=== PATIENT | female | born 1955 | race Caucasian/White ===

== ENCOUNTER 2016-05-05 16:30 | Emergency (ER) | payer OTHER ==
[~2016-05-05] VITALS: Ht 160 cm; Wt 90.5 kg
[~2016-05-05 16:30] MED LIST: ALBUAER2 INH; ALEN70TA4 PO; AMIT100T2 PO; BUPR-267 PO; BUTA1CAP17 PO; CYCL10TA6 PO; FLUT0.0529 NAE; GABA600T PO; GLIP10TA9 PO; HYDR-5688 PO; LVS125 PO; MECL1TAB42 PO; MELO15TA4 PO; METF1000 PO; PRED10TA PO; SITA100T3 PO; TEMA30CA4 PO; TIOTCAP INH
[2016-05-05 16:35] VITALS: BP 154/48; PULSE 108; TEMP 37; O2SAT 93; Ht 160 cm; Wt 90.5 kg
--- NOTE | 2016-05-05 16:51 | EMERGENCY ROOM VISIT NOTE ---
ED Visit Note First contact with patient: 16:41 CHIEF COMPLAINT: Right third and fourth finger pain HISTORY OF PRESENT ILLNESS: This 60-year-old female presents the ER with chief complaint of pain and swelling in her right third and fourth finger secondary to trigger finger. The patient has an appointment with the fire management specialist for an injection into her finger. She was in pain today at work so her employer sent her over to the ER. The patient already has tramadol at home to take for pain. She has only been taking ibuprofen on an as-needed basis. The patient states that intermittently her fingers get stuck in the flexed position and she has to take her left hand to straighten her fingers. REVIEW OF SYSTEMS: 6 system review was performed and was negative unless stated otherwise in history of present illness. PMH: The patient is healthy; diabetes, kidney disease, carpal tunnel surgery, trigger finger surgery, rotator cuff tear repair, osteoporosis SOCIAL HISTORY: Patient lives with her son. She admits to tobacco use but denies any alcohol use PHYSICAL EXAM: Vital Signs: Were reviewed Reviewed Nurse's notes. GEN.: 60-year -old white female appears in no acute distress. MENTAL Status: Alert and oriented 3. RIGHT HAND: No gross bony deformity noted. No erythema or edema noted. The patient has tenderness to palpation over the distal third and fourth metacarpals. EMERGENCY DEPARTMENT COURSE: The patient was evaluated. I informed the patient that the injections by her fire management specialist or either hand surgeon were the definitive care or actually surgery. The patient understood this stated that her employer sent her over for evaluation. The patient's fingers were maria a taped together and she was discharged home in stable condition. DIAGNOSIS: Trigger finger of the right third and fourth fingers DISCHARGE INSTRUCTIONS: Keep fingers maria a taped if this aids in pain relief. Ibuprofen 600 mg every 6 hours with food for pain. Continue tramadol as needed for more severe pain. Keep scheduled appointment with rheumatology. Problem List Medical Problems: (1) CHOLELITHIASIS NOS Status: Chronic (2) DIAB ADAM WO COMPL, TYPE II OR UNSPEC TYPE, NOT UNCNTRLD Status: Chronic (3) ESOPHAGEAL REFLUX Status: Chronic (4) EXAM PRE-OPERATIVE NEC Status: Chronic (5) HYPERLIPIDEMIA NEC/NOS Status: Chronic (6) HYPERTENSION NOS Status: Chronic (7) MIGRAINE UNSPECIFIED W/O INTRACTABLE MIGRAINE Status: Chronic (8) OBESITY, NOS Status: Chronic (9) TOBACCO USE DISORDER Status: Chronic Current/Historical Medications Scheduled Alendronate Sodium (Fosamax), 70 MG PO WK Amitriptyline Hcl (Elavil), 100 MG PO HS Atorvastatin (Atorvastatin Calcium), 20 MG PO DAILY Bupropion Hcl (Bupropion Hcl Er), 150 MG PO DAILY Fluticasone Propionate (Nasal) (Flonase), 2 SPRAYS MARIANNE DAILY Gabapentin (Neurontin), 600 MG PO TID Glipizide (Glucotrol), 10 MG PO BID Lisinopril (Zestril), 20 MG PO QPM Meloxicam (Mobic), 15 MG PO QPM Metformin Hcl (Glucophage), 1,000 MG PO BIDM Pantoprazole (Protonix), 40 MG PO DAILY Ropinirole (Requip), 1 MG PO HS Sitagliptin Phosphate (Januvia), 100 MG PO DAILY Temazepam (Restoril), 30 MG PO HS Tiotropium [place] (Spiriva Handihaler), 1 CAP INH DAILY Scheduled PRN Albuterol (Ventolin Hfa), 2 PUFFS INH QID PRN for SOB/Wheezing Rwisjcepag-Qjslwafqvxvpl-Lasuo (Fioricet), 1 CAP PO Q6H PRN for Migraine Cyclobenzaprine Hcl (Flexeril), 10 MG PO TID PRN for Muscle Spasm Hydrocodone/Acetaminophen 5MG/325MG ([place] 5MG/325MG), 1 TABLET PO Q6 PRN for Pain Hyoscyamine Sulfate (Hyoscyamine Sulfate), 1 TAB PO Q4H PRN for CRAMPING/ STOMACH PAIN Levofloxacin (Levaquin), 500 MG PO DAILY PRN for copd rescue kit Meclizine Hcl (Meclizine Hcl), 1 TAB PO TID PRN for Dizziness or Vertigo Prednisone Tab (Prednisone), 10 MG PO UD PRN for copd rescue kit Tramadol (Ultram), 50-100 MG PO Q6H PRN for Pain Allergies Coded Allergies: Adhesives (Verified Allergy, Unknown, SWELLING;RASH, 11/17/15) Vital Signs Date Time Temp Pulse Resp B/P Pulse Ox O2 Delivery O2 Flow Rate FiO2 05/05/16 16:35 37.0 108 18 154/48 93 Room Air Departure Information Referrals Samy Arriola M.D.(HUGH) (PCP) Patient Instructions [facility]
[2016-05-05] MEDS ORDERED: PRVHFAIN INH (17:13)
[2016-05-05] MEDS ORDERED: SPRIN/30 INH (17:13)
[2016-05-05] MEDS ORDERED: TRAZ50TA35 PO (17:13)
[2016-05-05] MEDS ORDERED: FLUT0.15 NAE (17:13)
[2016-05-05] MEDS ORDERED: LISI-725 PO (17:25)
[2016-05-05] MEDS ORDERED: ROPI1TAB PO (17:26)
[2016-05-05] MEDS ORDERED: LPT/20 PO (21:06)
[2016-05-05] MEDS ORDERED: TRAM-10 PO (23:54)
[2016-05-05] MEDS ORDERED: LEVO1TAB33 PO (23:56)
[2016-05-05] MEDS ORDERED: PANT40TA PO (23:58)
== END 2016-05-05 17:04 | disposition home or self-care (01) ==
LOC: C.EDB 16:31 → C.EDD 17:04
DX: M65.331 Trigger finger, right middle finger (principal); M65.341 Trigger finger, right ring finger; K21.9 Gastro-esophageal reflux disease without esophagitis; E11.9 Type 2 diabetes mellitus without complications; E78.5 Hyperlipidemia, unspecified; I10 Essential (primary) hypertension; F17.200 Nicotine dependence, unspecified, uncomplicated

== ENCOUNTER 2016-12-09 11:13 | Emergency (ER) | payer OTHER ==
[~2016-12-09] VITALS: Ht 162.6 cm; Wt 94.6 kg
[~2016-12-09 11:13] MED LIST changes: -ALBUAER2 INH; -FLUT0.0529 NAE; +FLUT0.15 NAE; -HYDR-5688 PO; +LEVO1TAB33 PO; +LISI-725 PO; +LPT/20 PO; +PANT40TA PO; +PRVHFAIN INH; +ROPI1TAB PO; +SPRIN/30 INH; -TEMA30CA4 PO; -TIOTCAP INH; +TRAM-10 PO; +TRAZ50TA35 PO
[2016-12-09 11:15] VITALS: TEMP 37; O2SAT 92; Ht 162.6 cm; Wt 94.6 kg
[2016-12-09] MEDS ORDERED: ACETAMINOPHEN 500 MG TAB PO STA (12:10)
--- NOTE | 2016-12-09 12:13 | DIAGNOSTIC IMAGING REPORT ---
CHEST ONE VIEW PORTABLE CLINICAL HISTORY: Chest pain. COMPARISON STUDY: Chest radiograph November 17, 2015. FINDINGS: Lung volumes are normal. There is no consolidation to suggest pneumonia and there is no evidence of pulmonary edema. Linear left lower lung opacity is suggestive of atelectasis. Cardiomediastinal silhouette is normal. There is evidence for a previous distal right clavicular resection. IMPRESSION: No acute cardiopulmonary findings. Electronically signed by: Nishant Kern M.D. 12/09/2016 12:12 PM Dictated Date/Time: 12/09/2016 12:11 PM
--- NOTE | 2016-12-09 12:18 | EMERGENCY ROOM VISIT NOTE ---
History Report prepared by Ivana: London Billingsley Under the Supervision of: Dr. Miguel Azul M.D. First contact with patient: 12:07 Chief Complaint: CHEST PAIN Stated Complaint: CHEST PAIN Nursing Triage Summary: Patient arrived via ALS from work at [employer] on campus. Patient c/o heaviness in chest and intermittent, sharp 8/10 chest pain that started around 0900. Pain radiates to patients left arm/shoulder. Denies SOB, N/V/D. Patient given 325 aspirin by medics. Pain is reproducable with palpation. Hx of COPD, Type 2 DM, GERD. History of Present Illness The patient is a 61 year old female with a history of COPD and GERD who presents to the Emergency Room via ambulance with complaints of episodes of chest pain that started around 3 and a half hours ago. She says that she was getting ready to leave for work when she started having intermittent sharp chest pain. The patient states that the episodes are still happening, and the episodes last around a minute or 2. She rates the pain as an 8 out of 10 in severity. The patient notes that nothing in particular brings the pain on, and the pain has intermittently radiated to under her left shoulder blade. The patient adds that she has had an intermittent "weird" sensation into her left shoulder, and down her left arm. She states that taking a deep breath does not worsen the pain. She notes that this morning she has had more shortness of breath than usual when walking up a hill. The patient says that she has never had this chest pain before. She denies any nausea, sweating, cough, congestion, recent trauma, falls, or excess work. She also denies any recent long trips by car, plane or train. The patient has a family history of heart disease, but no personal history of it. The patient also has no history of clots in her legs or lungs. The patient says that her health has been at baseline recently. She adds that she had a stress test in August and . Source of History: patient Onset: 3 and a half hours ago Position: chest Symptom Intensity: 8/10 Quality: sharp Timing: other (episodes) Associated Symptoms: + SOB (worsened sob with exertion), + back pain (left shoulder blade), No diaphoresis, No cough, No nausea Note: Associated symptoms: Intermittent "weird" sensation into left shoulder, and down left arm. Denies congestion, recent trauma, falls, or excess work. Review of Systems See HPI for pertinent positives & negatives. A total of 10 systems reviewed and were otherwise negative. Past Medical & Surgical Medical Problems: (1) CHOLELITHIASIS NOS (2) DIAB ADAM WO COMPL, TYPE II OR UNSPEC TYPE, NOT UNCNTRLD (3) ESOPHAGEAL REFLUX (4) EXAM PRE-OPERATIVE NEC (5) HYPERLIPIDEMIA NEC/NOS (6) HYPERTENSION NOS (7) MIGRAINE UNSPECIFIED W/O INTRACTABLE MIGRAINE (8) OBESITY, NOS (9) TOBACCO USE DISORDER Family History Cancer Diabetes mellitus Heart disease Lung disease Social History Smoking Status: Current Every Day Smoker Alcohol Use: occasionally Drug Use: none Marital Status: single Housing Status: lives with family Occupation Status: employed Current/Historical Medications Scheduled Alendronate Sodium (Fosamax), 70 MG PO WK Atorvastatin (Atorvastatin Calcium), 20 MG PO DAILY Bupropion Hcl (Bupropion Hcl Er), 150 MG PO DAILY Fluticasone Propionate (Nasal) (Flonase Allergy Relief), 2 SPRAYS MARIANNE DAILY Gabapentin (Neurontin), 600 MG PO QID Glipizide (Glucotrol), 10 MG PO BID Lisinopril (Zestril), 20 MG PO QPM Meloxicam (Mobic), 15 MG PO QPM Metformin Hcl (Glucophage), 1,000 MG PO BIDM Pantoprazole (Protonix), 40 MG PO DAILY Ropinirole (Requip), 1.5 MG PO HS Sitagliptin Phosphate (Januvia), 100 MG PO DAILY Tiotropium [place] (Spiriva Handihaler), 1 CAP INH DAILY Trazodone Hcl (Trazodone), 150 MG PO HS Scheduled PRN Albuterol (Ventolin Hfa), 2 PUFFS INH QID PRN for SOB/Wheezing Iogyzonrzv-Eanukqdcccqdl-Zrjys (Fioricet), 1 CAP PO Q6H PRN for Migraine Cyclobenzaprine Hcl (Flexeril), 10 MG PO TID PRN for Muscle Spasm Levofloxacin (Levaquin), 500 MG PO DAILY PRN for COPD Resue Kit Prednisone Tab (Prednisone), 10 MG PO UD PRN for COPD Rescue Kit Tramadol (Ultram), 50-100 MG PO Q6H PRN for Pain Allergies Coded Allergies: Adhesives (Verified Allergy, Unknown, SWELLING;RASH, 12/09/16) Physical Exam Vital Signs Date Time Temp Pulse Resp B/P (MAP) Pulse Ox O2 Delivery O2 Flow Rate FiO2 12/09/16 14:40 89 18 115/83 93 12/09/16 13:34 93 12/09/16 13:13 86 18 109/63 91 Room Air 12/09/16 11:20 97 12/09/16 11:15 37.0 96 20 132/72 92 Room Air 12/09/16 11:15 92 Room Air 12/09/16 11:15 92 Room Air Physical Exam GENERAL: Patient is in no acute distress. HEENT: No acute trauma, normocephalic atraumatic, mucous membranes moist, no nasal congestion, no scleral icterus. NECK: No stridor, no adenopathy, no meningismus, trachea is midline. LUNGS: Clear to auscultation bilaterally, no wheeze, no rhonchi, breath sounds equal. HEART: Subtle systolic murmur with a regular rate and rhythm. CHEST: Tenderness to left chest next to the medial left breast. ABDOMEN: Soft, nontender, bowel sounds positive, no hernias, no peritonitis. EXTREMITIES: No cyanosis or edema, full range of motion of all the joints without pain or difficulty, no signs for acute trauma. NEUROLOGIC: Oriented x 3, no acute motor or sensory deficits, no focal weakness. SKIN: No rash, no jaundice, no diaphoresis. Medical Decision & Procedures ER Provider Diagnostic Interpretation: X-ray results as stated below per interpretation by me and the radiologist: CHEST ONE VIEW PORTABLE CLINICAL HISTORY: Chest pain. COMPARISON STUDY: Chest radiograph November 17, 2015. FINDINGS: Lung volumes are normal. There is no consolidation to suggest pneumonia and there is no evidence of pulmonary edema. Linear left lower lung opacity is suggestive of atelectasis. Cardiomediastinal silhouette is normal. There is evidence for a previous distal right clavicular resection. IMPRESSION: No acute cardiopulmonary findings. Electronically signed by: Nishant Kern M.D. 12/09/2016 12:12 PM Dictated Date/Time: 12/09/2016 12:11 PM Laboratory Results 12/09/16 11:15 12/09/16 11:15 Test 12/09/16 11:15 12/09/16 13:37 Red Blood Count 4.41 M/uL (4.2-5.4) Mean Corpuscular Volume 90.7 fL (80-100) Mean Corpuscular Hemoglobin 30.4 pg (25-34) Mean Corpuscular Hemoglobin Concent 33.5 g/dl (32-36) RDW Standard Deviation 46.2 fL (36.4-46.3) RDW Coefficient of Variation 13.9 % (11.5-14.5) Mean Platelet Volume 9.5 fL (7.4-10.4) Prothrombin Time 10.3 SECONDS (9.0-12.0) Prothromb Time International Ratio 1.0 (0.9-1.1) Activated Partial Thromboplast Time 28.2 SECONDS (21.0-31.0) Partial Thromboplastin Ratio 1.1 Anion Gap 8.0 mmol/L (3-11) Est Creatinine Clear Calc Drug Dose 92.8 ml/min Estimated GFR () 106.5 Estimated GFR (Non- 91.9 BUN/Creatinine Ratio 7.6 (10-20) Calcium Level 8.5 mg/dl (8.5-10.1) Total Bilirubin 0.2 mg/dl (0.2-1) Aspartate Amino Transf (AST/SGOT) 12 U/L (15-37) Alanine Aminotransferase (ALT/SGPT) 24 U/L (12-78) Alkaline Phosphatase 76 U/L (45-117) Total Creatine Kinase 126 U/L (26-192) Creatine Kinase MB 1.6 ng/ml (0.5-3.6) Creatine Kinase MB Ratio 1.3 (0-3.0) Total Protein 6.5 gm/dl (6.4-8.2) Albumin 3.5 gm/dl (3.4-5.0) Globulin 3.0 gm/dl (2.5-4.0) Albumin/Globulin Ratio 1.2 (0.9-2) Bedside Troponin I < 0.030 ng/ml (0-0.045) Laboratory results reviewed by me. Medications Administered Medications (Trade) Dose Ordered Sig/Saima Route Start Time Stop Time Status Last Admin Dose Admin Acetaminophen (Tylenol Tab) 1,000 mg NOW STAT PO 12/09/16 12:10 12/09/16 12:15 DC 12/09/16 12:22 1,000 MG ECG Indication: chest pain Rate (beats per minute): 93 Rhythm: normal sinus Findings: no acute ischemic change, no ectopy ED Course 1208: The patient was evaluated in room C10. A complete history and physical exam was performed. 1210: Ordered Tylenol Tab 1000 mg PO. 1333: I reevaluated and updated the patient. 1407: Reevaluated the patient and she is resting comfortably. Discussed results and discharge instructions: she verbalized understanding and agreement. The patient is ready for discharge. Medical Decision Differential diagnosis includes but is not limited to musculoskeletal pain, PE, HI, pericarditis, aortic dissection, pneumothorax. There is no leukocytosis or concerning anemia. No significant electrolyte abnormality, kidney failure or hepatitis. EKG shows a normal sinus rhythm, no acute ischemia. Cardiac enzyme testing 2 is not consistent with acute cardiac injury. Chest x-ray does not show pneumonia, mediastinal widening or pneumothorax. There is no coagulopathy. The patient had already received oral aspirin. She was given oral Tylenol for additional pain control. The patient's cardiac workup is benign. Her chest pain is reproducible on exam. I do think the pain is musculoskeletal. She is being discharged with anti-inflammatories, heat and rest. If worsening, she can return. Medication Reconcilliation Current Medication List: was personally reviewed by me Blood Pressure Screening Patient's blood pressure: Normal blood pressure Impression Primary Impression: Left sided chest pain Scribe Attestation The scribe's documentation has been prepared under my direction and personally reviewed by me in its entirety. I confirm that the note above accurately reflects all work, treatment, procedures, and medical decision making performed by me. Departure Information Dispostion Home / Self-Care Referrals Samy Arriola M.D.(HU[facility]) (PCP) Forms Call Back Authorization, HOME CARE DOCUMENTATION FORM, IMPORTANT VISIT INFORMATION Patient Instructions My [facility] Simple Emotion Additional Instructions motrin 600 mg 3x per day for 3 days may also use tylenol for pain no heavy lifting return for worsening symptoms follow with mary glass this week or early next heart testing today was all ok
[2016-12-09 12:41] LABS: MEAN CELL VOLUME 90.7 fL (80-100); MEAN CORPUSCULAR HEMOGLOBIN 30.4 pg (25-34); MEAN CORPUSCULAR HGB CONC 33.5 g/dl (32-36); MEAN PLATELET VOLUME 9.5 fL (7.4-10.4); PLATELET COUNT 214 K/uL (130-400); RED BLOOD COUNT 4.41 M/uL (4.2-5.4); WHITE BLOOD COUNT 6.99 K/uL (4.8-10.8)
[2016-12-09 12:43] LABS: PARTIAL THROMBOPLASTIN RATIO 1.1; PROTHROMBIN TIME (PATIENT) 10.3 SECONDS (9.0-12.0)
[2016-12-09 12:52] LABS: BUN/CREATININE RATIO 7.6 (10-20); CALCIUM 8.5 mg/dl (8.5-10.1); CREATININE 0.71 mg/dl (0.60-1.20); POTASSIUM 4.3 mmol/L (3.5-5.1)
[2016-12-09 12:57] LABS: ALB/GLOB RATIO 1.2 (0.9-2); CKMB/CK RATIO 1.3 (0-3.0)
[2016-12-09 14:40] VITALS: BP 115/83; PULSE 89; O2SAT 93
== END 2016-12-09 14:41 | disposition home or self-care (01) ==
LOC: EDBD 11:13 → C.EDC 11:14
DX: R07.9 Chest pain, unspecified (principal); E11.9 Type 2 diabetes mellitus without complications; K21.9 Gastro-esophageal reflux disease without esophagitis; E78.5 Hyperlipidemia, unspecified; I10 Essential (primary) hypertension; G43.909 Migraine, unspecified, not intractable, without status migrainosus; E66.9 Obesity, unspecified; F17.210 Nicotine dependence, cigarettes, uncomplicated; Z80.9 Family history of malignant neoplasm, unspecified; Z83.3 Family history of diabetes mellitus; Z82.49 Family history of ischemic heart disease and other diseases of the circulatory system; Z83.6 Family history of other diseases of the respiratory system; Z79.899 Other long term (current) drug therapy

== ENCOUNTER 2017-08-05 08:49 | Emergency (ER) | payer OTHER ==
[~2017-08-05] VITALS: Ht 162.6 cm; Wt 94.8 kg
[~2017-08-05 08:49] MED LIST changes: -AMIT100T2 PO; +HYDR-5688 PO; -LPT/20 PO; +LPT20 PO; -LVS125 PO; -MECL1TAB42 PO; +MELO-84 PO; -MELO15TA4 PO
[2017-08-05 08:50] VITALS: TEMP 36.7; Ht 162.6 cm; Wt 94.8 kg
[2017-08-05] MEDS ORDERED: REPA1TAB5 PO (09:10)
--- NOTE | 2017-08-05 09:59 | DIAGNOSTIC IMAGING REPORT ---
SINGLE VIEW CHEST CLINICAL HISTORY: Back pain. FINDINGS: A PA chest radiograph is compared to study dated 12/09/2016. The cardiomediastinal silhouette is unremarkable. There is mild atherosclerotic calcification of the thoracic aorta. Chronic interstitial thickening is similar to previous. Platelike atelectasis is seen at the left lung base. No airspace consolidation or pleural effusion is identified. No pneumothorax is seen. The skeletal structures are osteopenic. Degenerative change is noted in the shoulders and thoracic spine. IMPRESSION: No active disease in the chest. Electronically signed by: Migule Adair M.D. 08/05/2017 9:58 AM Dictated Date/Time: 08/05/2017 9:57 AM
--- NOTE | 2017-08-05 10:01 | DIAGNOSTIC IMAGING REPORT ---
THORACIC SPINE 3 VIEWS ROUTINE CLINICAL HISTORY: MID T SPINE PAIN COMPARISON STUDY: 04/28/2013 FINDINGS: The paraspinal line is not displaced. There are moderate multilevel degenerative changes. No fractures or subluxations are visualized. IMPRESSION: Moderately advanced multilevel degenerative change. No acute fractures are visualized on conventional radiographic imaging Electronically signed by: Buddy Ramsey M.D. 08/05/2017 10:00 AM Dictated Date/Time: 08/05/2017 10:00 AM
--- NOTE | 2017-08-05 10:24 | EMERGENCY ROOM VISIT NOTE ---
History Report prepared by Ivana: Mariela Osorio Under the Supervision of: Dr. Edenilson Bird D.O. First contact with patient: 09:14 Chief Complaint: BACK PAIN Stated Complaint: SEVERE PAIN IN BACK History of Present Illness The patient is a 61 year old female who presents to the Emergency Room with complaints of worsening back pain beginning a week and a half ago. The patient reports she fell out of her bed a week and a half ago. Her pain worsens when she takes a deep breath and when she twists side to side. She states her pain shoots to her right shoulder blade. The patient has been taking tramadol and Flexeril for her pain with no relief. Source of History: patient Onset: a week and a half ago Position: back Quality: other (pain/shooting) Timing: worsening Modifying Factors (Worsening): breathing, other (twisting) Associated Symptoms: + back pain Review of Systems See HPI for pertinent positives & negatives. A total of 10 systems reviewed and were otherwise negative. Past Medical & Surgical Medical Problems: (1) CHOLELITHIASIS NOS (2) DIAB ADAM WO COMPL, TYPE II OR UNSPEC TYPE, NOT UNCNTRLD (3) ESOPHAGEAL REFLUX (4) EXAM PRE-OPERATIVE NEC (5) HYPERLIPIDEMIA NEC/NOS (6) HYPERTENSION NOS (7) MIGRAINE UNSPECIFIED W/O INTRACTABLE MIGRAINE (8) OBESITY, NOS (9) TOBACCO USE DISORDER Family History Cancer Diabetes mellitus Heart disease Lung disease Social History Smoking Status: Current Every Day Smoker Alcohol Use: occasionally Drug Use: none Marital Status: single Housing Status: lives with family Occupation Status: employed Current/Historical Medications Scheduled Alendronate Sodium (Fosamax), 70 MG PO WK Atorvastatin (Lipitor), 20 MG PO DAILY Bupropion Hcl (Bupropion Hcl Er), 150 MG PO DAILY Fluticasone Propionate (Nasal) (Flonase Allergy Relief), 2 SPRAYS MARIANNE DAILY Gabapentin (Neurontin), 600 MG PO QID Glipizide (Glucotrol), 10 MG PO BID Lisinopril (Zestril), 20 MG PO QPM Meloxicam (Mobic), 15 MG PO QPM Metformin Hcl (Glucophage), 1,000 MG PO BIDM Pantoprazole (Protonix), 40 MG PO DAILY Repaglinide (Prandin), 0.5 MG PO TIDM Ropinirole (Requip), 1.5 MG PO HS Tiotropium [place] (Spiriva Handihaler), 1 CAP INH DAILY Trazodone Hcl (Trazodone), 150 MG PO HS Scheduled PRN Albuterol (Ventolin Hfa), 2 PUFFS INH QID PRN for SOB/Wheezing Hcoabwsulp-Hpdfbumrsymvx-Bceax (Fioricet), 1 CAP PO Q6H PRN for Migraine Cyclobenzaprine Hcl (Flexeril), 10 MG PO TID PRN for Muscle Spasm Levofloxacin (Levaquin), 500 MG PO DAILY PRN for COPD Resue Kit Prednisone Tab (Prednisone), 10 MG PO UD PRN for COPD Rescue Kit Tramadol (Ultram), 50-100 MG PO Q6H PRN for Pain Allergies Coded Allergies: Adhesives (Verified Allergy, Unknown, SWELLING;RASH, 08/05/17) Physical Exam Vital Signs Date Time Temp Pulse Resp B/P (MAP) Pulse Ox O2 Delivery O2 Flow Rate FiO2 08/05/17 10:34 104 18 116/83 94 08/05/17 10:09 104 18 116/83 94 Room Air 08/05/17 08:50 36.7 111 16 131/72 92 Room Air Physical Exam CONSTITUTIONAL/VITAL SIGNS: Reviewed / noted above. GENERAL: Non-toxic in appearance. INTEGUMENTARY: Warm, dry, and [place]. HEAD: Normocephalic. EYES: without scleral icterus or trauma. ENT/OROPHARYNX: clear and moist. LYMPHADENOPATHY/NECK: Is supple without lymphadenopathy or meningismus. RESPIRATORY: Lungs clear and equal. CARDIOVASCULAR: Regular rate and rhythm. GI/ABDOMEN: Soft and nontender. No organomegaly or pulsatile mass. No rebound or guarding. Normal bowel sounds. EXTREMITIES: Warm and well perfused. BACK: No CVA tenderness. Mild tenderness to mid thoracic spine. NEUROLOGICAL: Intact without focal deficits. PSYCHIATRIC: normal affect. MUSCULOSKELETAL: Normally developed with good muscle tone. Medical Decision & Procedures ER Provider Diagnostic Interpretation: Radiology results as stated below per my review and radiologist interpretation: SINGLE VIEW CHEST FINDINGS: A PA chest radiograph is compared to study dated 12/09/2016. The cardiomediastinal silhouette is unremarkable. There is mild atherosclerotic calcification of the thoracic aorta. Chronic interstitial thickening is similar to previous. Platelike atelectasis is seen at the left lung base. No airspace consolidation or pleural effusion is identified. No pneumothorax is seen. The skeletal structures are osteopenic. Degenerative change is noted in the shoulders and thoracic spine. IMPRESSION: No active disease in the chest. Electronically signed by: Miguel Adair M.D. THORACIC SPINE 3 VIEWS ROUTINE FINDINGS: The paraspinal line is not displaced. There are moderate multilevel degenerative changes. No fractures or subluxations are visualized. IMPRESSION: Moderately advanced multilevel degenerative change. No acute fractures are visualized on conventional radiographic imaging Electronically signed by: Buddy Ramsey M.D. ED Course 0921: Previous medical records were reviewed. The patient was evaluated in room B6. A complete history and physical examination was performed. 1042: On reevaluation, the patient is resting comfortably. I discussed the results and findings with the patient. She verbalized agreement of the treatment plan. The patient was discharged home. Medical Decision Differential considered includes cauda equina syndrome, conus medullaris, spinal cord compression syndrome, peripheral nerve compression, fractures or subluxations, intra-abdominal pathology such as abdominal aortic aneurysm or kidney stones, muscle strain, transverse myelitis, spinal cord injury. This is a 61-year-old female who presents to the ED with chief complaint of midthoracic back pain. The patient states that her symptoms started about a week and a half ago after she fell out of bed. She states that she had some discomfort in that area. Wednesday she turned to grab something and heard a pop in her back. She states that since that time, her back is hurting in that region when she turns or moves or even takes a deep breath. Her vital signs here are stable. Her physical exam did not reveal any obvious trauma. She does have some mild tenderness to palpation of the mid thoracic region as well as some of the paraspinal musculature in the area. X-rays of the chest and T- spine were performed. There was no significant abnormality noted. The patient was felt to be stable for discharge. She does take Ultram and has Flexeril as well. Medication Reconcilliation Current Medication List: was personally reviewed by me Blood Pressure Screening Patient's blood pressure: Normal blood pressure Impression Primary Impression: Thoracic back pain Scribe Attestation The scribe's documentation has been prepared under my direction and personally reviewed by me in its entirety. I confirm that the note above accurately reflects all work, treatment, procedures, and medical decision making performed by me. Departure Information Dispostion Home / Self-Care Referrals Samy Arriola M.D.(SHERICE) (PCP) Forms HOME CARE DOCUMENTATION FORM, IMPORTANT VISIT INFORMATION Patient Instructions [facility] Additional Instructions Continue your tramadol and Flexeril. Anticipate improvement of symptoms over the next week or 2. Follow-up with your doctor for further care and evaluation in 1-2 weeks. Return to the emergency department for worsening or new symptoms or any concerns. You have been examined and treated today on an emergency basis only. This is not a substitute for, or an effort to provide, complete comprehensive medical care. It is impossible to recognize and treat all injuries or illnesses in a single emergency department visit. It is therefore important that you follow up closely with your doctor. Call as soon as possible for an appointment.
[2017-08-05 10:34] VITALS: BP 116/83; PULSE 104; O2SAT 94
== END 2017-08-05 10:35 | disposition home or self-care (01) ==
LOC: C.EDB 08:50
DX: M54.6 Pain in thoracic spine (principal); W06.XXXA Fall from bed, initial encounter; E11.9 Type 2 diabetes mellitus without complications; K21.9 Gastro-esophageal reflux disease without esophagitis; E78.5 Hyperlipidemia, unspecified; I10 Essential (primary) hypertension; F17.200 Nicotine dependence, unspecified, uncomplicated; Z79.84 Long term (current) use of oral hypoglycemic drugs; Z79.899 Other long term (current) drug therapy; Z91.048 Other nonmedicinal substance allergy status; Z83.3 Family history of diabetes mellitus; Z82.49 Family history of ischemic heart disease and other diseases of the circulatory system

== ENCOUNTER 2022-03-02 06:52 | Inpatient (IN) ==
[2022-03-02] MEDS ORDERED: SODIUM CHLORIDE 0.9% 1000ML 1,000 ML IV ONE (07:20)
[2022-03-02] MEDS ORDERED: ONDANSETRON INJ 2 MG/ML 2 ML VIAL IV STA (07:20)
--- NOTE | 2022-03-02 07:24 | Emergency Department Note ---
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 Reports over the past approximately 4 days to develop pain in the mid the left upper abdomen and around the stoma site. Minimal output over the last several days with stoma site with associated nausea and vomiting. States he is not able to eat or drink very much has been throwing up most she tries to take him. Decreased urine output this morning. Denies significant chest pain or shortness of breath. Denies any trauma. Denies bloody vomiting or output from the stoma though again stoma output is minimal at this time. States she did cough hard the other day and this is caused a bit of pain around the stoma. States that she was try to wait it out to talk with her surgeon Dr. Faith at [facility] but was unable to get a hold over the weekend and finally came in this morning. Has been trying some Compazine at home without significant effect. Patient states she has noticed his heart rate being a bit elevated. REVIEW OF SYSTEMS: A total of 10 review of systems was obtained and negative except as stated above in the HPI. PAST MEDICAL HISTORY: As noted above MEDICATIONS: Reviewed home medications. SOCIAL HISTORY: Smoker PHYSICAL EXAM: GENERAL: alert and oriented laying in the stretcher with emesis bag and family at bedside. Head: normocephalic and atraumatic EYES: No injection, discharge or icterus. NECK: Trachea midline. ENT: Mucous membranes pink and moist. LUNGS: Airway patent. No retractions. Breath sounds clear HEART: Regular tachycardic rate and rhythm. No chest wall tenderness ABDOMEN: Soft moderately distended with mid right-sided stoma in place pink in nature. Not significantly tender and without guarding of the abdomen but again is distended. SKIN: Acyanotic, warm, dry, without rashes EXTREMITIES: Without swelling, tenderness or deformity NEUROLOGICAL: No focal deficits. No aphasia. No facial droop or slurred speech. EK bpm sinus tachycardia. No PVC or PAC. No acute ST segment elevation on with a QTC of 403. CONTINUOUS CARDIAC MONITORING: was ordered and showed a heart rate of 120s-160s bpm in sinus tachycardia Patient's laboratory studies and imaging reviewed. Differential includes Appendicitis, infections, diverticulitis, UTI, obstruction, mesenteric ischemia, aortic pathology, inflammatory bowel disease, renal colic, PUD, pancreatitis, biliary pathology, hernia, volvulus, constipation, as well as other pathologies. IMPRESSION/MEDICAL DECISION MAKING: Patient history of ileostomy from prior SCC of the anal canal now with decreased output nausea and vomiting and abdominal distention. Question of this could represent an obstruction. Lower suspicion for perforation at this time as she is not peritoneal. We will complete a CT scan of the abdomen pelvis obtain basic blood work. Noted to be significantly tachycardic here upon arrival. Question cardiac etiology versus stress reaction/pain reaction. Given some Zofran and IV fluids initially. EKG we will complete a troponin. Electrolytes again completed with basic labs as well as lipase. Blood work with mild leukocytosis 1.28. Hemoglobin elevated at 18 today both new in comparison to previous. Platelets normal at 347. Chest x-ray report shows emphysematous changes. No troponin elevation. Heart rate somewhat variable in the 140s to 160s appears sinus tachycardia on telemetry and EKG; entertain possible atrial flutter but given the variability seems less likely. No lipase elevation and doubt pancreatitis. No significant AST, ALT, alkaline phosphatase elevation. Bilirubin just above normal at 1.4. Creatinine appears significantly elevated today at 1.4 with hyponatremia of [address] scan report indicates a small bowel obstruction questioning a transition point of a parastomal hernia. Discussed with general surgery here. They recommend I discussed with the colorectal team at [facility]. Discussed with him via phone. Patient excepted there but no available bed. NG tube placement checked with chest x-ray as she still having some vomiting and this showed curling. NG tube repositioning was attempted. Medical team/hospitalist contacted here for admission pending availability of a bed for transfer. NG tube repositioned eventually with now multiple liters of stomach contacts removed with some improvement of her symptoms. Again evaluated by the hospitalist who admitted to the floor pending available bed for transfer. DIAGNOSIS: Small bowel obstruction, parastomal hernia, vomiting DISPOSITION: Hospitalist will evaluate Patient was agreeable with this plan. Past Med/Surg History Medical History (Updated 11/21/22 @ 12:53 by CEE Moss) Bleeding hemorrhoids Breast infection in female Hx of chronic left breast infections for 20 years Bursitis, scapulohumeral Chronic back pain Constipation COPD (chronic obstructive pulmonary disease) Degenerative disc disease Diabetic neuropathy Bilateral hands and feet DJD (degenerative joint disease) DM type 2 (diabetes mellitus, type 2) Essential tremor Fibromyalgia GERD (gastroesophageal reflux disease) Heart murmur Hip pain, chronic right History of hemorrhoids HLD (hyperlipidemia) Hyperlipemia Ileostomy present Insomnia Low back pain with right-sided sciatica multiple pain management injections with Dr. Archer Squamous cell carcinoma of anal canal Diagnosed 05/05/2019. Invasive, moderately differientiated, P-16 positive, Positive margin. s/p ileostomy, completed mitomycin x1 dose on 06/14/2019 and Xeloda along with radiation treatment between 06/09/2019-07/28/2019 Surgical History History of arthroplasty of left knee History of arthroscopy of right knee History of breast biopsy 1994, 2001 History of breast surgery nipple areola reconstruction, s/p multiple infections History of cholecystectomy 08/17/16 History of colonoscopy 2010, 2016 History of hemorrhoidectomy 02/17/19 History of hernia repair History of hysterectomy age 37 History of neck surgery excision of lipoma-08/23/17 History of rectal abscess with I &D 05/05/19 History of shoulder surgery right 2009, ;left-2012. S/P trigger finger release Status post trigger finger release Family History Grandmother (Maternal) , in 60's Lung cancer Brother No problems noted. Sister No problems noted. Daughter No problems noted. Son No problems noted. Other No pertinent family history in first degree relatives Social History Smoking Status: Current every day smoker packs per day: 1; Second Hand Exposure: No; Do You Dip or Chew Tobacco: No; Tobacco Cessation Education Requested by Patient: No Hx Alcohol Use: No Hx Substance Use: No Preferred Language: Chinese Communication Ability: Effective Visual Impairment: Limited Hearing Ability: Hard of Hearing [employer] Required: No Beliefs That Will Affect Care: None marital status: Current Living Situation: Significant Other current occupational status: disabled current occupation: last worked in [facility] as [employer] in march Other Information That Helps Us Care for You: No Feels Safe at Home: Yes Safety Concerns: Feels Safe At This Time Childhood Exposure to Second-Hand Smoke: Yes caffeine: Yes (mountain dew daily 2 liters a day) Dental Care, Regularly: No Assistive Devices: None Allergies Allergies Allergy/AdvReac Type Severity Reaction Status Date / Time adhesive Allergy Mild SWELLING/RA Verified 06/03/21 14:09 Home Meds Home Medications Medication Instructions Recorded Confirmed aspirin 81 mg tablet,delayed 81 mg PO QAM 02/26/19 03/02/22 release atorvastatin 20 mg tablet 20 mg PO HS 02/26/19 03/02/22 bupropion HCl 150 mg 24 hr tablet, 150 mg PO QAM 02/26/19 03/02/22 extended release (Wellbutrin XL) fluticasone propionate 50 2 spray intranasal QAM PRN Allergy 02/26/19 03/02/22 mcg/actuation nasal Symptoms spray,suspension gabapentin 600 mg tablet 600 mg PO TID 02/26/19 03/02/22 metformin 1,000 mg tablet 1,000 mg PO BIDM 02/26/19 03/02/22 pantoprazole 40 mg tablet,delayed 40 mg PO QAM 02/26/19 03/02/22 release (Protonix) sertraline 50 mg tablet 50 mg PO HS 02/26/19 03/02/22 tiotropium bromide 18 mcg capsule 1 cap inhalation QAM 02/26/19 03/02/22 with inhalation device (Spiriva with HandiHaler) trazodone 50 mg tablet 50 mg PO HS 02/26/19 03/02/22 albuterol sulfate 90 mcg/actuation 2 puff inhalation Q4H PRN 03/31/19 03/02/22 aerosol inhaler Shortness Of Breath Or Wheezing hydromorphone 4 mg tablet 4 mg PO Q4H PRN pain 07/27/19 03/02/22 (Dilaudid) cyclobenzaprine 10 mg tablet 10 mg PO TID Muscle Spasm 11/17/19 03/02/22 ondansetron HCl 8 mg tablet 8 mg PO Q8H PRN Nausea 05/29/20 03/02/22 prochlorperazine maleate 10 mg 10 mg PO Q6H PRN Constipation 05/29/20 03/02/22 tablet (Compazine) fluticasone fur. 200 mcg-umeclid 1 inh inhalation DAILY 03/02/22 03/02/22 62.5 mcg-vilant 25 mcg inhalat.powder (Trelegy Ellipta) furosemide 20 mg tablet 20 mg PO DAILY PRN Edema 03/02/22 03/02/22 meloxicam 15 mg tablet 15 mg PO DAILY 03/02/22 03/02/22 morphine 30 mg tablet,extended 30 mg PO BID 03/02/22 03/02/22 release propranolol 20 mg tablet 20 mg PO BID 03/02/22 03/02/22 ropinirole 3 mg tablet 3 mg PO HS 03/02/22 03/02/22 Results & Data (ED) Vital Signs Vital Signs - 24 hr 03/02/22 06:54 03/02/22 07:25 03/02/22 07:47 Temperature 36.8 C Temperature Source Temporal Artery Scan Pulse Rate 81 162 H Pulse Rate [Apical] 149 H Respiratory Rate 20 18 Respiratory Effort / Characteristics Non-Labored Spontaneous Non-Labored Respiratory Depth Normal Normal Respiratory Pattern Regular Blood Pressure 130/95 Blood Pressure [Right Arm] 144/89 H Blood Pressure Mean 106 Blood Pressure Mean [Right Arm] 107 Pulse Oximetry 92 92 94 Oxygen Delivery Method Room Air Room Air Nasal Cannula Oxygen Flow Rate 2 Sepsis Recent Fever Within 48 Hours No Sepsis New/Unexplained Change in Mental Status No Sepsis Action Taken by Nursing No Action Required 03/02/22 09:20 03/02/22 11:32 Temperature Temperature Source Pulse Rate Pulse Rate [Apical] 129 H 137 H Respiratory Rate 18 18 Respiratory Effort / Characteristics Non-Labored Non-Labored Respiratory Depth Normal Normal Respiratory Pattern Blood Pressure Blood Pressure [Right Arm] 155/90 H 139/88 Blood Pressure Mean Blood Pressure Mean [Right Arm] 111 105 Pulse Oximetry 94 92 Oxygen Delivery Method Nasal Cannula Oxymask Oxygen Flow Rate 2 4 Sepsis Recent Fever Within 48 Hours Sepsis New/Unexplained Change in Mental Status Sepsis Action Taken by Nursing Laboratory Data Result diagrams: 03/02/22 07:27 03/02/22 07:27 Lab Results 03/02/22 03/02/22 03/02/22 Range/Units 07:27 07:27 07:27 WBC 11.28 H (4.8-10.8) K/ul RBC 5.83 H (3.93-5.22) M/uL Hgb 18.0 H (12.0-16.0) g/dl Hct 50.5 H (34.1-44.9) % MCV 86.6 (80.0-100.0) fL MCH 30.9 (25.0-34.0) pg MCHC 35.6 (32.0-36.0) g/dL RDW Std Deviation 44.5 (36.4-46.3) fL RDW Coeff of Chelle 14.1 (11.5-14.5) % Plt Count 347 (130-400) K/uL MPV 8.6 L (9.4-12.3) fL Immature Gran % (Auto) 0.5 % Neut % (Auto) 80.0 % Lymph % (Auto) 8.1 % Reynolds % (Auto) 10.7 % Eos % (Auto) 0.2 % Baso % (Auto) 0.5 % Neut # (Auto) 9.02 H (1.4-6.5) K/uL Lymph # (Auto) 0.91 L (1.2-3.4) K/uL Reynolds # (Auto) 1.21 H (0.24-0.82) K/uL Eos # (Auto) 0.02 (0-0.50) K/uL Baso # (Auto) 0.06 (0-0.2) K/uL Immature Gran # (Auto) 0.06 H (0.00-0.02) K/uL Polychromasia 1+ PT 11.6 (9.0-12.0) Seconds INR 1.1 (0.9-1.1) Sodium 129 L (136-145) mmol/L Potassium 4.3 (3.5-5.1) mmol/L Chloride 75 L (98-107) mmol/L Carbon Dioxide 33 H (21-32) mmol/L Anion Gap 21 H (3-11) BUN 32 H (6-23) mg/dl Creatinine 1.42 H (0.6-1.2) mg/dl Est Cr Clr Drug Dosing 38.6 ml/min Est GFR ( Amer) 44.5 ml/min Est GFR (Non-Af Amer) 38.4 ml/min BUN/Creatinine Ratio 22.5 H (10-20) Glucose 229 H (70-99(Fasting)) mg/dl Calcium 10.9 H (8.5-10.1) mg/dl Magnesium (1.7-2.4) mg/dl Total Bilirubin 1.4 H (0.2-1.0) mg/dl AST 19 (13-39) U/L ALT 32 (7-52) U/L Alkaline Phosphatase 65 (34-104) U/L Troponin I High Sens 9.6 (0-14) pg/ml Total Protein 8.6 H (6.0-8.3) gm/dl Albumin 5.0 (3.4-5.0) gm/dl Globulin 3.6 (2.5-4.0) gm/dl Albumin/Globulin Ratio 1.4 (0.9-2) Lipase 5 L (11-82) U/L TSH (0.300-4.500) uIu/ml SARS-CoV-2, RNA, NAAT (NEGATIVE) 03/02/22 03/02/22 03/02/22 Range/Units 07:27 07:27 07:37 WBC (4.8-10.8) K/ul RBC (3.93-5.22) M/uL Hgb (12.0-16.0) g/dl Hct (34.1-44.9) % MCV (80.0-100.0) fL MCH (25.0-34.0) pg MCHC (32.0-36.0) g/dL RDW Std Deviation (36.4-46.3) fL RDW Coeff of Chelle (11.5-14.5) % Plt Count (130-400) K/uL MPV (9.4-12.3) fL Immature Gran % (Auto) % Neut % (Auto) % Lymph % (Auto) % Reynolds % (Auto) % Eos % (Auto) % Baso % (Auto) % Neut # (Auto) (1.4-6.5) K/uL Lymph # (Auto) (1.2-3.4) K/uL Reynolds # (Auto) (0.24-0.82) K/uL Eos # (Auto) (0-0.50) K/uL Baso # (Auto) (0-0.2) K/uL Immature Gran # (Auto) (0.00-0.02) K/uL Polychromasia PT (9.0-12.0) Seconds INR (0.9-1.1) Sodium (136-145) mmol/L Potassium (3.5-5.1) mmol/L Chloride (98-107) mmol/L Carbon Dioxide (21-32) mmol/L Anion Gap (3-11) BUN (6-23) mg/dl Creatinine (0.6-1.2) mg/dl Est Cr Clr Drug Dosing ml/min Est GFR ( Amer) ml/min Est GFR (Non-Af Amer) ml/min BUN/Creatinine Ratio (10-20) Glucose (70-99(Fasting)) mg/dl Calcium (8.5-10.1) mg/dl Magnesium 1.5 L (1.7-2.4) mg/dl Total Bilirubin (0.2-1.0) mg/dl AST (13-39) U/L ALT (7-52) U/L Alkaline Phosphatase (34-104) U/L Troponin I High Sens (0-14) pg/ml Total Protein (6.0-8.3) gm/dl Albumin (3.4-5.0) gm/dl Globulin (2.5-4.0) gm/dl Albumin/Globulin Ratio (0.9-2) Lipase (11-82) U/L TSH 0.988 (0.300-4.500) uIu/ml SARS-CoV-2, RNA, NAAT NEGATIVE (NEGATIVE) Administered Medications Discontinued Medications Hydromorphone HCl (Hydromorphone Inj 0.5 Mg/0.5 Ml Syr) 0.5 mg IV NOW STA Stop: 03/02/22 07:28 Last Admin: 03/02/22 07:33 Dose: 0.5 mg Documented By: STAR Hydromorphone HCl (Hydromorphone Inj 1 Mg/Ml Syringe) 1 mg IV NOW STA Stop: 03/02/22 10:42 Last Admin: 03/02/22 11:18 Dose: 1 mg Documented By: STAR Sodium Chloride (Nss 1000ml) 1,000 mls @ 999 mls/hr IV .Q1H1M ONE Stop: 03/02/22 08:20 Last Infusion: 03/02/22 09:05 Dose: 0 mls/hr Documented By: Admin: 03/02/22 07:34 Dose: 999 mls/hr Documented By: STAR Magnesium Sulfate/Dextrose (Magnesium Sulfate / D5w) 1 gm in 100 mls @ 200 mls/hr IV Q30M HANNAH Stop: 03/02/22 09:59 Last Infusion: 03/02/22 10:42 Dose: 0 mls/hr Documented By: Admin: 03/02/22 10:00 Dose: 200 mls/hr Documented By: Infusion: 03/02/22 09:31 Dose: 200 mls/hr Documented By: Admin: 03/02/22 09:01 Dose: 200 mls/hr Documented By: STAR Lactated Ringer's (Lr) 1,000 mls @ 999 mls/hr IV .Q1H1M ONE Stop: 03/02/22 09:51 Last Infusion: 03/02/22 10:19 Dose: 0 mls/hr Documented By: Admin: 03/02/22 09:01 Dose: 999 mls/hr Documented By: STAR Lactated Ringer's (Lr) 1,000 mls @ 999 mls/hr IV .Q1H1M ONE Stop: 03/02/22 11:41 Last Infusion: 03/02/22 13:25 Dose: 0 mls/hr Documented By: Admin: 03/02/22 11:18 Dose: 999 mls/hr Documented By: STAR Ioversol (Optiray 350 100ml) 93 ml IV ONCE ONE Stop: 03/02/22 08:34 Last Admin: 03/02/22 08:34 Dose: 93 ml Documented By: DAYTON Metoclopramide HCl (Metoclopramide Hcl Inj 5 Mg/Ml 2 Ml Vial) 10 mg IV NOW STA Stop: 03/02/22 10:42 Last Admin: 03/02/22 11:18 Dose: 10 mg Documented By: STAR Ondansetron HCl (Ondansetron Inj 2 Mg/Ml 2 Ml Vial) 4 mg IV NOW STA Stop: 03/02/22 07:21 Last Admin: 03/02/22 07:33 Dose: 4 mg Documented By: STAR Imaging Data Radiologist's Impression: Abdomen/Pelvis CT 03/02/22 07:08 CT OF THE ABDOMEN AND PELVIS WITH CONTRAST CLINICAL HISTORY: Pain around ileostomy, decreased output. COMPARISON STUDY: PET/CT March 28, 2020.. Pelvic MRI June 05, 2019. CT of the chest, abdomen and pelvis November 23, 2019. TECHNIQUE: Following IV administration of 93 mL of Optiray, axial images of the abdomen and pelvis were obtained from the lung bases to the proximal femurs. Images were reviewed in the axial, sagittal, and coronal planes. IV contrast was administered without complication. Automated exposure control was utilized for the study. A dose lowering technique was utilized adhering to the principles of ALARA. CT DOSE: 746.57 mGy.cm FINDINGS: Calcified granulomas within the lower lungs are noted. There is moderate circumferential wall thickening of the distal esophagus. There is no biliary ductal dilatation status post cholecystectomy. Liver, kidneys and pancreas are unremarkable. There is no hydronephrosis. Calcific granulomas within the spleen. Bilateral adrenal masses, left larger than right, are similar to earlier exams. These are likely benign given stability. No lymphadenopathy is present. The stomach is moderately distended and fluid-filled. Duodenum is significantly dilated and fluid-filled. A right lower quadrant diverting ileost delmis is noted with parastomal hernia which contains a few small bowel loops and trace ascites. The near entirety of the small bowel is moderately dilated and fluid-filled. Transition point is within the parastomal hernia on axial image 221 of 436. This is just proximal to the ileostomy. The distal small bowel is decompressed. The diverted terminal ileum is decompressed as expected. Masslike thickening of the rectum/anus shown on prior MRI has markedly resolved. There is minimal residual soft tissue thickening. This could reflect posttreatment change. IMPRESSION: 1. Findings consistent with a small bowel obstruction. Near entirety of the small bowel moderately dilated and fluid filled with transition point within the ileostomy parastomal hernia which contains a few small bowel loops and trace ascites. Associated fluid-filled distended stomach. Circumferential distal esophageal wall thickening is nonspecific but may reflect esophagitis. 2. Bilateral adrenal nodules which are unchanged from earlier exams. These are likely benign. 3. Marked improvement in rectal/anal mass-like thickening since previous MRI. Residual mild thickening may reflect posttreatment change however can be assessed on subsequent exams. ACT 112: Negative or not required by law. Electronically signed by: Nishant Kern M.D. 03/02/2022 8:58 AM Chest X-Ray 03/02/22 07:26 SINGLE VIEW CHEST CLINICAL HISTORY: Vomiting. Abdominal distention. Tachycardia. FINDINGS: An AP, portable, upright chest radiograph is compared to study dated 06/14/2019. Correlation is made with chest CT dated 11/23/2019. The cardiomediastinal silhouette is top normal for projection noting atherosclerotic calcification of the thoracic aorta. Emphysema and chronic interstitial thickening is similar to previous. There are scattered calcified granulomas. There is bibasilar scarring/atelectasis. No airspace consolidation or large pleural effusion is identified. No pneumothorax is seen. The skeletal structures are osteopenic. The bony thorax is grossly intact. Arthritic change is seen in the shoulders. IMPRESSION: Emphysematous change with no acute cardiopulmonary abnormality. ACT 112: Negative or not required by law. Electronically signed by: Miguel Adair M.D. 03/02/2022 7:41 AM Chest X-Ray 03/02/22 10:43 XR chest 1V portable HISTORY: Evaluate NG tube placement. COMPARISON: Chest 03/02/2022. FINDINGS: The NG tube is curled within the distal esophagus with the tip terminating at the proximal esophagus. This should be removed/replaced. No pneumothorax. No pleural effusions. The heart is normal in size. Left basilar linear densities consistent with subsegmental atelectasis. IMPRESSION: The NG tube is curled within the distal esophagus with the tip terminating at the proximal esophagus. This should be removed/replaced. This report was called/faxed to the referring physician following dictation. ACT 112: Negative or not required by law. Electronically signed by: Rohan Sutton M.D. 03/02/2022 11:09 AM Chest X-Ray 03/02/22 11:43 XR chest 1V portable HISTORY: NG tube repositioning. COMPARISON: Chest 03/02/2022. FINDINGS: No change in the abnormal position of the nasogastric tube which is looped within the distal esophagus with the tip terminating near the proximal esophagus. This should be removed/reattempted. No pneumothorax. No pleural effusions. The heart is normal in size. Left basilar subsegmental atelectasis persists. IMPRESSION: No change in the abnormal position of the nasogastric tube which is looped within the distal esophagus with the tip terminating near the proximal esop hagus. This should be removed/reattempted. ACT 112: Negative or not required by law. Electronically signed by: Rohan Sutton M.D. 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
[2022-03-02] MEDS ORDERED: HYDROmorphone INJ 0.5 MG/0.5 ML SYR IV STA (07:27)
[2022-03-02 07:41] LABS: Hematocrit (blood only) 50.5 % (34.1-44.9); Mean Corpuscular Hemoglobin 30.9 pg (25.0-34.0); Mean Corpuscular Hgb Conc 35.6 g/dL (32.0-36.0); Mean Corpuscular Volume 86.6 fL (80.0-100.0); Mean Platelet Volume 8.6 fL (9.4-12.3); Platelet Count 347 K/uL (130-400); RDW Coefficient of Variation 14.1 % (11.5-14.5); RDW Standard Deviation 44.5 fL (36.4-46.3); Red Blood Count 5.83 M/uL (3.93-5.22); White Blood Count 11.28 K/ul (4.8-10.8)
--- NOTE | 2022-03-02 07:42 | XRay Report ---
SINGLE VIEW CHEST CLINICAL HISTORY: Vomiting. Abdominal distention. Tachycardia. FINDINGS: An AP, portable, upright chest radiograph is compared to study dated 06/14/2019. Correlation is made with chest CT dated 11/23/2019. The cardiomediastinal silhouette is top normal for projection noting atherosclerotic calcification of the thoracic aorta. Emphysema and chronic interstitial thicke waqar is similar to previous. There are scattered calcified granulomas. There is bibasilar scarring/at electasis. No airspace consolidation or large pleural effusion is identified. No pneumothorax is seen . The skeletal structures are osteopenic. The bony thorax is grossly intact. Arthritic change is seen in the shoulders. IMPRESSION: Emphysematous change with no acute cardiopulmonary abnormality. ACT 112: Negative or not required by law. Electronically signed by: Miguel Adair M.D. 03/02/2022 7:41 AM
[2022-03-02 07:53] LABS: INR 1.1 (0.9-1.1); Prothrombin Time 11.6 Seconds (9.0-12.0)
[2022-03-02 08:20] LABS: Troponin I High Sensitivity 9.6 pg/ml (0-14)
[2022-03-02 08:22] LABS: Albumin Globulin Ratio 1.4 (0.9-2); BUN Creatinine Ratio 22.5 (10-20); Bilirubin,Total 1.4 mg/dl (0.2-1.0); Calcium 10.9 mg/dl (8.5-10.1); Creatinine Clr Calc Pharmacy 38.6 ml/min; Est GFR (African American) 44.5 ml/min; Est GFR (Non-African American) 38.4 ml/min; Globulin 3.6 gm/dl (2.5-4.0); Potassium 4.3 mmol/L (3.5-5.1); Total Protein 8.6 gm/dl (6.0-8.3)
[2022-03-02 08:32] LABS: Basophils # (auto) 0.06 K/uL (0-0.2); Basophils % (auto) 0.5 %; Eosinophils # (auto) 0.02 K/uL (0-0.50); Eosinophils % (auto) 0.2 %; Immature Granulocytes # (auto) 0.06 K/uL (0.00-0.02); Immature Granulocytes % (auto) 0.5 %; Lymphocytes # (auto) 0.91 K/uL (1.2-3.4); Lymphocytes % (auto) 8.1 %; Monocytes # (auto) 1.21 K/uL (0.24-0.82); Monocytes % (auto) 10.7 %; Neutrophils # (auto) 9.02 K/uL (1.4-6.5); Polychromasia 1+
[2022-03-02] MEDS ORDERED: OPTIRAY 350 100ml IV ONE (08:33)
[2022-03-02] MEDS ORDERED: LACTATED RINGER'S 1,000 ML IV ONE ×2 (08:51→10:41)
--- NOTE | 2022-03-02 08:59 | CT Scan Report ---
CT OF THE ABDOMEN AND PELVIS WITH CONTRAST CLINICAL HISTORY: Pain around ileostomy, decreased output. COMPARISON STUDY: PET/CT March 28, 2020.. Pelvic MRI June 05, 2019. CT of the chest, abdomen and pelvis November 23, 2019. TECHNIQUE: Following IV administration of 93 mL of Optiray, axial images of the abdomen and pelvis we re obtained from the lung bases to the proximal femurs. Images were reviewed in the axial, sagittal, and coronal planes. IV contrast was administered without complication. Automated exposure control wa s utilized for the study. A dose lowering technique was utilized adhering to the principles of ALARA . CT DOSE: 746.57 mGy.cm FINDINGS: Calcified granulomas within the lower lungs are noted. There is moderate circumferential wa ll thickening of the distal esophagus. There is no biliary ductal dilatation status post cholecystect delmis. Liver, kidneys and pancreas are unremarkable. There is no hydronephrosis. Calcific granulomas wi thin the spleen. Bilateral adrenal masses, left larger than right, are similar to earlier exams. Thes e are likely benign given stability. No lymphadenopathy is present. The stomach is moderately distend ed and fluid-filled. Duodenum is significantly dilated and fluid-filled. A right lower quadrant diver ting ileostomy is noted with parastomal hernia which contains a few small bowel loops and trace ascit es. The near entirety of the small bowel is moderately dilated and fluid-filled. Transition point is within the parastomal hernia on axial image 221 of 436. This is just proximal to the ileostomy. The d istal small bowel is decompressed. The diverted terminal ileum is decompressed as expected. Masslike thickening of the rectum/anus shown on prior MRI has markedly resolved. There is minimal residual sof t tissue thickening. This could reflect posttreatment change. IMPRESSION: 1. Findings consistent with a small bowel obstruction. Near entirety of the small bowel moderately di lated and fluid filled with transition point within the ileostomy parastomal hernia which contains a few small bowel loops and trace ascites. Associated fluid-filled distended stomach. Circumferential d istal esophageal wall thickening is nonspecific but may reflect esophagitis. 2. Bilateral adrenal nodules which are unchanged from earlier exams. These are likely benign. 3. Marked improvement in rectal/anal mass-like thickening since previous MRI. Residual mild thickenin g may reflect posttreatment change however can be assessed on subsequent exams. ACT 112: Negative or not required by law. Electronically signed by: Nishant Kern M.D. 03/02/2022 8:58 AM
[2022-03-02] MEDS: MAGNESIUM SULFATE / D5W 1 GM/100 ML BAG IV SCH ×2 (09:01→10:00)
[2022-03-02] MEDS ORDERED: HYDROmorphone INJ 1 MG/ML SYRINGE IV STA (10:41)
[2022-03-02] MEDS ORDERED: METOCLOPRAMIDE HCL INJ 5 MG/ML 2 ML VIAL IV STA (10:41)
--- NOTE | 2022-03-02 10:44 | Surgery Consultation ---
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 CT scan showing SBO with transition point at parastomal hernia. NGT placed with about 600 cc of brown output. Given patients distended abdomen, unable to completely ascertain if hernia was reducible on exam. No peritonitis. Plan: Given patients past surgical history and follows with colorectal surgeon Dr. Faith at [facility] , would recommend transfer to [place] for further management. Since she has had pain and extensive vomiting , she likely will need surgical intervention. Patient would prefer colorectal service and Dr. Faith for any surgical intervention. Keep NPO NGT to [facility] pain management as needed await call back from [place]. Reviewed patients imaging and outpatient records with Dr. Casper who agrees with above plan. History of Present Illness Reason for Consultation: Parastomal hernia with SBO Requesting Physician: South Mccarthy MD Attending Physician: South Mccarthy MD History of Present Illness Emiliana is a 66 year-old female with history of anal squamous cell carcinoma with diverting ileostomy 2 years ago followed by Colorectal surgeon Dr. Faith at [facility] presented to ED with complaint of abdominal pain with associated nausea and vomiting. States on she was coughing a noticed a tearing sensation around her stoma site with associated pain. States she did not feel very well for a few days and then started vomiting yesterday about 30 times. Unable to keep anything down. No output from her ileostomy. States the pain was highest at 9/10. [place] abdomen was distended as well. Er work-up included labs which showed mild leukocytosis. Hemoglobin 18. CT scan of abdomen and pelvis with IV contrast showing SBO with transition point in the parastomal hernia containing a few loops of small bowel. Distended fluid filled stomach. Upon ER evaluation patient has NGT in place with 500 cc of brownish output and about 50 cc in emesis bag. States her pain is about 8/10 currently. States she would prefer her surgeon (Dr. Faith) be aware of her current situation. ER doc is awaiting call back from [place] at this time. Allergies Allergy/AdvReac Type Severity Reaction Status Date / Time adhesive Allergy Mild SWELLING/RA Verified 06/03/21 14:09 Home Medications Medication Instructions Recorded Confirmed Type aspirin 81 mg tablet,delayed 81 mg PO QAM 02/26/19 06/03/21 History release atorvastatin 20 mg tablet 20 mg PO HS 02/26/19 06/03/21 History bupropion HCl 150 mg 24 hr tablet, 150 mg PO QAM 02/26/19 06/03/21 History extended release (Wellbutrin XL) fluticasone propionate 50 2 spray intranasal QAM PRN Allergy 02/26/19 06/03/21 History mcg/actuation nasal Symptoms spray,suspension gabapentin 600 mg tablet 600 mg PO TID 02/26/19 06/03/21 History metformin 1,000 mg tablet 1,000 mg PO BIDM 02/26/19 06/03/21 History pantoprazole 40 mg tablet,delayed 40 mg PO QAM 02/26/19 06/03/21 History release (Protonix) sertraline 50 mg tablet 50 mg PO HS 02/26/19 06/03/21 History tiotropium bromide 18 mcg capsule 1 cap inhalation QAM 02/26/19 06/03/21 History with inhalation device (Spiriva with HandiHaler) trazodone 50 mg tablet 50 mg PO HS 02/26/19 06/03/21 History albuterol sulfate 90 mcg/actuation 2 puff inhalation Q4H PRN 03/31/19 06/03/21 History aerosol inhaler Shortness Of Breath Or Wheezing hydromorphone 4 mg tablet 4 mg PO Q4H PRN pain 07/27/19 06/03/21 History (Dilaudid) cyclobenzaprine 10 mg tablet 10 mg PO TID Muscle Spasm 11/17/19 06/03/21 History ondansetron HCl 8 mg tablet 8 mg PO Q8H 05/29/20 06/03/21 History prochlorperazine maleate 10 mg 10 mg PO Q6H PRN 05/29/20 06/03/21 History tablet (Compazine) fluticasone fur. 200 mcg-umeclid 1 inh inhalation DAILY 03/02/22 03/02/22 Histo ry 62.5 mcg-vilant 25 mcg inhalat.powder (Trelegy Ellipta) furosemide 20 mg tablet 20 mg PO DAILY PRN Edema 03/02/22 03/02/22 History meloxicam 15 mg tablet 15 mg PO DAILY 03/02/22 03/02/22 History morphine 30 mg tablet,extended 30 mg PO BID 03/02/22 03/02/22 History release propranolol 20 mg tablet 20 mg PO BID 03/02/22 03/02/22 History ropinirole 3 mg tablet 3 mg PO HS 03/02/22 03/02/22 History Patient History Medical History (Updated 03/02/22 @ 12:53 by CEE Moss) Bleeding hemorrhoids Breast infection in female Hx of chronic left breast infections for 20 years Bursitis, scapulohumeral Chronic back pain Constipation COPD (chronic obstructive pulmonary disease) Degenerative disc disease Diabetic neuropathy Bilateral hands and feet DJD (degenerative joint disease) DM type 2 (diabetes mellitus, type 2) Essential tremor Fibromyalgia GERD (gastroesophageal reflux disease) Heart murmur Hip pain, chronic right History of hemorrhoids HLD (hyperlipidemia) Hyperlipemia Ileostomy present Insomnia Low back pain with right-sided sciatica multiple pain management injections with Dr. Archer Squamous cell carcinoma of anal canal Diagnosed 05/05/2019. Invasive, moderately differientiated, P-16 positive, Positive margin. s/p ileostomy, completed mitomycin x1 dose on 06/14/2019 and Xeloda along with radiation treatment between 06/09/2019-07/28/2019 Surgical History History of arthroplasty of left knee History of arthroscopy of right knee History of breast biopsy 1994, 2001 History of breast surgery nipple areola reconstruction, s/p multiple infections History of cholecystectomy 08/17/16 History of colonoscopy 2010, 2016 History of hemorrhoidectomy 02/17/19 History of hernia repair History of hysterectomy age 37 History of neck surgery excision of lipoma-08/23/17 History of rectal abscess with I &D 05/05/19 History of shoulder surgery right 2009, ;left-2012. S/P trigger finger release Status post trigger finger release Family History Grandmother (Maternal) , in 60's Lung cancer Brother No problems noted. Sister No problems noted. Daughter No problems noted. Son No problems noted. 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 Feels Safe at Home: Yes Childhood Exposure to Second-Hand Smoke: Yes caffeine: Yes (mountain dew daily 2 liters a day) Dental Care, Regularly: No Physical Exam Constitutional: + ill appearing, + obese and cooperative; no acute distress Neck: normal visual inspection and trachea midline Respiratory: normal respiratory effort; no respiratory distress, no labored breathing and no retractions Gastrointestinal (Abdomen): Inspection/Auscultation: + abdomen distended; + abnormal bowel sounds Percussion/Palpation: + abdomen tender (surrounding ostomy site.) and abdomen soft; no guarding and abdomen not rigid ileostomy with pink stoma, no ostomy output. Unable to fully acertain the hernia on exam. Attempted to reduce hernia on exam but given abdominal distension and obesity unable to completely feel if hernia was reduced. No peritonitis on exam. Skin: no rashes, warm and dry Psychiatric: Orientation: alert and oriented x 3 Results & Data ([facility]) Vital Signs (Past 12 Hours) Vital Signs Temp Pulse Pulse Resp BP BP Pulse Ox 03/02/22 09:20 129 H 18 155/90 H 94 03/02/22 07:47 149 H 18 144/89 H 94 03/02/22 07:25 162 H 92 03/02/22 06:54 36.8 C 81 20 130/95 92 O2 Del Method O2 Flow Rate 03/02/22 09:20 Nasal Cannula 2 03/02/22 07:47 Nasal Cannula 2 03/02/22 07:25 Room Air 03/02/22 06:54 Room Air Laboratory Results 03/02/22 03/02/22 03/02/22 Range/Units 07:37 07:27 07:27 WBC (4.8-10.8) K/ul RBC (3.93-5.22) M/uL Hgb (12.0-16.0) g/dl Hct (34.1-44.9) % MCV (80.0-100.0) fL MCH (25.0-34.0) pg MCHC (32.0-36.0) g/dL RDW Std Deviation (36.4-46.3) fL RDW Coeff of Chelle (11.5-14.5) % Plt Count (130-400) K/uL MPV (9.4-12.3) fL Immature Gran % (Auto) % Neut % (Auto) % Lymph % (Auto) % [place] % (Auto) % Eos % (Auto) % Baso % (Auto) % Neut # (Auto) (1.4-6.5) K/uL Lymph # (Auto) (1.2-3.4) K/uL [place] # (Auto) (0.24-0.82) K/uL Eos # (Auto) (0-0.50) K/uL Baso # (Auto) (0-0.2) K/uL Immature Gran # (Auto) (0.00-0.02) K/uL Polychromasia PT (9.0-12.0) Seconds INR (0.9-1.1) Sodium (136-145) mmol/L Potassium (3.5-5.1) mmol/L Chloride (98-107) mmol/L Carbon Dioxide (21-32) mmol/L Anion Gap (3-11) BUN (6-23) mg/dl Creatinine (0.6-1.2) mg/dl Est Cr Clr Drug Dosing ml/min Est GFR ( Amer) ml/min Est GFR (Non-Af Amer) ml/min BUN/Creatinine Ratio (10-20) Glucose (70-99(Fasting)) mg/dl Calcium (8.5-10.1) mg/dl Magnesium 1.5 L (1.7-2.4) mg/dl Total Bilirubin (0.2-1.0) mg/dl AST (13-39) U/L ALT (7-52) U/L Alkaline Phosphatase (34-104) U/L Troponin I High Sens (0-14) pg/ml Total Protein (6.0-8.3) gm/dl Albumin (3.4-5.0) gm/dl Globulin (2.5-4.0) gm/dl Albumin/Globulin Ratio (0.9-2) Lipase (11-82) U/L TSH 0.988 (0.300-4.500) uIu/ml SARS-CoV-2, RNA, NAAT NEGATIVE (NEGATIVE) 03/02/22 03/02/22 03/02/22 Range/Units 07:27 07:27 07:27 WBC 11.28 H (4.8-10.8) K/ul RBC 5.83 H (3.93-5.22) M/uL Hgb 18.0 H (12.0-16.0) g/dl Hct 50.5 H (34.1-44.9) % MCV 86.6 (80.0-100.0) fL MCH 30.9 (25.0-34.0) pg MCHC 35.6 (32.0-36.0) g/dL RDW Std Deviation 44.5 (36.4-46.3) fL RDW Coeff of Chelle 14.1 (11.5-14.5) % Plt Count 347 (130-400) K/uL MPV 8.6 L (9.4-12.3) fL Immature Gran % (Auto) 0.5 % Neut % (Auto) 80.0 % Lymph % (Auto) 8.1 % [place] % (Auto) 10.7 % Eos % (Auto) 0.2 % Baso % (Auto) 0.5 % Neut # (Auto) 9.02 H (1.4-6.5) K/uL Lymph # (Auto) 0.91 L (1.2-3.4) K/uL [place] # (Auto) 1.21 H (0.24-0.82) K/uL Eos # (Auto) 0.02 (0-0.50) K/uL Baso # (Auto) 0.06 (0-0.2) K/uL Immature Gran # (Auto) 0.06 H (0.00-0.02) K/uL Polychromasia 1+ PT 11.6 (9.0-12.0) Seconds INR 1.1 (0.9-1.1) Sodium 129 L (136-145) mmol/L Potassium 4.3 (3.5-5.1) mmol/L Chloride 75 L (98-107) mmol/L Carbon Dioxide 33 H (21-32) mmol/L Anion Gap 21 H (3-11) BUN 32 H (6-23) mg/dl Creatinine 1.42 H (0.6-1.2) mg/dl Est Cr Clr Drug Dosing 38.6 ml/min Est GFR ( Amer) 44.5 ml/min Est GFR (Non-Af Amer) 38.4 ml/min BUN/Creatinine Ratio 22.5 H (10-20) Glucose 229 H (70-99(Fasting)) mg/dl Calcium 10.9 H (8.5-10.1) mg/dl Magnesium (1.7-2.4) mg/dl Total Bilirubin 1.4 H (0.2-1.0) mg/dl AST 19 (13-39) U/L ALT 32 (7-52) U/L Alkaline Phosphatase 65 (34-104) U/L Troponin I High Sens 9.6 (0-14) pg/ml Total Protein 8.6 H (6.0-8.3) gm/dl Albumin 5.0 (3.4-5.0) gm/dl Globulin 3.6 (2.5-4.0) gm/dl Albumin/Globulin Ratio 1.4 (0.9-2) Lipase 5 L (11-82) U/L TSH (0.300-4.500) uIu/ml SARS-CoV-2, RNA, NAAT (NEGATIVE) Diagnostic Findings CT OF THE ABDOMEN AND PELVIS WITH CONTRAST CLINICAL HISTORY: Pain around ileostomy, decreased output. COMPARISON STUDY: PET/CT March 28, 2020.. Pelvic MRI June 05, 2019. CT of the chest, abdomen and pelvis November 23, 2019. TECHNIQUE: Following IV administration of 93 mL of Optiray, axial images of the abdomen and pelvis were obtained from the lung bases to the proximal femurs. Images were reviewed in the axial, sagittal, and coronal planes. IV contrast was administered without complication. Automated exposure control was utilized for the study. A dose lowering technique was utilized adhering to the principles of ALARA. CT DOSE: 746.57 mGy.cm FINDINGS: Calcified granulomas within the lower lungs are noted. There is moderate circumferential wall thickening of the distal esophagus. There is no biliary ductal dilatation status post cholecystectomy. Liver, kidneys and pancreas are unremarkable. There is no hydronephrosis. Calcific granulomas within the spleen. Bilateral adrenal masses, left larger than right, are similar to earlier exams. These are likely benign given stability. No lymphadenopathy is present. The stomach is moderately distended and fluid-filled. Duodenum is significantly dilated and fluid-filled. A right lower quadrant diverting ileostomy is noted with parastomal hernia which contains a few small bowel loops and trace ascites. The near entirety of the small bowel is moderately dilated a nd fluid-filled. Transition point is within the parastomal hernia on axial image 221 of 436. This is just proximal to the ileostomy. The distal small bowel is decompressed. The diverted terminal ileum is decompressed as expected. Masslike thickening of the rectum/anus shown on prior MRI has markedly resolved. There is minimal residual soft tissue thickening. This could reflect posttreatment change . IMPRESSION: 1. Findings consistent with a small bowel obstruction. Near entirety of the small bowel moderately dilated and fluid filled with transition point within the ileostomy parastomal hernia which contains a few small bowel loops and trace ascites. Associated fluid-filled distended stomach. Circumferential distal esophageal wall thickening is nonspecific but may reflect esophagitis. 2. Bilateral adrenal nodules which are unchanged from earlier exams. These are likely benign. 3. Marked improvement in rectal/anal mass-like thickening since previous MRI. Residual mild thickening may reflect posttreatment change however can be assessed on subsequent exams.
--- NOTE | 2022-03-02 11:11 | XRay Report ---
XR chest 1V portable HISTORY: Evaluate NG tube placement. COMPARISON: Chest 03/02/2022. FINDINGS: The NG tube is curled within the distal esophagus with the tip terminating at the proximal esophagus. This should be removed/replaced. No pneumothorax. No pleural effusions. The heart is janeth l in size. Left basilar linear densities consistent with subsegmental atelectasis. IMPRESSION: The NG tube is curled within the distal esophagus with the tip terminating at the proximal esophagus. This should be removed/replaced. This report was called/faxed to the referring physician following d ictation. ACT 112: Negative or not required by law. Electronically signed by: Rohan Sutton M.D. 03/02/2022 11:09 AM
--- NOTE | 2022-03-02 12:21 | XRay Report ---
XR chest 1V portable HISTORY: NG tube repositioning. COMPARISON: Chest 03/02/2022. FINDINGS: No change in the abnormal position of the nasogastric tube which is looped within the dista l esophagus with the tip terminating near the proximal esophagus. This should be removed/reattempted. No pneumothorax. No pleural effusions. The heart is normal in size. Left basilar subsegmental atelec tasis persists. IMPRESSION: No change in the abnormal position of the nasogastric tube which is looped within the distal esophagu s with the tip terminating near the proximal esophagus. This should be removed/reattempted. ACT 112: Negative or not required by law. Electronically signed by: Rohan Sutton M.D. 03/02/2022 12:20 PM
--- NOTE | 2022-03-02 12:24 | History & Physical Report ---
Date of Service March 02, 2022 Assessment & Plan (1) SBO (small bowel obstruction): (2) Parastomal hernia with obstruction and without gangrene: (3) Ileostomy present: (4) Primary squamous cell carcinoma of anal canal: Plan: Admit to tele Patient presenting from home with reports of nausea, vomiting, abdominal pain, low ostomy output. Hx anal squamous cell carcinoma s/p ileostomy, chemo, and radiation In the ED, CT abd/pelvis shows findings consistent with a small bowel obstruction. Near entirety of the small bowel moderately dilated and fluid filled with transition point within the ileostomy parastomal hernia which contains a few small bowel loops and trace ascites. Lactate 3.3, WBC 11K Evaluated by general surgery in the ED - recommending transfer to [facility] under the care of patient's previous colorectal surgeon, Dr. Faith. Patient accepted however no beds available at this time. NGT placed Serial lactates IVF, pain control (5) Hypoxia: Plan: Intermittent hypoxia noted in the high 80s while on room air Some wheezing on exam as well Hx of COPD with ongoing tobacco use CXR unremarkable PRN nebs, continue O2 supplement, wean as able. Consider home O2 eval before discharge. (6) JOSEPHINE (acute kidney injury): Plan: Creat 1.4, baseline ~ 0.8 Likely prerenal in nature due to GI loss from vomiting IVF, follow renal functions (7) Tachycardia: Plan: Presenting HR in the 150s, likely due to dehydration/hypovolemia Improving with IVF Also on propranolol for essential tremor and patient has been unable to tolerate PO meds due to N/V -- resume as able (8) Hypomagnesemia: (9) Hyponatremia: Plan: Na+129, Mg+ 1.5 Likely due to vomiting Monitor BMP/electrolytes (10) DM type 2 (diabetes mellitus, type 2): Plan: Hgb a1c 6.2 08/2021 Hold oral agents and utilize Novolog per protocol while hospitalized (11) COPD (chronic obstructive pulmonary disease): Plan: w/ ongoing tobacco use intermittent hypoxia and minimal wheezing on exam continue home inhalers, prn nebs, wean O2 as able (12) Fibromyalgia: (13) Chronic back pain: Plan: Typically managed with PO morphine, PO Dilaudid, and Wellbutrin -- holding for now due to NPO status/NG tube (14) Essential tremor: Plan: On propranolol -- holding for now due to NPO status/NG tube (15) DVT prophylaxis: Plan: SCDs History of Present Illness Chief Complaint: Nausea, Vomiting, Abdominal Pain, Low Ostomy Output Primary Care Provider: Sukh Holman MD 66 year old female with PMH DM type II, COPD, ongoing tobacco abuse, aortic valve sclerosis, anal squamous cell carcinoma s/p ileostomy, chemo, and radiation, GERD, essential tremor, and other problems listed below who presents to the ED for evaluation of nausea, vomiting, abdominal pain, and low ostomy output. Patient reports symptoms have been ongoing for the past 4 days. She reports coughing and then felt a ripping sensation around her stoma. She states she has had constant nausea and multiple episodes of vomiting. Minimal oral intake. Denies hematemesis and coffee ground emesis. States she has had minimal to no output from her ileostomy over the past 4 days. Denies bloody or dark tarry stool. Abdominal pain and distention has been mostly around her ostomy. Patient denies chest pain and shortness of breath. Had underlying COPD with chronic cough, unchanged from baseline. Denies lightheadedness, dizziness, diaphoresis, and syncopal events. No urinary symptoms. In the ED, CT abd/pelvis shows findings consistent with a small bowel obstruction. Near entirety of the small bowel moderately dilated and fluid filled with transition point within the ileostomy parastomal hernia which contains a few small bowel loops and trace ascites. Labs show Na+ 129, creat 1.4, Mg+ 1.5. Patient was given IVF, Mg+ replacement, IV dilaudid, IV reglan, IV zofran. General surgery was consulted who recommended transfer to [facility] under the care of patient's pervious surgeon who preformed ileostomy. Patient has been accepted however there are no beds available at this time. Allergies Allergy/AdvReac Type Severity Reaction Status Date / Time adhesive Allergy Mild SWELLING/RA Verified 06/03/21 14:09 Home Medications Medication Instructions Recorded Confirmed Type aspirin 81 mg tablet,delayed 81 mg PO QAM 02/26/19 03/02/22 History release atorvastatin 20 mg tablet 20 mg PO HS 02/26/19 03/02/22 History bupropion HCl 150 mg 24 hr tablet, 150 mg PO QAM 02/26/19 03/02/22 History extended release (Wellbutrin XL) fluticasone propionate 50 2 spray intranasal QAM PRN Allergy 02/26/19 03/02/22 History mcg/actuation nasal Symptoms spray,suspension gabapentin 600 mg tablet 600 mg PO TID 02/26/19 03/02/22 History metformin 1,000 mg tablet 1,000 mg PO BIDM 02/26/19 03/02/22 History pantoprazole 40 mg tablet,delayed 40 mg PO QAM 02/26/19 03/02/22 History release (Protonix) sertraline 50 mg tablet 50 mg PO HS 02/26/19 03/02/22 History tiotropium bromide 18 mcg capsule 1 cap inhalation QAM 02/26/19 03/02/22 History with inhalation device (Spiriva with HandiHaler) trazodone 50 mg tablet 50 mg PO HS 02/26/19 03/02/22 History albuterol sulfate 90 mcg/actuation 2 puff inhalation Q4H PRN 03/31/19 03/02/22 History aerosol inhaler Shortness Of Breath Or Wheezing hydromorphone 4 mg tablet 4 mg PO Q4H PRN pain 07/27/19 03/02/22 History (Dilaudid) cyclobenzaprine 10 mg tablet 10 mg PO TID Muscle Spasm 11/17/19 03/02/22 History ondansetron HCl 8 mg tablet 8 mg PO Q8H PRN Nausea 05/29/20 03/02/22 History prochlorperazine maleate 10 mg 10 mg PO Q6H PRN Constipation 05/29/20 03/02/22 History tablet (Compazine) fluticasone fur. 200 mcg-umeclid 1 inh inhalation DAILY 03/02/22 03/02/22 History 62.5 mcg-vilant 25 mcg inhalat.powder (Trelegy Ellipta) furosemide 20 mg tablet 20 mg PO DAILY PRN Edema 03/02/22 03/02/22 History meloxicam 15 mg tablet 15 mg PO DAILY 03/02/22 03/02/22 History morphine 30 mg tablet,extended 30 mg PO BID 03/02/22 03/02/22 History release propranolol 20 mg tablet 20 mg PO BID 03/02/22 03/02/22 History ropinirole 3 mg tablet 3 mg PO HS 03/02/22 03/02/22 History Past Med/Surg History Medical History (Updated 03/02/22 @ 12:53 by CEE Moss) Bleeding hemorrhoids Breast infection in female Hx of chronic left breast infections for 20 years Bursitis, scapulohumeral Chronic back pain Constipation COPD (chronic obstructive pulmonary disease) Degenerative disc disease Diabetic neuropathy Bilateral hands and feet DJD (degenerative joint disease) DM type 2 (diabetes mellitus, type 2) Essential tremor Fibromyalgia GERD (gastroesophageal reflux disease) Heart murmur Hip pain, chronic right History of hemorrhoids HLD (hyperlipidemia) Hyperlipemia Ileostomy present Insomnia Low back pain with right-sided sciatica multiple pain management injections with Dr. Archer Squamous cell carcinoma of anal canal Diagnosed 05/05/2019. Invasive, moderately differientiated, P-16 positive, Positive margin. s/p ileostomy, completed mitomycin x1 dose on 06/14/2019 and Xeloda along with radiation treatment between 06/09/2019-07/28/2019 Surgical History History of arthroplasty of left knee History of arthroscopy of right knee History of breast biopsy 1994, 2001 History of breast surgery nipple areola reconstruction, s/p multiple infections History of cholecystectomy 08/17/16 History of colonoscopy 2010, 2016 History of hemorrhoidectomy 02/17/19 History of hernia repair History of hysterectomy age 37 History of neck surgery excision of lipoma-08/23/17 History of rectal abscess with I &D 05/05/19 History of shoulder surgery right 2009, ;left-2012. S/P trigger finger release Status post trigger finger release Family History Grandmother (Maternal) , in 60's Lung cancer Brother No problems noted. Sister No problems noted. Daughter No problems noted. Son No problems noted. 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 Other Information That Helps Us Care for You: No Feels Safe at Home: Yes Safety Concerns: Feels Safe At This Time Childhood Exposure to Second-Hand Smoke: Yes caffeine: Yes (mountain dew daily 2 liters a day) Dental Care, Regularly: No Assistive Devices: None Review of Systems Review of Systems: ROS per HPI, all other systems reviewed and negative Physical Exam Constitutional: WD/WN, vitals as above Eyes: PERRL, conjunctivae normal, anicteric sclerae ENMT: Ears: no external ear abnormality Mouth: no oral mucosal abnormality +NG tube in place Respiratory: normal respiratory effort; no respiratory distress Auscultation: + diminished lung sounds and + wheezes (faint, scattered, end expiratory) Cardiovascular: Rate/Rhythm: regular rhythm and + tachycardic Vessels: normal peripheral pulses Extremities: + edema (trace edema BLE) Gastrointestinal (Abdomen): Inspection/Auscultation: + abdomen distended (more pronounced RLQ/around ostomy); + abnormal bowel sounds (hypoactive) Percussion/Palpation: + abdomen tender (around ostomy site ) and abdomen soft; no hepatosplenomegaly Musculoskeletal: no cyanosis or clubbing, extremities motor strength 5/5 Skin: no rashes, warm and dry Neurologic: PERRL, EOMI, accommodation nl, no face palsy, no dysarthria Psychiatric: A+Ox3, euthymic affect Results & Data Results & Data ([facility]) Vital Signs (Past 12 Hours) Vital Signs Temp Pulse Pulse Resp BP BP Pulse Ox 03/02/22 11:32 137 H 18 139/88 92 03/02/22 09:20 129 H 18 155/90 H 94 03/02/22 07:47 149 H 18 144/89 H 94 03/02/22 07:25 162 H 92 03/02/22 06:54 36.8 C 81 20 130/95 92 O2 Del Method O2 Flow Rate 03/02/22 11:32 Oxymask 4 03/02/22 09:20 Nasal Cannula 2 03/02/22 07:47 Nasal Cannula 2 03/02/22 07:25 Room Air 03/02/22 06:54 Room Air Laboratory Results Short CBC 03/02/22 Range/Units 07:27 WBC 11.28 H (4.8-10.8) K/ul Hgb 18.0 H (12.0-16.0) g/dl Hct 50.5 H (34.1-44.9) % Plt Count 347 (130-400) K/uL BMP 03/02/22 07:27 Sodium 129 L Potassium 4.3 Chloride 75 L Carbon Dioxide 33 H BUN 32 H Creatinine 1.42 H Glucose 229 H Calcium 10.9 H Liver Function 03/02/22 Range/Units 07:27 Total Bilirubin 1.4 H (0.2-1.0) mg/dl AST 19 (13-39) U/L ALT 32 (7-52) U/L Alkaline Phosphatase 65 (34-104) U/L Albumin 5.0 (3.4-5.0) gm/dl Diagnostic Findings Abdomen/Pelvis CT 03/02/22 07:08 CT OF THE ABDOMEN AND PELVIS WITH CONTRAST CLINICAL HISTORY: Pain around ileostomy, decreased output. COMPARISON STUDY: PET/CT March 28, 2020.. Pelvic MRI June 05, 2019. CT of the chest, abdomen and pelvis November 23, 2019. TECHNIQUE: Following IV administration of 93 mL of Optiray, axial images of the abdomen and pelvis were obtained from the lung bases to the proximal femurs. Images were reviewed in the axial, sagittal, and coronal planes. IV contrast was administered without complication. Automated exposure control was utilized for the study. A dose lowering technique was utilized adhering to the principles of ALARA. CT DOSE: 746.57 mGy.cm FINDINGS: Calcified granulomas within the lower lungs are noted. There is moderate circumferential wall thickening of the distal esophagus. There is no biliary ductal dilatation status post cholecystectomy. Liver, kidneys and pancreas are unremarkable. There is no hydronephrosis. Calcific granulomas within the spleen. Bilateral adrenal masses, left larger than right, are similar to earlier exams. These are likely benign given stability. No lymphadenopathy is present. The stomach is moderately distended and fluid-filled. Duodenum is significantly dilated and fluid-filled. A right lower quadrant diverting ileostomy is noted with parastomal hernia which contains a few small bowel loops and trace ascites. The near entirety of the small bowel is moderately dilated and fluid-filled. Transition point is within the parastomal hernia on axial image 221 of 436. This is just proximal to the ileostomy. The distal small bowel is decompressed. The diverted terminal ileum is decompressed as expected. Masslike thickening of the rectum/anus shown on prior MRI has markedly resolved. There is minimal residual soft tissue thickening. This could reflect posttreatment change. IMPRESSION: 1. Findings consistent with a small bowel obstruction. Near entirety of the small bowel moderately dilated and fluid filled with transition point within the ileostomy parastomal hernia which contains a few small bowel loops and trace ascites. Associated fluid-filled distended stomach. Circumferential distal esophageal wall thickening is nonspecific but may reflect esophagitis. 2. Bilateral adrenal nodules which are unchanged from earlier exams. These are likely benign. 3. Marked improvement in rectal/anal mass-like thickening since previous MRI. Residual mild thickening may reflect posttreatment change however can be assessed on subsequent exams. ACT 112: Negative or not required by law. Electronically signed by: Nishant Kern M.D. 03/02/2022 8:58 AM Chest X-Ray 03/02/22 07:26 SINGLE VIEW CHEST CLINICAL HISTORY: Vomiting. Abdominal distention. Tachycardia. FINDINGS: An AP, portable, upright chest radiograph is compared to study dated 06/14/2019. Correlation is made with chest CT dated 11/23/2019. The cardiomediastinal silhouette is top normal for projection noting atherosclerotic calcification of the thoracic aorta. Emphysema and chronic interstitial thickening is similar to previous. There are scattered calcified granulomas. There is bibasilar scarring/atelectasis. No airspace consolidation or large pleural effusion is identified. No pneumothorax is seen. The skeletal structures are osteopenic. The bony thorax is grossly intact. Arthritic change is seen in the shoulders. IMPRESSION: Emphysematous change with no acute cardiopulmonary abnormality. ACT 112: Negative or not required by law. Electronically signed by: Miguel Adair M.D. 03/02/2022 7:41 AM Chest X-Ray 03/02/22 10:43 XR chest 1V portable HISTORY: Evaluate NG tube placement. COMPARISON: Chest 03/02/2022. FINDINGS: The NG tube is curled within the distal esophagus with the tip terminating at the proximal esophagus. This should be removed/replaced. No pneumothorax. No pleural effusions. The heart is normal in size. Left basilar linear densities consistent with subsegmental atelectasis. IMPRESSION: The NG tube is curled within the distal esophagus with the tip terminating at the proximal esophagus. This should be removed/replaced. This report was called/faxed to the referring physician following dictation. ACT 112: Negative or not required by law. Electronically signed by: Rohan Sutton M.D. 03/02/2022 11:09 AM Chest X-Ray 03/02/22 11:43 XR chest 1V portable HISTORY: NG tube repositioning. COMPARISON: Chest 03/02/2022. FINDINGS: No change in the abnormal position of the nasogastric tube which is looped within the distal esophagus with the tip terminating near the proximal esophagus. This should be removed/reattempted. No pneumothorax. No pleural effusions. The heart is normal in size. Left basilar subsegmental atelectasis persists. IMPRESSION: No change in the abnormal position of the nasogastric tube which is looped within the distal esophagus with the tip terminating near the proximal esophagus. This should be removed/reattempted. ACT 112: Negative or not required by law. Electronically signed by: Rohan Sutton M.D. 03/02/2022 12:20 PM Code Status & VTE Plan Code Status Patient is a full code as per my discussion with her. VTE Prophylaxis Plan VTE Prophylaxis will be ordered: Yes Supervising Physician Co-Signing Physician Notes Care coordinated with CEE Moss . Agree with above note. Patient seen and examined. Please refer to her notes for full details. Vital signs reviewed. Physical exam: General exam: Alert and oriented. Not in acute distress. CVS: S1 and S2 heard, Tachycardia regular rate and rhythm, no murmurs. RS: Clear to auscultation, no wheezing or crackles. ABD: Soft, bowel sounds absent , mild diffuse tender, no distention. MEDICAL DOCTOR: Nonfocal. EXT: No edema, no erythema. Labs: Reviewed. Assessment and plan: 66F with PMH of Anal squamous cell cancer s/p chemoradiation, rectovaginal fistula s/p ileostomy comes with 4 days of abdominal pain and nausea and vomiting. Imaging studies shows SBO. Seen by surgery and recommended transfer to [place] where her colorectal surgeon is. [place] accepted in transfer and since n bed available got admitted to Tele. [facility] requiring oxymask 5lts. Still smoking. Nebs prn ordered. Resting comfortably. Denies any chest pain or sob or palpitations. s/p NG tube more than 5lts drained out and still draining. Persistent tachycardia. Lactic acid 3.3 repeat 3.0. Got 2lts fluid bolus after getting admitted and on maintenance fluids. S Ordered empiric zosyn. Says have not taken home meds for last two days. On propronolol 20mg bid. Ordered iv lopressor 2.5mg one dose as does not seem to be in obvious sepsis. Getting transferred to [facility]. Other diagnosis and plan of care as per []. Leandro lino MD.
--- NOTE | 2022-03-02 13:43 | XRay Report ---
XR chest 1V portable HISTORY: 66 years-old Female ng replacement status post placement of an enteric tube COMPARISON: Chest radiograph of same day at 12:12 PM TECHNIQUE: AP view of the chest FINDINGS: Reposition enteric tube, now with distal tip in the expected location of the gastric body. Cardiac me diastinal and hilar silhouettes are within normal limits. Atherosclerosis of the thoracic aorta. Mild subsegmental bibasilar atelectasis versus scarring. No pneumothorax, pleural effusion, airspace cons olidation or overt pulmonary edema. Degenerative changes of the shoulders and spine. IMPRESSION: Reposition enteric tube, now with the distal tip in the expected location of the gastric body. ACT 112: Negative or not required by law. The above report was generated using voice recognition software. It may contain grammatical, syntax o r spelling errors. Electronically signed by: Landon Shaw M.D. 03/02/2022 1:42 PM
[2022-03-02] MEDS ORDERED: NORMOSOL-R 1,000 ML IV SCH ×2 (13:45→14:13)
[2022-03-02] MEDS ORDERED: GLUCAGON FOR INJ 1 MG VIAL SQ PRN (14:13)
[2022-03-02] MEDS ORDERED: DEXTROSE 50% 50 ML SYRINGE IV PRN (14:13)
[2022-03-02] MEDS ORDERED: HYDROmorphone INJ 0.5 MG/0.5 ML SYR IV PRN (14:13)
[2022-03-02] MEDS ORDERED: CARBOHYDRATES FOR HYPOGLYCEMIA PO PRN (14:13)
[2022-03-02] MEDS ORDERED: ALBUT/IPRATROP 3MG/0.5MG NEB 3 ML VIAL NEB PRN (14:13)
[2022-03-02] MEDS ORDERED: PROMETHAZINE HCL 12.5 MG in SODIUM CHLORIDE 0.9% 50 ML IV PRN (14:13)
[2022-03-02] MEDS ORDERED: PANTOprazole 40 MG in SYRINGE 0 ML IV SCH (14:13)
[2022-03-02] MEDS ORDERED: GLUCOSE 10 TAB/TUBE PO PRN (14:13)
[2022-03-02] MEDS ORDERED: ONDANSETRON INJ 2 MG/ML 2 ML VIAL IV PRN (14:13)
[2022-03-02] MEDS ORDERED: GLUCOSE 40% GEL 15 GM TUBE PO PRN (14:13)
[2022-03-02] MEDS ORDERED: SODIUM CHLORIDE 0.9% 1000ML 1,000 ML IV SCH ×2 (15:00→17:45)
[2022-03-02] MEDS ORDERED: Nursing to Pharmacy Communication SCH (15:45)
[2022-03-02 16:10] VITALS: TEMP 98.2
[2022-03-02] MEDS ORDERED: INSULIN ASPART PER UNIT SC SCH ×2 (16:30→18:00)
[2022-03-02 17:11] LABS: BUN Creatinine Ratio 28.6 (10-20); Calcium 8.8 mg/dl (8.5-10.1); Creatinine Clr Calc Pharmacy 60.3 ml/min; Est GFR (African American) 76.2 ml/min; Est GFR (Non-African American) 65.7 ml/min; Potassium 3.5 mmol/L (3.5-5.1)
[2022-03-02] MEDS ORDERED: PIPERACILLIN/TAZOBACTAM 4.5 GM in DEXTROSE 5% 100 ML IV ONE (17:53)
[2022-03-02 18:54] LABS: Base Excess ABG 20.4 mEq/L (-9-1.8); HCO3 ABG 46 mmol/L (19-24); Oxygen Saturation ABG 89.9 % (90-95); PCO2 ABG 51 mmHg (35-46); PO2 ABG 56 mmHg (80-95)
[2022-03-02 18:56] LABS: Allen Test Pos (Pos)
[2022-03-02 18:57] LABS: pH ABG 7.56 (7.35-7.45)
--- NOTE | 2022-03-02 18:57 | Discharge Summary ---
Date of Service March 02, 2022 Admission HPI Per Admitting Provider 66 year old female with PMH DM type II, COPD, ongoing tobacco abuse, aortic valve sclerosis, anal squamous cell carcinoma s/p ileostomy, chemo, and radiation, GERD, essential tremor, and other problems listed below who presents to the ED for evaluation of nausea, vomiting, abdominal pain, and low ostomy output. Patient reports symptoms have been ongoing for the past 4 days. She reports coughing and then felt a ripping sensation around her stoma. She states she has had constant nausea and multiple episodes of vomiting. Minimal oral intake. Denies hematemesis and coffee ground emesis. States she has had minimal to no output from her ileostomy over the past 4 days. Denies bloody or dark tarry stool. Abdominal pain and distention has been mostly around her ostomy. Patient denies chest pain and shortness of breath. Had underlying COPD with chronic cough, unchanged from baseline. Denies lightheadedness, dizziness, diaphoresis, and syncopal events. No urinary symptoms. In the ED, CT abd/pelvis shows findings consistent with a small bowel obstruction. Near entirety of the small bowel moderately dilated and fluid filled with transition point within the ileostomy parastomal hernia which contains a few small bowel loops and trace ascites. Labs show Na+ 129, creat 1.4, Mg+ 1.5. Patient was given IVF, Mg+ replacement, IV dilaudid, IV reglan, IV zofran. General surgery was consulted who recommended transfer to [facility] under the care of patient's pervious surgeon who preformed ileostomy. Patient has been accepted however there are no beds available at this time. Admission Exam (Per Admitting) Constitutional Constitutional: WD/WN, vitals as above Eyes: PERRL, conjunctivae normal, anicteric sclerae ENMT: Ears: no external ear abnormality Mouth: no oral mucosal abnormality +NG tube in place Respiratory: normal respiratory effort; no respiratory distress Auscultation: + diminished lung sounds and + wheezes (faint, scattered, end expiratory) Cardiovascular: Rate/Rhythm: regular rhythm and + tachycardic Vessels: normal peripheral pulses Extremities: + edema (trace edema BLE) Gastrointestinal (Abdomen): Inspection/Auscultation: + abdomen distended (more pronounced RLQ/around ostomy); + abnormal bowel sounds (hypoactive) Percussion/Palpation: + abdomen tender (around ostomy site ) and abdomen soft; no hepatosplenomegaly Musculoskeletal: no cyanosis or clubbing, extremities motor strength 5/5 Skin: no rashes, warm and dry Neurologic: PERRL, EOMI, accommodation nl, no face palsy, no dysarthria Psychiatric: A+Ox3, euthymic affect Discharge Data Consultations 03/02/22 11:08 ED Decision to Admit Stat 03/02/22 14:13 Consult General Surgery Routine Hospital Course (1) SBO (small bowel obstruction): Getting transferred to [place]. Persistent tachycardia 130-140's Improving with fluid bolus. Lactic acid 3.3 repeat 3.0. Empiric zosyn. BP ok. At home on atenolol. Will give a small dose of iv lopressor. Close monitor. A/p On Admission : 1) SBO (small bowel obstruction): (2) Parastomal hernia with obstruction and without gangrene: (3) Ileostomy present: (4) Primary squamous cell carcinoma of anal canal: Plan: Admit to tele Patient presenting from home with reports of nausea, vomiting, abdominal pain, low ostomy output. Hx anal squamous cell carcinoma s/p ileostomy, chemo, and radiation In the ED, CT abd/pelvis shows findings consistent with a small bowel obstruction. Near entirety of the small bowel moderately dilated and fluid filled with transition point within the ileostomy parastomal hernia which contains a few small bowel loops and trace ascites. Lactate 3.3, WBC 11K Evaluated by general surgery in the ED - recommending transfer to [facility] under the care of patient's previous colorectal surgeon, Dr. Faith. Patient accepted however no beds available at this time. NGT placed Serial lactates IVF, pain control (5) Hypoxia: Plan: Intermittent hypoxia noted in the high 80s while on room air Some wheezing on exam as well Hx of COPD with ongoing tobacco use CXR unremarkable PRN nebs, continue O2 supplement, wean as able. Consider home O2 eval before discharge. (6) JOSEPHINE (acute kidney injury): Plan: Creat 1.4, baseline ~ 0.8 Likely prerenal in nature due to GI loss from vomiting IVF, follow renal functions (7) Tachycardia: Plan: Presenting HR in the 150s, likely due to dehydration/hypovolemia Improving with IVF Also on propranolol for essential tremor and patient has been unable to tolerate PO meds due to N/V -- resume as able (8) Hypomagnesemia: (9) Hyponatremia: Plan: Na+129, Mg+ 1.5 Likely due to vomiting Monitor BMP/electrolytes (10) DM type 2 (diabetes mellitus, type 2): Plan: Hgb a1c 6.2 08/2021 Hold oral agents and utilize Novolog per protocol while hospitalized (11) COPD (chronic obstructive pulmonary disease): Plan: w/ ongoing tobacco use intermittent hypoxia and minimal wheezing on exam continue home inhalers, prn nebs, wean O2 as able (12) Fibromyalgia: (13) Chronic back pain: Plan: Typically managed with PO morphine, PO Dilaudid, and Wellbutrin -- holding for now due to NPO status/NG tube (14) Essential tremor: Plan: On propranolol -- holding for now due to NPO status/NG tube (15) DVT prophylaxis: Plan: SCDs (2) Primary squamous cell carcinoma of anal canal: (3) Ileostomy present: (4) Tachycardia: (5) JOSEPHINE (acute kidney injury): (6) Hyponatremia:
[2022-03-02] MEDS ORDERED: METOPROLOL TARTRATE 1 MG/ML VIAL IV STA (18:59)
[2022-03-02 20:49] VITALS: BP 129/65; PULSE 104; O2SAT 99
[2022-03-03] MEDS ORDERED: PIPERACILLIN/TAZOBACTAM 3.375 GM in DEXTROSE 5% 100 ML IV SCH
[2022-03-03] MEDS ORDERED: UMECLIDINIUM BROMIDE 62.5MCG/BLISTER 7 PUFFS/INHALER INH SCH (09:00)
[2022-03-03] MEDS ORDERED: UMECLIDINIUM/VILANTEROL 62.5/25MCG 7 PUFFS/INHALER INH SCH (09:00)
[2022-03-03] MEDS ORDERED: FLUTICASONE FUROATE 200MCG 14 PUFFS/INHALER INH SCH (09:00)
--- NOTE | 2022-03-04 06:28 | Electrocardiogram Report ---
Test Reason : Blood Pressure : / mmHG Vent. Rate : 154 BPM Atrial Rate : 154 BPM P-R Int : 138 ms QRS Dur : 068 ms QT Int : 252 ms P-R-T Axes : 063 078 067 degrees QTc Int : 403 ms Sinus tachycardia Otherwise normal ECG When compared with ECG of 26-FEB-2019 14:12, Vent. rate has increased BY 60 BPM Confirmed by Erlin Lees ([id number]) on 03/04/2022 6:27:57 AM Referred By: REFERRED SELF Confirmed By:Erlin Lees
== END 2022-03-02 20:41 | disposition short-term general hospital (02) | DRG 394 ==
LOC: ED 06:52 → 2S 11:44

== ENCOUNTER 2022-03-26 10:06 | Inpatient (IN) ==
[2022-03-26] MEDS ORDERED: SODIUM CHLORIDE 0.9% 500 ML IV SCH (10:30)
--- NOTE | 2022-03-26 10:32 | Emergency Department Note ---
Impression & Plan Acute hyponatremia, Hypomagnesemia ED Provider Note NAME: JOHNATHAN MISHRA AGE: 66 SEX: F : 1955 ARRIVES VIA: Walk-In INFORMANT: Patient, ED PROVIDER(S): Marquise Franco DO CHIEF COMPLAINT: Weakness HPI: The patient is a 66-year-old female who presented to the emergency department for an evaluation of generalized weakness. The patient was recently discharged from [facility]. She has a history of an ostomy. She had a peristomal hernia which was repaired in [place]. At that time she was also found to have altered mental status and respiratory issues. She was diagnosed with COVID-19. The patient had a follow-up appoint with her primary care physician. She had laboratory studies drawn yesterday. She was called today and told to come the emergency department because her sodium was very low. The patient denies having any vomiting. She denies having any diarrhea. She denies having any dysuria or frequency. The patient has not had any further altered mental status. The patient has been started on oxygen ever since her discharge from [facility]. She used to use tobacco products but she no longer uses tobacco products. She has had hyponatremia in the past. ROS: See above HPI for pertinent positives & negatives. A total of 10 systems reviewed and were otherwise negative. PAST MEDICAL HISTORY: See Below PAST SURGICAL HISTORY: See Below FAMILY HISTORY: See Below SOCIAL HISTORY: See Below HOME MEDICATIONS: See Below ALLERGIES: See Below VITALS: See Below PHYSICAL EXAMINATION: GENERAL: Patient is awake alert in no acute distress patient is resting c omfortably and showing no signs of anxiety EYES: The conjunctivae are clear. The pupils are round and reactive. EARS, NOSE, MOUTH AND THROAT: The nose is without any evidence of any deformity. Mucous membranes are moist. Tongue is midline. NECK: The neck is nontender and supple. RESPIRATORY: Diminished breath sounds noted throughout with rhonchi throughout. There is no tachypnea or conversational dyspnea. L S2. GASTROINTESTINAL: The abdomen was soft and mildly distended. There is tenderne ss over the ostomy but no guarding or rigidity. MUSCULOSKELETAL/EXTREMITIES: There is no evidence of gross deformity full range of motion is noted in the hips and shoulders. SKIN: There is no obvious evidence of any rash. There are no petechiae, pallor or cyanosis noted. NEUROLOGIC: Patient is awake alert and oriented x3. Gait was steady. MEDICAL DECISION MAKING: The patient is a 66-year-old female who presented to the emergency department for an evaluation of abnormal labs. The patient had abnormal labs done as an outpatient yesterday by her primary care physician. The patient was sent to the emergency department for further evaluation. The patient was found to have hyponatremia. She has had hyponatremia in the past but this is significantly lower than she has had recently. The patient was also found of hypomagnesemia. She was treated with IV fluids as well as IV magnesium. I discussed the patient's laboratory and radiographic studies with her. The [facility] group was notified about the patient. Triage Nursing notes reviewed. Prior medical records reviewed Vital Signs: reviewed and remarkable for hyponatremia. Differential diagnosis: Infection, dehydration, metabolic abnormality, hypo/hyperglycemia, electrolyte disturbance, anemia, hypoxia, cardiac sources, intracerebral event, toxicologic, neurologic, as well as other pathologies. ER treatment provided: See below Diagnostics interpreted by me: ECG: EKG was obtained in the emergency department. My interpretation is normal sinus rhythm at 76 bpm. There is no ectopy. There is no acute ST segment abnormalities noted. This was compared to a tracing from March 02, 2022. No changes were noted. Cardiac Monitoring: An order was placed for continuous cardiac monitoring. The monitor shows a rate of 82 bpm with sinus rhythm. Laboratory studies: As stated above and show below. Imaging studies: See below Consultation(s): I discussed this case with Dr. Marquez who is on-call for the [facility]. Past Med/Surg History Medical History Bleeding hemorrhoids Breast infection in female Hx of chronic left breast infections for 20 years Bursitis, scapulohumeral Chronic back pain Constipation COPD (chronic obstructive pulmonary disease) Degenerative disc disease Diabetic neuropathy Bilateral hands and feet DJD (degenerative joint disease) DM type 2 (diabetes mellitus, type 2) Essential tremor Fibromyalgia GERD (gastroesophageal reflux disease) Heart murmur Hip pain, chronic right History of hemorrhoids HLD (hyperlipidemia) Hyperlipemia Ileostomy present Insomnia Low back pain with right-sided sciatica multiple pain management injections with Dr. Archer Squamous cell carcinoma of anal canal Diagnosed 05/05/2019. Invasive, moderately differientiated, P-16 positive, Positive margin. s/p ileostomy, completed mitomycin x1 dose on 06/14/2019 and Xeloda along with radiation treatment between 06/09/2019-07/28/2019 Surgical History History of arthroplasty of left knee History of arthroscopy of right knee History of breast biopsy 1994, 2001 History of breast surgery nipple areola reconstruction, s/p multiple infections History of cholecystectomy 08/17/16 History of colonoscopy 2010, 2016 History of hemorrhoidectomy 02/17/19 History of hernia repair History of hysterectomy age 37 History of neck surgery excision of lipoma-08/23/17 History of rectal abscess with I &D 05/05/19 History of shoulder surgery right 2009, ;left-2012. S/P trigger finger release Status post trigger finger release Family History Grandmother (Maternal) , in 60's Lung cancer Brother No problems noted. Sister No problems noted. Daughter No problems noted. Son No problems noted. 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 [place] Feel Safe at Home: Yes Childhood Exposure to Second-Hand Smoke: Yes caffeine: Yes (mountain dew daily 2 liters a day) Dental Care, Regularly: No Assistive Devices: None Allergies Allergies Allergy/AdvReac Type Severity Reaction Status Date / Time adhesive Allergy Mild SWELLING/RA Verified 06/03/21 14:09 Home Meds Home Medications Medication Instructions Recorded Confirmed aspirin 81 mg tablet,delayed 81 mg PO QAM 02/26/19 03/02/22 release atorvastatin 20 mg tablet 20 mg PO HS 02/26/19 03/02/22 bupropion HCl 150 mg 24 hr tablet, 150 mg PO QAM 02/26/19 03/02/22 extended release (Wellbutrin XL) fluticasone propionate 50 2 spray intranasal QAM PRN Allergy 02/26/19 03/02/22 mcg/actuation nasal Symptoms spray,suspension gabapentin 600 mg tablet 600 mg PO TID 02/26/19 03/02/22 metformin 1,000 mg tablet 1,000 mg PO BIDM 02/26/19 03/02/22 pantoprazole 40 mg tablet,delayed 40 mg PO QAM 02/26/19 03/02/22 release (Protonix) sertraline 50 mg tablet 50 mg PO HS 02/26/19 03/02/22 tiotropium bromide 18 mcg capsule 1 cap inhalation QAM 02/26/19 03/02/22 with inhalation device (Spiriva with HandiHaler) trazodone 50 mg tablet 50 mg PO HS 02/26/19 03/02/22 albuterol sulfate 90 mcg/actuation 2 puff inhalation Q4H PRN 03/31/19 03/02/22 aerosol inhaler Shortness Of Breath Or Wheezing hydromorphone 4 mg tablet 4 mg PO Q4H PRN pain 07/27/19 03/02/22 (Dilaudid) cyclobenzaprine 10 mg tablet 10 mg PO TID Muscle Spasm 11/17/19 03/02/22 ondansetron HCl 8 mg tablet 8 mg PO Q8H PRN Nausea 05/29/20 03/02/22 prochlorperazine maleate 10 mg 10 mg PO Q6H PRN Constipation 05/29/20 03/02/22 tablet (Compazine) fluticasone fur. 200 mcg-umeclid 1 inh inhalation DAILY 03/02/22 03/02/22 62.5 mcg-vilant 25 mcg inhalat.powder (Trelegy Ellipta) furosemide 20 mg tablet 20 mg PO DAILY PRN Edema 03/02/22 03/02/22 meloxicam 15 mg tablet 15 mg PO DAILY 03/02/22 03/02/22 morphine 30 mg tablet,extended 30 mg PO BID 03/02/22 03/02/22 release propranolol 20 mg tablet 20 mg PO BID 03/02/22 03/02/22 ropinirole 3 mg tablet 3 mg PO HS 03/02/22 03/02/22 Results & Data (ED) Vital Signs Vital Signs - 24 hr 03/26/22 10:09 03/26/22 10:41 03/26/22 10:41 Temperature 36.5 C Temperature Source Temporal Artery Scan Pulse Rate 86 Pulse Rate [Apical] 82 Pulse Rhythm Regular Pulse Strength Normal Respiratory Rate 18 18 Respiratory Effort / Characteristics Non-Labored Spontaneous Non-Labored Spontaneous Respiratory Depth Normal Normal Respiratory Pattern Regular Blood Pressure 105/58 L Blood Pressure [Left Arm] 99/59 L Blood Pressure Mean 73 Blood Pressure Mean [Left Arm] 72 Blood Pressure Position Sitting Pulse Oximetry 99 96 96 Oxygen Delivery Method Nasal Cannula Nasal Cannula Nasal Cannula Oxygen Flow Rate 2 2 2 Sepsis Recent Fever Within 48 Hours No Sepsis New/Unexplained Change in Mental Status No Sepsis Action Taken by Nursing No Action Required 03/26/22 11:42 Temperature Temperature Source Pulse Rate Pulse Rate [Apical] 79 Pulse Rhythm Pulse Strength Respiratory Rate 16 Respiratory Effort / Characteristics Non-Labored Respiratory Depth Normal Respiratory Pattern Blood Pressure Blood Pressure [Left Arm] 107/68 Blood Pressure Mean Blood Pressure Mean [Left Arm] 81 Blood Pressure Position Pulse Oximetry 97 Oxygen Delivery Method Room Air Oxygen Flow Rate Sepsis Recent Fever Within 48 Hours Sepsis New/Unexplained Change in Mental Status Sepsis Action Taken by Prison Medications Current Medication List: was personally reviewed by me Laboratory Data Attestation: I reviewed the patient's lab results. Result diagrams: 03/26/22 10:23 03/26/22 10:23 Lab Results 03/26/22 03/26/22 03/26/22 Range/Units 10:23 10:23 10:23 WBC 7.47 (4.8-10.8) K/ul RBC 4.03 (3.93-5.22) M/uL Hgb 12.1 (12.0-16.0) g/dl Hct 33.7 L (34.1-44.9) % MCV 83.6 (80.0-100.0) fL MCH 30.0 (25.0-34.0) pg MCHC 35.9 (32.0-36.0) g/dL RDW Std Deviation 40.3 (36.4-46.3) fL RDW Coeff of Chelle 13.2 (11.5-14.5) % Plt Count 230 (130-400) K/uL MPV 8.6 L (9.4-12.3) fL Immature Gran % (Auto) 1.3 % Neut % (Auto) 77.7 % Lymph % (Auto) 9.1 % [place] % (Auto) 9.5 % Eos % (Auto) 1.9 % Baso % (Auto) 0.5 % Neut # (Auto) 5.80 (1.4-6.5) K/uL Lymph # (Auto) 0.68 L (1.2-3.4) K/uL [place] # (Auto) 0.71 (0.24-0.82) K/uL Eos # (Auto) 0.14 (0-0.50) K/uL Baso # (Auto) 0.04 (0-0.2) K/uL Immature Gran # (Auto) 0.10 H (0.00-0.02) K/uL Sodium 122 L (136-145) mmol/L Potassium 3.5 (3.5-5.1) mmol/L Chloride 81 L (98-107) mmol/L Carbon Dioxide 32 (21-32) mmol/L Anion Gap 9 (3-11) BUN 13 (6-23) mg/dl Creatinine 0.83 (0.6-1.2) mg/dl Est Cr Clr Drug Dosing 65.3 ml/min Est GFR ( Amer) 85.2 ml/min Est GFR (Non-Af Amer) 73.5 ml/min BUN/Creatinine Ratio 15.7 (10-20) Glucose 136 H (70-99(Fasting)) mg/dl Osmolality 251 L (280-300) mOsm/kg Calcium 8.3 L (8.5-10.1) mg/dl Magnesium 0.9 L* (1.7-2.4) mg/dl Total Bilirubin 0.5 (0.2-1.0) mg/dl AST 9 L (13-39) U/L ALT 8 (7-52) U/L Alkaline Phosphatase 55 (34-104) U/L Troponin I High Sens 4.0 (0-14) pg/ml Total Protein 6.6 (6.0-8.3) gm/dl Albumin 3.8 (3.4-5.0) gm/dl Globulin 2.8 (2.5-4.0) gm/dl Albumin/Globulin Ratio 1.4 (0.9-2) TSH (0.300-4.500) uIu/ml SARS-CoV-2, RNA, NAAT (NEGATIVE) 03/26/22 03/26/22 Range/Units 10:23 10:29 WBC (4.8-10.8) K/ul RBC (3.93-5.22) M/uL Hgb (12.0-16.0) g/dl Hct (34.1-44.9) % MCV (80.0-100.0) fL MCH (25.0-34.0) pg MCHC (32.0-36.0) g/dL RDW Std Deviation (36.4-46.3) fL RDW Coeff of Chelle (11.5-14.5) % Plt Count (130-400) K/uL MPV (9.4-12.3) fL Immature Gran % (Auto) % Neut % (Auto) % Lymph % (Auto) % [place] % (Auto) % Eos % (Auto) % Baso % (Auto) % Neut # (Auto) (1.4-6.5) K/uL Lymph # (Auto) (1.2-3.4) K/uL [place] # (Auto) (0.24-0.82) K/uL Eos # (Auto) (0-0.50) K/uL Baso # (Auto) (0-0.2) K/uL Immature Gran # (Auto) (0.00-0.02) K/uL Sodium (136-145) mmol/L Potassium (3.5-5.1) mmol/L Chloride (98-107) mmol/L Carbon Dioxide (21-32) mmol/L Anion Gap (3-11) BUN (6-23) mg/dl Creatinine (0.6-1.2) mg/dl Est Cr Clr Drug Dosing ml/min Est GFR ( Amer) ml/min Est GFR (Non-Af Amer) ml/min BUN/Creatinine Ratio (10-20) Glucose (70-99(Fasting)) mg/dl Osmolality (280-300) mOsm/kg Calcium (8.5-10.1) mg/dl Magnesium (1.7-2.4) mg/dl Total Bilirubin (0.2-1.0) mg/dl AST (13-39) U/L ALT (7-52) U/L Alkaline Phosphatase (34-104) U/L Troponin I High Sens (0-14) pg/ml Total Protein (6.0-8.3) gm/dl Albumin (3.4-5.0) gm/dl Globulin (2.5-4.0) gm/dl Albumin/Globulin Ratio (0.9-2) TSH 2.416 (0.300-4.500) uIu/ml SARS-CoV-2, RNA, NAAT NEGATIVE (NEGATIVE) Administered Medications Magnesium Sulfate/Dextrose (Magnesium Sulfate / D5w) 1 gm in 100 mls @ 100 mls/hr IV Q1H HANNAH Stop: 03/26/22 13:24 Last Admin: 03/26/22 11:29 Dose: 100 mls/hr Documented By: KELLY Discontinued Medications Sodium Chloride (Nss) 500 mls @ 999 mls/hr IV .Q31M HANNAH Stop: 03/26/22 11:00 Last Infusion: 03/26/22 10:58 Dose: 0 mls/hr Documented By: Admin: 03/26/22 10:27 Dose: 999 mls/hr Documented By: KELLY Sodium Chloride (Nss) 500 mls @ 999 mls/hr IV .Q31M ONE Stop: 03/26/22 11:55 Last Admin: 03/26/22 11:29 Dose: 999 mls/hr Documented By: KELLY Imaging Data Radiologist's Impression: Chest X-Ray 03/26/22 10:18 SINGLE VIEW CHEST CLINICAL HISTORY: Cough FINDINGS: An AP, portable, upright chest radiograph is compared to study dated 03/02/2022. Correlation is made with chest CT dated 11/23/2019. The heart is top normal in size noting atherosclerotic calcification of the thoracic aorta. Mild emphysema and chronic interstitial thickening similar to previous. There are scattered calcified granulomas. There is left basilar consolidation. No pneumothorax is seen. The skeletal structures are osteopenic. There is chronic d eformity of the right proximal humerus. Arthritic change is noted in the shoulders. IMPRESSION: 1. Emphysema. 2. There is airspace consolidation at the left lung base. The majority of this is linear in appearance and likely represents platelike atelectasis. Correlate clinically for evidence of superimposed pneumonia/aspiration pneumonitis. Radiographic follow-up to resolution is recommended. ACT 112: Negative or not required by law. Electronically signed by: Miguel Adair M.D. 03/26/2022 10:41 AM Discharge Plan Visit Data Chief Complaint: Referred by Doctor Stated Complaint: LOW SODIUM LEVELS ED Provider: Marquise Franco Discharge Problem: Acute hyponatremia, Hypomagnesemia Patient Disposition: Being Evaluated by Hospitalist Forms Stand Alone Forms: My [facility] Prescriptions Prescriptions: No Action hydromorphone [Dilaudid] 4 mg tablet 4 mg PO Q4H PRN (Reason: pain) prochlorperazine maleate [Compazine] 10 mg tablet 10 mg PO Q6H PRN (Reason: Constipation) ondansetron HCl 8 mg tablet 8 mg PO Q8H PRN (Reason: Nausea) albuterol sulfate 90 mcg/actuation HFA aerosol inhaler 2 puff inhalation Q4H PRN (Reason: Shortness Of Breath Or Wheezing) gabapentin 600 mg tablet 600 mg PO TID trazodone 50 mg tablet 50 mg PO HS pantoprazole [Protonix] 40 mg tablet,delayed release (DR/EC) 40 mg PO QAM metformin 1,000 mg tablet 1,000 mg PO BIDM fluticasone propionate 50 mcg/actuation spray,suspension 2 spray INTRANASAL QAM PRN (Reason: Allergy Symptoms) Spiriva with HandiHaler 18 mcg capsule, w/inhalation device 1 cap INHALATION QAM atorvastatin 20 mg Tablet 20 mg PO HS aspirin 81 mg Tablet,Delayed Release (Dr/Ec) 81 mg PO QAM sertraline 50 mg Tablet 50 mg PO HS bupropion HCl [Wellbutrin XL] 150 mg Tablet Extended Release 24 Hr 150 mg PO QAM cyclobenzaprine 10 mg tablet 10 mg PO TID Trelegy Ellipta 200-62.5-25 mcg blister with device 1 inh INHALATION DAILY meloxicam 15 mg tablet 15 mg PO DAILY ropinirole 3 mg tablet 3 mg PO HS morphine 30 mg tablet extended release 30 mg PO BID furosemide 20 mg tablet 20 mg PO DAILY PRN (Reason: Edema) propranolol 20 mg tablet 20 mg PO BID Referrals Referrals: Sukh Holman MD [Primary Care Provider] -
[2022-03-26 10:39] LABS: Basophils # (auto) 0.04 K/uL (0-0.2); Basophils % (auto) 0.5 %; Eosinophils # (auto) 0.14 K/uL (0-0.50); Eosinophils % (auto) 1.9 %; Hematocrit (blood only) 33.7 % (34.1-44.9); Hemoglobin 12.1 g/dl (12.0-16.0); Immature Granulocytes % (auto) 1.3 %; Lymphocytes # (auto) 0.68 K/uL (1.2-3.4); Lymphocytes % (auto) 9.1 %; Mean Corpuscular Hgb Conc 35.9 g/dL (32.0-36.0); Mean Corpuscular Volume 83.6 fL (80.0-100.0); Mean Platelet Volume 8.6 fL (9.4-12.3); Monocytes # (auto) 0.71 K/uL (0.24-0.82); Monocytes % (auto) 9.5 %; Neutrophils % (auto) 77.7 %; Platelet Count 230 K/uL (130-400); RDW Coefficient of Variation 13.2 % (11.5-14.5); RDW Standard Deviation 40.3 fL (36.4-46.3); Red Blood Count 4.03 M/uL (3.93-5.22); White Blood Count 7.47 K/ul (4.8-10.8)
--- NOTE | 2022-03-26 10:43 | XRay Report ---
SINGLE VIEW CHEST CLINICAL HISTORY: Cough FINDINGS: An AP, portable, upright chest radiograph is compared to study dated 03/02/2022. Correlatio n is made with chest CT dated 11/23/2019. The heart is top normal in size noting atherosclerotic calci fication of the thoracic aorta. Mild emphysema and chronic interstitial thickening similar to previou s. There are scattered calcified granulomas. There is left basilar consolidation. No pneumothorax is seen. The skeletal structures are osteopenic. There is chronic deformity of the right proximal humeru s. Arthritic change is noted in the shoulders. IMPRESSION: 1. Emphysema. 2. There is airspace consolidation at the left lung base. The majority of this is linear in appearanc e and likely represents platelike atelectasis. Correlate clinically for evidence of superimposed pneu monia/aspiration pneumonitis. Radiographic follow-up to resolution is recommended. ACT 112: Negative or not required by law. Electronically signed by: Miguel Adair M.D. 03/26/2022 10:41 AM
[2022-03-26 11:05] LABS: BUN Creatinine Ratio 15.7 (10-20); Calcium 8.3 mg/dl (8.5-10.1); Creatinine Clr Calc Pharmacy 65.3 ml/min; Est GFR (African American) 85.2 ml/min; Est GFR (Non-African American) 73.5 ml/min; Potassium 3.5 mmol/L (3.5-5.1)
[2022-03-26 11:18] LABS: Albumin Globulin Ratio 1.4 (0.9-2); Albumin Level 3.8 gm/dl (3.4-5.0); Bilirubin,Total 0.5 mg/dl (0.2-1.0); Globulin 2.8 gm/dl (2.5-4.0); Magnesium 0.9 mg/dl (1.7-2.4); Total Protein 6.6 gm/dl (6.0-8.3)
[2022-03-26] MEDS ORDERED: SODIUM CHLORIDE 0.9% 500 ML IV ONE (11:25)
[2022-03-26] MEDS: MAGNESIUM SULFATE / D5W 1 GM/100 ML BAG IV SCH ×4 (11:29→20:10)
--- NOTE | 2022-03-26 12:27 | History & Physical Report ---
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 Acute hyponatremia Hypotonic euvolemic hyponatremia Initial Na of 122, given 1,000ml NSS in ED Serum osm, urine osm and urine Na all low, indicating primary polydipsia Restrict fluid to 1.8 L, repeat BMP in 6 hrs Goal rate of sodium correction is6 to 8 mEq/Jenna 24 hours (no more than 128-130 by tomorrow AM) Hypomagnesemia Initial Mag 0.9. Giving 4 gms total, repeat lab 1800 and in AM Generalized weakness Following extending admission for covid PNA requiring intubation, still on 2L NC O2 PT/OT evaluation Likely to benefit from a walker History of anal squamous cell carcinoma s/p ileostomy, chemo, and radiation H/o surgical resection now with ileostomy, follows with colorectal surgeon Dr. Faith in [facility] Hypoxia 2/2 recent covid PNA At new baseline O2 requirement saturating at 96% on 2L NC CXR with emphysema. There is airspace consolidation at the left lung base. The majority of this is linear in appearance and likely represents platelike atelectasis Does not appear clinically like PNA, euvolemic. 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 Continue PO Morphine 30mg BID (recently decreased) and PO dilaudid for severe breathrough pain Essential tremor Continue propranolol DVT Ppx: SQ lovenox Code status: FULL PCP: Manda Dispo: Admitted to [facility] Patient seen in collaboration with Dr. Marquez. Please see addendum. 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 Was seen yesterday in hospital follow-up for late February admission to [facility] and then transferred to [place] for management of her parastomal hernia, where she developed COVID-pneumonia and was intubated in the ICU. Responded well to treatment and was discharged home on 2 L nasal cannula oxygen. Was seen in the office yesterday and was desaturating to the mid 70s without oxygen but maintaining upper 90% with oxygen. Last smoked 1 month prior. BMP revealed sodium of 121 patient was directed to come to ED for further evaluation. Since discharge from [place], patient has been feeling well. No increased SOB but still using supplemental oxygen. Still with residual loose cough. No fever, chills, lightheadedness, confusion, chest pain, palpitations, N/V, abdominal pain or dysuria. Ostomy output has been stable since discharge. States her appetite has increased in the past week. Drinking approximately 120 fluid oz a day per her estimation. Has felt deconditioned since discharge home. Quit smoking 1 month ago. Allergies Allergy/AdvReac Type Severity Reaction Status Date / Time adhesive Allergy Mild SWELLING/RA Verified 06/03/21 14:09 Home Medications Medication Instructions Recorded Confirmed Type aspirin 81 mg tablet,delayed 81 mg PO QAM 02/26/19 03/26/22 History release atorvastatin 20 mg tablet 20 mg PO HS 02/26/19 03/26/22 History bupropion HCl 150 mg 24 hr tablet, 150 mg PO QAM 02/26/19 03/26/22 History extended release (Wellbutrin XL) fluticasone propionate 50 2 spray intranasal QAM PRN Allergy 02/26/19 03/26/22 History mcg/actuation nasal Symptoms spray,suspension gabapentin 600 mg tablet 600 mg PO TID 02/26/19 03/26/22 History metformin 1,000 mg tablet 1,000 mg PO BIDM 02/26/19 03/26/22 History pantoprazole 40 mg tablet,delayed 40 mg PO QAM 02/26/19 03/26/22 History release (Protonix) sertraline 50 mg tablet 50 mg PO HS 02/26/19 03/26/22 History trazodone 50 mg tablet 50 mg PO HS 02/26/19 03/26/22 History albuterol sulfate 90 mcg/actuation 2 puff inhalation Q4H PRN 03/31/19 03/26/22 History aerosol inhaler Shortness Of Breath Or Wheezing hydromorphone 4 mg tablet 4 mg PO Q4H PRN pain 07/27/19 03/26/22 History (Dilaudid) cyclobenzaprine 10 mg tablet 10 mg PO TID Muscle Spasm 11/17/19 03/26/22 History ondansetron HCl 8 mg tablet 8 mg PO Q8H PRN Nausea 05/29/20 03/26/22 History prochlorperazine maleate 10 mg 10 mg PO Q6H PRN Constipation 05/29/20 03/26/22 History tablet (Compazine) fluticasone fur. 200 mcg-umeclid 1 inh inhalation DAILY 03/02/22 03/26/22 History 62.5 mcg-vilant 25 mcg inhalat.powder (Trelegy Ellipta) meloxicam 15 mg tablet 15 mg PO DAILY 03/02/22 03/26/22 History morphine 30 mg tablet,extended 30 mg PO BID 03/02/22 03/26/22 History release propranolol 20 mg tablet 20 mg PO BID 03/02/22 03/26/22 History ropinirole 3 mg tablet 3 mg PO HS 03/02/22 03/26/22 History furosemide 40 mg tablet 40 mg PO DAILY PRN Edema 03/26/22 03/26/22 History Past Med/Surg History Medical History Bleeding hemorrhoids Breast infection in female Hx of chronic left breast infections for 20 years Bursitis, scapulohumeral Chronic back pain Constipation COPD (chronic obstructive pulmonary disease) Degenerative disc disease Diabetic neuropathy Bilateral hands and feet DJD (degenerative joint disease) DM type 2 (diabetes mellitus, type 2) Essential tremor Fibromyalgia GERD (gastroesophageal reflux disease) Heart murmur Hip pain, chronic right History of hemorrhoids HLD (hyperlipidemia) Hyperlipemia Ileostomy present Insomnia Low back pain with right-sided sciatica multiple pain management injections with Dr. Archer Squamous cell carcinoma of anal canal Diagnosed 05/05/2019. Invasive, moderately differientiated, P-16 positive, Positive margin. s/p ileostomy, completed mitomycin x1 dose on 06/14/2019 and Xeloda along with radiation treatment between 06/09/2019-07/28/2019 Surgical History History of arthroplasty of left knee History of arthroscopy of right knee History of breast biopsy 1994, 2001 History of breast surgery nipple areola reconstruction, s/p multiple infections History of cholecystectomy 08/17/16 History of colonoscopy 2010, 2016 History of hemorrhoidectomy 02/17/19 History of hernia repair History of hysterectomy age 37 History of neck surgery excision of lipoma-08/23/17 History of rectal abscess with I &D 05/05/19 History of shoulder surgery right 2009, ;left-2012. S/P trigger finger release Status post trigger finger release Family History Grandmother (Maternal) , in 60's Lung cancer Brother No problems noted. Sister No problems noted. Daughter No problems noted. Son No problems noted. 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 Physical Exam Physical Exam: Please see Dr. Marquez's addendum for physical exam. Results & Data Results & Data ([facility]) Vital Signs (Past 12 Hours) Vital Signs Temp Pulse Pulse Resp BP BP Pulse Ox 03/26/22 11:42 79 16 107/68 97 03/26/22 10:41 82 18 99/59 L 96 03/26/22 10:41 96 03/26/22 10:09 36.5 C 86 18 105/58 L 99 O2 Del Method O2 Flow Rate 03/26/22 11:42 Room Air 03/26/22 10:41 Nasal Cannula 2 03/26/22 10:41 Nasal Cannula 2 03/26/22 10:09 Nasal Cannula 2 Laboratory Results Short CBC 03/26/22 Range/Units 10:23 WBC 7.47 (4.8-10.8) K/ul Hgb 12.1 (12.0-16.0) g/dl Hct 33.7 L (34.1-44.9) % Plt Count 230 (130-400) K/uL BMP 03/26/22 10:23 Sodium 122 L Potassium 3.5 Chloride 81 L Carbon Dioxide 32 BUN 13 Creatinine 0.83 Glucose 136 H Calcium 8.3 L Liver Function 03/26/22 Range/Units 10:23 Total Bilirubin 0.5 (0.2-1.0) mg/dl AST 9 L (13-39) U/L ALT 8 (7-52) U/L Alkaline Phosphatase 55 (34-104) U/L Albumin 3.8 (3.4-5.0) gm/dl Urine 03/26/22 Range/Units 12:34 Urine Color Yellow Urine Appearance Clear (Clear) Urine pH 7.0 (4.5-7.5) Ur Specific [place] 1.003 (1.000-1.030) Urine Protein Negative (Negative) Urine Glucose (UA) Negative (Negative) Diagnostic Findings Chest X-Ray 03/26/22 10:18 SINGLE VIEW CHEST CLINICAL HISTORY: Cough FINDINGS: An AP, portable, upright chest radiograph is compared to study dated 03/02/2022. Correlation is made with chest CT dated 11/23/2019. The heart is top normal in size noting atherosclerotic calcification of the thoracic aorta. Mild emphysema and chronic interstitial thickening similar to previous. There are scattered calcified granulomas. There is left basilar consolidation. No pneumothorax is seen. The skeletal structures are osteopenic. There is chronic deformity of the right proximal humerus. Arthritic change is noted in the shoulders. IMPRESSION: 1. Emphysema. 2. There is airspace consolidation at the left lung base. The majority of this is linear in appearance and likely represents platelike atelectasis. Correlate clinically for evidence of superimposed pneumonia/aspiration pneumonitis. Radiographic follow-up to resolution is recommended. ACT 112: Negative or not required by law. Electronically signed by: Miguel Adair M.D. 03/26/2022 10:41 AM Code Status & VTE Plan VTE Prophylaxis Plan VTE Prophylaxis will be ordered: Yes Supervising Physician Co-Signing Physician Notes The patient is a 66-year-old diabetic female with history of ileostomy as a result of cancer treatment presenting after a low sodium was found during outpatient blood work. On arrival she is asymptomatic denying any nausea pain or other uncontrolled symptoms. She reports drinking excessive amounts of free water as a result of a dry mouth issue, and is thought to have low oral solute intake, as well. She denies any vomiting or excessive ileostomy output. CONSTITUTIONAL: WNWD, vitals as above, generally well-appearing EYES: pupils are round and equal bilaterally, normal conjunctivae, no scleral icterus ENT: external ear and nose normal, oropharynx clear, mucous membranes are moist NECK: trachea midline RESPIRATORY: clear to auscultation bilaterally, no crackles, rales or wheezes, normal respiratory effort CARDIOVASCULAR: regular rate and rhythm, 3/6 GILMA heard, no gallops or rubs, no JVD, no peripheral edema CHEST: inspection of chest was normal GASTROINTESTINAL: soft, nontender, nondistended. MUSCULOSKELETAL: strength 5/5 throughout, head is normocephalic and atraumatic SKIN: warm and dry NEUROLOGIC: CN 2-12 grossly intact, no sensory deficit, normal cognition, normal speech, no tremor PSYCHIATRIC: alert cooperative and oriented to person, place and time. Euth ymic mood, makes good eye contact, language grossly intact, recent and remote memory grossly intact. Work-up reveals a normal CBC with a low sodium at 122, potassium 3.5, chloride of 81, CO2 of 32, normal renal function. Serum osmolality is low at 251. Magnesium is low at 0.9. Thyroid level is normal. Urine does not appear infected. FeNa is 0.5%. Chest x-ray with emphysema and atelectasis. EKG with normal sinus rhythm. 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 She takes intermittent Lasix, and is noted to have a urine sodium of less than 10. She does not appear overtly dehydrated and reports drinking excessive amounts of free water and upwards of 120 to 140 ounces per day secondary to dry mouth issues. Agree with plan for fluid restriction and she was given a small amount of normal saline in the ER already. Will have a goal of sodium not rising beyond 128 in the next 24 hours. She is currently asymptomatic however does report weakness. Agree with getting PT and OT to assess her will be important after recent prolonged hospital stay. She was praised for staying quit from smoking. Jimmy, DO
[2022-03-26 12:50] LABS: Appearance Urine Clear (Clear); Bilirubin Urine Negative (Negative); Blood Urine Negative (Negative); Color Urine Yellow; Glucose Urine UA Negative (Negative); Ketones Urine Negative (Negative); Leukocyte Esterase Urine Negative (Negative); Nitrite Urine Negative (Negative); Protein Urine Negative (Negative); Specific Gravity Urine 1.003 (1.000-1.030); Urobilinogen Urine Negative (Negative)
[2022-03-26] MEDS ORDERED: CARBOHYDRATES FOR HYPOGLYCEMIA PO PRN (14:02)
[2022-03-26] MEDS ORDERED: DEXTROSE 50% 50 ML SYRINGE IV PRN (14:02)
[2022-03-26] MEDS ORDERED: GLUCOSE 10 TAB/TUBE PO PRN (14:02)
[2022-03-26] MEDS ORDERED: GLUCAGON FOR INJ 1 MG VIAL SQ PRN (14:02)
[2022-03-26] MEDS ORDERED: GLUCOSE 40% GEL 15 GM TUBE PO PRN (14:02)
--- NOTE | 2022-03-26 14:22 | Communication Note ---
Date of Service: March 26, 2022 66-year-old female referred to the ER for low sodium seen on outpatient labs. Patient denies any symptoms at this time, including no nausea vomiting or increased output from her ostomy. She does report drinking excessive amounts of water daily because her mouth is dry. She reports eating regularly, however, she just came out of the hospital and is continuing to recover from a major illness. She denies any shortness of breath chest pain abdominal pain or other issues today. She remains quit from smoking and was praised for this. She is still reportedly weak, physically. She is ambulating independently, but is open to help with her ADLs.
--- NOTE | 2022-03-26 15:21 | Electrocardiogram Report ---
Test Reason : Blood Pressure : / mmHG Vent. Rate : 086 BPM Atrial Rate : 086 BPM P-R Int : 178 ms QRS Dur : 078 ms QT Int : 388 ms P-R-T Axes : 066 054 061 degrees QTc Int : 464 ms Poor data quality, interpretation may be adversely affected Normal sinus rhythm Normal ECG When compared with ECG of 02-MAR-2022 07:41, Vent. rate has decreased BY 68 BPM Confirmed by Sukh Trevino ([id number]) on 03/26/2022 3:21:03 PM Referred By: Sukh Holman Confirmed By:Sukh Trevino
[2022-03-26] MEDS ORDERED: ACETAMINOPHEN 325 MG TAB PO PRN (16:22)
[2022-03-26] MEDS ORDERED: FLUTICASONE PROPIONATE NA SPR 16 GM BTL NAE PRN (16:22)
[2022-03-26] MEDS ORDERED: POLYETHYLENE (MIRALAX) 17 GM PACK PO PRN (16:22)
[2022-03-26] MEDS ORDERED: ONDANSETRON INJ 2 MG/ML 2 ML VIAL IV PRN (16:22)
[2022-03-26] MEDS ORDERED: ALBUTEROL HFA 8 GM INHALER INH PRN (16:22)
[2022-03-26] MEDS: INSULIN ASPART PER UNIT SC SCH ×2 (17:56→20:13)
[2022-03-26 18:59] LABS: BUN Creatinine Ratio 9.7 (10-20); Calcium 7.9 mg/dl (8.5-10.1); Creatinine Clr Calc Pharmacy 58.3 ml/min; Est GFR (African American) 74.2 ml/min; Potassium 3.4 mmol/L (3.5-5.1)
[2022-03-26] MEDS: traZODone HCL 50 MG TAB PO SCH (20:11)
[2022-03-26] MEDS: ATORVASTATIN 20 MG TAB PO SCH (20:11)
[2022-03-26] MEDS: CYCLOBENZAPRINE HCL 10 MG TAB PO SCH (20:11)
[2022-03-26] MEDS: MoRPHine SULFATE CR 15 MG TABCR PO SCH (20:11)
[2022-03-26] MEDS: GABAPENTIN 600 MG TAB PO SCH (20:12)
[2022-03-26] MEDS: PROPRANOLOL HCL 20 MG TAB PO SCH (20:12)
[2022-03-26] MEDS: rOPINIRole HCL 1 MG TABLET PO SCH (20:13)
[2022-03-26] MEDS: SERTRALINE HCL 50 MG TABLET PO SCH (20:14)
[2022-03-26] MEDS ORDERED: POTASSIUM CHLORIDE CRTAB 20 MEQ TABCR PO STA (20:47)
[2022-03-26] MEDS: HYDROmorphone HCL 2 MG TAB PO PRN (20:55)
[2022-03-26 23:56] LABS: BUN Creatinine Ratio 10.3 (10-20); Calcium 7.9 mg/dl (8.5-10.1); Creatinine Clr Calc Pharmacy 79.7 ml/min; Est GFR (African American) 105.6 ml/min; Est GFR (Non-African American) 91.2 ml/min; Potassium 3.2 mmol/L (3.5-5.1)
[2022-03-27] MEDS ORDERED: POTASSIUM CHLORIDE CRTAB 20 MEQ TABCR PO STA (00:21)
[2022-03-27] MEDS ORDERED: SODIUM CHLORIDE 0.45 % 1,000 ML IV ONE (00:22)
[2022-03-27 06:32] LABS: Hematocrit (blood only) 31.3 % (34.1-44.9); Hemoglobin 10.9 g/dl (12.0-16.0); Mean Corpuscular Hemoglobin 30.4 pg (25.0-34.0); Mean Corpuscular Hgb Conc 34.8 g/dL (32.0-36.0); Mean Corpuscular Volume 87.4 fL (80.0-100.0); Mean Platelet Volume 8.6 fL (9.4-12.3); Platelet Count 192 K/uL (130-400); RDW Coefficient of Variation 13.6 % (11.5-14.5); RDW Standard Deviation 43.5 fL (36.4-46.3); Red Blood Count 3.58 M/uL (3.93-5.22); White Blood Count 6.84 K/ul (4.8-10.8)
[2022-03-27 07:18] LABS: BUN Creatinine Ratio 8.5 (10-20); Calcium 8.1 mg/dl (8.5-10.1); Creatinine Clr Calc Pharmacy 88.1 ml/min; Est GFR (African American) 110.7 ml/min; Est GFR (Non-African American) 95.5 ml/min; Potassium 4.1 mmol/L (3.5-5.1)
[2022-03-27] MEDS ORDERED: DEXTROSE 5% 1,000 ML IV ONE (07:40)
[2022-03-27] MEDS: ASPIRIN 81 MG ECTAB PO SCH (07:50)
[2022-03-27] MEDS: buPROPion XL 150 MG TABCR PO SCH (07:50)
[2022-03-27] MEDS: CYCLOBENZAPRINE HCL 10 MG TAB PO SCH ×3 (07:50→21:10)
[2022-03-27] MEDS: ENOXAPARIN INJ 40 MG/0.4 ML SYR SQ SCH (07:51)
[2022-03-27] MEDS: FLUTICASONE FUROATE 200MCG 14 PUFFS/INHALER INH SCH (07:51)
[2022-03-27] MEDS: MELOXICAM 7.5 MG TAB PO SCH (07:52)
[2022-03-27] MEDS: MoRPHine SULFATE CR 15 MG TABCR PO SCH ×2 (07:52→21:14)
[2022-03-27] MEDS: GABAPENTIN 600 MG TAB PO SCH ×3 (07:52→21:09)
[2022-03-27] MEDS: PANTOprazole 40 MG TAB PO SCH (07:53)
[2022-03-27] MEDS: UMECLIDINIUM/VILANTEROL 62.5/25MCG 7 PUFFS/INHALER INH SCH (07:53)
[2022-03-27] MEDS: INSULIN ASPART PER UNIT SC SCH ×4 (09:37→21:05)
[2022-03-27] MEDS: PROPRANOLOL HCL 20 MG TAB PO SCH ×2 (10:02→21:09)
[2022-03-27] MEDS: HYDROmorphone HCL 2 MG TAB PO PRN ×2 (16:45→21:27)
[2022-03-27 17:37] LABS: BUN Creatinine Ratio 6.8 (10-20); Calcium 8.1 mg/dl (8.5-10.1); Creatinine Clr Calc Pharmacy 88.1 ml/min; Est GFR (African American) 110.7 ml/min; Est GFR (Non-African American) 95.5 ml/min; Potassium 3.9 mmol/L (3.5-5.1)
--- NOTE | 2022-03-27 17:39 | Hospitalist Progress Note ---
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 Acute hyponatremia Hypotonic euvolemic hyponatremia Initial Na of 122, given 1,000ml NSS in ED Serum osm, urine osm and urine Na all low, indicating primary polydipsia Na increased to 133 this morning, (goal was 128-130) She was placed on D5W due to Na over corrected. Repeat Na 127 this afternoon, will d/c IVF Will place on fluid restriction with 2L daily Continue monitor BMP Hypomagnesemia Mag 0.9 on admission Mg 2 today Continue monitor electrolytes Generalized weakness Following extending admission for covid PNA requiring intubation, still on 2L NC O2 Continue PT/OT eval Likely to benefit from a walker Fall precaution History of anal squamous cell carcinoma s/p ileostomy, chemo, and radiation H/o surgical resection now with ileostomy, follows with colorectal surgeon Dr. Faith in [facility] Hypoxia 2/2 recent covid PNA At new baseline O2 requirement saturating at 96% on 2L NC CXR with emphysema. There is airspace consolidation at the left lung base. The majority of this is linear in appearance and likely represents platelike atelectasis Does not appear clinically like PNA, euvolemic. Continue supplemental o2 DM type 2 (diabetes mellitus, type 2) Most recent Hgba1c 6 (04/02) Continue to hold home agents SSI while in-patient Continue monitor BS COPD (chronic obstructive pulmonary disease) Quit smoking 1 month ago Continue home inhalers, prn nebs Fibromyalgia Chronic back pain Continue PO Morphine 30mg BID (recently decreased) and PO dilaudid for severe breakthrough pain Stable Essential tremor Continue propranolol DVT Ppx: SQ lovenox Code status: FULL Disposition Will discharge once medically stable Admission and Anticipated Discharge Date Admission Date: March 26, 2022 Subjective Pt was seen and examined for follow up of electrolytes abnormality Lying in bed with no acute distress Pt said that she feels ok Denies any chest pain, palpitation, dizziness and SOB Review of Systems Review of Systems: All systems reviewed & are unremarkable except as noted in Subjective Physical Exam Physical Exam: General- No acute distress Head- atraumatic Eyes- PERRL, EOMI, ENT- oropharynx clear Neck- supple, no JVD Lungs- +diminished BS Heart- regular rhythm; no murmur Abdomen- normal bowel sounds, soft, nontender Extremities- no calf tenderness Neuro- alert, oriented x 3; PERRL, EOMI; no facial palsy; no dysarthria Skin- warm & dry Results & Data Results & Data ([facility]) Vital Signs (Past 12 Hours) Vital Signs Temp Pulse Pulse Resp BP Pulse Ox O2 Del Method 03/27/22 15:21 36.4 C L 85 20 100/66 95 Nasal Cannula 03/27/22 14:52 89 03/27/22 08:00 Nasal Cannula 03/27/22 11:39 36.5 C 83 20 101/65 93 Nasal Cannula 03/27/22 07:52 36.7 C 92 H 19 95/61 L 94 Room Air 03/27/22 07:21 90 O2 Flow Rate 03/27/22 15:21 2 03/27/22 14:52 03/27/22 08:00 2 03/27/22 11:39 2 03/27/22 07:52 2 03/27/22 07:21
[2022-03-27] MEDS: traZODone HCL 50 MG TAB PO SCH (21:08)
[2022-03-27] MEDS: rOPINIRole HCL 1 MG TABLET PO SCH (21:08)
[2022-03-27] MEDS: SERTRALINE HCL 50 MG TABLET PO SCH (21:08)
[2022-03-27] MEDS: ATORVASTATIN 20 MG TAB PO SCH (21:09)
[2022-03-28 06:49] LABS: BUN Creatinine Ratio 4.9 (10-20); Calcium 8.2 mg/dl (8.5-10.1); Creatinine Clr Calc Pharmacy 85.3 ml/min; Est GFR (African American) 109.5 ml/min; Est GFR (Non-African American) 94.5 ml/min; Potassium 4.2 mmol/L (3.5-5.1)
[2022-03-28] MEDS: CYCLOBENZAPRINE HCL 10 MG TAB PO SCH (08:28)
[2022-03-28] MEDS: ENOXAPARIN INJ 40 MG/0.4 ML SYR SQ SCH (08:28)
[2022-03-28] MEDS: buPROPion XL 150 MG TABCR PO SCH (08:28)
[2022-03-28] MEDS: ASPIRIN 81 MG ECTAB PO SCH (08:28)
[2022-03-28] MEDS: FLUTICASONE FUROATE 200MCG 14 PUFFS/INHALER INH SCH (08:28)
[2022-03-28] MEDS: PROPRANOLOL HCL 20 MG TAB PO SCH (08:29)
[2022-03-28] MEDS: GABAPENTIN 600 MG TAB PO SCH (08:29)
[2022-03-28] MEDS: UMECLIDINIUM/VILANTEROL 62.5/25MCG 7 PUFFS/INHALER INH SCH (08:29)
[2022-03-28] MEDS: PANTOprazole 40 MG TAB PO SCH (08:29)
[2022-03-28] MEDS: MELOXICAM 7.5 MG TAB PO SCH (08:29)
[2022-03-28] MEDS: MoRPHine SULFATE CR 15 MG TABCR PO SCH (08:36)
[2022-03-28] MEDS: INSULIN ASPART PER UNIT SC SCH (08:37)
[2022-03-28 11:30] VITALS: TEMP 97.7
[2022-03-28 12:01] VITALS: O2SAT 93
--- NOTE | 2022-03-28 12:43 | Discharge Summary ---
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 Was seen yesterday in hospital follow-up for late February admission to [facility] and then transferred to [place] for management of her parastomal hernia, where she developed COVID-pneumonia and was intubated in the ICU. Responded well to treatment and was discharged home on 2 L nasal cannula oxygen. Was seen in the office yesterday and was desaturating to the mid 70s without oxygen but maintaining upper 90% with oxygen. Last smoked 1 month prior. BMP revealed sodium of 121 patient was directed to come to ED for further evaluation. Since discharge from [place], patient has been feeling well. No increased SOB but still using supplemental oxygen. Still with residual loose cough. No fever, chills, lightheadedness, confusion, chest pain, palpitations, N/V, abdominal pain or dysuria. Ostomy output has been stable since discharge. States her appetite has increased in the past week. Drinking approximately 120 fluid oz a day per her estimation. Has felt deconditioned since discharge home. Quit smoking 1 month ago. Admission Exam Per Admitting Provider CONSTITUTIONAL: WNWD, vitals as above, generally well-appearing EYES: pupils are round and equal bilaterally, normal conjunctivae, no scleral icterus ENT: external ear and nose normal, oropharynx clear, mucous membranes are moist NECK: trachea midline RESPIRATORY: clear to auscultation bilaterally, no crackles, rales or wheezes, normal respiratory effort CARDIOVASCULAR: regular rate and rhythm, 3/6 GILMA heard, no gallops or rubs, no JVD, no peripheral edema CHEST: inspection of chest was normal GASTROINTESTINAL: soft, nontender, nondistended. MUSCULOSKELETAL: strength 5/5 throughout, head is normocephalic and atraumatic SKIN: warm and dry NEUROLOGIC: CN 2-12 grossly intact, no sensory deficit, normal cognition, normal speech, no tremor PSYCHIATRIC: alert cooperative and oriented to person, place and time. Euthymic mood, makes good eye contact, language grossly intact, recent and remote memory grossly intact. Principal Diagnosis Acute hyponatremia Hypomagnesemia Generalized weakness History of anal squamous cell carcinoma s/p ileostomy, chemo, and radiation Hypoxia 2/2 recent covid PNA DM type 2 (diabetes mellitus, type 2) COPD (chronic obstructive pulmonary disease) Fibromyalgia Chronic back pain Essential tremor Discharge Exam General- No acute distress Head- atraumatic Eyes- PERRL, EOMI, ENT- oropharynx clear Neck- supple, no JVD Lungs- +diminished BS Heart- regular rhythm; no murmur Abdomen- normal bowel sounds, soft, nontender Extremities- no calf tenderness Neuro- alert, oriented x 3; PERRL, EOMI; no facial palsy; no dysarthria Skin- warm & dry Discharge Data Allergies Allergy/AdvReac Type Severity Reaction Status Date / Time adhesive Allergy Mild SWELLING/RA Verified 06/03/21 14:09 Consultations 03/26/22 11:58 ED Decision to Admit Stat Ordered Studies Laboratory Results WBC 6.84 K/ul (4.8-10.8) 03/27/22 06:16 RBC 3.58 M/uL (3.93-5.22) L 03/27/22 06:16 Hgb 10.9 g/dl (12.0-16.0) L 03/27/22 06:16 Hct 31.3 % (34.1-44.9) L 03/27/22 06:16 MCV 87.4 fL (80.0-100.0) 03/27/22 06:16 MCH 30.4 pg (25.0-34.0) 03/27/22 06:16 MCHC 34.8 g/dL (32.0-36.0) 03/27/22 06:16 RDW Std Deviation 43.5 fL (36.4-46.3) 03/27/22 06:16 RDW Coeff of Chelle 13.6 % (11.5-14.5) 03/27/22 06:16 Plt Count 192 K/uL (130-400) 03/27/22 06:16 MPV 8.6 fL (9.4-12.3) L 03/27/22 06:16 Immature Gran % (Auto) 1.3 % 03/26/22 10:23 Neut % (Auto) 77.7 % 03/26/22 10:23 Lymph % (Auto) 9.1 % 03/26/22 10:23 [place] % (Auto) 9.5 % 03/26/22 10:23 Eos % (Auto) 1.9 % 03/26/22 10:23 Baso % (Auto) 0.5 % 03/26/22 10:23 Neut # (Auto) 5.80 K/uL (1.4-6.5) 03/26/22 10:23 Lymph # (Auto) 0.68 K/uL (1.2-3.4) L 03/26/22 10:23 [place] # (Auto) 0.71 K/uL (0.24-0.82) 03/26/22 10:23 Eos # (Auto) 0.14 K/uL (0-0.50) 03/26/22 10:23 Baso # (Auto) 0.04 K/uL (0-0.2) 03/26/22 10: Immature Gran # (Auto) 0.10 K/uL (0.00-0.02) H 03/26/22 10:23 Sodium 134 mmol/L (136-145) L 03/28/22 05:33 Potassium 4.2 mmol/L (3.5-5.1) 03/28/22 05:33 Chloride 97 mmol/L (98-107) L 03/28/22 05:33 Carbon Dioxide 34 mmol/L (21-32) H 03/28/22 05:33 Anion Gap 3 (3-11) 03/28/22 05:33 BUN 3 mg/dl (6-23) L 03/28/22 05:33 Creatinine 0.61 mg/dl (0.6-1.2) 03/28/22 05:33 Est Cr Clr Drug Dosing 85.3 ml/min 03/28/22 05:33 Est GFR ( Amer) 109.5 ml/min 03/28/22 05:33 Est GFR (Non-Af Amer) 94.5 ml/min 03/28/22 05:33 BUN/Creatinine Ratio 4.9 (10-20) L 03/28/22 05:33 Glucose 117 mg/dl (70-99(Fasting)) H 03/28/22 05:33 POC Glucose 89 mg/dl (70-99) 03/28/22 11:50 Osmolality 251 mOsm/kg (280-300) L 03/26/22 10:23 Calcium 8.2 mg/dl (8.5-10.1) L 03/28/22 05:33 Magnesium 2.0 mg/dl (1.7-2.4) 03/27/22 06:16 Total Bilirubin 0.5 mg/dl (0.2-1.0) 03/26/22 10:23 AST 9 U/L (13-39) L 03/26/22 10:23 ALT 8 U/L (7-52) 03/26/22 10:23 Alkaline Phosphatase 55 U/L (34-104) 03/26/22 10:23 Troponin I High Sens 4.0 pg/ml (0-14) 03/26/22 10:23 Total Protein 6.6 gm/dl (6.0-8.3) 03/26/22 10:23 Albumin 3.8 gm/dl (3.4-5.0) 03/26/22 10:23 Globulin 2.8 gm/dl (2.5-4.0) 03/26/22 10:23 Albumin/Globulin Ratio 1.4 (0.9-2) 03/26/22 10:23 TSH 2.416 uIu/ml (0.300-4.500) 03/26/22 10:23 Urine Color Yellow 03/26/22 12:34 Urine Appearance Clear (Clear) 03/26/22 12:34 Urine pH 7.0 (4.5-7.5) 03/26/22 12:34 Ur Specific [place] 1.003 (1.000-1.030) 03/26/22 12:34 Urine Protein Negative (Negative) 03/26/22 12:34 Urine Glucose (UA) Negative (Negative) 03/26/22 12:34 Urine Ketones Negative (Negative) 03/26/22 12:34 Urine Blood Negative (Negative) 03/26/22 12:34 Urine Nitrite Negative (Negative) 03/26/22 12:34 Urine Bilirubin Negative (Negative) 03/26/22 12:34 Urine Urobilinogen Negative (Negative) 03/26/22 12:34 Ur Leukocyte Esterase Negative (Negative) 03/26/22 12:34 Urine Osmolality 67 mOsm/kg (500-800) L 03/26/22 12:34 Ur Random Creatinine 16.1 mg/dl 03/26/22 12:34 Ur Random Sodium < 10 mmol/L 03/26/22 12:34 SARS-CoV-2, RNA, NAAT NEGATIVE (NEGATIVE) 03/26/22 10:29 Impressions Chest X-Ray 03/26/22 10:18 SINGLE VIEW CHEST CLINICAL HISTORY: Cough FINDINGS: An AP, portable, upright chest radiograph is compared to study dated 03/02/2022. Correlation is made with chest CT dated 11/23/2019. The heart is top normal in size noting atherosclerotic calcification of the thoracic aorta. Mild emphysema and chronic interstitial thickening similar to previous. There are scattered calcified granulomas. There is left basilar consolidation. No pneumothorax is seen. The skeletal structures are osteopenic. There is chronic deformity of the right proximal humerus. Arthritic change is noted in the shoulders. IMPRESSION: 1. Emphysema. 2. There is airspace consolidation at the left lung base. The majority of this is linear in appearance and likely represents platelike atelectasis. Correlate clinically for evidence of superimposed pneumonia/aspiration pneumonitis. Radiographic follow-up to resolution is recommended. ACT 112: Negative or not required by law. Electronically signed by: Miguel Adair M.D. 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 Acute hyponatremia Hypotonic euvolemic hyponatremia Initial Na of 122, given 1,000ml NSS in ED Serum osm, urine osm and urine Na all low, indicating primary polydipsia Na increased to 133 this morning, (goal was 128-130) She was placed on D5W due to Na over corrected. Repeat Na 127 yesterday IVF was discontinued and was placed on fluid restriction 2 L Na 134 today Will check BMP in 1 week to monitor Sodium Hypomagnesemia Mag 0.9 on admission Mg 2 yesterday Check Magnesium level in 1 week Generalized weakness Following extending admission for covid PNA requiring intubation, still on 2L NC O2 Continue PT/OT eval Script given for a walker Fall precaution History of anal squamous cell carcinoma s/p ileostomy, chemo, and radiation H/o surgical resection now with ileostomy, follows with colorectal surgeon Dr. Faith in [facility] Hypoxia 2/2 recent covid PNA At new baseline O2 requirement saturating at 96% on 2L NC CXR with emphysema. There is airspace consolidation at the left lung base. The majority of this is linear in appearance and likely represents platelike atelectasis Does not appear clinically like PNA, euvolemic. Continue supplemental 2L oxygen supplement with activity Saturated well on RA DM type 2 (diabetes mellitus, type 2) Most recent Hgba1c 6 (04/02) Continue to hold home agents SSI while in-patient Continue monitor BS COPD (chronic obstructive pulmonary disease) Quit smoking 1 month ago Continue home inhalers, prn nebs Fibromyalgia Chronic back pain Continue PO Morphine 30mg BID (recently decreased) and PO dilaudid for severe breakthrough pain Stable Essential tremor Continue propranolol DVT Ppx: SQ lovenox Code status: FULL Disposition Discharge home today with home health Total Time Total Time Spent Total Time Spent (In Minutes): 35 minutes Discharge Plan Discharge Items Patient Disposition: Home - Home Health Services Reason For Visit: HYPONATREMIA Discharge Diagnosis: Acute hyponatremia Hypomagnesemia Generalized weakness History of anal squamous cell carcinoma s/p ileostomy, chemo, and radiation Hypoxia 2/2 recent covid PNA DM type 2 (diabetes mellitus, type 2) COPD (chronic obstructive pulmonary disease) Fibromyalgia Chronic back pain Essential tremor Activity: Resume your previous activity Non-emergency contact: Primary Care Provider Call non-emergency contact if: you have any medication questions and your symptoms worsen Follow-up/Referrals: Sukh Holman MD [Primary Care Provider] - Diet: Carb Consistent or DM2 Fluids: 2000ml (8 cups) Addtl Attending Provider Instructions: You were admitted at [facility] for electrolytes abnormalities ( Low potassium and Low magnesium) Follow up with your primary care provider Dr. Holman within 1 week Continue physical therapy outpatient Check Magnesium and BMP in 1 week to monitor your electrolytes Continue oxygen supplement with 2 Liter Nasal canula with activities Continue tobacco cessation Continue monitor your blood sugar and limited concentrated sweet intake Continue fluid restriction with 2 Liter daily Fall precaution Pending Studies at Discharge: No Stand-Alone Forms: My [facility], Smoking Cessation Medications and DC Order Prescriptions: Continued hydromorphone [Dilaudid] 4 mg tablet 4 mg PO Q4H PRN (Reason: pain) prochlorperazine maleate [Compazine] 10 mg tablet 10 mg PO Q6H PRN (Reason: Constipation) ondansetron HCl 8 mg tablet 8 mg PO Q8H PRN (Reason: Nausea) albuterol sulfate 90 mcg/actuation HFA aerosol inhaler 2 puff inhalation Q4H PRN (Reason: Shortness Of Breath Or Wheezing) gabapentin 600 mg tablet 600 mg PO TID trazodone 50 mg tablet 50 mg PO HS pantoprazole [Protonix] 40 mg tablet,delayed release (DR/EC) 40 mg PO QAM metformin 1,000 mg tablet 1,000 mg PO BIDM fluticasone propionate 50 mcg/actuation spray,suspension 2 spray INTRANASAL QAM PRN (Reason: Allergy Symptoms) atorvastatin 20 mg Tablet 20 mg PO HS aspirin 81 mg Tablet,Delayed Release (Dr/Ec) 81 mg PO QAM sertraline 50 mg Tablet 50 mg PO HS bupropion HCl [Wellbutrin XL] 150 mg Tablet Extended Release 24 Hr 150 mg PO QAM cyclobenzaprine 10 mg tablet 10 mg PO TID Trelegy Ellipta 200-62.5-25 mcg blister with device 1 inh INHALATION DAILY meloxicam 15 mg tablet 15 mg PO DAILY ropinirole 3 mg tablet 3 mg PO HS morphine 30 mg tablet extended release 30 mg PO BID propranolol 20 mg tablet 20 mg PO BID furosemide 40 mg tablet 40 mg PO DAILY PRN (Reason: Edema) Discharge Orders: Discharge Order (Routine); Ordered 03/28/22 Ordered By: Faraz Sanchez Admission Data Admit Date/Time: 03/26/22 12:19 Attending Provider: Faraz Sanchez Admit Provider: Jovita Marquez Primary Care Provider: Sukh Holman Other Providers: Jovita Marquez
[2022-03-28 13:09] VITALS: BP 110/76; PULSE 90
== END 2022-03-28 14:08 | disposition home health service (06) | DRG 641 ==
LOC: ED 10:06 → 2W 12:19 → SUATTDRO 12:19 → 2W 15:40

== ENCOUNTER 2023-08-12 16:19 | Inpatient (IN) ==
[2023-08-12] MEDS: SODIUM CHLORIDE 0.9% 500 ML IV SCH (16:35)
[2023-08-12 17:05] LABS: Basophils # (auto) 0.06 K/uL (0.00-0.20); Basophils % (auto) 0.7 %; Eosinophils # (auto) 0.14 K/uL (0.00-0.50); Eosinophils % (auto) 1.7 %; Hematocrit (blood only) 38.1 % (37.0-47.0); Immature Granulocytes # (auto) 0.07 K/uL (0.01-0.20); Immature Granulocytes % (auto) 0.9 %; Lymphocytes # (auto) 1.07 K/uL (1.20-3.40); Lymphocytes % (auto) 13.3 %; Mean Corpuscular Hemoglobin 30.3 pg (25.0-34.0); Mean Corpuscular Hgb Conc 34.1 g/dL (32.0-36.0); Mean Corpuscular Volume 88.8 fL (80.0-100.0); Mean Platelet Volume 8.7 fL (9.4-12.4); Monocytes # (auto) 0.73 K/uL (0.11-0.59); Monocytes % (auto) 9.1 %; Neutrophils # (auto) 5.97 K/uL (1.40-6.50); Neutrophils % (auto) 74.3 %; Platelet Count 228 K/uL (130-400); RDW Coefficient of Variation 13.5 % (11.5-14.5); RDW Standard Deviation 43.8 fL (36.4-46.3); Red Blood Count 4.29 M/uL (4.20-5.40); White Blood Count 8.04 K/ul (4.8-10.8)
--- NOTE | 2023-08-12 17:15 | Emergency Department Note ---
Impression & Plan Acute respiratory failure with hypoxia and hypercarbia, Hypomagnesemia, JOSEPHINE (acute kidney injury), Acute exacerbation of chronic obstructive pulmonary disease ED Provider Note Provider: [place] MD DATE OF SERVICE: 08/12/2023 CHIEF COMPLAINT: Short of breath, weak, upper back pain HISTORY OF PRESENT ILLNESS: Patient is a 67-year-old female past medical history of type 2 diabetes, COPD, hyperlipidemia, fibromyalgia presenting here today with reports of onset this afternoon of shortness of breath and generalized weakness with some upper back discomfort. Started just a few hours ago. Was feeling better this morning. No falls or syncope but feeling weak. No significant focal numbness or weakness. Drowsy. No headache and not really having chest pain but more pain in the upper mid back. Feels better with pressure to the area. Denies any abdominal pain or nausea or vomiting. Has home oxygen for use as needed but was not using that today. PAST MEDICAL HISTORY: As noted above MEDICATIONS: Reviewed home medications SOCIAL HISTORY: Smoker PHYSICAL EXAM: GENERAL: alert and oriented in no acute distress on stretcher but somewhat fatigued appearing Head: normocephalic and atraumatic EYES: No injection, discharge or icterus. EOMI. NECK: Trachea midline. ENT: Mucous membranes pink and moist. LUNGS: Airway patent. No retractions. Breath sounds diminished with slight expiratory wheeze HEART: Regular rate and rhythm. No chest wall tenderness ABDOMEN: Soft and non-tender, without guarding or rebound and ostomy in place without tenderness. SKIN: Acyanotic, warm, dry, without rashes EXTREMITIES: Without swelling, tenderness or deformity NEUROLOGICAL: No focal deficits. No aphasia. No facial droop or slurred speech. Normal strength and tone in the extremities. Sensation to gross touch normal. Ambulatory. EK bpm sinus tachycardia. No PVC or PAC. No acute ST segment elevation or depression with a QTc of 450. CONTINUOUS CARDIAC MONITORING: was ordered and showed a heart rate of 90s-120s bpm in sinus tachycardia to normal sinus rhythm Patient's laboratory studies and imaging reviewed. Differential includes Reactive airway disease, pneumonia, pneumothorax, COPD, CHF, infections, cardiac ischemia, pulmonary embolism, musculoskeletal, gastrointestinal, sepsis, dehydration, electrolyte abnormality, stroke, meningitis, as well as other pathologies. IMPRESSION/MEDICAL DECISION MAKING: Patient found in triage to be hypoxic and hypotensive. Patient given some IV fluid and oxygen supplementation. Has had needed oxygen at home. COPD history. Does appear somewhat drowsy. Metabolic infectious workup pursued and VBG will be ordered in addition to cultures and lactate. Lactate minimally elevated. Cautious given her history of some fluid overload by her report in the past but will give a liter of IV fluid. Will trial some DuoNeb. Will complete a CT of the chest to exclude PE other intrathoracic or pulmonary complaints. Lower suspicion this represents aortic dissection given her relative hypotension. Respiratory viral panel is sent. Blood work without significant anemia or leukocytosis here. Hyponatremia but appears somewhat chronic compared to previous. New JOSEPHINE with a creatinine 1.89. No significant transaminitis or evidence of pancreatitis. Procalcitonin not elevated. Given her relative illness however will give a dose of azithromycin. Magnesium low at 1.1. Will give supplementation. pH of 7.28 with a CO2 of 62. Will discuss the patient use of BiPAP at least transiently. Patient denies significant output from her ostomy. Did discuss with her given her acute kidney injury to still have concerns about possible underlying PE and in shared decision making she was agreeable with the plan advised of the risks of proceeding with a CT scan of the chest. Again hydrating her. Given an IV dose of steroids here. CT angiogram of the chest completed without evidence of PE or lung consolidation. Patient resting more comfortable on BiPAP and appears more awake. Respiratory viral panel negative. Hospitalist contacted for admission. DIAGNOSIS: Hypercapnic respiratory failure, JOSEPHINE, COPD exacerbation DISPOSITION: Hospitalist will evaluate Patient was agreeable with this plan. Critical Care I have personally spent 52 minutes of critical care time in the direct management of this patient. This includes bedside care, interpretation of diagnostic studies, and testing, discussion with consultants, patient, and family members, and other required patient management activities. These 52 minutes is in excess of all separately billable procedures. Past Med/Surg History Medical History Ileostomy present Essential tremor Chronic back pain HLD (hyperlipidemia) DM type 2 (diabetes mellitus, type 2) COPD (chronic obstructive pulmonary disease) Insomnia GERD (gastroesophageal reflux disease) DJD (degenerative joint disease) Diabetic neuropathy Bilateral hands and feet Squamous cell carcinoma of anal canal Diagnosed 05/05/2019. Invasive, moderately differientiated, P-16 positive, Positive margin. s/p ileostomy, completed mitomycin x1 dose on 06/14/2019 and Xeloda along with radiation treatment between 06/09/2019-07/28/2019 Breast infection in female Hx of chronic left breast infections for 20 years Heart murmur Hyperlipemia Degenerative disc disease Fibromyalgia Constipation Bleeding hemorrhoids History of hemorrhoids Low back pain with right-sided sciatica multiple pain management injections with Dr. Archer Hip pain, chronic right Bursitis, scapulohumeral Surgical History S/P trigger finger release Status post trigger finger release History of shoulder surgery right 2009, ;left-2012. History of hernia repair History of breast surgery nipple areola reconstruction, s/p multiple infections History of neck surgery excision of lipoma-08/23/17 History of cholecystectomy 08/17/16 History of arthroscopy of right knee History of arthroplasty of left knee History of rectal abscess with I &D 05/05/19 History of colonoscopy 2010, 2016 History of breast biopsy 1994, 2001 History of hysterectomy age 37 History of hemorrhoidectomy 02/17/19 Family History Grandmother (Maternal) , in 60's Lung cancer Brother No problems noted. Sister No problems noted. Daughter No problems noted. Son No problems noted. 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 Feels Safe at Home: Yes Safety Concerns: Feels Safe At This Time Childhood Exposure to Second-Hand Smoke: Yes caffeine: Yes (mountain dew daily 2 liters a day) Dental Care, Regularly: No Assistive Devices: Oxygen - Continuous Allergies Allergies Allergy/AdvReac Type Severity Reaction Status Date / Time adhesive Allergy Intermediate SWELLING/RA Verified 08/12/23 18:21 Home Meds Home Medications Medication Instructions Recorded Confirmed aspirin 81 mg tablet,delayed 81 mg PO QAM 02/26/19 08/12/23 release atorvastatin 20 mg tablet 20 mg PO HS 02/26/19 08/12/23 bupropion HCl 150 mg 24 hr tablet, 150 mg PO QAM 02/26/19 08/12/23 extended release (Wellbutrin XL) fluticasone propionate 50 2 spray intranasal QAM PRN Allergy 02/26/19 08/12/23 mcg/actuation nasal Symptoms spray,suspension gabapentin 600 mg tablet 600 mg PO TID 02/26/19 08/12/23 metformin 1,000 mg tablet 1,000 mg PO BIDM 02/26/19 08/12/23 pantoprazole 40 mg tablet,delayed 40 mg PO QAM 02/26/19 08/12/23 release (Protonix) trazodone 50 mg tablet 50 mg PO HS 02/26/19 08/12/23 albuterol sulfate 90 mcg/actuation 2 puff inhalation Q4H PRN 03/31/19 08/12/23 aerosol inhaler Shortness Of Breath Or Wheezing hydromorphone 4 mg tablet 4 mg PO Q4H PRN pain 07/27/19 08/12/23 (Dilaudid) cyclobenzaprine 10 mg tablet 10 mg PO TID Muscle Spasm 11/17/19 08/12/23 ondansetron HCl 8 mg tablet 8 mg PO Q8H PRN Nausea 05/29/20 08/12/23 prochlorperazine maleate 10 mg 10 mg PO Q6H PRN Constipation 05/29/20 08/12/23 tablet (Compazine) fluticasone fur. 200 mcg-umeclid 1 inh inhalation DAILY 03/02/22 08/12/23 62.5 mcg-vilant 25 mcg inhalat.powder (Trelegy Ellipta) meloxicam 15 mg tablet 15 mg PO DAILY 03/02/22 08/12/23 propranolol 20 mg tablet 20 mg PO BID 03/02/22 08/12/23 ropinirole 3 mg tablet 3 mg PO HS 03/02/22 08/12/23 furosemide 40 mg tablet 40 mg PO DAILY PRN Edema 03/26/22 08/12/23 morphine 15 mg tablet,extended 15 mg PO QAM 08/12/23 08/12/23 release Results & Data (ED) Vital Signs Vital Signs - 24 hr 08/12/23 16:22 08/12/23 16:34 08/12/23 16:45 Temperature 36.8 C Temperature Source Oral Pulse Rate 113 H 112 H Pulse Rate [Apical] 108 H Pulse Rate from SpO2 Sensor Respiratory Rate 18 20 Respiratory Effort / Characteristics Non-Labored Respiratory Depth Normal Respiratory Pattern Regular Blood Pressure 70/45 L Blood Pressure [Right Arm] 91/59 L Blood Pressure Mean 53 Blood Pressure Mean [Right Arm] 69 Pulse Oximetry 84 L 81 L Oxygen Delivery Method Room Air Room Air Oxygen Flow Rate Fraction of Inspired Oxygen Sepsis Recent Fever Within 48 Hours No Sepsis New/Unexplained Change in Mental Status N/A Sepsis Action Taken by Nursing Physician Notified 08/12/23 17:00 08/12/23 17:15 08/12/23 17:30 Temperature Temperature Source Pulse Rate 101 H 105 H Pulse Rate [Apical] 101 H Pulse Rate from SpO2 Sensor 97 H Respiratory Rate 16 19 Respiratory Effort / Characteristics Respiratory Depth Respiratory Pattern Blood Pressure 71/46 L Blood Pressure [Right Arm] 97/61 L Blood Pressure Mean 55 Blood Pressure Mean [Right Arm] 73 Pulse Oximetry 92 97 Oxygen Delivery Method Nasal Cannula Oxygen Flow Rate 2 Fraction of Inspired Oxygen Sepsis Recent Fever Within 48 Hours Sepsis New/Unexplained Change in Mental Status Sepsis Action Taken by Nursing 08/12/23 17:46 08/12/23 18:00 08/12/23 18:00 Temperature Temperature Source Pulse Rate 93 H 97 H Pulse Rate [Apical] Pulse Rate from SpO2 Sensor 90 97 H Respiratory Rate 15 22 Respiratory Effort / Characteristics Respiratory Depth Respiratory Pattern Blood Pressure 86/55 L Blood Pressure [Right Arm] Blood Pressure Mean 65 Blood Pressure Mean [Right Arm] Pulse Oximetry 97 94 96 Oxygen Delivery Method BiPAP Oxygen Flow Rate Fraction of Inspired Oxygen Sepsis Recent Fever Within 48 Hours Sepsis New/Unexplained Change in Mental Status Sepsis Action Taken by Nursing 08/12/23 18:10 08/12/23 18:30 Temperature Temperature Source Pulse Rate 93 H 91 H Pulse Rate [Apical] Pulse Rate from SpO2 Sensor 92 H Respiratory Rate 14 15 Respiratory Effort / Characteristics Non-Labored Spontaneous Respiratory Depth Normal Respiratory Pattern Regular Blood Pressure 86/53 L Blood Pressure [Right Arm] Blood Pressure Mean 64 Blood Pressure Mean [Right Arm] Pulse Oximetry 99 91 Oxygen Delivery Method Oxygen Flow Rate Fraction of Inspired Oxygen 30 Sepsis Recent Fever Within 48 Hours Sepsis New/Unexplained Change in Mental Status Sepsis Action Taken by Nursing Laboratory Data 08/12/23 16:36 08/12/23 16:36 Lab Results 08/12/23 08/12/23 08/12/23 Range/Units 16:36 17:16 17:19 WBC 8.04 (4.8-10.8) K/ul RBC 4.29 (4.20-5.40) M/uL Hgb 13.0 (12.0-16.0) g/dl Hct 38.1 (37.0-47.0) % MCV 88.8 (80.0-100.0) fL MCH 30.3 (25.0-34.0) pg MCHC 34.1 (32.0-36.0) g/dL RDW Std Deviation 43.8 (36.4-46.3) fL RDW Coeff of Chelle 13.5 (11.5-14.5) % Plt Count 228 (130-400) K/uL MPV 8.7 L (9.4-12.4) fL Immature Gran % (Auto) 0.9 % Neut % (Auto) 74.3 % Lymph % (Auto) 13.3 % Linn % (Auto) 9.1 % Eos % (Auto) 1.7 % Baso % (Auto) 0.7 % Neut # (Auto) 5.97 (1.40-6.50) K/uL Lymph # (Auto) 1.07 L (1.20-3.40) K/uL Linn # (Auto) 0.73 H (0.11-0.59) K/uL Eos # (Auto) 0.14 (0.00-0.50) K/uL Baso # (Auto) 0.06 (0.00-0.20) K/uL Immature Gran # (Auto) 0.07 (0.01-0.20) K/uL VBG pH 7.28 L (7.36-7.41) VBG pCO2 62 H (38-50) mmHg VBG pO2 31 mmHg VBG HCO3 29 mmol/L VBG O2 Saturation 61.6 % VBG Base Excess 0.8 mEq/L Sodium 129 L (136-145) mmol/L Potassium 3.4 L (3.5-5.1) mmol/L Chloride 89 L (98-107) mmol/L Carbon Dioxide 30 (21-32) mmol/L Anion Gap 10 (3-11) BUN 23 (6-23) mg/dl Creatinine 1.89 H (0.6-1.2) mg/dl Est Cr Clr Drug Dosing 30.2 ml/min Est GFR ( Amer) 31.3 ml/min Est GFR (Non-Af Amer) 27.0 ml/min BUN/Creatinine Ratio 12.2 (10-20) Glucose 158 H (70-99(Fasting)) mg/dl Lactate 2.7 H* (0.4-2.0) mmol/L Calcium 8.6 (8.6-10.3) mg/dl Magnesium 1.1 L (1.7-2.4) mg/dl Total Bilirubin 0.5 (0.2-1.0) mg/dl Direct Bilirubin 0.1 (0-0.2) mg/dl AST 10 L (13-39) U/L ALT 10 (7-52) U/L Alkaline Phosphatase 63 (34-104) U/L Troponin I High Sens 6.5 (0-14) pg/ml Total Protein 6.6 (6.0-8.3) gm/dl Albumin 4.3 (3.4-5.0) gm/dl Lipase 18 (11-82) U/L Procalcitonin 0.11 (0-0.5) ng/ml Adenovirus (PCR) Not Detected (NotDetected) B. pertussis DNA (PCR) Not Detected (NotDetected) B.parapertussis DNA PCR Not Detected (NotDetected) C. pneumoniae DNA (PCR) Not Detected (NotDetected) Coronavirus OC43 (PCR) Not Detected (NotDetected) Coronavirus HKU1 (PCR) Not Detected (NotDetected) Coronavirus 229E (PCR) Not Detected (NotDetected) SARS-CoV-2 (PCR) Not Detected (NotDetected) Coronavirus NL63 (PCR) Not Detected (NotDetected) Human Metapneumovir PCR Not Detected (NotDetected) Influenza Type A (PCR) Not Detected (NotDetected) Influenza Type B (PCR) Not Detected (NotDetected) M. pneumoniae (PCR) Not Detected (NotDetected) Parainfluenza 1 (PCR) Not Detected (NotDetected) Parainfluenza 2 (PCR) Not Detected (NotDetected) Parainfluenza 3 (PCR) Not Detected (NotDetected) Parainfluenza 4 (PCR) Not Detected (NotDetected) RSV (PCR) Not Detected (NotDetected) Entero/Rhino (PCR) Not Detected (NotDetected) Administered Medications Albuterol (Albut/Ipratrop 3mg/0.5mg Neb 3 Ml Vial) 3 ml NEB QIDR [facility]ANNA[facility]; Protocol Stop: 09/11/23 20:51 Last Admin: 08/12/23 21:26 Dose: Not Given Documented By: CHARLEE Atorvastatin Calcium (Atorvastatin 20 Mg Tab) 20 mg PO HS [facility] Stop: 09/11/23 20:59 Last Admin: 08/12/23 22:13 Dose: 20 mg Documented By: NAREN Budesonide (Budesonide 0.5 Mg/2 Ml Vial (Pulmicort)) 0.5 mg NEB BIDR [facility] Stop: 09/11/23 20:51 Last Admin: 08/12/23 21:25 Dose: 0.5 mg Documented By: CHARLEE Cyclobenzaprine HCl (Cyclobenzaprine Hcl 5 Mg Tab) 5 mg PO TID [facility] Stop: 09/11/23 20:59 Last Admin: 08/12/23 22:13 Dose: 5 mg Documented By: NAREN Formoterol Fumarate (Formoterol 20 Mcg/2 Ml Vial) 20 mcg NEB BIDR [facility] Stop: 09/11/23 20:59 Last Admin: 08/12/23 21:26 Dose: 20 mcg Documented By: CHARLEE Gabapentin (Gabapentin 300 Mg Cap) 300 mg PO TID [facility] Stop: 09/11/23 20:59 Last Admin: 08/12/23 22:12 Dose: 300 mg Documented By: NAREN Heparin Sodium (Porcine) (Heparin Sod 5,000 Unit/0.5 Ml Vial) 5,000 units SQ Q12 [facility] Stop: 09/11/23 20:59 Last Admin: 08/12/23 22:12 Dose: 5,000 units Documented By: NAREN Hydromorphone HCl (Hydromorphone Hcl 2 Mg Tab) 2 mg PO Q4H PRN PRN Reason: pain Stop: 08/26/23 20:51 Last Admin: 08/12/23 22:31 Dose: 2 mg Documented By: NAREN Magnesium Sulfate/Dextrose (Magnesium Sulfate / D5w) 1 gm in 100 mls @ 50 mls/hr IV Q2H [facility] Stop: 08/13/23 02:14 Last Admin: 08/12/23 22:13 Dose: 50 mls/hr Documented By: Infusion: 08/12/23 22:13 Dose: Infused Documented By: Admin: 08/12/23 21:34 Dose: 50 mls/hr Documented By: NAREN Sodium Chloride (Nss) 1,000 mls @ 100 mls/hr IV .Q10H [facility] Stop: 09/11/23 20:51 Last Admin: 08/12/23 21:36 Dose: 100 mls/hr Documented By: NAREN Methylprednisolone 40 mg/ (Syringe) 0.64 mls @ 1.5 mls/min IV BID [facility] Stop: 09/11/23 21:14 Last Admin: 08/12/23 21:34 Dose: 1.5 mls/min Documented By: NAREN Insulin Aspart (Insulin Aspart Per Unit Charge) 0 units SC ACHS [facility] Stop: 09/11/23 20:59 Last Admin: 08/12/23 21:34 Dose: 2 units Documented By: NAREN Co-signed By: TAO Ropinirole HCl (Ropinirole Hcl 1 Mg Tablet) 3 mg PO HS [facility] Stop: 09/11/23 20:59 Last Admin: 08/12/23 22:13 Dose: 3 mg Documented By: NAREN Trazodone HCl (Trazodone Hcl 50 Mg Tab) 50 mg PO HS [facility] Stop: 09/11/23 20:59 Last Admin: 08/12/23 22:13 Dose: 50 mg Documented By: NAREN Discontinued Medications Albuterol (Albut/Ipratrop 3mg/0.5mg Neb 3 Ml Vial) 3 ml NEB NOW STA; Protocol Stop: 08/12/23 17:10 Last Admin: 08/12/23 17:27 Dose: 3 ml Documented By: ANNA Sodium Chloride (Nss) 500 mls @ 999 mls/hr IV .Q31M [facility] Stop: 08/12/23 17:15 Last Infusion: 08/12/23 17:58 Dose: Infused Documented By: Admin: 08/12/23 16:35 Dose: 999 mls/hr Documented By: ANNA Sodium Chloride (Nss) 500 mls @ 999 mls/hr IV .Q31M ONE Stop: 08/12/23 17:39 Last Infusion: 08/12/23 17:58 Dose: Infused Documented By: Admin: 08/12/23 17:26 Dose: 999 mls/hr Documented By: ANNA Azithromycin 500 mg/ Dextrose 255 mls @ 127.5 mls/hr IV NOW STA Stop: 08/12/23 19:36 Last Infusion: 08/12/23 21:10 Dose: Infused Documented By: Admin: 08/12/23 18:42 Dose: 127.5 mls/hr Documented By: ANNA Magnesium Sulfate/Dextrose (Magnesium Sulfate / D5w) 1 gm in 100 mls @ 200 mls/hr IV Q30M [facility] Stop: 08/12/23 18:36 Last Infusion: 08/12/23 19:12 Dose: Infused Documented By: Admin: 08/12/23 18:42 Dose: 200 mls/hr Documented By: Infusion: 08/12/23 18:34 Dose: Infused Documented By: Admin: 08/12/23 18:04 Dose: 200 mls/hr Documented By: ANNA Sodium Chloride (Nss) 500 mls @ 999 mls/hr IV .Q31M ONE Stop: 08/12/23 18:27 Last Infusion: 08/12/23 18:34 Dose: Infused Documented By: Admin: 08/12/23 18:03 Dose: 999 mls/hr Documented By: ANNA Ioversol (Optiray 320 125ml) 117 ml IV ONCE ONE Stop: 08/12/23 17:53 Last Admin: 08/12/23 17:53 Dose: 117 ml Documented By: CECILE Methylprednisolone (Methylprednisolone 125 Mg/2 Ml Vial) 125 mg IV NOW STA Stop: 08/12/23 17:58 Last Admin: 08/12/23 18:03 Dose: 125 mg Documented By: ANNA Potassium Chloride (Potassium Chloride Crtab 20 Meq Tabcr) 20 meq PO NOW STA Stop: 08/12/23 21:09 Last Admin: 08/12/23 22:12 Dose: 20 meq Documented By: [facility] Imaging Data Radiologist's Impression: Chest X-Ray 08/12/23 16:41 XR chest 1V portable HISTORY: Sepsis COMPARISON: Chest 03/26/2022. Outside hospital PET/CT 05/18/2023. FINDINGS: No pneumothorax. No pleural effusions. Small linear scarlike densities at the left lung base. A 13 mm nodular density within the left upper lobe, unchanged. The heart is normal in size. No acute fractures identified. Degenerative changes within the shoulders. IMPRESSION: 1. No acute process within the chest. 2. Stable 13 mm left upper lobe nodule. ACT 112: Negative or not required by law. Electronically signed by: Rohan Sutton M.D. 08/12/2023 5:41 PM Chest CTA 08/12/23 17:09 CHEST CTA for PULMONARY ARTERIES CT DOSE: 899.59 mGy.cm HISTORY: PE, hypoxia, back pain TECHNIQUE: Multiaxial CT images of the chest were performed following the intravenous administration of contrast to evaluate the pulmonary arteries. 3D/Maximal intensity projection images were also obtained. Sagittal and coronal reformations were also reviewed. A dose lowering technique was utilized adhering to the principles of ALARA. COMPARISON STUDY: Outside hospital PET CT 05/18/2023. FINDINGS: No acute fractures within the chest. Moderate to severe degenerative disc disease within the thoracic spine. No pneumothorax. No pleural effusions. Bibasilar patchy and linear densities favor subsegmental atelectasis or scarring. There is an 11 mm irregular nodule within left upper lobe again noted. This is similar to the prior study. Emphysema. Stable 4 mm irregular density within the right lung apex image 205. A few punctate calcified granulomas within the lungs. Mild central bronchial wall thickening. Small amount of mucoid material within the bronchus intermedius and left mainstem bronchus. There is 1.8 cm right thyroid nodule. There are few punctate calcified granulomas within the visualized liver and spleen. Prior cholecystectomy. Bilateral adrenal gland nodules remain stable. No significant central canal narrowing within the thoracic spine by CT technique. Normal esophagus. The heart is normal in size. No pericardial effusion. No mediastinal or hilar lymphadenopathy. Calcified mediastinal and hilar lymph nodes. Normal caliber thoracic aorta with no evidence for a dissection. Mild dilated main pulmonary artery measuring 3.4 cm in diameter. This suggests pulmonary arterial hypertension. No filling defects within the pulmonary arteries to suggest a pulmonary embolus. IMPRESSION: 1. No evidence for a pulmonary embolus. 2. Emphysema. 3. Stable 11 mm irregular nodule within the left upper lobe. 4. Small amount of mucoid material within the bronchus intermedius and left mainstem bronchus. 5. Patchy and linear bibasilar densities favor subsegmental atelectasis or scarring. 6. Stable bilateral adrenal gland nodules. 7. Pulmonary arterial hypertension. ACT 112: Negative or not required by law. Electronically signed by: Rohan Sutton M.D. 08/12/2023 6:14 PM Discharge Plan Visit Data Chief Complaint: Dizziness Stated Complaint: DIZZY/LIGHTHEADED, TROUBLE STANDING, NAUSEA ED Provider: [place] Discharge Problem: Acute respiratory failure with hypoxia and hypercarbia, Hypomagnesemia, JOSEPHINE (acute kidney injury), Acute exacerbation of chronic obstructive pulmonary disease Patient Disposition: Admitted As Inpatient Discharge Instructions Interventions: ED Discharge Assessment Last Done: 08/12/23 20:56
[2023-08-12 17:23] LABS: Albumin Level 4.3 gm/dl (3.4-5.0); BUN Creatinine Ratio 12.2 (10-20); Bilirubin Direct 0.1 mg/dl (0-0.2); Bilirubin,Total 0.5 mg/dl (0.2-1.0); Calcium 8.6 mg/dl (8.6-10.3); Creatinine Clr Calc Pharmacy 30.2 ml/min; Est GFR (African American) 31.3 ml/min; Magnesium 1.1 mg/dl (1.7-2.4); Potassium 3.4 mmol/L (3.5-5.1); Total Protein 6.6 gm/dl (6.0-8.3)
[2023-08-12] MEDS: SODIUM CHLORIDE 0.9% 500 ML IV ONE ×2 (17:26→18:03)
[2023-08-12] MEDS: ALBUT/IPRATROP 3MG/0.5MG NEB 3 ML VIAL NEB STA (17:27)
[2023-08-12 17:29] LABS: Troponin I High Sensitivity 6.5 pg/ml (0-14)
[2023-08-12 17:30] LABS: Base Excess VBG 0.8 mEq/L; HCO3 VBG 29 mmol/L; Oxygen Saturation VBG 61.6 %; PCO2 VBG 62 mmHg (38-50); PO2 VBG 31 mmHg; pH VBG 7.28 (7.36-7.41)
--- NOTE | 2023-08-12 17:42 | XRay Report ---
XR chest 1V portable HISTORY: Sepsis COMPARISON: Chest 03/26/2022. Outside hospital PET/CT 05/18/2023. FINDINGS: No pneumothorax. No pleural effusions. Small linear scarlike densities at the left lung bas e. A 13 mm nodular density within the left upper lobe, unchanged. The heart is normal in size. No acu te fractures identified. Degenerative changes within the shoulders. IMPRESSION: 1. No acute process within the chest. 2. Stable 13 mm left upper lobe nodule. ACT 112: Negative or not required by law. Electronically signed by: Rohan Sutton M.D. 08/12/2023 5:41 PM
[2023-08-12] MEDS: OPTIRAY 320 125ml IV ONE (17:53)
[2023-08-12] MEDS: methylPREDNISolone 125 MG/2 ML VIAL IV STA (18:03)
[2023-08-12] MEDS: MAGNESIUM SULFATE / D5W 1 GM/100 ML BAG IV SCH ×2 (18:04→21:34)
--- NOTE | 2023-08-12 18:17 | CT Scan Report ---
CHEST CTA for PULMONARY ARTERIES CT DOSE: 899.59 mGy.cm HISTORY: PE, hypoxia, back pain TECHNIQUE: Multiaxial CT images of the chest were performed following the intravenous administration of contrast to evaluate the pulmonary arteries. 3D/Maximal intensity projection images were also obta ined. Sagittal and coronal reformations were also reviewed. A dose lowering technique was utilized a dhering to the principles of ALARA. COMPARISON STUDY: Outside hospital PET CT 05/18/2023. FINDINGS: No acute fractures within the chest. Moderate to severe degenerative disc disease within th e thoracic spine. No pneumothorax. No pleural effusions. Bibasilar patchy and linear densities favor subsegmental atelectasis or scarring. There is an 11 mm irregular nodule within left upper lobe again noted. This is similar to the prior study. Emphysema. Stable 4 mm irregular density within the right lung apex image 205. A few punctate calcified granulomas within the lungs. Mild central bronchial wa ll thickening. Small amount of mucoid material within the bronchus intermedius and left mainstem bron chus. There is 1.8 cm right thyroid nodule. There are few punctate calcified granulomas within the vi sualized liver and spleen. Prior cholecystectomy. Bilateral adrenal gland nodules remain stable. No s ignificant central canal narrowing within the thoracic spine by CT technique. Normal esophagus. The h eart is normal in size. No pericardial effusion. No mediastinal or hilar lymphadenopathy. Calcified m ediastinal and hilar lymph nodes. Normal caliber thoracic aorta with no evidence for a dissection. Mi ld dilated main pulmonary artery measuring 3.4 cm in diameter. This suggests pulmonary arterial hyper tension. No filling defects within the pulmonary arteries to suggest a pulmonary embolus. IMPRESSION: 1. No evidence for a pulmonary embolus. 2. Emphysema. 3. Stable 11 mm irregular nodule within the left upper lobe. 4. Small amount of mucoid material within the bronchus intermedius and left mainstem bronchus. 5. Patchy and linear bibasilar densities favor subsegmental atelectasis or scarring. 6. Stable bilateral adrenal gland nodules. 7. Pulmonary arterial hypertension. ACT 112: Negative or not required by law. Electronically signed by: Rohan Sutton M.D. 08/12/2023 6:14 PM
[2023-08-12] MEDS: AZITHROMYCIN 500 MG in DEXTROSE 5% 250 ML IV STA (18:42)
[2023-08-12 18:43] LABS: Adenovirus PCR Not Detected (NotDetected); Bordetella parapertussis PCR Not Detected (NotDetected); Bordetella pertussis PCR Not Detected (NotDetected); Chlamydia pneumoniae PCR Not Detected (NotDetected); Coronavirus 229E PCR Not Detected (NotDetected); Coronavirus CoV-2 (COVID19)PCR Not Detected (NotDetected); Coronavirus HKU1 PCR Not Detected (NotDetected); Coronavirus NL63 PCR Not Detected (NotDetected); Coronavirus OC43PCR Not Detected (NotDetected); Human Metapneumovirus PCR Not Detected (NotDetected); Influenza A PCR Not Detected (NotDetected); Influenza B PCR Not Detected (NotDetected); Mycoplasma pneumoniae PCR Not Detected (NotDetected); Parainfluenza Virus 1 PCR Not Detected (NotDetected); Parainfluenza Virus 2 PCR Not Detected (NotDetected); Parainfluenza Virus 3 PCR Not Detected (NotDetected); Parainfluenza Virus 4 PCR Not Detected (NotDetected); Respiratory Syncytial VirusPCR Not Detected (NotDetected); Rhinovirus/Enterovirus PCR Not Detected (NotDetected)
--- NOTE | 2023-08-12 18:58 | History & Physical Report ---
Date of Service August 12, 2023 Assessment & Plan (1) Acute hypoxic respiratory failure: (2) Hypotension: (3) JOSEPHINE (acute kidney injury): (4) Lactic acidosis: (5) Hypomagnesemia: (6) Hyponatremia: (7) Hypokalemia: (8) DM type 2 (diabetes mellitus, type 2): (9) COPD (chronic obstructive pulmonary disease): (10) Ileostomy present: Plan 67-year-old female who presented to the ED with dizziness and pain between shoulder blades that started around 1 and half hours prior to presentation. Patient was hypoxic and hypotensive on presentation which improved with IV fluids, supplemental oxygen, nebs and steroids. Acute hypoxic hypercarbic respiratory failure-initially on 6 L of NC, now on BiPAP. CT chest with no PE but mucoid impaction. ABG noted, ABG pending. Does have history of COPD. Received nebs, steroids, azithromycin in the ED. continue BiPAP and supplemental oxygen as needed. Wean down as tolerated. COPD with mild exacerbation-continue prednisone, nebs, azithromycin. Send sputum if able to expectorate. CT chest with mucoid impaction-will start on vest therapy. If unable to clear, consult pulmonology. Hypotension-improved with IV, 90s to 100 during encounter.. Continue gentle IVF. She does states she has low normal blood pressure at baseline in 80s and 90s. Hypomagnesemia-repleted IV, recheck in a.m. Hypokalemia-repleted, recheck in a.m. Hyponatremia-chronic, sodium 129, suspect some volume depletion and given IVF. Will recheck in AM. Lactic acidosis-resolved with IVF. WBC normal, Pro-Catarino normal, no fever, CT chest with no pneumonia. This could be related to hypoxia, rather than sepsis. Patient clinically looks stable. Hold off antibiotics for now except for azithromycin for COPD exacerbation. Follow-up on culture results. Consider empiric antibiotics if fever or clinical decompensation JOSEPHINE- Creatinine 1.89, received contrast in the ED for CT chest. Patient was also taking Mobic at home. Avoid all NSAIDs. Continue IVF. Monitor renal function. Medications adjusted for renal function. If renal function does not improve, consider nephrology consult Tobacco abuse-still smoking 10 cigarettes a day. Declines significant patch. 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 Under surveillance. Restless leg syndrome-continue ropinirole Chronic pain-on MS Contin, p.o. Dilaudid, Mobic, Flexeril, gabapentin. Will discontinue Mobic and decrease dose of all medications given low BP, hypoxia and JOSEPHINE. Adjust further as indicated once improvement in these parameters Diabetes mellitus type 2-hold metformin. Continue SSI, carb controlled diet. Adjust as indicated. 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 She reported being in usual state of health talking with friends at a friend's house when she developed a aforementioned symptoms for which she presented to ED. she was found to be hypotensive and hypoxic on presentation and required 6 L of nasal cannula initially. Labs showed JOSEPHINE with hypokalemia, hypomagnesia hyponatremia. Normal WBC, normal Pro-Catarino, elevated lactate which resolved with IVF. VBG with some hypercarbia. She had received IV fluids, IV magnesium, IV steroids, nebs, and azithromycin and is on BiPAP prior to my encounter. She felt fine with results and of all symptoms during encounter. No more dizziness or back pain. She is awake alert and conversing fine. Her boyfriend was at bedside. Denies any fever, chills, chest pain, shortness of breath, nausea or vomiting. She does have COPD but continues to smoke about 10 cigarettes a day, however she declines nicotine patch. Denies alcohol or drug abuse. States she was diagnosed with left upper lobe lung cancer and completed radiation treatment about 8 months ago. She also states her blood pressure is usually low in the 80s and 90s at baseline. She denies any decrease in oral intake, vomiting or increased ileostomy output, however she does take Mobic daily for pain along with other pain medications. Allergies Allergy/AdvReac Type Severity Reaction Status Date / Time adhesive Allergy Intermediate SWELLING/RA Verified 08/12/23 18:21 Home Medications Medication Instructions Recorded Confirmed Type aspirin 81 mg tablet,delayed 81 mg PO QAM 02/26/19 08/12/23 History release atorvastatin 20 mg tablet 20 mg PO HS 02/26/19 08/12/23 History bupropion HCl 150 mg 24 hr tablet, 150 mg PO QAM 02/26/19 08/12/23 History extended release (Wellbutrin XL) fluticasone propionate 50 2 spray intranasal QAM PRN Allergy 02/26/19 08/12/23 History mcg/actuation nasal Symptoms spray,suspension gabapentin 600 mg tablet 600 mg PO TID 02/26/19 08/12/23 History metformin 1,000 mg tablet 1,000 mg PO BIDM 02/26/19 08/12/23 History pantoprazole 40 mg tablet,delayed 40 mg PO QAM 02/26/19 08/12/23 History release (Protonix) trazodone 50 mg tablet 50 mg PO HS 02/26/19 08/12/23 History albuterol sulfate 90 mcg/actuation 2 puff inhalation Q4H PRN 03/31/19 08/12/23 History aerosol inhaler Shortness Of Breath Or Wheezing hydromorphone 4 mg tablet 4 mg PO Q4H PRN pain 07/27/19 08/12/23 History (Dilaudid) cyclobenzaprine 10 mg tablet 10 mg PO TID Muscle Spasm 11/17/19 08/12/23 History ondansetron HCl 8 mg tablet 8 mg PO Q8H PRN Nausea 05/29/20 08/12/23 History prochlorperazine maleate 10 mg 10 mg PO Q6H PRN Constipation 05/29/20 08/12/23 History tablet (Compazine) fluticasone fur. 200 mcg-umeclid 1 inh inhalation DAILY 03/02/22 08/12/23 History 62.5 mcg-vilant 25 mcg inhalat.powder (Trelegy Ellipta) meloxicam 15 mg tablet 15 mg PO DAILY 03/02/22 08/12/23 History propranolol 20 mg tablet 20 mg PO BID 03/02/22 08/12/23 History ropinirole 3 mg tablet 3 mg PO HS 03/02/22 08/12/23 History furosemide 40 mg tablet 40 mg PO DAILY PRN Edema 03/26/22 08/12/23 History morphine 15 mg tablet,extended 15 mg PO QAM 08/12/23 08/12/23 History release Past Med/Surg History Medical History Ileostomy present Essential tremor Chronic back pain HLD (hyperlipidemia) DM type 2 (diabetes mellitus, type 2) COPD (chronic obstructive pulmonary disease) Insomnia GERD (gastroesophageal reflux disease) DJD (degenerative joint disease) Diabetic neuropathy Bilateral hands and feet Squamous cell carcinoma of anal canal Diagnosed 05/05/2019. Invasive, moderately differientiated, P-16 positive, Positive margin. s/p ileostomy, completed mitomycin x1 dose on 06/14/2019 and Xeloda along with radiation treatment between 06/09/2019-07/28/2019 Breast infection in female Hx of chronic left breast infections for 20 years Heart murmur Hyperlipemia Degenerative disc disease Fibromyalgia Constipation Bleeding hemorrhoids History of hemorrhoids Low back pain with right-sided sciatica multiple pain management injections with Dr. Archer Hip pain, chronic right Bursitis, scapulohumeral Surgical History S/P trigger finger release Status post trigger finger release History of shoulder surgery right 2009, ;left-2012. History of hernia repair History of breast surgery nipple areola reconstruction, s/p multiple infections History of neck surgery excision of lipoma-08/23/17 History of cholecystectomy 08/17/16 History of arthroscopy of right knee History of arthroplasty of left knee History of rectal abscess with I &D 05/05/19 History of colonoscopy 2010, 2016 History of breast biopsy 1994, 2001 History of hysterectomy age 37 History of hemorrhoidectomy 02/17/19 Family History Grandmother (Maternal) , in 60's Lung cancer Brother No problems noted. Sister No problems noted. Daughter No problems noted. Son No problems noted. 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 Feels Safe at Home: Yes Childhood Exposure to Second-Hand Smoke: Yes caffeine: Yes (mountain dew daily 2 liters a day) Dental Care, Regularly: No Assistive Devices: Oxygen - Continuous Review of Systems Review of Systems: All systems reviewed & are unremarkable except as noted in Subjective Physical Exam Physical Exam: General: Lying comfortably in bed, not in distress, on BiPAP HEENT: EOMI, ZACKARY Chest: Fair breath sounds bilaterally with some wheezes CVS: Regular, normal heart sound Abdomen: Soft, non tender, not distended, ileostomy noted with liquid output, normal bowel sounds Neuro: Awake, alert, oriented, conversing well, non focal Extremities: No edema Results & Data Results & Data Vital Signs (Past 12 Hours) Vital Signs Temp Pulse Pulse Resp BP BP Pulse Ox 08/12/23 18:10 93 H 14 99 08/12/23 17:00 101 H 16 97/61 L 92 08/12/23 16:45 108 H 20 91/59 L 81 L 08/12/23 16:34 112 H 08/12/23 16:22 36.8 C 113 H 18 70/45 L 84 L O2 Del Method O2 Flow Rate FiO2 08/12/23 18:10 30 08/12/23 17:00 Nasal Cannula 2 08/12/23 16:45 Room Air 08/12/23 16:34 08/12/23 16:22 Room Air Laboratory Results Short CBC 08/12/23 Range/Units 16:36 WBC 8.04 (4.8-10.8) K/ul Hgb 13.0 (12.0-16.0) g/dl Hct 38.1 (37.0-47.0) % Plt Count 228 (130-400) K/uL BMP 08/12/23 16:36 Sodium 129 L Potassium 3.4 L Chloride 89 L Carbon Dioxide 30 BUN 23 Creatinine 1.89 H Glucose 158 H Calcium 8.6 Liver Function 08/12/23 Range/Units 16:36 Total Bilirubin 0.5 (0.2-1.0) mg/dl Direct Bilirubin 0.1 (0-0.2) mg/dl AST 10 L (13-39) U/L ALT 10 (7-52) U/L Alkaline Phosphatase 63 (34-104) U/L Albumin 4.3 (3.4-5.0) gm/dl Diagnostic Findings Chest X-Ray 08/12/23 16:41 XR chest 1V portable HISTORY: Sepsis COMPARISON: Chest 03/26/2022. Outside hospital PET/CT 05/18/2023. FINDINGS: No pneumothorax. No pleural effusions. Small linear scarlike densities at the left lung base. A 13 mm nodular density within the left upper lobe, unchanged. The heart is normal in size. No acute fractures identified. Degenerative changes within the shoulders. IMPRESSION: 1. No acute process within the chest. 2. Stable 13 mm left upper lobe nodule. ACT 112: Negative or not required by law. Electronically signed by: Rohan Sutton M.D. 08/12/2023 5:41 PM Chest CTA 08/12/23 17:09 CHEST CTA for PULMONARY ARTERIES CT DOSE: 899.59 mGy.cm HISTORY: PE, hypoxia, back pain TECHNIQUE: Multiaxial CT images of the chest were performed following the intravenous administration of contrast to evaluate the pulmonary arteries. 3D/Maximal intensity projection images were also obtained. Sagittal and coronal reformations were also reviewed. A dose lowering technique was utilized adhering to the principles of ALARA. COMPARISON STUDY: Outside hospital PET CT 05/18/2023. FINDINGS: No acute fractures within the chest. Moderate to severe degenerative disc disease within the thoracic spine. No pneumothorax. No pleural effusions. Bibasilar patchy and linear densities favor subsegmental atelectasis or scarring. There is an 11 mm irregular nodule within left upper lobe again noted. This is similar to the prior study. Emphysema. Stable 4 mm irregular density within the right lung apex image 205. A few punctate calcified granulomas within the lungs. Mild central bronchial wall thickening. Small amount of mucoid material within the bronchus intermedius and left mainstem bronchus. There is 1.8 cm right thyroid nodule. There are few punctate calcified granulomas within the visualized liver and spleen. Prior cholecystectomy. Bilateral adrenal gland nodules remain stable. No significant central canal narrowing within the thoracic spine by CT technique. Normal esophagus. The heart is normal in size. No pericardial effusion. No mediastinal or hilar lymphadenopathy. Calcified mediastinal and hilar lymph nodes. Normal caliber thoracic aorta with no evidence for a dissection. Mild dilated main pulmonary artery measuring 3.4 cm in diameter. This suggests pulmonary arterial hypertension. No filling defects within the pulmonary arteries to suggest a pulmonary embolus. IMPRESSION: 1. No evidence for a pulmonary embolus. 2. Emphysema. 3. Stable 11 mm irregular nodule within the left upper lobe. 4. Small amount of mucoid material within the bronchus intermedius and left mainstem bronchus. 5. Patchy and linear bibasilar densities favor subsegmental atelectasis or scarring. 6. Stable bilateral adrenal gland nodules. 7. Pulmonary arterial hypertension. ACT 112: Negative or not required by law. Electronically signed by: Rohan Sutton M.D. 08/12/2023 6:14 PM Code Status & VTE Plan VTE Prophylaxis Plan VTE Prophylaxis will be ordered: Yes
[2023-08-12] MEDS ORDERED: GLUCOSE 10 TAB/TUBE PO PRN (20:52)
[2023-08-12] MEDS ORDERED: GLUCAGON FOR INJ 1 MG VIAL SQ PRN (20:52)
[2023-08-12] MEDS ORDERED: DEXTROSE 50% 50 ML SYRINGE IV PRN (20:52)
[2023-08-12] MEDS ORDERED: GLUCOSE 40% GEL 15 GM TUBE PO PRN (20:52)
[2023-08-12] MEDS ORDERED: CARBOHYDRATES FOR HYPOGLYCEMIA PO PRN (20:52)
[2023-08-12] MEDS ORDERED: methylPREDNISolone 1000 MG/16 ML IV SCH (21:00)
[2023-08-12 21:15] LABS: Allen Test Pos (Pos); Base Excess ABG -2.3 mEq/L (-9-1.8); HCO3 ABG 25 mmol/L (19-24); Oxygen Saturation ABG 98.8 % (90-95); PCO2 ABG 52 mmHg (35-46); PO2 ABG 88 mmHg (80-95); pH ABG 7.29 (7.35-7.45)
[2023-08-12] MEDS: BUDESONIDE 0.5 MG/2 ML VIAL (PULMICORT) NEB SCH (21:25)
[2023-08-12] MEDS: FORMOTEROL 20 MCG/2 ML VIAL NEB SCH (21:26)
[2023-08-12] MEDS: ALBUT/IPRATROP 3MG/0.5MG NEB 3 ML VIAL NEB SCH (21:26)
[2023-08-12] MEDS: methylPREDNISolone 40 MG in SYRINGE 0 ML IV SCH (21:34)
[2023-08-12] MEDS: INSULIN ASPART PER UNIT CHARGE SC SCH (21:34)
[2023-08-12] MEDS: SODIUM CHLORIDE 0.9% 1,000 ML IV SCH (21:36)
[2023-08-12] MEDS: HEPARIN SOD 5,000 UNIT/0.5 ML VIAL SQ SCH (22:12)
[2023-08-12] MEDS: GABAPENTIN 300 MG CAP PO SCH (22:12)
[2023-08-12] MEDS: POTASSIUM CHLORIDE CRTAB 20 MEQ TABCR PO STA (22:12)
[2023-08-12] MEDS: ATORVASTATIN 20 MG TAB PO SCH (22:13)
[2023-08-12] MEDS: CYCLOBENZAPRINE HCL 5 MG TAB PO SCH (22:13)
[2023-08-12] MEDS: rOPINIRole HCL 1 MG TABLET PO SCH (22:13)
[2023-08-12] MEDS: traZODone HCL 50 MG TAB PO SCH (22:13)
[2023-08-12] MEDS: HYDROmorphone HCL 2 MG TAB PO PRN (22:31)
[2023-08-12 23:12] LABS: Appearance Urine Clear (Clear); Bilirubin Urine Negative (Negative); Blood Urine Negative (Negative); Color Urine Yellow; Glucose Urine UA Negative (Negative); Ketones Urine Negative (Negative); Leukocyte Esterase Urine Negative (Negative); Nitrite Urine Negative (Negative); Protein Urine Negative (Negative); Specific Gravity Urine 1.027 (1.000-1.030); Urobilinogen Urine Negative (Negative)
[2023-08-13 06:07] LABS: Hematocrit (blood only) 32.8 % (37.0-47.0); Hemoglobin 11.3 g/dl (12.0-16.0); Mean Corpuscular Hemoglobin 30.1 pg (25.0-34.0); Mean Corpuscular Hgb Conc 34.5 g/dL (32.0-36.0); Mean Corpuscular Volume 87.5 fL (80.0-100.0); Mean Platelet Volume 9.1 fL (9.4-12.4); Platelet Count 181 K/uL (130-400); RDW Coefficient of Variation 13.1 % (11.5-14.5); RDW Standard Deviation 41.6 fL (36.4-46.3); Red Blood Count 3.75 M/uL (4.20-5.40); White Blood Count 8.29 K/ul (4.8-10.8)
[2023-08-13 06:23] LABS: Calcium 8.2 mg/dl (8.6-10.3); Creatinine Clr Calc Pharmacy 39.1 ml/min; Est GFR (African American) 42.4 ml/min; Est GFR (Non-African American) 36.6 ml/min; Magnesium 2.7 mg/dl (1.7-2.4); Phosphorus 2.3 mg/dl (2.5-4.9); Potassium 3.5 mmol/L (3.5-5.1)
[2023-08-13] MEDS: GABAPENTIN 600 MG TAB PO SCH (07:20)
[2023-08-13 07:24] LABS: Estimated Average Glucose 157 mg/dl; Hemoglobin A1C 7.1 % (4.5-5.6)
[2023-08-13] MEDS: MoRPHine SULFATE CR 15 MG TABCR PO SCH (08:39)
[2023-08-13] MEDS: AZITHROMYCIN 250 MG TAB PO SCH (08:40)
[2023-08-13] MEDS: buPROPion XL 150 MG TABCR PO SCH (08:40)
[2023-08-13] MEDS: ASPIRIN 81 MG ECTAB PO SCH (08:40)
[2023-08-13] MEDS: PANTOprazole 40 MG TAB PO SCH (08:40)
[2023-08-13] MEDS: FLUTICASONE PROPIONATE NA SPR 16 GM BTL SCH (08:40)
[2023-08-13] MEDS: POT PHOSPHATE MONOBASIC W/ SOD TAB PO SCH (10:07)
[2023-08-13] MEDS: POTASSIUM CHLORIDE CRTAB 20 MEQ TABCR PO STA (10:07)
[2023-08-13] MEDS: SODIUM CHLOR 7% 4 ML NEB NEB SCH (11:04)
[2023-08-13] MEDS: ACETYLCYSTEINE 20% INHAL SOLN 4ML ***DISPENSED BY RESP. INH SCH (11:05)
--- NOTE | 2023-08-13 15:23 | Hospitalist Progress Note ---
Date of Service August 13, 2023 Assessment & Plan (1) Acute hypoxic respiratory failure: (2) Hypotension: (3) JOSEPHINE (acute kidney injury): (4) Lactic acidosis: (5) Hypomagnesemia: (6) Hyponatremia: (7) Hypokalemia: (8) DM type 2 (diabetes mellitus, type 2): (9) COPD (chronic obstructive pulmonary disease): (10) Ileostomy present: Plan 67-year-old lady with PMH of lung cancer s/p radiation treatment 01/2023, SCC of anal canal s/p chemoradiation and diverting ileostomy 2020, COPD, current tobacco abuse, T2DM, chronic back pain, RLS, GERD presented to the ED with dizziness and pain between shoulder blades that started around 1 and half hours prior to presentation. Patient was hypoxic and hypotensive on presentation which improved with IV fluids, supplemental oxygen, nebs and steroids. She is being managed for the following: Acute hypoxic hypercarbic respiratory failure- ABG noted. Does have history of COPD. initially on 6 L of NC at presentation, now on 2-3 L (uses 2L at home). CT chest with no PE but mucoid impaction. Added mucinex and hypertonic saline nebs, pt reports now making mucus. Received nebs, steroids, azithromycin in the ED. continue BiPAP and supplemental oxygen as needed. Wean down as tolerated. f//u blood and sputum cx. COPD with mild exacerbation- continue prednisone, nebs, azithromycin. f/u sputum cx 08/12. CT chest with mucoid impaction-will start on vest therapy. Clearing mucus well per pt. Hypotension-improved with IV, 90s to 100 at presentation. Continue gentle IVF due to josephine. She does states she has low normal blood pressure at baseline in 80s and 90s. Electrolyte abnormalitieshypokalemia/hypomagnesemia: Monitor and replete. Hyponatremia-chronic, sodium 129, suspect some volume depletion and given IVF. Follow labs in AM. Lactic acidosis-resolved with IVF. WBC normal, Pro-Catarino normal, no fever, CT chest with no pneumonia. This could be related to hypoxia, rather than sepsis. Patient clinically looks stable. Hold off antibiotics for now except for azithromycin for COPD exacerbation. Follow-up on culture results. Consider empiric antibiotics if fever or clinical decompensation Acute kidney injury: Presentation creatinine 1.89, received contrast in the ED for CT chest. Patient was also taking Mobic at home. Avoid all NSAIDs. Continue IVF at decreased rate, creatinine improving today. Monitor renal function. Medications adjusted for renal function. If renal function does not improve, consider nephrology consult Tobacco abuse-still smoking 10 cigarettes a day. Declines nicotine patch. Recommend quitting given her COPD and recent lung cancer, she states she is trying. Pt would like nicotine gum, ordered. History of CHASTITY adenocarcinoma [id number], stage IA2 dxed 11/2022 s/p radiation treatment completed in Jan 2023. Under surveillance. Restless leg syndrome-continue ropinirole Chronic pain-on MS Contin, p.o. Dilaudid, Mobic, Flexeril, gabapentin. Will discontinue Mobic and decrease dose of all medications given low BP, hypoxia and JOSEPHINE. Adjust further as indicated once improvement in these parameters Diabetes mellitus type 2-hold metformin. Continue SSI, carb controlled diet. Adjust as indicated. DVT prophylaxis-subcu heparin Full code Disposition-PCU on telemetry Admission and Anticipated Discharge Date Admission Date: August 12, 2023 Subjective Patient was seen and examined at bedside. Patient was lying in bed, on 2 L oxygen via nasal cannula, resting comfortably, NAD. Patient reports improvement in her dizziness and upper back pain. Patient reports cough at baseline, reports improving shortness of breath, denies headache or chest pain. Patient reports eating okay and having stable ileostomy output. Physical Exam Physical Exam: General: Lying comfortably in bed, not in distress, on 2L O2 via NC. HEENT: EOMI, ZACKARY Chest: Fair breath sounds bilaterally with occasional wheezes CVS: Regular, normal heart sound Abdomen: Soft, non tender, not distended, ileostomy noted with semi solid output, normal bowel sounds Neuro: Awake, alert, oriented, conversing well, non focal Extremities: No edema Results & Data Results & Data Vital Signs (Past 12 Hours) Vital Signs Temp Pulse Pulse Resp BP Pulse Ox O2 Del Method 08/13/23 15:15 36.7 C 94 H 17 94/55 L 92 Nasal Cannula 08/13/23 15:05 95 H 17 96 Room Air 08/13/23 11:07 87 16 96 Nasal Cannula 08/13/23 10:45 36.9 C 90 18 104/69 97 Nasal Cannula 08/13/23 08:00 Nasal Cannula 08/13/23 08:00 98 H 08/13/23 07:44 36.6 C 96 H 20 96/60 L 91 Nasal Cannula 08/13/23 07:00 91 H 17 98 Room Air O2 Flow Rate 08/13/23 15:15 3 08/13/23 15:05 2 08/13/23 11:07 2 08/13/23 10:45 2 08/13/23 08:00 3 08/13/23 08:00 08/13/23 07:44 08/13/23 07:00
[2023-08-13] MEDS ORDERED: NICOTINE POLACRILEX 2 MG GUM MT PRN (15:33)
[2023-08-14 07:40] LABS: Hematocrit (blood only) 31.9 % (37.0-47.0); Hemoglobin 10.7 g/dl (12.0-16.0); Mean Corpuscular Hemoglobin 29.4 pg (25.0-34.0); Mean Corpuscular Hgb Conc 33.5 g/dL (32.0-36.0); Mean Corpuscular Volume 87.6 fL (80.0-100.0); Mean Platelet Volume 8.9 fL (9.4-12.4); Platelet Count 202 K/uL (130-400); RDW Coefficient of Variation 13.8 % (11.5-14.5); RDW Standard Deviation 44.1 fL (36.4-46.3); Red Blood Count 3.64 M/uL (4.20-5.40); White Blood Count 14.22 K/ul (4.8-10.8)
[2023-08-14 07:47] LABS: Calcium 8.3 mg/dl (8.6-10.3); Potassium 3.6 mmol/L (3.5-5.1)
[2023-08-14 08:04] LABS: BUN Creatinine Ratio 12.5 (10-20); Creatinine Clr Calc Pharmacy 59.8 ml/min; Est GFR (African American) 70.9 ml/min; Est GFR (Non-African American) 61.2 ml/min; Phosphorus 2.9 mg/dl (2.5-4.9)
[2023-08-14] MEDS: methylPREDNISolone 40 MG in SYRINGE 0 ML IV SCH (09:30)
[2023-08-14] MEDS: CEFEPIME 2,000 MG in SYRINGE 0 ML IV SCH (09:33)
--- NOTE | 2023-08-14 16:26 | Hospitalist Progress Note ---
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 Patient was hypoxic and hypotensive on presentation which improved with IV fluids, supplemental oxygen, nebs and steroids. She is being managed for the following: Acute hypoxic hypercarbic respiratory failure- Possible bronchitis ABG noted. Does have history of COPD. initially on 6 L of NC at presentation, now on 2-3 L (uses 2L at home). CT chest with no PE but mucoid impaction. c/w mucinex and hypertonic saline nebs, pt reports expectorating. continue BiPAP and supplemental oxygen as needed. Wean down as tolerated. f//u blood and sputum cx. Sp Cx has prelim growth - f/u final c/s, cefepime added 08/13. Pt has been made aware. COPD with mild exacerbation- continue steroid, nebs, azithromycin. f/u sputum cx 08/12. CT chest with mucoid impaction-c/w vest therapy. Clearing mucus well per pt. Iv solu M to prednisone 08/13. Bloody mucosal Output ND: h/o scc anal canal. Has diverting ileostomy. Patient had bloody mucosal output ND /, patient was worried that she had similar output prior to diagnosis of her cancer. GI consulted. Heparin subcu held. Monitor H&H. Hypotension-improved with IV, 90s to 100 at presentation. Continue gentle IVF due to josephine. She does states she has low normal blood pressure at baseline in 80s and 90s. Electrolyte abnormalitieshypokalemia/hypomagnesemia: Monitor and replete. Hyponatremia-chronic, sodium 129, stable/improving. Follow labs in AM. Lactic acidosis-resolved with IVF. WBC normal, Pro-Catarino normal, no fever, CT chest with no pneumonia. This could be related to hypoxia, rather than sepsis. Patient clinically looks stable. Follow-up on culture results. Consider empiric antibiotics if fever or clinical decompensation Acute kidney injury: Presentation creatinine 1.89, received contrast in the ED for CT chest. Patient was also taking Mobic at home. Avoid all NSAIDs. s/p ivf, JOSEPHINE resolved. Monitor renal function. Tobacco abuse-still smoking 10 cigarettes a day. Declines nicotine patch. Recommend quitting given her COPD and recent lung cancer, she states she is trying. Pt would like nicotine gum, ordered. 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 Under surveillance. Restless leg syndrome-continue ropinirole Chronic pain-on MS Contin, p.o. Dilaudid, Mobic, Flexeril, gabapentin. Will discontinue Mobic and c/w others as able. Diabetes mellitus type 2-hold metformin. Continue SSI, carb controlled diet. Adjust as indicated. DVT prophylaxis-subcu heparin Full code Disposition-PCU on telemetry Admission and Anticipated Discharge Date Admission Date: August 12, 2023 Subjective Patient was seen and examined at bedside. Patient was lying in bed, on RA, resting comfortably, NAD. No dizziness or upper back pain. Patient reports bloody mucosal output ND, and is worried. GI consulted. Heparin subcu on hold. Patient reports eating okay and moving bowels okay. Patient updated about sputum culture findings, cefepime has been added, will await culture and sensitivity. Patient reports cough at baseline, reports improving shortness of breath, denies headache or chest pain. Patient reports eating okay and having stable ileostomy output. Physical Exam Physical Exam: General: Lying comfortably in bed, not in distress, on RA HEENT: EOMI, ZACKARY Chest: Fair breath sounds bilaterally , no wheezes CVS: Regular, normal heart sound Abdomen: Soft, non tender, not distended, ileostomy noted with semi solid output, normal bowel sounds Neuro: Awake, alert, oriented, conversing well, non focal Extremities: No edema Results & Data Results & Data Vital Signs (Past 12 Hours) Vital Signs Temp Pulse Resp BP Pulse Ox O2 Del Method O2 Flow Rate 08/14/23 15:29 36.9 C 103 H 20 125/76 89 L Room Air 08/14/23 14:59 Room Air 08/14/23 14:58 102 H 16 93 Room Air 08/14/23 11:18 36.6 C 97 H 19 127/82 93 Room Air 08/14/23 11:00 95 H 17 96 Nasal Cannula 2 08/14/23 07:15 36.6 C 96 H 19 127/77 90 Nasal Cannula 08/14/23 06:55 98 H 16 98 Nasal Cannula 2
[2023-08-14] MEDS: GABAPENTIN 300 MG CAP PO SCH (20:34)
[2023-08-15] MEDS: MELATONIN 3 MG TAB PO PRN (00:45)
--- OUTSIDE RECORDS SUMMARY | 2023-08-15 04:00 | External Medical Summary | Summary of Care ---
Author Name Unknown Organization [facility] Address [address] [place] [address] Phone [phone] Care Team Providers Care Promotion Specialist Name Role Phone Sukh Holman MD Primary Care Provider [phone] Reason for Visit * Reason Onset Date Comments Medication Refill 07/31/2023 Encounter Details Date Type Department Care Team (Late st Contact Info) Description 07/31/2023 [facility]ill [facility] [address] [facility] [place] [address] Sukh Holman MD [address] [place] [address] Routine medical exam*; Postnasal drip; Encounter for long-term (current) use of medications; Type 2 diabetes mellitus with hemoglobin A1c goal of less than 8.0% ([facility]) Allergies Active Allergy Reactions Criticality Noted Date Comments Adhesive Tape Itching,Rash 07/29/2016 Paper tape is fine documented as of this encounter (statuses as of 08/02/2023) Medications Medication Sig Dispensed Refills Start Date End Date Status Blood Glucose Monitoring Suppl (ONE TOUCH ULTRA SYSTEM KIT) W/DEVICE KITIndications:DM type 2 goal A1C below 7.5 Use up to four times a day as directed. Dx: 250.00 1 Kit 0 01/02/2015 Active aspirin 81 MG chewable tabletIndications:Ty pe 2 diabetes mellitus with hemoglobin A1c goal of less than 7.5% (HCC) Take 1 Tab by mouth daily. with food. 100 Tab 5 12/18/2016 Active ONETOUCH DELGIO LANCETS 33G MISC Tests up to four times a day. DX code: 250.00 100 Each 11 05/22/2019 Active Nystatin Powder Apply to affected area three times per day until healed. 1 Each 1 03/24/2021 Active OneTouch Ultra In Vitro Strip (Glucose Blood) USE UP TO 4 TIMES DAILY DIRECTED 400 Strip 4 08/25/2021 Active valACYclovir HCl 1 GM Oral Tablet (Valtrex) Take 2 Tablets by mouth in the morning and 2 Tablets before bedtime. for cold sores. 4 Tablet 11 06/29/2022 Active Furosemide 40 MG Oral Tablet (Lasix)Indications:E tessie Take 1 Tablet by mouth in the morning. May take an additional tablet as needed for increased edema.. 120 Tablet 3 07/20/2022 Active Meloxicam 15 MG Oral TabletIndications:Fi bromyalgia TAKE 1 TABLET BY MOUTH EVERY DAY FOR PAIN 90 Tablet 3 10/12/2022 Active Trelegy Ellipta 200-62.5-25 MCG/ACT Aerosol Powder Breath Activated (Fluticasone-Umeclid inium-Vilanterol) INHALE 1 PUFF BY MOUTH IN THE MORNING 180 Each 1 02/07/2023 Active rOPINIRole HCl 3 MG Oral Tablet TAKE 1 TABLET BY MOUTH EVERYDAY AT BEDTIME 90 Tablet 3 03/26/2023 Active Albuterol Sulfate HFA 108 (90 Base) MCG/ACT Inhalation Aerosol SolutionIndications: Shortness of breath,Acute bronchospasm INHALE 2 PUFFS BY MOUTH EVERY 4 HOURS NEEDED FOR SORE THROAT OR WHEEZING. 18 g 5 04/15/2023 Active Alendronate Sodium 70 MG Oral Tablet (Fosamax)Indications :weekly on sundays TAKE 1 TABLET (70 MG) BY MOUTH ONCE A WEEK 12 Tablet 1 04/15/2023 Active Prochlorperazine Maleate 10 MG Oral Tablet (Compazine)Indicatio ns:Anal cancer (HCC) TAKE 1 TABLET BY MOUTH EVERY 6 HOURS NEEDED FOR NAUSEA 60 Tablet 2 04/26/2023 Active traZODone HCl 50 MG Oral Tablet (Desyrel)Indications :Persistent insomnia TAKE 1 TABLET BY MOUTH EVERYDAY AT BEDTIME 90 Tablet 1 05/06/2023 Active metFORMIN HCl 1000 MG Oral Tablet (Glucophage)Indicati ons:DM type 2 causing renal disease (HCC) TAKE 1 TABLET BY MOUTH TWICE A DAY WITH MORNING MEAL AND EVENING MEAL 180 Tablet 1 05/17/2023 Active Propranolol HCl 20 MG Oral Tablet (Inderal)Indications :Essential tremor TAKE 1 TABLET BY MOUTH IN THE MORNING AND BEFORE BEDTIME 180 Tablet 3 05/18/2023 Active Atorvastatin Calcium 20 MG Oral Tablet (Lipitor)Indications :Dyslipidemia, goal LDL below 100 TAKE 1 TABLET BY MOUTH EVERY DAY 90 Tablet 3 06/06/2023 Active Fluticasone Propionate 50 MCG/ACT Nasal Suspension (Flonase)Indications :Postnasal drip USE 2 SPRAY(S) IN EACH NOSTRIL ONCE DAILY 48 g 1 06/15/2023 Active Ondansetron HCl 8 MG Oral Tablet (Zofran)Indications: Anal cancer (HCC) Take 1 Tablet by mouth every 8 hours as needed for Nausea. 30 Tablet 3 06/14/2023 Active Cyclobenzaprine HCl 10 MG Oral Tablet (Flexeril)Indication s:Spasm of muscle TAKE 1 TABLET BY MOUTH THREE TIMES A DAY 270 Tablet 3 06/15/2023 Active Pantoprazole Sodium 40 MG Oral Tablet Delayed Release (Protonix)Indication s:Reflux esophagitis TAKE 1 TABLET BY MOUTH EVERY DAY IN THE MORNING 90 Tablet 1 06/15/2023 Active Fluticasone Propionate 50 MCG/ACT Nasal Suspension (Flonase)Indications :Postnasal drip SPRAY 2 SPRAYS INTO EACH NOSTRIL ONCE DAILY 48 mL 5 06/15/2023 Active Additional Information Patient not taking.Reported on 06/29/2023 Gabapentin 600 MG Oral Tablet (Neurontin)Indicatio ns:Diabetic polyneuropathy associated with type 2 diabetes mellitus (HCC) TAKE 1 TAB BY MOUTH IN MORNING, AT NOON, AND BEFORE BEDTIME, FOR A TOTAL AMOUNT OF THREE TIMES A DAY 90 Tablet 3 06/15/2023 Active buPROPion HCl ER (XL) 150 MG Oral Tablet Extended Release 24 Hour (Wellbutrin XL)Indications:Fibro myalgia,Depression TAKE 1 TABLET BY MOUTH EVERY DAY 90 Tablet 1 06/16/2023 Active DULoxetine HCl 30 MG Oral Capsule Delayed Release Particles (Cymbalta)Indication s:Fibromyalgia TAKE 2 CAPSULES BY MOUTH IN THE MORNING 180 Capsule 3 07/06/2023 Active Morphine Sulfate ER 15 MG Oral Tablet Extended Release (Ms Contin)Indications:A nal cancer (HCC),Anal squamous cell carcinoma (HCC) Take 1 Tablet by mouth in the morning and 1 Tablet before bedtime. Max 45 tablets/month.. 60 Tablet 0 08/02/2023 Active HYDROmorphone HCl 4 MG Oral Tablet (Dilaudid)Indication s:Anal squamous cell carcinoma (HCC) Take 1 Tablet by mouth every 4 hours as needed for Pain, Moderate. 60 Tablet 0 08/02/2023 Active documented as of this encounter (statuses as of 08/02/2023) Active Problems Problem Noted Date Diagnosed Date Malignant neoplasm of upper lobe, left bronchus or lung 05/11/2023 Anal squamous cell carcinoma 05/11/2023 Type 2 diabetes mellitus wit h other diabetic kidney complication 05/11/2023 Cerebral atrophy 05/11/2023 Atherosclerosis of both carotid arteries 024 Atherosclerosis of aorta 05/11/2023 Primary malignant neoplasm of left upper lobe of lung 12/21/2022 Cancer Staging:Clinical stage from 12/21/2022:Stage IA2(cT1b, cN0, cM0) - Signed by London Quinn MD on 12/21/2022 Overweight (BMI 25.0-29.9) 08/03/2022 History of squamous cell carcinoma 07/23/2022 Overview: Anal Canal Medical home patient encounter 03/17/2022 Ileostomy present 03/06/2022 Aortic valve sclerosis 04/15/2021 COPD, group B, by GOLD 2017 classification 06/17 Overview: Per COPD GOLD Classification Iron deficiency anemia due to chronic blood loss 09/07/2019 Type 2 diabetes mellitus wit h hemoglobin A1c goal of less than 8.0% 02/08/2019 Osteoporosis without current pathological fractu re 10/05/2018 Essential tremor 06/02/2016 HTN, goal below 130/80 06/17/2015 Overview: Per HTN Protocol #27. Migraine with aura and witho ut status migrainosus, not intractable 01/25/2013 Dyslipidemia 03/27/2009 Overview: Per Lipid Taxonomy. Dyslipidemia, goal LDL below 70 03/18/1998 Overview: Per Lipid Taxonomy. Tobacco use disorder 10/04/1997 Fibromyalgia 10/04/1997 Gastroesophageal reflux disease with esophagitis 10/04/1997 RLS (restless legs syndrome) documented as of this encounter (statuses as of 08/02/2023) Resolved Problems Problem Noted Date Diagnosed Date Resolved Date Hospital-acquired pneumonia 03/09/2022 03/16/2022 Caries 03/06/2022 03/16/2022 Dental abscess 03/06/2022 03/16/2022 Perianal abscess 03/06/2022 03/16/2022 Postoperative hemorrhage 03/06/202208/2021 Toothache 03/06/2022 03/16/2022 HLD (hyperlipidemia) 03/06/2022 022 Acute respiratory distress s yndrome (ARDS) due to severe acute respiratory syndrome coronavirus 2 (SARS-CoV-2) 03/04/2022 03/16/2022 Metabolic alkalosis 03/04/2022 03/16/20 Respiratory alkalosis 03/04/20222021 Hypochloremia 03/04/2022 03/16/2022 Hypophosphatemia 03/04/2022 03/16/2022 Pneumonia due to COVID-19 virus 03/04/2022 03/16/2022 Small bowel obstruction 03/03/2022 12/0 08/2021 Parastomal hernia 03/03/2022 03/16/2022 Hypokalemia 03/03/2022 03/16/2022 Encephalopathy acute 03/03/2022 022 Acute on chronic respiratory failure with hypoxia and hypercapnia 03/02/2022 03/16/2022 History of creation of ostomy 11/25/2020 03/16/2022 Anal squamous cell carcinoma 11/25/2020 03/16/2022 Food insecurity 11/18/2020 09/09/2021 Overview: Per [facility] Protocol 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 023 Osteoarthritis of finger of left hand 06/19/2020 11/22/2020 Anal cancer 06/01/2019 11/25/2020 Primary squamous cell carcinoma of anal canal 05/05/19 20 07/23/2022 Rectal abscess 05/03/2019 11/22/2020 Closed T11 spinal fracture 02/25/2018 0 11/07/2018 Bilateral low back pain 02/25/201805/14 Controlled substance agreement terminated 02/27/2016 08/03/2022 Overview: Per 05/2018 urine drug screen Tobacco use disorder 11/01/2015 019 Low back pain with left-sided sciatica 10/21/2015 06/07/2018 Skin lesion 10/21/2015 06/07/2018 Vertigo 07/24/2015 12/18/2016 Esophageal reflux 01/25/2013 03/16/2022 Moderate COPD (chronic obstr uctive pulmonary disease) 09/12/2012 06/20/2020 Overview: Based on PFT 08/22/12 TERMINATED MEDICATION USAGE AGREEMENT 02/09/2012 02/27/2016 Overview: Violated med use agreement for opioids on 02/09/12 (had been on signed agreement since 08/20/2009). NO NARCOTICS in this patient please. Benzo refills (on temazepam for sleep) through PCP only - close monitoring, pt did not violate benzos on UDS. HTN, GOAL BELOW 140/80 11/30/201107/17 Overview: Per HTN Protocol #27. MEDICATION USE AGREEMENT 08/20/2009 Overview: Was for chronic pain meds and benzos - see new entry dated 02/09/12 for update HTN, GOAL BELOW 130/80 05/08/200912/02 Overview: Per HTN Taxonomy. Family hx-breast malignancy 04/15/2009 02/08/2019 Torn rotator cuff 04/15/2009 08/20/2009 Carpal tunnel syndrome 04/15/200912/18 HTN, goal below 140/90 01/21/200905/08 Overview: Per HTN Taxonomy. Insomnia 01/21/2009 02/08/2019 Overview: ICD-10 update of inactive term Uncontrolled type 2 diabetes mellitus with diabetic neuropathy, without long-term current use of insulin 04/18/1999 02/08/2019 Overview: ICD-10 update of inactive term DIAB RENAL MANIF ADULT 01/07/199906/18 INFLAM DISEASE OF BREAST 05/22/199811/2016 Tension headache 10/04/1997 12/18/2016 Menopause 10/04/1997 12/18/2016 Edema 12/18/2016 Diabetic polyneuropathy asso ciated with type 2 diabetes mellitus 08/03/2022 Lactic acidosis 03/16/2022 documented as of this encounter (statuses as of 08/02/2023) Immunizations Name Administration Dates Next Due COVID-19 mRNA, LNP-s, No Pre serve, 2-Dose Series ([facility]) 10/03/2020,09/12/2020 H1N1 2008 Influenza, IM 05/03/2009 Hepatitis B, 20+ yrs 02/21/2013,09/11/2011,08/11 MMR - Measles/Mumps/Rubella Vaccine 09/05/2011 Meningococcal Conjugate Vacc ine (Menactra/Menveo) 11/14/2009 Pneumococcal Polysaccharide PPV23 (Pneumovax) 02/25/2021,03/04/1999 Season Influenza, Cell Cultu re, 18+ Yrs, With Preserv (Flucelvax) 02/21/2013 Seasonal Influenza, PF, 6 M & above, IM , (FluLaval or Fluzone) 01/27/2021,01/22/2020,01/17/2019,01/13 Seasonal Influenza, Quadriva lent Hd (Fluzone Hd) 01/08/2023,12/29/2021 Seasonal Influenza, Quadriva lent, No Preserve, IM 11/25/2016,01/06/2016,04/19/2015 Seasonal Influenza, Split, I IV3, With Preserve, Inj 02/28/2014,02/04/2012,03/06/2011,02/20,01/14/2009 TDAP (age 11 and older)(Adacel) 07/17/2011 Varicella Zoster Vaccine (Adult) 10/10/2015 Zoster Vaccine Recombinant (Shingrix) 01/22/2020 ,05/01/2019 documented as of this encounter Social History Tobacco Use Types Packs/Day Years Used Date Smoking Tobacco: Every Day Cigarettes 0.5 43 Smokeless Tobacco: Never Alcohol Use Standard Drinks/Week Comments No 0 (1 standard drink = 0.6 oz pur e alcohol) PHQ-2 Answer Date Recorded PHQ Adult Total Score 2 06/24/2023 Hunger Vital Sign Answer Date Recorded Within the past 12 months, y ou worried that your food would run out before you got the money to buy more. Never true 06/24/19 24 Within the past 12 months, t he food you bought just didn't last and you didn't have money to get more. Never true 06/24/2023 Sex and Gender Information Value Date Recorded Sex Assigned at Female 07/01/2018 3:37 PM EDT Gender Identity Female 07/01/2018 3:37 PM EDT Sexual Orientation Straight 07/01/2018 3: 37 PM EDT Job Start Date Occupation Industry Not on file Not on file Not on file documented as of this encounter Functional Status Functional Status Response Date of Assess ment Are you deaf or do you have serious difficulty h earing? No 03/03/2022 Are you blind or do you have serious difficulty seeing, even when wearing glasses? No 03/03/2022 Do you have serious difficul ty walking or climbing stairs? (5 years old or older) No 03/03/2022 Do you have difficulty dress ing or bathing? (5 years old or older) No 03/03/2022 Because of a physical, menta l, or emotional condition, do you have difficulty doing errands alone such as visiting a doctor s office or shopping? (15 years old or older) No 03/03/20 Cognitive Status Response Date of Assessm ent Because of a physical, menta l, or emotional condition, do you have serious difficulty concentrating, remembering, or making decisions? (5 years old or older) No 03/03/2022 documented as of this encounter Miscellaneous Notes * Telephone Encounter - Vane Goznalez, [facility] - 08/02/2023 11:47 AM EDT Refused Prescriptions: Disp Refills Fluticasone Propionate 50 MCG/ACT Nasal Dc*48 g 1 Sig: USE 2 SPRAY(S) IN EACH NOSTRIL ONCE DAILYRefused By: VANE GONZALEZ for Refusal: Too soon---- documented in this encounter Plan of Treatment Upcoming Encounters Date Type Department Care Team (Late st Contact Info) Description 08/10/2023 2:15 PM EDT Office Visit Hematology/Oncology [facility] [address] [place] [phone] Marciano Pagan MD [address] [facility] [place] [address] 08/24/2023 2:00 PM EDT Office Visit Cardiology, [facility] [address] [facility] [place] [address] Rosa Elena Ko PA-C [address] [facility] [place] [address] 09/16/2023 11:45 AM EDT Appointment Radiology, [address] [address] 09/21/2023 2:00 PM EDT Office Visit General Surgery, [facility] [address] [facility] [address] Rosa Elena Faith MD [address] [place] [address] 09/23/2023 11:30 AM EDT Office Visit Pharmacy, [facility] [address] [facility] [place] [address] [facility] Jamia [address] [place] [address] 05/11/2024 2:00 PM EST Office Visit Care at Home [address] [place] [address] Awa Hurd PA-C [address] [place] [address] Scheduled Orders Name Type Priority Associated Diagnoses Orde r Schedule VITAMIN B12 Lab Routine Routine medical exam Encounter for long-term (current) use of medications Expected: 08/16/2023 (Approximate), Expires: 08/01/2024 HEMOGLOBIN A1C Lab Routine Routine medical exam Encounter for long-term (current) use of medications Type 2 diabetes mellitus with hemoglobin A1c goal of less than 8.0% (HCC) Expected: 08/16/2023 (Approximate), Expires: 08/02/2024 Scheduled Procedures Name Priority Associated Diagnoses Date/Ti me COLONOSCOPY FLEXIBLE PROXIMAL DIAGNOSTIC Recall History of anal cancer Health Maintenance Due Date Last Done Comments DISCUSS TOBACCO CESSATION (REFER TO SMARTSET #2593) 1955 Alpha-1 Antitrypsin 11/29/1973 Diabetic Eye Exam 01/21/2021 01/22/2020, , 01/10/2016, Additional history exists DTaP,Tdap,and Td Vaccines (2 - Td or Tdap) 07/16/2021 07/17/2011, 05/11/2000 Pneumococcal Vaccine: 65+ Years (2 of 2 - PCV) 02/25/2022 02/25/2021, 03/04/1999 Diabetic Foot Exam 09/09/2022 09/09/2021, 0 05/28/2020, 03/21/2019, Additional history exists COVID-19 Vaccine ( season) 2022 01/28/2022, 09/12/2021, 04/09/2021, Additional history exists HbA1c 02/12/2023 08/12/2022, 03/12, 09/09/2021, Additional history exists B-12 03/25/2023 03/25/2022, 02/10, 11/01/2019, Additional history exists DXA Scan 05/13/2023 05/13/2021, 04/2021, 06/14/2018, Additional history exists Mammogram 08/20/2023 08/19/2022, 08/10, 03/10/2021, Additional history exists Albumin/Creatinine Ratio 04/02/2024 023, 09/09/2021, 05/28/2020, Additional history exists O2 ASSESSMENT COMPLETED IN PAST YEAR FOR COPD 05/11/2024 05/11/2023 Depression Screening 06/23/2024 06/24/2023 GFR 06/28/2024 06/29/2023, 08/10, 08/12/2022, Additional history exists COLONOSCOPY-EVERY 5 YRS AGES 18-100 08/23/2025 08/23/2020, 08/23/2020, 06/24/2016, Additional history exists MENINGOCOCCAL (MENACTRA/MENVEO) Aged Out 11/14/2009, 11/14/2009 No longer eligibl e based on patient's age to complete this topic Hepatitis B Completed 02/21/2013, 04/2011, 08/12/2011 VITAMIN D LEVEL ONCE IN A LIFETIME-USE SMARTSET# [id number] Completed 01/23/2019, 08/10/2017, 07/06/2016, Additional history exists Zoster Vaccines Completed 01/22/2020, 04/13, 10/10/2015 Colonoscopy Discontinued 08/23/2020, 08/10, 06/24/2016, Additional history exists Colorectal Cancer Screening Discontinued Influenza Vaccine (FLU shot) Completed 01/08/2023, 12/29/2021, 01/27/2021, Additional history exists Cologuard Discontinued Fecal Occult Blood Test Discontinued GARDASIL-HPV IMMUNIZATION SERIES Aged Out No longer eligible based on patient's age to complete this topic Sigmoidoscopy Discontinued documented as of this encounter Medical Devices Implanted Type Area Professor/Nurse Anesthetist Device Identifier Shelf Expiration Date Model / Serial / Lot Headless Compression Screw Implanted:Qty: 1 on 07/26/2020 by South Mtz MD at OR [facility] Left: Finger [id number] H / / Description:left middle fing er Ascesion Silicone Pip Finger Implant Implanted:Qty: 1 on 07/26/2020 by South Mtz MD at [facility] Left: Finger 06/09/2022 [id number] / / [id number] Description:middle finger documented as of this encounter Visit Diagnoses Diagnosis Routine medical exam- Primary Routine general medical examination at a health care facility Postnasal drip Encounter for long-term (current) use of medications Encounter for long-term (current) use of other medications Type 2 diabetes mellitus with hemoglobin A1c goal of less than 8.0% ([facility]) documented in this encounter Advance Directives Latest Code Status on File Code Status Date Activated Date Inactivated Comments Full Code 03/02/2022 10:56 PM 03/16/2022 10:25 PM Question Answer Comments Discussion of Advance Direct yesi occurred with: Patient Code Status History Code Status Date Activated Date Inactivated Comments Full Code 07/30/2021 10:43 AM 07/30/2021 7:11 PM Question Answer Comments Discussion of Advance Directives occurred with: Not Discussed Does the patient have a Living Will? No Does the patient have Health Care Power of Scalp Specialist? No Full Code 12/09/2020 5:24 PM 12/11/2020 6:33 PM Question Answer Comments Discussion of Advance Directives occurred with: Not Discussed Full Code 09/30/2020 10:25 AM 10/02/2020 4:27 PM This order reflects the patients wishes and were consensually agreed upon. Question Answer Comments Discussion of Advance Directives occurred with: Not Discussed Does the patient have a Living Will? No Does the patient have Health Care Power of Scalp Specialist? No Full Code 02/17/2019 10:07 AM 02/17/2019 4:30 PM This order reflects the patients wishes and were consensually agreed upon. Care Teams Promotion Specialist Relationship Specialty Start Date End Date Sukh Holman MD [address] [place] [id number] PCP - General Family Medicine 07/26/20 documented as of this encounter
--- OUTSIDE RECORDS SUMMARY | 2023-08-15 04:00 | External Medical Summary | Summary of Care ---
Author Name Unknown Organization [facility] Address [address] [place] [address] Phone [phone] Care Team Providers Care Field Tech Name Role Phone Sukh Holman MD Primary Care Provider [phone] Reason for Visit * Reason Comments Follow Up 6 month follow up Encounter Details Date Type Department Care Team (Late st Contact Info) Description 08/10/2023 2:15 PM EDT Office Visit Hematology/Oncology [facility] [address] [place] [phone] Marciano Pagan MD [address] [place] [address] History of lung cancer*; History of rectal or anal cancer; Encounter for follow-up examination after completed treatment for malignant neoplasm; Rectal pain Allergies Active Allergy Reactions Criticality Noted Date Comments Adhesive Tape Itching,Rash 07/29/2016 Paper tape is fine documented as of this encounter (statuses as of 08/10/2023) Medications Medication Sig Dispensed Refills Start Date [...] food. 100 Tab 5 12/18/2016 Active ONETOUCH XAVIER LANCETS 33G MISC Tests up to four [...] as of this encounter (statuses as of 08/10/2023) Active Problems Problem Noted Date Diagnosed Date [...] as of this encounter (statuses as of 08/10/2023) Resolved Problems Problem Noted Date Diagnosed Date [...] as of this encounter (statuses as of 08/10/2023) Immunizations Name Administration Dates Next Due COVID-19 mRNA, LNP-s, No Pre serve, 2-Dose Series (Pfizer) 10/03/2020,09/12/2020 H1N1 2009 Influenza, IM 05/03/2009 Hepatitis B, 20+ yrs [...] Day Cigarettes 0.5 43 Smokeless Tobacco: Never Tobacco Cessation:Ready to Q uit: Not Asked; Counseling Given: Not Answered Alcohol Use Standard Drinks/Week Comments No 0 [...] on file documented as of this encounter Last Filed Vital Signs Vital Sign Reading Time Taken Comments Blood Pressure 122/74 08/10/2023 2:00 PM EDT Pulse 99 08/10/2023 2:00 PM EDT Temperature 36.7 C (98 F) 08/10/2023 2:00 PM EDT Respiratory Rate - - Oxygen Saturation 90% 08/10/2023 2:00 PM EDT Inhaled Oxygen Concentration - - Weight 82.4 kg (181 lb 9.6 oz) 08/10/2023 2:00 P M EDT Height - - Body Mass Index 31.78 12/09/2022 12:05 PM EDT documented in this encounter Functional Status Functional Status Response [...] No 03/03/2022 documented as of this encounter Progress Notes * Marciano Pagan MD - 08/10/2023 2:15 PM EDT Hematology/Oncology Outpatient Clinic note [facility] [address] Name: Emiliana Donis Date: 09/06/2020 CHIEF COMPLAINT: Emiliana Donis is a 67 year old female patient here today for f/u visit. 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 -HIV negative. she completed mitomycin x1 dose on 06/14/2019 and Xeloda along with radiation treatment between 06/09/2019-07/28/2019. Iron deficiency anemia she received intravenous iron the form Venofer x4 in September 2019. 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 November 2022 --> left upper lobe adenocarcinoma clinically T1b N0 M0, S/P SBRT to left lung lesion completed on 01/13/2023. Given in 5 fractions. CURRENT TREATMENT: Presently she is under observation, Pain management: - MS Contin to 15 mg in the morning and 15 mg in the evening, hydromorphone for the breakthrough pain. But she has cut down MS Contin to once a day and she takes hydromorphone 3 times a day. DIAGNOSTIC WORKUP: She says that the she had the intermittent blood in the stool, some rectal discomfort going on somewhere in 01/2019, she was seen by Dr. Acosta for dose symptoms, underwent hemorrhoidectomy on 02/17/2019 and unrelated I&D for perirectal abscess. She continued to have rectal bleeding, discharge, local discomfort, she was seen at [facility] on 2 occasions had imaging studies as follows: CT scan of the abdomen and pelvis on 03/16/2019: -no liver lesion. -S/P cholecystectomy noted -bilateral hypodense at adrenal masses measuring 5.3 cm on the left and 3.6 cm on the right side, -there is no CT evidence of perirectal abscess. -No intra-abdominal lymphadenopathy noted -S/P hysterectomy noted. CT scan of the pelvis done on 2018) 1. Significantly thickened and enhancing lower rectum and anus with 2 small discrete fluid collections possibly within the anal wall. While this could be infectious or inflammatory with 2 small abscesses, a neoplastic etiology is of primary concern especially given the possible invasion of the right levator ani. The small fluid collections may still represent small abscesses whether or not this is neoplastic. She was seen by Dr. Acosta, underwent biopsy of the rectal mass on 05/05/2019: -final pathology --> invasive squamous cell carcinoma moderate differentiated, P-16 positive. Positive margin. Presently she is on Percocet for the symptomatic treatment of rectal discomfort. OTHER IMPORTANT HISTORY: - Diabetes mellitus -mild diabetic neuropathy -DJD, she is on meloxicam -GERD -osteoporosis, she is on Fosamax -insomnia, she is on trazodone. HISTORY OF PRESENT ILLNESS: She has come the clinic for the follow-up, she has colostomy, has possible rectovaginal fistula, , she does complain of rectal discomfort, also chronic back pain, she is on MS Contin 15 mg in the morning and 15 mg in the evening, and hydromorphone for the breakthrough pain. No rectal bleeding,, no nausea, no vomiting, continues to smoke, nowadays she smokes about 5 cigarettes in a day, gained about 20 lb, current weight around 181 lb Has some mild tingling and numbness of extremities which is there even before the diagnosis of the cancer, no headache, no leg edema, has some mild abdominal discomfort. Ambulates well, ECOG PS 1. She is on Lasix on PRN basis. Leg edema has improved. Past Medical History: Diagnosis Date BENIGN HYPERTENSION 01/21/2009 Carpal tunnel syndrome right DIABETES, UNCOMPLICATED, TYPE II 04/18/1999 Diabetic polyneuropathy associated with type 2 diabetes mellitus ([facility]) DM type 2 goal A1C below 7.5 04/18/1999 Dyslipidemia, goal LDL below 100 03/27/2009 Per Lipid Taxonomy. Family hx-breast malignancy 04/15/2009 Fibromyalgia Insomnia, unspecified 01/21/2009 Lump or mass in breast h/o multiple breast biopsies - benign Moderate COPD (chronic obstructive pulmonary disease) ([facility]) 09/12/2012 Based on PFT 08/22/12 Osteoarthrosis involving multiple sites but not generalized Reflux esophagitis 10/04/1997 RLS (restless legs syndrome) Tubal without intrauterine 1980 Type 2 diabetes mellitus with hemoglobin A1c goal of less than 7.0% ([facility]) 02/08/2019 Social History Socioeconomic History Marital status: Single Spouse name: Not on file Number of children: Not on file Years of education: Not on file Highest education level: Not on file Occupational History Not on file Social Needs Financial resource strain: Not on file Food insecurity Worry: Often true Inability: Sometimes true Transportation needs Medical: Not on file Non-medical: Not on file Tobacco Use Smoking status: Current Every Day Smoker Packs/day: 1.00 Years: 43.00 Pack years: 43.00 Types: Cigarettes Smokeless tobacco: Never Used Substance and Sexual Activity Alcohol use: No Drug use: No Sexual activity: Not on file Lifestyle Physical activity Days per week: Not on file Minutes per session: Not on file Stress: Not on file Relationships Social connections Talks on phone: Not on file Gets together: Not on file Attends anabaptism service: Not on file Active member of club or organization: Not on file Attends meetings of clubs or organizations: Not on file Relationship status: Not on file Intimate partner violence Fear of current or ex partner: Not on file Emotionally abused: Not on file Physically abused: Not on file Forced sexual activity: Not on file Other Topics Concern Not on file Social History Narrative Not on file Vaping/E-Cigarette Use Vaping/E-Cigarette Use Never User Vaping/E-Cigarette Substances Vaping/E-Cigarette Devices Past Surgical History: Procedure Laterality Date ANAL FISTULA SURG, TRANS/SUPRA/EXTRASPHINCT N/A 12/09/2020 TREATMENT OF ANAL FISTULA COMPLEX performed by Rosa Elena Faith MD at OR [facility] ANORECTAL EXAM ,DIAG, REQUIRING ANESTHESIA N/A 02/17/2019 ANORECTAL EXAM UNDER ANESTHESIA performed by Jaime Acosta MD at OR [facility] ANORECTAL EXAM ,DIAG, REQUIRING ANESTHESIA N/A 05/01/2020 ANORECTAL EXAM UNDER ANESTHESIA performed by Rosa Elena Faith MD at OR [facility] ANORECTAL EXAM ,DIAG, REQUIRING ANESTHESIA N/A 09/26/2020 ANORECTAL EXAM UNDER ANESTHESIA performed by Rosa Elena Faith MD at OR [facility] ANORECTAL EXAM ,DIAG, REQUIRING ANESTHESIA N/A 12/09/2020 ANORECTAL EXAM UNDER ANESTHESIA performed by Rosa Elena Faith MD at OR [facility] ANORECTAL EXAM ,DIAG, REQUIRING ANESTHESIA 07/30/2021 ANORECTAL EXAM UNDER ANESTHESIA performed by Rosa Elena Faith MD at OR [facility] ANORECTAL EXAM ,DIAG, REQUIRING ANESTHESIA N/A 12/04/2021 ANORECTAL EXAM UNDER ANESTHESIA performed by Rosa Elena Faith MD at OR [facility] ARTHROCENT ASP AND/OR INJ SMALL JX /BURSA W/O US Left 02/26/2017 ARTHROCENTESIS AND/OR INJECTION SMALL JOINT BURSA performed by Otis Choudhary Jr., MD at OR [facility] BREAST BIOPSY Right 1994 benign BREAST BIOPSY Right 1994 benign BREAST BIOPSY Left 2001 benign x2- multiple abcesses involving nipple. nipple was removed. COLONOSCOPY, DIAGNOSTIC (RECTUM) 09/10/2010 wnl repeat 5-10 yrs COLONOSCOPY, DIAGNOSTIC (RECTUM) 06/24/2016 Tortuous colon/COLONOSCOPY FLEXIBLE PROXIMAL DIAGNOSTIC performed by Marquise Saenz MD at ENDOSCOPY [facility] COLONOSCOPY, DIAGNOSTIC (RECTUM) 08/23/2020 Colonic fistula, diverticulosis, repeat 5 yrs / COLONOSCOPY FLEXIBLE PROXIMAL DIAGNOSTIC performed by Marquise Saenz MD at ENDOSCOPY [facility] DESTRUCTION OF ANAL LESION(S), SIMPLE, SURGICAL EXCISION N/A 05/01/2020 DESTRUCTION LESION ANUS SIMPLE EXCISION performed by Rosa Elena Faith MD at OR [facility] DESTRUCTION OF ANAL LESION(S), SIMPLE, SURGICAL EXCISION N/A 09/26/2020 DESTRUCTION LESION ANUS SIMPLE EXCISION performed by Rosa Elena Faith MD at OR [facility] DESTRUCTION OF ANAL LESION(S), SIMPLE, SURGICAL EXCISION 07/30/2021 DESTRUCTION LESION ANUS SIMPLE EXCISION performed by Rosa Elena Faith MD at OR [facility] DESTRUCTION OF ANAL LESION(S), SIMPLE, SURGICAL EXCISION N/A 12/04/2021 DESTRUCTION LESION ANUS SIMPLE EXCISION performed by Rosa Elena Faith MD at OR [facility] DRAINAGE OF RECTAL ABSCESS, UNDER ANESTHESIA N/A 05/05/2019 INCISION AND DRAINAGE TRANSANAL INTRAMURAL ABSCESS performed by Jaime Acosta MD at [facility] HEMORRHOIDECTOMY, INTERNAL, 2 + COLUMNS 02/17/2019 HEMORRHOIDECTOMY EXTERNAL AND INTERNAL COMPLEX performed by Jaime Acosta MD at OR [facility] ILEOSTOMY OR JEJUNOSTOMY,LAPAROSC,NON-TUBE N/A 09/30/2020 LAPAROSCOPIC ILEOSTOMY OR JEJUNOSTOMY NON TUBE performed by Rosa Elena Faith MD at OR [facility] INJECT DX/THER SUBSTANCE INTERLAMINAR CERVICAL/THORACIC W IMAGE GUIDE 12/15/2018 INJECTION SPINE LUMBAR CERVICAL OR THORACIC performed by Colman Yevgeniy Archer DO at OR [facility] INJECTION LUMBAR/SACRAL 01/21/2016 INJECTION SPINE LUMBAR OR SACRAL performed by Gerhard Archer DO at OR [facility] IR BIOPSY 11/26/2022 KNEE ARTHROSCOPY/SURGERY Left KNEE ARTHROSCOPY/SURGERY right L-/S-SPINE PARAVERTEBRAL FACET INJ,1 LEVEL 10/31/2013 L-/S-SPINE PARAVERTEBRAL FACET INJ,1 LEVEL performed by Sharif Ugner DO at OR [facility] L-/S-SPINE PARAVERTEBRAL FACET INJ,1 LEVEL 02/14/2016 L-/S-SPINE PARAVERTEBRAL FACET INJ, 1 LEVEL performed by Gerhard Archer DO at OR [facility] L-/S-SPINE PARAVERTEBRAL FACET INJ,1 LEVEL 02/24/2016 L-/S-SPINE PARAVERTEBRAL FACET INJ, 1 LEVEL performed by Gerhard Archer DO at OR [facility] L-/S-SPINE PARAVERTEBRAL FACET INJ,1 LEVEL 10/25/2017 L-/S-SPINE PARAVERTEBRAL FACET INJ, 1 LEVEL performed by Gerhard Archer DO at OR [facility] L-/S-SPINE PARAVERTEBRAL FACET INJ,1 LEVEL 11/04/2017 L-/S-SPINE PARAVERTEBRAL FACET INJ, 1 LEVEL performed by Gerhard Archer DO at OR [facility] L-/S-SPINE PARAVERTEBRL FACET INJ,2 LEVELS 10/31/2013 L-/S-SPINE PARAVERTEBRL FACET INJ,2 LEVELS performed by Sharif Unger DO at [facility] LAPAROSCOPY; CHOLECYSTECTOMY N/A 08/17/2016 08/17/2016 LAPAROSCOPIC CHOLECYSTECTOMY performed by Jaime Acosta MD at OR [facility] MUSCLE-SKIN FLAP, TRUNK N/A 12/09/2020 MUSCLE MYOCUTANEOUS OR FASCIOCUTANEOUS FLAP TRUNK performed by Anup Grimes MD at [facility] NECK/CHEST DEEP TUMOR REMOVAL, 5 CM OR MORE N/A 08/23/2017 08/23/2017 EXCISION NECK/CHEST DEEP TUMOR, 5 CM OR MORE performed by Jaime Acosta MD at OR [facility] dx lipoma NIPPLE/AREOLA RECONSTRUCTION s/p multiple infections REPAIR INITIAL INCISIONAL OR VENTRAL HERNIA; REDUCIBLE REVISION OF FINGER JOINT, EACH Left 07/26/2020 ARTHROPLASTY INTERPHALANGEAL performed by South Mtz MD at [facility] SHOULDER SURGERY PROCEDURE NEC 2009 R shoulder SHOULDER SURGERY PROCEDURE NEC 2012 L shoudler - repaired rotator cuff, removed lipoma SUSPENSION OF VAGINA s/p hysterectomy TENDON SHEATH INCISION, FINGER trigger finger repair TENDON SHEATH INCISION, FINGER Right 02/26/2017 TRIGGER FINGER RELEASE performed by Otis Choudhary Jr., MD at OR [facility] TOTAL ABD HYSTERECTOMY W/WO REMOVAL OF TUBE(S) age 37 Family History Problem Relation Age of Onset Breast Cancer Mother Thyroid cancer Mother Lung cancer Mother Diabetes Father Heart Disorder Father age 65, postop from appendectomy Arthritis Grandmother (Paternal) Rheum arthritis Son Breast Cancer Cousin (Paternal) Breast Cancer Cousin (Paternal) Review of patient's allergies indicates: Allergen Reactions Adhesive Tape Itching and Rash Paper tape is fine Current Outpatient Medications Medication Sig Dispense Refill Blood Glucose Monitoring Suppl (ONE TOUCH ULTRA SYSTEM KIT) W/DEVICE KIT Use up to four times a dayas directed. Dx: 250.00 1 Kit 0 aspirin 81 MG chewable tablet Take 1 Tab by mouth daily. with food. 100 Tab 5 ONETOUCH DELICA LANCETS 33G MISC Tests up to four times a day. DX code: 250.00 100 Each 11 Nystatin Powder Apply to affected area three times per day until healed. 1 Each 1 OneTouch Ultra In Vitro Strip (Glucose Blood) USE UP TO 4 TIMES DAILY DIRECTED 400 Strip 4 valACYclovir HCl 1 GM Oral Tablet (Valtrex) Take 2 Tablets by mouth in the morning and 2 Tablets before bedtime. for cold sores. 4 Tablet 11 Furosemide 40 MG Oral Tablet (Lasix) Take 1 Tablet by mouth in the morning. May take an additional tablet as needed for increased edema.. 120 Tablet 3 Meloxicam 15 MG Oral Tablet TAKE 1 TABLET BY MOUTH EVERY DAY FOR PAIN 90 Tablet 3 Trelegy Ellipta 200-62.5-25 MCG/ACT Aerosol Powder Breath Activated (Hsjmlyxukbd-Thvakwxcrdim-Ehupovjbbl) INHALE 1 PUFF BY MOUTH IN THE MORNING 180 Each 1 rOPINIRole HCl 3 MG Oral Tablet TAKE 1 TABLET BY MOUTH EVERYDAY AT BEDTIME 90 Tablet 3 Albuterol Sulfate HFA 108 (90 Base) MCG/ACT Inhalation Aerosol Solution INHALE 2 PUFFS BY MOUTH EVERY 4 HOURS NEEDED FOR SORE THROAT OR WHEEZING. 18 g 5 Alendronate Sodium 70 MG Oral Tablet (Fosamax) TAKE 1 TABLET (70 MG) BY MOUTH ONCE A WEEK 12 Tablet1 Prochlorperazine Maleate 10 MG Oral Tablet (Compazine) TAKE 1 TABLET BY MOUTH EVERY 6 HOURS NEEDED FOR NAUSEA 60 Tablet 2 traZODone HCl 50 MG Oral Tablet (Desyrel) TAKE 1 TABLET BY MOUTH EVERYDAY AT BEDTIME 90 Tablet 1 metFORMIN HCl 1000 MG Oral Tablet (Glucophage) TAKE 1 TABLET BY MOUTH TWICE A DAY WITH MORNING MEALAND EVENING MEAL 180 Tablet 1 Propranolol HCl 20 MG Oral Tablet (Inderal) TAKE 1 TABLET BY MOUTH IN THE MORNING AND BEFORE BEDTIME 180 Tablet 3 Atorvastatin Calcium 20 MG Oral Tablet (Lipitor) TAKE 1 TABLET BY MOUTH EVERY DAY 90 Tablet 3 Fluticasone Propionate 50 MCG/ACT Nasal Suspension (Flonase) USE 2 SPRAY(S) IN EACH NOSTRIL ONCE DAILY 48 g 1 Ondansetron HCl 8 MG Oral Tablet (Zofran) Take 1 Tablet by mouth every 8 hours as needed for Nausea. 30 Tablet 3 Cyclobenzaprine HCl 10 MG Oral Tablet (Flexeril) TAKE 1 TABLET BY MOUTH THREE TIMES A DAY 270 Tablet 3 Pantoprazole Sodium 40 MG Oral Tablet Delayed Release (Protonix) TAKE 1 TABLET BY MOUTH EVERY DAY IN THE MORNING 90 Tablet 1 Fluticasone Propionate 50 MCG/ACT Nasal Suspension (Flonase) SPRAY 2 SPRAYS INTO EACH NOSTRIL ONCE DAILY (Patient not taking: Reported on 06/29/2023) 48 mL 5 Gabapentin 600 MG Oral Tablet (Neurontin) TAKE 1 TAB BY MOUTH IN MORNING, AT NOON, AND BEFORE BEDTIME, FOR A TOTAL AMOUNT OF THREE TIMES A DAY 90 Tablet 3 buPROPion HCl ER (XL) 150 MG Oral Tablet Extended Release 24 Hour (Wellbutrin XL) TAKE 1 TABLET BY MOUTH EVERY DAY 90 Tablet 1 DULoxetine HCl 30 MG Oral Capsule Delayed Release Particles (Cymbalta) TAKE 2 CAPSULES BY MOUTH IN THE MORNING 180 Capsule 3 Morphine Sulfate ER 15 MG Oral Tablet Extended Release (Ms Contin) Take 1 Tablet by mouth in the morning and 1 Tablet before bedtime. Max 45 tablets/month.. 60 Tablet 0 HYDROmorphone HCl 4 MG Oral Tablet (Dilaudid) Take 1 Tablet by mouth every 4 hours as needed for Pain, Moderate. 60 Tablet 0 No current facility-administered medications for this visit. OBJECTIVE: BP 122/74 (BP Site: Left Arm, BP Position: Sitting, BP Cuff Size: Regular) | Pulse 99 | Temp 36.7 C (98 F) (Tympanic) | Wt 82.4 kg (181 lb 9.6 oz) | SpO2 90% | BMI 31.78 kg/m | BSA 1.92 m PHYSICAL EXAM: General Appearance: Normal - Healthy appearing patient in no acute distress Skin: Normal- No rashes, lesions or petechiae. HEENT: Normal - No oral or pharyngeal masses, ulceration or thrush noted, no sinus tenderness Lymph Nodes: Normal - No palpable lymph nodes in the neck or supraclavicular areas Lungs/Thorax: Normal - Clear to auscultation Heart: Normal - Regular rate and rhythm, normal S1, S2, no appreciable murmurs, rubs, gallops Pulses/Extremities: Normal - 2+ throughout and symmetrical, no edema b/l Abdomen: Normal - Soft, nontender, bowel sounds present, no appreciable hepatosplenomegaly, no palpable masses Musculoskeletal: Normal - No pain on palpation over bony prominence, no joint or bony deformity Neurologic: Normal - Grossly intact Psyche: No vegetative signs of depression. LABS: Blood workup done on 06/30/2021: -BUN/Creat: 5/0.7, Calcium 9.9. - Normal liver function test. -Vitamin B12 --> 401 Blood workup done on 07/24/2022: -WBC 6100, H&H of 13.9/41.3, Platelet count [id number] -BUN/Creat: 11/1.1, normal LFT, Calcium 9.7 Blood workup done on 11/26/2022: -WBC 6900, H&H of 13.6/40, Platelet count 452016 -BUN/Creat: 9/0.9, Calcium 9.8 Blood workup done done on 06/29/2023: - BUN/Creat: 24/1.3, calcium 9.7, normal liver function test. PET-CT scan done on 07/23/2021: - 1.1 cm predominantly cystic nodule in the left upper lobe is without significant FDG activity. CT scan of chest, abdomen pelvis (01/15/2022: - 1. 0.8 x 1.1 cm cavitary left upper lobe lesion is slightly contracted, previously measuring 1.1 x 1.4 cm. 2. New findings of bronchiolitis in the left lower lobe with new clusters of tree in bud opacities.Centrilobular ground-glass micro nodules throughout both lungs are again visualized with small a few new nodules seen. 3. Bilateral adrenal masses are unchanged. Biopsy from the anal canal (12/04/2021 ) --> negative for malignancy. Focal active inflammation. PET-CT scan done on 10/19/2022: -metabolically active left upper lobe lung nodule. CT-guided biopsy of the left upper lobe lung nodule --> non-small cell lung cancer, favoring adenocarcinoma. PET CT ( 05/18/2023) 1. Positive post therapy response to the left upper lobe nodule without residual FDG avidity. 2. No new sites of FDG avid disease identified. Focal uptake in the right infraspinatus musculaturewould most likely be secondary to focal injury/strain that a neoplastic deposit. Specific attentionon future PET would be recommended to ensure resolution. 3. Low level activity along the perineum/anal region within the limits of normal physiologic uptake. Correlate clinically for evidence of recurrent disease in this location. IMPRESSION: Anal cancer Rectovaginal fistula, S/P colostomy S/P combined chemoradiation treatment. I reviewed with her regarding the recent follow-up imaging study, previously noted left upper lobe lung nodule has decrease in the size, continues to smoke, strongly advised to discontinue smoking habit. No evidence of recurrence of anal canal cancer noted. Biopsy from the anal canal in Novemberhowed focal active inflammation, no evidence of malignancy. She does come the chronic back pain, rectal discomfort, she is on MS Contin 15 mg in the morning and 15 mg in the evening, hydromorphone for the breakthrough pain. We are gradually decreasing her opioid medications and she says that she is ready for the further dose reduction. Reviewed the PET-CT scan findings done in October 2022, left upper lobe nodule biopsy showed adenocarcinoma she then completed SBRT to that area in 01/2023. I reviewed with her regarding the recent follow-up PET-CT scan (May 2023 ), had a good response after SBRT to the left upper lobe mass, no evidence of recurrence of anal canal cancer noted. Will continue to observe Reviewed blood workup done recently, kidney function test is slightly abnormal serum creatinine around 1.3 mg/dL. She has been using Lasix on p.r.n. basis, advised her to avoid dehydration. Currentlyno leg edema. She says that she scheduled for another follow-up PET-CT scan in September of 2023. Regarding pain management, currently she is on MS Contin 15 mg once a day and the takes hydromorphone 4 mg, 3 times a day. She says that she is really trying hard to cut back but It is difficult. Shedoes complain of chronic pain. Continues to smoke 5 cigarettes in a day, encouraged to discontinue smoking habit. I am planning to see her back in the clinic about [address] Marciano Pagan Hem/Onc (This note was completed using the dictation program Fluency Direct. As such, there may be misspellings word substitutions, or other variations that should not change the essence of the clinical content of this encounter note. If there is need for further clarification, please direct questions to the provider listed above.) documented in this encounter Nursing Notes * Shira Thakur MED ASSIST - 08/10/2023 2:05 PM EDT Patient identifed by name and birthdate Do you have any concerns about pain management for today's visit? Yes. Patient instructed to discuss pain concerns with provider during the visit today Living Will or Advance Directive for Health Care as noted on the problem list. [facility] is a way you can talk to your provider on line through e-mail. Would you like to sign up? I can activate it for you? ALREADY ACTIVE Filed Vitals: 08/10/23 1400 BP: 122/74 Pulse: 99 Temp: 36.7 C (98 F) TempSrc: Tympanic SpO2: 90% Weight: 82.4 kg (181 lb 9.6 oz) Patient was instructed to not get up on the exam table/exam chair until directed and assisted by their provider; patient is to remain seated in the chair/ wheelchair/ exam table/ exam chair for fall prevention and safety reasons. Patient is aware to have assistance to step down off exam table/exam chair with personnel. Patient voiced full comprehension of instructions. documented in this encounter Plan of Treatment Upcoming Encounters Date Type Department Care Team (Late st Contact Info) Description 08/24/2023 2:00 PM EDT Office Visit Cardiology, [facility] [address] [address] Rosa Elena Ko PA-C [address] [place] [address] 09/16/2023 11:45 AM EDT [address], [address] [address] 09/21/2023 2:00 PM EDT Office Visit General Surgery, [facility] [address] [facility] [address] Rosa Elena Faith MD [address] [place] [address] 09/23/2023 11:30 AM EDT Office Visit [place], [facility] [facility] [address] [facility] [place] [address] [place] [address] 02/02/2024 10:00 AM EDT Laboratory Laboratory [facility] [address] [place] [phone] [address] [place] [address] 02/09/2024 1:45 PM EDT Office Visit Hematology/Oncology [facility] [address] [place] [phone] Marciano Pagan MD 200 [facility] [place] [address] 05/11/2024 2:00 PM EST Office Visit Care at Home [address] [place] [address] Awa Hurd PA-C [address] [place], [place] [id number] Scheduled Procedures Name Priority Associated Diagnoses Date/Ti me COLONOSCOPY FLEXIBLE PROXIMAL DIAGNOSTIC Recall History of anal cancer Health Maintenance Due Date Last Done Comments DISCUSS TOBACCO CESSATION (REFER TO SMARTSET #3291) 1955 Alpha-1 Antitrypsin 11/29/1973 Cologuard 11/29/2000 Fecal Occult Blood Test 11/29/2000 Sigmoidoscopy 11/29/2000 Diabetic Eye Exam 01/21/2021 01/22/2020, , 01/10/2016, [...] 08/10, 03/10/2021, Additional history exists Albumin/Creatinine Ratio 04/02/202404/02/2 023, 09/09/2021, 05/28/2020, Additional history exists Depression Screening 06/23/2024 06/24/2023 GFR 06/28/2024 06/29/2023, 08/10, 08/12/2022, Additional history exists O2 ASSESSMENT COMPLETED IN PAST YEAR FOR COPD 08/09/2024 08/10/2023 Colonoscopy 08/23/2025 08/23/2020, 08/10, 06/24/2016, Additional history exists Colorectal Cancer Screening 08/23/2025 MENINGOCOCCAL (MENACTRA/MENVEO) Aged Out 11/14/2009, 11/14/2009 No longer eligibl e based on patient's age to complete this topic Hepatitis B Completed 02/21/2013, 04/2011, 08/12/2011 VITAMIN D LEVEL ONCE IN A LIFETIME-USE SMARTSET# [id number] Completed 01/23/2019, 08/10/2017, 07/06/2016, Additional history exists Zoster Vaccines Completed 01/22/2020, 04/13, 10/10/2015 RETIRED - COLONOSCOPY-EVERY 5 YRS AGES 18-100 Discontinued 08/23/2020, 08/23/2020, 06/24/2016, Additional history exists Influenza Vaccine (FLU shot) Completed 01/08/2023, 12/29/2021, 01/27/2021, Additional history exists GARDASIL-HPV IMMUNIZATION SERIES Aged Out No longer eligible based on patient's age to complete this topic documented as of this encounter Medical Devices Implanted Type Area Physician Internist Device Identifier Shelf Expiration Date Model / Serial / Lot Headless Compression Screw Implanted:Qty: 1 on 07/26/2020 by South Mtz MD at OR [facility] Left: Finger AR-8725-24 H / / Description:left middle fing er Ascesion Silicone Pip Finger Implant Implanted:Qty: 1 on 07/26/2020 by South Mtz MD at OR [facility] Left: Finger 06/09/2022 [id number]-520-1 -[id number] / / [id number] Description:middle finger documented as of this encounter Visit Diagnoses Diagnosis History of lung cancer- Primary Personal history of malignant neoplasm of bronchus and lung History of rectal or anal cancer Personal history of malignant neoplasm of rectum, rectosigmoid junction, and anus Encounter for follow-up examination after completed treatment for malignant neoplasm Unspecified follow-up examination Rectal pain Anal or rectal pain documented in this encounter Advance Directives Latest [...] the patient have Health Care Power of Egg Smeller? No Full Code 12/09/2020 5:24 PM 12/11/2020 [...] the patient have Health Care Power of Egg Smeller? No Full Code 02/17/2019 10:07 AM 02/17/2019 4:30 PM This order reflects the patients wishes and were consensually agreed upon. Care Teams Field Tech Relationship Specialty Start Date End Date Sukh Holman MD [address] [place] [address] PCP - General Family Medicine 07/26/20 documented as of this encounter"
--- OUTSIDE RECORDS SUMMARY | 2023-08-15 04:00 | External Medical Summary | Summary of Care ---
Author Name Unknown Organization [facility] Address [address] [facility] [place] [address] Phone [phone] Care Team Providers Care Material Preparation Worker Name Role Phone Sukh Holman MD Primary Care Provider [phone] Encounter Details Date Type Department Care Team (Late st Contact Info) Description 08/05/2023 Orders Only PATIENT PORTAL DO NOT DELETE THIS DEPT USED BY [place] [id number] Allergies Active Allergy Reactions Criticality Noted Date Comments Adhesive Tape Itching,Rash 07/29/2016 Paper tape is fine documented as of this encounter (statuses as of 08/05/2023) Medications Medication Sig Dispensed Refills Start Date End Date Status Blood Glucose Monitoring Suppl (ONE TOUCH ULTRA SYSTEM KIT) W/DEVICE KITIndications:DM type 2 goal A1C below 7.5 Use up to four times a day as directed. Dx: 250.00 1 Kit 0 01/02/2015 Active aspirin 81 MG chewable tabletIndications:Ty pe 2 diabetes mellitus with hemoglobin A1c goal of less than 7.5% ([facility]) Take 1 Tab by mouth daily. with food. 100 Tab 5 12/18/2016 Active ONETOUCH DELICA LANCETS 33G MISC Tests up [...] as of this encounter (statuses as of 08/05/2023) Active Problems Problem Noted Date Diagnosed Date [...] as of this encounter (statuses as of 08/05/2023) Resolved Problems Problem Noted Date Diagnosed Date [...] virus 03/04/2022 03/16/2022 Small bowel obstruction 03/03/2022 12/08/2021 Parastomal hernia 03/03/2022 03/16/2022 Hypokalemia 03/03/2022 03/16/2022 [...] Primary squamous cell carcinoma of anal canal 05/05/1907/23/2022 Rectal abscess 05/03/2019 11/22/2020 Closed T11 spinal [...] as of this encounter (statuses as of 08/05/2023) Immunizations Name Administration Dates Next Due COVID-19 mRNA, LNP-s, No Pre serve, 2-Dose Series (Jamgle) 10/03/2020,09/12/2020 H1N1 2009 Influenza, IM 05/03/2009 Hepatitis [...] No 03/03/2022 documented as of this encounter Plan of Treatment Upcoming Encounters Date Type Department Care Team (Late st Contact Info) Description 08/10/2023 2:15 PM EDT Office Visit Hematology/Oncology [facility] [place] [address] [place] [address] Marciano Pagan MD [address] [place] [address] 08/24/2023 2:00 PM EDT Office Visit Cardiology, [facility] 132 [facility] [place] [address] Rosa Elena Ko PA-C 132 [facility] [place] [address] 09/16/2023 11:45 AM EDT Appointment Radiology, [address] [address] 09/21/2023 2:00 PM EDT Office Visit General Surgery, [facility] 132 [facility] [place] [address] Rosa Elena Faith MD [address] [place], [place] [phone] 09/23/2023 11:30 AM EDT Office Visit Pharmacy, [facility] 132 [facility] [place] [address] [facility] 132 [place] [address] 05/11/2024 2:00 PM EST Office Visit Care at Home [address] [place], [place] [phone] Awa Hurd PA-C [address] [place], [place] [phone] Scheduled Procedures Name Priority Associated Diagnoses Date/Ti me COLONOSCOPY FLEXIBLE PROXIMAL DIAGNOSTIC Recall History of anal cancer Health Maintenance Due Date Last Done Comments DISCUSS TOBACCO CESSATION (REFER TO SMARTSET #3291) 1955 Alpha-1 Antitrypsin 11/29/1973 Diabetic Eye Exam [...] D LEVEL ONCE IN A LIFETIME-USE SMARTSET# [id number] Completed 01/23/2019, 08/10/2017, 07/06/2016, Additional history exists [...] this encounter Medical Devices Implanted Type Area Automotive Power Electronics Engineer Device Identifier Shelf Expiration Date Model / Serial / Lot Headless Compression Screw Implanted:Qty: 1 on 07/26/2020 by South Mtz MD at OR [facility] Left: Finger AR-8725-24 H / / Description:left middle fing er Ascesion Silicone Pip Finger Implant Implanted:Qty: 1 on 07/26/2020 by South Mtz MD at OR [facility] Left: Finger 06/09/2022 [id number]-520-1 -[id number] / / [id number] Description:middle finger documented as of this encounter Advance Directives Latest Code Status [...] the patient have Health Care Power of Laborer Airport Maintenance? No Full Code 12/09/2020 5:24 PM 12/11/2020 [...] the patient have Health Care Power of Laborer Airport Maintenance? No Full Code 02/17/2019 10:07 AM 02/17/2019 4:30 PM This order reflects the patients wishes and were consensually agreed upon. Care Teams Material Preparation Worker Relationship Specialty Start Date End Date Sukh Holman MD [address] [place] [address] PCP - General Family Medicine 4/16/21 documented as of this encounter
--- OUTSIDE RECORDS SUMMARY | 2023-08-15 04:00 | External Medical Summary | Summary of Care ---
Author Name Unknown Organization [facility] Address [address] [place] [address] Phone [phone] Care Team Providers Care Legislative Analyst Name Role Phone Sukh Holman MD Primary Care Provider [phone] Reason for Visit * Reason Onset Date Comments Medication Refill 07/31/2023 Encounter Details Date Type Department Care Team (Late st Contact Info) Description 07/31/2023 Refill Hematology/Oncology [facility] 200 [place] [phone] Harlan Couch MD 200 [facility] [place] [address] Anal squamous cell carcinoma (HCC) Allergies Active Allergy Reactions Criticality Noted Date [...] 0 01/02/2015 Active aspirin 81 MG chewable tabletIndications:T ype 2 diabetes mellitus with hemoglobin A1c goal [...] 06/29/2022 Active Furosemide 40 MG Oral Tablet (Lasix)Indications: Edema Take 1 Tablet by mouth in the morning. May take an additional tablet as needed for increased edema.. 120 Tablet 3 07/20/2022 Active Meloxicam 15 MG Oral TabletIndications:F ibromyalgia TAKE 1 TABLET BY MOUTH EVERY DAY FOR PAIN 90 Tablet 3 10/12/2022 Active Trelegy Ellipta 200-62.5-25 MCG/ACT Aerosol Powder Breath Activated (Fluticasone-Umecli dinium-Vilanterol) INHALE 1 PUFF BY MOUTH IN THE MORNING 180 Each 1 02/07/2023 Active rOPINIRole HCl 3 MG Oral Tablet TAKE 1 TABLET BY MOUTH EVERYDAY AT BEDTIME 90 Tablet 3 03/26/2023 Active Albuterol Sulfate HFA 108 (90 Base) MCG/ACT Inhalation Aerosol SolutionIndications :Shortness of breath,Acute bronchospasm INHALE 2 PUFFS BY MOUTH EVERY 4 HOURS NEEDED FOR SORE THROAT OR WHEEZING. 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) TAKE 1 TABLET BY MOUTH TWICE A DAY WITH MORNING MEAL AND EVENING MEAL 180 Tablet 1 05/17/2023 Active Propranolol HCl 20 MG Oral Tablet (Inderal)Indication s:Essential tremor TAKE 1 TABLET BY MOUTH IN THE MORNING AND BEFORE BEDTIME 180 Tablet 3 05/18/2023 Active Atorvastatin Calcium 20 MG Oral Tablet (Lipitor)Indication s:Dyslipidemia, goal LDL below 100 TAKE 1 TABLET BY MOUTH EVERY DAY 90 Tablet 3 06/06/2023 Active Fluticasone Propionate 50 MCG/ACT Nasal Suspension (Flonase)Indication s:Postnasal drip USE 2 SPRAY(S) IN EACH NOSTRIL ONCE DAILY 48 g 1 06/15/2023 Active Ondansetron HCl 8 MG Oral Tablet (Zofran)Indications :Anal cancer (HCC) Take 1 Tablet by mouth every 8 hours as needed for Nausea. 30 Tablet 3 06/14/2023 Active Cyclobenzaprine HCl 10 MG Oral Tablet (Flexeril)Indicatio ns:Spasm of muscle TAKE 1 TABLET BY MOUTH THREE TIMES A DAY 270 Tablet 3 06/15/2023 Active Pantoprazole Sodium 40 MG Oral Tablet Delayed Release (Protonix)Indicatio ns:Reflux esophagitis TAKE 1 TABLET BY MOUTH EVERY DAY IN THE MORNING 90 Tablet 1 06/15/2023 Active Fluticasone Propionate 50 MCG/ACT Nasal Suspension (Flonase)Indication s:Postnasal drip SPRAY 2 SPRAYS INTO EACH NOSTRIL ONCE DAILY 48 mL 5 06/15/2023 Active Additional Information Patient not taking.Reported on 06/29/2023 Gabapentin 600 MG Oral Tablet (Neurontin)Indicati ons:Diabetic polyneuropathy associated with type 2 diabetes mellitus (HCC) TAKE 1 TAB BY MOUTH IN MORNING, AT NOON, AND BEFORE BEDTIME, FOR A TOTAL AMOUNT OF THREE TIMES A DAY 90 Tablet 3 06/15/2023 Active buPROPion HCl ER (XL) 150 MG Oral Tablet Extended Release 24 Hour (Wellbutrin XL)Indications:Fibr omyalgia,Depression TAKE 1 TABLET BY MOUTH EVERY DAY 90 Tablet 1 06/16/2023 Active DULoxetine HCl 30 MG Oral Capsule Delayed Release Particles (Cymbalta)Indicatio ns:Fibromyalgia TAKE 2 CAPSULES BY MOUTH IN THE MORNING 180 Capsule 3 07/06/2023 Active HYDROmorphone HCl 4 MG Oral Tablet (Dilaudid)Indicatio ns:Anal squamous cell carcinoma (HCC) Take 1 Tablet by mouth every 4 hours as needed for Pain, Moderate. 60 Tablet 0 08/02/2023 Active Morphine Sulfate ER 15 MG Oral Tablet Extended Release (Ms Contin)Indications: Anal cancer (HCC),Anal squamous cell carcinoma (HCC) Take 1 Tablet by mouth in the morning and 1 Tablet before bedtime. Max 45 tablets/month.. 60 Tablet 0 06/24/2023 07/31/19 24 Discontinu ed(Refill) HYDROmorphone HCl 4 MG Oral Tablet (Dilaudid)Indicatio ns:Anal squamous cell carcinoma (HCC) Take 1 Tablet by mouth every 4 hours as needed for Pain, Moderate. 60 Tablet 0 07/19/2023 07/31/19 24 Discontinu ed(Refill) documented as of this encounter (statuses as [...] mRNA, LNP-s, No Pre serve, 2-Dose Series (Thermodynamic Process Control) 10/03/2020,09/12/2020 H1N1 2009 Influenza, IM 05/03/2009 Hepatitis [...] encounter Miscellaneous Notes * Telephone Encounter - Marciano Pagan MD - 08/02/2023 9:09 AM EDT E-prescribed hydromorphone. * Telephone Encounter - Nani Morel LPN - 08/02/2023 7:43 AM EDTPending Prescriptions: Disp Refills HYDROmorphone HCl 4 MG Oral Tablet (Dilaud*60 Tab*0 Sig: Take 1 Tablet by mouth every 4 hours as needed for Pain, Moderate. * Telephone Encounter - Nani Morle LPN - 08/02/2023 7:33 AM EDT Refill request for Hydromorphone HCL 4 mg tab pended below: Last Refill: 07/19/2023 PDMP search completed Last seen: 02/03/2023 Per last ovn: She does come the chronic back pain, rectal discomfort, she is on MS Contin 15 mg in the morning and 15 mg in the evening, hydromorphone for the breakthrough pain. We are gradually decreasing her opioid medications and she says that she is ready for the further dose reduction. Next Appt.: 08/10/2023 documented in this encounter Plan of Treatment Upcoming Encounters Date Type Department Care Team (Late st Contact Info) Description 08/10/2023 2:15 PM EDT Office Visit Hematology/Oncology [facility] [place] [address] [place] [phone] Marciano Pagan MD [address] [place] [place] [address] 08/24/2023 2:00 PM EDT Office Visit Cardiology, [facility] [address] [place] [address] Rosa Elena Ko PA-C [address] [place] [address] 09/16/2023 11:45 AM EDT Appointment Radiology, [address] [address] 09/21/2023 2:00 PM EDT Office Visit General Surgery, [facility] [address] [place] [address] Rosa Elena Faith MD [address] [place] [address] 09/23/2023 11:30 AM EDT Office Visit Pharmacy, [facility] [address] [place] [address] [facility] 132 [place] [address] 05/11/2024 2:00 PM EST Office Visit Care at Home [address] [place] [address] Awa Hurd PA-C [address] [place], [place] [phone] Scheduled Procedures Name Priority Associated Diagnoses Date/Ti me COLONOSCOPY FLEXIBLE PROXIMAL DIAGNOSTIC Recall History of anal cancer Health Maintenance Due Date Last Done Comments DISCUSS TOBACCO CESSATION (REFER TO SMARTSET #5542) 1955 Alpha-1 Antitrypsin 11/29/1973 Diabetic Eye Exam 01/21/2021 01/22/2020, , 01/10/2016, Additional history exists DTaP,Tdap,and Td Vaccines (2 - Td or Tdap) 07/16/2021 07/17/2011, 05/11/2000 Pneumococcal Vaccine: 65+ Years (2 of 2 - PCV) 02/25/2022 02/25/2021, 03/04/1999 Diabetic Foot Exam 09/09/2022 09/09/2021, 0 05/28/2020, 03/21/2019, Additional history exists COVID-19 Vaccine (2022- season) 2022 01/28/2022, 09/12/2021, 04/09/2021, Additional history [...] complete this topic Hepatitis B Completed 02/21/2013, 06/0 04/2011, 08/12/2011 VITAMIN D LEVEL ONCE IN A LIFETIME-USE SMARTSET# [id number] Completed 01/23/2019, 08/10/2017, 07/06/2016, Additional history exists [...] this encounter Medical Devices Implanted Type Area Truck Trailer Mechanic Device Identifier Shelf Expiration Date Model / Serial / Lot Headless Compression Screw Implanted:Qty: 1 on 07/26/2020 by South Mtz MD at OR [facility] Left: Finger AR-8725-24 H / / Description:left middle fing er Ascesion Silicone Pip Finger Implant Implanted:Qty: 1 on 07/26/2020 by South Mtz MD at OR [facility] Left: Finger 06/09/2022 SPIP-520-1 -[id number] / / [id number] Description:middle finger documented as of this encounter Visit Diagnoses Diagnosis Anal squamous cell carcinoma (HCC) Malignant neoplasm of anus, unspecified site documented in this encounter Advance Directives Latest [...] the patient have Health Care Power of Interface Designer? No Full Code 12/09/2020 5:24 PM 12/11/2020 [...] the patient have Health Care Power of Interface Designer? No Full Code 02/17/2019 10:07 AM 02/17/2019 4:30 PM This order reflects the patients wishes and were consensually agreed upon. Care Teams Legislative Analyst Relationship Specialty Start Date End Date Sukh Holman MD [address] [place] [address] PCP - General Family Medicine 07/26/20 documented as of this encounter
--- OUTSIDE RECORDS SUMMARY | 2023-08-15 04:01 | External Medical Summary | Summary of Care ---
Author Name Unknown Organization [facility] Address [address] [place] [address] Phone [phone] Care Team Providers Care Coal Carrier Name Role Phone Sukh Holman MD Primary Care Provider [phone] Reason for Visit * Reason Onset Date Comments Precert In Process 07/05/2023 25 Jovita Vuong DILAUDID 4 MG TABLET Encounter Details Date Type Department Care Team (Late st Contact Info) Description 07/05/2023 Telephone Hematology/Oncology [facility] [address] [facility] [place] [address] Marciano Pagan MD [address] [facility], [place] [phone] Precert In Process (25 Jovita GARCESI... Allergies Active Allergy Reactions Criticality Noted Date Comments Adhesive Tape Itching,Rash 07/29/2016 Paper tape is fine documented as of this encounter (statuses as of 07/06/2023) Medications Medication Sig Dispensed Refills Start Date End Date Status Blood Glucose Monitoring Suppl (ONE TOUCH ULTRA SYSTEM KIT) W/DEVICE KITIndications:DM type 2 goal A1C below 7.5 Use up to four times a day as directed. Dx: 250.00 1 Kit 0 5 Active aspirin 81 MG chewable tabletIndications:T ype 2 diabetes mellitus with hemoglobin A1c goal of less than 7.5% ([facility]) Take 1 Tab by mouth daily. with food. 100 Tab 5 7 Active ONETOUCH DELICA LANCETS 33G MISC Tests up to four times a day. DX code: 250.00 100 Each 11 0 Active Nystatin Powder Apply to affected area three times per day until healed. 1 Each 1 1 Active OneTouch Ultra In Vitro Strip (Glucose Blood) USE UP TO 4 TIMES DAILY DIRECTED 400 Strip 4 2 Active valACYclovir HCl 1 GM Oral Tablet (Valtrex) Take 2 Tablets by mouth in the morning and 2 Tablets before bedtime. for cold sores. 4 Tablet 11 3 Active Furosemide 40 MG Oral Tablet (Lasix)Indications: Edema Take 1 Tablet by mouth in the morning. May take an additional tablet as needed for increased edema.. 120 Tablet 3 3 Active Meloxicam 15 MG Oral TabletIndications:F ibromyalgia TAKE 1 TABLET BY MOUTH EVERY DAY FOR PAIN 90 Tablet 3 3 Active Trelegy Ellipta 200-62.5-25 MCG/ACT Aerosol Powder Breath Activated (Fluticasone-Umecli dinium-Vilanterol) INHALE 1 PUFF BY MOUTH IN THE MORNING 180 Each 1 3 Active rOPINIRole HCl 3 MG Oral Tablet TAKE 1 TABLET BY MOUTH EVERYDAY AT BEDTIME 90 Tablet 3 3 Active Albuterol Sulfate HFA 108 (90 Base) MCG/ACT Inhalation Aerosol SolutionIndications :Shortness of breath,Acute bronchospasm INHALE 2 PUFFS BY MOUTH EVERY 4 HOURS NEEDED FOR SORE THROAT OR WHEEZING. 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) TAKE 1 TABLET BY MOUTH TWICE A DAY WITH MORNING MEAL AND EVENING MEAL 180 Tablet 1 4 Active Propranolol HCl 20 MG Oral Tablet (Inderal)Indication s:Essential tremor TAKE 1 TABLET BY MOUTH IN THE MORNING AND BEFORE BEDTIME 180 Tablet 3 4 Active Atorvastatin Calcium 20 MG Oral Tablet (Lipitor)Indication s:Dyslipidemia, goal LDL below 100 TAKE 1 TABLET BY MOUTH EVERY DAY 90 Tablet 3 4 Active Fluticasone Propionate 50 MCG/ACT Nasal Suspension (Flonase)Indication s:Postnasal drip USE 2 SPRAY(S) IN EACH NOSTRIL ONCE DAILY 48 g 1 4 Active Ondansetron HCl 8 MG Oral Tablet (Zofran)Indications :Anal cancer (HCC) Take 1 Tablet by mouth every 8 hours as needed for Nausea. 30 Tablet 3 4 Active Cyclobenzaprine HCl 10 MG Oral Tablet (Flexeril)Indicatio ns:Spasm of muscle TAKE 1 TABLET BY MOUTH THREE TIMES A DAY 270 Tablet 3 4 Active Pantoprazole Sodium 40 MG Oral Tablet Delayed Release (Protonix)Indicatio ns:Reflux esophagitis TAKE 1 TABLET BY MOUTH EVERY DAY IN THE MORNING 90 Tablet 1 4 Active Fluticasone Propionate 50 MCG/ACT Nasal Suspension (Flonase)Indication s:Postnasal drip SPRAY 2 SPRAYS INTO EACH NOSTRIL ONCE DAILY 48 mL 5 4 Active Additional Information Patient not taking.Reported on 06/29/2023 Gabapentin 600 MG Oral Tablet (Neurontin)Indicati ons:Diabetic polyneuropathy associated with type 2 diabetes mellitus (HCC) TAKE 1 TAB BY MOUTH IN MORNING, AT NOON, AND BEFORE BEDTIME, FOR A TOTAL AMOUNT OF THREE TIMES A DAY 90 Tablet 3 4 Active buPROPion HCl ER (XL) 150 MG Oral Tablet Extended Release 24 Hour (Wellbutrin XL)Indications:Fibr omyalgia,Depression TAKE 1 TABLET BY MOUTH EVERY DAY 90 Tablet 1 4 Active Morphine Sulfate ER 15 MG Oral Tablet Extended Release (Ms Contin)Indications: Anal cancer (HCC),Anal squamous cell carcinoma (HCC) Take 1 Tablet by mouth in the morning and 1 Tablet before bedtime. Max 45 tablets/month.. 60 Tablet 0 4 Active HYDROmorphone HCl 4 MG Oral Tablet (Dilaudid)Indicatio ns:Anal squamous cell carcinoma (HCC) Take 1 Tablet by mouth every 4 hours as needed for Pain, Moderate. 60 Tablet 0 4 Active DULoxetine HCl 30 MG Oral Capsule Delayed Release Particles (Cymbalta)Indicatio ns:Fibromyalgia Take 2 Capsules by mouth in the morning. 180 Capsule 3 3 07/06/19 24 Discontinued documented as of this encounter (statuses as of 07/06/2023) Active Problems Problem Noted Date Diagnosed Date [...] as of this encounter (statuses as of 07/06/2023) Resolved Problems Problem Noted Date Diagnosed Date [...] as of this encounter (statuses as of 07/06/2023) Immunizations Name Administration Dates Next Due COVID-19 mRNA, LNP-s, No Pre serve, 2-Dose Series (Pfizer) 10/03/2020,09/12/2020 Diptheria/Tetanus Adult (TD) 05/11/2000 H1N1 2009 Influenza, IM 05/03/2009 Hepatitis B, 20+ yrs 02/21/2013,09/11/2011,08/11 MMR - Measles/Mumps/Rubella Vaccine 09/05/2011 Meningococcal Conjugate Vacc ine (Menactra/Menveo) 11/14/2009 Pneumococcal Polysaccharide PPV23 (Pneumovax) 02/25/2021,03/04/1999 Season Influenza, Cell Cultu re, 18+ Yrs, With Preserv (Flucelvax) 02/21/2013 Seasonal Influenza Virus Vac cine, Unspecified Formulation 02/18/1998 Seasonal Influenza, PF, 6 M & above, IM , (FluLaval or Fluzone) 01/27/2021,01/22/2020,01/17/2019,01/13 Seasonal Influenza, Quadriva lent Hd (Fluzone Hd) 01/08/2023,12/29/2021 Seasonal Influenza, Quadriva lent, No Preserve, IM 11/25/2016,01/06/2016,04/19/2015 Seasonal Influenza, Split, I IV3, With Preserve, Inj 02/28/2014,02/04/2012,03/06/2011,02/20,01/14/2009,03/07/2002,04/22/2001 ,05/11/2000,03/04/1999 TDAP (age 11 and older)(Adacel) 07/17/2011 Varicella [...] encounter Miscellaneous Notes * Telephone Encounter - Jovita Jean OSA - 07/05/2023 2:26 PM EDT [facility] Authorization Submission Submission Information: Medication: DILAUDID 4 MG TABLET Portal used: prompt pa Insurance: formerly [facility] Authorization #/Michaud: [id number] Jovita Jean Medication Supervisor Harvesting 07/05/2023,2:26 PM * Telephone Encounter - Rohan Pires RN - 07/05/2023 1:11 PM EDT I believe patient has new insurance. Previous auth was run through [email or web address]. Please submit as urgent.Thank you! ICD-10: Anal squamous cell carcinoma (HCC) [C21.0] Start date: BARBY Drugs: HYDROmorphone HCl 4 MG Oral Tablet (Dilaudid) Physician: Dr. Marciano Pagan documented in this encounter Plan of Treatment Upcoming Encounters Date Type Department Care Team (Late st Contact Info) Description 08/10/2023 2:15 PM EDT Office Visit Hematology/Oncology [facility] [address] [facility] [place] [phone] Marciano Pagan MD [address] [facility] [place] [place] [address] 08/24/2023 2:00 PM EDT Office Visit Cardiology, [facility] [address] [place] [address] Rosa Elena Ko PA-C [address] [place] [address] 09/16/2023 11:45 AM EDT Appointment Radiology, [address] [place] [address] 09/21/2023 2:00 PM EDT Office Visit General Surgery, [facility] 132 [facility] [place] [address] Rosa Elena Faith MD [address] [place] [address] 09/23/2023 11:30 AM EDT Office Visit Pharmacy, [facility] [address] [facility] [place] [address] [facility] 132 [facility] [place] [address] 05/11/2024 2:00 PM EST Office Visit Care at Home [address] [place] [address] Awa Hurd PA-C [address] [place], [place] [id number] Scheduled Procedures Name Priority Associated Diagnoses Date/Ti me COLONOSCOPY FLEXIBLE PROXIMAL DIAGNOSTIC Recall History of anal cancer Health Maintenance Due Date Last Done Comments DISCUSS TOBACCO CESSATION (REFER TO SMARTSET #1003) 1955 Alpha-1 Antitrypsin 11/29/1973 Diabetic Eye Exam [...] D LEVEL ONCE IN A LIFETIME-USE SMARTSET# 88904 Completed 01/23/2019, 08/10/2017, 07/06/2016, Additional history exists [...] this encounter Medical Devices Implanted Type Area Prevention Coordinator Device Identifier Shelf Expiration Date Model / Serial / Lot Headless Compression Screw Implanted:Qty: 1 on 07/26/2020 by South Mtz MD at OR [facility] Left: Finger AR-8725-24 H / / Description:left middle fing er Ascesion Silicone Pip Finger Implant Implanted:Qty: 1 on 07/26/2020 by South Mtz MD at OR [facility] Left: Finger 06/09/2022 [id number]-520-1 -[id number] / / [id number] Description:middle finger documented as of this encounter [...] the patient have Health Care Power of Fence Builder? No Full Code 12/09/2020 5:24 PM 12/11/2020 [...] the patient have Health Care Power of Fence Builder? No Full Code 02/17/2019 10:07 AM 02/17/2019 4:30 PM This order reflects the patients wishes and were consensually agreed upon. Care Teams Coal Carrier Relationship Specialty Start Date End Date Sukh Holman MD [address] [place] [address] PCP - General Family Medicine 07/26/20 documented as of this encounter
--- OUTSIDE RECORDS SUMMARY | 2023-08-15 04:01 | External Medical Summary | Summary of Care ---
Author Name Unknown Organization [facility] Address [address] [place] [address] Phone [phone] Care Team Providers Care Stranding Supervisor Name Role Phone Sukh Holman MD Primary Care Provider [phone] Reason for Visit * Reason Onset Date Comments Precert Not Needed 07/07/2023 25 Jovita Vuong DILAUDID 4 MG TABLET Encounter Details Date Type Department Care Team (Late st Contact Info) Description 07/05/2023 Telephone Hematology/Oncology [facility] [address] [place] [facility] [place] [address] Marciano Pagan MD [address] [facility], [place] [phone] Precert Not Needed (25 Jovita GARCESI... Allergies Active Allergy Reactions Criticality Noted Date Comments Adhesive Tape Itching,Rash 07/29/2016 Paper tape is fine documented as of this encounter (statuses as of 07/07/2023) Medications Medication Sig Dispensed Refills Start Date End Date Status Blood Glucose Monitoring Suppl (ONE TOUCH ULTRA SYSTEM KIT) W/DEVICE KITIndications:DM type 2 goal A1C below 7.5 Use up to four times a day as directed. Dx: 250.00 1 Kit 0 5 Active aspirin 81 MG chewable tabletIndications:T ype 2 diabetes mellitus with hemoglobin A1c goal of less than 7.5% ([facility]) Take 1 Tab by mouth [...] as of this encounter (statuses as of 07/07/2023) Active Problems Problem Noted Date Diagnosed Date [...] as of this encounter (statuses as of 07/07/2023) Resolved Problems Problem Noted Date Diagnosed Date [...] as of this encounter (statuses as of 07/07/2023) Immunizations Name Administration Dates Next Due COVID-19 [...] Telephone Encounter - Jovita Jean OSA - 07/07/2023 11:16 AM EDT New or re-auth: New authorization Approved/Denied: PA not needed Drug Name and Formulation: DILAUDID 4 MG TABLET How Prescribed(directions/sig): Take 1 Tablet by mouth every 4 hours as needed for Pain, Moderate. Day Supply: 30 Did you receive insurance information from outside the chart? No, received insurance information within the chart Valid auth start date: N/A Valid auth end date: N/A Rx Insurance Info: zhanna ALBRECHT Reference #: [id number] Rx Benefits Verified through/on date: 07/07/2023 Referral (TE) received from: Prescribing [facility] Jovita Jean Medication Associate Scientist 07/07/2023,11:16 AM * Telephone Encounter - Jovita Jean OSA - 07/05/2023 2:26 PM EDT [facility] Authorization Submission Submission Information: Medication: DILAUDID 4 MG TABLET Portal used: rangel albrecht Insurance: zhanna hammer Authorization #/[place]aud: [id number] Jovita Jean Medication Associate Scientist 07/05/2023,2:26 PM * Telephone Encounter - Rohan Pires RN - 07/05/2023 1:11 PM EDT I believe patient has new insurance. Previous auth was run through [employer]. Please submit as urgent.Thank you! ICD-10: Anal squamous cell carcinoma (HCC) [C21.0] Start date: BARBY Drugs: HYDROmorphone HCl 4 MG Oral Tablet (Dilaudid) Physician: Dr. Marciano Pagan documented in this encounter Plan of Treatment Upcoming Encounters Date Type Department Care Team (Late st Contact Info) Description 08/10/2023 2:15 PM EDT Office Visit [facility]ology[facility]On[facility] [address] [facility] [place] [phone] Marciano Pagan MD 200 [facility] [place] [address] 08/24/2023 2:00 PM EDT Office Visit Cardiology, [facility] 132 [facility] [place] [address] Rosa Elena Ko PA-C 132 [facility] [place] [address] 09/16/2023 11:45 AM EDT Appointment Radiology, [address] [address] 09/21/2023 2:00 PM EDT Office Visit General Surgery, [facility] 132 [facility] [place] [address] Rosa Elena Faith MD [address] [facility] [place] [phone] 09/23/2023 11:30 AM EDT Office Visit Pharmacy, [facility] 132 [facility] [place] [address] [facility] 132 [facility] [place] [address] 05/11/2024 2:00 PM EST Office Visit Care at Home [address] [facility] [place] [phone] Awa Hurd PA-C [address] [facility] [place] [phone] Scheduled Procedures Name Priority Associated Diagnoses Date/Ti me COLONOSCOPY FLEXIBLE PROXIMAL DIAGNOSTIC Recall History of anal cancer Health Maintenance Due Date Last Done Comments DISCUSS TOBACCO CESSATION (REFER TO SMARTSET #2994) 1955 Alpha-1 Antitrypsin 11/29/1973 Diabetic Eye Exam [...] Additional history exists DXA Scan 05/13/2023 05/13/2021, 0204/2021, 06/14/2018, Additional history exists Mammogram 08/20/2023 08/19/2022, 08/10, 03/10/2021, Additional history exists Albumin/Creatinine Ratio 04/02/202404/02/2 023, 09/09/2021, 05/28/2020, Additional history exists O2 [...] D LEVEL ONCE IN A LIFETIME-USE SMARTSET# [id number] Completed 01/23/2019, 08/10/2017, 07/06/2016, Additional history exists [...] this encounter Medical Devices Implanted Type Area Broadcast Meteorologist Device Identifier Shelf Expiration Date Model / Serial / Lot Headless Compression Screw Implanted:Qty: 1 on 07/26/2020 by South Mtz MD at OR [facility] Left: Finger AR-8725-24 H / / Description:left middle fing er Ascesion Silicone Pip Finger Implant Implanted:Qty: 1 on 07/26/2020 by South Mtz MD at OR [facility] Left: Finger 06/09/2022 SPIP-520-1 -[id number] / / [id number] Description:middle finger documented as of this encounter [...] the patient have Health Care Power of Bindery Machine Operator? No Full Code 12/09/2020 5:24 PM 12/11/2020 [...] the patient have Health Care Power of Bindery Machine Operator? No Full Code 02/17/2019 10:07 AM 02/17/2019 4:30 PM This order reflects the patients wishes and were consensually agreed upon. Care Teams Stranding Supervisor Relationship Specialty Start Date End Date Sukh Holman MD [address] [place] [address] PCP - General Family Medicine 07/26/20 documented as of this encounter
--- OUTSIDE RECORDS SUMMARY | 2023-08-15 04:01 | External Medical Summary | Summary of Care ---
Author Name Unknown Organization [facility] Address [address] [place] [address] Phone [phone] Care Team Providers Care Physical Therapy Coordinator Name Role Phone Sukh Holman MD Primary Care Provider [phone] Reason for Visit * Reason Onset Date Comments Medication Refill 07/31/2023 Encounter Details Date Type Department Care Team (Late st Contact Info) Description 07/31/2023 Refill Pharmacy, [facility] [address] [place] [address] Zahra Pagan MD [address] [place] [address] Anal cancer (HCC); Anal squamous cell carcinoma (HCC) Allergies Active [...] Tablet 0 06/24/2023 07/31/19 24 Discontinu ed(Refill) documented as of [...] mRNA, LNP-s, No Pre serve, 2-Dose Series (Philoptima) 10/03/2020,09/12/2020 H1N1 2009 Influenza, IM 05/03/2009 Hepatitis [...] encounter Miscellaneous Notes * Telephone Encounter - Zahra Pagan MD - 08/02/2023 9:10 AM EDT E-prescribed MS Contin. * Telephone Encounter - Zahra Pagan MD - 08/02/2023 9:10 AM EDTSigned Prescriptions: Disp Refills Morphine Sulfate ER 15 MG Oral Tablet Exte*60 Tab*0 Sig: Take 1 Tablet by mouth in the morning and 1 Tablet before bedtime. Max 45 tablets/month.. Authorizing Provider: ZAHRA PAGAN * Telephone Encounter - Guillermina Marquez RPh - 08/02/2023 8:00 AM EDT Pending Prescriptions: Disp Refills Morphine Sulfate ER 15 MG Oral Tablet Exte*60 Tab*0 Sig: Take 1 Tablet by mouth in the morning and 1 Tablet before bedtime. Max 45 tablets/month.. documented in this encounter Plan of Treatment Upcoming Encounters Date Type Department Care Team (Late st Contact Info) Description 08/10/2023 2:15 PM EDT Office Visit Hematology/Oncology [facility] [place] [address] [place] [place], [place] [address] Zahra Pagan MD [address] [place] [address] 08/24/2023 2:00 PM EDT Office Visit Cardiology, [facility] [address] [place] [address] Rosa Elena Ko PA-C [address] [place] [address] 09/16/2023 11:45 AM EDT Appointment Radiology, [address] [address] 09/21/2023 2:00 PM EDT Office Visit General Surgery, [facility] [address] [place] [address] Rosa Elena Faith MD [address] [place] [address] 09/23/2023 11:30 AM EDT Office Visit Pharmacy, [facility] [address] [place] [address] [facility] [address] [place] [address] 05/11/2024 2:00 PM EST Office Visit Care at Home [address] [place] [address] Awa Hurd PA-C [address] [place] [address] Scheduled Procedures Name Priority Associated Diagnoses Date/Ti me COLONOSCOPY FLEXIBLE PROXIMAL DIAGNOSTIC Recall History of anal cancer Health Maintenance Due Date Last Done Comments DISCUSS TOBACCO CESSATION (REFER TO SMARTSET #6600) 1955 Alpha-1 Antitrypsin 11/29/1973 Diabetic Eye Exam [...] D LEVEL ONCE IN A LIFETIME-USE SMARTSET# [id number] Completed 01/23/2019, 08/10/2017, 07/06/2016, Additional history exists [...] this encounter Medical Devices Implanted Type Area Proof Plate Maker Device Identifier Shelf Expiration Date Model / Serial / Lot Headless Compression Screw Implanted:Qty: 1 on 07/26/2020 by South Mtz MD at OR [facility] Left: Finger AR-8725-24 H / / Description:left middle fing er Ascesion Silicone Pip Finger Implant Implanted:Qty: 1 on 07/26/2020 by South Mtz MD at OR [facility] Left: Finger 06/09/2022 SPIP-520-1 -[id number] / / [id number] Description:middle finger documented as of this encounter Visit Diagnoses Diagnosis Anal cancer (HCC) Malignant neoplasm of anus, unspecified site Anal squamous cell carcinoma (HCC) Malignant neoplasm [...] the patient have Health Care Power of Air Force Senior Officer? No Full Code 12/09/2020 5:24 PM 12/11/2020 [...] the patient have Health Care Power of Air Force Senior Officer? No Full Code 02/17/2019 10:07 AM 02/17/2019 4:30 PM This order reflects the patients wishes and were consensually agreed upon. Care Teams Physical Therapy Coordinator Relationship Specialty Start Date End Date Sukh Holman MD [address] [place] [address] PCP - General Family Medicine 07/26/20 documented as of this encounter
--- OUTSIDE RECORDS SUMMARY | 2023-08-15 04:01 | External Medical Summary | Summary of Care ---
Author Name Unknown Organization [facility] Address [address] [place] [address] Phone [phone] Care Team Providers Care United [place] Attorney Name Role Phone Sukh Holman MD Primary Care Provider [phone] [phone] Reason for Visit * Reason Onset Date Comments Precert In Process 07/05/2023 25 Jovita Vuong DILAUDID 4 MG TABLET Encounter Details Date Type Department Care Team (Late st Contact Info) Description 07/05/2023 Telephone Hematology/Oncology [facility] [address] [place] [facility] [place] [address] Marciano Pgaan MD [address] [facility], [place] [phone] Precert In Process (25 Jovita GARCESI... Allergies [...] hemoglobin A1c goal of less than 7.5% ([facility]) Take 1 Tab by mouth [...] Jean OSA - 07/05/2023 2:26 PM EDT [facility] Authorization Submission Submission Information: Medication: DILAUDID 4 MG TABLET Portal used: prompt pa Insurance: formerly [facility] Authorization #/[place]: [id number] Jovita Jean Medication Planning Official 07/05/2023,2:26 PM * Telephone Encounter - Rohan Pires RN - 07/05/2023 1:11 PM EDT I believe patient has new insurance. Previous auth was run through [employer]. Please submit as urgent.Thank you! ICD-10: Anal squamous cell carcinoma (HCC) [C21.0] Start date: BARBY Drugs: HYDROmorphone HCl 4 MG Oral Tablet (Dilaudid) Physician: Dr. Marciano Pagan documented in this encounter Plan of Treatment Upcoming Encounters Date Type Department Care Team (Late st Contact Info) Description 08/10/2023 2:15 PM EDT Office Visit Hematology/Oncology [facility] [address] [facility] [place] [phone] Marciano Pagan MD 200 [facility] [place] [address] 08/24/2023 2:00 PM EDT Office Visit Cardiology, [facility] [address] [place] [address] Rosa Elena Ko PA-C [address] [place] [address] 09/16/2023 11:45 AM EDT Appointment Radiology, [address] Alicia [place] [address] 09/21/2023 2:00 PM EDT Office Visit General Surgery, [facility] 132 [facility] [place] [address] Rosa Elena Faith MD [address] [place] [address] 09/23/2023 11:30 AM EDT Office Visit Pharmacy, [facility] 132 [facility] [place] [address] [facility] 132 [facility] [place] [address] 05/11/2024 2:00 PM EST Office Visit Care at Home [address] [place] [address] Awa Hurd PA-C [address] [place], [place] [phone] Scheduled Procedures Name Priority Associated Diagnoses Date/Ti me COLONOSCOPY FLEXIBLE PROXIMAL DIAGNOSTIC Recall History of anal cancer Health Maintenance Due Date Last Done Comments DISCUSS TOBACCO CESSATION (REFER TO SMARTSET #9330) 1955 Alpha-1 Antitrypsin 11/29/1973 Diabetic Eye Exam [...] D LEVEL ONCE IN A LIFETIME-USE SMARTSET# [id number] Completed 01/23/2019, 08/10/2017, 07/06/2016, Additional history exists [...] this encounter Medical Devices Implanted Type Area Sales Support Consultant Device Identifier Shelf Expiration Date Model / Serial / Lot Headless Compression Screw Implanted:Qty: 1 on 07/26/2020 by South Mtz MD at OR [facility] Left: Finger AR-8725-24 H / / Description:left middle fing er Ascesion Silicone Pip Finger Implant Implanted:Qty: 1 on 07/26/2020 by South Mtz MD at OR [facility] Left: Finger 06/09/2022 SPIP-520-1 -[id number] / / [id number] Description:middle finger documented as of this encounter [...] the patient have Health Care Power of Director Of Retail? No Full Code 12/09/2020 5:24 PM 12/11/2020 [...] the patient have Health Care Power of Director Of Retail? No Full Code 02/17/2019 10:07 AM 02/17/2019 4:30 PM This order reflects the patients wishes and were consensually agreed upon. Care Teams United [place] Attorney Relationship Specialty Start Date End Date Sukh Holman MD [address] [place] [address] PCP - General Family Medicine 07/26/20 documented as of this encounter
--- OUTSIDE RECORDS SUMMARY | 2023-08-15 04:01 | External Medical Summary | Summary of Care ---
Author Name Unknown Organization [facility] Address [address] [place] [address] Phone [phone] Care Team Providers Care Engineering Librarian Name Role Phone Sukh Holman MD Primary Care Provider [phone] [phone] Reason for Visit * Reason Onset Date Comments Precert In Process 07/05/2023 25 Jovita Vuong DILAUDID 4 MG TABLET Encounter Details Date Type Department Care Team (Late st Contact Info) Description 07/05/2023 Telephone Hematology/Oncology [facility] [address] [place] [facility] [place] [address] Marciano Pagan MD [address] [facility], [place] [phone] Precert In Process (25 Jovita GARCESI... Allergies [...] hemoglobin A1c goal of less than 7.5% ([facility]) Take 1 Tab by mouth daily. with [...] Jean OSA - 07/05/2023 2:26 PM EDT [facility] Authorization Submission Submission Information: Medication: DILAUDID 4 MG TABLET Portal used: prompt pa Insurance: [facility] Authorization #/[place]: [id number] Jovita Jean Medication Mercury Purifier 07/05/2023,2:26 PM * Telephone Encounter - Rohan Pires RN - 07/05/2023 1:11 PM EDT I believe patient has new insurance. Previous auth was run through [employer]. Please submit as urgent.Thank you! ICD-10: Anal squamous cell carcinoma (HCC) [C21.0] Start date: BARBY Drugs: HYDROmorphone HCl 4 MG Oral Tablet (Dilaudid) Physician: Dr. Marciano Pagan documented in this encounter Plan of Treatment Upcoming Encounters Date Type Department Care Team (Late st Contact Info) Description 08/10/2023 2:15 PM EDT Office Visit Hematology/Oncology [facility] [address] [facility] [place] [phone] Marciano Pagan MD 200 [place] [address] 08/24/2023 2:00 PM EDT Office Visit Cardiology, [facility] [address] [address] Rosa Elena Ko PA-C [address] [place] [address] 09/16/2023 11:45 AM EDT Appointment Radiology, [address] Alicia [place] [address] 09/21/2023 2:00 PM EDT Office Visit General Surgery, [facility] 132 [facility] [place] [address] Rosa Elena Faith MD [address] [place] [address] 09/23/2023 11:30 AM EDT Office Visit Pharmacy, [facility] [address] [facility] [place] [address] [facility] [address] [facility] [place] [address] 05/11/2024 2:00 PM EST Office Visit Care at Home [address] [place] [address] Awa Hurd PA-C [address] [place], [place] [phone] Scheduled Procedures Name Priority Associated Diagnoses Date/Ti me COLONOSCOPY FLEXIBLE PROXIMAL DIAGNOSTIC Recall History of anal cancer Health Maintenance Due Date Last Done Comments DISCUSS TOBACCO CESSATION (REFER TO SMARTSET #4593) 1955 Alpha-1 Antitrypsin 11/29/1973 Diabetic Eye Exam [...] D LEVEL ONCE IN A LIFETIME-USE SMARTSET# [id number] Completed 01/23/2019, 08/10/2017, 07/06/2016, Additional history exists [...] this encounter Medical Devices Implanted Type Area Bean Snapper Device Identifier Shelf Expiration Date Model / Serial / Lot Headless Compression Screw Implanted:Qty: 1 on 07/26/2020 by South Mtz MD at OR [facility] Left: Finger AR-8725-24 H / / Description:left middle fing er Ascesion Silicone Pip Finger Implant Implanted:Qty: 1 on 07/26/2020 by South Mtz MD at OR [facility] Left: Finger 06/09/2022 SPIP-520-1 -[id number] / / [id number] Description:middle finger documented as of this encounter [...] the patient have Health Care Power of Streetcar Motorman? No Full Code 12/09/2020 5:24 PM 12/11/2020 [...] the patient have Health Care Power of Streetcar Motorman? No Full Code 02/17/2019 10:07 AM 02/17/2019 4:30 PM This order reflects the patients wishes and were consensually agreed upon. Care Teams Engineering Librarian Relationship Specialty Start Date End Date Sukh Holman MD [address] [place] [address] PCP - General Family Medicine 07/26/20 documented as of this encounter
--- OUTSIDE RECORDS SUMMARY | 2023-08-15 04:01 | External Medical Summary | Summary of Care ---
Author Name Unknown Organization [facility] Address [address] , [place] Care Team Providers Care Frothing Machine Operator Name Role Phone Sukh Holman MD Primary Care Provider [phone] Reason for Visit * Reason Onset Date Comments Pre Cert/Prior Auth 07/02/2023 Encounter Details Date Type Department Care Team (Late st Contact Info) Description 07/02/2023 Telephone Pharmacy, [facility] [place] [address] [facility] [place] [phone] [facility] [address] [place] [address] Pre Cert/Prior Auth Allergies Active Allergy Reactions Criticality Noted Date Comments Adhesive Tape Itching,Rash 07/29/2016 Paper tape is fine documented as of this encounter (statuses as of 07/09/2023) Medications Medication Sig Dispensed Refills Start Date [...] EVERY DAY 90 Tablet 1 06/16/2023 Active Morphine Sulfate ER 15 MG Oral Tablet Extended Release (Ms Contin)Indications:A nal cancer (HCC),Anal squamous cell carcinoma (HCC) Take 1 Tablet by mouth in the morning and 1 Tablet before bedtime. Max 45 tablets/month.. 60 Tablet 0 06/24/2023 Active HYDROmorphone HCl 4 MG Oral Tablet (Dilaudid)Indication s:Anal squamous cell carcinoma (HCC) Take 1 Tablet by mouth every 4 hours as needed for Pain, Moderate. 60 Tablet 0 07/01/2023 Active documented as of this encounter (statuses as of 07/09/2023) Active Problems Problem Noted Date Diagnosed Date [...] IA2(cT1b, cN0, cM0) - Signed by [place] uQinn MD on 12/21/2022 Overweight (BMI 25.0-29.9) 08/03/2022 [...] as of this encounter (statuses as of 07/09/2023) Resolved Problems Problem Noted Date Diagnosed Date [...] as of this encounter (statuses as of 07/09/2023) Immunizations Name Administration Dates Next Due COVID-19 [...] encounter Miscellaneous Notes * Telephone Encounter - Kamini Prado LPN - 07/09/2023 2:03 PM EDT Addressed in 07/04 telephone encounter. PA not needed * Telephone Encounter - Agatha Grijalva, preassembler and inspector - 07/02/2023 2:17 PM EDT Caller's name: [facility] Pharmacy Preferred call back number(OFFICE NUMBER FOR ): [phone] Reason for call: pharmacist states the Hydromorphone needs a Prior Auth every 10 days, she is asking if you can request at least a 30 day Prior Auth? [facility] Jose ID# [id number] [facility] [id number] N [id number] Thank you. Agatha Grijalva MA Cable Supervisor I [facility] ([facility]) (formerly Telepharmacy) [address] [facility] [phone] [place] [phone] ext [phone] documented in this encounter Plan of Treatment Upcoming Encounters Date Type Department Care Team (Late st Contact Info) Description 08/10/2023 2:15 PM EDT Office Visit Hematology/Oncology [facility] 200 [facility] [place] [phone] Marciano Pagan MD [facility] [address] 08/24/2023 2:00 PM EDT Office Visit Cardiology, [facility] 132 [facility] [place] [address] Rosa Elena Ko PA-C 132 [facility] [place] [address] 09/16/2023 11:45 AM EDT Appointment Radiology, [address] [phone] 09/21/2023 2:00 PM EDT Office Visit General Surgery, [facility] 132 [facility] [place] [address] Rosa Elena Faith MD [address] [place] [address] 09/23/2023 11:30 AM EDT Office Visit Pharmacy, [facility] [address] [place] [address] [facility] [place] [address] [place] [address] 05/11/2024 2:00 PM EST Office Visit Care at Home [address] [place] [address] Awa Hurd PA-C [address] [place] [address] Scheduled Procedures Name Priority Associated Diagnoses Date/Ti me COLONOSCOPY FLEXIBLE PROXIMAL DIAGNOSTIC Recall History of anal cancer Health Maintenance Due Date Last Done Comments DISCUSS TOBACCO CESSATION (REFER TO SMARTSET #9100) 1955 Alpha-1 Antitrypsin 11/29/1973 Diabetic Eye Exam [...] D LEVEL ONCE IN A LIFETIME-USE SMARTSET# [id number] Completed 01/23/2019, 08/10/2017, 07/06/2016, Additional history exists [...] this encounter Medical Devices Implanted Type Area Tugboat Pilot Device Identifier Shelf Expiration Date Model / Serial / Lot Headless Compression Screw Implanted:Qty: 1 on 07/26/2020 by South Mtz MD at OR [facility] Left: Finger AR-8725-24 H / / Description:left middle fing er Ascesion Silicone Pip Finger Implant Implanted:Qty: 1 on 07/26/2020 by South Mtz MD at OR [facility] Left: Finger 06/09/2022 SPIP-520-1 -[id number] / / [id number] Description:middle finger documented as of this encounter [...] the patient have Health Care Power of Field Operations Farm Manager? No Full Code 12/09/2020 5:24 PM 12/11/2020 [...] the patient have Health Care Power of Field Operations Farm Manager? No Full Code 02/17/2019 10:07 AM 02/17/2019 4:30 PM This order reflects the patients wishes and were consensually agreed upon. Care Teams Frothing Machine Operator Relationship Specialty Start Date End Date Sukh Holman MD [address] [place] [address] PCP - General Family Medicine 07/26/20 documented as of this encounter
--- OUTSIDE RECORDS SUMMARY | 2023-08-15 04:01 | External Medical Summary | Summary of Care ---
Author Name Unknown Organization [facility] Address [address] [place] [address] Phone [phone] Care Team Providers Care Credit Analyst Name Role Phone Sukh Holman MD Primary Care Provider [phone] [phone] Encounter Details Date Type Department Care Team (Late st Contact Info) Description 07/08/2023 Population Health External Data Unspecified Department Allergies Active Allergy Reactions Criticality Noted Date Comments Adhesive Tape Itching,Rash 07/29/2016 Paper tape is fine documented as of this encounter (statuses as of 07/13/2023) Medications Medication Sig Dispensed Refills Start Date [...] Pain, Moderate. 60 Tablet 0 07/01/2023 Active DULoxetine HCl 30 MG Oral Capsule Delayed Release Particles (Cymbalta)Indication s:Fibromyalgia TAKE 2 CAPSULES BY MOUTH IN THE MORNING 180 Capsule 3 07/06/2023 Active documented as of this encounter (statuses as of 07/13/2023) Active Problems Problem Noted Date Diagnosed Date [...] as of this encounter (statuses as of 07/13/2023) Resolved Problems Problem Noted Date Diagnosed Date [...] virus 03/04/2022 03/16/2022 Small bowel obstruction 03/03/2022 1208/2021 Parastomal hernia 03/03/2022 03/16/2022 Hypokalemia 03/03/2022 03/16/2022 [...] as of this encounter (statuses as of 07/13/2023) Immunizations Name Administration Dates Next Due COVID-19 [...] 08/10/2023 2:15 PM EDT Office Visit Hematology/Oncology [facility] [place] [address] [place] [address] Marciano Pagan MD [address] [place] [address] 08/24/2023 2:00 PM EDT Office Visit Cardiology, [facility] 132 [facility] [place] [phone] Rosa Elena Ko PA-C 132 [facility] [place] [address] 09/16/2023 11:45 AM EDT Appointment Radiology, [address] [address] 09/21/2023 2:00 PM EDT Office Visit General Surgery, [facility] 132 [facility] [place] [address] Rosa Elena Faith MD [address] [place] [address] 09/23/2023 11:30 AM EDT Office Visit Pharmacy, [facility] 132 [facility] [place] [address] [facility] 132 [place] [address] 05/11/2024 2:00 PM EST Office Visit Care at Home [address] [place] [address] Awa Hurd PA-C [address] [place], [place] [phone] Scheduled Procedures Name Priority Associated Diagnoses Date/Ti [...] 05/28/2020, 03/21/2019, Additional history exists COVID-19 Vaccine (6 - 2023-24 season) 2022 01/28/2022, 09/12/2021, 04/09/2021, Additional history [...] D LEVEL ONCE IN A LIFETIME-USE SMARTSET# [id number] Completed 01/23/2019, 08/10/2017, 07/06/2016, Additional history exists [...] this encounter Medical Devices Implanted Type Area Photographic Equipment Mechanic Device Identifier Shelf Expiration Date Model / Serial / Lot Headless Compression Screw Implanted:Qty: 1 on 07/26/2020 by South Mtz MD at OR [facility] Left: Finger AR-8725-24 H / / Description:left middle fing er Ascesion Silicone Pip Finger Implant Implanted:Qty: 1 on 07/26/2020 by South Mtz MD at OR [facility] Left: Finger 06/09/2022 SPIP-520-1 -[id number] / / [id number] Description:middle finger documented as of this encounter [...] the patient have Health Care Power of Pocket Flap Creasing Machine Operator? No Full Code 12/09/2020 5:24 [...] the patient have Health Care Power of Pocket Flap Creasing Machine Operator? No Full Code 02/17/2019 10:07 AM 02/17/2019 4:30 PM This order reflects the patients wishes and were consensually agreed upon. Care Teams Credit Analyst Relationship Specialty Start Date End Date Sukh Holman MD [address] [place] [address] PCP - General Family Medicine 07/26/20 documented as of this encounter
--- OUTSIDE RECORDS SUMMARY | 2023-08-15 04:02 | External Medical Summary | Summary of Care ---
Author Name Unknown Organization [facility] Address [address] [place] [address] Phone [phone] Care Team Providers Care Adult High School Instructor Name Role Phone Sukh Holman MD Primary Care Provider [phone] Reason for Visit * Reason Onset Date Comments Precert Future 07/05/2023 Dilaudid Encounter Details Date Type Department Care Team (Late st Contact Info) Description 07/05/2023 Telephone Hematology/Oncology [facility] [address] [place] [place] [address] Marciano Pagan MD [address] [place] [facility] [place] [address] Precert Future (Dilaudid) Allergies Active Allergy Reactions Criticality Noted Date Comments Adhesive Tape Itching,Rash 07/29/2016 Paper tape is fine documented as of this encounter (statuses as of 07/05/2023) Medications Medication Sig Dispensed Refills Start Date End Date Status Blood Glucose Monitoring Suppl (ONE TOUCH ULTRA SYSTEM KIT) W/DEVICE KITIndications:DM type 2 goal A1C below 7.5 Use up to four times a day as directed. Dx: 250.00 1 Kit 0 01/02/2015 Active aspirin 81 MG chewable tabletIndications:Ty pe 2 diabetes mellitus with hemoglobin A1c goal of less than 7.5% ([facility]) Take 1 Tab by mouth [...] increased edema.. 120 Tablet 3 07/20/2022 Active DULoxetine HCl 30 MG Oral Capsule Delayed Release Particles (Cymbalta)Indication s:Fibromyalgia Take 2 Capsules by mouth in the morning. 180 Capsule 3 09/03/2022 Active Meloxicam 15 MG Oral TabletIndications:Fi bromyalgia [...] as of this encounter (statuses as of 07/05/2023) Active Problems Problem Noted Date Diagnosed Date [...] as of this encounter (statuses as of 07/05/2023) Resolved Problems Problem Noted Date Diagnosed Date [...] as of this encounter (statuses as of 07/05/2023) Immunizations Name Administration Dates Next Due COVID-19 [...] encounter Miscellaneous Notes * Telephone Encounter - Rohan Pires RN - 07/05/2023 1:11 PM EDT I believe patient has new insurance. Previous auth was run through [employer]. Please submit as urgent.Thank you! ICD-10: Anal squamous cell carcinoma (HCC) [C21.0] Start date: BARBY Drugs: HYDROmorphone HCl 4 MG Oral Tablet (Dilaudid) Physician: Dr. Marciano Pagan documented in this encounter Plan of Treatment Upcoming Encounters Date Type Department Care Team (Late st Contact Info) Description 08/10/2023 2:15 PM EDT Office Visit Hematology/Oncology [facility] [place] 200 [facility] [place] [phone] Marciano Pagan MD 200 [facility] [place] [address] 08/24/2023 2:00 PM EDT Office Visit Cardiology, [facility] 132 [facility] [place] [address] Rosa Elena Ko PA-C 132 [facility] [place] [address] 09/16/2023 11:45 AM EDT Appointment Radiology, [address] [address] 09/21/2023 2:00 PM EDT Office Visit General Surgery, [facility] 132 [facility] [place] [address] Rosa Elena Faith MD [address] [place] [address] 09/23/2023 11:30 AM EDT Office Visit Pharmacy, [facility] 132 [facility] [place] [address] [facility] [place] [address] 05/11/2024 2:00 PM EST [facility] [address] [facility] [address] Awa Hurd PA-C [address] [facility] [address] Scheduled Procedures Name Priority Associated Diagnoses Date/Ti me COLONOSCOPY FLEXIBLE PROXIMAL DIAGNOSTIC Recall History of anal cancer Health Maintenance Due Date Last Done Comments DISCUSS TOBACCO CESSATION (REFER TO SMARTSET #9949) 1955 Alpha-1 Antitrypsin 11/29/1973 Diabetic Eye Exam 01/21/2021 01/22/2020, , 01/10/2016, Additional history exists DTaP,Tdap,and Td Vaccines (2 - Td or Tdap) 07/16/2021 07/17/2011, 05/11/2000 Pneumococcal Vaccine: 65+ Years (2 of 2 - PCV) 02/25/2022 02/25/2021, 03/04/1999 Diabetic Foot Exam 09/09/2022 09/09/2021, 0 05/28/2020, 03/21/2019, Additional history exists COVID-19 Vaccine (2022-24 season) 2022 01/28/2022, 09/12/2021, 04/09/2021, Additional history exists HbA1c 02/12/2023 08/12/2022, 03/12, 09/09/2021, Additional history exists B-12 03/25/2023 03/25/2022, 02/10, 11/01/2019, Additional history exists DXA Scan 05/13/2023 05/13/2021, 02/04/2021, 06/14/2018, Additional history exists Mammogram 08/20/2023 08/19/2022, [...] D LEVEL ONCE IN A LIFETIME-USE SMARTSET# [id number] Completed 01/23/2019, 08/10/2017, 07/06/2016, Additional history exists [...] this encounter Medical Devices Implanted Type Area Morgue Attendant Device Identifier Shelf Expiration Date Model / Serial / Lot Headless Compression Screw Implanted:Qty: 1 on 07/26/2020 by South Mtz MD at OR [facility] Left: Finger AR-8725-24 H / / Description:left middle fing er Ascesion Silicone Pip Finger Implant Implanted:Qty: 1 on 07/26/2020 by South Mtz MD at OR [facility] Left: Finger 06/09/2022 SPIP-520-1 -[id number] / / [id number] Description:middle finger documented as of this encounter [...] the patient have Health Care Power of Cottrell Operator? No Full Code 12/09/2020 5:24 PM [...] the patient have Health Care Power of Cottrell Operator? No Full Code 02/17/2019 10:07 AM 02/17/2019 4:30 PM This order reflects the patients wishes and were consensually agreed upon. Care Teams Adult High School Instructor Relationship Specialty Start Date End Date Sukh Holman MD [address] [place] [address] PCP - General Family Medicine 07/26/20 documented as of this encounter
--- OUTSIDE RECORDS SUMMARY | 2023-08-15 04:02 | External Medical Summary | Summary of Care ---
Author Name Unknown Organization [facility] Address [address] [place] [address] Phone [phone] Care Team Providers Care Maid Supervisor Name Role Phone Rigo Holman MD Primary Care Provider +1 [phone] Reason for Visit * Reason Comments eRx-Medication Refill Encounter Details Date Type Department Care Team (Late st Contact Info) Description 07/05/2023 Ref[address] Pharmacy, [facility] [address] [facility] [place] [address] Rigo Holman MD [address] [facility] [address] Fibromyalgia Allergies Active Allergy Reactions Criticality Noted Date [...] MOUTH IN THE MORNING 180 Capsule 3 4 Active DULoxetine HCl 30 MG Oral [...] mRNA, LNP-s, No Pre serve, 2-Dose Series ([employer]) 10/03/2020,09/12/2020 H1N1 2009 Influenza, IM 05/03/2009 Hepatitis [...] encounter Miscellaneous Notes * Telephone Encounter - Rigo Holman MD - 07/06/2023 8:31 AM EDTSigned Prescriptions: Disp Refills DULoxetine HCl 30 MG Oral Capsule Delayed *180 Ca*3 Sig: TAKE 2 CAPSULES BY MOUTH IN THE MORNINGAuthorizing Provider: RIGO HOLMAN * Telephone Encounter - Nathalie Kramer LPN - 07/06/2023 8:30 AM EDTPending Prescriptions: Disp Refills DULoxetine HCl 30 MG Oral Capsule Delayed *180 Ca*3 Sig: Take 2 Capsules by mouth in the morning. * Telephone Encounter - Nathalie Kramer LPN - 07/06/2023 8:29 AM EDT Pending Prescriptions: Disp Refills DULoxetine HCl 30 MG Oral Capsule Delayed*180 Ca*3 Sig: TAKE 2 CAPSULES BY MOUTH IN THE MORNING Last Visit: 06/24/2023 (in office), Visit date not found (telemedicine) Next Visit: 09/23/2023 Last date the medication was ordered: 09/03/22 Patient Active Problem List Diagnosis Code Tobacco use disorder F17.200 Fibromyalgia M79.7 Gastroesophageal reflux disease with esophagitis K21.00 Dyslipidemia, goal LDL below 70 E78.5 Dyslipidemia E78.5 RLS (restless legs syndrome) G25.81 HTN, goal below 130/80 I10 Essential tremor G25.0 Osteoporosis without current pathological fracture M81.0 Type 2 diabetes mellitus with hemoglobin A1c goal of less than 8.0% ([facility]) E11.9 Iron deficiency anemia due to chronic blood loss D50.0 COPD, group B, by GOLD 2017 classification ([facility]) J44.9 Aortic valve sclerosis 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 Migraine with aura and without status migrainosus, not intractable G43.109 Ileostomy present ([facility]) Z93.2 Medical home patient encounter Z00.8 History of squamous cell carcinoma Z85.89 Overweight (BMI 25.0-29.9) E66.3 Primary malignant neoplasm of left upper lobe of lung (HCC) C34.12 Malignant neoplasm of upper lobe, left bronchus or lung (HCC) C34.12 Anal squamous cell carcinoma (HCC) C21.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 (HCC) E11.29 Cerebral atrophy (HCC) G31.9 Atherosclerosis of both carotid arteries I65.23 Atherosclerosis of aorta (HCC) I70.0 Labs: Lab Results Component Value Date/Time CREATININE - [facility] 1.3 (H) 06/29/2023 02:12 PM CREATININE - [facility] 0.6 11/17/2019 11:47 AM CREATININE ISTAT 0.7 08/31/2013 12:36 PM CREATININE, RANDOM URINE - [facility] 55 04/02/2023 02:56 PM CREATININE, RANDOM URINE - [facility] 27 05/18/2017 04:20 PM CREATININE-OUTSIDE LAB 0.71 12/09/2016 12:00 AM Lab Results Component Value Date/Time POTASSIUM - [facility] 3.8 06/29/2023 02:12 PM POTASSIUM - [facility] 4.5 09/06/2019 03:40 PM POTASSIUM POCT - [facility] <2.0 (LL) 03/04/2022 07:00 PM POTASSIUM POCT - [facility] 4.2 08/31/2013 12:36 PM POTASSIUM-OUTSIDE LAB 4.3 12/09/2016 12:00 AM Lab Results Component Value Date/Time TSH - [facility] 3.54 03/12/2020 09:20 AM Lab Results Component Value Date/Time LDL CHOLESTEROL (CALCULATED) - [facility] 40 06/30/2021 11:58 AM LDL CHOLESTEROL (CALCULATED) - [facility] 68 05/28/2020 12:44 PM LDL CHOLESTEROL (CALCULATED) - [facility] UNINTERPRETABLE RESULT 07/01/2018 04:01 PM LDL CHOLESTEROL (CALCULATED) - [facility] 74 08/10/2017 08:49 AM LDL CHOLESTEROL (DIRECT MEASURE) - [facility] 46 05/05/2023 01:01 PM LDL CHOLESTEROL (DIRECT MEASURE) - [facility] 144 (H) 07/01/2018 04:01 PM LDL CHOLESTEROL (DIRECT MEASURE) - [facility] NOT APPLICABLE 08/10/2017 08:49 AM LDL CHOLESTEROL (DIRECT MEASURE) - [facility] 139 (H) 11/02/2014 09:12 AM LDL CHOLESTEROL (DIRECT MEASURE) - [facility] 121 02/21/2013 03:49 PM Lab Results Component Value Date/Time ALT - [facility] 16 06/29/2023 02:12 PM ALT - [facility] 10 09/06/2019 03:40 PM ALT-OUTSIDE LAB 24 12/09/2016 12:00 AM Hemoglobin AIC Results: Lab Results Component Value Date/Time HEMOGLOBIN A1C - [facility] 6.4 (H) 08/12/2022 04:10 PM HEMOGLOBIN A1C - [facility] 6.0 (H) 03/25/2022 03:38 PM HEMOGLOBIN A1C - [facility] 6.2 (H) 09/09/2021 12:37 PM HEMOGLOBIN A1C - [facility] 5.3 11/01/2019 09:36 AM HEMOGLOBIN A1C - [facility] 5.9 (H) 05/03/2019 12:07 PM HEMOGLOBIN A1C - [facility] 6.1 (H) 01/17/2019 03:40 PM documented in this encounter Plan of Treatment Upcoming Encounters Date Type Department Care Team (Late st Contact Info) Description 08/10/2023 2:15 PM EDT Office Visit Hematology/Oncology [facility] [address] [place] [phone] Marciano Pagan MD [address] [place] [address] 08/24/2023 2:00 PM EDT Office Visit Cardiology, [facility] [address] [place] [address] Rosa Elena Ko PA-C [address] [place] [address] 09/16/2023 11:45 AM EDT Appointment Rad[facility], [facility] [place] [address] 09/21/2023 2:00 PM EDT Office Visit General Surgery, [facility] 132 [facility] [place] [address] Rosa Elena Faith MD [address] [place] [address] 09/23/2023 11:30 AM EDT Office Visit Pharmacy, [facility] 132 [facility] [place] [address] [facility] 132 [facility] [place] [address] 05/11/2024 2:00 PM EST Office Visit Care at Home [address] [facility] [place] [address] Awa Hurd PA-C [address] [place] [address] Scheduled Procedures Name Priority Associated Diagnoses Date/Ti me COLONOSCOPY FLEXIBLE PROXIMAL DIAGNOSTIC Recall History of anal cancer Health Maintenance Due Date Last Done Comments DISCUSS TOBACCO CESSATION (REFER TO SMARTSET #8332) 1955 Alpha-1 Antitrypsin 11/29/1973 Diabetic Eye Exam [...] D LEVEL ONCE IN A LIFETIME-USE SMARTSET# [id number] Completed 01/23/2019, 08/10/2017, 07/06/2016, Additional history exists [...] this encounter Medical Devices Implanted Type Area Medical Record Librarians Teacher Device Identifier Shelf Expiration Date Model / Serial / Lot Headless Compression Screw Implanted:Qty: 1 on 07/26/2020 by South Mtz MD at OR [facility] Left: Finger AR-8725-24 H / / Description:left middle fing er Ascesion Silicone Pip Finger Implant Implanted:Qty: 1 on 07/26/2020 by South Mtz MD at OR [facility] Left: Finger 06/09/2022 SPIP-520-1 -[id number] / / [id number] Description:middle finger documented as of this encounter Visit Diagnoses Diagnosis Fibromyalgia Mylagia and myositis, unspecified documented in this encounter Advance Directives Latest [...] the patient have Health Care Power of Aeronautical Engineering Officer? No Full Code 12/09/2020 5:24 PM [...] the patient have Health Care Power of Aeronautical Engineering Officer? No Full Code 02/17/2019 10:07 AM 02/17/2019 4:30 PM This order reflects the patients wishes and were consensually agreed upon. Care Teams Maid Supervisor Relationship Specialty Start Date End Date Rigo Holman MD [address] [place] [address] PCP - General Family Medicine 07/26/20 documented as of this encounter
--- OUTSIDE RECORDS SUMMARY | 2023-08-15 04:02 | External Medical Summary | Summary of Care ---
Author Name Unknown Organization [facility] Address [address] [place] [address] Phone [phone] Care Team Providers Care Mannequin Sander And Finisher Name Role Phone Sukh Holman MD Primary Care Provider +1 [phone] Reason for Visit * Reason Onset Date Comments Medication Refill 07/01/2023 Encounter Details Date Type Department Care Team (Late st Contact Info) Description 07/01/2023 Refill Pharmacy, [facility] [address] [facility] [place] [address] Zahra Pagan MD [address] [place] [address] Anal squamous cell carcinoma (HCC) Allergies Active Allergy Reactions Criticality Noted Date Comments Adhesive Tape Itching,Rash 07/29/2016 Paper tape is fine documented as of this encounter (statuses as of 07/01/2023) Medications Medication Sig Dispensed Refills Start Date [...] 3 09/03/2022 Active Meloxicam 15 MG Oral TabletIndications:F ibromyalgia [...] Pain, Moderate. 60 Tablet 0 07/01/2023 Active HYDROmorphone HCl 4 MG Oral Tablet (Dilaudid)Indicatio ns:Anal squamous cell carcinoma (HCC) Take 1 Tablet by mouth every 4 hours as needed for Pain, Moderate. 60 Tablet 0 06/14/2023 07/01/19 24 Discontinu ed(Refill) documented as of this encounter (statuses as of 07/01/2023) Active Problems Problem Noted Date Diagnosed Date [...] as of this encounter (statuses as of 07/01/2023) Resolved Problems Problem Noted Date Diagnosed Date [...] as of this encounter (statuses as of 07/01/2023) Immunizations Name Administration Dates Next Due COVID-19 mRNA, LNP-s, No Pre serve, 2-Dose Series ([employer]) 10/03/2020,09/12/2020 H1N1 2009 Influenza, IM 05/03/2009 Hepatitis [...] Telephone Encounter - Zahra Pagan MD - 07/01/2023 10:56 AM EDT E-prescribed hydromorphone. Zahra Pagan MD Hem/Onc * Telephone Encounter - Zahra Pagan MD - 07/01/2023 10:56 AM EDTSigned Prescriptions: Disp Refills HYDROmorphone HCl 4 MG Oral Tablet (Dilaud*60 Tab*0 Sig: Take 1 Tablet by mouth every 4 hours as needed for Pain, Moderate. Authorizing Provider: ZAHRA PAGAN * Telephone Encounter - Guillermina Marquez [facility] - 07/01/2023 10:10 AM EDT Pending Prescriptions: Disp Refills HYDROmorphone HCl 4 MG Oral Tablet (Dilaud*60 Tab*0 Sig: Take 1Tablet by mouth every 4 hours as needed for Pain, Moderate. documented in this encounter Plan of Treatment Upcoming Encounters Date Type Department Care Team (Late st Contact Info) Description 08/10/2023 2:15 PM EDT Office Visit Hematology/Oncology [address] [facility] [place] [address] [place] [address] Zahra Pagan MD [address] [place] [address] 08/24/2023 2:00 PM EDT Office Visit Cardiology, [facility] [address] [place] [address] Rosa Elena Ko PAWilfred [address] [place] [address] 09/16/2023 11:45 AM EDT Appointment Radiology, [address] [address] 09/21/2023 2:00 PM EDT Office Visit General Surgery, [facility] [address] [place] [address] Rosa Elena Faith MD [address] [place] [address] 09/23/2023 11:30 AM EDT Office Visit Pharmacy, [facility] [address] [place] [address] [facility] [address] [place] [address] 05/11/2024 2:00 PM EST Office Visit Care at Home [address] [place] [address] Awa Hurd PA-C [address] [place] [address] Scheduled Procedures Name Priority Associated Diagnoses Date/Ti me COLONOSCOPY FLEXIBLE PROXIMAL DIAGNOSTIC Recall History of anal cancer Health Maintenance Due Date Last Done Comments DISCUSS TOBACCO CESSATION (REFER TO SMARTSET #7884) 1955 Alpha-1 Antitrypsin 11/29/1973 Diabetic Eye Exam [...] D LEVEL ONCE IN A LIFETIME-USE SMARTSET# [id number] Completed 01/23/2019, 08/10/2017, 07/06/2016, Additional history exists [...] this encounter Medical Devices Implanted Type Area Other Sports Official Device Identifier Shelf Expiration Date Model / Serial / Lot Headless Compression Screw Implanted:Qty: 1 on 07/26/2020 by South Mtz MD at OR [facility] Left: Finger AR-8725-24 H / / Description:left middle fing er Ascesion Silicone Pip Finger Implant Implanted:Qty: 1 on 07/26/2020 by South Mtz MD at OR [facility] Left: Finger 06/09/2022 SPIP-520-1 -[id number] / / [id number] Description:middle finger documented as of this encounter [...] the patient have Health Care Power of Fudger? No Full Code 12/09/2020 5:24 PM 12/11/2020 [...] the patient have Health Care Power of Fudger? No Full Code 02/17/2019 10:07 AM 02/17/2019 4:30 PM This order reflects the patients wishes and were consensually agreed upon. Care Teams Mannequin Sander And Finisher Relationship Specialty Start Date End Date Sukh Holman MD [address] [place] [address] PCP - General Family Medicine 07/26/20 documented as of this encounter
--- OUTSIDE RECORDS SUMMARY | 2023-08-15 04:02 | External Medical Summary | Summary of Care ---
Author Name Unknown Organization [facility] Address [address] [place] [address] Phone [phone] Care Team Providers Care Commercial Kitchen Service Technician Name Role Phone Sukh Holman MD Primary Care Provider +1 [phone] Reason for Visit * Reason Comments Outpatient Testing Encounter Details Date Type Department Care Team (Late st Contact Info) Description 06/29/2023 12:20 PM EDT Laboratory Laboratory, [facility] [address] [place] [phone] [facility] [address] [place] [address] Encounter for long-term (current) use of medications Allergies Active Allergy Reactions Criticality Noted Date Comments Adhesive Tape Itching,Rash 07/29/2016 Paper tape is fine documented as of this encounter (statuses as of 06/29/2023) Medications Medication Sig Dispensed Refills Start Date End Date Status Blood Glucose Monitoring Suppl (ONE TOUCH ULTRA SYSTEM KIT) W/DEVICE KITIndications:DM type 2 goal A1C below 7.5 Use up to four times a day as directed. Dx: 250.00 1 Kit 0 01/02/2015 Active aspirin 81 MG chewable tabletIndications:Ty pe 2 diabetes mellitus with hemoglobin A1c goal of less than 7.5% ([facility]) Take 1 Tab by mouth [...] EVERY DAY 90 Tablet 3 06/06/2023 Active HYDROmorphone HCl 4 MG Oral Tablet (Dilaudid)Indication s:Anal squamous cell carcinoma (HCC) Take 1 Tablet by mouth every 4 hours as needed for Pain, Moderate. 60 Tablet 0 06/14/2023 Active Fluticasone Propionate 50 MCG/ACT Nasal Suspension [...] 45 tablets/month.. 60 Tablet 0 06/24/2023 Active documented as of this encounter (statuses as of 06/29/2023) Active Problems Problem Noted Date Diagnosed Date [...] as of this encounter (statuses as of 06/29/2023) Resolved Problems Problem Noted Date Diagnosed Date [...] as of this encounter (statuses as of 06/29/2023) Immunizations Name Administration Dates Next Due COVID-19 [...] 08/10/2023 2:15 PM EDT Office Visit Hematology/Oncology [facility] [address] [place] [address] Marciano Pagan MD [address] [place] [address] 08/24/2023 2:00 PM EDT Office Visit Cardiology, [facility] [address] [place] [address] Rosa Elena Ko PA-C 132 [place] [address] 09/16/2023 11:45 AM EDT Appointment Radiology, [address] [address] 09/21/2023 2:00 PM EDT Office Visit General Surgery, [facility] [address] [place] [address] Rosa Elena Fatih MD [address] [place] [address] 09/23/2023 11:30 AM EDT Office Visit Pharmacy, [facility] [address] [place] [address] [facility] 132 [facility] [place] [address] 05/11/2024 2:00 PM EST Office Visit Care at Home [address] [place] [address] Awa Hurd PA-C [address] [place], [place] [id number] Pending Results Name Type Priority Associated Diagnoses Date /Time COMPREHENSIVE METABOLIC PANEL Lab Routine Encounter for long-term (current) use of medications 06/29/2023 2:12 PM EDT Scheduled Procedures Name Priority Associated Diagnoses Date/Ti me COLONOSCOPY FLEXIBLE PROXIMAL DIAGNOSTIC Recall History of anal cancer Health Maintenance Due Date Last Done Comments DISCUSS TOBACCO CESSATION (REFER TO SMARTSET #2634) 1955 Alpha-1 Antitrypsin 11/29/1973 Diabetic Eye Exam [...] 08/20/2023 08/19/2022, 08/10, 03/10/2021, Additional history exists GFR 08/28/2023 08/27/2022, 050 06/2022, 07/24/2022, Additional history exists Albumin/Creatinine Ratio 04/02/2024 023, 09/09/2021, 05/28/2020, Additional history exists O2 ASSESSMENT COMPLETED IN PAST YEAR FOR COPD 05/11/2024 05/11/2023 Depression Screening 06/23/2024 06/24/2023 COLONOSCOPY-EVERY 5 YRS AGES 18-100 08/23/2025 08/23/2020, 08/23/2020, 06/24/2016, Additional history exists MENINGOCOCCAL (MENACTRA/MENVEO) Aged Out 11/14/2009, 11/14/2009 No longer eligibl e based on patient's age to complete this topic Hepatitis B Completed 02/21/2013, 060 04/2011, 08/12/2011 VITAMIN D LEVEL ONCE IN A LIFETIME-USE SMARTSET# [id number] Completed 01/23/2019, 08/10/2017, 07/06/2016, Additional history exists [...] this encounter Medical Devices Implanted Type Area Administration Manager Device Identifier Shelf Expiration Date Model / Serial / Lot Headless Compression Screw Implanted:Qty: 1 on 07/26/2020 by South Mtz MD at OR [facility] Left: Finger AR-8725-24 H / / Description:left middle fing er Ascesion Silicone Pip Finger Implant Implanted:Qty: 1 on 07/26/2020 by South Mtz MD at OR [facility] Left: Finger 06/09/2022 SPIP-520-1 -[id number] / / [id number] Description:middle finger documented as of this encounter Visit Diagnoses Diagnosis Encounter for long-term (current) use of medications Encounter for long-term (current) use of other medications documented in this encounter Advance Directives Latest [...] the patient have Health Care Power of Communications Department Chair? No Full Code 12/09/2020 5:24 PM 12/11/2020 [...] the patient have Health Care Power of Communications Department Chair? No Full Code 02/17/2019 10:07 AM 02/17/2019 4:30 PM This order reflects the patients wishes and were consensually agreed upon. Care Teams Commercial Kitchen Service Technician Relationship Specialty Start Date End Date Sukh Holman MD [address] [place] [address] PCP - General Family Medicine 07/26/20 documented as of this encounter
--- OUTSIDE RECORDS SUMMARY | 2023-08-15 04:02 | External Medical Summary ---
Author Name Unknown Address Unknown Organization K0G:[facility] [address] [place] [address] Laboratory Report Ordering Provider Test Date Status CIPRIANO CALLE 06/29/2023 14:12:03 Final Observation Date Value Abnormality Reference (Units ) Status BUN 06/29/2023 14:12:03 24 Above high normal 6-20 (mg/dL) Final Creatinine 06/29/2023 14:12:03 1.3 Above high normal 0.5-1.0 (mg/dL) Final Glomerular filtration rate/1.73 sq M.predicted [Volume Rate/Area] in Serum, Plasma or Blood by Creatinine-based formula (CKD-EPI) 06/29/2023 14:12:03 43 Below low normal >=60 (mL/min) Final eGFR is calculated based on the CKD-EPI 2020 equation SODIUM 06/29/2023 14:12:03 134 Below low normal 135 -146 (mmol/L) Final Potassium 06/29/2023 14:12:03 3.8 3.5-5.1 (m mol/L) Final Cl 06/29/2023 14:12:03 91 Below low normal 98- 107 (mmol/L) Final CO2 06/29/2023 14:12:03 32 22-32 (mmo l/L) Final Anion gap 06/29/2023 14:12:03 11 7-15 (mmol /L) Final Glucose 06/29/2023 14:12:03 152 Above high normal 70 -120 (mg/dL) Final Albumin 06/29/2023 14:12:03 4.6 3.8-5.0 (g /dL) Final AST (Aspartate aminotransferase) 06/29/2023 14:12:03 14 10-35 (U/L) Fin al Alk Phos 06/29/2023 14:12:03 72 35-130 (U/ L) Final Bilirubin, Total 06/29/2023 14:12:03 0.4 <=1 .2 (mg/dL) Final Calcium 06/29/2023 14:12:03 9.7 8.4-10.2 ( mg/dL) Final Protein 06/29/2023 14:12:03 6.9 6.0-8.3 (g /dL) Final ALT (Alanine aminotransferase) 06/29/2023 14:12:03 16 10-35 (U/L) Martinez triplett Performing Location [facility] [place] [address] [facility] [address]
--- OUTSIDE RECORDS SUMMARY | 2023-08-15 04:02 | External Medical Summary | Summary of Care ---
Author Name Unknown Organization [facility] Address [address] [place] [address] Phone [phone] Care Team Providers Care Archives Director Name Role Phone Sukh Holman MD Primary Care Provider [phone] Reason for Visit * Reason Onset Date Comments Precert Future 07/05/2023 Dilaudid Encounter Details Date Type Department Care Team (Late st Contact Info) Description 07/05/2023 Telephone Hematology/Oncology [facility] [address] [facility] [place] [address] Marciano Pagan MD [address] [facility] [place] [address] Precert Future (Dilaudid) Allergies Active Allergy Reactions [...] goal of less than 7.5% ([facility]) Take 1 Tab by mouth [...] 08/10/2023 2:15 PM EDT Office Visit Hematology/Oncology [facility] [place] [address] [facility] [place] [phone] Marciano Pagan MD [address] [facility] [place] [address] 08/24/2023 2:00 PM EDT Office Visit Cardiology, [facility] 132 [facility] [place] [address] Rosa Elena Ko PA-C [address] [facility] [place] [address] 09/16/2023 11:45 AM EDT Appointment Radiology, [address] [address] 09/21/2023 2:00 PM EDT Office Visit General Surgery, [facility] 132 [facility] [place] [address] Rosa Elena Faith MD [address] [place] [address] 09/23/2023 11:30 AM EDT Office Visit Pharmacy, [facility] [address] [facility] [place] [address] [facility] [place] [address] 05/11/2024 2:00 PM EST [facility] [address] [facility] [address] Awa Hurd PA-C [address] [facility] [address] Scheduled Procedures Name Priority Associated Diagnoses Date/Ti me COLONOSCOPY FLEXIBLE PROXIMAL DIAGNOSTIC Recall History of anal cancer Health Maintenance Due Date Last Done Comments DISCUSS TOBACCO CESSATION (REFER TO SMARTSET #4491) 1955 Alpha-1 Antitrypsin 11/29/1973 Diabetic Eye Exam [...] D LEVEL ONCE IN A LIFETIME-USE SMARTSET# [id number] Completed 01/23/2019, 08/10/2017, 07/06/2016, Additional history exists [...] this encounter Medical Devices Implanted Type Area Violent Crimes Detective Device Identifier Shelf Expiration Date Model / Serial / Lot Headless Compression Screw Implanted:Qty: 1 on 07/26/2020 by South Mtz MD at OR [facility] Left: Finger AR-8725-24 H / / Description:left middle fing er Ascesion Silicone Pip Finger Implant Implanted:Qty: 1 on 07/26/2020 by South Mtz MD at OR [facility] Left: Finger 06/09/2022 SPIP-520-1 -[id number] / / [id number] Description:middle finger documented as of this encounter [...] the patient have Health Care Power of Bundle Helper? No Full Code 12/09/2020 5:24 PM 12/11/2020 [...] the patient have Health Care Power of Bundle Helper? No Full Code 02/17/2019 10:07 AM 02/17/2019 4:30 PM This order reflects the patients wishes and were consensually agreed upon. Care Teams Archives Director Relationship Specialty Start Date End Date Sukh Holman MD [address] [place] [address] PCP - General Family Medicine 07/26/20 documented as of this encounter
--- OUTSIDE RECORDS SUMMARY | 2023-08-15 04:02 | External Medical Summary | Summary of Care ---
Author Name Unknown Organization [facility] Address [address] [place] [address] Phone [phone] Care Team Providers Care Rn Interventional Name Role Phone Sukh Holman MD Primary Care Provider [phone] Reason for Visit * Reason Onset Date Comments Precert Future 07/05/2023 Dilaudid Encounter Details Date Type Department Care Team (Late st Contact Info) Description 07/05/2023 Telephone Hematology/Oncology [facility] [address] [place] [address] Marciano Pagan MD [address] [place] [address] Precert Future (Dilaudid) Allergies Active Allergy Reactions [...] hemoglobin A1c goal of less than 7.5% ([facility]) Take 1 Tab by mouth daily. with [...] 08/10/2023 2:15 PM EDT Office Visit Hematology/Oncology [facility] [place] [address] [facility] [place] [phone] Marciano Pagan MD 200 [facility] [place] [address] 08/24/2023 2:00 PM EDT Office Visit Cardiology, [facility] [address] [facility] [place] [address] Rosa Elena Ko PA-C 132 [facility] [place] [address] 09/16/2023 11:45 AM EDT Appointment Radiology, [address] [address] 09/21/2023 2:00 PM EDT Office Visit General Surgery, [facility] [address] [facility] [place] [address] Rosa Elena Faith MD [address] [place] [address] 09/23/2023 11:30 AM EDT Office Visit Pharmacy, [facility] [address] [facility] [place] [address] Ja [facility] [place] [address] 05/11/2024 2:00 PM EST [facility] [address] [facility] [address] Awa Hurd PA-C [address] [facility] [address] Scheduled Procedures Name Priority Associated Diagnoses Date/Ti me COLONOSCOPY FLEXIBLE PROXIMAL DIAGNOSTIC Recall History of anal cancer Health Maintenance Due Date Last Done Comments DISCUSS TOBACCO CESSATION (REFER TO SMARTSET #5581) 1955 Alpha-1 Antitrypsin 11/29/1973 Diabetic Eye Exam [...] D LEVEL ONCE IN A LIFETIME-USE SMARTSET# 64691 Completed 01/23/2019, 08/10/2017, 07/06/2016, Additional history exists [...] this encounter Medical Devices Implanted Type Area Battery Plate Remover Device Identifier Shelf Expiration Date Model / Serial / Lot Headless Compression Screw Implanted:Qty: 1 on 07/26/2020 by South Mtz MD at OR [facility] Left: Finger AR-8725-24 H / / Description:left middle fing er Ascesion Silicone Pip Finger Implant Implanted:Qty: 1 on 07/26/2020 by South Mtz MD at OR [facility] Left: Finger 06/09/2022 [id number]-520-1 -[id number] / / [id number] Description:middle finger documented as of this encounter [...] the patient have Health Care Power of Lumber Material Handler? No Full Code 12/09/2020 5:24 PM 12/11/2020 [...] the patient have Health Care Power of Lumber Material Handler? No Full Code 02/17/2019 10:07 AM 02/17/2019 4:30 PM This order reflects the patients wishes and were consensually agreed upon. Care Teams Rn Interventional Relationship Specialty Start Date End Date Sukh Holman MD [address] [place] [address] PCP - General Family Medicine 07/26/20 documented as of this encounter
--- OUTSIDE RECORDS SUMMARY | 2023-08-15 04:02 | External Medical Summary | Summary of Care ---
Author Name Unknown Organization [facility] Address [address] [place] [address] Phone [phone] Care Team Providers Care Radiologic Electronic Specialist Name Role Phone Sukh Holman MD Primary Care Provider [phone] Reason for Referral * Precert (Within 10 days (routine)) - Pending Review Specialty Diagnoses / Procedures Referred By Contac t Referred To Contact Radiology Diagnoses Anal squamous cell carcinoma (HCC) Procedures PET CT SKULL BASE TO MID-THIGH FDG Rosa Elena Faith MD [address] [place] [address] Referral ID Status Reason Start Date Expiration Date V isits Requested Visits Authorized [id number] Pending Review 09/12/2023 999 999 Reason for Visit * Reason Comments Follow Up Hx of anal squamous cell carcinoma, and hx of lung cancer Encounter Details Date Type Department Care Team (Late st Contact Info) Description 06/29/2023 1:15 PM EDT Office Visit General Surgery, [facility] 132 [facility] [place] [address] Rosa Elena Faith MD [address] [place] [address] Anal squamous cell carcinoma (HCC)* Allergies Active Allergy Reactions Criticality Noted Date [...] hemoglobin A1c goal of less than 7.5% ([facility]) Take 1 Tab by mouth daily. with food. 100 Tab 5 12/18/2016 Active Lockdown NetworksTOUCH DELICA LANCETS 33G MISC Tests up to four times a day. DX code: 250.00 100 Each 11 05/22/2019 Active Nystatin Powder Apply to affected area three times per day until healed. 1 Each 1 03/24/2021 Active Stem Ultra In Vitro Strip (Glucose Blood) USE [...] mRNA, LNP-s, No Pre serve, 2-Dose Series ([employer]) 10/03/2020,09/12/2020 H1N1 2009 Influenza, IM 05/03/2009 Hepatitis [...] Sign Reading Time Taken Comments Blood Pressure 137/67 06/29/2023 1:19 PM EDT Pulse 112 06/29/2023 1:19 PM EDT Temperature 36.7 C (98.1 F) 06/29/2023 1:19 PM ED T Respiratory Rate - - Oxygen Saturation - - Inhaled Oxygen Concentration - - Weight 82.9 kg (182 lb 11.2 oz) 06/29/2023 1:19 PM EDT Height - - Body Mass Index 31.97 12/09/2022 12:05 PM EDT documented in this [...] as of this encounter Progress Notes * Rosa Elena Faith MD - 06/29/2023 1:15 PM EDT Colorectal Return Visit 06/29/23 Last seen: 07/13/22 SUBJECTIVE: Emiliana Donis presents to the clinic for anal SCC routine follow up (in remission) s/p James protocol. She is 4 years s/p James protocol (completed 07/28/2019). Doing well recently without major complaint. Some occasional twinges of pain around her parastomal hernia, but none lasting. No changes in ostomy function. PET 05/18/23: IMPRESSION 1. Positive post therapy response to the [...] evidence of recurrent disease in this location. 4. Remaining chronic CT findings as above. Lung Cytology: Final Diagnosis A. Lung, Left lower lobe, CT guided core needle biopsy: Adequacy: Satisfactory for evaluation. Category: Malignant. Interpretation: Non-small cell carcinoma, favor adenocarcinoma (see comment). Comment: The histological sections of the biopsy specimens (A1 and A3) show a few clusters of epithelioid tumor cells with nuclear pleomorphism, prominent nucleoli, and eosinophilic cytoplasm. Immunohistochemical stains were performed with adequate controls on block A1 and show that the tumor cellsare positive for CK7 and TTF1, while negative for p40, p16, and synaptophysin. Overall, the findings support a poorly differentiated non-small cell carcinoma of the lung, favoring an adenocarcinoma. No squamous or neuroendocrine differentiation is seen. Material (block A3) is sufficient for molecular or other studies, if clinically indicated. Clinical and radiological correlation is suggested. Pathology: A. Left lateral anal canal, biopsy: Colonic mucosa and squamous mucosa with focal active inflammation and reactive change. Negative for dysplasia and carcinoma. B. Left kaela-lateral anal canal, biopsy: Squamous mucosa with mild reactive change and mild atypia. Negative for dysplasia and carcinoma Comment: Parts A and B: Multiple deeper levels have been examined. Colonoscopy 08/23/20: Impression: - Colonic fistula. - Diverticulosis in the sigmoid colon. - No specimens collected. - Otherwise normal to the terminal ileum, with retroflexed views of the ascending colon and rectum. Recommendation: - Repeat colonoscopy in 5 years for surveillance. OBJECTIVE: BP 137/67 | Pulse 112 | Temp 36.7 C (98.1 F) | Wt 82.9 kg (182 lb 11.2 oz) | BMI 31.97 kg/m |BSA 1.93 m Physical Exam Constitutional: General: She is not in acute distress. Appearance: She is well-developed. HENT: Head: Normocephalic and atraumatic. Eyes: Pupils: Pupils are equal, round, and reactive to light. Cardiovascular: Rate and Rhythm: Normal rate. Pulmonary: Effort: Pulmonary effort is normal. No respiratory distress. Abdominal: Palpations: Abdomen is soft. Genitourinary: Comments: External Exam: External hemorrhoid, soft. No other lesions; minimal radiation change. DON: Good tone, no rough irregularities. Soft anal canal. Somewhat stenotic but admits a finger. Anterior soft, mobile mass along RV septum. Anoscopy: Unable to be satisfactorily completed due to stenosis with the size of anoscope availableto nj. Musculoskeletal: General: Normal range of motion. Cervical back: Normal range of motion. Skin: General: Skin is warm and dry. Findings: No erythema. Neurological: Mental Status: She is alert and oriented to person, place, and time. IMPRESSION: 66yo F with stable remission of Anal scc disease by PET in May. Soft anal canal onexam, but cannot discern scar/normal changes versus recurrent mass so will do shorter interval PET in September and see her back after that. PLAN: RTC 3 MONTHS PET 3 months Surveillance Anal SCC Every 3-6 months x 5 years: -DON/Anoscopy -Inguinal node eval Yearly x 5 years -CT C/A/P and - MRI Pelvis Rosa Elena Faith MD [address] [place] [address] 06/29/23 documented in this encounter Nursing Notes * Jenniffer Kumari LPN - 06/29/2023 1:21 PM EDT Patient identified by name and date of . Chief Complaint Patient presents with Follow Up Hx of anal squamous cell carcinoma, and hx of lung cancer Pt denies any issues or concerns at this time. Pt stating that she does have some questions about follow up in this dept . Pt asking about her ' ileostomy" and pt present with boyfriend, charo. documented in this encounter Plan of Treatment Upcoming Encounters Date Type Department Care Team (Late st Contact Info) Description 08/10/2023 2:15 PM EDT Office Visit Hematology/Oncology [facility] [address] [place] [phone] Marciano Pagan MD [facility] [place] [address] 08/24/2023 2:00 PM EDT Office Visit Cardiology, [facility] [address] [place] [address] Rosa Elena Ko PA-C 132 [facility] [place] [address] 09/16/2023 11:45 AM EDT Appointment Radiology, [facility] [address] [place] [address] 09/21/2023 2:00 PM EDT Office Visit General Surgery, [facility] 132 [facility] [place] [address] Rosa Elena Faith MD [address] [place] [address] 09/23/2023 11:30 AM EDT Office Visit Pharmacy, [facility] 132 [facility] [place] [address] [facility] 132 [facility] [place] [address] 05/11/2024 2:00 PM EST Office Visit Care at Home [address] [place] [address] Awa Hurd PA-C [address] [place] [address] Scheduled Orders Name Type Priority Associated Diagnoses Orde r Schedule PET CT SKULL BASE TO MID-THIGH FDG Medical Imaging Routine Anal squamous cell carcinoma (HCC) Expected: 09/12/2023, Expires: 07/29/2024 Scheduled Procedures Name Priority Associated Diagnoses Date/Ti me COLONOSCOPY FLEXIBLE PROXIMAL DIAGNOSTIC Recall History of anal cancer Health Maintenance Due Date Last Done Comments DISCUSS TOBACCO CESSATION (REFER TO SMARTSET #1196) 1955 Alpha-1 Antitrypsin 11/29/1973 Diabetic Eye Exam [...] D LEVEL ONCE IN A LIFETIME-USE SMARTSET# 34877 Completed 01/23/2019, 08/10/2017, 07/06/2016, Additional history exists [...] this encounter Medical Devices Implanted Type Area Housing Development Specialist Device Identifier Shelf Expiration Date Model / Serial / Lot Headless Compression Screw Implanted:Qty: 1 on 07/26/2020 by South Mtz MD at OR [facility] Left: Finger AR-8725-24 H / / Description:left middle fing er Ascesion Silicone Pip Finger Implant Implanted:Qty: 1 on 07/26/2020 by South Mtz MD at OR [facility] Left: Finger 06/09/2022 SPIP-520-1 -[id number] / / [id number] Description:middle finger documented as of this encounter Visit Diagnoses Diagnosis Anal squamous cell carcinoma (HCC)- Primary Malignant neoplasm of anus, unspecified site documented [...] the patient have Health Care Power of Mastic Man? No Full Code 12/09/2020 5:24 PM 12/11/2020 [...] the patient have Health Care Power of Mastic Man? No Full Code 02/17/2019 10:07 AM 02/17/2019 4:30 PM This order reflects the patients wishes and were consensually agreed upon. Care Teams Radiologic Electronic Specialist Relationship Specialty Start Date End Date Sukh Holman MD [address] [place] [address] PCP - General Family Medicine 07/26/20 documented as of this encounter
--- OUTSIDE RECORDS SUMMARY | 2023-08-15 04:02 | External Medical Summary | Summary of Care ---
Author Name Unknown Organization [facility] Address [address] [place] [address] Phone [phone] Care Team Providers Care Gas Engine Mechanic Name Role Phone Sukh Holman MD Primary Care Provider [phone] Reason for Visit * Reason Onset Date Comments Precert In Process 07/05/2023 25 Jovita Vuong DILAUDID 4 MG TABLET Encounter Details Date Type Department Care Team (Late st Contact Info) Description 07/05/2023 Telephone Hematology/Oncology [facility] [address] [place] [address] Marciano Pagan MD [address] [facility], [place] [phone] Precert In Process (25 Jovita GARCESI... Allergies [...] mRNA, LNP-s, No Pre serve, 2-Dose Series ([employer]) 10/03/2020,09/12/2020 Diptheria/Tetanus Adult (TD) 05/11/2000 H1N1 2009 [...] OSA - 07/05/2023 2:26 PM EDT [facility] Authorization Submission Submission Information: Medication: DILAUDID 4 MG TABLET Portal used: prompt pa Insurance: [facility] Authorization #/Michaud: [id number] Jovita Jean Medication Mixer Tender 07/05/2023,2:26 PM * Telephone Encounter - Rohan Pires RN - 07/05/2023 1:11 PM EDT I believe patient has new insurance. Previous auth was run through [employer]. Please submit as urgent.Thank you! ICD-10: Anal squamous cell carcinoma (HCC) [C21.0] Start date: BARBY Drugs: HYDROmorphone HCl 4 MG Oral Tablet (Dilaudid) Physician: Dr. Marciano Pagan documented in this encounter Plan of Treatment Upcoming Encounters Date Type Department Care Team (Late st Contact Info) Description 08/10/2023 2:15 PM EDT Office Visit Hematology/Oncology [facility] [address] [facility] [place] [phone] Marciano Pagan MD [address] [facility] [place] [address] 08/24/2023 2:00 PM EDT Office Visit Cardiology, [facility] [address] [place] [address] Rosa Elena Ko PA-C [address] [place] [address] 09/16/2023 11:45 AM EDT Appointment Radiology, [address] [place] [address] 09/21/2023 2:00 PM EDT Office Visit General Surgery, [facility] 132 [place] [address] Rosa Elena Faith MD [address] [place] [address] 09/23/2023 11:30 AM EDT Office Visit Pharmacy, [facility] 132 [place] [address] [facility] 132 [facility] [address] 05/11/2024 2:00 PM EST Office Visit Care at Home [address] [place] [address] Awa Hurd PA-C [address] [place], [place] [id number] Scheduled Procedures Name Priority Associated Diagnoses Date/Ti me COLONOSCOPY FLEXIBLE PROXIMAL DIAGNOSTIC Recall History of anal cancer Health Maintenance Due Date Last Done Comments DISCUSS TOBACCO CESSATION (REFER TO SMARTSET #3157) 1955 Alpha-1 Antitrypsin 11/29/1973 Diabetic Eye Exam [...] D LEVEL ONCE IN A LIFETIME-USE SMARTSET# [id number] Completed 01/23/2019, 08/10/2017, 07/06/2016, Additional history exists [...] this encounter Medical Devices Implanted Type Area Funnel Coater Device Identifier Shelf Expiration Date Model / Serial / Lot Headless Compression Screw Implanted:Qty: 1 on 07/26/2020 by South Mtz MD at OR [facility] Left: Finger AR-[id number] H / / Description:left middle fing er Ascesion Silicone Pip Finger Implant Implanted:Qty: 1 on 07/26/2020 by South Mtz MD at OR [facility] Left: Finger 06/09/2022 SPIP-520-1 -[id number] / / [id number] Description:middle finger documented as of this encounter [...] the patient have Health Care Power of Casino Cage Cashier? No Full Code 12/09/2020 5:24 PM 12/11/2020 [...] the patient have Health Care Power of Casino Cage Cashier? No Full Code 02/17/2019 10:07 AM 02/17/2019 4:30 PM This order reflects the patients wishes and were consensually agreed upon. Care Teams Gas Engine Mechanic Relationship Specialty Start Date End Date Sukh Holman MD 132 [facility] [place] [address] PCP - General Family Medicine 07/26/20 documented as of this encounter
--- OUTSIDE RECORDS SUMMARY | 2023-08-15 04:03 | External Medical Summary | Summary of Care ---
Author Name Unknown Organization [facility] Address [address] [place] [address] Phone [phone] Care Team Providers Care Survival Equipment Repairer Name Role Phone Sukh Holman MD Primary Care Provider [phone] Reason for Visit * Reason Comments Dosage Adjustment In Person (Anticoag Cl inic) Pain Encounter Details Date Type Department Care Team (Late st Contact Info) Description 06/24/2023 11:30 AM EDT Office Visit Pharmacy, [facility] [address] [place] [address] [facility] 132 [place] [address] Chronic pain syndrome*; Anal squamous cell carcinoma (HCC); Anal cancer (HCC) Allergies Active Allergy Reactions Criticality Noted Date Comments Adhesive Tape Itching,Rash 07/29/2016 Paper tape is fine documented as of this encounter (statuses as of 06/24/2023) Medications Medication Sig Dispensed Refills Start Date [...] ONCE DAILY 48 mL 5 06/15/2023 Active Gabapentin 600 MG Oral Tablet (Neurontin)Indicati ons:Diabetic [...] the morning and 1 Tablet before bedtime. 60 Tablet 0 05/12/2023 4 Discontinu ed(Refill) documented as of this encounter (statuses as of 06/24/2023) Active Problems Problem Noted Date Diagnosed Date [...] as of this encounter (statuses as of 06/24/2023) Resolved Problems Problem Noted Date Diagnosed Date [...] as of this encounter (statuses as of 06/24/2023) Immunizations Name Administration Dates Next Due COVID-19 mRNA, LNP-s, No Pre serve, 2-Dose Series ([employer]) 10/03/2020,09/12/2020 Diptheria/Tetanus Adult (TD) 05/11/2000 H1N1 2009 [...] pur e alcohol) PHQ-2 Answer Date Recorded PHQ-2 Score 6 05/22/2019 Hunger Vital Sign Answer Date Recorded Within the past 12 months, y ou worried that your food would run out before you got the money to buy more. Often true Within the past 12 months, t he food you bought just didn't last and you didn't have money to get more. Sometimes true 03/2021 Sex and Gender Information Value Date Recorded [...] as of this encounter Progress Notes * Mascaritola, Kristine, [facility] - 06/23/2023 10:04 PM EDT Images from the original note were not included. Medication Therapy Disease Management Clinic - Chronic Pain Management Progress Note 06/23/2023 Emiliana Donis, identified by name and date of , is a 67 year old female being seen for chronicpain management/education. Patient presents to pain MTM clinic for return visit. Referring Physician: Dr. Pagan Medication Use Agreement: on file Patient's Pharmacy: [facility] CHIEF COMPLAINT: cancer pain/wean HPI: States overall she is doing well. Pain stable. Notes reduced to 1 morphine daily. Sometimes takes 2 tablets daily. Notes continued use of 3-4 hydromorphone daily PET scan shows lung lesion has had great response per Dr. Pagan Psychiatric Hx: None Neurological Hx: None Cardiac Hx: Aortic valve sclerosis Renal Hx: None Hepatic Hx: None Other: Asthma/COPD, cancer Exercise/Activity: limited Tobacco Use: Former - Quit 02/2022 Alcohol Use: Not asked Illicit Substance/Rx Abuse: no CONTROLLED SUBSTANCE COMPLIANCE MONITORING: Opioid Risk Assessment Tool (BRQ): Total score: 0-2 points (Low risk) CAGE-AID (09/03/2022): Total score: 0 points (problem unlikely) Daily MME: 63 (successfully decreased by 15 MME since last visit) PDMP Reviewed (06/24/23): Pill Count: Not done Functional Goal: QOL Current Pain Level (06/23/23): stable Pain Level (04/01/23): no change Pain Level (11/05/22): stable Pain Level (09/03/22): 7/10 Pain Level (07/02/22): stable Pain Level (04/23/2022): Stable Pain Level (01/05/22): Stable Pain Level (11/24/21): stable Pain Level (10/27/21): stable Pain Level (09/24/2021): controlled Current Pain Medications: MS Contin 15mg AM and 15 mg PM- has not filled since 05/12/23 for 30 day supply Hydromorphone 4 mg q4hr- sometimes taking 3-4 tablets daily if needed Meloxicam 15 mg daily Flexeril 10 mg TID Gabapentin 600 mg TID Duloxetine 60mg daily *ropinirole 3mg HS, trazadone 50mg HS, ondansetron 8mg PRN, prochlorperazine 10mg PRN Creatinine Clearance: Creatinine clearance cannot be calculated (Patient's most recent lab result is older than the maximum 180 days allowed.) Creatinine Results: Recent Labs Units 08/27/22 1401 08/12/22 1610 07/24/22 1028 CREATININE - [facility] mg/dL 0.9 1.2* 1.1* Hepatic Function (ALT): Recent Labs Units 07/24/22 1028 03/25/22 1538 03/08/22 0637 ALT - [facility] U/L 9* 16 17 Comprehensive Metabolic Panel Results: Results for orders placed or performed in visit on 07/24/22 COMPREHENSIVE METABOLIC PANEL Result Value Ref Range BUN 11 6 - 20 mg/dL Creatinine 1.1 (H) 0.5 - 1.0 mg/dL Estimated Glomerular Filtration Rate 58 (L) >=60 mL/min Sodium 126 (L) 135 - 146 mmol/L Potassium 4.1 3.5 - 5.1 mmol/L Chloride 85 (L) 98 - 107 mmol/L CO2 31 22 - 32 mmol/L Anion Gap 10 7 - 15 mmol/L Glucose 127 (H) 70 - 120 mg/dL Albumin 4.4 3.8 - 5.0 g/dL AST 12 10 - 35 U/L Alkaline Phosphatase 71 35 - 130 U/L Bilirubin, Total 0.3 <=1.2 mg/dL Calcium 9.7 8.4 - 10.2 mg/dL Protein 7.2 6.0 - 8.3 g/dL ALT 9 (L) 10 - 35 U/L ASSESSMENT: Patient aware MTM is a clinical pharmacist visit, with focus on medication options for current diagnoses referred by Primary Care Provider for review and optimization. Focus of this visit is Medication Wean. Current concerns: none Adherence: Reviewed current regimen, patient is adherent to regimen. Treatment options: wean morphine Treatment concerns: none Education provided: Discussed continuing to wean morphine. Pt to call if any concerns. I have evaluated the patient for the appropriateness and necessity of opioid pain medications. Patient has been educated towards the benefits and risks of opioid medications, including dependence, addiction, and overdose. Patient is aware of the requirements set out in the medication use agreement,including the need for routine urine drug screening. No red flags for abuse or misuse have been exhibited. PLAN: Reduced MS Contin 15mg daily. Second tablet PRN. Max 45 tablets/month. Medication changes: yes, see below Pain Medications: REDUCE MS Contin 15mg daily. Second tablet PRN. Max 45 tablets/month. Hydromorphone 4 mg q4hr- sometimes taking 3-4 tablets daily if needed Meloxicam 15 mg daily Flexeril 10 mg TID Gabapentin 600 mg TID Duloxetine 60mg daily *ropinirole 3mg HS, trazadone 50mg HS, ondansetron 8mg PRN, prochlorperazine 10mg PRN Patient verbalized understanding of the plan. Contact clinic with any issues. FOLLOW UP: Return to clinic in 12 weeks 09/23/2023 Kristine Devlin RPh Clinical Pharmacist - Preparator Medication Therapy Management Clinic 06/23/2023, 10:05 PM documented in this encounter Plan of Treatment Upcoming Encounters Date Type Department Care Team (Late st Contact Info) Description 06/29/2023 1:15 PM EDT Office Visit General Surgery, [facility] [address] [facility] [place] [address] Rosa Elena Faith MD [address] [place] [address] 08/10/2023 2:15 PM EDT Office Visit Hematology/Oncology [facility] [address] [place] [address] Marciano Pagan MD [address] [place] [address] 08/24/2023 2:00 PM EDT Office Visit Cardiology, [facility] 132 [facility] [place] [address] Rosa Elena Ko PA-C [address] [facility] [place] [address] 09/23/2023 11:30 AM EDT Office Visit Pharmacy, [facility] 132 [facility] [place] [address] [facility] [address] [facility] [place] [address] 05/11/2024 2:00 PM EST Office Visit Care at Home [address] [place] [address] Awa Hurd PA-C [address] [place] [address] Scheduled Procedures Name Priority Associated Diagnoses Date/Ti me COLONOSCOPY FLEXIBLE PROXIMAL DIAGNOSTIC Recall History of anal cancer Health Maintenance Due Date Last Done Comments DISCUSS TOBACCO CESSATION (REFER TO SMARTSET #5935) 1955 Alpha-1 Antitrypsin 11/29/1973 Depression Screening 05/22/2020 05/22/2019 Diabetic Eye Exam 01/21/2021 01/22/2020, , 01/10/2016, [...] 03/10/2021, Additional history exists GFR 08/28/2023 08/27/2022, 06/2022, 07/24/2022, Additional history exists Albumin/Creatinine Ratio 04/02/2024 023, 09/09/2021, 05/28/2020, Additional history exists O2 ASSESSMENT COMPLETED IN PAST YEAR FOR COPD 05/11/2024 05/11/2023 COLONOSCOPY-EVERY 5 YRS AGES 18-100 08/23/2025 08/23/2020, 08/23/2020, 06/24/2016, Additional history exists MENINGOCOCCAL (MENACTRA/MENVEO) Aged Out 11/14/2009, 11/14/2009 No longer eligibl e based on patient's age to complete this topic Hepatitis B Completed 02/21/2013, 04/2011, 08/12/2011 VITAMIN D LEVEL ONCE IN A LIFETIME-USE SMARTSET# 10571 Completed 01/23/2019, 08/10/2017, 07/06/2016, Additional history exists [...] this encounter Medical Devices Implanted Type Area Aircraft Worker Device Identifier Shelf Expiration Date Model / Serial / Lot Headless Compression Screw Implanted:Qty: 1 on 07/26/2020 by South Mtz MD at OR [facility] Left: Finger [id number]-8725-24 H / / Description:left middle fing er Ascesion Silicone Pip Finger Implant Implanted:Qty: 1 on 07/26/2020 by South Mtz MD at OR [facility] Left: Finger 06/09/2022 [id number]-520-1 -[id number] / / [id number] Description:middle finger documented as of this encounter Visit Diagnoses Diagnosis Chronic pain syndrome- Primary Anal squamous cell carcinoma (HCC) Malignant neoplasm of anus, unspecified site Anal cancer (HCC) Malignant neoplasm of anus, [...] the patient have Health Care Power of Helmet Coverer? No Full Code 12/09/2020 5:24 PM 12/11/2020 [...] the patient have Health Care Power of Helmet Coverer? No Full Code 02/17/2019 10:07 AM 02/17/2019 4:30 PM This order reflects the patients wishes and were consensually agreed upon. Care Teams Survival Equipment Repairer Relationship Specialty Start Date End Date Sukh Holman MD [address] [facility] [place] [address] PCP - General Family Medicine 07/26/20 documented as of this encounter
--- OUTSIDE RECORDS SUMMARY | 2023-08-15 04:03 | External Medical Summary | Summary of Care ---
Author Name Unknown Organization [facility] Address [address] [place] [address] Phone [phone] Care Team Providers Care Pump Installer Name Role Phone Sukh Holman MD Primary Care Provider [phone] Reason for Visit * Reason Onset Date Comments Medication Refill 06/24/2023 Encounter Details Date Type Department Care Team (Late st Contact Info) Description 06/24/2023 Refill Pharmacy, [facility] [address] [place] [address] [facility] [address] [place] [address] Anal cancer (HCC)*; Anal squamous cell carcinoma (HCC) Allergies Active [...] 45 tablets/month.. 60 Tablet 0 06/24/2023 Active Morphine Sulfate ER 15 MG Oral [...] mRNA, LNP-s, No Pre serve, 2-Dose Series ([employer]) 10/03/2020,09/12/2020 Diptheria/Tetanus Adult (TD) 05/11/2000 H1N1 2009 [...] shopping? (15 years old or older) No 11/22/20 22 Cognitive Status Response Date of Assessm ent Because of a physical, menta l, or emotional condition, do you have serious difficulty concentrating, remembering, or making decisions? (5 years old or older) No 03/03/2022 documented as of this encounter Miscellaneous Notes * Telephone Encounter - Carla Daigle RN - 06/24/2023 2:57 PM EDT Received fax from [facility] request prescription clarification. Per MT note: "REDUCE MS Contin 15mg daily. Second tablet PRN. Max 45 tablets/month." Called [facility], they state that since max is 45 tablets/ month that they should only fill for 45 tablets but rx is written for 60 tablets. Advised that it is ok to fill for 45 tablets. * Telephone Encounter - Zahra Pagan MD - 06/24/2023 12:12 PM EDTSigned Prescriptions: Disp Refills Morphine Sulfate ER 15 MG Oral Tablet Exte*60 Tab*0 Sig: Take 1 Tablet by mouth in the morning and 1 Tablet before bedtime. Max 45 tablets/month..Authorizing Provider: ZAHRA PAGAN * Telephone Encounter - Zahra Pagan MD - 06/24/2023 12:11 PM EDT E-prescribed MS Contin 15 mg every 12 hourly, 60 tablets. * Telephone Encounter - Kristine Devlin RP - 06/24/2023 11:[address] Pagan, Saw pt in [facility] for pain management. Pt agreeable to continue to wean MS Contin. Max 45 tablets/month. Pended Rx below for approval if appropriate. Thanks, Kristine Devlin, PharmD PGY1 [employer] 06/24/2023 11:48 AM documented in this encounter Plan of Treatment Upcoming Encounters Date Type Department Care Team (Late st Contact Info) Description 06/29/2023 12:20 PM EDT Laboratory Laboratory, [facility] [address] [facility] [place] [id number] [facility] [place] [address] 06/29/2023 1:15 PM EDT Office Visit General Surgery, [facility] [address] [facility] [place] [address] Rosa Elena Faith MD [address] [place] [address] 08/10/2023 2:15 PM EDT Office Visit Hematology/Oncology [facility] [address] [facility] [place] [id number] Zahra Pagan MD [address] [facility] [place] [address] 08/24/2023 2:00 PM EDT Office Visit Cardiology, [facility] [address] [place] [address] Rosa Elena Ko PA-C [address] [place] [address] 09/23/2023 11:30 AM EDT Office Visit Pharmacy, [facility] [address] [place] [address] [facility] [address] [place] [address] 05/11/2024 2:00 PM EST Office Visit Care at Home [address] [place] [address] Awa Hurd PA-C [address] [place] [address] Scheduled Procedures Name Priority Associated Diagnoses Date/Ti me COLONOSCOPY FLEXIBLE PROXIMAL DIAGNOSTIC Recall History of anal cancer Health Maintenance Due Date Last Done Comments DISCUSS TOBACCO CESSATION (REFER TO SMARTSET #7510) 1955 Alpha-1 Antitrypsin 11/29/1973 Depression Screening 05/22/2020 [...] 03/10/2021, Additional history exists GFR 08/28/2023 08/27/2022, 0506/2022, 07/24/2022, Additional history exists Albumin/Creatinine Ratio 04/02/2024 [...] D LEVEL ONCE IN A LIFETIME-USE SMARTSET# 63050 Completed 01/23/2019, 08/10/2017, 07/06/2016, Additional history exists [...] this encounter Medical Devices Implanted Type Area Marketing Trainee Device Identifier Shelf Expiration Date Model / Serial / Lot Headless Compression Screw Implanted:Qty: 1 on 07/26/2020 by South Mtz MD at OR [facility] Left: Finger AR-8725-24 H / / Description:left middle fing er Ascesion Silicone Pip Finger Implant Implanted:Qty: 1 on 07/26/2020 by South Mtz MD at OR [facility] Left: Finger 06/09/2022 [id number]-520-1 -[id number] / / [id number] Description:middle finger documented as of this encounter Visit Diagnoses Diagnosis Anal cancer (HCC)- Primary Malignant neoplasm of anus, unspecified site Anal [...] the patient have Health Care Power of Station Detective? No Full Code 12/09/2020 5:24 PM 12/11/2020 [...] the patient have Health Care Power of Station Detective? No Full Code 02/17/2019 10:07 AM 02/17/2019 4:30 PM This order reflects the patients wishes and were consensually agreed upon. Care Teams Pump Installer Relationship Specialty Start Date End Date Sukh Holman MD [address] [place] [address] PCP - General Family Medicine 07/26/20 documented as of this encounter
--- OUTSIDE RECORDS SUMMARY | 2023-08-15 04:03 | External Medical Summary | Summary of Care ---
Author Name Unknown Organization [facility] Address [address] [place] [address] Phone [phone] Care Team Providers Care Community Resource Consultant Name Role Phone Sukh Holman MD Primary Care Provider [phone] Reason for Visit * Reason Onset Date Comments Medication Refill 06/24/2023 Encounter Details Date Type Department Care Team (Late st Contact Info) Description 06/24/2023 Refill Pharmacy, [facility] [address] [place] [address] [facility] [address] [place] [address] Anal cancer (HCC)*; Anal squamous cell carcinoma [...] mRNA, LNP-s, No Pre serve, 2-Dose Series ([employer]) 10/03/2020,09/12/2020 Diptheria/Tetanus Adult (TD) 05/11/2000 H1N1 2009 [...] encounter Miscellaneous Notes * Telephone Encounter - Kristine Devlin RPh - 06/24/2023 3:47 PM EDT MTM agrees with days supply of 45 tablets/month. Kristine Devlin, PharmD PGY1 [employer] 06/24/2023 3:48 PM * Telephone Encounter - Carla Daigle RN - 06/24/2023 2:57 PM EDT Received fax from [facility] request prescription clarification. Per MTM note: "REDUCE MS Contin 15mg daily. Second tablet PRN. Max 45 tablets/month." Called [facility], they state that since max is [...] tablets. * Telephone Encounter - Kristine Devlin RPh - 06/24/2023 11:[address] Pagan, Saw pt in [facility] for pain management. Pt agreeable to continue to wean MS Contin. Max 45 tablets/month. Pended Rx below for approval if appropriate. Thanks, Kristine Devlin, PharmD PGY1 [employer] 06/24/2023 11:48 AM documented in this encounter Plan of Treatment Upcoming Encounters Date Type Department Care Team (Late st Contact Info) Description 06/29/2023 12:20 PM EDT Laboratory Laboratory, [facility] [address] [place] [phone] [address] [address] 06/29/2023 1:15 PM EDT Office Visit General Surgery, [facility] [address] [place] [address] Rosa Elena Faith MD [address] [place] [address] 08/10/2023 2:15 PM EDT [facility] [place] [address] [facility] [place] [phone] Zahra Pagan MD [address] [facility] [place] [address] 08/24/2023 2:00 PM EDT Office Visit Cardiology, [facility] [address] [place] [address] Rosa Elena Ko PA-C [address] [place] [address] 09/23/2023 11:30 AM EDT Office Visit Pharmacy, [facility] [address] [place] [address] [facility] [address] [place] [address] 05/11/2024 2:00 PM EST Office Visit Care at Home [address] [place], [place] [id number] Awa Hurd PA-C [address] [place], [place] [id number] Scheduled Procedures Name Priority Associated Diagnoses Date/Ti me COLONOSCOPY FLEXIBLE PROXIMAL DIAGNOSTIC Recall History of anal cancer Health Maintenance Due Date Last Done Comments DISCUSS TOBACCO CESSATION (REFER TO SMARTSET #3291) 1955 Alpha-1 Antitrypsin 11/29/1973 Depression Screening 05/22/2020 [...] D LEVEL ONCE IN A LIFETIME-USE SMARTSET# 93937 Completed 01/23/2019, 08/10/2017, 07/06/2016, Additional history exists [...] this encounter Medical Devices Implanted Type Area Ward Maid Device Identifier Shelf Expiration Date Model / Serial / Lot Headless Compression Screw Implanted:Qty: 1 on 07/26/2020 by South Mtz MD at OR [facility] Left: Finger AR-8725-24 H / / Description:left middle fing er Ascesion Silicone Pip Finger Implant Implanted:Qty: 1 on 07/26/2020 by South Mtz MD at [facility] Left: Finger 06/09/2022 [id number]-520-1 -[id number] / / [id number] Description:middle finger documented as of this encounter [...] the patient have Health Care Power of Surgical Nurse Practitioner? No Full Code 12/09/2020 5:24 PM 12/11/2020 [...] the patient have Health Care Power of Surgical Nurse Practitioner? No Full Code 02/17/2019 10:07 AM 02/17/2019 4:30 PM This order reflects the patients wishes and were consensually agreed upon. Care Teams Community Resource Consultant Relationship Specialty Start Date End Date Sukh Holman MD 132 [facility] [place] [address] PCP - General Family Medicine 07/26/20 documented as of this encounter
--- OUTSIDE RECORDS SUMMARY | 2023-08-15 04:03 | External Medical Summary | Summary of Care ---
Author Name Unknown Organization [facility] Address [address] [place] [address] Phone [phone] Care Team Providers Care Primer Supervisor Name Role Phone Sukh Holman MD Primary Care Provider [phone] Reason for Visit * Reason Onset Date Comments Precert Approved 05/28/2023 Encounter Details Date Type Department Care Team (Late st Contact Info) Description 05/28/2023 Telephone Hematology/Oncology [facility] [address] [place] [phone] Marciano Pagan MD [address] [place] [address] Precert Approved Allergies Active Allergy Reactions Criticality Noted Date Comments Adhesive Tape Itching,Rash 07/29/2016 Paper tape is fine documented as of this encounter (statuses as of 06/21/2023) Medications Medication Sig Dispensed Refills Start Date End Date Status Blood Glucose Monitoring Suppl (ONE TOUCH ULTRA SYSTEM KIT) W/DEVICE KITIndications:DM type 2 goal A1C below 7.5 Use up to four times a day as directed. Dx: 250.00 1 Kit 0 5 Active aspirin 81 MG chewable tabletIndications: Type 2 diabetes mellitus with hemoglobin A1c [...] 3 Active Furosemide 40 MG Oral Tablet (Lasix)Indications :Edema Take 1 Tablet by mouth in the morning. May take an additional tablet as needed for increased edema.. 120 Tablet 3 3 Active DULoxetine HCl 30 MG Oral Capsule Delayed Release Particles (Cymbalta)Indicati ons:Fibromyalgia Take 2 Capsules by mouth in the morning. 180 Capsule 3 3 Active Meloxicam 15 MG Oral TabletIndications: Fibromyalgia TAKE 1 TABLET BY MOUTH EVERY DAY FOR PAIN 90 Tablet 3 3 Active Trelegy Ellipta 200-62.5-25 MCG/ACT Aerosol Powder Breath Activated (Fluticasone-Umecl idinium-Vilanterol ) INHALE 1 PUFF BY MOUTH IN THE MORNING 180 Each 1 3 Active rOPINIRole HCl 3 MG Oral Tablet TAKE 1 TABLET BY MOUTH EVERYDAY AT BEDTIME 90 Tablet 3 3 Active Albuterol Sulfate HFA 108 (90 Base) MCG/ACT Inhalation Aerosol SolutionIndication s:Shortness of breath,Acute bronchospasm INHALE 2 PUFFS BY MOUTH EVERY 4 HOURS NEEDED FOR SORE THROAT OR WHEEZING. 18 g 5 4 Active Alendronate Sodium 70 MG Oral Tablet (Fosamax)Indicatio ns:weekly on sundays TAKE 1 TABLET (70 MG) BY MOUTH ONCE A WEEK 12 Tablet 1 4 Active Prochlorperazine Maleate 10 MG Oral Tablet (Compazine)Indicat ions:Anal cancer (HCC) TAKE 1 TABLET BY MOUTH EVERY 6 HOURS NEEDED FOR NAUSEA 60 Tablet 2 4 Active traZODone HCl 50 MG Oral Tablet (Desyrel)Indicatio ns:Persistent insomnia TAKE 1 TABLET BY MOUTH EVERYDAY AT BEDTIME 90 Tablet 1 4 Active Morphine Sulfate ER 15 MG Oral Tablet Extended Release (Ms Contin)Indications :Anal cancer (HCC),Anal squamous cell carcinoma (HCC) Take 1 Tablet by mouth in the morning and 1 Tablet before bedtime. 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) TAKE 1 TABLET BY MOUTH TWICE A DAY WITH MORNING MEAL AND EVENING MEAL 180 Tablet 1 4 Active Propranolol HCl 20 MG Oral Tablet (Inderal)Indicatio ns:Essential tremor TAKE 1 TABLET BY MOUTH IN THE MORNING AND BEFORE BEDTIME 180 Tablet 3 4 Active Fluticasone Propionate 50 MCG/ACT Nasal Suspension (Flonase)Indicatio ns:Postnasal drip USE 2 SPRAY(S) IN EACH NOSTRIL ONCE DAILY 48 g 5 3 06/14/19 24 Discontinued(Re fill) buPROPion HCl ER (XL) 150 MG Oral Tablet Extended Release 24 Hour (Wellbutrin XL)Indications:Fib romyalgia,Depressi on TAKE 1 TABLET BY MOUTH EVERY DAY 90 Tablet 3 3 06/16/19 24 Discontinued Cyclobenzaprine HCl 10 MG Oral Tablet (Flexeril)Indicati ons:Spasm of muscle TAKE 1 TABLET BY MOUTH THREE TIMES A DAY 270 Tablet 3 3 06/15/19 24 Discontinued Gabapentin 600 MG Oral Tablet (Neurontin)Indicat ions:Diabetic polyneuropathy associated with type 2 diabetes mellitus (HCC) TAKE 1 TAB BY MOUTH IN MORNING, AT NOON, AND BEFORE BEDTIME, FOR A TOTAL AMOUNT OF THREE TIMES A DAY 90 Tablet 3 3 06/15/19 24 Discontinued Pantoprazole Sodium 40 MG Oral Tablet Delayed Release (Protonix)Indicati ons:Reflux esophagitis TAKE 1 TABLET BY MOUTH EVERY DAY IN THE MORNING Strength: 40 mg 90 Tablet 1 3 06/15/19 24 Discontinued Atorvastatin Calcium 20 MG Oral Tablet (Lipitor)Indicatio ns:Dyslipidemia, goal LDL below 100 TAKE 1 TABLET BY MOUTH EVERY DAY 90 Tablet 0 3 06/06/19 24 Discontinued Ondansetron HCl 8 MG Oral Tablet (Zofran)Indication s:Anal cancer (HCC) TAKE 1 TABLET BY MOUTH EVERY 8 HOURS NEEDED FOR NAUSEA 30 Tablet 3 4 06/14/19 24 Discontinued(Re fill) HYDROmorphone HCl 4 MG Oral Tablet (Dilaudid)Indicati ons:Anal squamous cell carcinoma (HCC) Take 1 Tablet by mouth every 4 hours as needed for Pain, Moderate. 60 Tablet 0 4 06/14/19 24 Discontinued(Re fill) documented as of this encounter (statuses as of 06/21/2023) Active Problems Problem Noted Date Diagnosed Date [...] as of this encounter (statuses as of 06/21/2023) Resolved Problems Problem Noted Date Diagnosed Date [...] as of this encounter (statuses as of 06/21/2023) Immunizations Name Administration Dates Next Due COVID-19 mRNA, LNP-s, No Pre serve, 2-Dose Series (Multispan) 10/03/2020,09/12/2020 Diptheria/Tetanus Adult (TD) 05/11/2000 H1N1 2009 [...] encounter Miscellaneous Notes * Telephone Encounter - Jaqueline Arnold OSA - 06/18/2023 1:22 PM EST New or re-auth: New authorization Approved/Denied: Approved Drug Name and Formulation: HYDROmorphone HCl 4 MG Oral Tablet (Dilaudid) How Prescribed(directions/sig): Take 1 tablet by mouth every 4 hours as needed for pain, moderate. Day Supply: 10 Did you receive insurance information from outside the chart? No, received insurance information within the chart Valid auth start date: 06/18/2023 Valid auth end date: Open-ended Rx Insurance Info: Jeb GONZALEZ Reference #: [id number] Rx Benefits Verified through/on date: 06/18/2023 Referral (TE) received from: Prescribing Clinic Thank you, Jaqueline Arnold Medication Adjunct Lecturer 06/18/2023, 1:22 PM * Telephone Encounter - Shira Thakur MED ASSIST - 06/18/2023 8:11 AM EST Patient insurance info has been updated. * Telephone Encounter - Carla Daigle RN - 06/18/2023 7:46 AM EST Scheduling: please update patients demographics with new insurance information. Thanks! * Telephone Encounter - Jaqueline Arnold OSA - 06/17/2023 4:25 PM EST [facility] Authorization Submission Submission Information: Medication: HYDROmorphone HCl 4 MG Oral Tablet (Dilaudid) Portal used: PromptPA Insurance: Viral Garcia Authorization #/[place]: [id number] Thank you, Jaqueline Arnold Medication Adjunct Lecturer 06/17/2023, 4:26 PM * Telephone Encounter - Rohan Pires RN - 06/17/2023 3:55 PM EST Pre-cert: Patient previously had [employer] Medicare but recently switched to [employer] on 06/10. Her insurance is saying she needs an auth for Dilaudid. Please submit a new authorization to patients insurance for coverage of Dilaudid. * Telephone Encounter - Kamini Shirley OSA - 06/01/2023 2:41 PM EST Images from the original note were not included. Message received from Tamika Johnston RN that pharmacy claims they are unable to process Dilaudid. Didn't specify that it's requiring PA, but that it has to do with authorization. Confirmed that it is [employer] they are trying to process through, attempted PA on CMM again, and again received same result, that it is availabe without authorization. Advised RN that it may be some type of override needed and, unfortunately, precert is unable to assist with that. The clinic or pharmacy will need to request whatever override is needed. Kamini Shirley Medication Adjunct Lecturer P: [phone] F: [phone] 06/01/2023,2:44 PM * Telephone Encounter - Kamini Shirley OSA - 05/31/2023 7:13 AM EST Images from the original note were not included. New or re-auth: New authorization Approved/Denied: PA not needed Drug Name and Formulation: HYDROmorphone HCl 4MG tablet How Prescribed(directions/sig): Take 1 Tablet by mouth every 4 hours as needed for Pain, Moderate Day Supply: 15 Did you receive insurance information from outside the chart? No, received insurance information within the chart Valid auth start date: N/A Valid auth end date: N/A Rx Insurance Info: [employer] [place] Reference #: N/A Rx Benefits Verified through/on date: 05/31/23 Referral (TE) received from: Prescribing Clinic Kamini Shirley Medication Adjunct Lecturer P: [phone] F: [phone] 05/31/2023,7:14 AM * Telephone Encounter - Rohan Pires RN - 05/28/2023 4:21 PM EST Please submit as urgent. ICD-10: Anal squamous cell carcinoma (HCC) [C21.0] Start date: BARBY Drugs: HYDROmorphone HCl 4 MG Oral Tablet (Dilaudid) Physician: Dr. Marciano Pagan documented in this encounter Plan of Treatment Upcoming Encounters Date Type Department Care Team (Late st Contact Info) Description 06/21/2023 1:00 PM EDT Laboratory Laboratory, [facility] [address] [facility] [place] [phone] [facility] [address] [place] [address] 06/24/2023 11:30 AM EDT Office Visit Pharmacy, [facility] [address] [place] [address] [facility] 132 [facility] [place] [address] 06/29/2023 1:15 PM EDT Office Visit General Surgery, [facility] [address] [address] Rosa Elena Faith MD [address] [facility] [address] 08/10/2023 2:15 PM EDT Office Visit Hematology/On[facility] [place] [address] [facility] [place] [address] Marciano Pagan MD [address] [place] [address] 08/24/2023 2:00 PM EDT Office Visit Cardiology, [facility] [address] [place] [address] Rosa Elena Ko PA-C [address] [place] [address] 05/11/2024 2:00 PM EST Office Visit Care at Home [address] [place] [address] Awa Hurd PA-C [address] [place], [place] [phone] Scheduled Procedures Name Priority Associated Diagnoses Date/Ti [...] D LEVEL ONCE IN A LIFETIME-USE SMARTSET# [id number] Completed 01/23/2019, 08/10/2017, 07/06/2016, Additional history exists [...] this encounter Medical Devices Implanted Type Area Heavy Duty Press Operator Device Identifier Shelf Expiration Date Model / Serial / Lot Headless Compression Screw Implanted:Qty: 1 on 07/26/2020 by South Mtz MD at OR [facility] Left: Finger AR-8725-24 H / / Description:left middle fing er Ascesion Silicone Pip Finger Implant Implanted:Qty: 1 on 07/26/2020 by South Mtz MD at OR [facility] Left: Finger 06/09/2022 SPIP-520-1 -[id number] / / [id number] Description:middle finger documented as of this encounter [...] the patient have Health Care Power of Community Aide? No Full Code 12/09/2020 5:24 PM 12/11/2020 [...] the patient have Health Care Power of Community Aide? No Full Code 02/17/2019 10:07 AM 02/17/2019 4:30 PM This order reflects the patients wishes and were consensually agreed upon. Care Teams Primer Supervisor Relationship Specialty Start Date End Date Sukh Holman MD [address] [facility] [place] [address] PCP - General Family Medicine 07/26/20 documented as of this encounter
--- OUTSIDE RECORDS SUMMARY | 2023-08-15 04:03 | External Medical Summary | Summary of Care ---
Author Name Unknown Organization [facility] Address [address] [place] [address] Phone [phone] Care Team Providers Care Clam Grower Name Role Phone Sukh Holman MD Primary Care Provider [phone] Encounter Details Date Type Department Care Team (Late st Contact Info) Description 06/22/2023 Population Health External Data Unspecified Department Allergies Active Allergy Reactions Criticality Noted Date Comments Adhesive Tape Itching,Rash 07/29/2016 Paper tape is fine documented as of this encounter (statuses as of 06/22/2023) Medications Medication Sig Dispensed Refills Start Date [...] AT BEDTIME 90 Tablet 1 05/06/2023 Active Morphine Sulfate ER 15 MG Oral Tablet Extended Release (Ms Contin)Indications:A nal cancer (HCC),Anal squamous cell carcinoma (HCC) Take 1 Tablet by mouth in the morning and 1 Tablet before bedtime. 60 Tablet 0 05/12/2023 Active metFORMIN HCl 1000 MG Oral Tablet [...] 06/15/2023 Active Gabapentin 600 MG Oral Tablet (Neurontin)Indicatio ns:Diabetic [...] EVERY DAY 90 Tablet 1 06/16/2023 Active documented as of this encounter (statuses as of 06/22/2023) Active Problems Problem Noted Date Diagnosed Date [...] as of this encounter (statuses as of 06/22/2023) Resolved Problems Problem Noted Date Diagnosed Date [...] as of this encounter (statuses as of 06/22/2023) Immunizations Name Administration Dates Next Due COVID-19 [...] 06/24/2023 11:30 AM EDT Office Visit Pharmacy, [facility] [address] [place] [address] [facility] [address] [place] [address] 06/29/2023 1:15 PM EDT Office Visit General Surgery, [facility] [address] [place] [address] Rosa Elena Faith MD [address] [place] [address] 08/10/2023 2:15 PM EDT Office Visit Hematology/Oncology [facility] [address] [facility] [place], [place] [address] Marciano Pagan MD [address] [facility] [place] [address] 08/24/2023 2:00 PM EDT Office Visit Cardiology, [facility] [address] [place] [address] Rosa Elena Ko PAWilfred [address] [place] [address] 05/11/2024 2:00 PM EST Office Visit Care at Home [address] [place] [address] Awa Hurd PA-C [address] [place], [place] [phone] Scheduled Procedures Name Priority Associated Diagnoses Date/Ti me COLONOSCOPY FLEXIBLE PROXIMAL DIAGNOSTIC Recall History of anal cancer Health Maintenance Due Date Last Done Comments DISCUSS TOBACCO CESSATION (REFER TO SMARTSET #4892) 1955 Alpha-1 Antitrypsin 11/29/1973 Depression Screening 05/22/2020 [...] D LEVEL ONCE IN A LIFETIME-USE SMARTSET# 72029 Completed 01/23/2019, 08/10/2017, 07/06/2016, Additional history exists [...] this encounter Medical Devices Implanted Type Area Forest Pathology Professor Device Identifier Shelf Expiration Date Model / Serial / Lot Headless Compression Screw Implanted:Qty: 1 on 07/26/2020 by South Mtz MD at OR [facility] Left: Finger AR-8725-24 H / / Description:left middle fing er Ascesion Silicone Pip Finger Implant Implanted:Qty: 1 on 07/26/2020 by South Mtz MD at OR [facility] Left: Finger 06/09/2022 SPIP-520-1 -[id number] / / [id number] Description:middle finger documented as of this encounter [...] the patient have Health Care Power of Customs Opener Verifier Packer? No Full Code 12/09/2020 5:24 PM 12/11/2020 [...] the patient have Health Care Power of Customs Opener Verifier Packer? No Full Code 02/17/2019 10:07 AM 02/17/2019 4:30 PM This order reflects the patients wishes and were consensually agreed upon. Care Teams Clam Grower Relationship Specialty Start Date End Date Sukh Holman MD [address] [place] [address] PCP - General Family Medicine 07/26/20 documented as of this encounter
--- OUTSIDE RECORDS SUMMARY | 2023-08-15 04:03 | External Medical Summary | Summary of Care ---
Author Name Unknown Organization [facility] Address [address] [place] [address] Phone [phone] Care Team Providers Care Commissioned Defence Force Officer Name Role Phone Sukh Holman MD Primary Care Provider [phone] Reason for Visit * Reason Comments Dosage Adjustment In Person (Anticoag Cl inic) Pain Encounter Details Date Type Department Care Team (Late st Contact Info) Description 06/24/2023 11:30 AM EDT Office Visit Pharmacy, [facility] [address] [facility] [address] [facility] 132 [place] [address] Chronic pain syndrome*; Anal squamous cell carcinoma [...] mRNA, LNP-s, No Pre serve, 2-Dose Series ([employer]) 10/03/2020,09/12/2020 H1N1 2009 Influenza, IM 05/03/2009 Hepatitis [...] (15 years old or older) No 03/03/20 22 Cognitive Status Response Date of Assessm ent Because of a physical, menta l, or emotional condition, do you have serious difficulty concentrating, remembering, or making decisions? (5 years old or older) No 03/03/2022 documented as of this encounter Progress Notes * Kristine Devlin, [facility] - 06/23/2023 10:04 PM EDT Images [...] Medication Use Agreement: on file Patient's Pharmacy: [facility] CHIEF COMPLAINT: cancer pain/wean HPI: States overall she is doing well. Pain stable. Notes reduced to 1 morphine daily Notes continued use of 3-4 hydromorphone daily [...] 09/23/2023 Kristine Devlin RPh Clinical Pharmacist - Digital Producer [facility] 06/23/2023, 10:05 PM documented in this encounter Plan of Treatment Upcoming Encounters Date Type Department Care Team (Late st Contact Info) Description 06/29/2023 1:15 PM EDT Office Visit General Surgery, [facility] [address] [place] [address] Rosa Elena Faith MD [address] [place] [address] 08/10/2023 2:15 PM EDT Office Visit Hematology/Oncology [facility] [address] [facility] [place] [phone] Marciano Pagan MD [address] [facility] [place] [address] 08/24/2023 2:00 PM EDT Office Visit Cardiology, [facility] [address] [place] [address] Rosa Elena Ko PA-C [address] [place] [address] 09/23/2023 11:30 AM EDT Office Visit Pharmacy, [facility] [address] [place] [address] [facility] [address] [place] [address] 05/11/2024 2:00 PM EST Office Visit Care at Home [address] [place] [address] Awa Hurd PA-C [address] [facility] [place], [place] [phone] Scheduled Procedures Name Priority Associated Diagnoses Date/Ti me COLONOSCOPY FLEXIBLE PROXIMAL DIAGNOSTIC Recall History of anal cancer Health Maintenance Due Date Last Done Comments DISCUSS TOBACCO CESSATION (REFER TO SMARTSET #3871) 1955 Alpha-1 Antitrypsin 11/29/1973 Depression Screening 05/22/2020 [...] D LEVEL ONCE IN A LIFETIME-USE SMARTSET# [id number] Completed 01/23/2019, 08/10/2017, 07/06/2016, Additional history exists [...] this encounter Medical Devices Implanted Type Area Credit Investigator Device Identifier Shelf Expiration Date Model / Serial / Lot Headless Compression Screw Implanted:Qty: 1 on 07/26/2020 by South Mtz MD at OR [facility] Left: Finger AR-8725-24 H / / Description:left middle fing er Ascesion Silicone Pip Finger Implant Implanted:Qty: 1 on 07/26/2020 by South Mtz MD at OR [facility] Left: Finger 06/09/2022 SPIP-520-1 -[id number] / / [id number] Description:middle finger documented as of this encounter [...] the patient have Health Care Power of Tactical Debriefer? No Full Code 12/09/2020 5:24 PM 12/11/2020 [...] the patient have Health Care Power of Tactical Debriefer? No Full Code 02/17/2019 10:07 AM 02/17/2019 4:30 PM This order reflects the patients wishes and were consensually agreed upon. Care Teams Commissioned Defence Force Officer Relationship Specialty Start Date End Date Sukh Holman MD [address] [facility] [place] [address] PCP - General Family Medicine 07/26/20 documented as of this encounter
--- OUTSIDE RECORDS SUMMARY | 2023-08-15 04:03 | External Medical Summary | Summary of Care ---
Author Name Unknown Organization [facility] Address [address] [place] [address] Phone [phone] Care Team Providers Care Geriatrics Physician Name Role Phone Sukh Holman MD Primary Care Provider [phone] Reason for Visit * Reason Onset Date Comments Medication Refill 06/25/2023 Encounter Details Date Type Department Care Team (Late st Contact Info) Description 06/25/2023 Refill Family Practice [facility] [address] [facility] [place] [address] Sukh Holman MD [address] [facility] [address] Reflux esophagitis Allergies Active Allergy Reactions Criticality Noted Date Comments Adhesive Tape Itching,Rash 07/29/2016 Paper tape is fine documented as of this encounter (statuses as of 06/25/2023) Medications Medication Sig Dispensed Refills Start Date End Date Status Blood Glucose Monitoring Suppl (ONE TOUCH ULTRA SYSTEM KIT) W/DEVICE KITIndications:DM type 2 goal A1C below 7.5 Use up to four times a day as directed. Dx: 250.00 1 Kit 0 01/02/2015 Active aspirin 81 MG chewable tabletIndications:Ty pe 2 diabetes mellitus with hemoglobin A1c goal of less than 7.5% ([facility]) Take 1 Tab by [...] as of this encounter (statuses as of 06/25/2023) Active Problems Problem Noted Date Diagnosed Date [...] as of this encounter (statuses as of 06/25/2023) Resolved Problems Problem Noted Date Diagnosed Date [...] as of this encounter (statuses as of 06/25/2023) Immunizations Name Administration Dates Next Due COVID-19 mRNA, LNP-s, No Pre serve, 2-Dose Series (BabyGlowz) 10/03/2020,09/12/2020 H1N1 2009 Influenza, IM 05/03/2009 Hepatitis [...] encounter Miscellaneous Notes * Telephone Encounter - Ana Paula Molina - 06/25/2023 7:24 PM EDTRefused Prescriptions: Disp Refills Pantoprazole Sodium 40 MG Oral Tablet Rosa*90 Tab*1 Sig: TAKE 1TABLET BY MOUTH EVERY DAY IN THE MORNINGRefused By: IAH, INBASKETReason for Refusal: Duplicate Reque st documented in this encounter Plan of Treatment Upcoming Encounters Date Type Department Care Team (Late st Contact Info) Description 06/29/2023 12:20 PM EDT Laboratory Laboratory, [facility] [address] [place] [phone] PeresCecilia ndiaye [facility] [address] [place] [address] 06/29/2023 1:15 PM EDT Office Visit General Surgery, [facility] [address] [place] [address] Rosa Elena Faith MD [address] [place] [address] 08/10/2023 2:15 PM EDT Office Visit Hematology/Oncology [facility] [address] [facility] [place] [phone] Marciano Pagan MD [address] [facility] [place] [address] 08/24/2023 2:00 PM EDT Office Visit Cardiology, [facility] [address] [place] [address] Rosa Elena Ko PA-C [address] [place] [address] 09/23/2023 11:30 AM EDT Office Visit Pharmacy, [facility] [address] [address] [facility] [address] [place] [address] 05/11/2024 2:00 PM EST [facility] [address] [facility] [place] [address] Awa Hurd PA-C [address] [facility] [place] [phone] Scheduled Procedures Name Priority Associated Diagnoses Date/Ti me COLONOSCOPY FLEXIBLE PROXIMAL DIAGNOSTIC Recall History of anal cancer Health Maintenance Due Date Last Done Comments DISCUSS TOBACCO CESSATION (REFER TO SMARTSET #6646) 1955 Alpha-1 Antitrypsin 11/29/1973 Diabetic Eye Exam [...] D LEVEL ONCE IN A LIFETIME-USE SMARTSET# [id number] Completed 01/23/2019, 08/10/2017, 07/06/2016, Additional history exists [...] this encounter Medical Devices Implanted Type Area Auto Transmission Specialist Device Identifier Shelf Expiration Date Model / Serial / Lot Headless Compression Screw Implanted:Qty: 1 on 07/26/2020 by South Mtz MD at OR [facility] Left: Finger AR-8725-24 H / / Description:left middle fing er Ascesion Silicone Pip Finger Implant Implanted:Qty: 1 on 07/26/2020 by South Mtz MD at [facility] Left: Finger 06/09/2022 SPIP-520-1 -[id number] / / [id number] Description:middle finger documented as of this encounter Visit Diagnoses Diagnosis Reflux esophagitis documented in this encounter Advance Directives Latest [...] the patient have Health Care Power of Metal Fabricator Apprentice? No Full Code 12/09/2020 5:24 PM 12/11/2020 [...] the patient have Health Care Power of Metal Fabricator Apprentice? No Full Code 02/17/2019 10:07 AM 02/17/2019 4:30 PM This order reflects the patients wishes and were consensually agreed upon. Care Teams Geriatrics Physician Relationship Specialty Start Date End Date Sukh Holman MD [address] [address] PCP - General Family Medicine 07/26/20 documented as of this encounter
--- OUTSIDE RECORDS SUMMARY | 2023-08-15 04:03 | External Medical Summary | Summary of Care ---
Author Name Unknown Organization [facility] Address [address] [place] [address] Phone [phone] Care Team Providers Care Production Dispatcher Name Role Phone Sukh Holman MD Primary Care Provider [phone] Reason for Visit * Reason Onset Date Comments Medication Refill 06/24/2023 Encounter Details Date Type Department Care Team (Late st Contact Info) Description 06/24/2023 Refill Pharmacy, [facility] [address] [facility] [place] [address] [facility] [address] [place] [address] Anal cancer (HCC)*; Anal squamous cell carcinoma [...] mRNA, LNP-s, No Pre serve, 2-Dose Series ([employer]) 10/03/2020,09/12/2020 H1N1 2009 Influenza, IM 05/03/2009 Hepatitis [...] EDT Hi Dr. Pagan, Saw pt in [facility] for pain management. Pt agreeable to continue to wean MS Contin. Max 45 tablets/month. Pended Rx below for approval if appropriate. Thanks, Kristine Devlin, PharmD PGY1 Tour Actor 06/24/2023 11:48 AM documented in this encounter Plan of Treatment Upcoming Encounters Date Type Department Care Team (Late st Contact Info) Description 06/29/2023 1:15 PM EDT Office Visit General Surgery, [address] [address] Rosa Elena Faith MD [address] [place] [address] 08/10/2023 2:15 PM EDT [facility] [place] [phone] Zahra Pagan MD 200 [facility] [place] [address] 08/24/2023 2:00 PM EDT Office Visit Cardiology, [facility] [address] [facility] [place] [address] Rosa Elena Ko PA-C [address] [place] [address] 09/23/2023 11:30 AM EDT Office Visit Pharmacy, [facility] [place] [address] [facility] 132 [facility] [place] [address] 05/11/2024 2:00 PM EST Office Visit Care at Home [address] [place], [place] [phone] Awa Hurd PA-C [address] [place], [place] [phone] Scheduled Procedures Name Priority Associated Diagnoses Date/Ti [...] 03/10/2021, Additional history exists GFR 08/28/2023 08/27/2022, 0 06/2022, 07/24/2022, Additional history exists Albumin/Creatinine Ratio [...] D LEVEL ONCE IN A LIFETIME-USE SMARTSET# 68119 Completed 01/23/2019, 08/10/2017, 07/06/2016, Additional history exists [...] this encounter Medical Devices Implanted Type Area Refrigeration Supervisor Device Identifier Shelf Expiration Date Model / Serial / Lot Headless Compression Screw Implanted:Qty: 1 on 07/26/2020 by South Mtz MD at OR [facility] Left: Finger AR-8725-24 H / / Description:left middle fing er Ascesion Silicone Pip Finger Implant Implanted:Qty: 1 on 07/26/2020 by South Mtz MD at OR [facility] Left: Finger 06/09/2022 SPIP-520-1 -[id number] / / [id number] Description:middle finger documented as of this encounter [...] the patient have Health Care Power of Hogshead Hooper? No Full Code 12/09/2020 5:24 PM 12/11/2020 [...] the patient have Health Care Power of Hogshead Hooper? No Full Code 02/17/2019 10:07 AM 02/17/2019 4:30 PM This order reflects the patients wishes and were consensually agreed upon. Care Teams Production Dispatcher Relationship Specialty Start Date End Date Sukh Holman MD 132 [facility] [place] [address] PCP - General Family Medicine 07/26/20 documented as of this encounter
--- OUTSIDE RECORDS SUMMARY | 2023-08-15 04:04 | External Medical Summary | Summary of Care ---
Author Name Unknown Organization [facility] Address [address] [facility] [place] [address] Phone [phone] Care Team Providers Care Ammonia Refrigeration Worker Name Role Phone Sukh Holman MD Primary Care Provider [phone] [phone] Encounter Details Date Type Department Care Team (Late st Contact Info) Description 06/18/2023 Orders Only PATIENT PORTAL DO NOT DELETE THIS DEPT USED BY [place] [id number] Allergies Active Allergy Reactions Criticality Noted Date Comments Adhesive Tape Itching,Rash 07/29/2016 Paper tape is fine documented as of this encounter (statuses as of 06/18/2023) Medications Medication Sig Dispensed Refills Start Date End Date Status Blood Glucose Monitoring Suppl (ONE TOUCH ULTRA SYSTEM KIT) W/DEVICE KITIndications:DM type 2 goal A1C below 7.5 Use up to four times a day as directed. Dx: 250.00 1 Kit 0 01/02/2015 Active aspirin 81 MG chewable tabletIndications:Ty pe 2 diabetes mellitus with hemoglobin A1c goal of less than 7.5% ([facility]) Take 1 Tab by mouth daily. with [...] as of this encounter (statuses as of 06/18/2023) Active Problems Problem Noted Date Diagnosed Date [...] as of this encounter (statuses as of 06/18/2023) Resolved Problems Problem Noted Date Diagnosed Date [...] as of this encounter (statuses as of 06/18/2023) Immunizations Name Administration Dates Next Due COVID-19 [...] AM EDT Office Visit Pharmacy, [facility] [address] [place] [address] [facility] [address] [place] [address] 06/29/2023 1:15 PM EDT Office Visit General Surgery, [facility] [address] [place] [address] Rosa Elena Faith MD [address] [place] [address] 08/10/2023 2:15 PM EDT Office Visit [facility] [address] [facility] [place] [phone] Marciano Pagan MD 200 [facility] [place] [address] 08/24/2023 2:00 PM EDT Office Visit Cardiology, [facility] [address] [facility] [place] [address] Rosa Elena Ko PA-C [address] [place] [address] 05/11/2024 2:00 PM EST Office Visit Care at Home [address] [place], [place] [phone] Awa Hurd PA-C [address] [place] [address] Scheduled Procedures Name Priority Associated Diagnoses Date/Ti me COLONOSCOPY FLEXIBLE PROXIMAL DIAGNOSTIC Recall History of anal cancer Health Maintenance Due Date Last Done Comments DISCUSS TOBACCO CESSATION (REFER TO SMARTSET #1696) 1955 Alpha-1 Antitrypsin 11/29/1973 Depression Screening 05/22/2020 [...] D LEVEL ONCE IN A LIFETIME-USE SMARTSET# 35347 Completed 01/23/2019, 08/10/2017, 07/06/2016, Additional history exists [...] this encounter Medical Devices Implanted Type Area Lipcoat Sprayer Device Identifier Shelf Expiration Date Model / Serial / Lot Headless Compression Screw Implanted:Qty: 1 on 07/26/2020 by South Mtz MD at OR [facility] Left: Finger AR-8725-24 H / / Description:left middle fing er Ascesion Silicone Pip Finger Implant Implanted:Qty: 1 on 07/26/2020 by South Mtz MD at OR [facility] Left: Finger 06/09/2022 SPIP-520-1 -WW / / [id number] Description:middle finger documented as of this encounter [...] the patient have Health Care Power of Building Wrecker? No Full Code 12/09/2020 5:24 PM 12/11/2020 [...] the patient have Health Care Power of Building Wrecker? No Full Code 02/17/2019 10:07 AM 02/17/2019 4:30 PM This order reflects the patients wishes and were consensually agreed upon. Care Teams Ammonia Refrigeration Worker Relationship Specialty Start Date End Date Sukh Holman MD [address] [place] [address] PCP - General Family Medicine 07/26/20 documented as of this encounter
--- OUTSIDE RECORDS SUMMARY | 2023-08-15 04:04 | External Medical Summary | Summary of Care ---
Author Name Unknown Organization [facility] Address [address] [place] [address] Phone [phone] Care Team Providers Care Motor Bike Mechanic Name Role Phone Sukh Holman MD Primary Care Provider [phone] Reason for Visit * Reason Onset Date Comments Precert Pending 05/28/2023 Jqaueline Encounter Details Date Type Department Care Team (Late st Contact Info) Description 05/28/2023 Telephone Hematology/Oncology [facility] [place] [address] Marciano Pagan MD [address] [facility] [place] [address] Precert Pending (Jaqueline) Allergies Active Allergy Reactions Criticality Noted Date [...] A1c goal of less than 7.5% ([facility]) Take 1 Tab by mouth daily. with [...] mRNA, LNP-s, No Pre serve, 2-Dose Series ([employer]) 10/03/2020,09/12/2020 Diptheria/Tetanus Adult (TD) 05/11/2000 H1N1 2009 [...] encounter Miscellaneous Notes * Telephone Encounter - Shira Thakur MED ASSIST - 06/18/2023 8:11 AM EST Patient insurance info has been updated. * Telephone Encounter - Carla Daigle RN - 06/18/2023 7:46 AM EST Scheduling: please update patients demographics with new insurance information. Thanks! * Telephone Encounter - Jaqueline Arnold OSA - 06/17/2023 4:25 PM EST [facility] Authorization Submission Submission Information: Medication: HYDROmorphone HCl 4 MG Oral Tablet (Dilaudid) Portal used: [facility] Insurance: [employer] Authorization #/[place]: [id number] Thank you, Jaqueline Arnold Medication Extrusion Bender 06/17/2023, 4:26 PM * Telephone Encounter - Rohan Pires RN - 06/17/2023 3:55 PM EST Pre-cert: Patient previously had [employer] Medicare but recently switched to [employer] on 06/10. Her insurance is saying [...] whatever override is needed. Kamini Shirley Medication Extrusion Bender P: [phone] F: [phone] 06/01/2023,2:44 PM * Telephone Encounter - Kamini [...] received from: Prescribing Clinic Kamini Shirley Medication Extrusion Bender P: [phone] F: [phone] 05/31/2023,7:14 AM * Telephone Encounter - Rohan [...] 06/24/2023 11:30 AM EDT Office Visit [facility] [address] [facility] [address] [place] [address] 06/29/2023 1:15 PM EDT Office Visit General Surgery, [facility] [address] [place] [address] Rosa Elena Faith MD [address] [place] [address] 08/10/2023 2:15 PM EDT Office Visit Hematology/Oncology [facility] [address] [place] [address] Marciano Pagan MD [address] [place] [address] 08/24/2023 2:00 PM EDT Office Visit Cardiology, [facility] [address] [place] [address] Rosa Elena Ko PA-C 132 [facility] [place] [address] 05/11/2024 2:00 PM EST Office Visit Care at Home [address] [place], [place] [phone] Awa Hurd PA-C [address] [place], [place] [phone] Scheduled Procedures Name Priority Associated Diagnoses Date/Ti me COLONOSCOPY FLEXIBLE PROXIMAL DIAGNOSTIC Recall History of anal cancer Health Maintenance Due Date Last Done Comments DISCUSS TOBACCO CESSATION (REFER TO SMARTSET #2843) 1955 Alpha-1 Antitrypsin 11/29/1973 Depression Screening 05/22/2020 [...] complete this topic Hepatitis B Completed 02/21/2013, 0 04/2011, 08/12/2011 VITAMIN D LEVEL ONCE IN A LIFETIME-USE SMARTSET# 77490 Completed 01/23/2019, 08/10/2017, 07/06/2016, Additional history exists [...] this encounter Medical Devices Implanted Type Area Test Clerk Device Identifier Shelf Expiration Date Model / Serial / Lot Headless Compression Screw Implanted:Qty: 1 on 07/26/2020 by South Mtz MD at OR [facility] Left: Finger AR-8725-24 H / / Description:left middle fing er Ascesion Silicone Pip Finger Implant Implanted:Qty: 1 on 07/26/2020 by South Mtz MD at OR [facility] Left: Finger 06/09/2022 SPIP-520-1 -WW / / [id number] Description:middle finger documented as of this encounter [...] the patient have Health Care Power of Worm Raiser? No Full Code 12/09/2020 5:24 PM 12/11/2020 [...] the patient have Health Care Power of Worm Raiser? No Full Code 02/17/2019 10:07 AM 02/17/2019 4:30 PM This order reflects the patients wishes and were consensually agreed upon. Care Teams Motor Bike Mechanic Relationship Specialty Start Date End Date Sukh Holman MD [address] [place] [address] PCP - General Family Medicine 07/26/20 documented as of this encounter
--- OUTSIDE RECORDS SUMMARY | 2023-08-15 04:04 | External Medical Summary | Summary of Care ---
Author Name Unknown Organization [facility] Address [address] [place] [address] Phone [phone] Care Team Providers Care Pneumatic Tube Operator Name Role Phone Sukh Holman MD Primary Care Provider [phone] Reason for Visit * Reason Onset Date Comments Precert Approved 05/28/2023 Encounter Details Date Type Department Care Team (Late st Contact Info) Description 05/28/2023 Telephone Hematology/Oncology [facility] [address] [place] [facility] [place] [phone] Marciano Pagan MD [address] [place] [facility] [place] [address] Precert Approved Allergies Active Allergy Reactions Criticality [...] mRNA, LNP-s, No Pre serve, 2-Dose Series ([employer]) 10/03/2020,09/12/2020 Diptheria/Tetanus Adult (TD) 05/11/2000 H1N1 2009 [...] Rx Insurance Info: Jeb GONZALEZ Reference #: [id number] Rx Benefits Verified through/on date: 06/18/2023 Referral (TE) received from: Prescribing Clinic Thank you, Jaqueline Arnold Medication Cementer Machine Joiner 06/18/2023, 1:22 PM * Telephone Encounter - Shira Thakur MED ASSIST - 06/18/2023 8:11 AM EST Patient insurance info has been updated. * Telephone Encounter - Carla Daigle RN - 06/18/2023 7:46 AM EST Scheduling: please update patients demographics with new insurance information. Thanks! * Telephone Encounter - Jaqueline Arnold OSA - 06/17/2023 4:25 PM EST [facility] Authorization Submission Submission Information: Medication: HYDROmorphone HCl 4 MG Oral Tablet (Dilaudid) Portal used: [employer] Insurance: Viral Garcia Authorization #/[place]: [id number] Thank you, Jaqueline Arnold Medication Cementer Machine Joiner 06/17/2023, 4:26 PM * Telephone Encounter - [...] whatever override is needed. Kamini Shirley Medication Cementer Machine Joiner P: [phone] F: [phone] 06/01/2023,2:44 PM * Telephone Encounter - Kamini [...] received from: Prescribing Clinic Kamini Shirley Medication Cementer Machine Joiner P: [phone] F: [phone] 05/31/2023,7:14 AM * Telephone Encounter - Rohan Pires RN - 05/28/2023 4:21 PM EST Please submit as urgent. ICD-10: Anal squamous cell carcinoma (HCC) [C21.0] Start date: BARBY Drugs: HYDROmorphone HCl 4 MG Oral Tablet (Dilaudid) Physician: Dr. Marciano Pagan documented in this encounter Plan of Treatment Upcoming Encounters Date Type Department Care Team (Late st Contact Info) Description 06/19/2023 10:30 AM EST Laboratory Laboratory, [facility] 132 [facility] [place] [address] [place] [address] 06/24/2023 11:30 AM EDT Office Visit Pharmacy, [facility] [address] [place] [address] [facility] [address] [facility] [place] [address] 06/29/2023 1:15 PM EDT Office Visit General Surgery, [facility] [address] [place] [address] Rosa Elena Faith MD [address] [facility] [place] [address] 08/10/2023 2:15 PM EDT Office Visit Hematology/Oncology [facility] [place] 200 [facility] [place] [address] Marciano Pagan MD [address] [place] [address] 08/24/2023 2:00 PM EDT Office Visit Cardiology, [facility] [address] [place] [address] Rosa Elena Ko PA-C [address] [place] [address] 05/11/2024 2:00 PM EST Office Visit Care at Home [address] [place] [address] Awa Hurd PA-C [address] [place], [place] [phone] Scheduled Procedures Name Priority Associated Diagnoses Date/Ti [...] D LEVEL ONCE IN A LIFETIME-USE SMARTSET# 62548 Completed 01/23/2019, 08/10/2017, 07/06/2016, Additional history exists [...] this encounter Medical Devices Implanted Type Area Abstract Writer Device Identifier Shelf Expiration Date Model / Serial / Lot Headless Compression Screw Implanted:Qty: 1 on 07/26/2020 by South Mtz MD at OR [facility] Left: Finger AR-8725-24 H / / Description:left middle fing er Ascesion Silicone Pip Finger Implant Implanted:Qty: 1 on 07/26/2020 by South Mtz MD at OR [facility] Left: Finger 06/09/2022 SPIP-520-1 -WW / / [id number] Description:middle finger documented as of this encounter [...] the patient have Health Care Power of Professor Of English? No Full Code 12/09/2020 5:24 PM 12/11/2020 [...] the patient have Health Care Power of Professor Of English? No Full Code 02/17/2019 10:07 AM 02/17/2019 4:30 PM This order reflects the patients wishes and were consensually agreed upon. Care Teams Pneumatic Tube Operator Relationship Specialty Start Date End Date Sukh Holman MD 132 [facility] [place] [address] PCP - General Family Medicine 07/26/20 documented as of this encounter
--- OUTSIDE RECORDS SUMMARY | 2023-08-15 04:04 | External Medical Summary | Summary of Care ---
Author Name Unknown Organization [facility] Address [address] [place] [address] Phone [phone] Care Team Providers Care Artificial Flowers Supervisor Name Role Phone Sukh Holman MD Primary Care Provider [phone] [phone] Reason for Visit * Reason Onset Date Comments Precert Pending 05/28/2023 Jaqueline Encounter Details Date Type Department Care Team (Late st Contact Info) Description 05/28/2023 Telephone Hematology/Oncology [facility] [place] [facility] [place] [address] Marciano Pagan MD [address] [place] [facility] [place] [address] Precert Pending (Jaqueline) Allergies Active Allergy Reactions [...] hemoglobin A1c goal of less than 7.5% ([facility]) Take 1 Tab by mouth daily. with [...] mRNA, LNP-s, No Pre serve, 2-Dose Series ([employer]) 10/03/2020,09/12/2020 Diptheria/Tetanus Adult (TD) 05/11/2000 H1N1 2009 [...] Arnold OSA - 06/17/2023 4:25 PM EST [facility] Authorization Submission Submission Information: Medication: HYDROmorphone HCl 4 MG Oral Tablet (Dilaudid) [facility]: [employer] Authorization #/[place]: [id number] Thank you, Jaqueline Arnold Medication Associate Faculty 06/17/2023, 4:26 PM * Telephone Encounter - [...] some type of override needed and, unfortunately, benedict is unable to assist with that. The clinic or pharmacy will need to request whatever override is needed. Kamini Shirley Medication Associate Faculty P: [phone] F: [phone] 06/01/2023,2:44 PM * Telephone Encounter - Kamini [...] auth end date: N/A Rx Insurance Info: Luis [place] Reference #: N/A Rx Benefits Verified through/on date: 05/31/23 Referral (TE) received from: Prescribing Clinic Kamini Shirley Medication Associate Faculty P: [phone] F: [phone] 05/31/2023,7:14 AM * Telephone Encounter - Rohan [...] 06/24/2023 11:30 AM EDT Office Visit Pharmacy, [facility] 132 [facility] [place] [address] [facility] 132 [facility] [place] [address] 06/29/2023 1:15 PM EDT Office Visit General Surgery, [facility] [address] [place] [address] Rosa Elena Faith MD [address] [place] [address] 08/10/2023 2:15 PM EDT Office Visit Hematology/Oncology [facility] [address] [place] [phone] Marciano Pagan MD [address] [place] [address] 08/24/2023 2:00 PM EDT Office Visit Cardiology, [facility] 132 [place] [address] Rosa Elena Ko PA-C 132 [facility] [place] [address] 05/11/2024 2:00 PM EST Office Visit Care at Home [address] [place] [address] Awa Hurd PA-C [address] [place], [place] [phone] Scheduled Procedures Name Priority Associated Diagnoses Date/Ti [...] D LEVEL ONCE IN A LIFETIME-USE SMARTSET# 90826 Completed 01/23/2019, 08/10/2017, 07/06/2016, Additional history exists [...] this encounter Medical Devices Implanted Type Area Network Architect Device Identifier Shelf Expiration Date Model / Serial / Lot Headless Compression Screw Implanted:Qty: 1 on 07/26/2020 by South Mtz MD at OR [facility] Left: Finger AR-8725-24 H / / Description:left middle fing er Ascesion Silicone Pip Finger Implant Implanted:Qty: 1 on 07/26/2020 by South Mtz MD at OR [facility] Left: Finger 06/09/2022 SPIP-520-1 -WW / / [id number] Description:middle finger documented as of this encounter [...] the patient have Health Care Power of Organizational Effectiveness Consultant? No Full Code 12/09/2020 5:24 PM 12/11/2020 [...] the patient have Health Care Power of Organizational Effectiveness Consultant? No Full Code 02/17/2019 10:07 AM 02/17/2019 4:30 PM This order reflects the patients wishes and were consensually agreed upon. Care Teams Artificial Flowers Supervisor Relationship Specialty Start Date End Date Sukh Holman MD [address] [place] [address] PCP - General Family Medicine 07/26/20 documented as of this encounter
--- OUTSIDE RECORDS SUMMARY | 2023-08-15 04:04 | External Medical Summary | Summary of Care ---
Author Name Unknown Organization [facility] Address [address] [place] [address] Phone [phone] Care Team Providers Care Special Service Officer Name Role Phone Sukh Holman MD Primary Care Provider [phone] [phone] Reason for Visit * Reason Onset Date Comments Precert Not Needed 05/28/2023 19 Kamini Hyd romorphone Encounter Details Date Type Department Care Team (Late st Contact Info) Description 05/28/2023 Telephone Hematology/Oncology [facility] [address] [place] [address] Marciano Pagan MD [address] [place] [facility] [address] Precert Not Needed (19 Kamini Hydromorphone) Allergies Active Allergy Reactions Criticality Noted Date Comments Adhesive Tape Itching,Rash 07/29/2016 Paper tape is fine documented as of this encounter (statuses as of 06/17/2023) Medications Medication Sig Dispensed Refills Start Date End Date Status Blood Glucose Monitoring Suppl (ONE TOUCH ULTRA SYSTEM KIT) W/DEVICE KITIndications:DM type 2 goal A1C below 7.5 Use up to four times a day as directed. 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 Kamini Shirley Medication Engineer Conductor P: [phone] F: [phone] 06/01/2023,2:44 PM * Telephone Encounter - Kamini [...] received from: Prescribing Clinic Kamini Shirley Medication Engineer Conductor P: [phone] F: [phone] 05/31/2023,7:14 AM * Telephone Encounter - Rohan [...] 06/24/2023 11:30 AM EDT Office [facility] [address] [facility] 132 [facility] [place] [address] 06/29/2023 1:15 PM EDT Office Visit General Surgery, [facility] 132 [facility] [place] [address] Rosa Elena Faith MD [address] [place] [address] 08/10/2023 2:15 PM EDT Office Visit Hematology/Oncology [facility] [place] [address] [facility] [place] [phone] Marciano Pagan MD 200 [facility] [place] [address] 08/24/2023 2:00 PM EDT Office Visit Cardiology, [facility] [address] [facility] [place] [address] Rosa Elena Ko, MARLENE [address] [place] [address] 05/11/2024 2:00 PM EST Office Visit Care at Home [address] [place] [address] Awa Hurd PA-C [address] [place] [address] Scheduled Procedures Name Priority Associated Diagnoses Date/Ti me COLONOSCOPY FLEXIBLE PROXIMAL DIAGNOSTIC Recall History of anal cancer Health Maintenance Due Date Last Done Comments DISCUSS TOBACCO CESSATION (REFER TO SMARTSET #4157) 1955 Alpha-1 Antitrypsin 11/29/1973 Depression Screening 05/22/2020 [...] D LEVEL ONCE IN A LIFETIME-USE SMARTSET# 04153 Completed 01/23/2019, 08/10/2017, 07/06/2016, Additional history exists [...] this encounter Medical Devices Implanted Type Area Wire Mill Rover Device Identifier Shelf Expiration Date Model / Serial / Lot Headless Compression Screw Implanted:Qty: 1 on 07/26/2020 by South Mtz MD at OR [facility] Left: Finger AR-8725-24 H / / Description:left middle fing er Ascesion Silicone Pip Finger Implant Implanted:Qty: 1 on 07/26/2020 by South Mtz MD at OR [facility] Left: Finger 06/09/2022 [id number]-520-1 -[id number] / / [id number] Description:middle finger documented as of this encounter [...] the patient have Health Care Power of Desulfurizer Operator? No Full Code 12/09/2020 5:24 PM [...] the patient have Health Care Power of Desulfurizer Operator? No Full Code 02/17/2019 10:07 AM 02/17/2019 4:30 PM This order reflects the patients wishes and were consensually agreed upon. Care Teams Special Service Officer Relationship Specialty Start Date End Date Sukh Holman MD [address] [place] [address] PCP - General Family Medicine 07/26/20 documented as of this encounter
--- OUTSIDE RECORDS SUMMARY | 2023-08-15 04:04 | External Medical Summary | Summary of Care ---
Author Name Unknown Organization [facility] Address [address] [place] [address] Phone [phone] Care Team Providers Care Educational Sign Language Interpreter Name Role Phone Sukh Holman MD Primary Care Provider [phone] Reason for Visit * Reason Onset Date Comments Precert Not Needed 05/28/2023 19 Kamini Hyd romorphone Encounter Details Date Type Department Care Team (Late st Contact Info) Description 05/28/2023 Telephone Hematology/Oncology [facility] [address] [place] [address] Marciano Pagan MD [address] [place] [facility] [place] [address] Precert Not Needed (19 Kamini Hydromorphone) Allergies [...] hemoglobin A1c goal of less than 7.5% ([facility]) Take 1 Tab by mouth [...] mRNA, LNP-s, No Pre serve, 2-Dose Series (Gig[employer]) 10/03/2020,09/12/2020 Diptheria/Tetanus Adult (TD) 05/11/2000 H1N1 2009 [...] whatever override is needed. Kamini Shirley Medication Electrostatic Paint Operator P: [phone] F: [phone] 06/01/2023,2:44 PM * Telephone Encounter - Kamini [...] received from: Prescribing Clinic Kamini Shirley Medication Electrostatic Paint Operator P: [phone] F: [phone] 05/31/2023,7:14 AM * Telephone Encounter - Rohan [...] 06/24/2023 11:30 AM EDT Office Visit [facility], [facility] [address] [facility] 132 [facility] [place] [address] 06/29/2023 1:15 PM EDT Office Visit General Surgery, [facility] 132 [facility] [place] [address] Rosa Elena Faith MD [address] [place] [address] 08/10/2023 2:15 PM EDT Office Visit Hematology/Oncology [facility] [place] 200 [facility] [place] [phone] Marciano Pagan MD 200 [facility] [address] 08/24/2023 2:00 PM EDT Office Visit Cardiology, [facility] 132 [facility] [place] [address] Rosa Elena Ko, MARLENE [address] [place] [address] 05/11/2024 2:00 PM EST Office Visit Care at Home [address] [place] [address] Awa Hurd PA-C [address] [place] [address] Scheduled Procedures Name Priority Associated Diagnoses Date/Ti me COLONOSCOPY FLEXIBLE PROXIMAL DIAGNOSTIC Recall History of anal cancer Health Maintenance Due Date Last Done Comments DISCUSS TOBACCO CESSATION (REFER TO SMARTSET #9131) 1955 Alpha-1 Antitrypsin 11/29/1973 Depression Screening 05/22/2020 [...] D LEVEL ONCE IN A LIFETIME-USE SMARTSET# [id number] Completed 01/23/2019, 08/10/2017, 07/06/2016, Additional history exists [...] this encounter Medical Devices Implanted Type Area Digital Content Producer Device Identifier Shelf Expiration Date Model / Serial / Lot Headless Compression Screw Implanted:Qty: 1 on 07/26/2020 by South Mtz MD at OR [facility] Left: Finger AR-8725-24 H / / Description:left middle fing er Ascesion Silicone Pip Finger Implant Implanted:Qty: 1 on 07/26/2020 by South Mtz MD at OR [facility] Left: Finger 06/09/2022 SPIP-520-1 -[id number] / / [id number] Description:middle finger documented as of this encounter [...] the patient have Health Care Power of Clerical Warehouseman? No Full Code 12/09/2020 5:24 PM 12/11/2020 [...] the patient have Health Care Power of Clerical Warehouseman? No Full Code 02/17/2019 10:07 AM 02/17/2019 4:30 PM This order reflects the patients wishes and were consensually agreed upon. Care Teams Educational Sign Language Interpreter Relationship Specialty Start Date End Date Sukh Holman MD [address] [place] [address] PCP - General Family Medicine 07/26/20 documented as of this encounter
--- OUTSIDE RECORDS SUMMARY | 2023-08-15 04:04 | External Medical Summary | Summary of Care ---
Author Name Unknown Organization [facility] Address [address] [place] [address] Phone [phone] Care Team Providers Care Ld Teacher Name Role Phone Rigo Holman MD Primary Care Provider [phone] Reason for Visit * Reason Comments eRx-Medication Refill Encounter Details Date Type Department Care Team (Late st Contact Info) Description 06/15/2023 Refill Family Practice [facility] [address] [facility] [place] [address] Rigo Holman MD [address] [facility] [place] [address] Encounter for long-term (current) use of medications*; Fibromyalgia; Depression Allergies Active Allergy Reactions Criticality Noted Date Comments Adhesive Tape Itching,Rash 07/29/2016 Paper tape is fine documented as of this encounter (statuses as of 06/16/2023) Medications Medication Sig Dispensed Refills Start Date End Date Status Blood Glucose Monitoring Suppl (ONE TOUCH ULTRA SYSTEM KIT) W/DEVICE KITIndications:DM type 2 goal A1C below 7.5 Use up to four times a day as directed. Dx: 250.00 1 Kit 0 5 Active aspirin 81 MG chewable tabletIndications:T ype 2 diabetes mellitus with hemoglobin A1c goal of less than 7.5% ([facility]) Take 1 Tab by mouth daily. [...] EVERY DAY 90 Tablet 3 4 Active HYDROmorphone HCl 4 MG Oral Tablet (Dilaudid)Indicatio ns:Anal squamous cell carcinoma (HCC) Take 1 Tablet by mouth every 4 hours as needed for Pain, Moderate. 60 Tablet 0 4 Active Fluticasone Propionate 50 MCG/ACT Nasal [...] ONCE DAILY 48 mL 5 4 Active Gabapentin 600 MG Oral Tablet (Neurontin)Indicati [...] EVERY DAY 90 Tablet 1 4 Active buPROPion HCl ER (XL) 150 MG Oral Tablet Extended Release 24 Hour (Wellbutrin XL)Indications:Fibr omyalgia,Depression TAKE 1 TABLET BY MOUTH EVERY DAY 90 Tablet 3 3 06/16/19 24 Discontinued documented as of this encounter (statuses as of 06/16/2023) Active Problems Problem Noted Date Diagnosed Date [...] as of this encounter (statuses as of 06/16/2023) Resolved Problems Problem Noted Date Diagnosed Date [...] as of this encounter (statuses as of 06/16/2023) Immunizations Name Administration Dates Next Due COVID-19 mRNA, LNP-s, No Pre serve, 2-Dose Series ([employer]) 10/03/2020,09/12/2020 H1N1 2009 Influenza, IM 05/03/2009 Hepatitis [...] encounter Miscellaneous Notes * Telephone Encounter - Marichuy Potter [facility] - 06/16/2023 5:03 PM EST Signed Prescriptions: Disp Refills buPROPion HCl ER (XL) 150 MG Oral Tablet E*90 Tab*1 Sig: TAKE 1TABLET BY MOUTH EVERY DAYAuthorizing Provider: RIGO HOLMAN User: MARICHUY POTTER * Telephone Encounter - Marichuy Potter RPh - 06/16/2023 5:00 PM EST Protocol passed, but pt is due for SCr soon. Appropriate labs ordered. Patient may obtain these labs with next routine blood work. Thank you, Marichuy Potter, PharmD Clinical Pharmacist [facility] (formally Telepharmacy) [phone] 06/16/2023 5:02 PM documented in this encounter Plan of Treatment Upcoming Encounters Date Type Department Care Team (Late st Contact Info) Description 06/24/2023 11:30 AM EDT Office Visit Pharmacy, [facility] [address] [place] [address] [facility] [address] [place] [address] 06/29/2023 1:15 PM EDT Office Visit General Surgery, [facility] [address] [place] [address] Rosa Elena Faith MD [address] [place] [address] 08/10/2023 2:15 PM EDT Office Visit Hematology[facility]On[facility] 200 [facility] [place] [phone] Marciano Pagan MD 200 [facility] [place] [address] 08/13/2023 1:30 PM EDT Office Visit Cardiology, [facility] [address] [facility] [place] [address] Rosa Elena Ko PAWilfred [address] [place] [address] 05/11/2024 2:00 PM EST Office Visit Care at Home [address] [place] [address] Awa Hurd PA-C [address] [place] [address] Scheduled Orders Name Type Priority Associated Diagnoses Orde r Schedule COMPREHENSIVE METABOLIC PANEL Lab Routine Encounter for long-term (current) use of medications Expected: 06/23/2023 (Approximate), Expires: 06/15/2024 Scheduled Procedures Name Priority Associated Diagnoses Date/Ti me COLONOSCOPY FLEXIBLE PROXIMAL DIAGNOSTIC Recall History of anal cancer Health Maintenance Due Date Last Done Comments DISCUSS TOBACCO CESSATION (REFER TO SMARTSET #6755) 1955 Alpha-1 Antitrypsin 11/29/1973 Depression Screening 05/22/2020 [...] D LEVEL ONCE IN A LIFETIME-USE SMARTSET# [id number] Completed 01/23/2019, 08/10/2017, 07/06/2016, Additional history exists [...] this encounter Medical Devices Implanted Type Area Pickling Machine Operator Device Identifier Shelf Expiration Date Model / Serial / Lot Headless Compression Screw Implanted:Qty: 1 on 07/26/2020 by South Mtz MD at OR [facility] Left: Finger AR-8725-24 H / / Description:left middle fing er Ascesion Silicone Pip Finger Implant Implanted:Qty: 1 on 07/26/2020 by South Mtz MD at OR [facility] Left: Finger 06/09/2022 [facility] / / [id number] Description:middle finger documented as of this encounter Visit Diagnoses Diagnosis Encounter for long-term (current) use of medications- Primary Encounter for long-term (current) use of other medications Fibromyalgia Mylagia and myositis, unspecified Depression Depressive disorder, not elsewhere classified documented in this encounter Advance Directives Latest [...] the patient have Health Care Power of Propeller Layout Worker? No Full Code 12/09/2020 5:24 PM 12/11/2020 [...] the patient have Health Care Power of Propeller Layout Worker? No Full Code 02/17/2019 10:07 AM 02/17/2019 4:30 PM This order reflects the patients wishes and were consensually agreed upon. Care Teams Ld Teacher Relationship Specialty Start Date End Date Rigo Holman MD [address] [place] [address] PCP - General Family Medicine 07/26/20 documented as of this encounter
--- OUTSIDE RECORDS SUMMARY | 2023-08-15 04:04 | External Medical Summary | Summary of Care ---
Author Name Unknown Organization [facility] Address [address] [place] [address] Phone [phone] Care Team Providers Care Sld Educational Aide Name Role Phone Sukh Holman MD Primary Care Provider [phone] [phone] Reason for Visit * Reason Onset Date Comments Precert Pending 05/28/2023 Jaqueline Encounter Details Date Type Department Care Team (Late st Contact Info) Description 05/28/2023 Telephone Hematology/Oncology [facility] [address] [place] [address] Marciano Pagan MD [address] [facility] [place] [address] Precert Pending (Jaqueline) Allergies Active Allergy Reactions [...] goal of less than 7.5% ([facility]) Take 1 Tab by mouth [...] mRNA, LNP-s, No Pre serve, 2-Dose Series ([employer] 10/03/2020,09/12/2020 Diptheria/Tetanus Adult (TD) 05/11/2000 H1N1 2009 [...] OSA - 06/17/2023 4:[address] [facility] Authorization Submission Submission Information: Medication: HYDROmorphone HCl 4 MG Oral Tablet (Dilaudid) Portal used: [facility] Insurance: [employer] Gold Authorization #/Michaud: [id number] Thank you, Jaqueline Arnold Medication Dairy Lab Technician 06/17/2023, 4:26 PM * Telephone Encounter - [...] trying to process through, attempted [place] on [facility] again, and again received same result, that it is availabe without authorization. Advised RN that it may be some type of override needed and, unfortunately, precert is unable to assist with that. The clinic or pharmacy will need to request whatever override is needed. Kamini Shirlye Medication Dairy Lab Technician P: [phone] F: [phone] 06/01/2023,2:44 PM * Telephone Encounter - Kamini Shirley OSA - 05/31/2023 7:13 AM EST Images from the original note were not included. New or re-auth: New authorization Approved/Denied: [place] not needed Drug Name and Formulation: HYDROmorphone HCl 4MG tablet How Prescribed(directions/sig): Take 1 Tablet by mouth every 4 hours as needed for Pain, Moderate Day Supply: 15 Did you receive insurance information from outside the chart? No, received insurance information within the chart Valid auth start date: N/A Valid auth end date: N/A Rx Insurance Info: Luis GONZALEZ Reference #: N/A Rx Benefits Verified through/on date: 05/31/23 Referral (TE) received from: Prescribing Clinic Kamini Shirley Medication Dairy Lab Technician P: [phone] F: [phone] 05/31/2023,7:14 AM * Telephone Encounter - Rohan [...] 06/24/2023 11:30 AM EDT Office Visit Pharmacy, [facility] [address] [facility] [place] [address] [facility] [place] [address] [address] [place] [address] 06/29/2023 1:15 PM EDT Office Visit General Surgery, [facility] [address] [facility] [place] [address] Rosa Elena Faith MD [address] [place] [address] 08/10/2023 2:15 PM EDT Office Visit Hematology/Oncology [facility] 200 [facility] [place], [place] [address] Marciano Pagan MD 200 [facility] [place] [address] 08/24/2023 2:00 PM EDT Office Visit Cardiology, [facility] [address] [place] [address] Rosa Elena Ko PA-C [address] [place] [address] 05/11/2024 2:00 PM EST Office Visit Care at Home [address] [place] [address] Awa Hurd PA-C [address] [place], [place] [id number] Scheduled Procedures Name Priority Associated Diagnoses Date/Ti me COLONOSCOPY FLEXIBLE PROXIMAL DIAGNOSTIC Recall History of anal cancer Health Maintenance Due Date Last Done Comments DISCUSS TOBACCO CESSATION (REFER TO SMARTSET #5672) 1955 Alpha-1 Antitrypsin 11/29/1973 Depression Screening 05/22/2020 [...] D LEVEL ONCE IN A LIFETIME-USE SMARTSET# [id number] Completed 01/23/2019, 08/10/2017, 07/06/2016, Additional history exists [...] this encounter Medical Devices Implanted Type Area Locomotive Crane Operator Helper Device Identifier Shelf Expiration Date Model / Serial / Lot Headless Compression Screw Implanted:Qty: 1 on 07/26/2020 by South Mtz MD at OR [facility] Left: Finger AR-8725-24 H / / Description:left middle fing er Ascesion Silicone Pip Finger Implant Implanted:Qty: 1 on 07/26/2020 by South Mtz MD at OR [facility] Left: Finger 06/09/2022 SPIP-520-1 -[id number] / / [id number] Description:middle finger documented as of this encounter [...] the patient have Health Care Power of Mixer Wet Pour? No Full Code 12/09/2020 5:24 PM 12/11/2020 [...] the patient have Health Care Power of Mixer Wet Pour? No Full Code 02/17/2019 10:07 AM 02/17/2019 4:30 PM This order reflects the patients wishes and were consensually agreed upon. Care Teams Sld Educational Aide Relationship Specialty Start Date End Date Sukh Holman MD [address] [place] [address] PCP - General Family Medicine 07/26/20 documented as of this encounter
--- OUTSIDE RECORDS SUMMARY | 2023-08-15 04:05 | External Medical Summary | Summary of Care ---
Author Name Unknown Organization [facility] Address [address] [place] [address] Phone [phone] Care Team Providers Care Taper Printed Circuit Layout Name Role Phone Rigo Holman MD Primary Care Provider [phone] Reason for Visit * Reason Comments eRx-Medication Refill Encounter Details Date Type Department Care Team (Late st Contact Info) Description 06/15/2023 Refill Family Practice [facility] [address] [facility] [place] [address] Rigo Holman MD [address] [place] [address] Spasm of muscle; Reflux esophagitis; Postnasal drip; Diabetic polyneuropathy associated with type 2 diabetes mellitus (HCC) Allergies Active Allergy Reactions Criticality Noted Date Comments Adhesive Tape Itching,Rash 07/29/2016 Paper tape is fine documented as of this encounter (statuses as of 06/15/2023) Medications Medication Sig Dispensed Refills Start Date [...] cold sores. 4 Tablet 11 3 Active buPROPion HCl ER (XL) 150 MG Oral Tablet Extended Release 24 Hour (Wellbutrin XL)Indications:Fibr omyalgia,Depression TAKE 1 TABLET BY MOUTH EVERY DAY 90 Tablet 3 3 Active Furosemide 40 MG Oral Tablet [...] A DAY 90 Tablet 3 4 Active Cyclobenzaprine HCl 10 MG Oral Tablet (Flexeril)Indicatio ns:Spasm of muscle TAKE 1 TABLET BY MOUTH THREE TIMES A DAY 270 Tablet 3 3 06/15/19 24 Discontinued Gabapentin 600 MG Oral Tablet (Neurontin)Indicati ons:Diabetic [...] 90 Tablet 1 3 06/15/19 24 Discontinued documented as of this encounter (statuses as of 06/15/2023) Active Problems Problem Noted Date Diagnosed Date [...] as of this encounter (statuses as of 06/15/2023) Resolved Problems Problem Noted Date Diagnosed Date [...] as of this encounter (statuses as of 06/15/2023) Immunizations Name Administration Dates Next Due COVID-19 mRNA, LNP-s, No Pre serve, 2-Dose Series (OMG) 10/03/2020,09/12/2020 H1N1 2009 Influenza, IM 05/03/2009 Hepatitis [...] Telephone Encounter - Rigo Holman MD - 06/15/2023 3:28 PM ESTSigned Prescriptions: Disp Refills Cyclobenzaprine HCl 10 MG Oral Tablet (Fle*270 Ta*3 Sig: TAKE 1 TABLET BY MOUTH THREE TIMES A DAY Authorizing Provider: RIGO HOLMAN Pantoprazole Sodium 40 MG Oral Tablet Rosa*90 Tab*1 Sig: TAKE 1 TABLET BY MOUTH EVERY DAY IN THE MORNING Authorizing Provider: RIGO HOLMAN Fluticasone Propionate 50 MCG/ACT Nasal Dc*48 mL 5 Sig: SPRAY 2 SPRAYS INTO EACH NOSTRIL ONCE DAILY Authorizing Provider: RIGO HOLMAN Gabapentin 600 MG Oral Tablet (Neurontin) 90 Tab*3 Sig: TAKE 1 TAB BY MOUTH IN MORNING, AT NOON, AND BEFORE BEDTIME, FOR A TOTAL AMOUNT OF THREE TIMES A DAY Authorizing Provider: RIGO HOLMAN * Telephone Encounter - Shira Hsu LPN - 06/15/2023 2:46 PM ESTPending Prescriptions: Disp Refills Cyclobenzaprine HCl 10 MG Oral Tablet [Pha*270 Ta*3 Sig: TAKE 1 TABLET BY MOUTH THREE TIMES A DAY Pantoprazole Sodium 40 MG Oral Tablet Rosa*90 Tab*1 Sig: TAKE 1 TABLET BY MOUTH EVERY DAY IN THE MORNING Fluticasone Propionate 50 MCG/ACT Nasal Dc*48 mL 5 Sig: SPRAY 2 SPRAYS INTO EACH NOSTRIL ONCE DAILY Gabapentin 600 MG Oral Tablet [Pharmacy Me*90 Tab*3 Sig: TAKE 1 TAB BY MOUTH IN MORNING, AT NOON, AND BEFORE BEDTIME, FOR A TOTAL AMOUNT OF THREE TIMES A DAY * Telephone Encounter - Ana Paula Molina - 06/15/2023 2:38 PM ESTPending Prescriptions: Disp Refills Cyclobenzaprine HCl 10 MG Oral Tablet [Pha*270 Ta*3 Sig: TAKE 1TABLET BY MOUTH THREE TIMES A DAY Pantoprazole Sodium 40 MG Oral Tablet Rosa*90 Tab*1 Sig: TAKE 1 TABLET BY MOUTH EVERY DAY IN THE MORNING Fluticasone Propionate 50 MCG/ACT Nasal Dc*48 mL 5 Sig: SPRAY 2 SPRAYS INTO EACH NOSTRIL ONCE DAILY Gabapentin 600 MG Oral Tablet [Pharmacy Me*90 Tab*3 Sig: TAKE 1 TAB BY MOUTH IN MORNING, AT NOON, AND BEFORE BEDTIME, FOR A TOTAL AMOUNT OF THREE TIMESA DAY documented in this encounter Plan of Treatment Upcoming Encounters Date Type Department Care Team (Late st Contact Info) Description 06/24/2023 11:30 AM EDT [facility] [address] [place] [address] [facility] [address] [place] [address] 06/29/2023 1:15 PM EDT Office Visit General Surgery, [facility] [address] [place] [address] Rosa Elena Faith MD [address] [place] [address] 08/10/2023 2:15 PM EDT Office Visit Hematology/Oncology [facility] [address] [facility] [place] [phone] Marciano Pagan MD [address] [place] [address] 08/13/2023 1:30 PM EDT Office Visit Cardiology, [facility] 132 [facility] [address] Rosa Elena Ko PA-C [address] [place] [address] 05/11/2024 2:00 PM EST Office Visit Care at Home [address] [place] [address] Awa Hurd PA-C [address] [place], [place] [phone] Scheduled Procedures Name Priority Associated Diagnoses Date/Ti [...] D LEVEL ONCE IN A LIFETIME-USE SMARTSET# [id number] Completed 01/23/2019, 08/10/2017, 07/06/2016, Additional history exists [...] this encounter Medical Devices Implanted Type Area Computer Forensics Analyst Device Identifier Shelf Expiration Date Model / Serial / Lot Headless Compression Screw Implanted:Qty: 1 on 07/26/2020 by South Mtz MD at [facility] Left: Finger AR-8725-24 H / / Description:left middle fing er Ascesion Silicone Pip Finger Implant Implanted:Qty: 1 on 07/26/2020 by South Mtz MD at [facility] Left: Finger 06/09/2022 [id number]-520-1 -[id number] / / [id number] Description:middle finger documented as of this encounter Visit Diagnoses Diagnosis Spasm of muscle Reflux esophagitis Postnasal drip Diabetic polyneuropathy associated with type 2 diabetes mellitus (HCC) documented in this encounter Advance Directives Latest [...] the patient have Health Care Power of Ethylene Compressor Operator? No Full Code 12/09/2020 5:24 PM [...] the patient have Health Care Power of Ethylene Compressor Operator? No Full Code 02/17/2019 10:07 AM 02/17/2019 4:30 PM This order reflects the patients wishes and were consensually agreed upon. Care Teams Taper Printed Circuit Layout Relationship Specialty Start Date End Date Rigo Holman MD [address] [place] [address] PCP - General Family Medicine 07/26/20 documented as of this encounter
--- OUTSIDE RECORDS SUMMARY | 2023-08-15 04:05 | External Medical Summary | Summary of Care ---
Author Name Unknown Organization [facility] Address [address] [place] [address] Phone [phone] Care Team Providers Care Political Science Research Assistant Name Role Phone Sukh Holman MD Primary Care Provider [phone] Reason for Visit * Reason Onset Date Comments Medication Refill 06/14/2023 Encounter Details Date Type Department Care Team (Late st Contact Info) Description 06/14/2023 Refill Hematology/Oncology, [facility] [address] [place] [address] Harlan Couch MD [address] [facility] [place] [address] Anal cancer (HCC) Allergies Active Allergy Reactions Criticality Noted Date Comments Adhesive Tape Itching,Rash 07/29/2016 Paper tape is fine documented as of this encounter (statuses as of 06/14/2023) Medications Medication Sig Dispensed Refills Start Date [...] DAILY DIRECTED 400 Strip 4 08/25/2021 Active Fluticasone Propionate 50 MCG/ACT Nasal Suspension (Flonase)Indication s:Postnasal drip USE 2 SPRAY(S) IN EACH NOSTRIL ONCE DAILY 48 g 5 05/11/2022 Active valACYclovir HCl 1 GM Oral Tablet (Valtrex) Take 2 Tablets by mouth in the morning and 2 Tablets before bedtime. for cold sores. 4 Tablet 11 06/29/2022 Active buPROPion HCl ER (XL) 150 MG Oral Tablet Extended Release 24 Hour (Wellbutrin XL)Indications:Fibr omyalgia,Depression TAKE 1 TABLET BY MOUTH EVERY DAY 90 Tablet 3 07/08/2022 Active Furosemide 40 MG Oral Tablet (Lasix)Indications: Edema Take 1 Tablet by mouth in the morning. May take an additional tablet as needed for increased edema.. 120 Tablet 3 07/20/2022 Active Cyclobenzaprine HCl 10 MG Oral Tablet (Flexeril)Indicatio ns:Spasm of muscle TAKE 1 TABLET BY MOUTH THREE TIMES A DAY 270 Tablet 3 08/07/2022 Active DULoxetine HCl 30 MG Oral Capsule [...] THE MORNING 180 Each 1 02/07/2023 Active Gabapentin 600 MG Oral Tablet (Neurontin)Indicati ons:Diabetic polyneuropathy associated with type 2 diabetes mellitus (HCC) TAKE 1 TAB BY MOUTH IN MORNING, AT NOON, AND BEFORE BEDTIME, FOR A TOTAL AMOUNT OF THREE TIMES A DAY 90 Tablet 3 02/22/2023 Active Pantoprazole Sodium 40 MG Oral Tablet Delayed Release (Protonix)Indicatio ns:Reflux esophagitis TAKE 1 TABLET BY MOUTH EVERY DAY IN THE MORNING Strength: 40 mg 90 Tablet 1 03/02/2023 Active rOPINIRole HCl 3 MG Oral Tablet [...] Pain, Moderate. 60 Tablet 0 06/14/2023 Active Ondansetron HCl 8 MG Oral Tablet (Zofran)Indications :Anal cancer (HCC) Take 1 Tablet by mouth every 8 hours as needed for Nausea. 30 Tablet 3 06/14/2023 Active Ondansetron HCl 8 MG Oral Tablet (Zofran)Indications :Anal cancer (HCC) TAKE 1 TABLET BY MOUTH EVERY 8 HOURS NEEDED FOR NAUSEA 30 Tablet 3 04/14/2023 4 Discontinu ed(Refill) documented as of this encounter (statuses as of 06/14/2023) Active Problems Problem Noted Date Diagnosed Date [...] as of this encounter (statuses as of 06/14/2023) Resolved Problems Problem Noted Date Diagnosed Date [...] as of this encounter (statuses as of 06/14/2023) Immunizations Name Administration Dates Next Due COVID-19 mRNA, LNP-s, No Pre serve, 2-Dose Series ([employer]) 10/03/2020,09/12/2020 H1N1 2009 Influenza, IM 05/03/2009 Hepatitis [...] Telephone Encounter - Carla Daigle RN - 06/14/2023 11:07 AM ESTSigned Prescriptions: Disp Refills Ondansetron HCl 8 MG Oral Tablet (Zofran) 30 Tab*3 Sig: Take 1 Tablet by mouth every 8 hours as needed for Nausea.Authorizing Provider: ZAHRA PAGAN * Telephone Encounter - Zahra Pagan MD - 06/14/2023 11:00 AM EST E-prescribed Zofran. * Telephone Encounter - Carla Daigle RN - 06/14/2023 10:00 AM ESTPending Prescriptions: Disp Refills Ondansetron HCl 8 MG Oral Tablet (Zofran) 30 Tab*3 Sig: Take 1 Tablet by mouth every 8 hours as needed for Nausea. * Telephone Encounter - Alena Skinner RN - 06/14/2023 9:04 AM ESTPending Prescriptions: Disp Refills Ondansetron HCl 8 MG Oral Tablet (Zofran) 30 Tab*3 Sig: Take 1 Tablet by mouth every 8 hours as needed for Nausea. documented in this encounter Plan of Treatment Upcoming Encounters Date Type Department Care Team (Late st Contact Info) Description 06/24/2023 11:30 AM EDT [facility] [place] [address] [address] [facility] [place] [address] 06/29/2023 1:15 PM EDT Office Visit General Surgery, [facility] 132 [facility] [place] [address] Rosa Elena Faith MD [address] [place], [place] [phone] 08/10/2023 2:15 PM EDT Office Visit Hematology/Oncology [facility] 200 [facility] [place] [phone] Zahra Pagan MD 200 [facility] [place] [address] 08/13/2023 1:30 PM EDT Office Visit [facility]iology, [facility] [address] Rosa Elena Ko [facility]C [facility] [address] 05/11/2024 2:00 PM EST Office Visit Care at Home [address] [facility] [place] [address] Awa Hurd PA-C [address] [facility] [address] Scheduled Procedures Name Priority Associated Diagnoses Date/Ti me COLONOSCOPY FLEXIBLE PROXIMAL DIAGNOSTIC Recall History of anal cancer Health Maintenance Due Date Last Done Comments DISCUSS TOBACCO CESSATION (REFER TO SMARTSET #7058) 1955 Alpha-1 Antitrypsin 11/29/1973 Depression Screening 05/22/2020 [...] D LEVEL ONCE IN A LIFETIME-USE SMARTSET# 23899 Completed 01/23/2019, 08/10/2017, 07/06/2016, Additional history exists [...] this encounter Medical Devices Implanted Type Area Parquet Floor Layer Device Identifier Shelf Expiration Date Model / Serial / Lot Headless Compression Screw Implanted:Qty: 1 on 07/26/2020 by South Mtz MD at OR [facility] Left: Finger AR-8725-24 H / / Description:left middle fing er Ascesion Silicone Pip Finger Implant Implanted:Qty: 1 on 07/26/2020 by South Mtz MD at [facility] Left: Finger 06/09/2022 SPIP-520-1 -[id number] / / [id number] Description:middle finger documented as of this encounter [...] the patient have Health Care Power of Sales Representative Graphic Art? No Full Code 12/09/2020 5:24 PM 12/11/2020 [...] the patient have Health Care Power of Sales Representative Graphic Art? No Full Code 02/17/2019 10:07 AM 02/17/2019 4:30 PM This order reflects the patients wishes and were consensually agreed upon. Care Teams Political Science Research Assistant Relationship Specialty Start Date End Date Sukh Holman MD [address] [place] [address] PCP - General Family Medicine 07/26/20 documented as of this encounter
--- OUTSIDE RECORDS SUMMARY | 2023-08-15 04:05 | External Medical Summary | Summary of Care ---
Author Name Unknown Organization [facility] Address [address] [place] [address] Phone [phone] Care Team Providers Care Human Resources Benefits Manager Name Role Phone Sukh Holman MD Primary Care Provider [phone] Reason for Visit * Reason Onset Date Comments Medication Refill 06/14/2023 Encounter Details Date Type Department Care Team (Late st Contact Info) Description 06/14/2023 Refill Pharmacy, [facility] 132 [facility] [place] [address] Zahra Pagan MD [address] [place] [address] Anal squamous cell carcinoma (HCC) Allergies Active [...] AT BEDTIME 90 Tablet 3 03/26/2023 Active Ondansetron HCl 8 MG Oral Tablet (Zofran)Indications :Anal cancer (HCC) TAKE 1 TABLET BY MOUTH EVERY 8 HOURS NEEDED FOR NAUSEA 30 Tablet 3 04/14/2023 Active Albuterol Sulfate HFA 108 (90 Base) [...] Pain, Moderate. 60 Tablet 0 06/14/2023 Active HYDROmorphone HCl 4 MG Oral Tablet (Dilaudid)Indicatio ns:Anal squamous cell carcinoma (HCC) Take 1 Tablet by mouth every 4 hours as needed for Pain, Moderate. 60 Tablet 0 05/28/2023 4 Discontinu ed(Refill) documented as of this [...] mRNA, LNP-s, No Pre serve, 2-Dose Series ([employer]) 10/03/2020,09/12/2020 H1N1 2009 Influenza, IM 05/03/2009 Hepatitis [...] Encounter - Zahra Pagan MD - 06/14/2023 9:24 AM EST E-prescribed hydromorphone. * Telephone Encounter - Zahra Pagan MD - 06/14/2023 9:24 AM ESTSigned Prescriptions: Disp Refills HYDROmorphone HCl 4 MG Oral Tablet (Dilaud*60 Tab*0 Sig: Take 1 Tablet by mouth every 4 hours as needed for Pain, Moderate. Authorizing Provider: ZAHRA PAGAN * Telephone Encounter - Guillermina Marquez [facility] - 06/14/2023 9:10 AM EST Pending Prescriptions: Disp Refills HYDROmorphone HCl 4 MG Oral Tablet (Dilaud*60 Tab*0 Sig: Take 1Tablet by mouth every 4 hours as needed for Pain, Moderate. documented in this encounter Plan of Treatment Upcoming Encounters Date Type Department Care Team (Late st Contact Info) Description 06/24/2023 11:30 AM EDT Office Visit Pharmacy, [facility] 132 [facility] [place] [address] [place] [address] [place] [address] 06/29/2023 1:15 PM EDT Office Visit General Surgery, [facility] [address] [address] Rosa Elena Faith MD [address] [place] [address] 08/10/2023 2:15 PM EDT Office Visit Hematology/Oncology [facility] 200 [facility] [place] [phone] Zahra Pagan MD 200 [facility] [place] [address] 08/13/2023 1:30 PM EDT Office Visit Cardiology, [facility] [address] [place] [address] Rosa Elena Ko PA-C [address] [place] [address] 05/11/2024 2:00 PM EST Office Visit Care at Home [address] [place] [address] Awa Hurd PA-C [address] [place] [address] Scheduled Procedures Name Priority Associated Diagnoses Date/Ti me COLONOSCOPY FLEXIBLE PROXIMAL DIAGNOSTIC Recall History of anal cancer Health Maintenance Due Date Last Done Comments DISCUSS TOBACCO CESSATION (REFER TO SMARTSET #8284) 1955 Alpha-1 Antitrypsin 11/29/1973 Depression Screening 05/22/2020 [...] D LEVEL ONCE IN A LIFETIME-USE SMARTSET# [id number] Completed 01/23/2019, 08/10/2017, 07/06/2016, Additional history exists [...] this encounter Medical Devices Implanted Type Area Pipe Organ Technician Device Identifier Shelf Expiration Date Model / Serial / Lot Headless Compression Screw Implanted:Qty: 1 on 07/26/2020 by South Mtz MD at [facility] Left: Finger AR-8725-24 H / / Description:left middle fing er Ascesion Silicone Pip Finger Implant Implanted:Qty: 1 on 07/26/2020 by South Mtz MD at OR [facility] Left: Finger 06/09/2022 SPIP-520-1 -[id number] / / [id number] Description:middle finger documented as of this encounter [...] the patient have Health Care Power of Rn Gyn? No Full Code 12/09/2020 5:24 PM 12/11/2020 [...] the patient have Health Care Power of Rn Gyn? No Full Code 02/17/2019 10:07 AM 02/17/2019 4:30 PM This order reflects the patients wishes and were consensually agreed upon. Care Teams Human Resources Benefits Manager Relationship Specialty Start Date End Date Sukh Holman MD [address] [place] [address] PCP - General Family Medicine 07/26/20 documented as of this encounter
--- OUTSIDE RECORDS SUMMARY | 2023-08-15 04:05 | External Medical Summary | Summary of Care ---
Author Name Unknown Organization [facility] Address [address] [place] [address] Phone [phone] Care Team Providers Care Sign Wirer Name Role Phone Rigo Holman MD Primary Care Provider [phone] Reason for Visit * Reason Onset Date Comments Medication Refill 06/14/2023 Encounter Details Date Type Department Care Team (Late st Contact Info) Description 06/14/2023 Refill Family Practice [facility] [address] [facility] [place] [address] Rigo Holman MD [address] [facility] [place] [address] Postnasal drip Allergies Active Allergy Reactions Criticality Noted Date [...] A1c goal of less than 7.5% ([facility]) Take 1 Tab by mouth daily. [...] for Nausea. 30 Tablet 3 06/14/2023 Active Fluticasone Propionate 50 MCG/ACT Nasal Suspension (Flonase)Indication s:Postnasal drip USE 2 SPRAY(S) IN EACH NOSTRIL ONCE DAILY 48 g 5 05/11/2022 4 Discontinu ed(Refill) documented as of this [...] mRNA, LNP-s, No Pre serve, 2-Dose Series ([employer]) 10/03/2020,09/12/2020 H1N1 2008 Influenza, IM 05/03/2009 Hepatitis [...] encounter Miscellaneous Notes * Telephone Encounter - Anupam Gill, [facility] - 06/15/2023 12:05 PM EST Signed Prescriptions: Disp Refills Fluticasone Propionate 50 MCG/ACT Nasal Dc*48 g 1 Sig: USE 2 SPRAY(S) IN EACH NOSTRIL ONCE DAILYAuthorizing Provider: RIGO HOLMAN User: ANUPAM GILL documented in this encounter Plan of Treatment Upcoming Encounters Date Type Department Care Team (Late st Contact Info) Description 06/24/2023 11:30 AM EDT Office Visit Pharmacy, [facility] 132 [facility] [place] [address] [facility] [place] [address] 06/29/2023 1:15 PM EDT Office Visit General Surgery, [facility] 132 [facility] [place] [phone] Rosa Elena Faith MD [address] [place] [address] 08/10/2023 2:15 PM EDT Office Visit Hematology/Oncology [facility] 200 [facility] [place] [phone] Marciano Pagan MD 200 [place] [address] 08/13/2023 1:30 PM EDT Office Visit Cardiology, [facility] 132 [facility] [place] [phone] Rosa Elena Ko PA-C [address] [place] [address] 05/11/2024 2:00 PM EST Office Visit Care at Home [address] [place] [address] Awa Hurd PA-C [address] [place], [place] [phone] Scheduled Procedures Name Priority Associated Diagnoses Date/Ti me COLONOSCOPY FLEXIBLE PROXIMAL DIAGNOSTIC Recall History of anal cancer Health Maintenance Due Date Last Done Comments DISCUSS TOBACCO CESSATION (REFER TO SMARTSET #2372) 1955 Alpha-1 Antitrypsin 11/29/1973 Depression Screening 05/22/2020 [...] D LEVEL ONCE IN A LIFETIME-USE SMARTSET# [id number] Completed 01/23/2019, 08/10/2017, 07/06/2016, Additional history exists [...] this encounter Medical Devices Implanted Type Area Piano Assembler Device Identifier Shelf Expiration Date Model / Serial / Lot Headless Compression Screw Implanted:Qty: 1 on 07/26/2020 by South Mtz MD at OR [facility] Left: Finger AR-8725-24 H / / Description:left middle fing er Ascesion Silicone Pip Finger Implant Implanted:Qty: 1 on 07/26/2020 by South Mtz MD at [facility] Left: Finger 06/09/2022 SPIP-520-1 -[id number] / / [id number] Description:middle finger documented as of this encounter Visit Diagnoses Diagnosis Postnasal drip documented in this encounter Advance Directives Latest [...] the patient have Health Care Power of Industrial Gas Servicer Helper? No Full Code 12/09/2020 5:24 PM [...] the patient have Health Care Power of Industrial Gas Servicer Helper? No Full Code 02/17/2019 10:07 AM 02/17/2019 4:30 PM This order reflects the patients wishes and were consensually agreed upon. Care Teams Sign Wirer Relationship Specialty Start Date End Date Rigo Holman MD [address] [place] [address] PCP - General Family Medicine 07/26/20 documented as of this encounter
--- OUTSIDE RECORDS SUMMARY | 2023-08-15 04:06 | External Medical Summary | Summary of Care ---
Author Name Unknown Organization [facility] Address [address] [place] [address] Phone [phone] Care Team Providers Care Composite Bond Worker Name Role Phone Sukh Holman MD Primary Care Provider [phone] Reason for Visit * Reason Onset Date Comments Films 05/28/2023 Encounter Details Date Type Department Care Team (Late st Contact Info) Description 05/28/2023 Telephone Radiology Film File [address], [place] [phone] Rosa Elena Faith MD [address], [place] [phone] Films Allergies Active Allergy Reactions Criticality Noted Date Comments Adhesive Tape Itching,Rash 07/29/2016 Paper tape is fine documented as of this encounter (statuses as of 05/28/2023) Medications Medication Sig Dispensed Refills Start Date [...] 07/08/2022 Active Furosemide 40 MG Oral Tablet (Lasix)Indications:E [...] 02/07/2023 Active Gabapentin 600 MG Oral Tablet (Neurontin)Indicatio [...] 40 mg 90 Tablet 1 03/02/2023 Active Atorvastatin Calcium 20 MG Oral Tablet (Lipitor)Indications :Dyslipidemia, goal LDL below 100 TAKE 1 TABLET BY MOUTH EVERY DAY 90 Tablet 0 03/05/2023 Active rOPINIRole HCl 3 MG Oral Tablet TAKE 1 TABLET BY MOUTH EVERYDAY AT BEDTIME 90 Tablet 3 03/26/2023 Active Ondansetron HCl 8 MG Oral Tablet (Zofran)Indications: Anal cancer (HCC) TAKE 1 TABLET BY MOUTH [...] before bedtime. 60 Tablet 0 05/12/2023 Active HYDROmorphone HCl 4 MG Oral Tablet (Dilaudid)Indication s:Anal squamous cell carcinoma (HCC) Take 1 Tablet by mouth every 4 hours as needed for Pain, Moderate. 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) TAKE 1 TABLET BY MOUTH TWICE A DAY WITH MORNING MEAL AND EVENING MEAL 180 Tablet 1 05/17/2023 Active Propranolol HCl 20 MG Oral Tablet (Inderal)Indications :Essential tremor TAKE 1 TABLET BY MOUTH IN THE MORNING AND BEFORE BEDTIME 180 Tablet 3 05/18/2023 Active documented as of this encounter (statuses as of 05/28/2023) Active Problems Problem Noted Date Diagnosed Date [...] as of this encounter (statuses as of 05/28/2023) Resolved Problems Problem Noted Date Diagnosed Date [...] as of this encounter (statuses as of 05/28/2023) Immunizations Name Administration Dates Next Due COVID-19 [...] encounter Miscellaneous Notes * Telephone Encounter - Juanita Mejias OSA - 05/28/2023 9:39 AM EST [facility] Radiology/Oncology department requesting 05-18-23 petscan images be pushed through PACS. [place] Authorization to Release on file. Images pushed to [facility] PACS external connection. Associated report(s) not needed. documented in this encounter Plan of Treatment Upcoming Encounters Date Type Department Care Team (Late st Contact Info) Description 06/24/2023 11:30 AM EDT Office Visit Pharmacy, [facility] [address] [place] [address] [facility] [address] [place] [address] 06/29/2023 1:15 PM EDT Office Visit General Surgery, [facility] 132 [facility] [place] [address] Rosa Elena Faith MD [address], [place] [phone] 08/10/2023 2:15 PM EDT Office Visit Hematology/Oncology [facility] 200 [place] [address] Marciano Pagan MD [address] [place] [address] 08/13/2023 1:30 PM EDT Office Visit Cardiology, [facility] 132 [place] [address] Rosa Elena Ko PA-C 132 [facility] [place] [address] 05/11/2024 2:00 PM EST Office Visit Care at Home [address], [place] [phone] Awa Hurd PA-C [address] [place], [place] [phone] Scheduled Procedures Name Priority Associated Diagnoses Date/Ti me COLONOSCOPY FLEXIBLE PROXIMAL DIAGNOSTIC Recall History of anal cancer Health Maintenance Due Date Last Done Comments DISCUSS TOBACCO CESSATION (REFER TO SMARTSET #5098) 1955 Alpha-1 Antitrypsin 11/29/1973 Depression Screening 05/22/2020 [...] D LEVEL ONCE IN A LIFETIME-USE SMARTSET# [id number] Completed 01/23/2019, 08/10/2017, 07/06/2016, Additional history exists [...] this encounter Medical Devices Implanted Type Area Production Artist Device Identifier Shelf Expiration Date Model / Serial / Lot Headless Compression Screw Implanted:Qty: 1 on 07/26/2020 by South Mtz MD at OR [facility] Left: Finger AR-8725-24 H / / Description:left middle fing er Ascesion Silicone Pip Finger Implant Implanted:Qty: 1 on 07/26/2020 by South Mtz MD at OR [facility] Left: Finger 06/09/2022 SPIP-520-1 -[id number] / / [id number] Description:middle finger documented as of this encounter [...] patient have Health Care Power of Field Crop Farmworker? No Full Code 12/09/2020 5:24 PM 12/11/2020 [...] patient have Health Care Power of Field Crop Farmworker? No Full Code 02/17/2019 10:07 AM 02/17/2019 4:30 PM This order reflects the patients wishes and were consensually agreed upon. Care Teams Composite Bond Worker Relationship Specialty Start Date End Date Sukh Holman MD [address] [place] [address] PCP - General Family Medicine 07/26/20 documented as of this encounter
--- OUTSIDE RECORDS SUMMARY | 2023-08-15 04:06 | External Medical Summary | Summary of Care ---
Author Name Unknown Organization [facility] Address [address] [place] [address] Phone [phone] Care Team Providers Care Pizzamaker Name Role Phone Sukh Holman MD Primary Care Provider [phone] Encounter Details Date Type Department Care Team (Late st Contact Info) Description 06/11/2023 Population Health External Data Unspecified Department Allergies Active Allergy Reactions Criticality Noted Date Comments Adhesive Tape Itching,Rash 07/29/2016 Paper tape is fine documented as of this encounter (statuses as of 06/11/2023) Medications Medication Sig Dispensed Refills Start Date [...] BEFORE BEDTIME 180 Tablet 3 05/18/2023 Active HYDROmorphone HCl 4 MG Oral Tablet (Dilaudid)Indication s:Anal squamous cell carcinoma (HCC) Take 1 Tablet by mouth every 4 hours as needed for Pain, Moderate. 60 Tablet 0 05/28/2023 Active Atorvastatin Calcium 20 MG Oral Tablet (Lipitor)Indications :Dyslipidemia, goal LDL below 100 TAKE 1 TABLET BY MOUTH EVERY DAY 90 Tablet 3 06/06/2023 Active documented as of this encounter (statuses as of 06/11/2023) Active Problems Problem Noted Date Diagnosed Date [...] as of this encounter (statuses as of 06/11/2023) Resolved Problems Problem Noted Date Diagnosed Date [...] as of this encounter (statuses as of 06/11/2023) Immunizations Name Administration Dates Next Due COVID-19 [...] 06/24/2023 11:30 AM EDT Office Visit Pharmacy, [facility] [address] [place] [address] [facility] [address] [place] [address] 06/29/2023 1:15 PM EDT Office Visit General Surgery, [facility] [address] [place] [address] Rosa Elena Faith MD [address] [facility] [place] [address] 08/10/2023 2:15 PM EDT Office Visit Hematology/Oncology [facility] [place] 200 [facility] [place] [address] Marciano Pagan MD [address] [place] [address] 08/13/2023 1:30 PM EDT Office Visit Cardiology, [facility] [address] [place] [address] Rosa Elena Ko PA-C [address] [place] [address] 05/11/2024 2:00 PM EST Office Visit Care at Home [address] [place] [address] Awa Hrud PA-C [address] [place], [place] [phone] Scheduled Procedures Name Priority Associated Diagnoses Date/Ti [...] D LEVEL ONCE IN A LIFETIME-USE SMARTSET# [id number] Completed 01/23/2019, 08/10/2017, 07/06/2016, Additional history exists [...] this encounter Medical Devices Implanted Type Area Double Spindle Shaper Operator Device Identifier Shelf Expiration Date Model / Serial / Lot Headless Compression Screw Implanted:Qty: 1 on 07/26/2020 by South Mtz MD at OR [facility] Left: Finger AR-8725-24 H / / Description:left middle fing er Ascesion Silicone Pip Finger Implant Implanted:Qty: 1 on 07/26/2020 by South Mtz MD at OR [facility] Left: Finger 06/09/2022 SPIP-520-1 -[id number] / / [id number] Description:middle finger documented as of this encounter [...] the patient have Health Care Power of Senior Net Developer Architect? No Full Code 12/09/2020 5:24 PM 12/11/2020 [...] the patient have Health Care Power of Senior Net Developer Architect? No Full Code 02/17/2019 10:07 AM 02/17/2019 4:30 PM This order reflects the patients wishes and were consensually agreed upon. Care Teams Pizzamaker Relationship Specialty Start Date End Date Sukh Holman MD 132 [facility] [place] [address] PCP - General Family Medicine 07/26/20 documented as of this encounter
--- OUTSIDE RECORDS SUMMARY | 2023-08-15 04:06 | External Medical Summary | Summary of Care ---
Author Name Unknown Organization [facility] Address [address] [place] [address] Phone [phone] Care Team Providers Care Machine Straw Hat Presser Name Role Phone Rigo Holman MD Primary Care Provider [phone] [phone] Reason for Visit * Reason Comments eRx-Medication Refill Encounter Details Date Type Department Care Team (Late st Contact Info) Description 06/05/2023 Refill Family Practice [facility] [address] [facility] [place] [id number] Rigo Holman MD [address] [facility] [place] [address] Dyslipidemia, goal LDL below 100 Allergies Active Allergy Reactions Criticality Noted Date Comments Adhesive Tape Itching,Rash 07/29/2016 Paper tape is fine documented as of this encounter (statuses as of 06/06/2023) Medications Medication Sig Dispensed Refills Start Date [...] DAILY DIRECTED 400 Strip 4 2 Active Fluticasone Propionate 50 MCG/ACT Nasal Suspension (Flonase)Indication s:Postnasal drip USE 2 SPRAY(S) IN EACH NOSTRIL ONCE DAILY 48 g 5 3 Active valACYclovir HCl 1 GM Oral Tablet [...] increased edema.. 120 Tablet 3 3 Active Cyclobenzaprine HCl 10 MG Oral Tablet (Flexeril)Indicatio ns:Spasm of muscle TAKE 1 TABLET BY MOUTH THREE TIMES A DAY 270 Tablet 3 3 Active DULoxetine HCl 30 [...] THE MORNING 180 Each 1 3 Active Gabapentin 600 MG Oral Tablet (Neurontin)Indicati ons:Diabetic polyneuropathy associated with type 2 diabetes mellitus (HCC) TAKE 1 TAB BY MOUTH IN MORNING, AT NOON, AND BEFORE BEDTIME, FOR A TOTAL AMOUNT OF THREE TIMES A DAY 90 Tablet 3 3 Active Pantoprazole Sodium 40 MG Oral Tablet Delayed Release (Protonix)Indicatio ns:Reflux esophagitis TAKE 1 TABLET BY MOUTH EVERY DAY IN THE MORNING Strength: 40 mg 90 Tablet 1 3 Active rOPINIRole HCl 3 MG Oral Tablet TAKE 1 TABLET BY MOUTH EVERYDAY AT BEDTIME 90 Tablet 3 3 Active Ondansetron HCl 8 MG Oral Tablet (Zofran)Indications :Anal cancer (HCC) TAKE 1 TABLET BY MOUTH EVERY 8 HOURS NEEDED FOR NAUSEA 30 Tablet 3 4 Active Albuterol Sulfate HFA 108 (90 Base) [...] BEFORE BEDTIME 180 Tablet 3 4 Active HYDROmorphone HCl 4 MG Oral Tablet (Dilaudid)Indicatio ns:Anal squamous cell carcinoma (HCC) Take 1 Tablet by mouth every 4 hours as needed for Pain, Moderate. 60 Tablet 0 4 Active Atorvastatin Calcium 20 MG Oral Tablet (Lipitor)Indication s:Dyslipidemia, goal LDL below 100 TAKE 1 TABLET BY MOUTH EVERY DAY 90 Tablet 3 4 Active Atorvastatin Calcium 20 MG Oral Tablet (Lipitor)Indication s:Dyslipidemia, goal LDL below 100 TAKE 1 TABLET BY MOUTH EVERY DAY 90 Tablet 0 3 06/06/19 24 Discontinued documented as of this encounter (statuses as of 06/06/2023) Active Problems Problem Noted Date Diagnosed Date [...] as of this encounter (statuses as of 06/06/2023) Resolved Problems Problem Noted Date Diagnosed Date [...] as of this encounter (statuses as of 06/06/2023) Immunizations Name Administration Dates Next Due COVID-19 [...] encounter Miscellaneous Notes * Telephone Encounter - Peter Kellogg, [facility] - 06/06/2023 10:55 AM EST Signed Prescriptions: Disp Refills Atorvastatin Calcium 20 MG Oral Tablet (Li*90 Tab*3 Sig: TAKE 1 TABLET BY MOUTH EVERY DAYAuthorizing Provider: RIGO HLOMAN User: PETER KELLOGG documented in this encounter Plan of Treatment Upcoming Encounters Date Type Department Care Team (Late st Contact Info) Description 06/24/2023 11:30 AM EDT Office Visit Pharmacy, [facility] 132 [facility] [place] [address] [facility] 132 [facility] [place] [address] 06/29/2023 1:15 PM EDT Office Visit General Surgery, [facility] 132 [facility] [place] [address] Rosa Elena Faith MD [address] [place], [place] [phone] 08/10/2023 2:15 PM EDT Office Visit Hematology/Oncology [facility] 200 [facility] [place] [phone] Marciano Pagan MD 200 [place] [address] 08/13/2023 1:30 PM EDT Office Visit Cardiology, [facility] 132 [facility] [place] [address] Rosa Elena Ko PA-C [address] [place] [address] 05/11/2024 2:00 PM EST Office Visit Care at Home [address] [place], [place] [phone] Awa Hurd PA-C [address] [place] [address] Scheduled Procedures Name Priority Associated Diagnoses Date/Ti me COLONOSCOPY FLEXIBLE PROXIMAL DIAGNOSTIC Recall History of anal cancer Health Maintenance Due Date Last Done Comments DISCUSS TOBACCO CESSATION (REFER TO SMARTSET #9170) 1955 Alpha-1 Antitrypsin 11/29/1973 Depression Screening 05/22/2020 [...] Additional history exists DXA Scan 05/13/2023 05/13/2021, 020 04/2021, 06/14/2018, Additional history exists Mammogram 08/20/2023 [...] D LEVEL ONCE IN A LIFETIME-USE SMARTSET# [id number] Completed 01/23/2019, 08/10/2017, 07/06/2016, Additional history exists [...] this encounter Medical Devices Implanted Type Area Veneer Sample Maker Device Identifier Shelf Expiration Date Model / Serial / Lot Headless Compression Screw Implanted:Qty: 1 on 07/26/2020 by South Mtz MD at OR [facility] Left: Finger AR-8725-24 H / / Description:left middle fing er Ascesion Silicone Pip Finger Implant Implanted:Qty: 1 on 07/26/2020 by South Mtz MD at OR [facility] Left: Finger 06/09/2022 [id number][id number] / / [id number] Description:middle finger documented as of this encounter Visit Diagnoses Diagnosis Dyslipidemia, goal LDL below 100 Other and unspecified hyperlipidemia documented in this encounter Advance Directives Latest [...] the patient have Health Care Power of Car Packer? No Full Code 12/09/2020 5:24 PM [...] the patient have Health Care Power of Car Packer? No Full Code 02/17/2019 10:07 AM 02/17/2019 4:30 PM This order reflects the patients wishes and were consensually agreed upon. Care Teams Machine Straw Hat Presser Relationship Specialty Start Date End Date Rigo Holman MD [address] [place] [address] PCP - General Family Medicine 07/26/20 documented as of this encounter
--- OUTSIDE RECORDS SUMMARY | 2023-08-15 04:06 | External Medical Summary | Summary of Care ---
Author Name Unknown Organization [facility] Address [address] [place] [address] Phone [phone] Care Team Providers Care Bookkeeping Service Sales Agent Name Role Phone Sukh Holman MD Primary Care Provider [phone] Reason for Visit * Reason Onset Date Comments Precert Not Needed 05/28/2023 19 Kamini Hyd romorphone Encounter Details Date Type Department Care Team (Late st Contact Info) Description 05/28/2023 Telephone Hematology/Oncology [facility] [address] [place] [address] Marciano Pagan MD [address] [place] [facility] [place] [address] Precert Not Needed (19 Kamini Hydromorphone) Allergies Active Allergy Reactions Criticality Noted Date Comments Adhesive Tape Itching,Rash 07/29/2016 Paper tape is fine documented as of this encounter (statuses as of 05/31/2023) Medications Medication Sig Dispensed Refills Start Date [...] Pain, Moderate. 60 Tablet 0 05/28/2023 Active documented as of this encounter (statuses as of 05/31/2023) Active Problems Problem Noted Date Diagnosed Date [...] as of this encounter (statuses as of 05/31/2023) Resolved Problems Problem Noted Date Diagnosed Date [...] as of this encounter (statuses as of 05/31/2023) Immunizations Name Administration Dates Next Due COVID-19 mRNA, LNP-s, No Pre serve, 2-Dose Series ([employer]) 10/03/2020,09/12/2020 H1N1 2009 Influenza, IM 05/03/2009 Hepatitis [...] Miscellaneous Notes * Telephone Encounter - Kamini Shirley, RAJAN - 05/31/2023 7:13 AM EST Images from [...] received from: Prescribing Clinic Kamini Shirley Medication Human Resources Benefits Administrator P: [phone] F: [phone] 05/31/2023,7:14 AM * Telephone Encounter - Rohan [...] 06/24/2023 11:30 AM EDT Office Visit Pharmacy, [facility] 132 [facility] [place] [address] [facility] [address] [place] [address] 06/29/2023 1:15 PM EDT Office Visit General Surgery, [facility] 132 [facility] [place] [address] Rosa Elena Faith MD [address] [facility] [address] 08/10/2023 2:15 PM EDT Office Visit Hematology/Oncology [facility] Mayen [place] 200 [facility] [place] [phone] Marciano Pagan MD 200 [facility] [place] [address] 08/13/2023 1:30 PM EDT Office Visit Cardiology, [facility] [address] [place] [address] Rosa Elena Ko PA-C [address] [place] [address] 05/11/2024 2:00 PM EST Office Visit Care at Home [address] [place] [address] Awa Hurd PA-C [address] [place], [place] [phone] Scheduled Procedures Name Priority Associated Diagnoses Date/Ti me COLONOSCOPY FLEXIBLE PROXIMAL DIAGNOSTIC Recall History of anal cancer Health Maintenance Due Date Last Done Comments DISCUSS TOBACCO CESSATION (REFER TO SMARTSET #1358) 1955 Alpha-1 Antitrypsin 11/29/1973 Depression Screening 05/22/2020 [...] D LEVEL ONCE IN A LIFETIME-USE SMARTSET# [id number] Completed 01/23/2019, 08/10/2017, 07/06/2016, Additional history exists [...] this encounter Medical Devices Implanted Type Area Harpoon Engagement Planning Operator Device Identifier Shelf Expiration Date Model / Serial / Lot Headless Compression Screw Implanted:Qty: 1 on 07/26/2020 by South Mtz MD at OR [facility] Left: Finger AR-8725-24 H / / Description:left middle fing er Ascesion Silicone Pip Finger Implant Implanted:Qty: 1 on 07/26/2020 by South Mtz MD at OR [facility] Left: Finger 06/09/2022 SPIP-520-1 -WW / / [id number] Description:middle finger documented as of this encounter [...] the patient have Health Care Power of Factory Hand? No Full Code 12/09/2020 5:24 PM 12/11/2020 [...] the patient have Health Care Power of Factory Hand? No Full Code 02/17/2019 10:07 AM 02/17/2019 4:30 PM This order reflects the patients wishes and were consensually agreed upon. Care Teams Bookkeeping Service Sales Agent Relationship Specialty Start Date End Date Sukh Holman MD [address] [place] [address] PCP - General Family Medicine 07/26/20 documented as of this encounter
--- OUTSIDE RECORDS SUMMARY | 2023-08-15 04:06 | External Medical Summary | Summary of Care ---
Author Name Unknown Organization [facility] Address [address] [place] [address] Phone [phone] Care Team Providers Care Manager Office Name Role Phone Sukh Holman MD Primary Care Provider [phone] Reason for Visit * Reason Onset Date Comments Precert Not Needed 05/28/2023 19 Kamini Hyd romorphone Encounter Details Date Type Department Care Team (Late st Contact Info) Description 05/28/2023 Telephone Hematology/Oncology [facility] [address] [place] [address] Marciano Pagan MD [address] [place] [address] Precert Not Needed (19 Kamini Hydromorphone) Allergies Active Allergy Reactions Criticality Noted Date Comments Adhesive Tape Itching,Rash 07/29/2016 Paper tape is fine documented as of this encounter (statuses as of 06/01/2023) Medications Medication Sig Dispensed Refills Start Date [...] as of this encounter (statuses as of 06/01/2023) Active Problems Problem Noted Date Diagnosed Date [...] as of this encounter (statuses as of 06/01/2023) Resolved Problems Problem Noted Date Diagnosed Date [...] as of this encounter (statuses as of 06/01/2023) Immunizations Name Administration Dates Next Due COVID-19 mRNA, LNP-s, No Pre serve, 2-Dose Series ([employer]) 10/03/2020,09/12/2020 Diptheria/Tetanus Adult (TD) 05/11/2000 H1N1 2009 [...] Miscellaneous Notes * Telephone Encounter - Kamini Shirley OSA [...] whatever override is needed. Kamini Shirley Medication Financial Aid Counselor P: [phone] F: [phone] 06/01/2023,2:44 PM * Telephone Encounter - Kamini [...] received from: Prescribing Clinic Kamini Shirley Medication Financial Aid Counselor P: [phone] F: [phone] 05/31/2023,7:14 AM * Telephone Encounter - Rohan [...] 06/24/2023 11:30 AM EDT Office Visit Pharmacy, [facility] [address] [facility] 132 [facility] [place] [address] 06/29/2023 1:15 PM EDT Office Visit General Surgery, [facility] 132 [place] [address] Rosa Elena Faith MD [address] [place], [place] [phone] 08/10/2023 2:15 PM EDT Office Visit Hematology/Oncology [facility] 200 [facility] [place] [phone] Marciano Pagan MD 200 [facility] [place] [address] 08/13/2023 1:30 PM EDT Office Visit Cardiology, [facility] 132 [place] [address] Rosa Elena Ko PA-C 132 [place] [address] 05/11/2024 2:00 PM EST Office Visit Care at Home [address] [place] [facility] [place] [address] Awa Hurd PA-C [address] [facility] [place] [phone] Scheduled Procedures Name Priority Associated Diagnoses Date/Ti me COLONOSCOPY FLEXIBLE PROXIMAL DIAGNOSTIC Recall History of anal cancer Health Maintenance Due Date Last Done Comments DISCUSS TOBACCO CESSATION (REFER TO SMARTSET #5219) 1955 Alpha-1 Antitrypsin 11/29/1973 Depression Screening 05/22/2020 [...] D LEVEL ONCE IN A LIFETIME-USE SMARTSET# [id number] Completed 01/23/2019, 08/10/2017, 07/06/2016, Additional history exists [...] this encounter Medical Devices Implanted Type Area Zig Zag Stitcher Device Identifier Shelf Expiration Date Model / Serial / Lot Headless Compression Screw Implanted:Qty: 1 on 07/26/2020 by South tMz MD at OR [facility] Left: Finger AR-8725-24 H / / Description:left middle fing er Ascesion Silicone Pip Finger Implant Implanted:Qty: 1 on 07/26/2020 by South Mtz MD at OR [facility] Left: Finger 06/09/2022 SPIP-520-1 -WW / / [id number] Description:middle finger documented as of this encounter [...] the patient have Health Care Power of Yeast Culture Developer? No Full Code 12/09/2020 5:24 PM 12/11/2020 [...] the patient have Health Care Power of Yeast Culture Developer? No Full Code 02/17/2019 10:07 AM 02/17/2019 4:30 PM This order reflects the patients wishes and were consensually agreed upon. Care Teams Manager Office Relationship Specialty Start Date End Date Sukh Holman MD [address] [place] [address] PCP - General Family Medicine 07/26/20 documented as of this encounter
--- OUTSIDE RECORDS SUMMARY | 2023-08-15 04:06 | External Medical Summary | Summary of Care ---
Author Name Unknown Organization [facility] Address [address] [place] [address] Phone [phone] Care Team Providers Care Engine Room Helper Name Role Phone Sukh Holman MD Primary Care Provider [phone] Encounter Details Date Type Department Care Team (Late st Contact Info) Description 06/01/2023 Population Health External Data Unspecified Department Allergies Active Allergy Reactions Criticality Noted Date Comments Adhesive Tape Itching,Rash 07/29/2016 Paper tape is fine documented as of this encounter (statuses as of 06/02/2023) Medications Medication Sig Dispensed Refills Start Date [...] as of this encounter (statuses as of 06/02/2023) Active Problems Problem Noted Date Diagnosed Date [...] as of this encounter (statuses as of 06/02/2023) Resolved Problems Problem Noted Date Diagnosed Date [...] as of this encounter (statuses as of 06/02/2023) Immunizations Name Administration Dates Next Due COVID-19 [...] AM EDT Office Visit Pharmacy, [facility] [place] [address] [address] [facility] [address] [address] 06/29/2023 1:15 PM EDT Office Visit General Surgery, [facility] [place] [address] [address] Rosa Elena Faith MD [address] [facility] [place] [address] 08/10/2023 2:15 PM EDT Office Visit Hematology/Oncology [facility] [place] [address] [facility] [place] [address] Marciano Pagan MD [address] [place] [address] 08/13/2023 1:30 PM EDT Office Visit Cardiology, [facility] [place] [address] [place] [address] Rosa Elena Ko PA-C [address] [place] [address] 05/11/2024 2:00 PM EST Office Visit Care at Home [address] [place] [address] Awa Hurd PA-C [address] [place], [place] [id number] Scheduled Procedures Name Priority Associated Diagnoses Date/Ti [...] D LEVEL ONCE IN A LIFETIME-USE SMARTSET# [id number] Completed 01/23/2019, 08/10/2017, 07/06/2016, Additional history exists [...] this encounter Medical Devices Implanted Type Area Heating Element Repairer Device Identifier Shelf Expiration Date Model / Serial / Lot Headless Compression Screw Implanted:Qty: 1 on 07/26/2020 by South Mtz MD at OR [facility] Left: Finger AR-8725-24 H / / Description:left middle fing er Ascesion Silicone Pip Finger Implant Implanted:Qty: 1 on 07/26/2020 by South Mtz MD at OR [facility] Left: Finger 06/09/2022 [id number]-520-1 -[id number] / / [id number] Description:middle finger documented as of this encounter [...] the patient have Health Care Power of Tubing Oiler? No Full Code 12/09/2020 5:24 PM 12/11/2020 [...] the patient have Health Care Power of Tubing Oiler? No Full Code 02/17/2019 10:07 AM 02/17/2019 4:30 PM This order reflects the patients wishes and were consensually agreed upon. Care Teams Engine Room Helper Relationship Specialty Start Date End Date Sukh Holman MD [address] [facility] [place] [address] PCP - General Family Medicine 07/26/20 documented as of this encounter
--- OUTSIDE RECORDS SUMMARY | 2023-08-15 04:06 | External Medical Summary | Summary of Care ---
Author Name Unknown Organization [facility] Address [address] [place] [address] Phone [phone] Care Team Providers Care Adaptive Physical Educator Name Role Phone Sukh Holman MD Primary Care Provider [phone] Reason for Visit * Reason Onset Date Comments Medication Refill 05/28/2023 Encounter Details Date Type Department Care Team (Late st Contact Info) Description 05/28/2023 Refill Pharmacy, [facility] [address] [facility] [place] [address] Zahra Pagan MD [address] [place] [address] Anal squamous cell carcinoma (HCC) Allergies Active [...] Pain, Moderate. 60 Tablet 0 05/28/2023 Active HYDROmorphone HCl 4 MG Oral Tablet (Dilaudid)Indicatio ns:Anal squamous cell carcinoma (HCC) Take 1 Tablet by mouth every 4 hours as needed for Pain, Moderate. 60 Tablet 0 05/12/2023 4 Discontinu ed(Refill) [...] mRNA, LNP-s, No Pre serve, 2-Dose Series (Caviar) 10/03/2020,09/12/2020 H1N1 2009 Influenza, IM 05/03/2009 Hepatitis [...] Encounter - Rohan Pires RN - 05/28/2023 2:21 PM ESTSigned Prescriptions: Disp Refills HYDROmorphone HCl 4 MG Oral Tablet (Dilaud*60 Tab*0 Sig: Take 1Tablet by mouth every 4 hours as needed for Pain, Moderate.Authorizing Provider: ZAHRA PAGAN---- * Telephone Encounter - Zahra Pagan MD - 05/28/2023 2:17 PM EST E-prescribed hydromorphone * Telephone Encounter - Carla Daigle RN - 05/28/2023 1:32 PM EST PDMP reviewed. - MS Contin filled 05/12/23 for 60 tabs - Dilaudid filled 05/12/23 for 60 tabs * Telephone Encounter - Elliott Estrella [facility] - 05/28/2023 1:17 PM ESTPending Prescriptions: Disp Refills HYDROmorphone HCl 4 MG Oral Tablet (Dilaud*60 Tab*0 Sig: Take 1Tablet by mouth every 4 hours as needed for Pain, Moderate. documented in this encounter Plan of Treatment Upcoming Encounters Date Type Department Care Team (Late st Contact Info) Description 06/24/2023 11:30 AM EDT Office Visit Pharmacy, [address] [place] [address] [facility] 132 [place] [address] 06/29/2023 1:15 PM EDT Office Visit General Surgery, [facility] [address] [place] [address] Rosa Elena Faith MD [address] [place], [place] [id number] 08/10/2023 2:15 PM EDT Office Visit Hematology/Oncology [facility] [address] [facility] [place] [address] Zahra Pagan MD [address] [place] [address] 08/13/2023 1:30 PM EDT Office Visit Cardiology, [facility] [address] [place] [address] Rosa Elena Ko PA-C [address] [place] [address] 05/11/2024 2:00 PM EST Office Visit Care at Home [address] [place], [place] [id number] Awa Hurd PA-C [address] [place], [place] [phone] Scheduled Procedures Name Priority Associated Diagnoses Date/Ti me COLONOSCOPY FLEXIBLE PROXIMAL DIAGNOSTIC Recall History of anal cancer Health Maintenance Due Date Last Done Comments DISCUSS TOBACCO CESSATION (REFER TO SMARTSET #6041) 1955 Alpha-1 Antitrypsin 11/29/1973 Depression Screening 05/22/2020 [...] D LEVEL ONCE IN A LIFETIME-USE SMARTSET# 29981 Completed 01/23/2019, 08/10/2017, 07/06/2016, Additional history exists [...] this encounter Medical Devices Implanted Type Area Diesel Maintenance Electrician Device Identifier Shelf Expiration Date Model / Serial / Lot Headless Compression Screw Implanted:Qty: 1 on 07/26/2020 by South Mtz MD at OR [facility] Left: Finger AR-8725-24 H / / Description:left middle fing er Ascesion Silicone Pip Finger Implant Implanted:Qty: 1 on 07/26/2020 by South Mtz MD at OR [facility] Left: Finger 06/09/2022 [id number]-[id number] -[id number] / / [id number] Description:middle finger documented as of this encounter [...] the patient have Health Care Power of Pulping Machine Operator? No Full Code 12/09/2020 5:24 [...] the patient have Health Care Power of Pulping Machine Operator? No Full Code 02/17/2019 10:07 AM 02/17/2019 4:30 PM This order reflects the patients wishes and were consensually agreed upon. Care Teams Adaptive Physical Educator Relationship Specialty Start Date End Date Sukh Holman MD [address] [address] PCP - General Family Medicine 07/26/20 documented as of this encounter
[2023-08-15 06:26] LABS: Hematocrit (blood only) 33.4 % (37.0-47.0); Mean Corpuscular Hemoglobin 29.6 pg (25.0-34.0); Mean Corpuscular Hgb Conc 32.9 g/dL (32.0-36.0); Mean Platelet Volume 8.6 fL (9.4-12.4); Platelet Count 194 K/uL (130-400); RDW Coefficient of Variation 14.3 % (11.5-14.5); RDW Standard Deviation 46.6 fL (36.4-46.3); Red Blood Count 3.71 M/uL (4.20-5.40); White Blood Count 8.38 K/ul (4.8-10.8)
[2023-08-15 06:43] LABS: BUN Creatinine Ratio 10.3 (10-20); Calcium 8.4 mg/dl (8.6-10.3); Creatinine Clr Calc Pharmacy 59.2 ml/min; Est GFR (Non-African American) 60.4 ml/min; Magnesium 1.7 mg/dl (1.7-2.4); Potassium 3.4 mmol/L (3.5-5.1)
[2023-08-15] MEDS: predniSONE 20 MG TAB PO SCH (08:31)
--- NOTE | 2023-08-15 10:21 | Communication Note ---
Date of Service: August 15, 2023 Met with patient. Had isolated episode with blood in rectal discharge that has since stopped. She would prefer to address this with her colon rectal surgeon at [facility] whom she has an appt with at the end of the month Will not see patient and abide by her wishes for outpatient evaluation
[2023-08-15] MEDS: POTASSIUM CHLORIDE CRTAB 20 MEQ TABCR PO STA (10:41)
[2023-08-15] MEDS: MAGNESIUM SULFATE / D5W 1 GM/100 ML BAG IV SCH (10:42)
[2023-08-15 11:30] VITALS: BP 155/88; RESP 19; TEMP 97.9; O2SAT 89
--- NOTE | 2023-08-15 12:59 | Discharge Summary ---
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 She reported being in usual state of health talking with friends at a friend's house when she developed a aforementioned symptoms for which she presented to ED. she was found to be hypotensive and hypoxic on presentation and required 6 L of nasal cannula initially. Labs showed JOSEPHINE with hypokalemia, hypomagnesia hyponatremia. Normal WBC, normal Pro-Catarino, elevated lactate which resolved with IVF. VBG with some hypercarbia. She had received IV fluids, IV magnesium, IV steroids, nebs, and azithromycin and is on BiPAP prior to my encounter. She felt fine with results and of all symptoms during encounter. No more dizziness or back pain. She is awake alert and conversing fine. Her boyfriend was at bedside. Denies any fever, chills, chest pain, shortness of breath, nausea or vomiting. She does have COPD but continues to smoke about 10 cigarettes a day, however she declines nicotine patch. Denies alcohol or drug abuse. States she was diagnosed with left upper lobe lung cancer and completed radiation treatment about 8 months ago. She also states her blood pressure is usually low in the 80s and 90s at baseline. She denies any decrease in oral intake, vomiting or increased ileostomy output, however she does take Mobic daily for pain along with other pain medications. Admission Exam Per Admitting Provider General: Lying comfortably in bed, not in distress, on BiPAP HEENT: EOMI, ZACKARY Chest: Fair breath sounds bilaterally with some wheezes CVS: Regular, normal heart sound Abdomen: Soft, non tender, not distended, ileostomy noted with liquid output, normal bowel sounds Neuro: Awake, alert, oriented, conversing well, non focal Extremities: No edema Principal Diagnosis Acute hypoxic hypercarbic respiratory failure COPD with mild exacerbation Possible bronchitis Bloody mucosal output ME Acute kidney injury Discharge Exam General: Lying comfortably in bed, not in distress, on RA HEENT: EOMI, ZACKARY Chest: Fair breath sounds bilaterally , no wheezes CVS: Regular, normal heart sound Abdomen: Soft, non tender, not distended, ileostomy noted with semi solid output, normal bowel sounds Neuro: Awake, alert, oriented, conversing well, non focal Extremities: No edema Discharge Data Allergies Allergy/AdvReac Type Severity Reaction Status Date / Time adhesive Allergy Intermediate SWELLING/RA Verified 08/12/23 18:21 Consultations 08/12/23 18:36 ED Decision to Admit Stat 08/14/23 10:21 Consult Gastroenterology Routine Ordered Studies 08/12/23 17:09 CT angio chest PE protocol Stat Hospital Course (1) Acute hypoxic respiratory failure: (2) Hypotension: (3) JOSEPHINE (acute kidney injury): (4) Lactic acidosis: (5) Hypomagnesemia: (6) Hyponatremia: (7) Hypokalemia: (8) DM type 2 (diabetes mellitus, type 2): (9) COPD (chronic obstructive pulmonary disease): (10) Ileostomy present: Plan 67-year-old lady with PMH of lung cancer s/p radiation treatment 01/2023, SCC of anal canal s/p chemoradiation and diverting ileostomy 2020, COPD, current tobacco abuse, T2DM, chronic back pain, RLS, GERD presented to the ED with dizziness and pain between shoulder blades that started around 1 and half hours prior to presentation. Patient was hypoxic and hypotensive on presentation which improved with IV fluids, supplemental oxygen, nebs and steroids. She was managed for the following: Acute hypoxic hypercarbic respiratory failure- Possible bronchitis ABG noted. Does have history of COPD. initially on 6 L of NC at presentation, now on 2-3 L (uses 2L at home). CT chest with no PE but mucoid impaction. Patient reports improving cough, continue with home inhalers. Patient has been on room air for more than 24 hours, reports ambulating around without shortness of breath. She will be discharged on antibiotic to complete the course for possible bronchitis, she is aware to follow-up on the final results of the sputum culture with her PCP office during her next visit within 1 week. COPD with mild exacerbation- Patient with improving symptoms, improving breath sounds, no wheezes. On room air and moving around without shortness of breath. Will be discharged on tapering dose of steroid to complete the course. Patient to continue with home inhalers. Bloody mucosal Output ME: h/o scc anal canal. Has diverting ileostomy. Patient had bloody mucosal output ME 5/4, patient was worried that she had similar output prior to diagnosis of her cancer. GI evaluated, appreciate input. Hypotension-improved with IV, 90s to 100 at presentation. She does states she has low normal blood pressure at baseline in 80s and 90s. Electrolyte abnormalitieshypokalemia/hypomagnesemia: Monitor and replete. Hyponatremia-chronic, sodium 129, stable/improving. Lactic acidosis-resolved with IVF. WBC normal, Pro-Catarino normal, no fever, CT chest with no pneumonia. This could be related to hypoxia, rather than sepsis. Patient clinically looks stable. Acute kidney injury: Presentation creatinine 1.89, received contrast in the ED for CT chest. Patient was also taking Mobic at home. Avoid all NSAIDs. s/p ivf, JOSEPHINE resolved. Monitor renal function. Tobacco abuse-still smoking 10 cigarettes a day. Declines nicotine patch. Recommend quitting given her COPD and recent lung cancer, she states she is trying. Pt would like nicotine gum, ordered. 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 Under surveillance. Restless leg syndrome-continue ropinirole Chronic pain-on MS Contin, p.o. Dilaudid, Mobic, Flexeril, gabapentin. Will discontinue Mobic and c/w others as able. Diabetes mellitus type 2-hold metformin. Continue SSI, carb controlled diet. Adjust as indicated. DVT prophylaxis-subcu heparin Full code Disposition-PCU on telemetry Patient is being discharged to home with following instruction at the point of discharge: Follow-up with your primary care physician within a week time and likely you will need labs CBC/CMP/magnesium/phosphorus. For your possible bronchitis, you will be discharged on antibiotic to complete the course. Follow-up with your PCP office on the final results of your sputum culture as discussed at the bedside. You will be discharged on tapering dose of prednisone. For your episode of bloody mucus stool output ME, you plan to follow-up with outpatient GI and colorectal surgeon as per bedside discussion. Please maintain the follow-up. Avoid NSAIDs, you can take [id number] Tylenol for mild to moderate pain. You have prn opiate meds for severe pain. Strongly recommend against smoking tobacco. Take your medications as prescribed. Please make sure that you are able to get your medications today by calling your pharmacy before you leave the hospital so that your treatment continuity is not broken. Home Health Attestation I certify that this patient is under my care and that I, or a physicians career services assistant working with me, had a face to-face encounter that meets the home health [id number] encounter requirements with this patient. The encounter with the patient was in whole, or in part, for the following medical condition, which is the primary reason for home health care (list medical condition): I certify that, based on my findings, the following services are medically necessary home health services: My clinical findings support the need for the above services because: Further, I certify that my clinical findings support that this patient is homebound (i.e. absences from home require considerable and taxing effort and are for medical reasons or buddhist services or infrequently or of short duration when for other reasons) because: Certification for Home Health Services: Based on the above findings, I certify that this patient is confined to the home and needs intermittent fdc care, physical therapy and/or speech therapy or continues to need occupational therapy. The patient is under my care, and I have initiated the establishment of the plan of care. This patient will be followed by a physician who will periodically review the plan of care. Total Time Total Time Spent Total Time Spent (In Minutes): 45 Discharge Plan Discharge Items Patient Disposition: Home - Self-Care Reason For Visit: ACUTE HYPOXIC RESPIRATORY FAILURE Discharge Diagnosis: Acute hypoxic hypercarbic respiratory failure COPD with mild exacerbation Possible bronchitis Bloody mucosal output ME Acute kidney injury Activity: Resume your previous activity Non-emergency contact: Primary Care Provider Call non-emergency contact if: you have any medication questions, your symptoms worsen and your temperature is above 101.5 Follow-up/Referrals: Sukh Holman MD [Primary Care Provider] - Diet: Carb Consistent or DM2 Addtl Attending Provider Instructions: Follow-up with your primary care physician within a week time and likely you will need labs CBC/CMP/magnesium/phosphorus. For your possible bronchitis, you will be discharged on antibiotic to complete the course. Follow-up with your PCP office on the final results of your sputum culture as discussed at the bedside. You will be discharged on tapering dose of prednisone. For your episode of bloody mucus stool output ME, you plan to follow-up with outpatient GI and colorectal surgeon as per bedside discussion. Please maintain the follow-up. Avoid NSAIDs, you can take [id number] Tylenol for mild to moderate pain. You have prn opiate meds for severe pain. Strongly recommend against smoking tobacco. Take your medications as prescribed. Please make sure that you are able to get your medications today by calling your pharmacy before you leave the hospital so that your treatment continuity is not broken. Pending Studies at Discharge: Yes Stand-Alone Forms: My [facility], Smoking Cessation Medications and DC Order Prescriptions: New prednisone 20 mg Tablet 40 mg PO UD Qty: 7 0RF Rx Instructions: 2 tabs daily x 2 days, then 1 tab daily x 3 days, then stop. levofloxacin 750 mg tablet 750 mg PO DAILY 5 Days Qty: 5 0RF Probiotic 3 billion cell capsule 3,000 mmu cells PO DAILY 7 Days Qty: 7 0RF Rx Instructions: administer with a meal Continued hydromorphone [Dilaudid] 4 mg tablet 4 mg PO Q4H PRN (Reason: pain) prochlorperazine maleate [Compazine] 10 mg tablet 10 mg PO Q6H PRN (Reason: Constipation) ondansetron HCl 8 mg tablet 8 mg PO Q8H PRN (Reason: Nausea) albuterol sulfate 90 mcg/actuation HFA aerosol inhaler 2 puff inhalation Q4H PRN (Reason: Shortness Of Breath Or Wheezing) gabapentin 600 mg tablet 600 mg PO TID trazodone 50 mg tablet 50 mg PO HS pantoprazole [Protonix] 40 mg tablet,delayed release (DR/EC) 40 mg PO QAM metformin 1,000 mg tablet 1,000 mg PO BIDM fluticasone propionate 50 mcg/actuation spray,suspension 2 spray INTRANASAL QAM PRN (Reason: Allergy Symptoms) atorvastatin 20 mg Tablet 20 mg PO HS aspirin 81 mg Tablet,Delayed Release (Dr/Ec) 81 mg PO QAM bupropion HCl [Wellbutrin XL] 150 mg Tablet Extended Release 24 Hr 150 mg PO QAM cyclobenzaprine 10 mg tablet 10 mg PO TID Trelegy Ellipta 200-62.5-25 mcg blister with device 1 inh INHALATION DAILY ropinirole 3 mg tablet 3 mg PO HS propranolol 20 mg tablet 20 mg PO BID furosemide 40 mg tablet 40 mg PO DAILY PRN (Reason: Edema) morphine 15 mg tablet extended release 15 mg PO QAM Discontinued meloxicam 15 mg tablet 15 mg PO DAILY Discharge Orders: Discharge Order (Routine); Ordered 08/15/23 Ordered By: Heriberto Mckinnon/Other Patient Handouts: Managing Type 2 Diabetes Admission Data Admit Date/Time: 08/12/23 18:45 Attending Provider: Heriberto Golden Admit Provider: Taqueria Ye Primary Care Provider: Sukh Holman Other Providers: Taqueria Ye; Andrea Bynum Jr
[2023-08-15 14:41] VITALS: PULSE 99
--- NOTE | 2023-08-15 21:29 | Electrocardiogram Report ---
Test Reason : Blood Pressure : / mmHG Vent. Rate : 112 BPM Atrial Rate : 112 BPM P-R Int : 178 ms QRS Dur : 068 ms QT Int : 330 ms P-R-T Axes : 064 047 017 degrees QTc Int : 450 ms Poor data quality, interpretation may be adversely affected Sinus tachycardia Otherwise normal ECG When compared with ECG of 26-MAR-2022 10:24, Nonspecific T wave abnormality now evident in Inferior leads Confirmed by Kp Sosa ([id number]) on 08/15/2023 9:29:13 PM Referred By: REFERRED SELF Confirmed By:Kp Sosa
[2023-08-18] MEDS ORDERED: predniSONE 20 MG TAB PO SCH (09:00)
== END 2023-08-15 14:40 | disposition home or self-care (01) | DRG 189 ==
LOC: ED 16:19 → 2S 18:45 → SUATTDRO 18:45 → 2S 20:56

== ENCOUNTER 2023-12-23 21:03 | Observation (INO) ==
[2023-12-23] MEDS: ONDANSETRON INJ 2 MG/ML 2 ML VIAL IV STA ×2 (22:04→22:21)
[2023-12-23] MEDS: SODIUM CHLORIDE 0.9% 1,000 ML IV ONE (22:08)
[2023-12-23 22:16] LABS: Basophils # (auto) 0.03 K/uL (0.00-0.20); Basophils % (auto) 0.2 %; Eosinophils % (auto) 0.5 %; Hematocrit (blood only) 38.9 % (37.0-47.0); Hemoglobin 13.5 g/dl (12.0-16.0); Immature Granulocytes # (auto) 0.24 K/uL (0.01-0.20); Immature Granulocytes % (auto) 1.3 %; Lymphocytes # (auto) 0.59 K/uL (1.20-3.40); Lymphocytes % (auto) 3.2 %; Mean Corpuscular Hemoglobin 28.7 pg (25.0-34.0); Mean Corpuscular Hgb Conc 34.7 g/dL (32.0-36.0); Mean Corpuscular Volume 82.6 fL (80.0-100.0); Mean Platelet Volume 9.1 fL (9.4-12.4); Monocytes # (auto) 0.99 K/uL (0.11-0.59); Monocytes % (auto) 5.4 %; Neutrophils # (auto) 16.33 K/uL (1.40-6.50); Neutrophils % (auto) 89.4 %; Nucleated RBC # (auto) 0.02 K/uL (0.00-0.12); Nucleated RBC % (auto) 0.1 %; Platelet Count 334 K/uL (130-400); RDW Coefficient of Variation 14.7 % (11.5-14.5); RDW Standard Deviation 44.6 fL (36.4-46.3); Red Blood Count 4.71 M/uL (4.20-5.40); White Blood Count 18.28 K/ul (4.8-10.8)
[2023-12-23] MEDS: FAMOTIDINE 20MG IV PUSH 20 MG/5 ML SYR IV STA (22:23)
[2023-12-23 22:30] LABS: iSTAT Creatinine 2.8 mg/dl (0.6-1.3); iSTAT Hemoglobin 13.9 g/dl (12.0-16.0); iSTAT Ionized Calcium 1.02 mmol/l (1.12-1.32); iSTAT Potassium 2.8 mmol/L (3.3-5.0)
[2023-12-23 22:32] LABS: Albumin Globulin Ratio 1.7 (0.9-2); Albumin Level 4.5 gm/dl (3.4-5.0); BUN Creatinine Ratio 29.9 (10-20); Creatinine Clr Calc Pharmacy 18.9 ml/min; Est GFR (African American) 20.7 ml/min; Est GFR (Non-African American) 17.9 ml/min; Globulin 2.6 gm/dl (2.5-4.0); Potassium 2.9 mmol/L (3.5-5.1); Total Protein 7.1 gm/dl (6.0-8.3)
[2023-12-23 22:44] LABS: Influenza A virus by PCR Negative (Neg); Influenza B virus by PCR Negative (Neg); RSV by PCR Negative (Neg); SARS CoV2 RNA(COVID-19) Ceph NEGATIVE (Negative)
[2023-12-23 23:01] LABS: INR 1.1 (0.9-1.1); Partial Thromboplastin Time 26 Seconds (21-31); Prothrombin Time 11.5 Seconds (9.0-12.0)
[2023-12-23 23:04] LABS: Magnesium 1.3 mg/dl (1.7-2.4)
[2023-12-23] MEDS: POTASSIUM CHLORIDE CRTAB 20 MEQ TABCR PO STA (23:11)
[2023-12-23] MEDS: POTASSIUM CHLORIDE / WTR 10 MEQ/100 ML PLCT IV SCH (23:11)
--- NOTE | 2023-12-23 23:13 | Emergency Department Note ---
History of Present Illness General Chief complaint: Confusion Stated complaint: VOMITING, POOR APPETITIE, CONFUSION, FATIGUE Time Seen by Provider: 12/23/23 21:52 History of Present Illness This 68-year-old female with a history of cancer currently cancer free with an ostomy presents ER for complaining of feeling weak and not right for the past 4 days she has had black stool coming out of her ostomy. Patient also complains of abdominal pain and shortness of breath. She continues to smoke. Patient denies fever, chills, cough, congestion, vomiting, diarrhea. No history of blood transfusion. Home Medications Medication Instructions Recorded Confirmed Type aspirin 81 mg tablet,delayed 81 mg PO QAM 02/26/19 12/24/23 History release atorvastatin 20 mg tablet 20 mg PO HS 02/26/19 12/24/23 History fluticasone propionate 50 2 spray intranasal QAM PRN Allergy 02/26/19 12/24/23 History mcg/actuation nasal Symptoms spray,suspension metformin 1,000 mg tablet 1,000 mg PO BIDM 02/26/19 12/24/23 History pantoprazole 40 mg tablet,delayed 40 mg PO QAM 02/26/19 12/24/23 History release (Protonix) trazodone 50 mg tablet 50 mg PO HS 02/26/19 12/24/23 History albuterol sulfate 90 mcg/actuation 2 puff inhalation Q4H PRN 03/31/19 12/24/23 History aerosol inhaler Shortness Of Breath Or Wheezing hydromorphone 4 mg tablet 4 mg PO Q4H PRN pain 07/27/19 12/24/23 History (Dilaudid) cyclobenzaprine 10 mg tablet 10 mg PO TID Muscle Spasm 11/17/19 12/24/23 History ondansetron HCl 8 mg tablet 8 mg PO Q8H PRN Nausea 05/29/20 12/24/23 History prochlorperazine maleate 10 mg 10 mg PO Q6H PRN Constipation 05/29/20 12/24/23 History tablet (Compazine) fluticasone fur. 200 mcg-umeclid 1 inh inhalation DAILY 03/02/22 12/24/23 History 62.5 mcg-vilant 25 mcg inhalat.powder (Trelegy Ellipta) propranolol 20 mg tablet 20 mg PO AMHS 03/02/22 12/24/23 History furosemide 40 mg tablet 40 mg PO DAILY PRN Edema 03/26/22 12/24/23 History morphine 15 mg tablet,extended 15 mg PO QAM 08/12/23 12/24/23 History release alendronate 70 mg tablet 70 mg PO WK 12/24/23 12/24/23 History bupropion HCl 300 mg 24 hr tablet, 300 mg PO QAM 12/24/23 12/24/23 History extended release gabapentin 300 mg capsule 300 mg PO TID 12/24/23 12/24/23 History nystatin 100,000 unit/gram topical 1 applic topical TID 12/24/23 12/24/23 History powder (Klayesta) ropinirole 6 mg tablet,extended 6 mg PO HS 12/24/23 12/24/23 History release 24 hr Allergies Allergy/AdvReac Type Severity Reaction Status Date / Time adhesive Allergy Intermediate SWELLING/RA Verified 12/24/23 01:19 Past Med/Surg History Problem List (Updated 12/24/23 @ 01:29 by Alix Gross PA-C) JOSEPHINE (acute kidney injury) (Acute) Hypokalemia (Acute) Hypomagnesemia (Acute) Acute hyponatremia (Acute) Acute GI bleeding (Acute) Acute exacerbation of chronic obstructive pulmonary disease (Acute) Acute respiratory failure with hypoxia and hypercarbia (Acute) Lactic acidosis Hypokalemia Hypotension Acute hypoxic respiratory failure Primary cancer of left upper lobe of lung (Chronic 11/26/22) Acute hyponatremia (Acute) Hypomagnesemia (Acute) Tachycardia JOSEPHINE (acute kidney injury) (Acute) Hyponatremia Hypomagnesemia Ileostomy present Hypoxia Essential tremor DVT prophylaxis Fibromyalgia Chronic back pain HLD (hyperlipidemia) COPD (chronic obstructive pulmonary disease) DM type 2 (diabetes mellitus, type 2) Parastomal hernia with obstruction and without gangrene (Acute) 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 Invasive, moderately differientiated, P-16 positive, Positive margin. s/p ileostomy, completed mitomycin x1 dose on 06/14/2019 and Xeloda along with radiation treatment between 06/09/2019-07/28/2019 Breast infection in female Hx of chronic left breast infections for 20 years Heart murmur Hyperlipemia Degenerative disc disease Constipation Bleeding hemorrhoids History of hemorrhoids Low back pain with right-sided sciatica multiple pain management injections with Dr. Archer Hip pain, chronic right Bursitis, scapulohumeral Surgical History S/P trigger finger release Status post trigger finger release History of shoulder surgery right 2009, ;left-2012. History of hernia repair History of breast surgery nipple areola reconstruction, s/p multiple infections History of neck surgery excision of lipoma-08/23/17 History of cholecystectomy 08/17/16 History of arthroscopy of right knee History of arthroplasty of left knee History of rectal abscess with I &D 05/05/19 History of colonoscopy 2010, 2016 History of breast biopsy 1994, 2001 History of hysterectomy age 37 History of hemorrhoidectomy 02/17/19 Family History Grandmother (Maternal) , in 60's Lung cancer Brother No problems noted. Sister No problems noted. Daughter No problems noted. Son No problems noted. 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 Feels Safe at Home: Yes Childhood Exposure to Second-Hand Smoke: Yes caffeine: Yes (mountain dew daily 2 liters a day) Dental Care, Regularly: No Assistive Devices: Cane, Glasses and Oxygen - Continuous Review of Systems A total of 10 systems reviewed and were otherwise negative Physical Exam Vital Signs Vital Signs - 24 hr 12/23/23 21:07 12/23/23 21:42 12/23/23 21:45 Temperature 36.9 C Temperature Source Temporal Artery Scan Pulse Rate 119 H 118 H Pulse Rate [Apical] 119 H Pulse Rate from SpO2 Sensor Respiratory Rate 19 25 H Respiratory Effort / Characteristics Non-Labored Spontaneous Non-Labored Spontaneous Respiratory Depth Normal Normal Respiratory Pattern Regular Blood Pressure 110/87 Blood Pressure [Left Arm] 115/80 Blood Pressure Mean 94 Blood Pressure Mean [Left Arm] 91 Blood Pressure Position [Left Arm] Semi-fowlers Pulse Oximetry 93 94 Oxygen Delivery Method Room Air Room Air Sepsis Recent Fever Within 48 Hours No Sepsis New/Unexplained Change in Mental Status N/A Sepsis Action Taken by Nursing No Action Required 12/23/23 21:58 12/23/23 23:04 12/23/23 23:09 Temperature Temperature Source Pulse Rate 110 H Pulse Rate [Apical] 112 H Pulse Rate from SpO2 Sensor 110 H Respiratory Rate 19 19 Respiratory Effort / Characteristics Non-Labored Spontaneous Respiratory Depth Normal Respiratory Pattern Regular Blood Pressure 125/75 Blood Pressure [Left Arm] 125/75 Blood Pressure Mean 91 Blood Pressure Mean [Left Arm] 91 Blood Pressure Position [Left Arm] Semi-fowlers Pulse Oximetry 94 97 97 Oxygen Delivery Method Room Air Room Air Room Air Sepsis Recent Fever Within 48 Hours Sepsis New/Unexplained Change in Mental Status Sepsis Action Taken by Nursing 12/24/23 00:09 Temperature Temperature Source Pulse Rate 114 H Pulse Rate [Apical] Pulse Rate from SpO2 Sensor Respiratory Rate 19 Respiratory Effort / Characteristics Respiratory Depth Respiratory Pattern Blood Pressure 134/84 Blood Pressure [Left Arm] Blood Pressure Mean 100 Blood Pressure Mean [Left Arm] Blood Pressure Position [Left Arm] Pulse Oximetry 98 Oxygen Delivery Method Room Air Sepsis Recent Fever Within 48 Hours Sepsis New/Unexplained Change in Mental Status Sepsis Action Taken by Nursing VITALS: Vitals are noted on the nurse's note and reviewed by myself. Vital signs stable. GENERAL: Pleasant female with partner present, in no acute distress, nondiaphoretic, well-developed well-nourished. SKIN: The skin was without rashes, erythema, edema, or bruising. There is no tenting of the skin. Capillary reflex less than 2 seconds. HEAD: Normocephalic atraumatic. EARS: External auditory canals clear EYES: Pupils equal round and reactive to light and accommodation. Conjunctivae without injection, sclerae without icterus. Extraocular movements intact. NOSE: Patent, no discharge. MOUTH: Mucous membranes moist. Pharynx without erythema or exudate. Uvula midline. Airway patent. Tongue does not deviate. NECK: Supple without nuchal rigidity. No lymphadenopathy. No thyromegaly. Cervical spine is nontender. No JVD. HEART: Regular rate and rhythm LUNGS: Clear to auscultation bilaterally without wheezes, rales or rhonchi. No retractions or accessory muscle use. ABDOMEN: Positive bowel sounds x 4. Normal tympanic percussion. Soft, diffusely tender to palpation with ostomy in the right mid abdomen, black stool that is guaiac positive, without masses or organomegaly. Do sign negative. No guarding or rebound tenderness. No CVA tenderness MUSCULOSKELETAL: No muscle atrophy, erythema, or edema noted. NEURO: Patient was alert and oriented to person place and time. Normal sensation to light and sharp touch. No focal neurological deficits. Course Administered Medications Discontinued Medications Pantoprazole Sodium 80 mg/ (Dextrose) 120 mls @ 480 mls/hr IV ONE STA Stop: 12/23/23 22:17 Last Infusion: 12/24/23 00:08 Dose: Infused Documented By: Admin: 12/23/23 23:49 Dose: 480 mls/hr Documented By: RAIZA Famotidine (Pepcid 20mg Iv Push) 20 mg in 5 mls @ 2.5 mls/min IV NOW STA Stop: 12/23/23 22:04 Last Admin: 12/23/23 22:23 Dose: 2.5 mls/min Documented By: KILEY Sodium Chloride (Nss) 1,000 mls @ 999 mls/hr IV .Q1H1M ONE Stop: 12/23/23 23:03 Last Infusion: 12/23/23 23:20 Dose: Infused Documented By: Admin: 12/23/23 22:08 Dose: 999 mls/hr Documented By: KILEY Potassium Chloride (K Kyaw / Wtr) 10 meq in 100 mls @ 100 mls/hr IV Q1H HANNAH Stop: 12/24/23 01:29 Last Admin: 12/24/23 00:23 Dose: 100 mls/hr Documented By: Infusion: 12/24/23 00:11 Dose: Infused Documented By: Admin: 12/23/23 23:11 Dose: 100 mls/hr Documented By: KILEY Magnesium Sulfate/Dextrose (Magnesium Sulfate / D5w) 1 gm in 100 mls @ 100 mls/hr IV Q1H HANNAH Stop: 12/24/23 01:12 Last Admin: 12/24/23 00:35 Dose: 100 mls/hr Documented By: Infusion: 12/24/23 00:35 Dose: Infused Documented By: Admin: 12/23/23 23:49 Dose: 100 mls/hr Documented By: RAIZA Ondansetron HCl (Ondansetron Inj 2 Mg/Ml 2 Ml Vial) 4 mg IV NOW STA Stop: 12/23/23 22:00 Last Admin: 12/23/23 22:04 Dose: 4 mg Documented By: KILEY Ondansetron HCl (Ondansetron Inj 2 Mg/Ml 2 Ml Vial) 4 mg IV NOW STA Stop: 12/23/23 22:04 Last Admin: 12/23/23 22:21 Dose: Not Given Documented By: KILEY Potassium Chloride (Potassium Chloride Crtab 20 Meq Tabcr) 40 meq PO NOW STA Stop: 12/23/23 22:31 Last Admin: 12/23/23 23:11 Dose: 40 meq Documented By: KILEY Critical Care Time Critical Care Time: Yes Total Critical Care Time: 35 I have personally spent 35 minutes of critical care time in the direct management of this patient. This includes bedside care, interpretation of diagnostic studies, and testing, discussion with consultants, patient, and family members, and other required patient management activities. This 35 minutes is in excess of all separately billable procedures. Medical Decision Making Medical Records Attestation: I reviewed the patient's medical records. Home Medications Current Medication List: was personally reviewed by me Laboratory Data Attestation: I reviewed the patient's lab results. 12/23/23 21:48 12/23/23 21:48 Lab Results 12/23/23 12/23/23 12/23/23 Range/Units 21:45 21:48 22:18 WBC 18.28 H (4.8-10.8) K/ul RBC 4.71 (4.20-5.40) M/uL Hgb 13.5 (12.0-16.0) g/dl POC Hgb 13.9 (12.0-16.0) g/dl Hct 38.9 (37.0-47.0) % POC Hct 41 (37-47) % MCV 82.6 (80.0-100.0) fL MCH 28.7 (25.0-34.0) pg MCHC 34.7 (32.0-36.0) g/dL RDW Std Deviation 44.6 (36.4-46.3) fL RDW Coeff of Chelle 14.7 H (11.5-14.5) % Plt Count 334 (130-400) K/uL MPV 9.1 L (9.4-12.4) fL Immature Gran % (Auto) 1.3 % Neut % (Auto) 89.4 % Lymph % (Auto) 3.2 % [place] % (Auto) 5.4 % Eos % (Auto) 0.5 % Baso % (Auto) 0.2 % Neut # (Auto) 16.33 H (1.40-6.50) K/uL Lymph # (Auto) 0.59 L (1.20-3.40) K/uL [place] # (Auto) 0.99 H (0.11-0.59) K/uL Eos # (Auto) 0.10 (0.00-0.50) K/uL Baso # (Auto) 0.03 (0.00-0.20) K/uL Immature Gran # (Auto) 0.24 H (0.01-0.20) K/uL Absolute Nucleated RBC 0.02 (0.00-0.12) K/uL Nucleated RBC % (auto) 0.1 % PT 11.5 (9.0-12.0) Seconds INR 1.1 (0.9-1.1) APTT 26 (21-31) Seconds PTT Ratio 1.0 POC Sodium 129 L (135-144) mmol/L Sodium 131 L (136-145) mmol/L POC Potassium 2.8 L (3.3-5.0) mmol/L Potassium 2.9 L (3.5-5.1) mmol/L POC Chloride 89 L (101-112) mmol/L Chloride 87 L (98-107) mmol/L Carbon Dioxide 25 (21-32) mmol/L POC Total CO2 26 (24-31) mmol/L Anion Gap 19 H (3-11) POC Anion Gap 18.0 (16-25) mmol/L POC BUN 71 H (7-18) mg/dl BUN 79 H (6-23) mg/dl Creatinine 2.64 H (0.6-1.2) mg/dl POC Creatinine 2.8 H (0.6-1.3) mg/dl Est Cr Clr Drug Dosing 18.9 ml/min Est GFR ( Amer) 20.7 ml/min Est GFR (Non-Af Amer) 17.9 ml/min BUN/Creatinine Ratio 29.9 H (10-20) Glucose 196 H (70-99(Fasting)) mg/dl POC Glucose (other) 189 H (70-99) mg/dl Osmolality 299 (280-300) mOsm/kg Calcium 9.0 (8.6-10.3) mg/dl POC Ioniz Calcium Uday 1.02 L (1.12-1.32) mmol/l Magnesium 1.3 L (1.7-2.4) mg/dl Total Bilirubin 1.0 (0.2-1.0) mg/dl AST 13 (13-39) U/L ALT 9 (7-52) U/L Alkaline Phosphatase 50 (34-104) U/L Troponin I High Sens 111.8 H* (0-14) pg/ml Total Protein 7.1 (6.0-8.3) gm/dl Albumin 4.5 (3.4-5.0) gm/dl Globulin 2.6 (2.5-4.0) gm/dl Albumin/Globulin Ratio 1.7 (0.9-2) SARS-CoV-2 (PCR) NEGATIVE (Negative) Influenza Type A (PCR) Negative (Neg) Influenza Type B (PCR) Negative (Neg) RSV (RT-PCR) Negative (Neg) 12/23/23 Range/Units 23:47 WBC (4.8-10.8) K/ul RBC (4.20-5.40) M/uL Hgb (12.0-16.0) g/dl POC Hgb (12.0-16.0) g/dl Hct (37.0-47.0) % POC Hct (37-47) % MCV (80.0-100.0) fL MCH (25.0-34.0) pg MCHC (32.0-36.0) g/dL RDW Std Deviation (36.4-46.3) fL RDW Coeff of Chelle (11.5-14.5) % Plt Count (130-400) K/uL MPV (9.4-12.4) fL Immature Gran % (Auto) % Neut % (Auto) % Lymph % (Auto) % [place] % (Auto) % Eos % (Auto) % Baso % (Auto) % Neut # (Auto) (1.40-6.50) K/uL Lymph # (Auto) (1.20-3.40) K/uL [place] # (Auto) (0.11-0.59) K/uL Eos # (Auto) (0.00-0.50) K/uL Baso # (Auto) (0.00-0.20) K/uL Immature Gran # (Auto) (0.01-0.20) K/uL Absolute Nucleated RBC (0.00-0.12) K/uL Nucleated RBC % (auto) % PT (9.0-12.0) Seconds INR (0.9-1.1) APTT (21-31) Seconds PTT Ratio POC Sodium (135-144) mmol/L Sodium (136-145) mmol/L POC Potassium (3.3-5.0) mmol/L Potassium (3.5-5.1) mmol/L POC Chloride (101-112) mmol/L Chloride (98-107) mmol/L Carbon Dioxide (21-32) mmol/L POC Total CO2 (24-31) mmol/L Anion Gap (3-11) POC Anion Gap (16-25) mmol/L POC BUN (7-18) mg/dl BUN (6-23) mg/dl Creatinine (0.6-1.2) mg/dl POC Creatinine (0.6-1.3) mg/dl Est Cr Clr Drug Dosing ml/min Est GFR ( Amer) ml/min Est GFR (Non-Af Amer) ml/min BUN/Creatinine Ratio (10-20) Glucose (70-99(Fasting)) mg/dl POC Glucose (other) (70-99) mg/dl Osmolality (280-300) mOsm/kg Calcium (8.6-10.3) mg/dl POC Ioniz Calcium Uday (1.12-1.32) mmol/l Magnesium (1.7-2.4) mg/dl Total Bilirubin (0.2-1.0) mg/dl AST (13-39) U/L ALT (7-52) U/L Alkaline Phosphatase (34-104) U/L Troponin I High Sens 101.0 H* (0-14) pg/ml Total Protein (6.0-8.3) gm/dl Albumin (3.4-5.0) gm/dl Globulin (2.5-4.0) gm/dl Albumin/Globulin Ratio (0.9-2) SARS-CoV-2 (PCR) (Negative) Influenza Type A (PCR) (Neg) Influenza Type B (PCR) (Neg) RSV (RT-PCR) (Neg) Imaging Data Attestation: I personally reviewed and interpreted this imaging study as follows: Radiologist's Impression: Abdomen/Pelvis CT 12/23/23 22:28 Exam(s): CT ABDOMEN + PELVIS Without Contrast EXAM: CT Abdomen and Pelvis Without Intravenous Contrast CLINICAL HISTORY: Reason for exam: GI bleed, abd pain. TECHNIQUE: Axial computed tomography images of the abdomen and pelvis without intravenous contrast. CTDI is 24.25 mGy and DLP is 1093.85 mGy-cm. Automated exposure control was utilized for the study. A dose lowering technique was utilized adhering to the principles of ALARA. COMPARISON: 03/02/2022. FINDINGS: Exam is limited due to lack of contrast material Lung bases: No consolidation. There is a calcification in the right lung base most compatible with old granulomatous disease. ABDOMEN: Liver: The liver is enlarged. There are small calcifications within the liver. There is a 1.2 cm lucency in the right lobe of the liver (series 2, image 26). Gallbladder and bile ducts: The patient is status post cholecystectomy.. No ductal dilation. Pancreas: The visualized portions of the pancreas, on this noncontrast study, are grossly unremarkable.. Spleen: No splenomegaly. There are small calcifications within the spleen. Adrenals: Heart is Kidneys and ureters: No obstructing stones. No hydronephrosis. Stomach and bowel: The stomach is distended containing fluid and air. The colon is relatively decompressed.. An ostomy site is noted in the right lower quadrant.. There is distended loops of air-filled small bowel. PELVIS: Appendix: Unremarkable CT scan appearance noted the appendix.. Bladder: Urinary bladder is distended. No bladder calculi are noted.. Reproductive: Patient appears to be status post hysterectomy.. ABDOMEN and PELVIS: Intraperitoneal space: No free air. No significant fluid collection. Bones/joints: There are marked degenerative changes in the spine.. Soft tissues: Unremarkable. Vasculature: There are atherosclerotic changes. No abdominal aortic aneurysm. Lymph nodes: No enlarged lymph nodes. IMPRESSION: Limited exam. An ostomy site is noted in the right lower quadrant.. There is distended loops of air-filled small bowel. This may represent an ileus. There is evidence for old granulomatous disease. 1.2 cm lucency in the right lobe of the liver may represent a cyst. Electronically signed by: Yusuf Lieberman MD 12/24/23 00:54 AM MDM Narrative Prior records/ancillary studies reviewed and summarized above. Nursing notes reviewed. Additional history obtained from family. The patient's history was concerning for feeling weak. Differential diagnosis: Etiologies such as GI bleed, intra-abdominal, metabolic, infection, hypo/hyperglycemia, electrolyte abnormalities, cardiac sources, intracerebral event, toxicologic, neurologic, as well as others were entertained. Physical examination: As above. ER treatment provided: IV Lock An order was placed for continuous cardiac monitoring. The monitor shows a rate of 60-100 with a sinus rhythm per my interpretation. IV fluids, potassium, type and screen was sent. Patient was consented to blood if warranted Protonix Pepcid and Zofran were ordered for GI bleed On reassessment the patient felt better. Diagnostics interpretation by me: #1 ECG: Ordered for weakness EKG: Poor baseline, normal sinus, normal intervals, no acute ST-T changes, rate 120. Impression sinus tachycardia poor baseline independently interpreted by myself #2 EKG ordered for positive troponin EKG: Normal sinus, poor baseline, no acute ST-T wave changes, rate of 116. Impression sinus tachycardia independently interpreted by myself The labs Independently Interpreted by myself revealed i-STAT with hypokalemia and acute kidney injury Potassium 2.9. Hyponatremia, creatinine 2.6. Low magnesium Elevated troponin most likely type II NH. Repeat was ordered and is slightly lower Hyponatremia and osmolarity levels were ordered Imaging studies: Chest x-ray with no acute consolidation, pneumothorax or free air per my independent interpretation Consultation: A consultation was placed with the hospitalist. The case was discussed and diagnostics were reviewed. The patient was evaluated in the ER for further treatment. Exam and history seem consistent with GI bleed with electrolyte abnormalities and acute kidney injury. Patient was medicated as above. She was reassessed multiple times. Type and Screen was sent. She was consented if blood was warranted. She was reassessed multiple times. Patient will be mated to the Medical service for further evaluation treatment. Medicine was consulted and the case was discussed. By the evaluation outlined above emergent etiologies such as infection, intracerebral event, toxologic, neurologic, abnormalities blood glucose, metabolic, as well as others were deemed relatively unlikely. The pt informed about the findings as listed above. All questions were answered and pleased with the treatment. The chart was completed utilizing [employer] Speech voice recognition software. Grammatical errors, random word insertions, pronoun errors, and incomplete sentences are an occassional consequence of this system due to software limitations, ambient noise, and hardware issues. Any formal questions or concerns about the content, text, or information contained within the body of this dictation should be directly addressed to the physician res habilitation assistant for clarification. Attending Attestation: I [place] Mccarthy MD I have reviewed the advanced practitioner's documentation and agree with the plan of care. I accept the responsibility for the associated risk of managing the patient. I performed a substantive portion of the visit including involvement in all aspects of medical decision making. Imaging here are generally reassuring. Laboratory studies multiple abnormalities including concern for possible GI bleed although not anemic was consented for blood. Received electrolyte repletion and IV fluids as evidence of some renal dysfunction. Troponin elevation likely more demand. She will come into the hospital for further care and hospitalist was consulted. Impression & Plan Acute GI bleeding, Acute hyponatremia, Hypomagnesemia, Hypokalemia, JOSEPHINE (acute kidney injury) Discharge Plan Visit Data Chief Complaint: Confusion Stated Complaint: VOMITING, POOR APPETITIE, CONFUSION, FATIGUE ED Provider: [place] Mccarthy ED Midlevel Provider: Alix Gross Discharge Problem: Acute GI bleeding, Acute hyponatremia, Hypomagnesemia, Hypokalemia, JOSEPHINE (acute kidney injury) Patient Disposition: Admitted As Inpatient Condition: Fair Forms Stand Alone Forms: My [employer] Prescriptions Prescriptions: No Action hydromorphone [Dilaudid] 4 mg tablet 4 mg PO Q4H PRN (Reason: pain) prochlorperazine maleate [Compazine] 10 mg tablet 10 mg PO Q6H PRN (Reason: Constipation) ondansetron HCl 8 mg tablet 8 mg PO Q8H PRN (Reason: Nausea) albuterol sulfate 90 mcg/actuation HFA aerosol inhaler 2 puff inhalation Q4H PRN (Reason: Shortness Of Breath Or Wheezing) trazodone 50 mg tablet 50 mg PO HS pantoprazole [Protonix] 40 mg tablet,delayed release (DR/EC) 40 mg PO QAM metformin 1,000 mg tablet 1,000 mg PO BIDM fluticasone propionate 50 mcg/actuation spray,suspension 2 spray INTRANASAL QAM PRN (Reason: Allergy Symptoms) atorvastatin 20 mg Tablet 20 mg PO HS aspirin 81 mg Tablet,Delayed Release (Dr/Ec) 81 mg PO QAM cyclobenzaprine 10 mg tablet 10 mg PO TID Trelegy Ellipta 200-62.5-25 mcg blister with device 1 inh INHALATION DAILY propranolol 20 mg tablet 20 mg PO AMHS furosemide 40 mg tablet 40 mg PO DAILY PRN (Reason: Edema) alendronate 70 mg tablet 70 mg PO WK Rx Instructions: sundays nystatin [Klayesta] 100,000 unit/gram powder 1 applic TOPICAL TID bupropion HCl 300 mg tablet extended release 24 hr 300 mg PO QAM ropinirole 6 mg tablet extended release 24 hr 6 mg PO HS gabapentin 300 mg capsule 300 mg PO TID morphine 15 mg tablet extended release 15 mg PO QAM Referrals Referrals: Sukh Holman MD [Primary Care Provider] -
[2023-12-23] MEDS: MAGNESIUM SULFATE / D5W 1 GM/100 ML BAG IV SCH (23:49)
[2023-12-23] MEDS: PANTOprazole 80 MG in DEXTROSE 5% 100 ML IV STA (23:49)
[2023-12-23 23:54] LABS: Troponin I High Sensitivity 111.8 pg/ml (0-14)
--- NOTE | 2023-12-24 00:55 | CT Scan Report ---
Exam(s): CT ABDOMEN + PELVIS Without Contrast EXAM: CT Abdomen and Pelvis Without Intravenous Contrast CLINICAL HISTORY: Reason for exam: GI bleed, abd pain. TECHNIQUE: Axial computed tomography images of the abdomen and pelvis without intravenous contrast. CTDI is 24.25 mGy and DLP is 1093.85 mGy-cm. Automated exposure control was utilized for the study. A dose lowering technique was utilized adhering to the principles of ALARA. COMPARISON: 03/02/2022. FINDINGS: Exam is limited due to lack of contrast material Lung bases: No consolidation. There is a calcification in the right lung base most compatible with old granulomatous disease. ABDOMEN: Liver: The liver is enlarged. There are small calcifications within the liver. There is a 1.2 cm lucency in the right lobe of the liver (series 2, image 26). Gallbladder and bile ducts: The patient is status post cholecystectomy.. No ductal dilation. Pancreas: The visualized portions of the pancreas, on this noncontrast study, are grossly unremarkable.. Spleen: No splenomegaly. There are small calcifications within the spleen. Adrenals: Heart is Kidneys and ureters: No obstructing stones. No hydronephrosis. Stomach and bowel: The stomach is distended containing fluid and air. The colon is relatively decompressed.. An ostomy site is noted in the right lower quadrant.. There is distended loops of air-filled small bowel. PELVIS: Appendix: Unremarkable CT scan appearance noted the appendix.. Bladder: Urinary bladder is distended. No bladder calculi are noted.. Reproductive: Patient appears to be status post hysterectomy.. ABDOMEN and PELVIS: Intraperitoneal space: No free air. No significant fluid collection. Bones/joints: There are marked degenerative changes in the spine.. Soft tissues: Unremarkable. Vasculature: There are atherosclerotic changes. No abdominal aortic aneurysm. Lymph nodes: No enlarged lymph nodes. IMPRESSION: Limited exam. An ostomy site is noted in the right lower quadrant.. There is distended loops of air-filled small bowel. This may represent an ileus. There is evidence for old granulomatous disease. 1.2 cm lucency in the right lobe of the liver may represent a cyst. Electronically signed by: Yusuf Lieberman MD 12/24/23 00:54 AM
[2023-12-24] MEDS: MAGNESIUM SULFATE / D5W 1 GM/100 ML BAG IV ONE (03:18)
--- NOTE | 2023-12-24 03:18 | History & Physical Report ---
Date of Service December 24, 2023 Assessment & Plan (1) GI bleed: Plan: 68-year-old female with past medical history significant for type 2 diabetes, hyperlipidemia, history of COPD, supplemental oxygen dependent, chronic heart failure with preserved ejection fraction, hypertension, aortic valve sclerosis, atherosclerosis of both carotid arteries, GERD, fibromyalgia, restless leg syndrome, osteoporosis, essential tremor, migraine, cerebral atrophy, iron def iciency anemia, tobacco use disorder, history of lung cancer s/p radiation treatment 01/2023, history of squamous cell cancer of anal canal status post chemoradiation and diverting ileostomy 2020, chronic back pain comes because of persistent nausea and vomiting since last 2 to 3 days and also the vomitus was dark in color and on the ileostomy bag stools are also black color. Patient also thinks she is getting somewhat confused and not remembering things which prompted her to come to the ER. Denies any fevers. Has some chest discomfort. Has shortness of breath. Has abdominal pain. Has mild headache. No cough. Currently hemodynamics are okay.Patient can tell her name, knows she is in the hospital, knows current month but could not tell current year. Otherwise answering appropriately and able to give her history. GI bleed Has vomiting which is dark in color Ileostomy bag has dark stools Blood consent obtained in the ER Hemoglobin stable stool hemeoccult Vital stable On PPI drip N.p.o. IV fluids GI consult Close monitor Persistent nausea and vomiting Possible ileus N.p.o. IV fluids IV antiemetics as needed CT abdomen pelvis shows possible ileus GI consult Will monitor Confusion Mild has leukocytosis Ua ok, cxr o. will follow blood x follow stool studies empiric Rocephin 48hrs stop Possible from dehydration, josephine and pain meds follow abg Close monitor Hypokalemia Will replace Follow labs Hypomagnesia Replace Follow labs Hyponatremia Sodium 131 Getting fluids Follow repeat labs JOSEPHINE Baseline creatinine 0.9 Presented with creatinine of 2.6 Avoid nephrotoxic agents Follow repeat labs Elevated troponin Troponin 101 EKG okay Says has mild chest discomfort Will follow serial enzymes and echo Will consult cardiology History of heart failure with preserved ejection fraction On Lasix as needed which is held currently Monitor for volume overload GERD PPI Hyperlipidemia On statin Diabetes Hold metformin Sliding scale We will monitor Chronic back pain Hold home pain medications IV Dilaudid as needed for now Restless leg syndrome On ropinirole History of COPD Chronic respiratory failure on 2 L oxygen Continue home inhalers Essential tremor On propranolol Hypertension On propranolol Will monitor History of lung cancer S/p radiation treatment in 01/2023 History of squamous cell carcinoma of anal canal Status post chemoradiation and diverting ileostomy in 2020 Tobacco abuse DVT prophylaxis SCDs for now Disposition Telemetry Full code. History of Present Illness Chief Complaint: Nausea and vomiting and confusion Primary Care Provider: Sukh Holman MD 68-year-old female with past medical history significant for type 2 diabetes, hyperlipidemia, history of COPD, supplemental oxygen dependent, chronic heart failure with preserved ejection fraction, hypertension, aortic valve sclerosis, atherosclerosis of both carotid arteries, GERD, fibromyalgia, restless leg syndrome, osteoporosis, essential tremor, migraine, cerebral atrophy, iron deficiency anemia, tobacco use disorder, history of lung cancer s/p radiation treatment 01/2023, history of squamous cell cancer of anal canal status post chemoradiation and diverting ileostomy 2020, chronic back pain comes because of persistent nausea and vomiting since last 2 to 3 days and also the vomitus was dark in color and on the ileostomy bag stools are also black color. Patient also thinks she is getting somewhat confused and not remembering things which prompted her to come to the ER. Denies any fevers. Has some chest discomfort. Has shortness of breath. Has abdominal pain. Has mild headache. No cough. Currently hemodynamics are okay.Patient can tell her name, knows she is in the hospital, knows current month but could not tell current year. Otherwise answering appropriately and able to give her history. Past medical history. As mentioned above Past surgical history. Anal fistula surgery. Breast biopsy. Colonoscopy. Destruction of anal lesions. Drainage of rectal abscess. Hemorrhoidectomy. Ileostomy. Injection of the lumbar's thoracic spine. Bilateral knee arthroscopy. Laparoscopic cholecystectomy. Excision of neck chest tumor. Nipple/areolar reconstruction. Repair of incisional hernia. Left arthroplasty interphalangeal. Bilateral shoulder surgery. Suspension of vagina. Trigger finger release. Total abdominal hysterectomy with removal of tubes. Social history. Smokes 0.5 pack a day for last 43 years. No alcohol use. No drug use. Family history. Mother had breast cancer. Lung cancer. Thyroid cancer. Father had diabetes. Son has rheumatoid arthritis. Paternal cousin has breast cancer. Paternal grandmother had arthritis. Allergies Allergy/AdvReac Type Severity Reaction Status Date / Time adhesive Allergy Intermediate SWELLING/RA Verified 12/24/23 01:19 Home Medications Medication Instructions Recorded Confirmed Type aspirin 81 mg tablet,delayed 81 mg PO QAM 02/26/19 12/24/23 History release atorvastatin 20 mg tablet 20 mg PO HS 02/26/19 12/24/23 History fluticasone propionate 50 2 spray intranasal QAM PRN Allergy 02/26/19 12/24/23 History mcg/actuation nasal Symptoms spray,suspension metformin 1,000 mg tablet 1,000 mg PO BIDM 02/26/19 12/24/23 History pantoprazole 40 mg tablet,delayed 40 mg PO QAM 02/26/19 12/24/23 History release (Protonix) trazodone 50 mg tablet 50 mg PO HS 02/26/19 12/24/23 History albuterol sulfate 90 mcg/actuation 2 puff inhalation Q4H PRN 03/31/19 12/24/23 History aerosol inhaler Shortness Of Breath Or Wheezing hydromorphone 4 mg tablet 4 mg PO Q4H PRN pain 07/27/19 12/24/23 History (Dilaudid) cyclobenzaprine 10 mg tablet 10 mg PO TID Muscle Spasm 11/17/19 12/24/23 History ondansetron HCl 8 mg tablet 8 mg PO Q8H PRN Nausea 05/29/20 12/24/23 History prochlorperazine maleate 10 mg 10 mg PO Q6H PRN Constipation 05/29/20 12/24/23 History tablet (Compazine) fluticasone fur. 200 mcg-umeclid 1 inh inhalation DAILY 03/02/22 12/24/23 History 62.5 mcg-vilant 25 mcg inhalat.powder (Trelegy Ellipta) propranolol 20 mg tablet 20 mg PO AMHS 03/02/22 12/24/23 History furosemide 40 mg tablet 40 mg PO DAILY PRN Edema 03/26/22 12/24/23 History morphine 15 mg tablet,extended 15 mg PO QAM 08/12/23 12/24/23 History release alendronate 70 mg tablet 70 mg PO WK 12/24/23 12/24/23 History bupropion HCl 300 mg 24 hr tablet, 300 mg PO QAM 12/24/23 12/24/23 History extended release gabapentin 300 mg capsule 300 mg PO TID 12/24/23 12/24/23 History nystatin 100,000 unit/gram topical 1 applic topical TID 12/24/23 12/24/23 History powder (Klayesta) ropinirole 6 mg tablet,extended 6 mg PO HS 12/24/23 12/24/23 History release 24 hr Past Med/Surg History Problem List (Updated 12/24/23 @ 07:47 by Leandro Contreras MD) GI bleed JOSEPHINE (acute kidney injury) (Acute) Hypokalemia (Acute) Hypomagnesemia (Acute) Acute hyponatremia (Acute) Acute GI bleeding (Acute) Acute exacerbation of chronic obstructive pulmonary disease (Acute) Acute respiratory failure with hypoxia and hypercarbia (Acute) Lactic acidosis Hypokalemia Hypotension Acute hypoxic respiratory failure Primary cancer of left upper lobe of lung (Chronic 11/26/22) Acute hyponatremia (Acute) Hypomagnesemia (Acute) Tachycardia JOSEPHINE (acute kidney injury) (Acute) Hyponatremia Hypomagnesemia Ileostomy present Hypoxia Essential tremor DVT prophylaxis Fibromyalgia Chronic back pain HLD (hyperlipidemia) COPD (chronic obstructive pulmonary disease) DM type 2 (diabetes mellitus, type 2) Parastomal hernia with obstruction and without gangrene (Acute) 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 Invasive, moderately differientiated, P-16 positive, Positive margin. s/p ileostomy, completed mitomycin x1 dose on 06/14/2019 and Xeloda along with radiation treatment between 06/09/2019-07/28/2019 Breast infection in female Hx of chronic left breast infections for 20 years Heart murmur Hyperlipemia Degenerative disc disease Constipation Bleeding hemorrhoids History of hemorrhoids Low back pain with right-sided sciatica multiple pain management injections with Dr. Archer Hip pain, chronic right Bursitis, scapulohumeral Surgical History S/P trigger finger release Status post trigger finger release History of shoulder surgery right 2009, ;left-2012. History of hernia repair History of breast surgery nipple areola reconstruction, s/p multiple infections History of neck surgery excision of lipoma-08/23/17 History of cholecystectomy 08/17/16 History of arthroscopy of right knee History of arthroplasty of left knee History of rectal abscess with I &D 05/05/19 History of colonoscopy 2010, 2016 History of breast biopsy 1994, 2001 History of hysterectomy age 37 History of hemorrhoidectomy 02/17/19 Family History Grandmother (Maternal) , in 60's Lung cancer Brother No problems noted. Sister No problems noted. Daughter No problems noted. Son No problems noted. 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 ENT- oropharynx clear Neck- supple, no JVD. Lungs- clear to auscultation no wheezing or crackles Heart- regular rate and rhythm; no murmur, no gallop. Abdomen- normal bowel sounds, soft, nontender, ileostomy bag seen with dark stools. Extremities- no pretibial edema, no erythema seen Neuro- alert, oriented PERRL, no facial palsy; no dysarthria; moves extremities. Results & Data Results & Data Vital Signs (Past 12 Hours) Vital Signs Temp Pulse Pulse Resp BP BP Pulse Ox 12/24/23 02:09 110 H 16 122/69 99 12/24/23 01:49 109 H 12/24/23 01:09 110 H 20 101/80 98 12/24/23 00:21 115 H 17 122/66 99 12/24/23 00:09 114 H 19 134/84 98 12/23/23 23:09 110 H 19 125/75 97 12/23/23 23:04 112 H 19 125/75 97 12/23/23 21:58 94 12/23/23 21:45 118 H 12/23/23 21:42 119 H 25 H 115/80 94 12/23/23 21:07 36.9 C 119 H 19 110/87 93 O2 Del Method 12/24/23 02:09 Room Air 12/24/23 01:49 12/24/23 01:09 Room Air 12/24/23 00:21 Room Air 12/24/23 00:09 Room Air 12/23/23 23:09 Room Air 12/23/23 23:04 Room Air 12/23/23 21:58 Room Air 12/23/23 21:45 12/23/23 21:42 Room Air 12/23/23 21:07 Room Air Diagnostic Findings Laboratory Results WBC 18.28 K/ul (4.8-10.8) H 12/23/23 21:48 RBC 4.71 M/uL (4.20-5.40) 12/23/23 21:48 Hgb 13.5 g/dl (12.0-16.0) 12/23/23 21:48 POC Hgb 13.9 g/dl (12.0-16.0) 12/23/23 22:18 Hct 38.9 % (37.0-47.0) 12/23/23 21:48 POC Hct 41 % (37-47) 12/23/23 22:18 MCV 82.6 fL (80.0-100.0) 12/23/23 21:48 MCH 28.7 pg (25.0-34.0) 12/23/23 21:48 MCHC 34.7 g/dL (32.0-36.0) 12/23/23 21:48 RDW Std Deviation 44.6 fL (36.4-46.3) 12/23/23 21:48 RDW Coeff of Chelle 14.7 % (11.5-14.5) H 12/23/23 21:48 Plt Count 334 K/uL (130-400) 12/23/23 21:48 MPV 9.1 fL (9.4-12.4) L 12/23/23 21:48 Immature Gran % (Auto) 1.3 % 12/23/23 21:48 Neut % (Auto) 89.4 % 12/23/23 21:48 Lymph % (Auto) 3.2 % 12/23/23 21:48 [place] % (Auto) 5.4 % 12/23/23 21:48 Eos % (Auto) 0.5 % 12/23/23 21:48 Baso % (Auto) 0.2 % 12/23/23 21:48 Neut # (Auto) 16.33 K/uL (1.40-6.50) H 12/23/23 21:48 Lymph # (Auto) 0.59 K/uL (1.20-3.40) L 12/23/23 21:48 Henderson # (Auto) 0.99 K/uL (0.11-0.59) H 12/23/23 21:48 Eos # (Auto) 0.10 K/uL (0.00-0.50) 12/23/23 21:48 Baso # (Auto) 0.03 K/uL (0.00-0.20) 12/23/23 21:48 Immature Gran # (Auto) 0.24 K/uL (0.01-0.20) H 12/23/23 21:48 Absolute Nucleated RBC 0.02 K/uL (0.00-0.12) 12/23/23 21:48 Nucleated RBC % (auto) 0.1 % 12/23/23 21:48 PT 11.5 Seconds (9.0-12.0) 12/23/23 21:48 INR 1.1 (0.9-1.1) 12/23/23 21:48 APTT 26 Seconds (21-31) 12/23/23 21:48 PTT Ratio 1.0 12/23/23 21:48 POC Sodium 129 mmol/L (135-144) L 12/23/23 22:18 Sodium 131 mmol/L (136-145) L 12/23/23 21:48 POC Potassium 2.8 mmol/L (3.3-5.0) L 12/23/23 22:18 Potassium 2.9 mmol/L (3.5-5.1) L 12/23/23 21:48 POC Chloride 89 mmol/L (101-112) L 12/23/23 22:18 Chloride 87 mmol/L (98-107) L 12/23/23 21:48 Carbon Dioxide 25 mmol/L (21-32) 12/23/23 21:48 POC Total CO2 26 mmol/L (24-31) 12/23/23 22:18 Anion Gap 19 (3-11) H 12/23/23 21:48 POC Anion Gap 18.0 mmol/L (16-25) 12/23/23 22:18 POC BUN 71 mg/dl (7-18) H 12/23/23 22:18 BUN 79 mg/dl (6-23) H 12/23/23 21:48 Creatinine 2.64 mg/dl (0.6-1.2) H 12/23/23 21:48 POC Creatinine 2.8 mg/dl (0.6-1.3) H 12/23/23 22:18 Est Cr Clr Drug Dosing 18.9 ml/min 12/23/23 21:48 Est GFR ( Amer) 20.7 ml/min 12/23/23 21:48 Est GFR (Non-Af Amer) 17.9 ml/min 12/23/23 21:48 BUN/Creatinine Ratio 29.9 (10-20) H 12/23/23 21:48 Glucose 196 mg/dl (70-99(Fasting)) H 12/23/23 21:48 POC Glucose 160 mg/dl (70-99) H 12/24/23 05:17 POC Glucose (other) 189 mg/dl (70-99) H 12/23/23 22:18 Osmolality 299 mOsm/kg (280-300) 12/23/23 21:48 Calcium 9.0 mg/dl (8.6-10.3) 12/23/23 21:48 POC Ioniz Calcium Uday 1.02 mmol/l (1.12-1.32) L 12/23/23 22:18 Magnesium 1.3 mg/dl (1.7-2.4) L 12/23/23 21:48 Total Bilirubin 1.0 mg/dl (0.2-1.0) 12/23/23 21:48 AST 13 U/L (13-39) 12/23/23 21:48 ALT 9 U/L (7-52) 12/23/23 21:48 Alkaline Phosphatase 50 U/L (34-104) 12/23/23 21:48 Troponin I High Sens 101.0 pg/ml (0-14) H* 12/23/23 23:47 Total Protein 7.1 gm/dl (6.0-8.3) 12/23/23 21:48 Albumin 4.5 gm/dl (3.4-5.0) 12/23/23 21:48 Globulin 2.6 gm/dl (2.5-4.0) 12/23/23 21:48 Albumin/Globulin Ratio 1.7 (0.9-2) 12/23/23 21:48 Urine Color Yellow 12/24/23 Unknown Urine Appearance Clear (Clear) 12/24/23 Unknown Urine pH 5.5 (4.5-7.5) 12/24/23 Unknown Ur Specific [place] 1.015 (1.000-1.030) 12/24/23 Unknown Urine Protein 1+ (Negative) H 12/24/23 Unknown Urine Glucose (UA) Negative (Negative) 12/24/23 Unknown Urine Ketones Trace (Negative) H 12/24/23 Unknown Urine Blood 1+ (Negative) H 12/24/23 Unknown Urine Nitrite Negative (Negative) 12/24/23 Unknown Urine Bilirubin Negative (Negative) 12/24/23 Unknown Urine Urobilinogen Negative (Negative) 12/24/23 Unknown Ur Leukocyte Esterase Negative (Negative) 12/24/23 Unknown Urine WBC (Auto) 0-5 /hpf (0-5) 12/24/23 Unknown Urine RBC (Auto) 0-2 /hpf (0-2) 12/24/23 Unknown U Hyaline Cast (Auto) 11-20 /lpf (0-2) H 12/24/23 Unknown U Epithel Cells (Auto) 0-2 /hpf (0-2) 12/24/23 Unknown Urine Bacteria (Auto) None Seen (None Seen) 12/24/23 Unknown Hyaline Casts Present /lpf (None Presnt) A 12/24/23 Unknown Urine Osmolality 458 mOsm/kg (500-800) L 12/24/23 Unknown SARS-CoV-2 (PCR) NEGATIVE (Negative) 12/23/23 21:45 Influenza Type A (PCR) Negative (Neg) 12/23/23 21:45 Influenza Type B (PCR) Negative (Neg) 12/23/23 21:45 RSV (RT-PCR) Negative (Neg) 12/23/23 21:45 Blood Type O Positive 12/23/23 23:47 Antibody Screen NEGATIVE 12/23/23 23:47 Impressions Abdomen/Pelvis CT 12/23/23 22:28 Exam(s): CT ABDOMEN + PELVIS Without Contrast EXAM: CT Abdomen and Pelvis Without Intravenous Contrast CLINICAL HISTORY: Reason for exam: GI bleed, abd pain. TECHNIQUE: Axial computed tomography images of the abdomen and pelvis without intravenous contrast. CTDI is 24.25 mGy and DLP is 1093.85 mGy-cm. Automated exposure control was utilized for the study. A dose lowering technique was utilized adhering to the principles of ALARA. COMPARISON: 03/02/2022. FINDINGS: Exam is limited due to lack of contrast material Lung bases: No consolidation. There is a calcification in the right lung base most compatible with old granulomatous disease. ABDOMEN: Liver: The liver is enlarged. There are small calcifications within the liver. There is a 1.2 cm lucency in the right lobe of the liver (series 2, image 26). Gallbladder and bile ducts: The patient is status post cholecystectomy.. No ductal dilation. Pancreas: The visualized portions of the pancreas, on this noncontrast study, are grossly unremarkable.. Spleen: No splenomegaly. There are small calcifications within the spleen. Adrenals: Heart is Kidneys and ureters: No obstructing stones. No hydronephrosis. Stomach and bowel: The stomach is distended containing fluid and air. The colon is relatively decompressed.. An ostomy site is noted in the right lower quadrant.. There is distended loops of air-filled small bowel. PELVIS: Appendix: Unremarkable CT scan appearance noted the appendix.. Bladder: Urinary bladder is distended. No bladder calculi are noted.. Reproductive: Patient appears to be status post hysterectomy.. ABDOMEN and PELVIS: Intraperitoneal space: No free air. No significant fluid collection. Bones/joints: There are marked degenerative changes in the spine.. Soft tissues: Unremarkable. Vasculature: There are atherosclerotic changes. No abdominal aortic aneurysm. Lymph nodes: No enlarged lymph nodes. IMPRESSION: Limited exam. An ostomy site is noted in the right lower quadrant.. There is distended loops of air-filled small bowel. This may represent an ileus. There is evidence for old granulomatous disease. 1.2 cm lucency in the right lobe of the liver may represent a cyst. Electronically signed by: Yusuf Lieberman MD 12/24/23 00:54 AM ECG Additional Comments: ECG. Sinus tachycardia rate of 116. No acute ST changes seen. Code Status & VTE Plan VTE Prophylaxis Plan VTE Prophylaxis will be ordered: Yes
[2023-12-24 03:54] LABS: Appearance Urine Clear (Clear); Bacteria Urine Automated None Seen (None Seen); Bilirubin Urine Negative (Negative); Blood Urine 1+ (Negative); Color Urine Yellow; Epithelial Cell Urine Auto 0-2 /hpf (0-2); Glucose Urine UA Negative (Negative); Hyaline Casts Urine Present /lpf (None Presnt); Ketones Urine Trace (Negative); Leukocyte Esterase Urine Negative (Negative); Nitrite Urine Negative (Negative); Protein Urine 1+ (Negative); RBC Urine Automated 0-2 /hpf (0-2); Specific Gravity Urine 1.015 (1.000-1.030); Urobilinogen Urine Negative (Negative); WBC Urine Automated 0-5 /hpf (0-5); pH Urine 5.5 (4.5-7.5)
--- OUTSIDE RECORDS SUMMARY | 2023-12-24 03:58 | External Medical Summary | Summary of Care ---
Author Name Unknown Organization [facility] Address [address] [place] [address] Phone [phone] Care Team Providers Care Fibre Technologist Name Role Phone Sukh Holman MD Primary Care Provider [phone] Reason for Visit * Reason Onset Date Comments Medication Refill 12/14/2023 Encounter Details Date Type Department Care Team (Late st Contact Info) Description 12/14/2023 Refill Hematology/Oncology [facility] [address] [facility] [place] [phone] Marciano Pagan MD [address] [facility] [place] [address] Anal squamous cell carcinoma (HCC) Allergies Active Allergy Reactions Criticality Noted Date Comments Adhesive Tape Itching,Rash 07/29/2016 Paper tape is fine documented as of this encounter (statuses as of 12/15/2023) Medications Medication Sig Dispensed Refills Start Date End Date Status Blood Glucose Monitoring Suppl (ONE TOUCH ULTRA SYSTEM KIT) W/DEVICE KITIndications:DM type 2 goal A1C below 7.5 Use up to four times a day as directed. Dx: 250.00 1 Kit 0 01/02/2015 Active aspirin 81 MG chewable tabletIndications :Type 2 diabetes mellitus with hemoglobin A1c goal of less than 7.5% (HCC) Take 1 Tab by mouth daily. with food. 100 Tab 5 12/18/2016 Active ONETOUCH DELICA LANCETS 33G MISC Tests up to four times a day. DX code: 250.00 100 Each 11 05/22/2019 Active OneTouch Ultra In Vitro Strip (Glucose Blood) USE UP TO 4 TIMES DAILY DIRECTED 400 Strip 4 08/25/2021 Active valACYclovir HCl 1 GM Oral Tablet (Valtrex) Take 2 Tablets by mouth in the morning and 2 Tablets before bedtime. for cold sores. 4 Tablet 11 06/29/2022 Active Albuterol Sulfate HFA 108 (90 Base) MCG/ACT Inhalation Aerosol SolutionIndicatio ns:Shortness of breath,Acute bronchospasm INHALE 2 PUFFS BY MOUTH EVERY 4 HOURS NEEDED FOR SORE THROAT OR WHEEZING. 18 g 5 04/15/2023 Active Propranolol HCl 20 MG Oral Tablet (Inderal)Indicati ons:Essential tremor TAKE 1 TABLET BY MOUTH IN THE MORNING AND BEFORE BEDTIME 180 Tablet 3 05/18/2023 Active Atorvastatin Calcium 20 MG Oral Tablet (Lipitor)Indicati ons:Dyslipidemia, goal LDL below 100 TAKE 1 TABLET BY MOUTH EVERY DAY 90 Tablet 3 06/06/2023 Active Fluticasone Propionate 50 MCG/ACT Nasal Suspension (Flonase)Indicati ons:Postnasal drip USE 2 SPRAY(S) IN EACH NOSTRIL ONCE DAILY 48 g 1 06/15/2023 Active Cyclobenzaprine HCl 10 MG Oral Tablet (Flexeril)Indicat ions:Spasm of muscle TAKE 1 TABLET BY MOUTH THREE TIMES A DAY 270 Tablet 3 06/15/2023 Active Fluticasone Propionate 50 MCG/ACT Nasal Suspension (Flonase)Indicati ons:Postnasal drip SPRAY 2 SPRAYS INTO EACH NOSTRIL ONCE DAILY 48 mL 5 06/15/2023 Active Additional Information Patient not taking.Reported on 06/29/2023 DULoxetine HCl 30 MG Oral Capsule Delayed Release Particles (Cymbalta)Indicat ions:Fibromyalgia TAKE 2 CAPSULES BY MOUTH IN THE MORNING 180 Capsule 3 07/06/2023 Active Cyanocobalamin 1000 MCG Oral Tablet (Cyanocobalamin)I ndications:Low serum vitamin B12 Take 1 Tablet by mouth in the morning. 90 Tablet 08/19/2023 Active Prochlorperazine Maleate 10 MG Oral Tablet (Compazine)Indica tions:Anal cancer (HCC) TAKE 1 TABLET BY MOUTH EVERY 6 HOURS NEEDED FOR NAUSEA 60 Tablet 2 08/19/2023 Active Trelegy Ellipta 200-62.5-25 MCG/ACT Aerosol Powder Breath Activated (Fluticasone-Umec lidinium-Vilanter ol) INHALE 1 PUFF BY MOUTH IN THE MORNING 180 Each 1 08/20/2023 Active rOPINIRole HCl ER 6 MG Oral Tablet Extended Release 24 Hour Take 6 mg by mouth at bedtime. 90 Tablet 3 08/23/2023 Active Lidocaine Viscous HCl 2 % Mouth/Throat Solution Swish and spit 15 mL 2 times a day as needed for Pain, Severe. 100 mL 08/23/2023 Active Alendronate Sodium 70 MG Oral Tablet (Fosamax)Indicati ons:weekly on sundays TAKE 1 TABLET (70 MG) BY MOUTH ONCE A WEEK 12 Tablet 1 09/14/2023 Active Furosemide 40 MG Oral Tablet (Lasix) Take 1 Tablet by mouth as needed for Other (swelling, fluid retention). 90 Tablet 3 09/20/2023 Active Meloxicam 15 MG Oral Tablet (Mobic)Indication s:Fibromyalgia TAKE 1 TABLET BY MOUTH EVERY DAY FOR PAIN 90 Tablet 1 10/08/2023 Active Morphine Sulfate ER 15 MG Oral Tablet Extended Release (Ms Contin)Indication s:Anal cancer (HCC),Anal squamous cell carcinoma (HCC) Take 1 Tablet by mouth in the morning and 1 Tablet before bedtime. Max 45 tablets/month.. 60 Tablet 10/21/2023 Active Ondansetron HCl 8 MG Oral Tablet (Zofran)Indicatio ns:Anal cancer (HCC) Take 1 Tablet by mouth every 8 hours as needed for Nausea. 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 1 Each 1 11/09/2023 Active Gabapentin 300 MG Oral Capsule (Neurontin) Take 1 Capsule by mouth in the morning and 1 Capsule at noon and 1 Capsule before bedtime. 90 Capsule 3 11/08/2023 Active buPROPion HCl ER (XL) 300 MG Oral Tablet Extended Release 24 Hour (Wellbutrin XL)Indications:Fi bromyalgia,Depres cam Take 1 Tablet by mouth in the morning. 90 Tablet 3 11/25/2023 Active Pantoprazole Sodium 40 MG Oral Tablet Delayed Release (Protonix)Indicat ions:Reflux esophagitis TAKE 1 TABLET BY MOUTH EVERY DAY IN THE MORNING 90 Tablet 1 12/08/2023 Active HYDROmorphone HCl 4 MG Oral Tablet (Dilaudid)Indicat ions:Anal squamous cell carcinoma (HCC) Take 1 Tablet by mouth every 4 hours as needed for Pain, Severe or Pain, Breakthrough. 30 Tablet 12/15/2023 Active HYDROmorphone HCl 4 MG Oral Tablet (Dilaudid)Indicat ions:Anal squamous cell carcinoma (HCC) Take 1 Tablet by mouth every 4 hours as needed for Pain, Severe or Pain, Breakthrough. 30 Tablet 2023 Discontinue d(Refill) documented as of this encounter (statuses as of 12/15/2023) Active Problems Problem Noted Date Diagnosed Date Chronic heart failure with preserved ejection fr action 09/07/2023 Supplemental oxygen dependent 08/23/2023 History of lung cancer 08/23/2023 History of anal cancer 08/23/2023 Type 2 diabetes mellitus wit h other diabetic kidney complication 05/11/2023 Cerebral atrophy 05/11/2023 Atherosclerosis of both carotid arteries 024 Overweight (BMI 25.0-29.9) 08/03/2022 Ileostomy present 03/06/2022 Aortic valve sclerosis 04/15/2021 [...] as of this encounter (statuses as of 12/15/2023) Resolved Problems Problem Noted Date Diagnosed Date Resolved Date Malignant neoplasm of upper lobe, left bronchus or lung 05/11/2023 08/23/2023 Anal squamous cell carcinoma 05/11/2023 08/23/2023 Atherosclerosis of aorta 05/11/2023 Primary malignant neoplasm o f left upper lobe of lung 12/21/2022 08/23/2023 Cancer Staging:Clinical stage from 12/21/2022:Stage IA2(cT1b, cN0, cM0) - Signed by London Quinn MD on 12/21/2022 History of squamous cell carcinoma 07/23/2022 08/23/2023 Overview: Anal Canal Medical home patient encounter 03/17/2022 08/23/2023 Hospital-acquired pneumonia 03/09/2022 03/16/2022 Caries 03/06/2022 03/16/2022 Dental abscess 03/06/2022 03/16/2022 Perianal abscess 03/06/2022 03/16/2022 Postoperative hemorrhage 03/06/202208/2021 Toothache 03/06/2022 03/16/2022 HLD (hyperlipidemia) 03/06/2022 022 Acute respiratory distress s yndrome (ARDS) due to severe acute respiratory syndrome coronavirus 2 (SARS-CoV-2) 03/04/2022 03/16/2022 Metabolic alkalosis 03/04/2022 03/16/20 22 Respiratory alkalosis 03/04/20222021 Hypochloremia 03/04/2022 03/16/2022 Hypophosphatemia [...] as of this encounter (statuses as of 12/15/2023) Immunizations Name Administration Dates Next Due COVID-19 mRNA, LNP-s, No Pre serve, 2-Dose Series (Telesocial) 10/03/2020,09/12/2020 H1N1 2009 Influenza, IM 05/03/2009 Hepatitis B, 20+ yrs 02/21/2013,09/11/2011,08/11 MMR - Measles/Mumps/Rubella Vaccine 09/05/2011 Meningococcal Conjugate Vacc ine (Menactra/Menveo) 11/14/2009 Pneumococcal Polysaccharide PPV23 (Pneumovax) 02/25/2021,03/04/1999 Seasonal Influenza, MDCK, Tr ivalent, PF, (Flucelvax) 02/21/2013 Seasonal Influenza, PF, 6 M & above, IM , (FluLaval or Fluzone) 01/27/2021,01/22/2020,01/17/2019,01/13 Seasonal Influenza, Quadriva lent Hd (Fluzone Hd) 01/08/2023,12/29/2021 Seasonal Influenza, Quadriva lent, No Preserve, IM 11/25/2016,01/06/2016,04/19/2015 Seasonal Influenza, Trivalen t, (IIV3), with Preserv, (Fluzone) 02/28/2014,02/04/2012,03/06/2011,02/20,01/14/2009 TDAP, Age 7 and older, IM (Adacel) 07/17/2011 Varicella Zoster Vaccine (Adult) 10/10/2015 Zoster [...] the money to buy more. Never true 08/16/19 24 Within the past 12 months, t he food you bought just didn't last and you didn't have money to get more. Never true 08/16/2023 Childcare Answer Date Recorded Do you feel overwhelmed with taking care of a child, family member or friend? No 08/16/2023 Does your family need help f inding childcare? (Household - for ages 0-17 years) Not on file 08/16/2023 Clothing Answer Date Recorded Have you been unable to get clothing when it was really needed? No 08/16/2023 Is your family able to get c lothes or diapers when needed? (Household - for ages 0-17 years) Not on file 08/16/2023 Personal Safety Answer Date Recorded Do you feel unsafe or have concerns for your saf ety? No 08/16/2023 Do you have concerns for you r family's safety? (Household - for ages 0-17 years) Not on file 08/16/2023 Utilities Answer Date Recorded Do you have trouble paying y our heating, water, or electric bill? No 08/16/2023 Is your family able to pay t he heat, water, or electric bill? (Household - for ages 0-17 years) Not on file 08/16/2023 Does your family have access to good internet? (Household - for ages 0-17 years) Not on file 08/16/2023 Employment Status Answer Date Recorded Are you unemployed or without regular income? No 08/16/2023 Does the household have a re gular source of income? (Household - for ages 0-17 years) Not on file 08/16/2023 Social Connections Answer Date Recorded How often do you feel lonely or isolated from th ose around you? Rarely 08/16/2023 Financial Resource Strain Answer Date R ecorded Do you have any trouble payi ng for your medications, or do you think you might in the future? No 08/16/2023 Does your family have troubl e paying for medicine? (Household - for ages 0-17 years) Not on file 08/16/2023 Transportation Needs Answer Date Record ed READ ONLY Do you have troubl e getting a ride to medical visits or work? Sometimes True 08/16/2023 Does your family have a hard time getting a ride to doctors visits? (Household - for ages 0-17 years) Not on file 08/16/2023 Has lack of transportation k ept you from medical appointments, meetings, work, or from getting things needed for daily living? Check all that apply. (Adult - for ages 18 years and over) Not on file 08/16/2023 Do you (or your family) have trouble finding or paying for a ride (transportation)? (Household - for ages 0-17 years) Not on file 08/16/2023 Housing Stability Answer Date Recorded Do you currently live in a s helter or have no steady place to sleep at night? No 08/16/2023 READ ONLY Do you think you a re at risk of becoming homeless? No 08/16/2023 Does your family worry about paying for your home or becoming homeless? (Household - for ages 0-17 years) Not on file 0 08/16/2023 Are you homeless or worried that you might be in the future? (Adult - for ages 18 years and over) Not on file Are you (or your family) samantha eless or worried that you might be in the future? (Household - for ages 0-17 years) Not on file Food Insecurity Answer Date Recorded Do you need food for this week? No 08/16/2023 Are you able to get enough f ood for your family? (Household - for ages 0-17 years) Not on file 08/16/2023 Does your family need food t his week? (Household - for ages 0-17 years) Not on file 08/16/2023 Do you always have enough fo od for your family? (Household - for ages 0-17 years) Not on file 08/16/2023 Sex and Gender Information Value Date Recorded [...] Telephone Encounter - Marciano Pagan MD - 12/15/2023 8:35 AM EDT E-prescribed hydromorphone. * Telephone Encounter - Nani Morel LPN - 12/15/2023 7:46 AM EDTPending Prescriptions: Disp Refills HYDROmorphone HCl 4 MG Oral Tablet (Dilaud*30 Tab*0 Sig: Take 1 Tablet by mouth every 4 hours as needed for Pain, Severe or Pain, Breakthrough. * Telephone Encounter - Nani Morel LPN - 12/15/2023 7:42 AM EDT Refill request for Hydromorphone Hcl 4 mg tabs pended below: Last Refill: 2023 PDMP: Last refilled 2023, #30, 5 day supply, no issue Last seen: 08/10/2023 Next Appt.: 02/09/2024 documented in this encounter Plan of Treatment Upcoming Encounters Date Type Department Care Team (Late st Contact Info) Description 12/29/2023 2:40 PM EDT Office Visit Family Practice [facility] [address] [place] [id number] Sukh Holman MD [address] [place] [id number] 02/02/2024 10:00 AM EDT Laboratory [facility] [address] [facility] [phone] [facility] [address] [facility] [place] [address] 02/09/2024 1:45 PM EDT Office Visit Hematology/Oncology [facility] [address] [place] [phone] Marciano Pagan MD [address] [facility] [place] [address] 02/24/2024 11:30 AM EST Office Visit Pharmacy, [facility] [address] [place] [address] [address] [facility] [place] [phone] 02/28/2024 2:00 PM EST Office Visit Cardiology, [facility] [address] [place] [address] Rosa Elena Ko PA-C [address] [place] [address] 05/11/2024 2:00 PM EST Office Visit Care at Home [address] [place], [place] [phone] Awa Hurd PA-C [address], [place] [id number] 08/23/2024 4:00 PM EDT Office Visit Family Practice [facility] [address] [place] [address] Sukh Holman MD [address] [place] [phone] Scheduled Procedures Name Priority Associated Diagnoses Date/Ti me COLONOSCOPY FLEXIBLE PROXIMAL DIAGNOSTIC Recall History of anal cancer Health Maintenance Due Date Last Done Comments DISCUSS TOBACCO CESSATION (REFER TO SMARTSET #3291) 1955 Alpha-1 Antitrypsin 11/29/1973 Cologuard 11/29/2000 Fecal Occult Blood Test 11/29/2000 Sigmoidoscopy 11/29/2000 Diabetic Eye Exam 01/21/2021 01/22/2020, , 01/10/2016, Additional history exists DTap/Tdap Vaccines (2 - Td or Tdap) 07/16/2021 07/17/2011, 05/11/2000 Pneumococcal Vaccine: 65+ Years (2 of 2 - PCV) 02/25/2022 02/25/2021, 03/04/1999 Diabetic Foot Exam 09/09/2022 09/09/2021, 0 05/28/2020, 03/21/2019, Additional history exists DXA Scan 05/13/2023 05/13/2021, 0204/2021, 06/14/2018, Additional history exists COVID-19 Vaccine ( season) 2023 01/28/2022, 09/12/2021, 04/09/2021, Additional history exists Influenza Vaccine (FLU shot) (#1) 2023 01/08/2023, 12/29/2021, 01/27/2021, Additional history exists HbA1c 02/18/2024 08/18/2023, 05/0 06/2022, 03/25/2022, Additional history exists Albumin/Creatinine Ratio 04/02/202404/02/2 023, 09/09/2021, 05/28/2020, Additional history exists Adult Wellness Visit 05/10/2024 05/10/2023 Depression Screening 06/23/2024 06/24/2023 B-12 08/17/2024 08/18/2023, 03/12, 02/25/2021, Additional history exists O2 ASSESSMENT COMPLETED IN PAST YEAR FOR COPD 08/22/2024 08/23/2023 GFR 08/30/2024 08/31/2023, 08/10, 06/29/2023, Additional history exists Mammogram 08/30/2024 08/31/2023, 08/10, 08/19/2022, Additional history exists Colonoscopy 08/23/2025 08/23/2020, 08/10, 06/24/2016, Additional history exists Colorectal Cancer Screening 08/23/2025 MENINGOCOCCAL (MENACTRA/MENVEO) Aged Out 11/14/2009, 11/14/2009 No longer eligibl e based on patient's age to complete this topic Hepatitis B Vaccine Completed 02/21/2013, 09/11/2011, 08/12/2011 VITAMIN D LEVEL ONCE IN A LIFETIME-USE SMARTSET# 30719 Completed 01/23/2019, 08/10/2017, 07/06/2016, Additional history exists Zoster Vaccines Completed 01/22/2020, 04/13, 10/10/2015 RETIRED - COLONOSCOPY-EVERY 5 YRS AGES 18-100 Discontinued 08/23/2020, 08/23/2020, 06/24/2016, Additional history exists HPV (Gardasil) Vaccine Aged Out No lo nger eligible based on patient's age to complete this topic documented as of this encounter Medical Devices Implanted Type Area Svp Marketing Device Identifier Shelf Expiration Date Model / Serial / Lot Headless Compression Screw Implanted:Qty: 1 on 07/26/2020 by South Mtz MD at OR [facility] Left: Finger [id number] H / / Description:left middle fing er Ascesion Silicone Pip Finger Implant Implanted:Qty: 1 on 07/26/2020 by South Mtz MD at OR [facility] Left: Finger 06/09/2022 [id number] / / [id number] Description:middle finger documented as of this encounter Visit Diagnoses Diagnosis Anal squamous cell carcinoma (HCC) Malignant neoplasm of anus, unspecified site documented in this encounter Advance Directives * Full Code (Latest Code Status on File) Date Activated Date Inactivated Comments 03/02/2022 10:56 PM 03/16/2022 10:25 PM Question Answer Comments Discussion of Advance Directives occurred with: Patient * Full Code Date Activated Date Inactivated Comments 07/30/2021 10:43 AM 07/30/2021 7:11 PM Question Answer Comments Discussion of Advance Directives occurred with: Not Discussed Does the patient have a Living Will? No Does the patient have Health Care Power of Attor mariely? No * Full Code Date Activated Date Inactivated Comments 12/09/2020 5:24 PM 12/11/2020 6:33 PM Question Answer Comments Discussion of Advance Directives occurred with: Not Discussed * Full Code Date Activated Date Inactivated Comments 09/30/2020 10:25 AM 10/02/2020 4:27 PM This order reflects the patients wishes and were consensually agreed upon. Question Answer Comments Discussion of Advance Directives occurred with: Not Discussed Does the patient have a Living Will? No Does the patient have Health Care Power of Attor mariely? No * Full Code Date Activated Date Inactivated Comments 02/17/2019 10:07 AM 02/17/2019 4:30 PM This order reflects the patients wishes and were consensually agreed upon. Care Teams Fibre Technologist Relationship Specialty Start Date End Date Sukh Holman MD [address] [place] [id number] PCP - General Family Medicine 07/26/20 documented as of this encounter
--- OUTSIDE RECORDS SUMMARY | 2023-12-24 03:59 | External Medical Summary | Summary of Care ---
Author Name Unknown Organization [facility] Address [address] [place] [address] Phone [phone] Care Team Providers Care Flour Mixer Name Role Phone Sukh Holman MD Primary Care Provider [phone] Reason for Visit * Reason Onset Date Comments Medication Question 11/25/2023 Encounter Details Date Type Department Care Team (Late st Contact Info) Description 11/25/2023 Telephone Pharmacy, [facility] 132 [facility] [place] [address] Guillermina Marquez, [facility] [address] Medication Question Allergies Active Allergy Reactions Criticality Noted Date Comments Adhesive Tape Itching,Rash 07/29/2016 Paper tape is fine documented as of this encounter (statuses as of 2023) Medications Medication Sig Dispensed Refills Start Date End Date Status Blood Glucose Monitoring Suppl (ONE TOUCH ULTRA SYSTEM KIT) W/DEVICE KITIndications:DM type 2 goal A1C below 7.5 Use up to four times a day as directed. Dx: 250.00 1 Kit 0 5 Active aspirin 81 MG chewable tabletIndications :Type 2 diabetes mellitus with hemoglobin A1c goal of less than 7.5% ([facility]) Take 1 Tab by mouth daily. with food. 100 Tab 5 7 Active ONETOUCH DELICA LANCETS 33G MISC Tests up to four times a day. DX code: 250.00 100 Each 11 0 Active OneTouch Ultra In Vitro Strip (Glucose Blood) USE UP TO 4 TIMES DAILY DIRECTED 400 Strip 4 2 Active valACYclovir HCl 1 GM Oral Tablet (Valtrex) Take 2 Tablets by mouth in the morning and 2 Tablets before bedtime. for cold sores. 4 Tablet 11 3 Active Albuterol Sulfate HFA 108 (90 Base) MCG/ACT Inhalation Aerosol SolutionIndicatio ns:Shortness of breath,Acute bronchospasm INHALE 2 PUFFS BY MOUTH EVERY 4 HOURS NEEDED FOR SORE THROAT OR WHEEZING. 18 g 5 4 Active Propranolol HCl 20 MG Oral [...] ONCE DAILY 48 g 1 4 Active Cyclobenzaprine HCl 10 MG Oral [...] THE MORNING 180 Capsule 3 4 Active Cyanocobalamin 1000 MCG Oral Tablet (Cyanocobalamin)I ndications:Low serum vitamin B12 Take 1 Tablet by mouth in the morning. 90 Tablet 4 Active Prochlorperazine Maleate 10 MG Oral Tablet (Compazine)Indica tions:Anal cancer (HCC) TAKE 1 TABLET BY MOUTH EVERY 6 HOURS NEEDED FOR NAUSEA 60 Tablet 2 4 Active Trelegy Ellipta 200-62.5-25 MCG/ACT Aerosol Powder Breath Activated (Fluticasone-Umec lidinium-Vilanter ol) INHALE 1 PUFF BY MOUTH IN THE MORNING 180 Each 1 4 Active rOPINIRole HCl ER 6 MG Oral Tablet Extended Release 24 Hour Take 6 mg by mouth at bedtime. 90 Tablet 3 4 Active Lidocaine Viscous HCl 2 % Mouth/Throat Solution Swish and spit 15 mL 2 times a day as needed for Pain, Severe. 100 mL 4 Active Alendronate Sodium 70 MG Oral Tablet (Fosamax)Indicati ons:weekly on sundays TAKE 1 TABLET (70 MG) BY MOUTH ONCE A WEEK 12 Tablet 1 4 Active Furosemide 40 MG Oral Tablet (Lasix) Take 1 Tablet by mouth as needed for Other (swelling, fluid retention). 90 Tablet 3 4 Active Meloxicam 15 MG Oral Tablet (Mobic)Indication s:Fibromyalgia TAKE 1 TABLET BY MOUTH EVERY DAY FOR PAIN 90 Tablet 1 4 Active Morphine Sulfate ER 15 MG Oral Tablet Extended Release (Ms Contin)Indication s:Anal cancer (HCC),Anal squamous cell carcinoma (HCC) Take 1 Tablet by mouth in the morning and 1 Tablet before bedtime. Max 45 tablets/month.. 60 Tablet 4 Active Ondansetron HCl 8 MG Oral Tablet (Zofran)Indicatio ns:Anal cancer (HCC) Take 1 Tablet by mouth every 8 hours as needed for Nausea. 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 1 Each 1 4 Active Gabapentin 300 MG Oral Capsule (Neurontin) Take 1 Capsule by mouth in the morning and 1 Capsule at noon and 1 Capsule before bedtime. 90 Capsule 3 4 Active HYDROmorphone HCl 4 MG Oral Tablet (Dilaudid)Indicat ions:Anal squamous cell carcinoma (HCC) Take 1 Tablet by mouth every 4 hours as needed for Pain, Severe or Pain, Breakthrough. 30 Tablet 4 Active buPROPion HCl ER (XL) 300 MG Oral Tablet Extended Release 24 Hour (Wellbutrin XL)Indications:Fi bromyalgia,Depres cam Take 1 Tablet by mouth in the morning. 90 Tablet 3 4 Active buPROPion HCl ER (XL) 150 MG Oral Tablet Extended Release 24 Hour (Wellbutrin XL)Indications:Fi bromyalgia,Depres cam TAKE 1 TABLET BY MOUTH EVERY DAY 90 Tablet 1 4 11/25/19 24 Discontinued documented as of this encounter (statuses as of 2023) Active Problems Problem Noted Date Diagnosed Date [...] as of this encounter (statuses as of 2023) Resolved Problems Problem Noted Date Diagnosed Date [...] as of this encounter (statuses as of 2023) Immunizations Name Administration Dates Next Due COVID-19 mRNA, LNP-s, No Pre serve, 2-Dose Series (PerioSeal) 10/03/2020,09/12/2020 H1N1 2009 Influenza, IM 05/03/2009 Hepatitis [...] Split, I IV3, With Preserve, Inj 02/28/2014,02/04/2012,03/06/2011,02/20,01/14/2009 TDAP, Age 7 and older, IM [...] No 08/16/2023 Does the household have a [facility] hospitallar source of income? (Household - for ages [...] encounter Miscellaneous Notes * Telephone Encounter - Sukh Holman MD - 11/25/2023 1:20 PM EDT Increase wellbutrin from 150 to 300 daily. Can use two a day of the current script she has, but [id number] mg dose was sent to [facility] today. * Telephone Encounter - Guillermina Marquez [facility] - 11/25/2023 12:10 PM EDT Jer, Patient seen in [facility] Pain today. Patient notes feels like depression symptoms are occurring despite medication. Wondering if any changes could be made for better control? Thank you, Guillermina Marquez, Pharm D, [facility] 11/25/2023, 12:11 PM Electronically signed by Guillermina Marquez [facility] at 11/25/2023 12:11 PM EDT documented in this encounter Plan of Treatment Upcoming Encounters Date Type Department Care Team (Late st Contact Info) Description 12/29/2023 2:40 PM EDT Office Visit Family Practice [facility] [address] [place] [address] Sukh Holman MD [address] [place] [address] 02/02/2024 10:00 AM EDT Laboratory [facility] [address] [place] [address] [facility] [address] [place] [facility] [place] [address] 02/09/2024 1:45 PM EDT Office Visit Hematology/Oncology [facility] [address] [place] [address] [place] [address] Marciano Pagan MD 200 [facility] [place] [address] 02/24/2024 11:30 AM EST Office Visit Pharmacy, [facility] [address] [place] [address] [facility] [place] [address] 02/28/2024 2:00 PM EST Office Visit Cardiology, [facility] [place] [address] Rosa Elena Ko PA-C 132 [facility] [place] [address] 05/11/2024 2:00 PM EST Office Visit Care at Home [address] [place], [place] [phone] Awa Hurd PA-C [address] [place], [place] [phone] 08/23/2024 4:00 PM EDT Office Visit Family Practice [facility] [place] [address] Sukh Holman MD [address] [place] [address] Scheduled Procedures Name Priority Associated Diagnoses Date/Ti me COLONOSCOPY FLEXIBLE PROXIMAL DIAGNOSTIC Recall History of anal cancer Health Maintenance Due Date Last Done Comments DISCUSS TOBACCO CESSATION (REFER TO SMARTSET #9505) 1955 Alpha-1 Antitrypsin 11/29/1973 Cologuard 11/29/2000 Fecal [...] 2022 01/28/2022, 09/12/2021, 04/09/2021, Additional history exists DXA Scan 05/13/2023 05/13/2021, 0204/2021, 06/14/2018, Additional history exists Influenza Vaccine (FLU shot) (#1) 2023 01/08/2023, 12/29/2021, 01/27/2021, Additional history exists HbA1c 02/18/2024 08/18/2023, 05/0 06/2022, 03/25/2022, Additional history exists Albumin/Creatinine Ratio 04/02/2024 023, 09/09/2021, 05/28/2020, Additional history exists Adult [...] D LEVEL ONCE IN A LIFETIME-USE SMARTSET# 91531 Completed 01/23/2019, 08/10/2017, 07/06/2016, Additional history exists Zoster Vaccines Completed 01/22/2020, 04/13, 10/10/2015 RETIRED - COLONOSCOPY-EVERY 5 YRS AGES 18-100 Discontinued 08/23/2020, 08/23/2020, 06/24/2016, Additional history exists HPV (Gardasil) Vaccine Aged Out No lo nger eligible based on patient's age to complete this topic documented as of this encounter Medical Devices Implanted Type Area Decay Control Operator Device Identifier Shelf Expiration Date Model / Serial / Lot Headless Compression Screw Implanted:Qty: 1 on 07/26/2020 by South Mtz MD at OR [facility] Left: Finger AR-8725-24 H / / Description:left middle fing er Ascesion Silicone Pip Finger Implant Implanted:Qty: 1 on 07/26/2020 by South Mtz MD at OR [facility] Left: Finger 06/09/2022 [id number] / / [id number] Description:middle finger documented as of this encounter Visit Diagnoses Diagnosis Fibromyalgia Mylagia and myositis, unspecified Depression Depressive disorder, not elsewhere classified documented in this encounter Advance Directives * [...] and were consensually agreed upon. Care Teams Flour Mixer Relationship Specialty Start Date End Date Sukh Holman MD [address] [place] [address] PCP - General Family Medicine 07/26/20 documented as of this encounter
--- OUTSIDE RECORDS SUMMARY | 2023-12-24 03:59 | External Medical Summary | Summary of Care ---
Author Name Unknown Organization [facility] Address [address] [place] [address] Phone [phone] Care Team Providers Care Rodeo Clown Name Role Phone Sukh Holman MD Primary Care Provider [phone] Reason for Visit * Reason Onset Date Comments Medication Refill 2023 Encounter Details Date Type Department Care Team (Late st Contact Info) Description 2023 Refill Family Practice [facility] [address] [facility] [place] [address] Sukh Holman MD [address] [facility] [place] [address] Fibromyalgia Allergies Active Allergy Reactions Criticality Noted Date Comments Adhesive Tape Itching,Rash 07/29/2016 Paper tape is fine documented as of this encounter (statuses as of 12/02/2023) Medications Medication Sig Dispensed Refills Start Date End Date Status Blood Glucose Monitoring Suppl (ONE TOUCH ULTRA SYSTEM KIT) W/DEVICE KITIndications:DM type 2 goal A1C below 7.5 Use up to four times a day as directed. Dx: 250.00 1 Kit 0 01/02/2015 Active aspirin 81 MG chewable tabletIndications:T ype 2 diabetes mellitus with hemoglobin A1c goal of less than 7.5% ([facility]) Take 1 Tab by mouth daily. [...] 07/06/2023 Active Cyanocobalamin 1000 MCG Oral Tablet (Cyanocobalamin)Ind ications:Low serum vitamin B12 Take 1 Tablet by [...] 09/20/2023 Active Meloxicam 15 MG Oral Tablet (Mobic)Indications: Fibromyalgia TAKE 1 TABLET BY MOUTH EVERY [...] Extended Release 24 Hour (Wellbutrin XL)Indications:Fibr omyalgia,Depression Take 1 Tablet by mouth in the morning. 90 Tablet 3 11/25/2023 Active HYDROmorphone HCl 4 MG Oral Tablet (Dilaudid)Indicatio ns:Anal squamous cell carcinoma (HCC) Take 1 Tablet by mouth every 4 hours as needed for Pain, Severe or Pain, Breakthrough. 30 Tablet 2023 Active documented as of this encounter (statuses as of 12/02/2023) Active Problems Problem Noted Date Diagnosed Date [...] as of this encounter (statuses as of 12/02/2023) Resolved Problems Problem Noted Date Diagnosed Date [...] as of this encounter (statuses as of 12/02/2023) Immunizations Name Administration Dates Next Due COVID-19 mRNA, LNP-s, No Pre serve, 2-Dose Series (G[employer]ags) 10/03/2020,09/12/2020 H1N1 2009 Influenza, IM 05/03/2009 Hepatitis [...] Miscellaneous Notes * Telephone Encounter - Anupam Gill RPh - 12/02/2023 8:14 AM EDT Refused Prescriptions: Disp Refills DULoxetine HCl 30 MG Oral Capsule Delayed *180 Ca*3 Sig: Take 2Capsules by mouth in the morning.Refused By: ANUPAM GILL for Refusal: Too soon----- documented in this encounter Plan of Treatment Upcoming Encounters Date Type Department Care Team (Late st Contact Info) Description 12/29/2023 2:40 PM EDT Office Visit Family Practice [facility] [address] [place] [address] [address] Sukh Holman MD [address] [place] [address] 02/02/2024 10:00 AM EDT Laboratory Laboratory [facility] [place] [address] [place] [address] 02/09/2024 1:45 PM EDT Office Visit Hematology/Oncology [facility] 200 [facility] [place] [address] Marciano Pagan MD 200 [facility] [place] [address] 02/24/2024 11:30 AM EST Office Visit Pharmacy, [facility] [address] [address] [facility] [address] [place] [address] 02/28/2024 2:00 PM EST Office Visit Cardiology, [facility] [address] [place] [address] [address] Rosa Elena Ko PA-C [address] [place] [address] 05/11/2024 2:00 PM EST Office Visit Care at Home [address] [facility] [place] [address] Awa Hurd PA-C [address] [facility] [place] [address] 08/23/2024 4:00 PM EDT Office Visit Family Practice [facility] [address] [place] [address] Sukh Holman MD [address] [place] [address] Scheduled Procedures Name Priority Associated Diagnoses Date/Ti me COLONOSCOPY FLEXIBLE PROXIMAL DIAGNOSTIC Recall History of anal cancer Health Maintenance Due Date Last Done Comments DISCUSS TOBACCO CESSATION (REFER TO SMARTSET #3846) 1955 Alpha-1 Antitrypsin 11/29/1973 Cologuard 11/29/2000 Fecal [...] 05/13/2023 05/13/2021, 02/04/2021, 06/14/2018, Additional history exists Influenza Vaccine (FLU shot) (#1) 2023 01/08/2023, 12/29/2021, 01/27/2021, Additional history exists HbA1c 02/18/2024 08/18/2023, 050 06/2022, 03/25/2022, Additional history exists Albumin/Creatinine Ratio [...] D LEVEL ONCE IN A LIFETIME-USE SMARTSET# 33501 Completed 01/23/2019, 08/10/2017, 07/06/2016, Additional history exists Zoster Vaccines Completed 01/22/2020, 04/13, 10/10/2015 RETIRED - COLONOSCOPY-EVERY 5 YRS AGES 18-100 Discontinued 08/23/2020, 08/23/2020, 06/24/2016, Additional history exists HPV (Gardasil) Vaccine Aged Out No lo nger eligible based on patient's age to complete this topic documented as of this encounter Medical Devices Implanted Type Area Network Systems Consultant Device Identifier Shelf Expiration Date Model / Serial / Lot Headless Compression Screw Implanted:Qty: 1 on 07/26/2020 by South Mtz MD at OR [facility] Left: Finger AR-8725-24 H / / Description:left middle fing er Ascesion Silicone Pip Finger Implant Implanted:Qty: 1 on 07/26/2020 by South Mtz MD at OR [facility] Left: Finger 06/09/2022 [id number]-520-1 -[id number] / / [id number] Description:middle finger documented as of this encounter Visit Diagnoses Diagnosis Fibromyalgia Mylagia and myositis, unspecified documented in this encounter Advance Directives * [...] and were consensually agreed upon. Care Teams Rodeo Clown Relationship Specialty Start Date End Date Sukh Holman MD [address] [place] [address] PCP - General Family Medicine 07/26/20 documented as of this encounter
--- OUTSIDE RECORDS SUMMARY | 2023-12-24 03:59 | External Medical Summary | Summary of Care ---
Author Name Unknown Organization [facility] Address [address] [place] [address] Phone [phone] Care Team Providers Care Feed Mixer Helper Name Role Phone Sukh Holman MD Primary Care Provider [phone] Reason for Visit * Reason Onset Date Comments Medication Refill 2023 Encounter Details Date Type Department Care Team (Late st Contact Info) Description 2023 Refill Hematology/Oncology [facility] 200 [facility] [place] [id number] Marciano Pagan MD 200 [facility] [place] [address] Anal squamous cell carcinoma (HCC) Allergies Active [...] or Pain, Breakthrough. 30 Tablet 2023 Active HYDROmorphone HCl 4 MG Oral Tablet (Dilaudid)Indicat ions:Anal squamous cell carcinoma (HCC) Take 1 Tablet by mouth every 4 hours as needed for Pain, Severe or Pain, Breakthrough. 30 Tablet 11/22/2023 Discontinue d(Refill) documented as of this encounter [...] mRNA, LNP-s, No Pre serve, 2-Dose Series ([email or web address]) 10/03/2020,09/12/2020 H1N1 2009 Influenza, IM 05/03/2009 Hepatitis [...] Telephone Encounter - Marciano Pagan MD - 2023 3:59 PM EDT E-prescribed hydromorphone. * Telephone Encounter - Nani Morel LPN - 2023 3:39 PM EDTPending Prescriptions: Disp Refills HYDROmorphone HCl 4 MG Oral Tablet (Dilaud*30 Tab*0 Sig: Take 1 Tablet by mouth every 4 hours as needed for Pain, Severe or Pain, Breakthrough. * Telephone Encounter - Nani Morel LPN - 2023 3:37 PM EDT Refill request for Hydromorphone Hcl 4 mg tabs pended below: Last Refill:11/22/2023 PDMP search: No issues, last refill 11/22/2023, #30, for 5 day supply Script pended below documented in this encounter Plan of Treatment Upcoming Encounters Date Type Department Care Team (Late st Contact Info) Description 12/29/2023 2:40 PM EDT Office Visit Family Practice [facility] [address] [place] [address] [address] Sukh Holman MD [address] [place] [address] 02/02/2024 10:00 AM EDT Laboratory Laboratory [facility] [address] [place] [address] Cecilia Mayen 200 [facility] [place] [address] 02/09/2024 1:45 PM EDT Office Visit Hematology/Oncology [facility] 200 [facility] [place] [phone] Marciano Pagan MD 200 [facility] [place] [address] 02/24/2024 11:30 AM EST Office Visit Pharmacy, [facility] [address] [place] [address] [facility] [address] [place] [address] 02/28/2024 2:00 PM EST Office Visit Cardiology, [facility] [address] [place] [address] Rosa Elena Ko PA-C [address] [place] [address] 05/11/2024 2:00 PM EST Office Visit Care at Home [address] [place], [place] [phone] wAa Hurd PA-C [address] [place] [address] 08/23/2024 4:00 PM EDT Office Visit Family Practice [facility] [address] [place] [address] Sukh Holman MD [address] [place] [address] Scheduled Procedures Name Priority Associated Diagnoses Date/Ti [...] Additional history exists DXA Scan 05/13/2023 05/13/2021, 02/0 04/2021, 06/14/2018, Additional history exists Influenza Vaccine (FLU [...] D LEVEL ONCE IN A LIFETIME-USE SMARTSET# [id number] Completed 01/23/2019, 08/10/2017, 07/06/2016, Additional history exists Zoster Vaccines Completed 01/22/2020, 04/13, 10/10/2015 RETIRED - COLONOSCOPY-EVERY 5 YRS AGES 18-100 Discontinued 08/23/2020, 08/23/2020, 06/24/2016, Additional history exists HPV (Gardasil) Vaccine Aged Out No lo nger eligible based on patient's age to complete this topic documented as of this encounter Medical Devices Implanted Type Area Blender / Cook Device Identifier Shelf Expiration Date Model / Serial / Lot Headless Compression Screw Implanted:Qty: 1 on 07/26/2020 by South Mtz MD at OR [facility] Left: Finger AR-[id number] H / / Description:left middle fing er Ascesion Silicone Pip Finger Implant Implanted:Qty: 1 on 07/26/2020 by South Mtz MD at [facility] Left: Finger 06/09/2022 [id number]-520-1 -[id number] / / [id number] Description:middle finger documented as of this encounter [...] and were consensually agreed upon. Care Teams Feed Mixer Helper Relationship Specialty Start Date End Date Sukh Holman MD 132 [facility] [place] [address] PCP - General Family Medicine 07/26/20 documented as of this encounter
--- OUTSIDE RECORDS SUMMARY | 2023-12-24 03:59 | External Medical Summary | Summary of Care ---
Author Name Unknown Organization [facility] Address [address] [place] [address] Phone [phone] Care Team Providers Care Benzene Still Utility Operator Name Role Phone Rigo Holman MD Primary Care Provider [phone] Reason for Visit * Reason Comments eRx-Medication Refill Encounter Details Date Type Department Care Team (Late st Contact Info) Description 12/07/2023 Refill Family Practice [facility] [address] [facility] [place] [address] Rigo Holman MD [address] [facility] [address] Reflux esophagitis Allergies Active Allergy Reactions Criticality Noted Date Comments Adhesive Tape Itching,Rash 07/29/2016 Paper tape is fine documented as of this encounter (statuses as of 12/08/2023) Medications Medication Sig Dispensed Refills Start Date [...] A DAY 270 Tablet 3 4 Active Fluticasone Propionate 50 [...] before bedtime. 90 Capsule 3 4 Active buPROPion HCl ER (XL) 300 MG Oral Tablet Extended Release 24 Hour (Wellbutrin XL)Indications:Fi bromyalgia,Depres cam Take 1 Tablet by mouth in the morning. 90 Tablet 3 4 Active HYDROmorphone HCl 4 MG Oral Tablet (Dilaudid)Indicat ions:Anal squamous cell carcinoma (HCC) Take 1 Tablet by mouth every 4 hours as needed for Pain, Severe or Pain, Breakthrough. 30 Tablet 4 Active Pantoprazole Sodium 40 MG Oral Tablet Delayed Release (Protonix)Indicat ions:Reflux esophagitis TAKE 1 TABLET BY MOUTH EVERY DAY IN THE MORNING 90 Tablet 1 4 Active Pantoprazole Sodium 40 MG Oral Tablet Delayed Release (Protonix)Indicat ions:Reflux esophagitis TAKE 1 TABLET BY MOUTH EVERY DAY IN THE MORNING 90 Tablet 1 4 12/08/19 24 Discontinued documented as of this encounter (statuses as of 12/08/2023) Active Problems Problem Noted Date Diagnosed Date [...] as of this encounter (statuses as of 12/08/2023) Resolved Problems Problem Noted Date Diagnosed Date [...] as of this encounter (statuses as of 12/08/2023) Immunizations Name Administration Dates Next Due COVID-19 mRNA, LNP-s, No Pre serve, 2-Dose Series (We[employer]) 10/03/2020,09/12/2020 H1N1 2009 Influenza, IM 05/03/2009 Hepatitis [...] encounter Miscellaneous Notes * Telephone Encounter - Itzel Lechuga [facility] - 12/08/2023 3:13 PM EDT Signed Prescriptions: Disp Refills Pantoprazole Sodium 40 MG Oral Tablet Rosa*90 Tab*1 Sig: TAKE 1 TABLET BY MOUTH EVERY DAY IN THE MORNINGAuthorizing Provider: RIGO HOLMAN User: ITZEL LECHUGA documented in this encounter Plan of Treatment Upcoming Encounters Date Type Department Care Team (Late st Contact Info) Description 12/29/2023 2:40 PM EDT Office Visit Family Practice [facility] 132 [facility] [place] [address] Rigo Holman MD 132 [facility] [place] [address] 02/02/2024 10:00 AM EDT Laboratory Laboratory [facility] [address] [place] [phone] [place] [address] 02/09/2024 1:45 PM EDT Office Visit Hematology/Oncology [facility] [address] [place] [phone] Marciano Pagan MD 200 [place] [address] 02/24/2024 11:30 AM EST Office Visit Pharmacy, [facility] [address] [place] [address] [facility] [place] [address] 02/28/2024 2:00 PM EST Office Visit Cardiology, [facility] 132 [facility] [place] [address] Rosa Elena Ko PA-C [facility] [place] [address] 05/11/2024 2:00 PM EST Office Visit Care at Home [address] [place], [place] [phone] Awa Hurd PA-C [address] [place] [address] 08/23/2024 4:00 PM EDT Office Visit Family Practice [facility] 132 [facility] [place] [address] Rigo Holman MD 132 [facility] [place] [address] Scheduled Procedures Name Priority Associated Diagnoses Date/Ti me COLONOSCOPY FLEXIBLE PROXIMAL DIAGNOSTIC Recall History of anal cancer Health Maintenance Due Date Last Done Comments DISCUSS TOBACCO CESSATION (REFER TO SMARTSET #5293) 1955 Alpha-1 Antitrypsin 11/29/1973 Cologuard 11/29/2000 Fecal [...] D LEVEL ONCE IN A LIFETIME-USE SMARTSET# 60219 Completed 01/23/2019, 08/10/2017, 07/06/2016, Additional history exists Zoster Vaccines Completed 01/22/2020, 04/13, 10/10/2015 RETIRED - COLONOSCOPY-EVERY 5 YRS AGES 18-100 Discontinued 08/23/2020, 08/23/2020, 06/24/2016, Additional history exists HPV (Gardasil) Vaccine Aged Out No lo nger eligible based on patient's age to complete this topic documented as of this encounter Medical Devices Implanted Type Area Lithographic Plate Maker Apprentice Device Identifier Shelf Expiration Date Model / Serial / Lot Headless Compression Screw Implanted:Qty: 1 on 07/26/2020 by South Mtz MD at OR [facility] Left: Finger AR-8725-24 H / / Description:left middle fing er Ascesion Silicone Pip Finger Implant Implanted:Qty: 1 on 07/26/2020 by South Mtz MD at OR [facility] Left: Finger 06/09/2022 [id number]-520-1 -[id number] / / [id number] Description:middle finger documented as of this encounter Visit Diagnoses Diagnosis Reflux esophagitis documented in this encounter Advance Directives * [...] and were consensually agreed upon. Care Teams Benzene Still Utility Operator Relationship Specialty Start Date End Date Rigo Holman MD [address] [place] [address] PCP - General Family Medicine 07/26/20 documented as of this encounter
--- OUTSIDE RECORDS SUMMARY | 2023-12-24 03:59 | External Medical Summary | Summary of Care ---
Author Name Unknown Organization [facility] Address [address] [place] [address] Phone [phone] Care Team Providers Care Dance Costume Designer Name Role Phone Sukh Holman MD Primary Care Provider [phone] Reason for Visit * Reason Onset Date Comments Medication Question 11/25/2023 Encounter Details Date Type Department Care Team (Late st Contact Info) Description 11/25/2023 Telephone Pharmacy, [facility] 132 [facility] [place] [address] Guillermina Marquez, [facility] [place] [place] [address] Medication Question Allergies Active Allergy Reactions Criticality Noted Date Comments Adhesive Tape Itching,Rash 07/29/2016 Paper tape is fine documented as of this encounter (statuses as of 2023) Medications Medication Sig Dispensed Refills Start Date End Date Status Blood Glucose Monitoring Suppl (ONE TOUCH ULTRA SYSTEM KIT) W/DEVICE KITIndications:D M type 2 goal A1C below 7.5 Use up to four times a day as directed. Dx: 250.00 1 Kit 0 5 Active aspirin 81 MG chewable tabletIndication s:Type 2 diabetes mellitus with hemoglobin A1c goal of less than 7.5% ([facility]) Take 1 Tab by mouth daily. with [...] HFA 108 (90 Base) MCG/ACT Inhalation Aerosol SolutionIndicati ons:Shortness of breath,Acute bronchospasm INHALE 2 PUFFS BY MOUTH EVERY 4 HOURS NEEDED FOR SORE THROAT OR WHEEZING. 18 g 5 4 Active Propranolol HCl 20 MG Oral Tablet (Inderal)Indicat ions:Essential tremor TAKE 1 TABLET BY MOUTH IN THE MORNING AND BEFORE BEDTIME 180 Tablet 3 4 Active Atorvastatin Calcium 20 MG Oral Tablet (Lipitor)Indicat ions:Dyslipidemi a, goal LDL below 100 TAKE 1 TABLET BY MOUTH EVERY DAY 90 Tablet 3 4 Active Fluticasone Propionate 50 MCG/ACT Nasal Suspension (Flonase)Indicat ions:Postnasal drip USE 2 SPRAY(S) IN EACH NOSTRIL ONCE DAILY 48 g 1 4 Active Cyclobenzaprine HCl 10 MG Oral Tablet (Flexeril)Indica tions:Spasm of muscle TAKE 1 TABLET BY MOUTH THREE TIMES A DAY 270 Tablet 3 4 Active Pantoprazole Sodium 40 MG Oral Tablet Delayed Release (Protonix)Indica tions:Reflux esophagitis TAKE 1 TABLET BY MOUTH EVERY DAY IN THE MORNING 90 Tablet 1 4 Active Fluticasone Propionate 50 MCG/ACT Nasal Suspension (Flonase)Indicat ions:Postnasal drip SPRAY 2 SPRAYS INTO EACH NOSTRIL ONCE DAILY 48 mL 5 4 Active Additional Information Patient not taking.Reported on 06/29/2023 DULoxetine HCl 30 MG Oral Capsule Delayed Release Particles (Cymbalta)Indica tions:Fibromyalg ia TAKE 2 CAPSULES BY MOUTH IN THE MORNING 180 Capsule 3 4 Active Cyanocobalamin 1000 MCG Oral Tablet (Cyanocobalamin) Indications:Low serum vitamin B12 Take 1 Tablet by mouth in the morning. 90 Tablet 4 Active Prochlorperazine Maleate 10 MG Oral Tablet (Compazine)Indic ations:Anal cancer (HCC) TAKE 1 TABLET BY MOUTH EVERY 6 HOURS NEEDED FOR NAUSEA 60 Tablet 2 4 Active Trelegy Ellipta 200-62.5-25 MCG/ACT Aerosol Powder Breath Activated (Fluticasone-Ume clidinium-Vilant nishi) INHALE 1 PUFF BY MOUTH IN THE [...] Active Alendronate Sodium 70 MG Oral Tablet (Fosamax)Indicat ions:weekly on sundays TAKE 1 TABLET (70 MG) BY MOUTH ONCE A WEEK 12 Tablet 1 4 Active Furosemide 40 MG Oral Tablet (Lasix) Take 1 Tablet by mouth as needed for Other (swelling, fluid retention). 90 Tablet 3 4 Active Meloxicam 15 MG Oral Tablet (Mobic)Indicatio ns:Fibromyalgia TAKE 1 TABLET BY MOUTH EVERY DAY FOR PAIN 90 Tablet 1 4 Active Morphine Sulfate ER 15 MG Oral Tablet Extended Release (Ms Contin)Indicatio ns:Anal cancer (HCC),Anal squamous cell carcinoma (HCC) Take 1 Tablet by mouth in the morning and 1 Tablet before bedtime. Max 45 tablets/month.. 60 Tablet 4 Active Ondansetron HCl 8 MG Oral Tablet (Zofran)Indicati ons:Anal cancer (HCC) Take 1 Tablet by mouth every 8 hours as needed for Nausea. 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 90 Tablet 3 4 Active buPROPion HCl ER (XL) 150 MG Oral Tablet Extended Release 24 Hour (Wellbutrin XL)Indications:F ibromyalgia,Depr ession TAKE 1 TABLET BY MOUTH EVERY DAY 90 Tablet 1 4 11/25/19 24 Discontinued HYDROmorphone HCl 4 MG Oral Tablet (Dilaudid)Indica tions:Anal squamous cell carcinoma (HCC) Take 1 Tablet by mouth every 4 hours as needed for Pain, Severe or Pain, Breakthrough. 30 Tablet 4 11/30/19 24 Discontinued(Ref ill) documented as of this encounter (statuses as [...] mRNA, LNP-s, No Pre serve, 2-Dose Series ([employer]) 10/03/2020,09/12/2020 Diptheria/Tetanus Adult (TD) 05/11/2000 H1N1 2009 [...] I IV3, With Preserve, Inj 02/28/2014,02/04/2012,03/06/2011,02/20,01/14/2009,03/07/2002,04/22/2001 ,05/11/2000,03/04/1999 TDAP, Age 7 and older, IM (Adacel) [...] No 08/16/2023 Does the household have a [facility] source of income? (Household - for ages [...] encounter Miscellaneous Notes * Telephone Encounter - Carina Pang LPN - 2023 4:22 PM EDT Called pt, aware and verbalized understanding * Telephone Encounter - Sukh Holman MD - 11/25/2023 1:20 PM EDT Increase wellbutrin from 150 to 300 daily. Can use two a day of the current script she has, but [id number] mg dose was sent to [facility] today. * Telephone Encounter - Guillermina Marquez RPh - 11/25/2023 12:10 PM EDT Hello, Patient seen in [facility] Pain today. Patient notes feels like depression symptoms are occurring despite medication. Wondering if any changes could be made for better control? Thank you, Guillermina Marquez, Pharm D, BCACP Clinical Pharmacist 11/25/2023, 12:11 PM documented in this encounter Plan of Treatment Upcoming Encounters Date Type Department Care Team (Late st Contact Info) Description 12/29/2023 2:40 PM EDT Office Visit Family [facility] [address] [place] [address] Sukh Holman MD [address] [place] [address] 02/02/2024 10:00 AM EDT Laboratory Laboratory [facility] [place] [address] [facility] [phone] Cecilia Mayen [facility] 200 [facility] [place] [address] 02/09/2024 1:45 PM EDT Office Visit Hematology/Oncology [facility] [address] [place] [phone] Marciano Pagan MD 200 [facility] [place] [address] 02/24/2024 11:30 AM EST Office Visit Pharmacy, [facility] 132 [facility] [place] [address] [facility] [address] [facility] [place] [address] 02/28/2024 2:00 PM EST Office Visit Cardiology, [facility] [address] [facility] [place] [address] Rosa Elena Ko [facility]-C [facility] [place] [address] 05/11/2024 2:00 PM EST Office Visit Care at Home [address] [place], [place] [phone] Awa Hudr PA-C [address] [place] [address] 08/23/2024 4:00 PM EDT Office Visit [facility] [place] [address] Sukh Holman MD [address] [place] [address] Scheduled Procedures Name Priority Associated Diagnoses Date/Ti [...] D LEVEL ONCE IN A LIFETIME-USE SMARTSET# 12237 Completed 01/23/2019, 08/10/2017, 07/06/2016, Additional history exists Zoster Vaccines Completed 01/22/2020, 04/13, 10/10/2015 RETIRED - COLONOSCOPY-EVERY 5 YRS AGES 18-100 Discontinued 08/23/2020, 08/23/2020, 06/24/2016, Additional history exists HPV (Gardasil) Vaccine Aged Out No lo nger eligible based on patient's age to complete this topic documented as of this encounter Medical Devices Implanted Type Area Tug Boat Captain Device Identifier Shelf Expiration Date Model / Serial / Lot Headless Compression Screw Implanted:Qty: 1 on 07/26/2020 by South Mtz MD at OR [facility] Left: Finger AR-8725-24 H / / Description:left middle fing er Ascesion Silicone Pip Finger Implant Implanted:Qty: 1 on 07/26/2020 by South Mtz MD at OR [facility] Left: Finger 06/09/2022 SPIP-520-1 -[id number] / / [id number] Description:middle finger documented as of this encounter [...] and were consensually agreed upon. Care Teams Dance Costume Designer Relationship Specialty Start Date End Date Sukh Holman MD 132 [facility] [place] [address] PCP - General Family Medicine 07/26/20 documented as of this encounter
--- OUTSIDE RECORDS SUMMARY | 2023-12-24 04:00 | External Medical Summary | Summary of Care ---
Author Name Unknown Organization [facility] Address [address] [place] [address] Phone [phone] Care Team Providers Care Cancer Registrar Name Role Phone Sukh Holman MD Primary Care Provider [phone] Reason for Visit * Reason Comments Dosage Adjustment In Person (Anticoag Cl inic) Pain Encounter Details Date Type Department Care Team (Late st Contact Info) Description 11/25/2023 11:30 AM EDT Office Visit Pharmacy, [facility] [address] [place] [address] [facility] [address] [place] [address] Fibromyalgia* Allergies Active Allergy Reactions Criticality Noted Date Comments Adhesive Tape Itching,Rash 07/29/2016 Paper tape is fine documented as of this encounter (statuses as of 11/25/2023) Medications Medication Sig Dispensed Refills Start Date [...] Additional Information Patient not taking.Reported on 06/29/2023 buPROPion HCl ER (XL) 150 MG Oral [...] before bedtime. 90 Capsule 3 11/08/2023 Active HYDROmorphone HCl 4 MG Oral Tablet (Dilaudid)Indicatio ns:Anal squamous cell carcinoma (HCC) Take 1 Tablet by mouth every 4 hours as needed for Pain, Severe or Pain, Breakthrough. 30 Tablet 11/22/2023 Active documented as of this encounter (statuses as of 11/25/2023) Active Problems Problem Noted Date Diagnosed Date [...] as of this encounter (statuses as of 11/25/2023) Resolved Problems Problem Noted Date Diagnosed Date [...] as of this encounter (statuses as of 11/25/2023) Immunizations Name Administration Dates Next Due COVID-19 mRNA, LNP-s, No Pre serve, 2-Dose Series ([employer]) 10/03/2020,09/12/2020 H1N1 2009 Influenza, IM 05/03/2009 Hepatitis [...] as of this encounter Progress Notes * Guillermina Marquez, [facility] - 11/25/2023 11:38 AM EDT Images from the original note were not included. Medication Therapy Disease Management Clinic - Chronic Pain Management Progress Note 11/25/2023 Emiliana Donis, identified by name and date of , is a 67 year old female being seen for chronicpain management/education. Patient presents to pain MTM clinic for return visit. Referring Physician: Dr. Pagan Medication Use Agreement: on file Patient's Pharmacy: [facility] COMPLAINT: cancer pain/wean HPI: Patient states she is sleeping a lot during the day Significant other is concern about her sleeping during the day due to depression Significant other is going back to work next week and concerned Notes is taking 1 tablet of morphine daily Notes hydromorphone about 3 tablets daily Psychiatric Hx: None Neurological Hx: None Cardiac [...] 15 MME since last visit) PDMP Reviewed (11/25/23): Pill Count: Dilaudid- 32 ; Morphine - 43( 2 manufacturers ) Functional Goal: QOL Current Pain Level (11/25/23): stable Pain Level (09/23/23): stable Pain Level (06/23/23): stable Pain Level (04/01/23): no change Pain Level (11/05/22): stable Pain Level (09/03/22): 7/10 Pain Level (07/02/22): stable Pain Level (04/23/2022): Stable Pain Level (01/05/22): Stable Pain Level (11/24/21): stable Pain Level (10/27/21): stable Pain Level (09/24/2021): controlled Current Pain Medications: REDUCE MS Contin 15mg daily. Second tablet PRN. Max 45 tablets/month. Hydromorphone 4 mg q4hr- sometimes taking 3-4 tablets daily if needed Meloxicam 15 mg daily Flexeril 10 mg TID Gabapentin 300 mg TID Duloxetine 60mg daily *ropinirole 3mg HS, trazadone 50mg HS, ondansetron 8mg PRN, prochlorperazine 10mg PRN Creatinine Clearance: Serum creatinine: 1.2 mg/dL (H) 08/31/23 1549 Estimated creatinine clearance: 46.7 mL/min (A) Creatinine Results: Recent Labs Units 08/31/23 1549 08/23/23 1146 06/29/23 1412 CREATININE - [facility] mg/dL 1.2* 1.2* 1.3* Hepatic Function (ALT): Recent Labs Units 06/29/23 1412 07/24/22 1028 03/25/22 1538 ALT - [facility] U/L 16 9* 16 Comprehensive Metabolic Panel Results: Results for orders placed or performed in visit on 06/29/23 COMPREHENSIVE METABOLIC PANEL Result Value Ref Range BUN 24 (H) 6 - 20 mg/dL Creatinine 1.3 (H) 0.5 - 1.0 mg/dL Estimated Glomerular Filtration Rate 43 (L) >=60 mL/min Sodium 134 (L) 135 - 146 mmol/L Potassium 3.8 3.5 - 5.1 mmol/L Chloride 91 (L) 98 - 107 mmol/L CO2 32 22 - 32 mmol/L Anion Gap 11 7 - 15 mmol/L Glucose 152 (H) 70 - 120 mg/dL Albumin 4.6 3.8 - 5.0 g/dL AST 14 10 - 35 U/L Alkaline Phosphatase 72 35 - 130 U/L Bilirubin, Total 0.4 <=1.2 mg/dL Calcium 9.7 8.4 - 10.2 mg/dL Protein 6.9 6.0 - 8.3 g/dL ALT 16 10 - 35 U/L ASSESSMENT: Patient aware MTM is a clinical pharmacist visit, with focus on medication options for current diagnoses referred by Primary Care Provider for review and optimization. Focus of this visit is Medication Optimization. Current concerns: worse depression symptoms, pain well controlled Adherence: Reviewed current regimen, patient is adherent to regimen. Treatment options: continue current pain medications, work on weaning down further Treatment concerns: concern for depression symptoms and lack of efficacy with medications will follow up with pcp Education provided: discussed mood and discussed contemplation of smoking cessation I have evaluated the patient for the appropriateness and necessity of opioid pain medications. Patient has been educated towards the benefits and risks of opioid medications, including dependence, addiction, and overdose. Patient is aware of the requirements set out in the medication use agreement,including the need for routine urine drug screening. No red flags for abuse or misuse have been exhibited. PLAN: No Change Medication changes: no change Pain Medications: MS Contin 15mg daily. Second tablet PRN. Max 45 tablets/month. Hydromorphone 4 mg q4hr- sometimes taking 3-4 tablets daily if needed Meloxicam 15 mg daily Flexeril 10 mg TID Gabapentin 300 mg TID Duloxetine 60mg daily *ropinirole 3mg HS, trazadone 50mg HS, ondansetron 8mg PRN, prochlorperazine 10mg PRN Patient verbalized understanding of the plan. Contact clinic with any issues. I spent a total of 30-39 minutes (exact time 30 mins) on the date of service in preparation, delivery, and documentation of the care provided to Emiliana Donis excluding any time spent in the performance of separately billed services or time spent by another provider/QHP. FOLLOW UP: Return to clinic in 12 weeks 02/24/2024 Guillermina Marquez [facility] Clinical Pharmacist - Assistant Professor Of English Medication Therapy Management Clinic 11/25/2023, 11:39 AM documented in this encounter Plan of Treatment Upcoming Encounters Date Type Department Care Team (Late st Contact Info) Description 12/29/2023 2:40 PM EDT Office Visit Family Practice [facility] [address] [place] [address] Sukh Holman MD [address] [place] [address] 02/02/2024 10:00 AM EDT Laboratory Laboratory [facility] [address] [address] [place] [phone] [facility] [address] [facility] [place] [address] 02/09/2024 1:45 PM EDT Office Visit Hematology/Oncology [facility] [place] [phone] Marciano Pagan MD [address] [address] 02/24/2024 11:30 AM EST Office Visit Pharmacy, [facility] 132 [facility] [place] [address] [facility] [place] [address] 02/28/2024 2:00 PM EST Office Visit Cardiology, [facility] 132 [facility] [place] [address] Rosa Elena Ko PA-C 132 [facility] [place] [address] 05/11/2024 2:00 PM EST Office Visit Care at Home [address] [place], [place] [phone] Awa Hurd PA-C [address] [place], [place] [phone] 08/23/2024 4:00 PM EDT Office Visit Family Practice [facility] 132 [facility] [place] [address] Sukh Holman MD [address] [facility] [place] [address] Scheduled Procedures Name Priority Associated Diagnoses Date/Ti [...] 01/27/2021, Additional history exists HbA1c 02/18/2024 08/18/2023, 06/2022, 03/25/2022, Additional history exists Albumin/Creatinine Ratio [...] D LEVEL ONCE IN A LIFETIME-USE SMARTSET# [id number] Completed 01/23/2019, 08/10/2017, 07/06/2016, Additional history exists Zoster Vaccines Completed 01/22/2020, 04/13, 10/10/2015 RETIRED - COLONOSCOPY-EVERY 5 YRS AGES 18-100 Discontinued 08/23/2020, 08/23/2020, 06/24/2016, Additional history exists HPV (Gardasil) Vaccine Aged Out No lo nger eligible based on patient's age to complete this topic documented as of this encounter Medical Devices Implanted Type Area Retail Clerk Device Identifier Shelf Expiration Date Model / Serial / Lot Headless Compression Screw Implanted:Qty: 1 on 07/26/2020 by South Mtz MD at OR [facility] Left: Finger AR-8725-24 H / / Description:left middle fing er Ascesion Silicone Pip Finger Implant Implanted:Qty: 1 on 07/26/2020 by South Mtz MD at OR [facility] Left: Finger 06/09/2022 [id number]-520-1 -[id number] / / [id number] Description:middle finger documented as of this encounter Visit Diagnoses Diagnosis Fibromyalgia- Primary Mylagia and myositis, unspecified documented in this [...] and were consensually agreed upon. Care Teams Cancer Registrar Relationship Specialty Start Date End Date Sukh Holman MD [address] [place] [address] PCP - General Family Medicine 07/26/20 documented as of this encounter
--- OUTSIDE RECORDS SUMMARY | 2023-12-24 04:00 | External Medical Summary | Summary of Care ---
Author Name Unknown Organization [facility] Address [address] [place] [address] Phone [phone] Care Team Providers Care Blender/Braze Applicator Name Role Phone Sukh Holman MD Primary Care Provider [phone] Reason for Visit * Reason Onset Date Comments Medication Refill 11/11/2023 Encounter Details Date Type Department Care Team (Late st Contact Info) Description 11/11/2023 Refill Hematology/Oncology [facility] [address] [place] [phone] Marciano Pagan MD [address] [place] [address] Anal squamous cell carcinoma (HCC) Allergies Active Allergy Reactions Criticality Noted Date Comments Adhesive Tape Itching,Rash 07/29/2016 Paper tape is fine documented as of this encounter (statuses as of 11/11/2023) Medications Medication Sig Dispensed Refills Start Date [...] Pain, Severe or Pain, Breakthrough. 30 Tablet 11/11/2023 Active HYDROmorphone HCl 4 MG Oral Tablet (Dilaudid)Indicat ions:Anal squamous cell carcinoma (HCC) Take 1 Tablet by mouth every 4 hours as needed for Pain, Severe or Pain, Breakthrough. 30 Tablet 11/01/2023 Discontinue d(Refill) documented as of this encounter (statuses as of 11/11/2023) Active Problems Problem Noted Date Diagnosed Date [...] as of this encounter (statuses as of 11/11/2023) Resolved Problems Problem Noted Date Diagnosed Date [...] as of this encounter (statuses as of 11/11/2023) Immunizations Name Administration Dates Next Due COVID-19 mRNA, LNP-s, No Pre serve, 2-Dose Series ([employer]) 10/03/2020,09/12/2020 H1N1 2009 Influenza, IM 05/03/2009 Hepatitis [...] Telephone Encounter - Marciano Pagan MD - 11/11/2023 10:15 AM EDT E-prescribed hydromorphone. Marciano Pagan MD Hem/Onc * Telephone Encounter - Nani Morel LPN - 11/11/2023 9:37 AM EDTPending Prescriptions: Disp Refills HYDROmorphone HCl 4 MG Oral Tablet (Dilaud*30 Tab*0 Sig: Take 1 Tablet by mouth every 4 hours as needed for Pain, Severe or Pain, Breakthrough. * Telephone Encounter - Nani Morel LPN - 11/11/2023 9:27 AM EDT Refill request for Hydromorphone Hcl 4 mg tab pended below: Last Refill:11/01/2023 PDMP: No issues, last filled 11/01/2023; #30 tabs for 5-day supply Next Appt.:02/09/2024 documented in this encounter Plan of Treatment Upcoming Encounters Date Type Department Care Team (Late st Contact Info) Description 11/16/2023 1:00 PM EDT Telemedicine General Surgery, [address] [address] Rosa Elena Faith MD [address] [place] [address] 11/25/2023 11:30 AM EDT Office Visit Pharmacy, [address] [place] [address] [facility] [address] [place] [address] 12/29/2023 2:40 PM EDT Office Visit [facility] [address] [place] [address] Sukh Holman MD [address] [place] [address] 02/02/2024 10:00 AM EDT Laboratory Laboratory [facility] [address] [place] [phone] [facility] [address] [place] [address] 02/09/2024 1:45 PM EDT Office Visit Hematology/Oncology [facility] [address] [place] [phone] Marciano Pagan MD [address] [place] [address] 02/28/2024 2:00 PM EST Office Visit Cardiology, [facility] [address] [place] [address] Rosa Elena Ko PA-C 132 [facility] [place] [address] 05/11/2024 2:00 PM EST Office Visit [facility] at [facility] [address] [place] [address] Awa Hurd PA-C [address] [place], [place] [phone] 08/23/2024 4:00 PM EDT [facility] [place] [address] Sukh Holman MD [address] [facility] [place] [address] Scheduled Procedures Name Priority Associated Diagnoses Date/Ti me COLONOSCOPY FLEXIBLE PROXIMAL DIAGNOSTIC Recall History of anal cancer Health Maintenance Due Date Last Done Comments DISCUSS TOBACCO CESSATION (REFER TO SMARTSET #4881) 1955 Alpha-1 Antitrypsin 11/29/1973 Cologuard 11/29/2000 Fecal [...] Additional history exists Depression Screening 06/23/2024 06/24/2023 B-12 08/17/2024 08/18/2023, [...] D LEVEL ONCE IN A LIFETIME-USE SMARTSET# 99834 Completed 01/23/2019, 08/10/2017, 07/06/2016, Additional history exists Zoster Vaccines Completed 01/22/2020, 04/13, 10/10/2015 RETIRED - COLONOSCOPY-EVERY 5 YRS AGES 18-100 Discontinued 08/23/2020, 08/23/2020, 06/24/2016, Additional history exists HPV (Gardasil) Vaccine Aged Out No lo nger eligible based on patient's age to complete this topic documented as of this encounter Medical Devices Implanted Type Area Hanger Device Identifier Shelf Expiration Date Model / Serial / Lot Headless Compression Screw Implanted:Qty: 1 on 07/26/2020 by South Mtz MD at OR [facility] Left: Finger AR-8725-24 H / / Description:left middle fing er Ascesion Silicone Pip Finger Implant Implanted:Qty: 1 on 07/26/2020 by South Mtz MD at OR [facility] Left: Finger 06/09/2022 [id number]-520-1 -[id number] / / [id number] Description:middle finger documented as of this encounter [...] and were consensually agreed upon. Care Teams Blender/Braze Applicator Relationship Specialty Start Date End Date Sukh Holman MD [address] [place] [address] PCP - General Family Medicine 07/26/20 documented as of this encounter
--- OUTSIDE RECORDS SUMMARY | 2023-12-24 04:00 | External Medical Summary | Summary of Care ---
Author Name Unknown Organization [facility] Address [address] [place] [address] Phone [phone] Care Team Providers Care Systems Architecture Analyst Name Role Phone Sukh Holman MD Primary Care Provider [phone] Reason for Visit * Reason Onset Date Comments Medication Refill 11/21/2023 Encounter Details Date Type Department Care Team (Late st Contact Info) Description 11/21/2023 Refill Hematology/Oncology [facility] [address] [place] [phone] Marciano Pagan MD [address] [place] [address] Anal squamous cell carcinoma (HCC) Allergies Active Allergy Reactions Criticality Noted Date Comments Adhesive Tape Itching,Rash 07/29/2016 Paper tape is fine documented as of this encounter (statuses as of 11/22/2023) Medications Medication Sig Dispensed Refills Start Date [...] or Pain, Breakthrough. 30 Tablet 11/22/2023 Active HYDROmorphone HCl 4 MG Oral Tablet (Dilaudid)Indicat ions:Anal squamous cell carcinoma (HCC) Take 1 Tablet by mouth every 4 hours as needed for Pain, Severe or Pain, Breakthrough. 30 Tablet 11/11/2023 Discontinue d(Refill) documented as of this encounter (statuses as of 11/22/2023) Active Problems Problem Noted Date Diagnosed Date [...] as of this encounter (statuses as of 11/22/2023) Resolved Problems Problem Noted Date Diagnosed Date [...] as of this encounter (statuses as of 11/22/2023) Immunizations Name Administration Dates Next Due COVID-19 mRNA, LNP-s, No Pre serve, 2-Dose Series ([employer]) 10/03/2020,09/12/2020 H1N1 2009 Influenza, IM 05/03/2009 Hepatitis [...] Telephone Encounter - Marciano Pagan MD - 11/22/2023 10:36 AM EDT E-prescribed Marciano Pagan MD Hem/Onc * Telephone Encounter - Nani Morel LPN - 11/22/2023 8:52 AM EDTPending Prescriptions: Disp Refills HYDROmorphone HCl 4 MG Oral Tablet (Dilaud*30 Tab*0 Sig: Take 1 Tablet by mouth every 4 hours as needed for Pain, Severe or Pain, Breakthrough. * Telephone Encounter - Nani Morel LPN - 11/22/2023 8:50 AM EDT Refill request for Hydromorphone Hcl 4 mg tablets pended below: Last Refill:11/11/2023 PDMP Search: Last filled 11/11/2023, # 30 tabs for a 5-day supply, no issues Last seen:08/10/2023 Next Appt.:02/09/2024 documented in this encounter Plan of Treatment Upcoming Encounters Date Type Department Care Team (Late st Contact Info) Description 11/25/2023 11:30 AM EDT [facility] [address] [place] [address] [address] [facility] [place] [address] 12/29/2023 2:40 PM EDT Office Visit Family Practice [facility] [address] [place] [address] Sukh Holman MD [address] [place] [address] 02/02/2024 10:00 AM EDT Laboratory Laboratory [facility] [address] [place] [phone] [facility] [address] [place] [address] 02/09/2024 1:45 PM EDT Office Visit Hematology/Oncology [facility] [address] [place] [phone] Marciano Pagan MD [address] [place] [address] 02/28/2024 2:00 PM EST Office Visit Cardiology, [facility] [address] [place] [address] Rosa Elena Ko PA-C [address] [place] [address] 05/11/2024 2:00 PM EST Office Visit [facility] at [facility] [address] [place], [place] [phone] Awa Hurd PA-C [address] [place], [place] [phone] 08/23/2024 4:00 PM EDT Office Visit Family Practice [facility] [address] [place] [address] uSkh Holman MD [address] [place] [address] Scheduled Procedures Name Priority Associated Diagnoses Date/Ti [...] D LEVEL ONCE IN A LIFETIME-USE SMARTSET# [id number] Completed 01/23/2019, 08/10/2017, 07/06/2016, Additional history exists Zoster Vaccines Completed 01/22/2020, 04/13, 10/10/2015 RETIRED - COLONOSCOPY-EVERY 5 YRS AGES 18-100 Discontinued 08/23/2020, 08/23/2020, 06/24/2016, Additional history exists HPV (Gardasil) Vaccine Aged Out No lo nger eligible based on patient's age to complete this topic documented as of this encounter Medical Devices Implanted Type Area Roll Up Helper Device Identifier Shelf Expiration Date Model / Serial / Lot Headless Compression Screw Implanted:Qty: 1 on 07/26/2020 by South Mtz MD at OR [facility] Left: Finger AR-8725-24 H / / Description:left middle fing er Ascesion Silicone Pip Finger Implant Implanted:Qty: 1 on 07/26/2020 by South Mtz MD at OR [facility] Left: Finger 06/09/2022 [id number]-520-1 -[id number] / / [id number] Description:middle finger documented as of this encounter [...] and were consensually agreed upon. Care Teams Systems Architecture Analyst Relationship Specialty Start Date End Date Sukh Holman MD [address] [place] [address] PCP - General Family Medicine 07/26/20 documented as of this encounter
--- OUTSIDE RECORDS SUMMARY | 2023-12-24 04:00 | External Medical Summary | Summary of Care ---
Author Name Unknown Organization [facility] Address [address] [place] [address] Phone [phone] Care Team Providers Care Oil Sprayer Name Role Phone Rigo Holman MD Primary Care Provider [phone] Reason for Visit * Reason Onset Date Comments Medication Refill 11/08/2023 Encounter Details Date Type Department Care Team (Late st Contact Info) Description 11/08/2023 Refill Family Practice [facility] [address] [facility] [place] [address] Rigo Holman MD [address] [place] [address] Allergies Active Allergy Reactions Criticality Noted Date Comments Adhesive Tape Itching,Rash 07/29/2016 Paper tape is fine documented as of this encounter (statuses as of 11/09/2023) Medications Medication Sig Dispensed Refills Start Date [...] AT BEDTIME 90 Tablet 3 10/27/2023 Active HYDROmorphone HCl 4 MG Oral Tablet (Dilaudid)Indicat ions:Anal squamous cell carcinoma (HCC) Take 1 Tablet by mouth every 4 hours as needed for Pain, Severe or Pain, Breakthrough. 30 Tablet 11/01/2023 Active metFORMIN HCl 1000 MG Oral Tablet [...] before bedtime. 90 Capsule 3 11/08/2023 Active Nystatin Powder Apply to affected area three times per day until healed. 1 Each 1 08/23/2023 Discontinue d(Refill) documented as of this encounter (statuses as of 11/09/2023) Active Problems Problem Noted Date Diagnosed Date [...] as of this encounter (statuses as of 11/09/2023) Resolved Problems Problem Noted Date Diagnosed Date [...] as of this encounter (statuses as of 11/09/2023) Immunizations Name Administration Dates Next Due COVID-19 mRNA, LNP-s, No Pre serve, 2-Dose Series ([employer]) 10/03/2020,09/12/2020 H1N1 2009 Influenza, IM 05/03/2009 Hepatitis [...] Telephone Encounter - Rigo Holman MD - 11/09/2023 12:18 PM EDTSigned Prescriptions: Disp Refills Nystatin Powder 1 Each 1 Sig: Apply to affected area three times per day until healed. Authorizing Provider: RIGO HOLMAN * Telephone Encounter - Bonita Jacobs [facility] - 11/09/2023 11:14 AM EDTPending Prescriptions: Disp Refills Nystatin Powder 1 Each 1 Sig: Apply to affected area three times per day until healed. * Telephone Encounter - Bonita Jacobs [facility] - 11/09/2023 11:14 AM EDT Refill pharmacists currently not authorized to approve refills for this class of medication per refill protocol. Please approve if appropriate. Pending Prescriptions: Disp Refills Nystatin Powder 1 Each 1 Sig: Apply to affected area three times per day until healed. 08/23/2023 (in office), 03/17/2021 (telemedicine) 12/29/2023 If no future appointments scheduled, and last appointment is greater than a year ago, please schedule patient for a follow-up appointment Last date the medication was ordered: 08/23/23 Pharmacy: [id number] [place] [address] Is this request for a controlled substance? no Urine Drug Screen:No results found. However, due to the size of the patient record, not all encounters were searched. Please check Results Review for a complete set of results. Patient Phone Numbers Labs: Lab Results Component Value Date/Time CREAT 1.2 (H) 08/31/2023 03:49 PM CREAT 0.6 11/17/2019 11:47 AM POTASSIUM 4.6 08/31/2023 03:49 PM POTASSIUM <2.0 (LL) 03/04/2022 07:00 PM POTASSIUM 4.5 09/06/2019 03:40 PM TSH 3.54 03/12/2020 09:20 AM LDLCALC 40 06/30/2021 11:58 AM LDLCALC UNINTERPRETABLE RESULT 07/01/2018 04:01 PM LDLDIRECT 46 05/05/2023 01:01 PM LDLDIRECT 144 (H) 07/01/2018 04:01 PM LDLDIRECT 139 (H) 11/02/2014 09:12 AM ALT 16 06/29/2023 02:12 PM ALT 10 09/06/2019 03:40 PM HGBA1C 6.9 (H) 08/18/2023 01:09 PM HGBA1C 5.3 11/01/2019 09:36 AM documented in this encounter Plan of Treatment Upcoming Encounters Date Type Department Care Team (Late st Contact Info) Description 11/16/2023 1:00 PM EDT Telemedicine General Surgery, [facility] [address] [place] [address] Rosa Elena Faith MD [address] [place] [address] 11/25/2023 11:30 AM EDT Office Visit Pharmacy, [facility] [address] [place] [address] [facility] [address] [place] [address] 12/29/2023 2:40 PM EDT Office Visit Family Practice [facility] [address] [place] [address] Rigo Holman MD [address] [place] [address] 02/02/2024 10:00 AM EDT Laboratory Laboratory [facility] [address] [place] [phone] Cecilia Mayen [facility] [address] [place] [address] 02/09/2024 1:45 PM EDT Office Visit Hematology/Oncology [facility] [address] [place] [phone] Marciano Pagan MD [address] [place] [address] 02/28/2024 2:00 PM EST Office Visit Cardiology, [facility] [address] [place] [address] Rosa Elena Ko [facility]C [facility] [place] [address] 05/11/2024 2:00 PM EST Office Visit [facility] at Home [address] [place], [place] [phone] Awa Hurd PA-C [address] [place] [address] 08/23/2024 4:00 PM EDT Office Visit Family Practice [facility] [address] [place] [address] Rigo Holman MD [address] [place] [address] Scheduled Procedures Name Priority Associated Diagnoses Date/Ti me COLONOSCOPY FLEXIBLE PROXIMAL DIAGNOSTIC Recall History of anal cancer Health Maintenance Due Date Last Done Comments DISCUSS TOBACCO CESSATION (REFER TO SMARTSET #0646) 1955 Alpha-1 Antitrypsin 11/29/1973 Cologuard 11/29/2000 Fecal [...] 05/13/2023 05/13/2021, 0204/2021, 06/14/2018, Additional history exists *CXR OR CT FOR COPD EVER 10/24/2023 Influenza Vaccine (FLU shot) (#1) 2023 01/08/2023, 12/29/2021, 01/27/2021, Additional history exists HbA1c 02/18/2024 08/18/2023, 05/0 06/2022, 03/25/2022, Additional history exists Albumin/Creatinine Ratio 04/02/2024 023, 09/09/2021, 05/28/2020, Additional history exists Depression [...] D LEVEL ONCE IN A LIFETIME-USE SMARTSET# 51273 Completed 01/23/2019, 08/10/2017, 07/06/2016, Additional history exists Zoster Vaccines Completed 01/22/2020, 04/13, 10/10/2015 RETIRED - COLONOSCOPY-EVERY 5 YRS AGES 18-100 Discontinued 08/23/2020, 08/23/2020, 06/24/2016, Additional history exists *BASELINE EKG FOR HTN Completed 02/12/2023 , 03/11/2022, 03/04/2022, Additional history exists HPV (Gardasil) Vaccine Aged Out No lo nger eligible based on patient's age to complete this topic documented as of this encounter Medical Devices Implanted Type Area [employer] Surface Fire Support Planner Device Identifier Shelf Expiration Date Model / Serial / Lot Headless Compression Screw Implanted:Qty: 1 on 07/26/2020 by South Mtz MD at OR [facility] Left: Finger AR-8725-24 H / / Description:left middle fing er Ascesion Silicone Pip Finger Implant Implanted:Qty: 1 on 07/26/2020 by South Mtz MD at OR [facility] Left: Finger 06/09/2022 SPIP-520-1 -[id number] / / [id number] Description:middle finger documented as of this encounter Advance Directives * Full Code [...] and were consensually agreed upon. Care Teams Oil Sprayer Relationship Specialty Start Date End Date Rigo Holman MD [address] [place] [address] PCP - General Family Medicine 07/26/20 documented as of this encounter
--- OUTSIDE RECORDS SUMMARY | 2023-12-24 04:00 | External Medical Summary | Summary of Care ---
Author Name Unknown Organization [facility] Address [address] [place] [address] Phone [phone] Care Team Providers Care Groutman Name Role Phone Sukh Holman MD Primary Care Provider [phone] [phone] Reason for Referral * Precert (Within 10 days (routine)) - Pending Review Specialty Diagnoses / Procedures Referred By Contac t Referred To Contact Radiology Diagnoses Anal squamous cell carcinoma (HCC) Procedures PET CT SKULL BASE TO MID-THIGH FDG Rosa Elena Faith MD [address] [place] [address] Referral ID Status Reason Start Date Expiration Date V isits Requested Visits Authorized [id number] Pending Review 05/18/[phone] Encounter Details Date Type Department Care Team (Late st Contact Info) Description 11/16/2023 1:00 PM EDT Telemedicine General [facility], [facility] [address] Rosa Elena Faith MD [address] [place] [address] Anal squamous cell carcinoma (HCC)* Allergies Active Allergy Reactions Criticality Noted Date Comments Adhesive Tape Itching,Rash 07/29/2016 Paper tape is fine documented as of this encounter (statuses as of 11/16/2023) Medications Medication Sig Dispensed Refills Start Date [...] with food. 100 Tab 5 12/18/2016 Active zeeWAVESUCH DELICA LANCETS 33G MISC Tests up to four times a day. DX code: 250.00 100 Each 11 05/22/2019 Active Stackdriver Ultra In Vitro Strip (Glucose Blood) USE [...] or Pain, Breakthrough. 30 Tablet 11/11/2023 Active documented as of this encounter (statuses as of 11/16/2023) Active Problems Problem Noted Date Diagnosed Date [...] as of this encounter (statuses as of 11/16/2023) Resolved Problems Problem Noted Date Diagnosed Date [...] Metabolic alkalosis 03/04/2022 03/16/20 22 Respiratory alkalosis 03/04/20222 Hypochloremia 03/04/2022 03/16/2022 Hypophosphatemia 03/04/2022 03/16/2022 Pneumonia [...] as of this encounter (statuses as of 11/16/2023) Immunizations Name Administration Dates Next Due COVID-19 mRNA, LNP-s, No Pre serve, 2-Dose Series ([employer]) 10/03/2020,09/12/2020 H1N1 2009 Influenza, IM 05/03/2009 Hepatitis [...] No 08/16/2023 Does the household have a [facility] [employer] [facility] source of income? (Household - for ages [...] Notes * Rosa Elena Faith MD - 11/16/2023 1:00 PM EDT After connecting to the patient via telephone, the patient was identified by name and date of . Patient was then informed that this was a telephone call only visit. The patient agreed to participate. Visit Disposition: Routine follow-up Total call duration was 8 minutes. Colorectal Return Visit 11/16/23 SUBJECTIVE: Emiliana Donis presents to the clinic for anal SCC routine follow up (in remission) s/p James protocol. She is 4 years and 4 months s/p James protocol (completed 07/28/2019). Doing well recently without major complaint. Some occasional twinges of pain around her parastomal hernia, but none lasting. No changes in ostomy function. Bleeds some times from down underneath. Pains in right lower side of abdomen. Otherwise doing very well. PET 09/16/23: IMPRESSION 1. Stable appearance of the nodule in the anterior left upper lobe without FDG avidity which could represent previously treated disease or sequela of prior infection. 2. No other abnormal areas of uptake are identified. Lung Cytology: Final Diagnosis A. Lung, Left lower lobe, CT guided core needle biopsy: Adequacy: Satisfactory for evaluation. Category: Malignant. Interpretation: Non-small cell carcinoma, favor adenocarcinoma (see comment). Colonoscopy 08/23/20: Impression: - Colonic fistula. - Diverticulosis in the sigmoid colon. - No specimens collected. - Otherwise normal to the terminal ileum, with retroflexed views of the ascending colon and rectum. Recommendation: - Repeat colonoscopy in 5 years for surveillance. OBJECTIVE: There were no vitals taken for this visit. From last visit: External Exam: External hemorrhoid, soft. No other lesions; minimal radiation change. DON: Good tone, no rough irregularities. Soft anal canal. Somewhat stenotic but admits a finger. Anterior soft, mobile mass along RV septum. Anoscopy: Unable to be satisfactorily completed due to stenosis with the size of anoscope availableto me. IMPRESSION: 66yo F with stable remission of Anal scc disease by PET, now 4 years 4 months out. PLAN: RTC 6 MONTHS PET 6 months also Surveillance Anal SCC Every 3-6 months x 5 years: -DON/Anoscopy -Inguinal node eval Yearly x 5 years -CT C/A/P and - MRI Pelvis Rosa Elena Faith MD [address] [place] [address] 11/16/23 documented in this encounter Plan of Treatment Upcoming Encounters Date Type Department Care Team (Late st Contact Info) Description 11/25/2023 11:30 AM EDT Office Visit Pharmacy, [facility] 132 [facility] [place] [address] [facility] 132 [facility] [place] [address] 12/29/2023 2:40 PM EDT Office Visit Family Practice [facility] [address] Sukh Holman MD [facility] [address] 02/02/2024 10:00 AM EDT Laboratory Laboratory [facility] [address] [place] [address] Park, Lab [facility] [place] [address] 02/09/2024 1:45 PM EDT Office Visit Hematology/Oncology [facility] [place] [address] [place] [address] Marciano Pagan MD [address] [place] [address] 02/28/2024 2:00 PM EST Office Visit Cardiology, [facility] 132 [facility] [place] [address] Rosa Elena Ko PA-C [address] [place] [address] 05/11/2024 2:00 PM EST Office Visit Care at Home [address] [place] [address] Awa Hurd PA-C [address] [place] [address] 08/23/2024 4:00 PM EDT Office Visit Family Practice [facility] [address] [place] [address] Sukh Holman MD [address] [facility] [place] [address] Scheduled Orders Name Type Priority Associated Diagnoses Orde r Schedule PET CT SKULL BASE TO MID-THIGH FDG Medical Imaging Routine Anal squamous cell carcinoma (HCC) Expected: 05/18/2024, Expires: 12/16/2024 Scheduled Procedures Name Priority Associated Diagnoses Date/Ti me COLONOSCOPY FLEXIBLE PROXIMAL DIAGNOSTIC Recall History of anal cancer Health Maintenance Due Date Last Done Comments DISCUSS TOBACCO CESSATION (REFER TO SMARTSET #4581) 1955 Alpha-1 Antitrypsin 11/29/1973 Cologuard 11/29/2000 Fecal Occult Blood Test 11/29/2000 Sigmoidoscopy 11/29/2000 Diabetic Eye Exam 01/21/2021 01/22/2020, , 01/10/2016, Additional history exists DTaP,Tdap,and Td Vaccines (2 - Td or Tdap) 07/16/2021 07/17/2011, 05/11/2000 Pneumococcal Vaccine: 65+ Years (2 of 2 - PCV) 02/25/2022 02/25/2021, 03/04/1999 Diabetic Foot Exam 09/09/2022 09/09/2021, 0 05/28/2020, 03/21/2019, Additional history exists COVID-19 Vaccine (24 season) 2022 01/28/2022, 09/12/2021, 04/09/2021, Additional history exists DXA Scan 05/13/2023 05/13/2021, 02/0 04/2021, 06/14/2018, Additional history exists Influenza Vaccine (FLU shot) (#1) 2023 01/08/2023, 12/29/2021, 01/27/2021, Additional history exists HbA1c 02/18/2024 08/18/2023, 0506/2022, 03/25/2022, Additional history exists Albumin/Creatinine Ratio 04/02/2024 [...] D LEVEL ONCE IN A LIFETIME-USE SMARTSET# 13942 Completed 01/23/2019, 08/10/2017, 07/06/2016, Additional history exists Zoster Vaccines Completed 01/22/2020, 04/13, 10/10/2015 RETIRED - COLONOSCOPY-EVERY 5 YRS AGES 18-100 Discontinued 08/23/2020, 08/23/2020, 06/24/2016, Additional history exists HPV (Gardasil) Vaccine Aged Out No lo nger eligible based on patient's age to complete this topic documented as of this encounter Medical Devices Implanted Type Area Notch Machine Operator Device Identifier Shelf Expiration Date Model / Serial / Lot Headless Compression Screw Implanted:Qty: 1 on 07/26/2020 by South Mtz MD at OR [facility] Left: Finger AR-8725-24 H / / Description:left middle fing er Ascesion Silicone Pip Finger Implant Implanted:Qty: 1 on 07/26/2020 by South Mtz MD at OR [facility] Left: Finger 06/09/2022 SPIP-520-1 -[id number] / / [id number] Description:middle finger documented as of this encounter [...] and were consensually agreed upon. Care Teams Groutman Relationship Specialty Start Date End Date Sukh Holman MD [address] [place] [address] PCP - General Family Medicine 07/26/20 documented as of this encounter
--- OUTSIDE RECORDS SUMMARY | 2023-12-24 04:01 | External Medical Summary | Summary of Care ---
Author Name Unknown Organization [facility] Address [address] [place] [address] Phone [phone] Care Team Providers Care Corporate Associate Name Role Phone Sukh Holman MD Primary Care Provider [phone] Reason for Visit * Reason Onset Date Comments Advice 11/01/2023 Dr. Pagan Encounter Details Date Type Department Care Team (Late st Contact Info) Description 11/01/2023 Refill Hematology/Oncology [facility] [address] [place] [address] Services, Scheduling [address] [place] [address] Anal squamous cell carcinoma (HCC) Allergies Active Allergy Reactions Criticality Noted Date Comments Adhesive Tape Itching,Rash 07/29/2016 Paper tape is fine documented as of this encounter (statuses as of 11/01/2023) Medications Medication Sig Dispensed Refills Start Date [...] OR WHEEZING. 18 g 5 04/15/2023 Active metFORMIN HCl 1000 MG Oral Tablet [...] THE MORNING 180 Each 1 08/20/2023 Active Nystatin Powder Apply to affected area three times per day until healed. 1 Each 1 08/23/2023 Active Additional Information Patient not taking.Reported on 08/24/2023 rOPINIRole HCl ER 6 MG Oral Tablet [...] Max 45 tablets/month.. 60 Tablet 10/21/2023 Active Gabapentin 300 MG Oral Capsule (Neurontin) Take 1 Capsule by mouth in the morning and 1 Capsule at noon and 1 Capsule before bedtime. 90 Capsule 3 10/26/2023 Active Ondansetron HCl 8 MG Oral Tablet (Zofran)Indications :Anal cancer (HCC) Take 1 Tablet by mouth every 8 hours as needed for Nausea. 30 Tablet 3 10/27/2023 Active traZODone HCl 50 MG Oral Tablet (Desyrel)Indication s:Persistent insomnia TAKE 1 TABLET BY MOUTH EVERYDAY AT BEDTIME 90 Tablet 3 10/27/2023 Active HYDROmorphone HCl 8 MG Oral TabletIndications:A nal squamous cell carcinoma (HCC) Take 0.5 Tablets by mouth every 4 hours as needed for Pain, Severe or Pain, Breakthrough. 30 Tablet 11/01/2023 Active documented as of this encounter (statuses as of 11/01/2023) Active Problems Problem Noted Date Diagnosed Date [...] as of this encounter (statuses as of 11/01/2023) Resolved Problems Problem Noted Date Diagnosed Date [...] as of this encounter (statuses as of 11/01/2023) Immunizations Name Administration Dates Next Due COVID-19 mRNA, LNP-s, No Pre serve, 2-Dose Series ([employer]) 10/03/2020,09/12/2020 Diptheria/Tetanus Adult (TD) 05/11/2000 H1N1 2009 [...] as of this encounter Miscellaneous Notes * Addendum Note - Amalia Daigle, RN - 11/01/2023 9:48 AM EDTAddended by: AMALIA DAIGLE on: 11/01/2023 09:48 AM Modules accepted: Orders * Telephone Encounter - Amalia Daigle RN - 11/01/2023 9:48 AM EDT Repended rx for 4mg tablets. * Telephone Encounter - Noris Guido OSA - 11/01/2023 9:16 AM EDT Bo from [facility] called to inquire if Emiliana's Hydromorphone could be changed from 8 mg to 4 mg. He advised they have been having supply issues with the medication for a few months and today they have the 4 mg in stock if a new prescription could be sent. Bo can be reached at [phone] with any questions. Thank you. documented in this encounter Plan of Treatment Upcoming Encounters Date Type Department Care Team (Late st Contact Info) Description 11/16/2023 1:00 PM EDT Telemedicine General Surgery, [facility] [address] [place] [address] Rosa Elena Faith MD [address] [place] [address] 11/25/2023 11:30 AM EDT Office Visit Pharmacy, [facility] [address] [place] [address] [facility] [address] [place] [address] 12/29/2023 2:40 PM EDT Office Visit Family Practice [facility] [address] [place] [address] Sukh Holman MD [address] [place] [address] 02/02/2024 10:00 AM EDT Laboratory Laboratory [facility] [address] [place] [phone] [facility] [address] [facility] [place] [address] 02/09/2024 1:45 PM EDT Office Visit Hematology/Oncology [facility] [place] [address] [place] [id number] Marciano Pagan MD [address] [place] [address] 02/28/2024 2:00 PM EST Office Visit Cardiology, [facility] [address] [place] [address] Rosa Elena Ko PA-C 132 [facility] [place] [address] 05/11/2024 2:00 PM EST Office Visit Care at Home [address] [place], [place] [phone] Awa Hurd PA-C [address] [place], [place] [id number] 08/23/2024 4:00 PM EDT Office Visit Family Practice [facility] 132 [facility] [place] [address] Sukh Holman MD [address] [place] [address] Scheduled Procedures Name Priority Associated Diagnoses Date/Ti me COLONOSCOPY FLEXIBLE PROXIMAL DIAGNOSTIC Recall History of anal cancer Health Maintenance Due Date Last Done Comments DISCUSS TOBACCO CESSATION (REFER TO SMARTSET #8685) 1955 Alpha-1 Antitrypsin 11/29/1973 Cologuard 11/29/2000 Fecal [...] D LEVEL ONCE IN A LIFETIME-USE SMARTSET# 06256 Completed 01/23/2019, 08/10/2017, 07/06/2016, Additional history exists [...] this encounter Medical Devices Implanted Type Area Genetics Teacher Device Identifier Shelf Expiration Date Model / Serial / Lot Headless Compression Screw Implanted:Qty: 1 on 07/26/2020 by South Mtz MD at OR [facility] Left: Finger AR-8725-24 H / / Description:left middle fing er Ascesion Silicone Pip Finger Implant Implanted:Qty: 1 on 07/26/2020 by South Mtz MD at [facility] Left: Finger 06/09/2022 SPIP-520-1 -[id number] / / [id number] Description:middle finger documented as of this encounter [...] and were consensually agreed upon. Care Teams Corporate Associate Relationship Specialty Start Date End Date Sukh Holman MD [address] [place] [address] PCP - General Family Medicine 07/26/20 documented as of this encounter
--- OUTSIDE RECORDS SUMMARY | 2023-12-24 04:01 | External Medical Summary | Summary of Care ---
Author Name Unknown Organization [facility] Address [address] [place] [address] Phone [phone] Care Team Providers Care Study Coordinator Name Role Phone Sukh Holman MD Primary Care Provider [phone] Reason for Visit * Reason Onset Date Comments Advice 11/01/2023 Dr. Pagan Encounter Details Date Type Department Care Team (Late st Contact Info) Description 11/01/2023 Telephone Hematology/Oncology [facility] [address] [place] [address] Services, Scheduling [address] [place] [address] Advice (Dr. Pagan ) Allergies Active Allergy Reactions Criticality Noted Date [...] mRNA, LNP-s, No Pre serve, 2-Dose Series ([employer]) 10/03/2020,09/12/2020 H1N1 2009 Influenza, IM 05/03/2009 Hepatitis [...] encounter Miscellaneous Notes * Telephone Encounter - Noris Guido OSA - 11/01/2023 9:16 AM EDT Bo from [facility] called to inquire if Emiliana's Hydromorphone could be changed from 8 mg to 4 mg. He advised they have been having supply issues with the medication for a few months and today they have the 4 mg in stock if a new prescription could be sent. Bo can be reached at [phone] with any questions. Thank you. documented in this encounter Plan of Treatment Upcoming Encounters Date Type Department Care Team (Late st Contact Info) Description 11/16/2023 1:00 PM EDT Telemedicine General Surgery, [facility] 132 [place] [address] Rosa Elena Faith MD [address] [place] [address] 11/25/2023 11:30 AM EDT Office Visit Pharmacy, [facility] [address] [place] [address] [facility] 132 [place] [address] 12/29/2023 2:40 PM EDT Office Visit Family Practice [facility] [address] [place] [address] Sukh Holman MD 132 [facility] [address] 02/02/2024 10:00 AM EDT Laboratory Laboratory [facility] [address] [place] [address] [facility] [address] [place] [address] 02/09/2024 1:45 PM EDT Office Visit Hematology/Oncology [facility] [place] [address] [place] [address] Marciano Pagan MD [address] [place] [address] 02/28/2024 2:00 PM EST Office Visit Cardiology, [facility] 132 [facility] [place] [address] Rosa Elena Ko PA-C [address] [place] [address] 05/11/2024 2:00 PM EST Office Visit Care at Home [address] [place], [place] [phone] Awa Hurd PA-C [address] [place] [address] 08/23/2024 4:00 PM EDT Office Visit Family [facility] [address] [place] [address] Sukh Holman MD [address] [place] [address] Scheduled Procedures Name Priority Associated Diagnoses Date/Ti [...] D LEVEL ONCE IN A LIFETIME-USE SMARTSET# 27724 Completed 01/23/2019, 08/10/2017, 07/06/2016, Additional history exists [...] this encounter Medical Devices Implanted Type Area Rod Piler Device Identifier Shelf Expiration Date Model / Serial / Lot Headless Compression Screw Implanted:Qty: 1 on 07/26/2020 by South Mtz MD at OR [facility] Left: Finger AR-8725-24 H / / Description:left middle fing er Ascesion Silicone Pip Finger Implant Implanted:Qty: 1 on 07/26/2020 by South Mtz MD at OR [facility] Left: Finger 06/09/2022 SPIP-520-1 -[id number] / / [id number] Description:middle finger documented as of this encounter [...] and were consensually agreed upon. Care Teams Study Coordinator Relationship Specialty Start Date End Date Suhk Holman MD 132 [facility] [place] [address] PCP - General Family Medicine 07/26/20 documented as of this encounter
--- OUTSIDE RECORDS SUMMARY | 2023-12-24 04:01 | External Medical Summary | Summary of Care ---
Author Name Unknown Organization [facility] Address [address] [place] [address] Phone [phone] Care Team Providers Care Activity Assistant Name Role Phone Rigo Holman MD Primary Care Provider [phone] Reason for Visit * Reason Onset Date Comments Medication Refill 11/08/2023 Encounter Details Date Type Department Care Team (Late st Contact Info) Description 11/08/2023 Refill Pharmacy, [facility] [address] [facility] [address] Rigo Hloman MD [address] [place] [address] Allergies Active Allergy Reactions Criticality Noted Date Comments Adhesive Tape Itching,Rash 07/29/2016 Paper tape is fine documented as of this encounter (statuses as of 11/08/2023) Medications Medication Sig Dispensed Refills Start Date [...] times per day until healed. 1 Each 08/23/2023 Active Additional Information Patient not taking.Reported [...] EVENING MEAL 180 Tablet 2 11/06/2023 Active Gabapentin 300 MG Oral Capsule (Neurontin) Take 1 Capsule by mouth in the morning and 1 Capsule at noon and 1 Capsule before bedtime. 90 Capsule 3 11/08/2023 Active Gabapentin 300 MG Oral Capsule (Neurontin) Take 1 Capsule by mouth in the morning and 1 Capsule at noon and 1 Capsule before bedtime. 90 Capsule 3 10/26/2023 Discontinue d(Refill) documented as of this encounter (statuses as of 11/08/2023) Active Problems Problem Noted Date Diagnosed Date [...] as of this encounter (statuses as of 11/08/2023) Resolved Problems Problem Noted Date Diagnosed Date [...] as of this encounter (statuses as of 11/08/2023) Immunizations Name Administration Dates Next Due COVID-19 mRNA, LNP-s, No Pre serve, 2-Dose Series ([employer]) 10/03/2020,09/12/2020 H1N1 2009 Influenza, IM 05/03/2009 Hepatitis [...] No 08/16/2023 Does the household have a rustlar source of income? (Household - for ages [...] encounter Miscellaneous Notes * Telephone Encounter - Guillermina Marquez [facility] - 11/08/2023 2:49 PM EDT Signed Prescriptions: Disp Refills Gabapentin 300 MG Oral Capsule (Neurontin) 90 Cap*3 Sig: Take 1 Capsule by mouth in the morning and 1 Capsule at noon and 1 Capsule before bedtime.Authorizing Provider: RIGO HOLMAN User: GUILLERMINA MARQUEZ documented in this encounter Plan of Treatment Upcoming Encounters Date Type Department Care Team (Late st Contact Info) Description 11/16/2023 1:00 PM EDT Telemedicine General Surgery, [facility] 132 [facility] [place] [address] Rosa Elena Faith MD [address] [place] [address] 11/25/2023 11:30 AM EDT Office Visit Pharmacy, [facility] 132 [facility] [place] [address] [facility] 132 [facility] [place] [address] 12/29/2023 2:40 PM EDT Office Visit Family Practice [facility] 132 [facility] [place] [address] Rigo Holman MD [address] [place] [address] 02/02/2024 10:00 AM EDT Laboratory Laboratory [facility] [address] [place] [phone] Cecilia Mayen [address] [place] [address] 02/09/2024 1:45 PM EDT Office Visit [facility]ology[facility] [place] [phone] Marciano Pagan MD 200 [facility] [place] [address] 02/28/2024 2:00 PM EST Office Visit Cardiology, [facility] [address] [place] [address] Rosa Elena Ko PA-C [facility] [place] [address] 05/11/2024 2:00 PM EST Office Visit Care at Home [address] [place] [address] Awa Hurd PA-C [address] [place] [address] 08/23/2024 4:00 PM EDT Office Visit Family Practice [facility] [address] [place] [address] Rigo Holman MD [address] [place] [address] Scheduled Procedures Name Priority Associated Diagnoses Date/Ti [...] 05/13/2021, 02/0 04/2021, 06/14/2018, Additional history exists *CXR OR CT [...] D LEVEL ONCE IN A LIFETIME-USE SMARTSET# 34619 Completed 01/23/2019, 08/10/2017, 07/06/2016, Additional history exists [...] this encounter Medical Devices Implanted Type Area Vineyardist Device Identifier Shelf Expiration Date Model / Serial / Lot Headless Compression Screw Implanted:Qty: 1 on 07/26/2020 by South Mtz MD at OR [facility] Left: Finger AR-8725-24 H / / Description:left middle fing er Ascesion Silicone Pip Finger Implant Implanted:Qty: 1 on 07/26/2020 by South Mtz MD at OR [facility] Left: Finger 06/09/2022 SPIP-520-1 -[id number] / / [id number] Description:middle finger documented as of this encounter [...] and were consensually agreed upon. Care Teams Activity Assistant Relationship Specialty Start Date End Date Rigo Holman MD [address] [place] [address] PCP - General Family Medicine 07/26/20 documented as of this encounter
--- OUTSIDE RECORDS SUMMARY | 2023-12-24 04:01 | External Medical Summary | Summary of Care ---
Author Name Unknown Organization [facility] Address [address] [place] [address] Phone [phone] Care Team Providers Care Online Activist Name Role Phone Sukh Holman MD Primary Care Provider [phone] Encounter Details Date Type Department Care Team (Late st Contact Info) Description 11/02/2023 Population Health External Data Unspecified Department Allergies Active Allergy Reactions Criticality Noted Date Comments Adhesive Tape Itching,Rash 07/29/2016 Paper tape is fine documented as of this encounter (statuses as of 11/05/2023) Medications Medication Sig Dispensed Refills Start Date [...] as of this encounter (statuses as of 11/05/2023) Active Problems Problem Noted Date Diagnosed Date [...] as of this encounter (statuses as of 11/05/2023) Resolved Problems Problem Noted Date Diagnosed Date [...] as of this encounter (statuses as of 11/05/2023) Immunizations Name Administration Dates Next Due COVID-19 mRNA, LNP-s, No Pre serve, 2-Dose Series ([employer]) 10/03/2020,09/12/2020 H1N1 2009 Influenza, IM 05/03/2009 Hepatitis [...] 11/16/2023 1:00 PM EDT Telemedicine General Surgery, [facility] [address] [place] [address] Rosa Elena Faith [facility] [address] [facility] [address] 11/25/2023 11:30 AM EDT Office Visit Pharmacy, [facility] [address] [place] [address] [address] [place], [facility] [place] [address] [place] [address] 12/29/2023 2:40 PM EDT Office Visit [place] [address] [place] [address] Sukh Holman MD [address] [place] [address] 02/02/2024 10:00 AM EDT Laboratory Laboratory [facility] [address] [place] [phone] [facility] [address] [place] [address] 02/09/2024 1:45 PM EDT Office Visit Hematology/Oncology [facility] [address] [place] [phone] Marciano Pagan MD [address] [place] [address] 02/28/2024 2:00 PM EST Office Visit Cardiology, [facility] [place] [address] Rosa Elena Ko PA-C 132 [facility] [place] [address] 05/11/2024 2:00 PM EST Office Visit Care at Home [address] [place] [address] Awa Hurd PA-C [address] [place] [address] 08/23/2024 4:00 PM EDT Office Visit Family [facility] [address] [place] [address] Sukh Holman MD [address] [place] [address] Scheduled Procedures Name Priority Associated Diagnoses Date/Ti me COLONOSCOPY FLEXIBLE PROXIMAL DIAGNOSTIC Recall History of anal cancer Health Maintenance Due Date Last Done Comments DISCUSS TOBACCO CESSATION (REFER TO SMARTSET #4930) 1955 Alpha-1 Antitrypsin 11/29/1973 Cologuard 11/29/2000 Fecal [...] D LEVEL ONCE IN A LIFETIME-USE SMARTSET# 15186 Completed 01/23/2019, 08/10/2017, 07/06/2016, Additional history exists [...] this encounter Medical Devices Implanted Type Area Electrical Equipment Technician Device Identifier Shelf Expiration Date Model / Serial / Lot Headless Compression Screw Implanted:Qty: 1 on 07/26/2020 by South Mtz MD at OR [facility] Left: Finger AR-8725-24 H / / Description:left middle fing er Ascesion Silicone Pip Finger Implant Implanted:Qty: 1 on 07/26/2020 by South Mtz MD at OR [facility] Left: Finger 06/09/2022 [id number]-520-1 -[id number] / / [id number] Description:middle finger documented as of this encounter [...] and were consensually agreed upon. Care Teams Online Activist Relationship Specialty Start Date End Date Sukh Holman MD [address] [place] [address] PCP - General Family Medicine 07/26/20 documented as of this encounter
--- OUTSIDE RECORDS SUMMARY | 2023-12-24 04:01 | External Medical Summary | Summary of Care ---
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 1 Each 1 4 Active Additional Information Patient not taking.Reported [...] Max 45 tablets/month.. 60 Tablet 4 Active Gabapentin 300 MG Oral Capsule (Neurontin) Take 1 Capsule by mouth in the morning and 1 Capsule at noon and 1 Capsule before bedtime. 90 Capsule 3 4 Active Ondansetron HCl 8 MG Oral Tablet (Zofran)Indicatio ns:Anal cancer (HCC) Take 1 Tablet by mouth every 8 hours as needed for Nausea. 30 Tablet 3 4 Active traZODone HCl 50 MG Oral Tablet (Desyrel)Indicati ons:Persistent insomnia TAKE 1 TABLET BY MOUTH EVERYDAY AT BEDTIME 90 Tablet 3 4 Active HYDROmorphone HCl 4 MG Oral Tablet (Dilaudid)Indicat ions:Anal squamous cell carcinoma (HCC) Take 1 Tablet by mouth every 4 hours as needed for Pain, Severe or Pain, Breakthrough. 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) TAKE 1 TABLET BY MOUTH TWICE A DAY WITH MORNING MEAL AND EVENING MEAL 180 Tablet 1 4 11/06/19 24 Discontinued documented as of this encounter (statuses as of 11/06/2023) Active Problems Problem Noted Date Diagnosed Date [...] as of this encounter (statuses as of 11/06/2023) Resolved Problems Problem Noted Date Diagnosed Date [...] as of this encounter (statuses as of 11/06/2023) Immunizations Name Administration Dates Next Due COVID-19 mRNA, LNP-s, No Pre serve, 2-Dose Series ([employer]) 10/03/2020,09/12/2020 H1N1 2009 Influenza, IM 05/03/2009 Hepatitis [...] 08/16/2023 Does the household have a re lar source of income? (Household - for ages [...] encounter Miscellaneous Notes * Telephone Encounter - Richard Persaud [facility] - 11/06/2023 10:03 PM EDT Signed Prescriptions: Disp Refills metFORMIN HCl 1000 MG Oral Tablet (Glucoph*180 Ta*2 Sig: TAKE 1 TABLET BY MOUTH TWICE A DAY WITH MORNING MEAL AND EVENING MEALAuthorizing Provider: RIGO HOLMAN User: RICHARD PERSAUD documented in this encounter Plan of Treatment Upcoming Encounters Date Type Department Care Team (Late st Contact Info) Description 11/16/2023 1:00 PM EDT Telemedicine General Surgery, [facility] 132 [facility] [place] [address] Rosa Elena Faith MD [address] [place] [address] 11/25/2023 11:30 AM EDT Office Visit Pharmacy, [facility] 132 [facility] [place] [address] [facility] 132 [facility] [place] [address] 12/29/2023 2:40 PM EDT Office Visit Family Practice [facility] 132 [facility] [place] [address] Rigo Holman MD [address] [place] [address] 02/02/2024 10:00 AM EDT Laboratory [facility] [place] [address] [place] [phone] Cecilia Mayen [address] [address] 02/09/2024 1:45 PM EDT Office Visit Hematology/Oncology [facility] 200 [facility] [place] [phone] Marciano Pagan MD 200 [facility] [place] [address] 02/28/2024 2:00 PM EST Office Visit Cardiology, [facility] [address] [place] [address] Rosa Elena Ko PA-C [address] [place] [address] 05/11/2024 2:00 PM EST Office Visit Care at Home [address] [place], [place] [phone] Awa Hurd PA-C [address] [place] [address] 08/23/2024 4:00 PM EDT Office Visit Family Practice [facility] [address] [place] [address] Rigo Holman MD [address] [place] [address] Scheduled Procedures Name Priority Associated Diagnoses Date/Ti me COLONOSCOPY FLEXIBLE PROXIMAL DIAGNOSTIC Recall History of anal cancer Health Maintenance Due Date Last Done Comments DISCUSS TOBACCO CESSATION (REFER TO SMARTSET #1584) 1955 Alpha-1 Antitrypsin 11/29/1973 Cologuard 11/29/2000 Fecal [...] 05/13/2021, 020 04/2021, 06/14/2018, Additional history exists *CXR OR [...] D LEVEL ONCE IN A LIFETIME-USE SMARTSET# 04599 Completed 01/23/2019, 08/10/2017, 07/06/2016, Additional history exists [...] this encounter Medical Devices Implanted Type Area Missile Facilities Repairer Device Identifier Shelf Expiration Date Model / Serial / Lot Headless Compression Screw Implanted:Qty: 1 on 07/26/2020 by South Mtz MD at OR [facility] Left: Finger AR-8725-24 H / / Description:left middle fing er Ascesion Silicone Pip Finger Implant Implanted:Qty: 1 on 07/26/2020 by South Mtz MD at OR [facility] Left: Finger 06/09/2022 [id number]-520-1 -[id number] / / [id number] Description:middle finger documented as of this encounter Visit Diagnoses Diagnosis 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 Care Teams Complex Commercial Litigation Paralegal Relationship Specialty Start Date End Date Rigo Holman MD [address] [place] [address] PCP - General Family Medicine 07/26/20 documented as of this encounter
--- OUTSIDE RECORDS SUMMARY | 2023-12-24 04:02 | External Medical Summary | Summary of Care ---
Author Name Unknown Organization [facility] Address [address] [place] [address] Phone [phone] Care Team Providers Care Jewel Bearing Facer Name Role Phone Rigo Holman MD Primary Care Provider [phone] Reason for Visit * Reason Onset Date Comments Medication Refill 10/26/2023 Encounter Details Date Type Department Care Team (Late st Contact Info) Description 10/26/2023 Refill Pharmacy, [facility] [address] [facility] [place] [address] Rigo Holman MD [address] [address] Allergies Active Allergy Reactions Criticality Noted Date Comments Adhesive Tape Itching,Rash 07/29/2016 Paper tape is fine documented as of this encounter (statuses as of 10/26/2023) Medications Medication Sig Dispensed Refills Start Date [...] OR WHEEZING. 18 g 5 04/15/2023 Active traZODone HCl 50 MG Oral Tablet [...] at bedtime. 90 Tablet 3 08/23/2023 Active Ondansetron HCl 8 MG Oral Tablet (Zofran)Indicatio ns:Anal cancer (HCC) Take 1 Tablet by mouth every 8 hours as needed for Nausea. 30 Tablet 3 08/23/2023 Active Lidocaine Viscous HCl [...] FOR PAIN 90 Tablet 1 10/08/2023 Active HYDROmorphone HCl 8 MG Oral TabletIndications :Anal squamous cell carcinoma (HCC) Take 0.5 Tablets by mouth every 4 hours as needed for Pain, Severe or Pain, Breakthrough. 30 Tablet 10/18/2023 Active Morphine Sulfate ER 15 MG Oral [...] before bedtime. 90 Capsule 3 10/26/2023 Active Gabapentin 300 MG Oral Capsule (Neurontin) Take 1 Capsule by mouth in the morning and 1 Capsule at noon and 1 Capsule before bedtime. 90 Capsule 3 09/23/2023 Discontinue d(Refill) documented as of this encounter (statuses as of 10/26/2023) Active Problems Problem Noted Date Diagnosed Date [...] as of this encounter (statuses as of 10/26/2023) Resolved Problems Problem Noted Date Diagnosed Date [...] as of this encounter (statuses as of 10/26/2023) Immunizations Name Administration Dates Next Due COVID-19 mRNA, LNP-s, No Pre serve, 2-Dose Series ([employer]) 10/03/2020,09/12/2020 H1N1 2009 Influenza, IM 05/03/2009 Hepatitis [...] No 08/16/2023 Does the household have a [facility] source of income? (Household - for ages [...] Miscellaneous Notes * Telephone Encounter - Guillermina Marquez, [facility] - 10/26/2023 8:53 AM EDT Signed Prescriptions: Disp Refills Gabapentin 300 MG Oral Capsule (Neurontin) 90 Cap*3 Sig: Take 1 Capsule by mouth in the morning and 1 Capsule at noon and 1 Capsule before bedtime.Authorizing Provider: RIGO HOLMAN User: GUILLERMINA MARQUEZ documented in this encounter Plan of Treatment Upcoming Encounters Date Type Department Care Team (Late st Contact Info) Description 11/16/2023 1:15 PM EDT Office Visit General Surgery, [facility] 132 [facility] [place] [address] Rosa Elena Faith MD [address] [place] [address] 11/25/2023 11:30 AM EDT Office Visit Pharmacy, [facility] 132 [facility] [place] [address] [facility] 132 [facility] [place] [address] 12/29/2023 2:40 PM EDT Office Visit Family Practice [facility] 132 [facility] [place] [address] Rigo Holman MD [address] [place] [address] 02/02/2024 10:00 AM EDT Laboratory Laboratory [facility] [address] [place] [phone] Cecilia Mayen [address] [place] [address] 02/09/2024 1:45 PM EDT Office Visit Hematology/Oncology [facility] 200 [facility] [place] [address] Marciano Pagan MD 200 [facility] [place], [place] [address] 02/28/2024 2:00 PM EST Office Visit Cardiology, [facility] [address] [facility] [place] [address] Rosa Elena Ko PA-C 132 [place] [address] 05/11/2024 2:00 PM EST Office Visit Care at Home [address] [place] [address] Awa Hurd PA-C [address] [place] [address] 08/23/2024 4:00 PM EDT Office Visit Family Practice [facility] [place] [address] Rigo Holman MD [facility] [place] [address] Scheduled Procedures Name Priority Associated Diagnoses Date/Ti [...] D LEVEL ONCE IN A LIFETIME-USE SMARTSET# [id number] Completed 01/23/2019, 08/10/2017, 07/06/2016, Additional history exists [...] this encounter Medical Devices Implanted Type Area Transit Worker Device Identifier Shelf Expiration Date Model / Serial / Lot Headless Compression Screw Implanted:Qty: 1 on 07/26/2020 by South Mtz MD at OR [facility] Left: Finger AR-8725-24 H / / Description:left middle fing er Ascesion Silicone Pip Finger Implant Implanted:Qty: 1 on 07/26/2020 by South Mtz MD at OR [facility] Left: Finger 06/09/2022 SPIP-520-1 -[id number] / / [id number] Description:middle finger documented as of this encounter [...] and were consensually agreed upon. Care Teams Jewel Bearing Facer Relationship Specialty Start Date End Date Rigo Holman MD [address] [place] [address] PCP - General Family Medicine 07/26/20 documented as of this encounter
--- OUTSIDE RECORDS SUMMARY | 2023-12-24 04:02 | External Medical Summary | Summary of Care ---
Author Name Unknown Organization [facility] Address [address] [place] [address] Phone [phone] Care Team Providers Care Wool Shearer Name Role Phone Rigo Holman MD Primary Care Provider [phone] Reason for Referral * Medication Prior Authorization - Pending Review Specialty Diagnoses / Procedures Referred By Contac t Referred To Contact Diagnoses Anal cancer (HCC) Alize Linares, [facility] [address] [place] [address] Referral ID Status Reason Start Date Expiration Date V isits Requested Visits Authorized [id number] Pending Review 999 999 Reason for Visit * Reason Onset Date Comments Medication Refill 10/26/2023 Encounter Details Date Type Department Care Team (Late st Contact Info) Description 10/26/2023 Refill Family Practice [facility] [address] [place] [address] [address] Rigo Holman MD [address] [place] [address] Anal cancer (HCC) Allergies Active Allergy Reactions Criticality Noted Date Comments Adhesive Tape Itching,Rash 07/29/2016 Paper tape is fine documented as of this encounter (statuses as of 10/27/2023) Medications Medication Sig Dispensed Refills Start Date [...] with food. 100 Tab 5 12/18/2016 Active [facility] L[facility] 33G MISC Tests up to four times a day. DX code: 250.00 100 Each 11 05/22/2019 Active FindProz Ultra In Vitro Strip (Glucose Blood) USE [...] for Nausea. 30 Tablet 3 10/27/2023 Active Ondansetron HCl 8 MG Oral Tablet (Zofran)Indicatio ns:Anal cancer (HCC) Take 1 Tablet by mouth every 8 hours as needed for Nausea. 30 Tablet 3 08/23/2023 Discontinue d(Refill) documented as of this encounter (statuses as of 10/27/2023) Active Problems Problem Noted Date Diagnosed Date [...] as of this encounter (statuses as of 10/27/2023) Resolved Problems Problem Noted Date Diagnosed Date [...] as of this encounter (statuses as of 10/27/2023) Immunizations Name Administration Dates Next Due COVID-19 [...] No 08/16/2023 Does the household have a [facility] healthcare [facility] source of income? (Household - for ages [...] encounter Miscellaneous Notes * Telephone Encounter - Alize Linares RPh - 10/27/2023 11:37 AM EDTSigned Prescriptions: Disp Refills Ondansetron HCl 8 MG Oral Tablet (Zofran) 30 Tab*3 Sig: Take 1 Tablet by mouth every 8 hours as needed for Nausea.Authorizing Provider: RIGO HOLMANOrderingUser: ALIZE LINARES documented in this encounter Plan of Treatment Upcoming Encounters Date Type Department Care Team (Late st Contact Info) Description 11/16/2023 1:15 PM EDT Office Visit General Surgery, [facility] [address] [place] [address] Rosa Elena Faith MD [address] [place] [address] 11/25/2023 11:30 AM EDT Office Visit Pharmacy, [facility] [address] [place] [address] [address] [facility] [place] [address] [place] [address] 12/29/2023 2:40 PM EDT Office Visit Family Practice [facility] [address] [place] [address] Rigo Holman MD [address] [place] [address] 02/02/2024 10:00 AM EDT Laboratory Laboratory [facility] [address] [place] [phone] [facility] [address] [place] [address] 02/09/2024 1:45 PM EDT Office Visit Hematology/Oncology [facility] [address] [place] [phone] Marciano Pagan MD 200 [facility] [place] [address] 02/28/2024 2:00 PM EST Office Visit Cardiology, [facility] [address] [place] [address] Rosa Elena Ko PA-C [address] [place] [address] 05/11/2024 2:00 PM EST Office Visit Care at Home [address] [place], [place] [phone] Awa Hurd PA-C [address] [place] [address] 08/23/2024 4:00 PM EDT Office Visit Family Practice [facility] [address] [place] [address] Rigo Holman MD [address] [place] [address] Scheduled Procedures Name Priority Associated Diagnoses Date/Ti [...] D LEVEL ONCE IN A LIFETIME-USE SMARTSET# [id number] Completed 01/23/2019, 08/10/2017, 07/06/2016, Additional history exists [...] this encounter Medical Devices Implanted Type Area Bundle Helper Device Identifier Shelf Expiration Date Model / Serial / Lot Headless Compression Screw Implanted:Qty: 1 on 07/26/2020 by South Mtz MD at OR [facility] Left: Finger AR-8725-24 H / / Description:left middle fing er Ascesion Silicone Pip Finger Implant Implanted:Qty: 1 on 07/26/2020 by South Mtz MD at OR [facility] Left: Finger 06/09/2022 [facility] -WW / / [id number] Description:middle finger documented as of this encounter [...] and were consensually agreed upon. Care Teams Wool Shearer Relationship Specialty Start Date End Date Rigo Holman MD [address] [place] [address] PCP - General Family Medicine 07/26/20 documented as of this encounter
--- OUTSIDE RECORDS SUMMARY | 2023-12-24 04:02 | External Medical Summary | Summary of Care ---
Author Name Unknown Organization [facility] Address [address] [place] [address] Phone [phone] Care Team Providers Care Bacteriologist Fishery Name Role Phone Sukh Holman MD Primary Care Provider [phone] [phone] Reason for Visit * Reason Onset Date Comments Medication Refill 10/30/2023 Encounter Details Date Type Department Care Team (Late st Contact Info) Description 10/30/2023 Refill Hematology/Oncology [facility] [address] [place] [phone] Marciano Pagan MD [address] [place] [address] Anal squamous cell carcinoma (HCC) Allergies Active [...] 10/27/2023 Active HYDROmorphone HCl 8 MG Oral TabletIndications :Anal squamous cell carcinoma (HCC) Take 0.5 Tablets by mouth every 4 hours as needed for Pain, Severe or Pain, Breakthrough. 30 Tablet 11/01/2023 Active HYDROmorphone HCl 8 MG Oral TabletIndications :Anal squamous cell carcinoma (HCC) Take 0.5 Tablets by mouth every 4 hours as needed for Pain, Severe or Pain, Breakthrough. 30 Tablet 10/18/2023 Discontinue d(Refill) documented as of this encounter [...] mRNA, LNP-s, No Pre serve, 2-Dose Series (BitComet) 10/03/2020,09/12/2020 H1N1 2009 Influenza, IM 05/03/2009 Hepatitis [...] Telephone Encounter - Marciano Pagan MD - 11/01/2023 8:31 AM EDT E-prescribed Marciano Pagan MD Hem/Onc * Telephone Encounter - Carla Daigle RN - 11/01/2023 8:05 AM EDTPending Prescriptions: Disp Refills HYDROmorphone HCl 8 MG Oral Tablet 30 Tab*0 Sig: Take 0.5 Tablets by mouth every 4 hours as needed for Pain, Severe or Pain, Breakthrough. * Telephone Encounter - Carla Daigle RN - 11/01/2023 8:05 AM EDT Patient sent MyG "Good Evening Dr Pagan! I sent in a refill request for the Dilaudid, but here's the situation. The pharmacy only had 20 pills so I believe that I need to request the rest of the pills, but that I need to have you sent in another request. I don't know what- else they can can want, maybe our first -born child!! Let me know if you need more info! " * Telephone Encounter - Nani Morel LPN - 11/01/2023 7:15 AM EDT Refill request for Hydromorphone hcl 8 mg tabs pended below: Last Refill:10/18/2023 PDMP search: :Last filled 10/18/2023, #20 for a 7 day supply Per chart review, prescription from 10/18/2023 was written for a quantity of 30 tablets. Will contact [facility] when it opens today at 9 am to verify if last 10 were dispensed to patient. documented in this encounter Plan of Treatment Upcoming Encounters Date Type Department Care Team (Late st Contact Info) Description 11/16/2023 1:00 PM EDT Telemedicine General Surgery, [facility] 132 [facility] [place] [address] Rosa Elena Faith MD [address] [place] [address] 11/25/2023 11:30 AM EDT Office Visit Pharmacy, [facility] 132 [place] [address] [facility] [address] [place] [address] 12/29/2023 2:40 PM EDT Office Visit Family Practice [facility] 132 [place] [address] Sukh Holman MD 132 [place] [address] 02/02/2024 10:00 AM EDT Laboratory Laboratory [facility] [address] [place] [phone] [facility]ilia [facility] [address] [place] [address] 02/09/2024 1:45 PM EDT Office Visit Hematology/Oncology [facility] [place] [address] [place] [phone] Marciano Pagan MD 200 [facility] [place] [address] 02/28/2024 2:00 PM EST Office Visit Cardiology, [facility] 132 [facility] [place] [address] Rosa Elena Ko PA-C [address] [place] [address] 05/11/2024 2:00 PM EST Office Visit Care at Home [address], [place] [phone] Awa Hurd PA-C [address] [place] [address] 08/23/2024 4:00 PM EDT Office Visit Family [facility] [address] [place] [address] Sukh Holman MD [address] [place] [address] Scheduled Procedures Name Priority Associated Diagnoses Date/Ti me COLONOSCOPY FLEXIBLE PROXIMAL DIAGNOSTIC Recall History of anal cancer Health Maintenance Due Date Last Done Comments DISCUSS TOBACCO CESSATION (REFER TO SMARTSET #9235) 1955 Alpha-1 Antitrypsin 11/29/1973 Cologuard 11/29/2000 Fecal [...] 05/13/2023 05/13/2021, 02/04/2021, 06/14/2018, Additional history exists *CXR OR CT [...] D LEVEL ONCE IN A LIFETIME-USE SMARTSET# 88616 Completed 01/23/2019, 08/10/2017, 07/06/2016, Additional history exists [...] this encounter Medical Devices Implanted Type Area Solar Project Coordination Specialist Device Identifier Shelf Expiration Date Model / Serial / Lot Headless Compression Screw Implanted:Qty: 1 on 07/26/2020 by South Mtz MD at [facility] Left: Finger AR-8725-24 H / / Description:left middle fing er Ascesion Silicone Pip Finger Implant Implanted:Qty: 1 on 07/26/2020 by South Mtz MD at OR [facility] Left: Finger 06/09/2022 [id number]-520-1 -[id number] / / [id number] Description:middle finger documented as of this encounter [...] and were consensually agreed upon. Care Teams Bacteriologist Fishery Relationship Specialty Start Date End Date Sukh Holman MD [address] [place] [address] PCP - General Family Medicine 4/16/21 documented as of this encounter
--- OUTSIDE RECORDS SUMMARY | 2023-12-24 04:02 | External Medical Summary | Summary of Care ---
Author Name Unknown Organization [facility] Address [address] [place] [address] Phone [phone] Care Team Providers Care Blaster Helper Name Role Phone Rigo Holman MD Primary Care Provider [phone] Reason for Visit * Reason Comments eRx-Medication Refill Encounter Details Date Type Department Care Team (Late st Contact Info) Description 10/27/2023 Refill Family Practice [facility] [address] [facility] [place] [address] Rigo Holman MD [address] [facility] [place] [address] Persistent insomnia Allergies Active Allergy Reactions Criticality Noted Date [...] OR WHEEZING. 18 g 5 4 Active metFORMIN HCl 1000 MG Oral [...] FOR PAIN 90 Tablet 1 4 Active HYDROmorphone HCl 8 MG Oral TabletIndications :Anal squamous cell carcinoma (HCC) Take 0.5 Tablets by mouth every 4 hours as needed for Pain, Severe or Pain, Breakthrough. 30 Tablet 4 Active Morphine Sulfate ER 15 MG [...] AT BEDTIME 90 Tablet 3 4 Active traZODone HCl 50 MG Oral Tablet (Desyrel)Indicati ons:Persistent insomnia TAKE 1 TABLET BY MOUTH EVERYDAY AT BEDTIME 90 Tablet 1 4 10/27/19 24 Discontinued documented as of this encounter [...] mRNA, LNP-s, No Pre serve, 2-Dose Series (onlinetours) 10/03/2020,09/12/2020 H1N1 2009 Influenza, IM 05/03/2009 Hepatitis [...] encounter Miscellaneous Notes * Telephone Encounter - Quinn Castañeda [facility] - 10/27/2023 5:08 PM EDTSigned Prescriptions: Disp Refills traZODone HCl 50 MG Oral Tablet (Desyrel) 90 Tab*3 Sig: TAKE 1 TABLET BY MOUTH EVERYDAY AT BEDTIMEAuthorizing Provider: RIGO HOLMAN User: QUINN CASTAÑEDA Electronically signed by Quinn Castañeda, [facility] at 10/27/2023 5:08 PM EDT documented in this encounter Plan of Treatment Upcoming Encounters Date Type Department Care Team (Late st Contact Info) Description 11/16/2023 1:15 PM EDT Office Visit General Surgery, [facility] 132 [facility] [place] [address] Rosa Elena Faith MD [address] [place] [address] 11/25/2023 11:30 AM EDT Office Visit Pharmacy, [facility] 132 [facility] [place] [address] [facility] 132 [place] [address] 12/29/2023 2:40 PM EDT Office Visit Family Practice [facility] 132 [facility] [place] [address] Rigo Holman MD 132 [place] [address] 02/02/2024 10:00 AM EDT Laboratory Laboratory [place] [address] [place], [place] [phone] [facility] [address] [place] [address] 02/09/2024 1:45 PM EDT Office Visit Hematology/Oncology [facility] 200 [facility] [place] [phone] Marciano Pagan MD 200 [facility] [place] [address] 02/28/2024 2:00 PM EST Office Visit Cardiology, [facility] [address] [place] [address] Rosa Elena Ko PA-C 132 [facility] [place] [address] 05/11/2024 2:00 PM EST Office Visit Care at Home [address] [place], [place] [phone] Awa Hurd PA-C [address] [place], [place] [phone] 08/23/2024 4:00 PM EDT Office Visit Family Practice [facility] [address] [place] [address] Rigo Holman MD [address] [place] [address] Scheduled Procedures Name Priority Associated Diagnoses Date/Ti me COLONOSCOPY FLEXIBLE PROXIMAL DIAGNOSTIC Recall History of anal cancer Health Maintenance Due Date Last Done Comments DISCUSS TOBACCO CESSATION (REFER TO SMARTSET #3146) 1955 Alpha-1 Antitrypsin 11/29/1973 Cologuard 11/29/2000 Fecal [...] D LEVEL ONCE IN A LIFETIME-USE SMARTSET# 83331 Completed 01/23/2019, 08/10/2017, 07/06/2016, Additional history exists [...] this encounter Medical Devices Implanted Type Area Curator Of Photography And Prints Device Identifier Shelf Expiration Date Model / Serial / Lot Headless Compression Screw Implanted:Qty: 1 on 07/26/2020 by South Mtz MD at OR [facility] Left: Finger AR-8725-24 H / / Description:left middle fing er Ascesion Silicone Pip Finger Implant Implanted:Qty: 1 on 07/26/2020 by South Mtz MD at OR [facility] Left: Finger 06/09/2022 [id number]-520-1 -[id number] / / [id number] Description:middle finger documented as of this encounter Visit Diagnoses Diagnosis Persistent insomnia Persistent disorder of initiating or maintaining sleep documented in this encounter Advance Directives * [...] and were consensually agreed upon. Care Teams Blaster Helper Relationship Specialty Start Date End Date Rigo Holman MD [address] [place] [address] PCP - General Family Medicine 07/26/20 documented as of this encounter
--- OUTSIDE RECORDS SUMMARY | 2023-12-24 04:02 | External Medical Summary | Summary of Care ---
Author Name Unknown Organization [facility] Address [address] [place] [address] Phone [phone] Care Team Providers Care Desulphurizer Operator Name Role Phone Rigo Aviles MD Primary Care Provider [phone] [phone] Reason for Visit * Reason Onset Date Comments Medication Refill 10/21/2023 Encounter Details Date Type Department Care Team (Late st Contact Info) Description 10/21/2023 Refill Pharmacy, [facility] 132 [facility] [place] [address] Marciano Pagan MD [address] [place] [address] Anal cancer (HCC); Anal squamous cell carcinoma (HCC) Allergies Active Allergy Reactions Criticality Noted Date Comments Adhesive Tape Itching,Rash 07/29/2016 Paper tape is fine documented as of this encounter (statuses as of 10/21/2023) Medications Medication Sig Dispensed Refills Start Date [...] fluid retention). 90 Tablet 3 09/20/2023 Active Gabapentin 300 MG Oral Capsule (Neurontin) Take 1 Capsule by mouth in the morning and 1 Capsule at noon and 1 Capsule before bedtime. 90 Capsule 3 09/23/2023 Active Meloxicam 15 MG Oral Tablet (Mobic)Indication [...] Max 45 tablets/month.. 60 Tablet 10/21/2023 Active Morphine Sulfate ER 15 MG Oral Tablet Extended Release (Ms Contin)Indication s:Anal cancer (HCC),Anal squamous cell carcinoma (HCC) Take 1 Tablet by mouth in the morning and 1 Tablet before bedtime. Max 45 tablets/month.. 60 Tablet 09/07/2023 Discontinue d(Refill) documented as of this encounter (statuses as of 10/21/2023) Active Problems Problem Noted Date Diagnosed Date [...] as of this encounter (statuses as of 10/21/2023) Resolved Problems Problem Noted Date Diagnosed Date [...] as of this encounter (statuses as of 10/21/2023) Immunizations Name Administration Dates Next Due COVID-19 mRNA, LNP-s, No Pre serve, 2-Dose Series (Imaging3) 10/03/2020,09/12/2020 H1N1 2009 Influenza, IM 05/03/2009 Hepatitis [...] Miscellaneous Notes * Telephone Encounter - Rigo Aviles MD - 10/21/2023 4:15 PM EDTSigned Prescriptions: Disp Refills Morphine Sulfate ER 15 MG Oral Tablet Exte*60 Tab*0 Sig: Take 1 Tablet by mouth in the morning and 1 Tablet before bedtime. Max 45 tablets/month.. Authorizing Provider: RIGO AVILES * Telephone Encounter - Elliott Anderson [facility] - 10/21/2023 12:52 PM EDT Pending Prescriptions: Disp Refills Morphine Sulfate ER 15 MG Oral Tablet Exte*60 Tab*0 Sig: Take 1 Tablet by mouth in the morning and 1 Tablet before bedtime. Max 45 tablets/month.. * Telephone Encounter - Elliott Anderson [facility] - 10/21/2023 12:50 PM EDT Patient following with MTM for chronic pain. PDMP reviewed and is appropriate. Order pended to PCP for consideration. Elliott Anderson, PharmD, [facility] Auto Slip Cover Installer Clinical Pharmacist 10/21/2023, 12:52 PM documented in this encounter Plan of Treatment Upcoming Encounters Date Type Department Care Team (Late st Contact Info) Description 11/16/2023 1:15 PM EDT Office Visit General Surgery, [facility] 132 [facility] [place] [address] Rosa Elena Faith MD [address] [place] [address] 11/25/2023 11:30 AM EDT Office Visit Pharmacy, [facility] [address] [facility] [address] [facility] 132 [facility] [place] [address] 02/02/2024 10:00 AM EDT Laboratory Laboratory [facility] [address] [place] [phone] [place], [facility] [address] [place] [address] 02/09/2024 1:45 PM EDT Office Visit Hematology/Oncology [facility] [address] [place] [phone] Marciano Pagan MD [address] [place] [address] 02/28/2024 2:00 PM EST Office Visit Cardiology, [facility] 132 [facility] [address] Rosa Elena Ko PA-C [facility] [address] 05/11/2024 2:00 PM EST Office Visit Care at Home [address] [facility] [place] [address] Awa Hurd PA-C 100 [place] [facility] [place] [address] 08/23/2024 4:00 PM EDT Office Visit Family Practice [facility] [place] [address] Rigo Aviles MD [address] [place] [address] Scheduled Procedures Name Priority Associated Diagnoses Date/Ti me COLONOSCOPY FLEXIBLE PROXIMAL DIAGNOSTIC Recall History of anal cancer Health Maintenance Due Date Last Done Comments DISCUSS TOBACCO CESSATION (REFER TO SMARTSET #5169) 1955 Alpha-1 Antitrypsin 11/29/1973 Cologuard 11/29/2000 Fecal [...] D LEVEL ONCE IN A LIFETIME-USE SMARTSET# 50087 Completed 01/23/2019, 08/10/2017, 07/06/2016, Additional history exists Zoster Vaccines Completed 01/22/2020, 04/13, 10/10/2015 RETIRED - COLONOSCOPY-EVERY 5 YRS AGES 18-100 Discontinued 08/23/2020, 08/23/2020, 06/24/2016, Additional history exists HPV (Gardasil) Vaccine Aged Out No lo nger eligible based on patient's age to complete this topic documented as of this encounter Medical Devices Implanted Type Area Health Informatics Specialist Device Identifier Shelf Expiration Date Model / Serial / Lot Headless Compression Screw Implanted:Qty: 1 on 07/26/2020 by South Mtz MD at OR [facility] Left: Finger AR-8725-24 H / / Description:left middle fing er Ascesion Silicone Pip Finger Implant Implanted:Qty: 1 on 07/26/2020 by South Mtz MD at OR [facility] Left: Finger 06/09/2022 SPIP-520-1 -[id number] / / [id number] Description:middle finger documented as of this encounter [...] and were consensually agreed upon. Care Teams Desulphurizer Operator Relationship Specialty Start Date End Date Rigo Aviles MD [address] [place] [address] PCP - General Family Medicine 07/26/20 documented as of this encounter
--- OUTSIDE RECORDS SUMMARY | 2023-12-24 04:03 | External Medical Summary | Summary of Care ---
Author Name Unknown Organization [facility] Address [address] [place] [address] Phone [phone] Care Team Providers Care Windsmith Name Role Phone Sukh Holman MD Primary Care Provider [phone] Reason for Visit * Reason Onset Date Comments Medication Refill 10/14/2023 Encounter Details Date Type Department Care Team (Late st Contact Info) Description 10/14/2023 Refill Hematology/Oncology [facility] 200 [facility] [phone] Marciano Pagan MD 200 [facility] [address] Anal squamous cell carcinoma (HCC) Allergies Active Allergy Reactions Criticality Noted Date Comments Adhesive Tape Itching,Rash 07/29/2016 Paper tape is fine documented as of this encounter (statuses as of 10/15/2023) Medications Medication Sig Dispensed Refills Start Date [...] for Pain, Severe. 100 mL 08/23/2023 Active Morphine Sulfate ER 15 MG Oral Tablet Extended Release (Ms Contin)Indication s:Anal cancer (HCC),Anal squamous cell carcinoma (HCC) Take 1 Tablet by mouth in the morning and 1 Tablet before bedtime. Max 45 tablets/month.. 60 Tablet 09/07/2023 Active Alendronate Sodium 70 MG Oral Tablet [...] 90 Tablet 1 10/08/2023 Active HYDROmorphone HCl 4 MG Oral Tablet (Dilaudid)Indicat ions:Anal squamous cell carcinoma (HCC) Take 1 Tablet by mouth every 4 hours as needed for Pain, Moderate. 60 Tablet 10/15/2023 Active HYDROmorphone HCl 4 MG Oral Tablet (Dilaudid)Indicat ions:Anal squamous cell carcinoma (HCC) Take 1 Tablet by mouth every 4 hours as needed for Pain, Moderate. 60 Tablet 09/29/2023 Discontinue d(Refill) documented as of this encounter (statuses as of 10/15/2023) Active Problems Problem Noted Date Diagnosed Date [...] as of this encounter (statuses as of 10/15/2023) Resolved Problems Problem Noted Date Diagnosed Date [...] as of this encounter (statuses as of 10/15/2023) Immunizations Name Administration Dates Next Due COVID-19 mRNA, LNP-s, No Pre serve, 2-Dose Series (KnewCoin) 10/03/2020,09/12/2020 H1N1 2009 Influenza, IM 05/03/2009 Hepatitis [...] Telephone Encounter - Marciano Pagan MD - 10/15/2023 11:50 AM EDT E-prescribed Marciano Pagan MD Hem/Onc * Telephone Encounter - Nani Morel LPN - 10/15/2023 10:48 AM EDTPending Prescriptions: Disp Refills HYDROmorphone HCl 4 MG Oral Tablet (Dilaud*60 Tab*0 Sig: Take 1 Tablet by mouth every 4 hours as needed for Pain, Moderate. * Telephone Encounter - Nani Morel LPN - 10/15/2023 10:45 AM EDT Refill request for Hydromorphone hcl 4 mg tabs pended below: Last Refill:09/29/2023 PDMP Search: Patient not found in [place] PDMP database. Unable to complete search. Last refill #60 tablets: calculates to a 10-day supply. Last seen:08/10/2023 Next Appt.:02/09/2024 documented in this encounter Plan of Treatment Upcoming Encounters Date Type Department Care Team (Late st Contact Info) Description 11/16/2023 1:15 PM EDT Office Visit General Surgery, [facility] 132 [facility] [place] [address] Rosa Elena Faith MD [address] [place], [place] [phone] 11/25/2023 11:30 AM EDT Office Visit Pharmacy, [facility] [address] [place] [address] [facility] [place] [address] 02/02/2024 10:00 AM EDT Laboratory Laboratory [facility] [address] [place] [phone] [facility] 200 [facility] [place] [address] 02/09/2024 1:45 PM EDT Office Visit Hematology/Oncology [facility] [place] [address] [place] [phone] Marciano Paagn MD [address] [place] [address] 02/28/2024 2:00 PM EST Office Visit Cardiology, [facility] 132 [facility] [place] [address] Rosa Elena Ko PA-C 132 [facility] [place] [address] 05/11/2024 2:00 PM EST Office Visit Care at Home [address] [place], [place] [phone] Awa Hurd PA-C [address] [place] [address] 08/23/2024 4:00 PM EDT Office Visit Family Practice [facility] [address] [place] [address] Sukh Holman MD [address] [place] [address] Scheduled Procedures Name Priority Associated Diagnoses Date/Ti me COLONOSCOPY FLEXIBLE PROXIMAL DIAGNOSTIC Recall History of anal cancer Health Maintenance Due Date Last Done Comments DISCUSS TOBACCO CESSATION (REFER TO SMARTSET #5766) 1955 Alpha-1 Antitrypsin 11/29/1973 Cologuard 11/29/2000 Fecal [...] D LEVEL ONCE IN A LIFETIME-USE SMARTSET# 75537 Completed 01/23/2019, 08/10/2017, 07/06/2016, Additional history exists Zoster Vaccines Completed 01/22/2020, 04/13, 10/10/2015 RETIRED - COLONOSCOPY-EVERY 5 YRS AGES 18-100 Discontinued 08/23/2020, 08/23/2020, 06/24/2016, Additional history exists HPV (Gardasil) Vaccine Aged Out No lo nger eligible based on patient's age to complete this topic documented as of this encounter Medical Devices Implanted Type Area Bus Trolley And Taxi Instructor Device Identifier Shelf Expiration Date Model / Serial / Lot Headless Compression Screw Implanted:Qty: 1 on 07/26/2020 by South Mtz MD at OR [facility] Left: Finger AR-8725-24 H / / Description:left middle fing er Ascesion Silicone Pip Finger Implant Implanted:Qty: 1 on 07/26/2020 by South Mtz MD at [facility] Left: Finger 06/09/2022 SPIP-520-1 -[id number] / / [id number] Description:middle finger documented as of this encounter [...] and were consensually agreed upon. Care Teams Windsmith Relationship Specialty Start Date End Date Sukh Holman MD 132 [facility] [place] [address] PCP - General Family Medicine 07/26/20 documented as of this encounter
--- OUTSIDE RECORDS SUMMARY | 2023-12-24 04:03 | External Medical Summary | Summary of Care ---
Author Name Unknown Organization [facility] Address [address] [place] [address] Phone [phone] Care Team Providers Care Awning Craftsman Name Role Phone Sukh Holman MD Primary Care Provider [phone] Reason for Visit * Reason Onset Date Comments Medication Refill 10/18/2023 Encounter Details Date Type Department Care Team (Late st Contact Info) Description 10/18/2023 Refill Hematology/Oncology [facility] [address] [place] [address] Marciano Pagan MD [address] [place] [address] Anal squamous cell carcinoma (HCC)* Allergies Active Allergy Reactions Criticality Noted Date Comments Adhesive Tape Itching,Rash 07/29/2016 Paper tape is fine documented as of this encounter (statuses as of 10/18/2023) Medications Medication Sig Dispensed Refills Start Date [...] OR WHEEZING. 18 g 5 4 Active traZODone HCl 50 MG Oral [...] at bedtime. 90 Tablet 3 4 Active Ondansetron HCl 8 MG Oral Tablet (Zofran)Indicatio ns:Anal cancer (HCC) Take 1 Tablet by mouth every 8 hours as needed for Nausea. 30 Tablet 3 4 Active Lidocaine Viscous HCl 2 % Mouth/Throat Solution Swish and spit 15 mL 2 times a day as needed for Pain, Severe. 100 mL 4 Active Morphine Sulfate ER 15 MG Oral Tablet Extended Release (Ms Contin)Indication s:Anal cancer (HCC),Anal squamous cell carcinoma (HCC) Take 1 Tablet by mouth in the morning and 1 Tablet before bedtime. Max 45 tablets/month.. 60 Tablet 4 Active Alendronate Sodium 70 MG Oral Tablet (Fosamax)Indicati ons:weekly on sundays TAKE 1 TABLET (70 MG) BY MOUTH ONCE A WEEK 12 Tablet 1 4 Active Furosemide 40 MG Oral Tablet (Lasix) Take 1 Tablet by mouth as needed for Other (swelling, fluid retention). 90 Tablet 3 4 Active Gabapentin 300 MG Oral Capsule (Neurontin) Take 1 Capsule by mouth in the morning and 1 Capsule at noon and 1 Capsule before bedtime. 90 Capsule 3 4 Active Meloxicam 15 MG Oral Tablet (Mobic)Indication s:Fibromyalgia TAKE 1 TABLET BY MOUTH EVERY DAY FOR PAIN 90 Tablet 1 4 Active HYDROmorphone HCl 8 MG Oral TabletIndications :Anal squamous cell carcinoma (HCC) Take 0.5 Tablets by mouth every 4 hours as needed for Pain, Severe or Pain, Breakthrough. 30 Tablet 4 Active HYDROmorphone HCl 4 MG Oral Tablet (Dilaudid)Indicat ions:Anal squamous cell carcinoma (HCC) Take 1 Tablet by mouth every 4 hours as needed for Pain, Moderate. 60 Tablet 4 10/18/19 24 Discontinued documented as of this encounter (statuses as of 10/18/2023) Active Problems Problem Noted Date Diagnosed Date [...] as of this encounter (statuses as of 10/18/2023) Resolved Problems Problem Noted Date Diagnosed Date [...] as of this encounter (statuses as of 10/18/2023) Immunizations Name Administration Dates Next Due COVID-19 mRNA, LNP-s, No Pre serve, 2-Dose Series (MOD Systems) 10/03/2020,09/12/2020 H1N1 2009 Influenza, IM 05/03/2009 Hepatitis [...] Telephone Encounter - Marciano Pagan MD - 10/18/2023 3:17 PM EDT E-prescribed Marciano Pagan MD Hem/Onc * Telephone Encounter - Rohan Pires RN - 10/18/2023 11:44 AM EDT Pt pharmacy is out of 2mg tablets, requesting a script for 8mg as they have these in stock per the patient. Pt states she is out of medication at this time. Checked PDMP, no issues. documented in this encounter Plan of Treatment Upcoming Encounters Date Type Department Care Team (Late st Contact Info) Description 11/16/2023 1:15 PM EDT Office Visit General Surgery, [facility] [address] [facility] [place] [address] Rosa Elena Faith MD [address] [place] [address] 11/25/2023 11:30 AM EDT Office Visit Pharmacy, [facility] [address] [facility] [place] [address] [facility] [address] [place] [address] 02/02/2024 10:00 AM EDT Laboratory Laboratory [facility] [address] [place] [id number] [place] [facility] [address] [facility] [place] [address] 02/09/2024 1:45 PM EDT Office Visit Hematology/Oncology [facility] [place] [address] [place] [id number] Marciano Pagan MD [address] [place] [address] 02/28/2024 2:00 PM EST Office Visit Cardiology, [facility] [address] [facility] [place] [address] Rosa Elena Ko PA-C [address] [facility] [place] [address] 05/11/2024 2:00 PM EST Office Visit Care at Home [address] [place] [address] Awa Hurd PA-C [address], [place] [id number] 08/23/2024 4:00 PM EDT Office Visit Family Practice [facility] [address] [facility] [place] [address] Sukh Holman MD [address] [facility] [place] [address] Scheduled Procedures Name Priority Associated Diagnoses Date/Ti me COLONOSCOPY FLEXIBLE PROXIMAL DIAGNOSTIC Recall History of anal cancer Health Maintenance Due Date Last Done Comments DISCUSS TOBACCO CESSATION (REFER TO SMARTSET #5234) 1955 Alpha-1 Antitrypsin 11/29/1973 Cologuard 11/29/2000 Fecal [...] 05/13/2021, 020 04/2021, 06/14/2018, Additional history exists Influenza Vaccine [...] D LEVEL ONCE IN A LIFETIME-USE SMARTSET# 73932 Completed 01/23/2019, 08/10/2017, 07/06/2016, Additional history exists Zoster Vaccines Completed 01/22/2020, 04/13, 10/10/2015 RETIRED - COLONOSCOPY-EVERY 5 YRS AGES 18-100 Discontinued 08/23/2020, 08/23/2020, 06/24/2016, Additional history exists HPV (Gardasil) Vaccine Aged Out No lo nger eligible based on patient's age to complete this topic documented as of this encounter Medical Devices Implanted Type Area Field Applications Specialist Device Identifier Shelf Expiration Date Model / Serial / Lot Headless Compression Screw Implanted:Qty: 1 on 07/26/2020 by South Mtz MD at OR [facility] Left: Finger [id number]-[id number] H / / Description:left middle fing er Ascesion Silicone Pip Finger Implant Implanted:Qty: 1 on 07/26/2020 by South Mtz MD at OR [facility] Left: Finger 06/09/2022 [id number] / / [id number] Description:middle finger documented as of this encounter [...] and were consensually agreed upon. Care Teams Awning Craftsman Relationship Specialty Start Date End Date Sukh Holman MD [address] [place] [address] PCP - General Family Medicine 4/16/21 documented as of this encounter
--- OUTSIDE RECORDS SUMMARY | 2023-12-24 04:03 | External Medical Summary | Summary of Care ---
Author Name Unknown Organization [facility] Address [address] [place] [address] Phone [phone] Care Team Providers Care Billing Coordinator Name Role Phone Rigo Holman MD Primary Care Provider [phone] [phone] Reason for Visit * Reason Comments eRx-Medication Refill Encounter Details Date Type Department Care Team (Late st Contact Info) Description 10/08/2023 Refill Family Practice [facility] [address] [facility] [place] [address] Rigo Holman MD [address] [facility] [place] [address] Fibromyalgia Allergies Active Allergy Reactions Criticality Noted Date Comments Adhesive Tape Itching,Rash 07/29/2016 Paper tape is fine documented as of this encounter (statuses as of 10/08/2023) Medications Medication Sig Dispensed Refills Start Date [...] a day. DX code: 250.00 100 Each 0 Active OneTouch Ultra In Vitro Strip [...] needed for Pain, Moderate. 60 Tablet 4 Active Meloxicam 15 MG Oral Tablet (Mobic)Indication s:Fibromyalgia TAKE 1 TABLET BY MOUTH EVERY DAY FOR PAIN 90 Tablet 1 4 Active Meloxicam 15 MG Oral TabletIndications :Fibromyalgia TAKE 1 TABLET BY MOUTH EVERY DAY FOR PAIN 90 Tablet 3 3 10/08/19 24 Discontinued documented as of this encounter (statuses as of 10/08/2023) Active Problems Problem Noted Date Diagnosed Date [...] as of this encounter (statuses as of 10/08/2023) Resolved Problems Problem Noted Date Diagnosed Date [...] as of this encounter (statuses as of 10/08/2023) Immunizations Name Administration Dates Next Due COVID-19 [...] encounter Miscellaneous Notes * Telephone Encounter - Kate Grissom [facility] - 10/08/2023 10:27 AM EDT Signed Prescriptions: Disp Refills Meloxicam 15 MG Oral Tablet (Mobic) 90 Tab*1 Sig: TAKE 1 TABLET BY MOUTH EVERY DAY FOR PAINAuthorizing Provider: RIGO HOLMAN User: KATE GRISSOM MA documented in this encounter Plan of Treatment Upcoming Encounters Date Type Department Care Team (Late st Contact Info) Description 11/16/2023 1:15 PM EDT Office Visit General Surgery, [facility] [address] [place] [address] Rosa Elena Faith MD [address] [place] [address] 11/25/2023 11:30 AM EDT Office Visit Pharmacy, [address] [address] [facility] [address] [address] 02/02/2024 10:00 AM EDT Laboratory Laboratory [facility] [place] [address] [facility] [address] [address] 02/09/2024 1:45 PM EDT Office Visit Hematology/Oncology [facility] [place] [address] Marciano Pagan MD [address] [facility] [place] [address] 02/28/2024 2:00 PM EST Office Visit Cardiology, [facility] [place] [address] Rosa Elena Ko PA-C [address] [place] [address] 05/11/2024 2:00 PM EST Office Visit Care at Home [address], [place] [phone] Awa Hurd PA-C [address] [place] [address] 08/23/2024 4:00 PM EDT Office Visit Family Practice [facility] [address] [facility] [place] [address] Rigo Holman MD [address] [place] [address] Scheduled Procedures Name Priority Associated Diagnoses Date/Ti me COLONOSCOPY FLEXIBLE PROXIMAL DIAGNOSTIC Recall History of anal cancer Health Maintenance Due Date Last Done Comments DISCUSS TOBACCO CESSATION (REFER TO SMARTSET #5716) 1955 Alpha-1 Antitrypsin 11/29/1973 Cologuard 11/29/2000 Fecal [...] 05/13/2023 05/13/2021, 04/2021, 06/14/2018, Additional history exists HbA1c 02/18/2024 08/18/2023, 06/2022, [...] D LEVEL ONCE IN A LIFETIME-USE SMARTSET# [id number] Completed 01/23/2019, 08/10/2017, 07/06/2016, Additional history exists [...] this encounter Medical Devices Implanted Type Area High Pressure Boiler Operator Device Identifier Shelf Expiration Date Model / Serial / Lot Headless Compression Screw Implanted:Qty: 1 on 07/26/2020 by South Mtz MD at OR [facility] Left: Finger [id number]-[id number] H / / Description:left middle fing er Ascesion Silicone Pip Finger Implant Implanted:Qty: 1 on 07/26/2020 by South Mtz MD at [facility] Left: Finger 06/09/2022 [id number]-[id number] / / [id number] Description:middle finger documented as of this encounter [...] and were consensually agreed upon. Care Teams Billing Coordinator Relationship Specialty Start Date End Date Rigo Holman MD [address] [place] [address] PCP - General Family Medicine 07/26/20 documented as of this encounter
[2023-12-24] MEDS ORDERED: ALBUTEROL HFA 8 GM INHALER INH PRN (05:09)
[2023-12-24] MEDS ORDERED: FLUTICASONE PROPIONATE NA SPR 16 GM BTL PRN (05:09)
[2023-12-24] MEDS ORDERED: NITROGLYCERIN SL 0.4 MG/TAB TAB SL PRN (05:09)
[2023-12-24] MEDS ORDERED: HYDROmorphone INJ 0.5 MG/0.5 ML SYR IV PRN (05:09)
[2023-12-24] MEDS ORDERED: ONDANSETRON INJ 2 MG/ML 2 ML VIAL IV PRN (05:09)
[2023-12-24] MEDS: SODIUM CHLORIDE 0.9% 1,000 ML IV SCH (05:49)
[2023-12-24] MEDS: cefTRIAXone SODIUM 2,000 MG/50 ML BAG IV SCH (05:57)
[2023-12-24] MEDS: PANTOprazole 40 MG in DEXTROSE 5% MINI-B 100 ML IV SCH ×2 (05:58→17:51)
[2023-12-24] MEDS ORDERED: GLUCOSE 40% GEL 15 GM TUBE PO PRN (06:12)
[2023-12-24] MEDS ORDERED: GLUCOSE 10 TAB/TUBE PO PRN (06:12)
[2023-12-24] MEDS ORDERED: GLUCAGON FOR INJ 1 MG VIAL SQ PRN (06:12)
[2023-12-24] MEDS ORDERED: DEXTROSE 50% 50 ML SYRINGE IV PRN (06:12)
[2023-12-24] MEDS ORDERED: CARBOHYDRATES FOR HYPOGLYCEMIA PO PRN (06:12)
[2023-12-24] MEDS: INSULIN ASPART PER UNIT CHARGE SC SCH ×2 (06:27→17:10)
--- NOTE | 2023-12-24 07:16 | XRay Report ---
XR chest 1V not portable CLINICAL HISTORY: illness COMPARISON STUDY: Chest radiograph and chest CT August 12, 2023. FINDINGS: Lung volumes are normal. There is no consolidation to suggest pneumonia. Left upper lobe no dule is again noted. There is no pneumothorax or pleural effusion. Cardiac size is normal. Mediastina l contours are normal. There is no evidence for pulmonary edema. IMPRESSION: 1. No acute cardiopulmonary findings. 2. Redemonstration of the left upper lobe nodule, better depicted on prior CT. ACT 112: Negative or not required by law. Electronically signed by: Nishant Kern M.D. 12/24/2023 7:14 AM
[2023-12-24] MEDS: HYDROmorphone INJ 0.5 MG/0.5 ML SYR IV PRN (07:23)
[2023-12-24] MEDS ORDERED: CYCLOBENZAPRINE HCL 10 MG TAB PO PRN (08:03)
[2023-12-24] MEDS: NYSTATIN POWDER 15GM BTL EXT SCH (08:08)
[2023-12-24] MEDS: FLUTICASONE FUROATE 200MCG 14 PUFFS/INHALER INH SCH (08:09)
[2023-12-24] MEDS: buPROPion XL 300 MG TABCR PO SCH (08:09)
[2023-12-24] MEDS: POTASSIUM CHLORIDE PWD 20 MEQ PACK PO SCH (08:09)
[2023-12-24] MEDS: GABAPENTIN 300 MG CAP PO SCH (08:10)
[2023-12-24] MEDS: UMECLIDINIUM/VILANTEROL 62.5/25MCG 7 PUFFS/INHALER INH SCH (08:10)
[2023-12-24] MEDS: PROPRANOLOL HCL 20 MG TAB PO SCH (08:10)
--- NOTE | 2023-12-24 08:54 | Cardiology Consultation ---
Date of Consultation December 24, 2023 Assessment & Plan (1) Acute GI bleeding: (2) Elevated troponin I level: (3) Hypokalemia: (4) Hypomagnesemia: (5) Acute hyponatremia: Plan Assessment: 68 year old female presents with persistent Nausea, vomiting, confusion, black stool (in ileostomy), and marked electrolyte imbalance. Cardiology requested due to patient's history and troponin elevation. Plan: 1. Acute GI Bleed: -Patient currently NPO waiting to be seen by GI for further recommendations. -H/H stable, but to be closely monitored. -Etiology unclear; will await further input by GI and primary team. 2. Elevated Troponin -In the absence of chest pain, angina and no acute EKG changes. -Likely demand ischemia s/t to GI bleed -Review of telemetry shows no ectopy or acute events. -Will obtain echocardiogram to assess overall structure, function and assess for any wall motion abnormality. -Continue Propranolol, and Atorvastatin. ASA 81m on hold s/t GI bleed. 3. Hypokalemia 4. Hypomagnesemia 5. Hyponatremia -In the setting of 3 days history of intractable N/V and black stools. -Continue with Gentle IV fluid resuscitation with NSS, Potassium supplementation, and IV magnesium supplementation as ordered by primary team. -Close monitoring of electrolytes with ongoing supplementation as needed. Case has been discussed with Dr. Sauer. Further recommendations regarding plan of care as per his assessment. I spent a total of 40 minutes on the date of service in preparation, delivery, documentation of the care provided to the patient excluding any time spent in the performance of separately billed services. CEE [facility] Cardiology [facility] Supervising Physician Co-Signing Physician Notes Patient was seen and personally examined. Full evaluation and assessment as outlined above. Care and management discussed personally with advanced provider and endorsed 68-year-old female admitted with severe nausea vomiting possible acute GI bleed Mild elevation of troponin likely secondary to demand ischemia, increased heart rate Echocardiogram with preserved wall motion and LV systolic function. Mild right ventricular enlargement and elevation pulmonary pressures Baseline beta-leobardo with propranolol resumed Currently hemodynamically stable and improving Urged tobacco cessation now initiated in [facility] Will follow History of Present Illness Reason for Consultation: Troponin elevation [facility] Attending Physician: Trinity Conti MD History of Present Illness HPI: patient is a 68 year old female with PMHx significant for HTN, HLD, HFpEF, aortic valve sclerosis, Carotid artery disease, anemia, Chronic respiratory failure, COPD, Chronic tobacco use, and history of lung cancer s/p radiation 01/2023, 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 Also noted black stools in her ileostomy. She states that she does not recall much about the event by the time she came to the hospital because she was "so out of it". She denies any chest pain, pressure, palpitations or shortness of breath related to the entire event. She is resting comfortably in bed today without complaint. Review of telemetry demonstrates SR, rates 90-100 with no acute events overnight. WBC elevated 18.28 and trending down, HgB 11.0 this AM. Serum sodium on admission 131, Serum K 2.9, Cr 2.8, Mag 1.3 High sensitivity troponin 111.8/101.[address], prior cited inferior posterior infarct Rate 116bpm. Chest xray negative for acute process CT ABD/Pelvis: IMPRESSION: Limited exam. An ostomy site is noted in the right lower quadrant.. There is distended loops of air-filled small bowel. This may represent an ileus. There is evidence for old granulomatous disease. 1.2 cm lucency in the right lobe of the liver may represent a cyst. For echocardiogram this morning. Patient follows with Rosa Elena Ko PA-C in cardiology office. last visit august 2023. Allergies Allergy/AdvReac Type Severity Reaction Status Date / Time adhesive Allergy Intermediate SWELLING/RA Verified 12/24/23 01:19 Home Medications Medication Instructions Recorded Confirmed Type aspirin 81 mg tablet,delayed 81 mg PO QAM 02/26/19 12/24/23 History release atorvastatin 20 mg tablet 20 mg PO HS 02/26/19 12/24/23 History fluticasone propionate 50 2 spray intranasal QAM PRN Allergy 02/26/19 12/24/23 History mcg/actuation nasal Symptoms spray,suspension metformin 1,000 mg tablet 1,000 mg PO BIDM 02/26/19 12/24/23 History pantoprazole 40 mg tablet,delayed 40 mg PO QAM 02/26/19 12/24/23 History release (Protonix) trazodone 50 mg tablet 50 mg PO HS 02/26/19 12/24/23 History albuterol sulfate 90 mcg/actuation 2 puff inhalation Q4H PRN 03/31/19 12/24/23 History aerosol inhaler Shortness Of Breath Or Wheezing hydromorphone 4 mg tablet 4 mg PO Q4H PRN pain 07/27/19 12/24/23 History (Dilaudid) cyclobenzaprine 10 mg tablet 10 mg PO TID Muscle Spasm 11/17/19 12/24/23 History ondansetron HCl 8 mg tablet 8 mg PO Q8H PRN Nausea 05/29/20 12/24/23 History prochlorperazine maleate 10 mg 10 mg PO Q6H PRN Constipation 05/29/20 12/24/23 History tablet (Compazine) fluticasone fur. 200 mcg-umeclid 1 inh inhalation DAILY 03/02/22 12/24/23 History 62.5 mcg-vilant 25 mcg inhalat.powder (Trelegy Ellipta) propranolol 20 mg tablet 20 mg PO AMHS 03/02/22 12/24/23 History furosemide 40 mg tablet 40 mg PO DAILY PRN Edema 03/26/22 12/24/23 History morphine 15 mg tablet,extended 15 mg PO QAM 08/12/23 12/24/23 History release alendronate 70 mg tablet 70 mg PO WK 12/24/23 12/24/23 History bupropion HCl 300 mg 24 hr tablet, 300 mg PO QAM 12/24/23 12/24/23 History extended release gabapentin 300 mg capsule 300 mg PO TID 12/24/23 12/24/23 History nystatin 100,000 unit/gram topical 1 applic topical TID 12/24/23 12/24/23 History powder (Klayesta) ropinirole 6 mg tablet,extended 6 mg PO HS 12/24/23 12/24/23 History release 24 hr Patient History Medical History Insomnia GERD (gastroesophageal reflux disease) DJD (degenerative joint disease) Diabetic neuropathy Bilateral hands and feet Squamous cell carcinoma of anal canal Diagnosed 05/05/2019. Invasive, moderately differientiated, P-16 positive, Positive margin. s/p ileostomy, completed mitomycin x1 dose on 06/14/2019 and Xeloda along with radiation treatment between 06/09/2019-07/28/2019 Breast infection in female Hx of chronic left breast infections for 20 years Heart murmur Hyperlipemia Degenerative disc disease Constipation Bleeding hemorrhoids History of hemorrhoids Low back pain with right-sided sciatica multiple pain management injections with Dr. Archer Hip pain, chronic right Bursitis, scapulohumeral Surgical History S/P trigger finger release Status post trigger finger release History of shoulder surgery right 2009, ;left-2012. History of hernia repair History of breast surgery nipple areola reconstruction, s/p multiple infections History of neck surgery excision of lipoma-08/23/17 History of cholecystectomy 08/17/16 History of arthroscopy of right knee History of arthroplasty of left knee History of rectal abscess with I &D 05/05/19 History of colonoscopy 2010, 2016 History of breast biopsy 1994, 2001 History of hysterectomy age 37 History of hemorrhoidectomy 02/17/19 Family History Grandmother (Maternal) , in 60's Lung cancer Brother No problems noted. Sister No problems noted. Daughter No problems noted. Son No problems noted. 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: No Beliefs That Will Affect Care: None marital status: Current Living Situation: Spouse Current Living Situation Comment: boyfriend current occupational status: disabled 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 Feels Safe at Home: Yes Safety Concerns: Feels Safe At This Time Childhood Exposure to Second-Hand Smoke: Yes caffeine: Yes (mountain dew daily 2 liters a day) Dental Care, Regularly: No Assistive Devices: Glasses Review of Systems Review of Systems: All systems reviewed & are unremarkable except as noted in HPI & below Physical Exam Constitutional: + frail appearing; no acute distress and not ill appearing Neck: normal visual inspection and trachea midline Respiratory: normal respiratory effort; no respiratory distress, no labored breathing and no cough Auscultation: lungs clear to auscultation bilaterally; no crackles, no rales, no rhonchi and no wheezes Cardiovascular: Heart Sounds: normal S1, normal S2 and + murmur (+I/ systolic murmur) Vessels: dorsalis pedis pulses present; no JVD Extremities: no edema Gastrointestinal (Abdomen): ileostomy bag with noted black liquid stool Skin: no rashes, warm and dry Psychiatric: A+Ox3, euthymic affect Results & Data Vital Signs (Past 12 Hours) Vital Signs Temp Pulse Pulse Resp BP BP Pulse Ox 12/24/23 08:15 36.6 C 101 H 20 114/72 95 12/24/23 05:40 106 H 12/24/23 05:09 12/24/23 05:09 36.8 C 98 H 18 118/76 96 12/24/23 02:09 110 H 16 122/69 99 12/24/23 01:49 109 H 12/24/23 01:09 110 H 20 101/80 98 12/24/23 00:21 115 H 17 122/66 99 12/24/23 00:09 114 H 19 134/84 98 12/23/23 23:09 110 H 19 125/75 97 12/23/23 23:04 112 H 19 125/75 97 12/23/23 21:58 94 12/23/23 21:45 118 H 12/23/23 21:42 119 H 25 H 115/80 94 12/23/23 21:07 36.9 C 119 H 19 110/87 93 O2 Del Method 12/24/23 08:15 Room Air 12/24/23 05:40 12/24/23 05:09 Room Air 12/24/23 05:09 Room Air 12/24/23 02:09 Room Air 12/24/23 01:49 12/24/23 01:09 Room Air 12/24/23 00:21 Room Air 12/24/23 00:09 Room Air 12/23/23 23:09 Room Air 12/23/23 23:04 Room Air 12/23/23 21:58 Room Air 12/23/23 21:45 12/23/23 21:42 Room Air 12/23/23 21:07 Room Air Laboratory Results Cardiac Enzymes 12/23/23 12/23/23 Range/Units 21:48 23:47 AST 13 (13-39) U/L Troponin I High Sens 111.8 H* 101.0 H* (0-14) pg/ml Coagulation 12/23/23 Range/Units 21:48 PT 11.5 (9.0-12.0) Seconds APTT 26 (21-31) Seconds CBC 12/23/23 12/24/23 Range/Units 21:48 10:48 WBC 18.28 H 10.66 (4.8-10.8) K/ul RBC 4.71 3.83 L (4.20-5.40) M/uL Hgb 13.5 11.0 L (12.0-16.0) g/dl Hct 38.9 32.6 L (37.0-47.0) % Plt Count 334 239 (130-400) K/uL Neut # (Auto) 16.33 H 9.26 H (1.40-6.50) K/uL Lymph # (Auto) 0.59 L 0.44 L (1.20-3.40) K/uL Mills # (Auto) 0.99 H 0.83 H (0.11-0.59) K/uL Eos # (Auto) 0.10 0.00 (0.00-0.50) K/uL Baso # (Auto) 0.03 0.01 (0.00-0.20) K/uL Comprehensive Metabolic Panel 12/23/23 Range/Units 21:48 Sodium 131 L (136-145) mmol/L Potassium 2.9 L (3.5-5.1) mmol/L Chloride 87 L (98-107) mmol/L Carbon Dioxide 25 (21-32) mmol/L BUN 79 H (6-23) mg/dl Creatinine 2.64 H (0.6-1.2) mg/dl Glucose 196 H (70-99(Fasting)) mg/dl Calcium 9.0 (8.6-10.3) mg/dl AST 13 (13-39) U/L ALT 9 (7-52) U/L Alkaline Phosphatase 50 (34-104) U/L Total Protein 7.1 (6.0-8.3) gm/dl Albumin 4.5 (3.4-5.0) gm/dl Intake and Output 12/23/23 12/24/23 12/24/23 22:59 06:59 14:59 Intake Total 1746.667 / 1746.667 100 / 100 Balance 1746.667 / 1746.667 100 / 100 Intake: IV 1746.667 / 1746.667 100 / 100 Magnesium Sulfate / D5w 1 gm In 276.667 / 276.667 100 ml @ 50 mls/hr IV ONE ONE Rx#:[id number] PANTOprazole 40 mg In Dextrose 100 / 100 5% Mini-B 100 ml @ 8 MG/HR 20 mls/hr IV Q5H [facility] Rx#:[id number] PANTOprazole 80 mg In Dextrose 120 / 120 5% 100 ml @ 480 mls/hr IV ONE STA Rx#:[id number] Potassium Chloride / Wtr 10 meq 300 / 300 In 100 ml @ 100 mls/hr IV Q1H [facility] Rx#:[id number] Sodium Chloride 0.9% 1,000 ml @ 1000 / 1000 999 mls/hr IV .Q1H1M ONE Rx#: [id number] cefTRIAXone SODIUM 2,000 mg In 50 / 50 50 ml @ 100 mls/hr IV Q24H [facility] Rx#:[id number] Oral 0 / 0 Other: # Unmeasured Voids 1 Weight 68.3 kg 67.16 kg Weight Measurement Method Built in [facility] Standing Scale
[2023-12-24] MEDS ORDERED: PANTOprazole 40 MG TAB PO SCH (09:00)
[2023-12-24] MEDS ORDERED: CYCLOBENZAPRINE HCL 10 MG TAB PO SCH (09:00)
--- NOTE | 2023-12-24 09:52 | Gastrointestinal Consultation ---
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 HGB is above baseline around 13.5 this AM. Given ileus on imaging, conservative measures. If there is episode of acute upper GI bleeding, would consider EGD evaluation at that time. Trend H&H. Monitor and document GI output. Transfuse PRN. KUB this AM. Pending KUB results, consider a trial of clear liquids. IV PPI BID for 48 hours then PO PPI BID. She should have an outpatient EGD/Colonoscopy with her established [facility] GI care team. Please help arrange this follow up for Emiliana. Thank you for allowing us to participate in the care of this patient. Please call with any acute changes, questions or concerns. Please see addendum below with additional recommendation from my supervising physician. I spent a total of 60 minutes on the date of service in review of patient's record, and previously obtained information in person and appropriate medical visit, discussion and education of plan, with patient and/or caregiver, placing orders for tests/referral/procedures as medically necessary and documentation of pertinent clinical information in patient's medical records for their visit today. Supervising Physician Co-Signing Physician Notes Patient seen and examined. Case discussed with Siria MIKE. Patient is hemodynamically stable and when I evaluated her early this morning was still somewhat confused. Agree with treating acute MS changes, supportive care and OP GI evaluation with her private GIs. IP GI Service will sign off. History of Present Illness Reason for Consultation: GI bleed Requesting Physician: Trinity Conti MD Attending Physician: Trinity Conti MD History of Present Illness 68 year old female with history of T2DM, hyperlipidemia, oxygen dependent COPD, chronic heart failure with preserved ejection fraction, HTN, atherosclerosis of both carotid arteries, GERD, fibromyalgia, restless leg syndrome, osteoporosis, essential tremor, migraine, cerebral atrophy, iron deficiency anemia, tobacco use disorder, history of lung cancer s/p radiation treatment 01/2023, history of squamous cell cancer of anal canal s/p chemoradiation and diverting ileostomy 2020 admitted through the ED for evaluation of confusion, nausea/vomiting - GI was asked to evaluate for GI bleeding. She notes over the last 2-3 days she has had nausea/vomiting. Emesis has been food, bilious and darker brown. Notes a change in her ostomy output around the same time - dark brown output. No blood in ostomy. She notes she started to occasionally pass mucous and stool debris from her rectum. 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 KUB 2023: pending CTAP 2023: An ostomy site is noted in the right lower quadrant.. There is distended loops of air-filled small bowel. This may represent an ileus. There is evidence for old granulomatous disease. 1.2 cm lucency in the right lobe of the liver may represent a cyst. Colonoscopy 2020: Colonic fistula. - Diverticulosis in the sigmoid colon. - No specimens collected. - Otherwise normal to the terminal ileum, with retroflexed views of the ascending colon and rectum. Colonoscopy 2016: Tortuous colon. - No specimens collected. - Otherwise normal to the terminal ileum, with retroflexed views of the ascending colon and rectum. Colonoscopy 2010: The entire examined colon to the terminal ileum is normal. Allergies Allergy/AdvReac Type Severity Reaction Status Date / Time adhesive Allergy Intermediate SWELLING/RA Verified 12/24/23 01:19 Home Medications Medication Instructions Recorded Confirmed Type aspirin 81 mg tablet,delayed 81 mg PO QAM 02/26/19 12/24/23 History release atorvastatin 20 mg tablet 20 mg PO HS 02/26/19 12/24/23 History fluticasone propionate 50 2 spray intranasal QAM PRN Allergy 02/26/19 12/24/23 History mcg/actuation nasal Symptoms spray,suspension metformin 1,000 mg tablet 1,000 mg PO BIDM 02/26/19 12/24/23 History pantoprazole 40 mg tablet,delayed 40 mg PO QAM 02/26/19 12/24/23 History release (Protonix) trazodone 50 mg tablet 50 mg PO HS 02/26/19 12/24/23 History albuterol sulfate 90 mcg/actuation 2 puff inhalation Q4H PRN 03/31/19 12/24/23 History aerosol inhaler Shortness Of Breath Or Wheezing hydromorphone 4 mg tablet 4 mg PO Q4H PRN pain 07/27/19 12/24/23 History (Dilaudid) cyclobenzaprine 10 mg tablet 10 mg PO TID Muscle Spasm 11/17/19 12/24/23 History ondansetron HCl 8 mg tablet 8 mg PO Q8H PRN Nausea 05/29/20 12/24/23 History prochlorperazine maleate 10 mg 10 mg PO Q6H PRN Constipation 05/29/20 12/24/23 History tablet (Compazine) fluticasone fur. 200 mcg-umeclid 1 inh inhalation DAILY 03/02/22 12/24/23 History 62.5 mcg-vilant 25 mcg inhalat.powder (Trelegy Ellipta) propranolol 20 mg tablet 20 mg PO AMHS 03/02/22 12/24/23 History furosemide 40 mg tablet 40 mg PO DAILY PRN Edema 03/26/22 12/24/23 History morphine 15 mg tablet,extended 15 mg PO QAM 08/12/23 12/24/23 History release alendronate 70 mg tablet 70 mg PO WK 12/24/23 12/24/23 History bupropion HCl 300 mg 24 hr tablet, 300 mg PO QAM 12/24/23 12/24/23 History extended release gabapentin 300 mg capsule 300 mg PO TID 12/24/23 12/24/23 History nystatin 100,000 unit/gram topical 1 applic topical TID 12/24/23 12/24/23 History powder (Klayesta) ropinirole 6 mg tablet,extended 6 mg PO HS 12/24/23 12/24/23 History release 24 hr Patient History Medical History Insomnia GERD (gastroesophageal reflux disease) DJD (degenerative joint disease) Diabetic neuropathy Bilateral hands and feet Squamous cell carcinoma of anal canal Diagnosed 05/05/2019. Invasive, moderately differientiated, P-16 positive, Positive margin. s/p ileostomy, completed mitomycin x1 dose on 06/14/2019 and Xeloda along with radiation treatment between 06/09/2019-07/28/2019 Breast infection in female Hx of chronic left breast infections for 20 years Heart murmur Hyperlipemia Degenerative disc disease Constipation Bleeding hemorrhoids History of hemorrhoids Low back pain with right-sided sciatica multiple pain management injections with Dr. Archer Hip pain, chronic right Bursitis, scapulohumeral Surgical History S/P trigger finger release Status post trigger finger release History of shoulder surgery right 2009, ;left-2012. History of hernia repair History of breast surgery nipple areola reconstruction, s/p multiple infections History of neck surgery excision of lipoma-08/23/17 History of cholecystectomy 08/17/16 History of arthroscopy of right knee History of arthroplasty of left knee History of rectal abscess with I &D 05/05/19 History of colonoscopy 2010, 2016 History of breast biopsy 1994, 2001 History of hysterectomy age 37 History of hemorrhoidectomy 02/17/19 Family History Grandmother (Maternal) , in 60's Lung cancer Brother No problems noted. Sister No problems noted. Daughter No problems noted. Son No problems noted. Other No pertinent family history in first degree relatives Social History Smoking Status: Current every day smoker Tobacco Type: Cigarettes packs per day: 1; Cigarettes Per Day: 12; Second Hand Exposure: No; Do You Dip or Chew Tobacco: No; Hx Alcohol Use: No Hx Substance Use: No Preferred Language: Lithuanian Communication Ability: Effective Visual Impairment: Limited Hearing Ability: Hard of Hearing Rail Switch Operator Required: No Beliefs That Will Affect Care: None marital status: Current Living Situation: Spouse Current Living Situation Comment: boyfriend current occupational status: disabled 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 Physical Exam Constitutional: WD/WN, vitals as above Respiratory: normal respiratory effort, lungs clear to auscultation Cardiovascular: RRR, no murmur, no edema Gastrointestinal (Abdomen): normal bowel sounds, soft, nontender, no hepatosplenomegaly Skin: no rashes, warm and dry Results & Data Vital Signs (Past 12 Hours) Vital Signs Temp Pulse Pulse Resp BP BP Pulse Ox 12/24/23 08:15 36.6 C 101 H 20 114/72 95 12/24/23 05:40 106 H 12/24/23 05:09 12/24/23 05:09 36.8 C 98 H 18 118/76 96 12/24/23 02:09 110 H 16 122/69 99 12/24/23 01:49 109 H 12/24/23 01:09 110 H 20 101/80 98 12/24/23 00:21 115 H 17 122/66 99 12/24/23 00:09 114 H 19 134/84 98 12/23/23 23:09 110 H 19 125/75 97 12/23/23 23:04 112 H 19 125/75 97 12/23/23 21:58 94 O2 Del Method 12/24/23 08:15 Room Air 12/24/23 05:40 12/24/23 05:09 Room Air 12/24/23 05:09 Room Air 12/24/23 02:09 Room Air 12/24/23 01:49 12/24/23 01:09 Room Air 12/24/23 00:21 Room Air 12/24/23 00:09 Room Air 12/23/23 23:09 Room Air 12/23/23 23:04 Room Air 12/23/23 21:58 Room Air Laboratory Results 12/24/23 12/24/23 12/24/23 Range/Units Unknown 07:32 06:25 WBC (4.8-10.8) K/ul RBC (4.20-5.40) M/uL Hgb (12.0-16.0) g/dl POC Hgb (12.0-16.0) g/dl Hct (37.0-47.0) % POC Hct (37-47) % MCV (80.0-100.0) fL MCH (25.0-34.0) pg MCHC (32.0-36.0) g/dL RDW Std Deviation (36.4-46.3) fL RDW Coeff of Chelle (11.5-14.5) % Plt Count (130-400) K/uL MPV (9.4-12.4) fL Immature Gran % (Auto) % Neut % (Auto) % Lymph % (Auto) % [place] % (Auto) % Eos % (Auto) % Baso % (Auto) % Neut # (Auto) (1.40-6.50) K/uL Lymph # (Auto) (1.20-3.40) K/uL [place] # (Auto) (0.11-0.59) K/uL Eos # (Auto) (0.00-0.50) K/uL Baso # (Auto) (0.00-0.20) K/uL Immature Gran # (Auto) (0.01-0.20) K/uL Absolute Nucleated RBC (0.00-0.12) K/uL Nucleated RBC % (auto) % PT (9.0-12.0) Seconds INR (0.9-1.1) APTT (21-31) Seconds PTT Ratio POC Sodium (135-144) mmol/L Sodium (136-145) mmol/L POC Potassium (3.3-5.0) mmol/L Potassium (3.5-5.1) mmol/L POC Chloride (101-112) mmol/L Chloride (98-107) mmol/L Carbon Dioxide (21-32) mmol/L POC Total CO2 (24-31) mmol/L Anion Gap (3-11) POC Anion Gap (16-25) mmol/L POC BUN (7-18) mg/dl BUN (6-23) mg/dl Creatinine (0.6-1.2) mg/dl POC Creatinine (0.6-1.3) mg/dl Est Cr Clr Drug Dosing ml/min Est GFR ( Amer) ml/min Est GFR (Non-Af Amer) ml/min BUN/Creatinine Ratio (10-20) Glucose (70-99(Fasting)) mg/dl POC Glucose 137 H 146 H (70-99) mg/dl POC Glucose (other) (70-99) mg/dl Osmolality (280-300) mOsm/kg Calcium (8.6-10.3) mg/dl POC Ioniz Calcium Uday (1.12-1.32) mmol/l Magnesium (1.7-2.4) mg/dl Total Bilirubin (0.2-1.0) mg/dl AST (13-39) U/L ALT (7-52) U/L Alkaline Phosphatase (34-104) U/L Troponin I High Sens (0-14) pg/ml Total Protein (6.0-8.3) gm/dl Albumin (3.4-5.0) gm/dl Globulin (2.5-4.0) gm/dl Albumin/Globulin Ratio (0.9-2) Urine Color Yellow Urine Appearance Clear (Clear) Urine pH 5.5 (4.5-7.5) Ur Specific [place] 1.015 (1.000-1.030) Urine Protein 1+ H (Negative) Urine Glucose (UA) Negative (Negative) Urine Ketones Trace H (Negative) Urine Blood 1+ H (Negative) Urine Nitrite Negative (Negative) Urine Bilirubin Negative (Negative) Urine Urobilinogen Negative (Negative) Ur Leukocyte Esterase Negative (Negative) Urine WBC (Auto) 0-5 (0-5) /hpf Urine RBC (Auto) 0-2 (0-2) /hpf U Hyaline Cast (Auto) 11-20 H (0-2) /lpf U Epithel Cells (Auto) 0-2 (0-2) /hpf Urine Bacteria (Auto) None Seen (None Seen) Hyaline Casts Present A (None Presnt) /lpf Urine Osmolality 458 L (500-800) mOsm/kg SARS-CoV-2 (PCR) (Negative) Influenza Type A (PCR) (Neg) Influenza Type B (PCR) (Neg) RSV (RT-PCR) (Neg) Blood Type Antibody Screen 12/24/23 12/23/23 12/23/23 Range/Units 05:17 23:47 22:18 WBC (4.8-10.8) K/ul RBC (4.20-5.40) M/uL Hgb (12.0-16.0) g/dl POC Hgb 13.9 (12.0-16.0) g/dl Hct (37.0-47.0) % POC Hct 41 (37-47) % MCV (80.0-100.0) fL MCH (25.0-34.0) pg MCHC (32.0-36.0) g/dL RDW Std Deviation (36.4-46.3) fL RDW Coeff of Chelle (11.5-14.5) % Plt Count (130-400) K/uL MPV (9.4-12.4) fL Immature Gran % (Auto) % Neut % (Auto) % Lymph % (Auto) % [place] % (Auto) % Eos % (Auto) % Baso % (Auto) % Neut # (Auto) (1.40-6.50) K/uL Lymph # (Auto) (1.20-3.40) K/uL [place] # (Auto) (0.11-0.59) K/uL Eos # (Auto) (0.00-0.50) K/uL Baso # (Auto) (0.00-0.20) K/uL Immature Gran # (Auto) (0.01-0.20) K/uL Absolute Nucleated RBC (0.00-0.12) K/uL Nucleated RBC % (auto) % PT (9.0-12.0) Seconds INR (0.9-1.1) APTT (21-31) Seconds PTT Ratio POC Sodium 129 L (135-144) mmol/L Sodium (136-145) mmol/L POC Potassium 2.8 L (3.3-5.0) mmol/L Potassium (3.5-5.1) mmol/L POC Chloride 89 L (101-112) mmol/L Chloride (98-107) mmol/L Carbon Dioxide (21-32) mmol/L POC Total CO2 26 (24-31) mmol/L Anion Gap (3-11) POC Anion Gap 18.0 (16-25) mmol/L POC BUN 71 H (7-18) mg/dl BUN (6-23) mg/dl Creatinine (0.6-1.2) mg/dl POC Creatinine 2.8 H (0.6-1.3) mg/dl Est Cr Clr Drug Dosing ml/min Est GFR ( Amer) ml/min Est GFR (Non-Af Amer) ml/min BUN/Creatinine Ratio (10-20) Glucose (70-99(Fasting)) mg/dl POC Glucose 160 H (70-99) mg/dl POC Glucose (other) 189 H (70-99) mg/dl Osmolality (280-300) mOsm/kg Calcium (8.6-10.3) mg/dl POC Ioniz Calcium Uday 1.02 L (1.12-1.32) mmol/l Magnesium (1.7-2.4) mg/dl Total Bilirubin (0.2-1.0) mg/dl AST (13-39) U/L ALT (7-52) U/L Alkaline Phosphatase (34-104) U/L Troponin I High Sens 101.0 H* (0-14) pg/ml Total Protein (6.0-8.3) gm/dl Albumin (3.4-5.0) gm/dl Globulin (2.5-4.0) gm/dl Albumin/Globulin Ratio (0.9-2) Urine Color Urine Appearance (Clear) Urine pH (4.5-7.5) Ur Specific [place] (1.000-1.030) Urine Protein (Negative) Urine Glucose (UA) (Negative) Urine Ketones (Negative) Urine Blood (Negative) Urine Nitrite (Negative) Urine Bilirubin (Negative) Urine Urobilinogen (Negative) Ur Leukocyte Esterase (Negative) Urine WBC (Auto) (0-5) /hpf Urine RBC (Auto) (0-2) /hpf U Hyaline Cast (Auto) (0-2) /lpf U Epithel Cells (Auto) (0-2) /hpf Urine Bacteria (Auto) (None Seen) Hyaline Casts (None Presnt) /lpf Urine Osmolality (500-800) mOsm/kg SARS-CoV-2 (PCR) (Negative) Influenza Type A (PCR) (Neg) Influenza Type B (PCR) (Neg) RSV (RT-PCR) (Neg) Blood Type O Positive Antibody Screen NEGATIVE 12/23/23 12/23/23 Range/Units 21:48 21:45 WBC 18.28 H (4.8-10.8) K/ul RBC 4.71 (4.20-5.40) M/uL Hgb 13.5 (12.0-16.0) g/dl POC Hgb (12.0-16.0) g/dl Hct 38.9 (37.0-47.0) % POC Hct (37-47) % MCV 82.6 (80.0-100.0) fL MCH 28.7 (25.0-34.0) pg MCHC 34.7 (32.0-36.0) g/dL RDW Std Deviation 44.6 (36.4-46.3) fL RDW Coeff of Chelle 14.7 H (11.5-14.5) % Plt Count 334 (130-400) K/uL MPV 9.1 L (9.4-12.4) fL Immature Gran % (Auto) 1.3 % Neut % (Auto) 89.4 % Lymph % (Auto) 3.2 % [place] % (Auto) 5.4 % Eos % (Auto) 0.5 % Baso % (Auto) 0.2 % Neut # (Auto) 16.33 H (1.40-6.50) K/uL Lymph # (Auto) 0.59 L (1.20-3.40) K/uL [place] # (Auto) 0.99 H (0.11-0.59) K/uL Eos # (Auto) 0.10 (0.00-0.50) K/uL Baso # (Auto) 0.03 (0.00-0.20) K/uL Immature Gran # (Auto) 0.24 H (0.01-0.20) K/uL Absolute Nucleated RBC 0.02 (0.00-0.12) K/uL Nucleated RBC % (auto) 0.1 % PT 11.5 (9.0-12.0) Seconds INR 1.1 (0.9-1.1) APTT 26 (21-31) Seconds PTT Ratio 1.0 POC Sodium (135-144) mmol/L Sodium 131 L (136-145) mmol/L POC Potassium (3.3-5.0) mmol/L Potassium 2.9 L (3.5-5.1) mmol/L POC Chloride (101-112) mmol/L Chloride 87 L (98-107) mmol/L Carbon Dioxide 25 (21-32) mmol/L POC Total CO2 (24-31) mmol/L Anion Gap 19 H (3-11) POC Anion Gap (16-25) mmol/L POC BUN (7-18) mg/dl BUN 79 H (6-23) mg/dl Creatinine 2.64 H (0.6-1.2) mg/dl POC Creatinine (0.6-1.3) mg/dl Est Cr Clr Drug Dosing 18.9 ml/min Est GFR ( Amer) 20.7 ml/min Est GFR (Non-Af Amer) 17.9 ml/min BUN/Creatinine Ratio 29.9 H (10-20) Glucose 196 H (70-99(Fasting)) mg/dl POC Glucose (70-99) mg/dl POC Glucose (other) (70-99) mg/dl Osmolality 299 (280-300) mOsm/kg Calcium 9.0 (8.6-10.3) mg/dl POC Ioniz Calcium Uday (1.12-1.32) mmol/l Magnesium 1.3 L (1.7-2.4) mg/dl Total Bilirubin 1.0 (0.2-1.0) mg/dl AST 13 (13-39) U/L ALT 9 (7-52) U/L Alkaline Phosphatase 50 (34-104) U/L Troponin I High Sens 111.8 H* (0-14) pg/ml Total Protein 7.1 (6.0-8.3) gm/dl Albumin 4.5 (3.4-5.0) gm/dl Globulin 2.6 (2.5-4.0) gm/dl Albumin/Globulin Ratio 1.7 (0.9-2) Urine Color Urine Appearance (Clear) Urine pH (4.5-7.5) Ur Specific [place] (1.000-1.030) Urine Protein (Negative) Urine Glucose (UA) (Negative) Urine Ketones (Negative) Urine Blood (Negative) Urine Nitrite (Negative) Urine Bilirubin (Negative) Urine Urobilinogen (Negative) Ur Leukocyte Esterase (Negative) Urine WBC (Auto) (0-5) /hpf Urine RBC (Auto) (0-2) /hpf U Hyaline Cast (Auto) (0-2) /lpf U Epithel Cells (Auto) (0-2) /hpf Urine Bacteria (Auto) (None Seen) Hyaline Casts (None Presnt) /lpf Urine Osmolality (500-800) mOsm/kg SARS-CoV-2 (PCR) NEGATIVE (Negative) Influenza Type A (PCR) Negative (Neg) Influenza Type B (PCR) Negative (Neg) RSV (RT-PCR) Negative (Neg) Blood Type Antibody Screen PG Care Time/CCT Total # of Minutes Spent Total Time Spent with Patient: Total time spent is greater than 50% in coordination of care (as documented) at patient's floor/unit and/or counseling patient: Coding Level of Care Code 18887 INT INP/OBS CARE 2/55MIN Diagnoses GI bleed K92.2
--- NOTE | 2023-12-24 10:42 | Communication Note ---
Date of Service: December 24, 2023 Patient seen and examined Reports nausea, vomiting and black stools for the past few days. Reports some abd pain Exam notable for dark black stool in ostomy bag Hb was 13.5 on admission last night. Rechecking this AM Monitor H/H Continue IV PPI GI will follow Transfuse prn to keep Hb>7 or for hemodynamic instability Continue IVF Keep NPO for now Trop was elevated at 118 Likely demand ischemia Will follow up Cards JIE ramos Counseled patient regarding smoking cessation. Currently smokes 10cig per day. Reports she has been cutting down since her cancer diagnosis 5 years ago when she was smoking up to 2 packs per day. She wants to try nicotine patch. Other plans as detailed in H/P this AM
[2023-12-24 11:05] LABS: Basophils # (auto) 0.01 K/uL (0.00-0.20); Basophils % (auto) 0.1 %; Hematocrit (blood only) 32.6 % (37.0-47.0); Immature Granulocytes # (auto) 0.12 K/uL (0.01-0.20); Immature Granulocytes % (auto) 1.1 %; Lymphocytes # (auto) 0.44 K/uL (1.20-3.40); Lymphocytes % (auto) 4.1 %; Mean Corpuscular Hemoglobin 28.7 pg (25.0-34.0); Mean Corpuscular Hgb Conc 33.7 g/dL (32.0-36.0); Mean Corpuscular Volume 85.1 fL (80.0-100.0); Mean Platelet Volume 8.9 fL (9.4-12.4); Monocytes # (auto) 0.83 K/uL (0.11-0.59); Monocytes % (auto) 7.8 %; Neutrophils # (auto) 9.26 K/uL (1.40-6.50); Neutrophils % (auto) 86.9 %; Platelet Count 239 K/uL (130-400); RDW Coefficient of Variation 14.8 % (11.5-14.5); RDW Standard Deviation 45.5 fL (36.4-46.3); Red Blood Count 3.83 M/uL (4.20-5.40); White Blood Count 10.66 K/ul (4.8-10.8)
--- NOTE | 2023-12-24 11:06 | XRay Report ---
XR KUB/Abdomen 1 view CLINICAL HISTORY: ileus TECHNIQUE: 1 view of the abdomen was obtained. Comparison: None available at the time of this dictation. FINDINGS: Lung bases are unremarkable. Degenerative changes are seen in the visualized skeleton. Multiple loops of small bowel are borderline prominent measuring up to 30 mm. Small stool burden is seen. IMPRESSION: Prominence of the small bowel loops which may be normal or represent mild ileus. ACT 112: Negative or not required by law. Electronically signed by: Flip Malone M.D. 12/24/2023 11:05 AM
[2023-12-24 11:47] LABS: BUN Creatinine Ratio 31.1 (10-20); Calcium 8.4 mg/dl (8.6-10.3); Creatinine Clr Calc Pharmacy 29.7 ml/min; Est GFR (African American) 36.1 ml/min; Est GFR (Non-African American) 31.1 ml/min; Magnesium 2.3 mg/dl (1.7-2.4); Phosphorus 2.6 mg/dl (2.5-4.9); Potassium 3.1 mmol/L (3.5-5.1); Troponin I High Sensitivity 65.7 pg/ml (0-14)
[2023-12-24 11:49] LABS: Allen Test Pos (Pos); Base Excess ABG 1.7 mEq/L (-9-1.8); HCO3 ABG 26 mmol/L (19-24); Oxygen Saturation ABG 97.1 % (90-95); PCO2 ABG 37 mmHg (35-46); PO2 ABG 75 mmHg (80-95); pH ABG 7.45 (7.35-7.45)
[2023-12-24 12:09] LABS: Estimated Average Glucose 143 mg/dl; Hemoglobin A1C 6.6 % (4.5-5.6)
[2023-12-24] MEDS: NICOTINE 14 MG/24 HR PATCH TD SCH (12:29)
--- NOTE | 2023-12-24 13:50 | Electrocardiogram Report ---
Test Reason : Blood Pressure : */* mmHG Vent. Rate : 120 BPM Atrial Rate : 120 BPM P-R Int : 148 ms QRS Dur : 76 ms QT Int : 334 ms P-R-T Axes : 70 51 -6 degrees QTcB Int : 472 ms Sinus tachycardia with Premature atrial complexes Possible Left atrial enlargement Possible Inferior infarct , age undetermined Abnormal ECG When compared with ECG of 12-Aug-2023 16:31, Premature atrial complexes are now Present Nonspecific T wave abnormality now evident in Anterior leads Confirmed by Marquise Eason ([id number]) on 12/24/2023 1:50:31 PM Referred By: REFERRED SELF Confirmed By: Marquise Eason
--- NOTE | 2023-12-24 13:51 | Electrocardiogram Report ---
Test Reason : Blood Pressure : */* mmHG Vent. Rate : 116 BPM Atrial Rate : 116 BPM P-R Int : 154 ms QRS Dur : 76 ms QT Int : 338 ms P-R-T Axes : 66 60 35 degrees QTcB Int : 469 ms Sinus tachycardia Inferior-posterior infarct (cited on or before 23-Dec-2023) Abnormal ECG When compared with ECG of 23-Dec-2023 21:39, (unconfirmed) Premature atrial complexes are no longer Present Confirmed by Marquise Eason ([id number]) on 12/24/2023 1:51:24 PM Referred By: REFERRED SELF Confirmed By: Marquise Eason
[2023-12-24 16:55] LABS: Hematocrit (blood only) 29.6 % (37.0-47.0); Hemoglobin 10.3 g/dl (12.0-16.0); Mean Corpuscular Hemoglobin 29.4 pg (25.0-34.0); Mean Corpuscular Hgb Conc 34.8 g/dL (32.0-36.0); Mean Corpuscular Volume 84.6 fL (80.0-100.0); Mean Platelet Volume 8.7 fL (9.4-12.4); Platelet Count 211 K/uL (130-400); RDW Standard Deviation 46.2 fL (36.4-46.3); White Blood Count 7.98 K/ul (4.8-10.8)
[2023-12-24] MEDS ORDERED: PANTOPRAZOLE BOLUS/DRIP IV STA (17:09)
[2023-12-24] MEDS: PANTOprazole 80 MG in DEXTROSE 5% 100 ML IV ONE (17:57)
[2023-12-24 20:10] LABS: Troponin I High Sensitivity 44.2 pg/ml (0-14)
[2023-12-24 20:24] LABS: Base Excess VBG 2.1 mEq/L; HCO3 VBG 29 mmol/L; Oxygen Saturation VBG < 60.0 %; PCO2 VBG 52 mmHg (38-50); PO2 VBG 22 mmHg; pH VBG 7.35 (7.36-7.41)
[2023-12-24 20:40] LABS: BUN Creatinine Ratio 28.3 (10-20); Calcium 8.3 mg/dl (8.6-10.3); Creatinine Clr Calc Pharmacy 35.9 ml/min; Est GFR (African American) 45.4 ml/min; Est GFR (Non-African American) 39.2 ml/min
[2023-12-24] MEDS: NALOXONE HCL 0.4 MG/1 ML VIAL/CARP ONE (20:44)
[2023-12-24] MEDS: NALOXONE HCL 0.4 MG/1 ML VIAL/CARP IV STA (20:44)
[2023-12-24] MEDS: traZODone HCL 50 MG TAB PO SCH (20:48)
[2023-12-24] MEDS: ROPINIROLE 6 MG PO SCH (20:48)
[2023-12-24] MEDS: ATORVASTATIN 20 MG TAB PO SCH (20:48)
[2023-12-24] MEDS ORDERED: PANTOprazole 40 MG in SYRINGE 0 ML IV SCH (21:00)
[2023-12-24] MEDS ORDERED: rOPINIRole HCL 2 MG TABLET PO SCH (21:00)
[2023-12-24 21:16] LABS: Adenovirus F 40/41 PCR Not Detected (NotDetected); Astrovirus PCR Not Detected (NotDetected); Campylobacter PCR Not Detected (NotDetected); Cryptosporidium PCR Not Detected (NotDetected); Cyclospora cayetanensis PCR Not Detected (NotDetected); Entamoeba histolytica PCR Not Detected (NotDetected); Enteroaggregative E.coli(EAEC) Not Detected (NotDetected); Enteropathogenic E.coli (EPEC) Not Detected (NotDetected); Enterotoxigenic E.coli (ETEC) Not Detected (NotDetected); Giardia lamblia PCR Not Detected (NotDetected); Norovirus GI/GII PCR Not Detected (NotDetected); Plesiomonas shigelloides PCR Not Detected (NotDetected); Rotavirus A PCR Not Detected (NotDetected); Salmonella PCR Not Detected (NotDetected); Sapovirus PCR Not Detected (NotDetected); Shiga-like Toxin E.coli (STEC) Not Detected (NotDetected); Shigella/Enteroinvasive E.coli Not Detected (NotDetected); Vibrio cholerae PCR Not Detected (NotDetected); Vibrio species PCR Not Detected (NotDetected); Yersinia enterocolitica PCR Not Detected (NotDetected)
--- NOTE | 2023-12-24 21:28 | CT Scan Report ---
Exam(s): CT HEAD Without Contrast EXAM: CT Head Without Intravenous Contrast CLINICAL HISTORY: Reason for exam: AMS. TECHNIQUE: Axial computed tomography images of the head/brain without intravenous contrast. CTDI is 62.75 mGy and DLP is 1724.76 mGy-cm. Automated exposure control was utilized for the study. A dose lowering technique was utilized adhering to the principles of ALARA. COMPARISON: No relevant prior studies available. FINDINGS: Brain: No hemorrhage. No apparent acute cortical infarct. No mass lesion or midline shift. Ventricles: No hydrocephalus. Bones/joints: No acute fracture. Soft tissues: Unremarkable. Sinuses: No acute sinusitis. Mastoid air cells: No mastoid effusion. Orbits: No acute process. IMPRESSION: No acute intracranial process. Electronically signed by: Yao Villagomez M.D. 12/24/23 21:27 PM
[2023-12-24] MEDS: POTASSIUM CHLORIDE / WTR 10 MEQ/100 ML PLCT IV SCH (21:53)
[2023-12-24] MEDS: POTASSIUM CHLORIDE 20 MEQ/15 ML UDC PO STA (22:34)
[2023-12-24 22:52] LABS: Hematocrit (blood only) 29.7 % (37.0-47.0); Hemoglobin 10.2 g/dl (12.0-16.0); Mean Corpuscular Hemoglobin 29.1 pg (25.0-34.0); Mean Corpuscular Hgb Conc 34.3 g/dL (32.0-36.0); Mean Corpuscular Volume 84.9 fL (80.0-100.0); Mean Platelet Volume 8.9 fL (9.4-12.4); Platelet Count 190 K/uL (130-400); RDW Coefficient of Variation 14.9 % (11.5-14.5); RDW Standard Deviation 46.5 fL (36.4-46.3); White Blood Count 6.93 K/ul (4.8-10.8)
[2023-12-25] MEDS: ACETAMINOPHEN 1,000 MG/100 ML VIAL IV STA (00:58)
[2023-12-25 04:48] LABS: Hematocrit (blood only) 31.1 % (37.0-47.0); Hemoglobin 10.2 g/dl (12.0-16.0); Mean Corpuscular Hemoglobin 28.6 pg (25.0-34.0); Mean Corpuscular Hgb Conc 32.8 g/dL (32.0-36.0); Mean Corpuscular Volume 87.1 fL (80.0-100.0); Mean Platelet Volume 8.9 fL (9.4-12.4); Platelet Count 205 K/uL (130-400); RDW Coefficient of Variation 15.1 % (11.5-14.5); RDW Standard Deviation 47.9 fL (36.4-46.3); Red Blood Count 3.57 M/uL (4.20-5.40); White Blood Count 6.01 K/ul (4.8-10.8)
[2023-12-25 05:02] LABS: BUN Creatinine Ratio 26.3 (10-20); Calcium 8.2 mg/dl (8.6-10.3); Est GFR (African American) 54.9 ml/min; Est GFR (Non-African American) 47.4 ml/min; Potassium 3.8 mmol/L (3.5-5.1)
[2023-12-25 10:10] LABS: Hematocrit (blood only) 29.7 % (37.0-47.0); Hemoglobin 9.9 g/dl (12.0-16.0); Mean Corpuscular Hemoglobin 29.2 pg (25.0-34.0); Mean Corpuscular Hgb Conc 33.3 g/dL (32.0-36.0); Mean Corpuscular Volume 87.6 fL (80.0-100.0); Mean Platelet Volume 9.3 fL (9.4-12.4); Platelet Count 204 K/uL (130-400); RDW Coefficient of Variation 14.9 % (11.5-14.5); RDW Standard Deviation 47.8 fL (36.4-46.3); Red Blood Count 3.39 M/uL (4.20-5.40); White Blood Count 5.24 K/ul (4.8-10.8)
--- NOTE | 2023-12-25 10:56 | Cardiology Progress Note ---
Date of Service December 25, 2023 Assessment & Plan (1) Acute GI bleeding: (2) Elevated troponin I level: (3) Hypokalemia: (4) Hypomagnesemia: (5) Acute hyponatremia: Plan Assessment: 68 year old female presents with persistent Nausea, vomiting, confusion, black stool (in ileostomy), and marked electrolyte imbalance. Cardiology requested due to patient's history and troponin elevation. Plan: 1. Acute GI Bleed: -Patient currently NPO waiting to be seen by GI for further recommendations. -H/H stable, but to be closely monitored. -Etiology unclear; will await further input by GI and primary team. 2. Elevated Troponin -In the absence of chest pain, angina and no acute EKG changes. -Likely demand ischemia s/t to GI bleed -Review of telemetry shows no ectopy or acute events. -Will obtain echocardiogram to assess overall structure, function and assess for any wall motion abnormality. -Continue Propranolol, and Atorvastatin. ASA 81m on hold s/t GI bleed. 3. Hypokalemia 4. Hypomagnesemia 5. Hyponatremia -In the setting of 3 days history of intractable N/V and black stools. -Continue with Gentle IV fluid resuscitation with NSS, Potassium supplementation, and IV magnesium supplementation as ordered by primary team. -Close monitoring of electrolytes with ongoing supplementation as needed. 12/25/2023 Clinically stable. No signs or suggestions of acute coronary syndrome with troponin elevation secondary to demand ischemia of acute anemia and possible component of COPD exacerbation. No signs or symptoms of volume overload. Echocardiogram preserved left ventricular function and wall motion. Right ventricular enlargement and elevation pulmonary pressures No hypoxia since admission No recommendations and change in medications at this time Urged tobacco cessation Admission and Anticipated Discharge Date Admission Date: December 24, 2023 Subjective Patient seen and personally examined. Clinically improved this morning no productive cough but still with rhonchi and wheezes on forced cough No overt bleeding. Hemoglobin still trending lower No chest pains or worsening shortness of breath No dizziness or lightheadedness Review of Systems Review of Systems: All systems reviewed & are unremarkable except as noted in Subjective Physical Exam Constitutional: + frail appearing; no acute distress and not ill appearing ENMT: external ear and nose normal, oropharynx normal Neck: normal visual inspection and trachea midline Respiratory: normal respiratory effort; no respiratory distress and no labored breathing Auscultation: + diminished lung sounds and + rhonchi (With forced cough); no crackles, no rales and no wheezes Cardiovascular: Heart Sounds: normal S1, normal S2 and + murmur (+I/ systolic murmur) Vessels: dorsalis pedis pulses present; no JVD Extremities: no edema Skin: no rashes, warm and dry Psychiatric: A+Ox3, euthymic affect Results & Data Vital Signs (Past 12 Hours) Vital Signs Temp Pulse Resp BP Pulse Ox O2 Del Method 12/25/23 08:11 36.8 C 88 20 110/67 96 Room Air 12/25/23 02:40 36.7 C 82 16 106/70 96 Room Air 12/24/23 23:54 36.3 C L 82 18 103/70 94 Room Air Laboratory Results Laboratory Results - last 24 hr 12/24/23 12/24/23 12/24/23 10:48 11:29 11:37 WBC 10.66 RBC 3.83 L Hgb 11.0 L Hct 32.6 L MCV 85.1 MCH 28.7 MCHC 33.7 RDW Std Deviation 45.5 RDW Coeff of Chelle 14.8 H Plt Count 239 MPV 8.9 L Immature Gran % (Auto) 1.1 Neut % (Auto) 86.9 Lymph % (Auto) 4.1 Wetzel % (Auto) 7.8 Eos % (Auto) 0.0 Baso % (Auto) 0.1 Neut # (Auto) 9.26 H Lymph # (Auto) 0.44 L Wetzel # (Auto) 0.83 H Eos # (Auto) 0.00 Baso # (Auto) 0.01 Immature Gran # (Auto) 0.12 ABG pH 7.45 ABG pCO2 37 ABG pO2 75 L ABG HCO3 26 H ABG O2 Saturation 97.1 H ABG Base Excess 1.7 Asad Test Pos VBG pH VBG pCO2 VBG pO2 VBG HCO3 VBG O2 Saturation VBG Base Excess Oxygen Given ROOM AIR Sodium 132 L Potassium 3.1 L Chloride 95 L Carbon Dioxide 29 Anion Gap 8 BUN 52 H D Creatinine 1.67 H D Est Cr Clr Drug Dosing 29.7 Est GFR ( Amer) 36.1 Est GFR (Non-Af Amer) 31.1 BUN/Creatinine Ratio 31.1 H Glucose 143 H POC Glucose 151 H Estimat Average Glucose 143 Hemoglobin A1c 6.6 H Calcium 8.4 L Phosphorus 2.6 Magnesium 2.3 Ammonia Troponin I High Sens 65.7 H* D Stl C. cayetanensis PCR Stool Rotavirus A PCR Stl Adenov F PCR Stool Astrovirus (PCR) Stool Campylobacter PCR Stl C. diff Tox B Gene Stool Cryptosporidium PCR Stl E.coli Shiga Tox PCR Stl Enterotoxigenic E PCR Stool EPEC (PCR) Stool EAEC (PCR) Stl E. histolytica PCR Stool Giardia Lamblia PCR Stool Salmonella PCR Stool Sapovirus (PCR) Stl P. shigelloides PCR Stl Shigella/EIEC PCR St Y.enterocolitica PCR Stool Vibrio (PCR) Stl Vibrio cholerae PCR Stl Norovirus GI/GII PCR 12/24/23 12/24/23 12/24/23 12:55 16:29 16:39 WBC 7.98 RBC 3.50 L Hgb 10.3 L Hct 29.6 L MCV 84.6 MCH 29.4 MCHC 34.8 RDW Std Deviation 46.2 RDW Coeff of Chelle 15.0 H Plt Count 211 MPV 8.7 L Immature Gran % (Auto) Neut % (Auto) Lymph % (Auto) Wetzel % (Auto) Eos % (Auto) Baso % (Auto) Neut # (Auto) Lymph # (Auto) Wetzel # (Auto) Eos # (Auto) Baso # (Auto) Immature Gran # (Auto) ABG pH ABG pCO2 ABG pO2 ABG HCO3 ABG O2 Saturation ABG Base Excess Asad Test VBG pH VBG pCO2 VBG pO2 VBG HCO3 VBG O2 Saturation VBG Base Excess Oxygen Given Sodium Potassium Chloride Carbon Dioxide Anion Gap BUN Creatinine Est Cr Clr Drug Dosing Est GFR ( Amer) Est GFR (Non-Af Amer) BUN/Creatinine Ratio Glucose POC Glucose 84 Estimat Average Glucose Hemoglobin A1c Calcium Phosphorus Magnesium Ammonia Troponin I High Sens 53.4 H* D Stl C. cayetanensis PCR Stool Rotavirus A PCR Stl Adenov F PCR Stool Astrovirus (PCR) Stool Campylobacter PCR Stl C. diff Tox B Gene Stool Cryptosporidium PCR Stl E.coli Shiga Tox PCR Stl Enterotoxigenic E PCR Stool EPEC (PCR) Stool EAEC (PCR) Stl E. histolytica PCR Stool Giardia Lamblia PCR Stool Salmonella PCR Stool Sapovirus (PCR) Stl P. shigelloides PCR Stl Shigella/EIEC PCR St Y.enterocolitica PCR Stool Vibrio (PCR) Stl Vibrio cholerae PCR Stl Norovirus GI/GII PCR 12/24/23 12/24/23 12/24/23 19:21 20:14 20:21 WBC RBC Hgb Hct MCV MCH MCHC RDW Std Deviation RDW Coeff of Chelle Plt Count MPV Immature Gran % (Auto) Neut % (Auto) Lymph % (Auto) Wetzel % (Auto) Eos % (Auto) Baso % (Auto) Neut # (Auto) Lymph # (Auto) Wetzel # (Auto) Eos # (Auto) Baso # (Auto) Immature Gran # (Auto) ABG pH ABG pCO2 ABG pO2 ABG HCO3 ABG O2 Saturation ABG Base Excess Asad Test VBG pH 7.35 L VBG pCO2 52 H VBG pO2 22 VBG HCO3 29 VBG O2 Saturation < 60.0 VBG Base Excess 2.1 Oxygen Given Sodium 134 L Potassium 3.0 L Chloride 99 Carbon Dioxide 26 Anion Gap 9 BUN 39 H Creatinine 1.38 H Est Cr Clr Drug Dosing 35.9 Est GFR ( Amer) 45.4 Est GFR (Non-Af Amer) 39.2 BUN/Creatinine Ratio 28.3 H Glucose 125 H POC Glucose 106 H Estimat Average Glucose Hemoglobin A1c Calcium 8.3 L Phosphorus Magnesium 2.0 Ammonia Troponin I High Sens 44.2 H Stl C. cayetanensis PCR Stool Rotavirus A PCR Stl Adenov F 40/41 PCR Stool Astrovirus (PCR) Stool Campylobacter PCR Stl C. diff Tox B Gene Stool Cryptosporidium PCR Stl E.coli Shiga Tox PCR Stl Enterotoxigenic E PCR Stool EPEC (PCR) Stool EAEC (PCR) Stl E. histolytica PCR Stool Giardia Lamblia PCR Stool Salmonella PCR Stool Sapovirus (PCR) Stl P. shigelloides PCR Stl Shigella/EIEC PCR St Y.enterocolitica PCR Stool Vibrio (PCR) Stl Vibrio cholerae PCR Stl Norovirus GI/GII PCR 12/24/23 12/24/23 12/25/23 22:31 Unknown 00:23 WBC 6.93 RBC 3.50 L Hgb 10.2 L Hct 29.7 L MCV 84.9 MCH 29.1 MCHC 34.3 RDW Std Deviation 46.5 H RDW Coeff of Chelle 14.9 H Plt Count 190 MPV 8.9 L Immature Gran % (Auto) Neut % (Auto) Lymph % (Auto) Wetzel % (Auto) Eos % (Auto) Baso % (Auto) Neut # (Auto) Lymph # (Auto) Wetzel # (Auto) Eos # (Auto) Baso # (Auto) Immature Gran # (Auto) ABG pH ABG pCO2 ABG pO2 ABG HCO3 ABG O2 Saturation ABG Base Excess Asad Test VBG pH VBG pCO2 VBG pO2 VBG HCO3 VBG O2 Saturation VBG Base Excess Oxygen Given Sodium Potassium Chloride Carbon Dioxide Anion Gap BUN Creatinine Est Cr Clr Drug Dosing Est GFR ( Amer) Est GFR (Non-Af Amer) BUN/Creatinine Ratio Glucose POC Glucose 117 H Estimat Average Glucose Hemoglobin A1c Calcium Phosphorus Magnesium Ammonia 13.0 L Troponin I High Sens Stl C. cayetanensis PCR Not Detected Stool Rotavirus A PCR Not Detected Stl Adenov F 40/41 PCR Not Detected Stool Astrovirus (PCR) Not Detected Stool Campylobacter PCR Not Detected Stl C. diff Tox B Gene Negative Cdiff Gene Stool Cryptosporidium PCR Not Detected Stl E.coli Shiga Tox PCR Not Detected Stl Enterotoxigenic E PCR Not Detected Stool EPEC (PCR) Not Detected Stool EAEC (PCR) Not Detected Stl E. histolytica PCR Not Detected Stool Giardia Lamblia PCR Not Detected Stool Salmonella PCR Not Detected Stool Sapovirus (PCR) Not Detected Stl P. shigelloides PCR Not Detected Stl Shigella/EIEC PCR Not Detected St Y.enterocolitica PCR Not Detected Stool Vibrio (PCR) Not Detected Stl Vibrio cholerae PCR Not Detected Stl Norovirus GI/GII PCR Not Detected 12/25/23 12/25/23 12/25/23 04:23 05:55 05:59 WBC 6.01 5.24 RBC 3.57 L 3.39 L Hgb 10.2 L 9.9 L Hct 31.1 L 29.7 L MCV 87.1 87.6 MCH 28.6 29.2 MCHC 32.8 33.3 RDW Std Deviation 47.9 H 47.8 H RDW Coeff of Chelle 15.1 H 14.9 H Plt Count 205 204 MPV 8.9 L 9.3 L Immature Gran % (Auto) Neut % (Auto) Lymph % (Auto) Wetzel % (Auto) Eos % (Auto) Baso % (Auto) Neut # (Auto) Lymph # (Auto) Wetzel # (Auto) Eos # (Auto) Baso # (Auto) Immature Gran # (Auto) ABG pH ABG pCO2 ABG pO2 ABG HCO3 ABG O2 Saturation ABG Base Excess Asad Test VBG pH VBG pCO2 VBG pO2 VBG HCO3 VBG O2 Saturation VBG Base Excess Oxygen Given Sodium 134 L Potassium 3.8 D Chloride 102 Carbon Dioxide 26 Anion Gap 6 BUN 31 H Creatinine 1.18 Est Cr Clr Drug Dosing 42.0 Est GFR ( Amer) 54.9 Est GFR (Non-Af Amer) 47.4 BUN/Creatinine Ratio 26.3 H Glucose 70 POC Glucose 108 H Estimat Average Glucose Hemoglobin A1c Calcium 8.2 L Phosphorus Magnesium Ammonia Troponin I High Sens Stl C. cayetanensis PCR Stool Rotavirus A PCR Stl Adenov F 40/41 PCR Stool Astrovirus (PCR) Stool Campylobacter PCR Stl C. diff Tox B Gene Stool Cryptosporidium PCR Stl E.coli Shiga Tox PCR Stl Enterotoxigenic E PCR Stool EPEC (PCR) Stool EAEC (PCR) Stl E. histolytica PCR Stool Giardia Lamblia PCR Stool Salmonella PCR Stool Sapovirus (PCR) Stl P. shigelloides PCR Stl Shigella/EIEC PCR St Y.enterocolitica PCR Stool Vibrio (PCR) Stl Vibrio cholerae PCR Stl Norovirus GI/GII PCR
[2023-12-25] MEDS: LIDOCAINE 5% 1 PATCH TD SCH ×2 (12:50→19:36)
[2023-12-25] MEDS: ACETAMINOPHEN 325 MG TAB PO SCH (12:50)
--- NOTE | 2023-12-25 12:55 | Hospitalist Progress Note ---
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 Patient had reported she is getting somewhat confused and not remembering things which prompted her to come to the ER. Upper GI bleed Anemia Ileostomy had black stools on presentation. Adoption Counselor today HB on admission was 13.5 and subsequently dropped to 10s Drop likely from blood loss plus dilutional as all cell lines dropped Review of recent results show baseline may be around 10-11 Hb is 9.9 today GI evaluation noted No EGD planned for now Will change from PPI gtt to IV PPI BID Monitor Hb. Full liquid diet Nausea and vomiting Possible ileus as noted on CT abdomen Resolved Having BM in ostomy bag Altered mental status Confusion/Drowsiness Likely due to medication side effects/Opioid side effect Patient got Narcan on 12/24/23 for AMS, difficult to rouse with resolution of drowsiness/confusion Reviewed patient's PDMP Educated patient on opioid side effects All opioids stopped at this time Will try to control pain without opioids. Cannot do NSAIDS due to GIB Scheduled tylenol, lidocaine patch Continue home gabapentin Will monitor Hypokalemia Hypomagnesia Resolved Monitor Hyponatremia Sodium 131 on admission Na is 134 today JOSEPHINE Baseline creatinine 0.9 Presented with creatinine of 2.6 Avoid nephrotoxic agents Got IVF JOSEPHINE resolving Cr is 1.18 today IVF stopped now patient is tolerating po well Monitor Elevated troponin Troponin 101 EKG did not show any acute abnormalities Likely demand ischemia in setting of anemia/GIB TTE showed LV is normal, mod conc LVH, EF 60-65%, Grade I DD, mild AV sclerosis, Trace AR, RV is mod dilated, RV systolic function is mildly reduced, mild TR, RVSP 40-50 History of heart failure with preserved ejection fraction Continue to hold lasix at this time Euvolemic IVF stopped Hyperlipidemia On statin Diabetes Hold metformin Sliding scale Monitor Chronic back pain Stopped opioids as above Restless leg syndrome On ropinirole History of COPD Chronic respiratory failure on 2 L oxygen Continue home inhalers Essential tremor Hypertension On propranolol Will monitor History of lung cancer S/p radiation treatment in 01/2023 History of squamous cell carcinoma of anal canal Status post chemoradiation and diverting ileostomy in 2020 Tobacco abuse Counseled regarding smoking cessation Nicotine patch DVT prophylaxis SCDs for now Full code. I spent a total of 50 minutes coordinating, documenting and providing care for this patient excluding time spent in performance of separately billed services Admission and Anticipated Discharge Date Admission Date: December 24, 2023 Subjective Per RN, patient was difficult to arouse last evening. Got a CT head which was unremarkable Got narcan and drowsiness resolved RN also reported that patient's boyfriend reported she gets periods at home when she is very drowsy like that or confused. Patient seen and examined Patient is fully alert oriented to person, place and time Reports feeling better Reported that drowsiness and confusion she was having at home is likely due to build up of opioids in her system. She reported concerns about possible opioid effect/overdose She reports she was on Morphine ER 15mg (was initially on twice a day but has been cutting it down to once a day now) and then she uses dilaudid as needed for breakthrough pain for her chronic back pain and leg pains. She denied any chest pain, nausea, vomiting, abd pain, dizziness today Reports cough. Denied SOB Denied dysuria, freq, urgency,hematuria,fever or chills Physical Exam Constitutional: + well hydrated; no acute distress Eyes: PERRL, conjunctivae normal, anicteric sclerae ENMT: external ear and nose normal, oropharynx normal Respiratory: normal respiratory effort, lungs clear to auscultation Cardiovascular: Rate/Rhythm: regular rate and regular rhythm Gastrointestinal (Abdomen): Soft, nontender, ostomy bag with dark liquid stool (Clearing up compared to yesterday) Musculoskeletal: No pedal edema Neurologic: PERRL, EOMI, accommodation nl, no face palsy, no dysarthria Psychiatric: A+Ox3, euthymic affect Results & Data Results & Data Vital Signs (Past 12 Hours) Vital Signs Temp Pulse Resp BP Pulse Ox O2 Del Method 12/25/23 11:50 36.6 C 84 18 97/56 L 97 Room Air 12/25/23 08:11 36.8 C 88 20 110/67 96 Room Air 12/25/23 02:40 36.7 C 82 16 106/70 96 Room Air Laboratory Results Abnormal lab results 12/24/23 12/24/23 12/24/23 Range/Units 12:55 16:39 19:21 RBC 3.50 L (4.20-5.40) M/uL Hgb 10.3 L (12.0-16.0) g/dl Hct 29.6 L (37.0-47.0) % RDW Std Deviation (36.4-46.3) fL RDW Coeff of Chelle 15.0 H (11.5-14.5) % MPV 8.7 L (9.4-12.4) fL VBG pH (7.36-7.41) VBG pCO2 (38-50) mmHg Sodium 134 L (136-145) mmol/L Potassium 3.0 L (3.5-5.1) mmol/L BUN 39 H (6-23) mg/dl Creatinine 1.38 H (0.6-1.2) mg/dl BUN/Creatinine Ratio 28.3 H (10-20) Glucose 125 H (70-99(Fasting)) mg/dl POC Glucose (70-99) mg/dl Calcium 8.3 L (8.6-10.3) mg/dl Ammonia (18-72) umol/L Troponin I High Sens 53.4 H* D 44.2 H (0-14) pg/ml 12/24/23 12/24/23 12/24/23 Range/Units 20:14 20:21 22:31 RBC 3.50 L (4.20-5.40) M/uL Hgb 10.2 L (12.0-16.0) g/dl Hct 29.7 L (37.0-47.0) % RDW Std Deviation 46.5 H (36.4-46.3) fL RDW Coeff of Chelle 14.9 H (11.5-14.5) % MPV 8.9 L (9.4-12.4) fL VBG pH 7.35 L (7.36-7.41) VBG pCO2 52 H (38-50) mmHg Sodium (136-145) mmol/L Potassium (3.5-5.1) mmol/L BUN (6-23) mg/dl Creatinine (0.6-1.2) mg/dl BUN/Creatinine Ratio (10-20) Glucose (70-99(Fasting)) mg/dl POC Glucose 106 H (70-99) mg/dl Calcium (8.6-10.3) mg/dl Ammonia 13.0 L (18-72) umol/L Troponin I High Sens (0-14) pg/ml 12/25/23 12/25/23 12/25/23 Range/Units 00:23 04:23 05:55 RBC 3.57 L (4.20-5.40) M/uL Hgb 10.2 L (12.0-16.0) g/dl Hct 31.1 L (37.0-47.0) % RDW Std Deviation 47.9 H (36.4-46.3) fL RDW Coeff of Chelle 15.1 H (11.5-14.5) % MPV 8.9 L (9.4-12.4) fL VBG pH (7.36-7.41) VBG pCO2 (38-50) mmHg Sodium 134 L (136-145) mmol/L Potassium (3.5-5.1) mmol/L BUN 31 H (6-23) mg/dl Creatinine (0.6-1.2) mg/dl BUN/Creatinine Ratio 26.3 H (10-20) Glucose (70-99(Fasting)) mg/dl POC Glucose 117 H 108 H (70-99) mg/dl Calcium 8.2 L (8.6-10.3) mg/dl Ammonia (18-72) umol/L Troponin I High Sens (0-14) pg/ml 12/25/23 Range/Units 05:59 RBC 3.39 L (4.20-5.40) M/uL Hgb 9.9 L (12.0-16.0) g/dl Hct 29.7 L (37.0-47.0) % RDW Std Deviation 47.8 H (36.4-46.3) fL RDW Coeff of Chelle 14.9 H (11.5-14.5) % MPV 9.3 L (9.4-12.4) fL VBG pH (7.36-7.41) VBG pCO2 (38-50) mmHg Sodium (136-145) mmol/L Potassium (3.5-5.1) mmol/L BUN (6-23) mg/dl Creatinine (0.6-1.2) mg/dl BUN/Creatinine Ratio (10-20) Glucose (70-99(Fasting)) mg/dl POC Glucose (70-99) mg/dl Calcium (8.6-10.3) mg/dl Ammonia (18-72) umol/L Troponin I High Sens (0-14) pg/ml
[2023-12-25 16:46] LABS: Hematocrit (blood only) 31.1 % (37.0-47.0); Hemoglobin 10.5 g/dl (12.0-16.0); Mean Corpuscular Hgb Conc 33.8 g/dL (32.0-36.0); Mean Corpuscular Volume 85.9 fL (80.0-100.0); Mean Platelet Volume 9.1 fL (9.4-12.4); Platelet Count 226 K/uL (130-400); RDW Coefficient of Variation 14.9 % (11.5-14.5); RDW Standard Deviation 47.1 fL (36.4-46.3); Red Blood Count 3.62 M/uL (4.20-5.40); White Blood Count 6.96 K/ul (4.8-10.8)
[2023-12-26 07:55] LABS: BUN Creatinine Ratio 14.3 (10-20); Calcium 8.6 mg/dl (8.6-10.3); Est GFR (African American) 63.2 ml/min; Est GFR (Non-African American) 54.5 ml/min; Hematocrit (blood only) 32.1 % (37.0-47.0); Hemoglobin 10.6 g/dl (12.0-16.0); Magnesium 1.4 mg/dl (1.7-2.4); Mean Corpuscular Hemoglobin 29.1 pg (25.0-34.0); Mean Corpuscular Volume 88.2 fL (80.0-100.0); Mean Platelet Volume 9.1 fL (9.4-12.4); Phosphorus 2.6 mg/dl (2.5-4.9); Platelet Count 216 K/uL (130-400); Potassium 4.2 mmol/L (3.5-5.1); RDW Coefficient of Variation 14.6 % (11.5-14.5); RDW Standard Deviation 47.4 fL (36.4-46.3); Red Blood Count 3.64 M/uL (4.20-5.40)
[2023-12-26 11:55] VITALS: RESP 20; TEMP 98.2; O2SAT 96
--- NOTE | 2023-12-26 13:28 | Discharge Summary ---
Date of Service December 26, 2023 Admission HPI Per Admitting Provider 68-year-old female with past medical history significant for type 2 diabetes, hyperlipidemia, history of COPD, supplemental oxygen dependent, chronic heart failure with preserved ejection fraction, hypertension, aortic valve sclerosis, atherosclerosis of both carotid arteries, GERD, fibromyalgia, restless leg syndrome, osteoporosis, essential tremor, migraine, cerebral atrophy, iron deficiency anemia, tobacco use disorder, history of lung cancer s/p radiation treatment 01/2023, history of squamous cell cancer of anal canal status post chemoradiation and diverting ileostomy 2020, chronic back pain comes because of persistent nausea and vomiting since last 2 to 3 days and also the vomitus was dark in color and on the ileostomy bag stools are also black color. Patient also thinks she is getting somewhat confused and not remembering things which prompted her to come to the ER. Denies any fevers. Has some chest discomfort. Has shortness of breath. Has abdominal pain. Has mild headache. No cough. C urrently hemodynamics are okay.Patient can tell her name, knows she is in the hospital, knows current month but could not tell current year. Otherwise answering appropriately and able to give her history. Past medical history. As mentioned above Past surgical history. Anal fistula surgery. Breast biopsy. Colonoscopy. Destruction of anal lesions. Drainage of rectal abscess. Hemorrhoidectomy. Ileostomy. Injection of the lumbar's thoracic spine. Bilateral knee arthroscopy. Laparoscopic cholecystectomy. Excision of neck chest tumor. Nipple/areolar reconstruction. Repair of incisional hernia. Left arthroplasty interphalangeal. Bilateral shoulder surgery. Suspension of vagina. Trigger finger release. Total abdominal hysterectomy with removal of tubes. Social history. Smokes 0.5 pack a day for last 43 years. No alcohol use. No drug use. Family history. Mother had breast cancer. Lung cancer. Thyroid cancer. Father had diabetes. Son has rheumatoid arthritis. Paternal cousin has breast cancer. Paternal grandmother had arthritis. Admission Exam Per Admitting Provider General- Not in distress Head- atraumatic Eyes- PERRL. ENT- oropharynx clear Neck- supple, no JVD. Lungs- clear to auscultation no wheezing or crackles Heart- regular rate and rhythm; no murmur, no gallop. Abdomen- normal bowel sounds, soft, nontender, ileostomy bag seen with dark stools. Extremities- no pretibial edema, no erythema seen Neuro- alert, oriented PERRL, no facial palsy; no dysarthria; moves extremi ties. Principal Diagnosis Upper GI bleed Anemia Acute kidney injury Medication side effect Discharge Exam Constitutional + well hydrated; no acute distress Eyes PERRL, conjunctivae normal, anicteric sclerae ENMT external ear and nose normal, oropharynx normal Respiratory normal respiratory effort, lungs clear to auscultation Cardiovascular Rate/Rhythm: regular rate and regular rhythm Gastrointestinal (Abdomen) Soft, nontender, ostomy bag with greenish stool Musculoskeletal no cyanosis or clubbing, extremities motor strength 5/5 Neurologic PERRL, EOMI, accommodation nl, no face palsy, no dysarthria Psychiatric A+Ox3, euthymic affect Discharge Data Allergies Allergy/AdvReac Type Severity Reaction Status Date / Time adhesive Allergy Intermediate SWELLING/RA Verified 12/24/23 01:19 SH Consultations 12/24/23 01:06 ED Decision to Admit Stat 12/24/23 05:09 Consult Gastroenterology Routine 12/24/23 07:59 Consult Cardiology Routine Ordered Studies 12/23/23 22:28 CT abd pelvis wo con Stat Exam is limited due to lack of contrast material Lung bases: No consolidation. There is a calcification in the right lung base most compatible with old granulomatous disease. ABDOMEN: Liver: The liver is enlarged. There are small calcifications within the liver. There is a 1.2 cm lucency in the right lobe of the liver (series 2, image 26). Gallbladder and bile ducts: The patient is status post cholecystectomy.. No ductal dilation. Pancreas: The visualized portions of the pancreas, on this noncontrast study, are grossly unremarkable.. Spleen: No splenomegaly. There are small calcifications within the spleen. Adrenals: Heart is Kidneys and ureters: No obstructing stones. No hydronephrosis. Stomach and bowel: The stomach is distended containing fluid and air. The colon is relatively decompressed.. An ostomy site is noted in the right lower quadrant.. There is distended loops of air-filled small bowel. PELVIS: Appendix: Unremarkable CT scan appearance noted the appendix.. Bladder: Urinary bladder is distended. No bladder calculi are noted.. Reproductive: Patient appears to be status post hysterectomy.. ABDOMEN and PELVIS: Intraperitoneal space: No free air. No significant fluid collection. Bones/joints: There are marked degenerative changes in the spine.. Soft tissues: Unremarkable. Vasculature: There are atherosclerotic changes. No abdominal aortic aneurysm. Lymph nodes: No enlarged lymph nodes. IMPRESSION: Limited exam. An ostomy site is noted in the right lower quadrant.. There is distended loops of air-filled small bowel. This may represent an ileus. There is evidence for old granulomatous disease. 1.2 cm lucency in the right lobe of the liver may represent a cyst. 12/24/23 19:43 CT head/brain wo con Stat Brain: No hemorrhage. No apparent acute cortical infarct. No mass lesion or midline shift. Ventricles: No hydrocephalus. Bones/joints: No acute fracture. Soft tissues: Unremarkable. Sinuses: No acute sinusitis. Mastoid air cells: No mastoid effusion. Orbits: No acute process. IMPRESSION: No acute intracranial process. Hospital Course (1) GI bleed: 68-year-old female with past medical history significant for type 2 diabetes, hyperlipidemia, history of COPD, supplemental oxygen dependent, chronic heart failure with preserved ejection fraction, hypertension, aortic valve sclerosis, atherosclerosis of both carotid arteries, GERD, fibromyalgia, restless leg syndrome, osteoporosis, essential tremor, migraine, cerebral atrophy, iron deficiency anemia, tobacco use disorder, history of lung cancer s/p radiation treatment 01/2023, history of squamous cell cancer of anal canal status post chemoradiation and diverting ileostomy 2020, chronic back pain comes because of persistent nausea and vomiting for 2 to 3 days and also the vomitus was dark in color and on the ileostomy bag stools are also black color. Patient had reported she has beeb getting somewhat confused and not remembering things which prompted her to come to the ER. Upper GI bleed Anemia Ileostomy had black stools on presentation. National Sales Executive today HB on admission was 13.5 and subsequently dropped to 10s Drop likely from blood loss plus dilutional as all cell lines dropped Review of recent results show baseline may be around 10-11 Hb has been stable in 10s Was started on IV PPI drip GI evaluated and do not recommend EGD inpatient Patient needs to follow up with GI for endoscopy Dark stool resolved. Discharged on PO Pantoprazole 40mg BID Nausea and vomiting Possible ileus as noted on CT abdomen Resolved Altered mental status Confusion/Drowsiness Likely due to medication side effects/Opioid side effect On first day of inpatient hospitalization, patient was quite altered, drowsy and got difficult to arouse at some point. CT head did not show any acute abnormalities She got Narcan with resolution of AMS and confusion Reviewed patient's PDMP Educated patient on opioid side effects Per RN, boyfriend also reported she had been more drowsy and confused at home for sometime All opioids stopped at this time Confusion has completely resolved since reversal with narcan Pain has been currently controlled without opioids for over 24hrs. Patient agreeable to try pain control without opioids. Discharged on scheduled tylenol and lidocaine patch Avoid NSAIDS due to GI bleed Hypokalemia Hypomagnesia Resolved Discharged on po mag Hyponatremia Sodium 131 on admission Na is 132 today JOSEPHINE Baseline creatinine 0.9 Presented with creatinine of 2.6 Got IVF JOSEPHINE resolved. Cr is 1.05 today Elevated troponin Demand ischemia in setting of GI bleed Troponin 101 EKG did not show any acute abnormalities Likely demand ischemia in setting of anemia/GIB TTE showed LV is normal, mod conc LVH, EF 60-65%, Grade I DD, mild AV sclerosis, Trace AR, RV is mod dilated, RV systolic function is mildly reduced, mild TR, RVSP 40-50 History of heart failure with preserved ejection fraction Resume home diuretic on discharge Hyperlipidemia On statin Diabetes Continue home antidiabetics Chronic back pain Stopped opioids as above Restless leg syndrome On ropinirole History of COPD Chronic respiratory failure on 2 L oxygen Continue home inhalers Essential tremor Hypertension On propranolol History of lung cancer S/p radiation treatment in 01/2023 History of squamous cell carcinoma of anal canal Status post chemoradiation and diverting ileostomy in 2020 Tobacco abuse Counseled regarding smoking cessation Total Time Total Time Spent Total Time Spent (In Minutes): 35 Total Time Includes: Examination of the Patient, Discharge Planning and Medication Reconciliation Discharge Plan Discharge Items Patient Disposition: Home - Self-Care Reason For Visit: GI BLEED, CONFUSION Discharge Diagnosis: Upper GI bleed Anemia Acute kidney injury Medication side effect Condition on Discharge: Fair Activity: Resume your previous activity Lifting: None Non-emergency contact: Primary Care Provider and Senior Instrumentation Engineer Call non-emergency contact if: you have any medication questions and your symptoms worsen Follow-up/Referrals: Sukh Holman MD [Primary Care Provider] - Diet: Carb Consistent or DM2, Heart Healthy and Low Sodium (2gm) Addtl Attending Provider Instructions: Ms Donis You came to the hospital due to increased confusion, nausea, vomiting and black stools. You were evaluated and managed for the above listed diagnoses. Your home opioid medications were stopped due to side effects. Please stop taking the dilaudid and morphine. Your pain is controlled on scheduled tylenol and lidocaine patch. Please avoid NSAIDS (Ibuprofen, advil, motrin, naproxen etc) Please ensure follow up with your Oncologist. Your pantoprazole was increased to twice a day Please ensure follow up with Gastroenterology for endoscopy Please ensure follow up with your Primary Doctor. It was a pleasure taking care of you. Pending Studies at Discharge: No Stand-Alone Forms: [facility] Planitax, Smoking Cessation Medications and DC Order Prescriptions: New acetaminophen [Tylenol] 325 mg capsule 650 mg PO Q6H Qty: 90 0RF lidocaine 5 % adhesive patch,medicated 2 patch topical DAILY Qty: 30 0RF Rx Instructions: leave on most painful area for up to 12 hrs magnesium 200 mg tablet 200 mg PO DAILY Qty: 14 0RF Continued prochlorperazine maleate [Compazine] 10 mg tablet 10 mg PO Q6H PRN (Reason: Constipation) ondansetron HCl 8 mg tablet 8 mg PO Q8H PRN (Reason: Nausea) albuterol sulfate 90 mcg/actuation HFA aerosol inhaler 2 puff inhalation Q4H PRN (Reason: Shortness Of Breath Or Wheezing) trazodone 50 mg tablet 50 mg PO HS metformin 1,000 mg tablet 1,000 mg PO BIDM fluticasone propionate 50 mcg/actuation spray,suspension 2 spray INTRANASAL QAM PRN (Reason: Allergy Symptoms) atorvastatin 20 mg Tablet 20 mg PO HS aspirin 81 mg Tablet,Delayed Release (Dr/Ec) 81 mg PO QAM cyclobenzaprine 10 mg tablet 10 mg PO TID Trelegy Ellipta 200-62.5-25 mcg blister with device 1 inh INHALATION DAILY propranolol 20 mg tablet 20 mg PO AMHS furosemide 40 mg tablet 40 mg PO DAILY PRN (Reason: Edema) alendronate 70 mg tablet 70 mg PO WK Rx Instructions: sundays nystatin [Klayesta] 100,000 unit/gram powder 1 applic TOPICAL TID bupropion HCl 300 mg tablet extended release 24 hr 300 mg PO QAM ropinirole 6 mg tablet extended release 24 hr 6 mg PO HS gabapentin 300 mg capsule 300 mg PO TID Changed pantoprazole [Protonix] 40 mg tablet,delayed release (/EC) 40 mg PO BID Qty: 60 0RF Discontinued hydromorphone [Dilaudid] 4 mg tablet 4 mg PO Q4H PRN (Reason: pain) morphine 15 mg tablet extended release 15 mg PO QAM Discharge Orders: Discharge Order (Routine); Ordered 12/26/23 Ordered By: Trinity Mckinnon/Other Patient Handouts: Managing Type 2 Diabetes Admission Data Admit Date/Time: 12/24/23 03:14 Attending Provider: Trinity Conti I. Admit Provider: Leandro Contreras Primary Care Provider: Sukh Holman Other Providers: Leandro Contreras; Geovany Adorno; Terrence Sauer Other Interventions: Discharge Summary Assessment (RN) Last Done: 12/26/23 13:33
[2023-12-26 13:34] VITALS: BP 114/67
[2023-12-26 14:06] VITALS: PULSE 85
== END 2023-12-26 14:39 | disposition home or self-care (01) | DRG 378 ==
LOC: ED 21:03 → 2S 12-24 03:14 → INTOOBSV 12-24 03:14 → 2S 12-24 05:34

== ENCOUNTER 2024-04-09 15:52 | Inpatient (IN) ==
--- OUTSIDE RECORDS SUMMARY | 2024-04-09 15:59 | External Medical Summary | Summary of Care ---
Author Name Unknown Organization [facility] Address [address] [place] [address] Phone [phone] Care Team Providers Care Spray Cementer Name Role Phone Rigo Holman MD Primary Care Provider [phone] Reason for Visit * Reason Onset Date Comments Medication Refill 04/06/2024 Encounter Details Date Type Department Care Team (Late st Contact Info) Description 04/06/2024 Refill Family Practice [facility] [address] [place] [address] Rigo Holman MD [address] [place] [address] Anal squamous cell carcinoma (HCC) Allergies Active Allergy Reactions Criticality Noted Date Comments Adhesive Tape Itching,Rash 07/29/2016 Paper tape is fine documented as of this encounter (statuses as of 04/09/2024) Medications Blood Glucose Monitoring Suppl (ONE TOUCH ULTRA [...] ONCE DAILY 48 g 1 4 Active DULoxetine HCl 30 MG [...] for Pain, Severe. 100 mL 4 Active Furosemide 40 MG Oral Tablet (Lasix) Take 1 Tablet by mouth as needed for Other (swelling, fluid retention). 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 1 Each 1 4 Active buPROPion HCl ER (XL) 300 MG Oral Tablet Extended Release 24 Hour (Wellbutrin XL)Indications:F ibromyalgia,Depr ession Take 1 Tablet by mouth in the morning. 90 Tablet 3 4 Active Lidocaine 4 % External Patch Place 1 Patch topically on the skin daily. Active Magnesium 200 MG Oral Tablet Take 1 Tablet by mouth in the morning. Active Pantoprazole Sodium 40 MG Oral Tablet Delayed Release (Protonix)Indica tions:Reflux esophagitis Take 1 Tablet by mouth in the morning and 1 Tablet in the evening. 4 Active Atorvastatin Calcium 20 MG Oral Tablet (Lipitor)Indicat ions:Dyslipidemi a, goal LDL below 100 TAKE 1 TABLET BY MOUTH EVERY DAY 90 Tablet 3 4 Active Cyclobenzaprine HCl 10 MG Oral Tablet (Flexeril)Indica tions:Spasm of muscle Take 1 Tablet by mouth in the morning and 1 Tablet at noon and 1 Tablet before bedtime. 270 Tablet 3 4 Active Alendronate Sodium 70 MG Oral Tablet (Fosamax)Indicat ions:weekly on sundays TAKE 1 TABLET (70 MG) BY MOUTH ONCE A WEEK 12 Tablet 3 4 Active Gabapentin 300 MG Oral Capsule (Neurontin)Indic ations:Fibromyal giovani Take 1 Capsule by mouth in the morning and 1 Capsule before bedtime. 180 Capsule 3 4 Active Diclofenac Sodium 1 % External Gel (Voltaren)Indica tions:Fibromyalg ia Apply topically to affected area 4 times a day as needed for Pain. Apply to joints as needed for arthritis pain 4 Active Ondansetron HCl 8 MG Oral Tablet (Zofran) Take 1 Tablet by mouth every 8 hours as needed for Nausea. 30 Tablet 3 4 Active HYDROmorphone HCl 4 MG Oral Tablet (Dilaudid)Indica tions:Anal squamous cell carcinoma (HCC) Take 1 Tablet by mouth every 4 hours as needed for Pain, Severe or Pain, Breakthrough. 30 Tablet 4 Active HYDROmorphone HCl 4 MG Oral Tablet (Dilaudid)Indica tions:Anal squamous cell carcinoma (HCC) Take 1 Tablet by mouth every 4 hours as needed for Pain, Severe or Pain, Breakthrough. 30 Tablet 4 04/06/20 24 Discontin ued(Refil l) tiZANidine HCl 2 MG Oral Tablet (Zanaflex) Take 1 Tablet by mouth every 6 hours as needed for Muscle spasms. 30 Tablet 4 04/06/20 24 Discontin ued(Refil l) documented as of this encounter (statuses as of 04/09/2024) Active Problems Problem Noted Date Diagnosed Date Chronic kidney disease, stage 3a 01/24/2024 Overview: Per CKD protocol Chronic heart failure with preserved ejection fr [...] status migrainosus, not intractable 01/25/2013 Dyslipidemia 03/27/2009 Overview (03/27/2009): Per Lipid Taxonomy. Dyslipidemia, goal LDL below 70 03/18/1998 Overview (03/27/2009): Per Lipid Taxonomy. Tobacco use disorder 10/04/1997 Fibromyalgia 10/04/1997 Gastroesophageal reflux disease with esophagitis 10/04/1997 RLS (restless legs syndrome) documented as of this encounter (statuses as of 04/09/2024) Resolved Problems Problem Noted Date Diagnosed Date [...] History of squamous cell carcinoma 07/23/2022 08/23/2023 Overview (07/23/2022): Anal Canal Medical home patient encounter 03/17/2022 [...] 02/25/201805/14 Controlled substance agreement terminated 02/27/2016 08/03/2022 Overview (06/20/2018): Per 05/2018 urine drug screen Tobacco use disorder 11/01/2015 019 Low back pain with left-sided sciatica 10/21/2015 06/07/2018 Skin lesion 10/21/2015 06/07/2018 Vertigo 07/24/2015 12/18/2016 Esophageal reflux 01/25/2013 03/16/2022 Moderate COPD (chronic obstr uctive pulmonary disease) 09/12/2012 06/20/2020 Overview (09/12/2012): Based on PFT 08/22/12 TERMINATED MEDICATION USAGE AGREEMENT 02/09/2012 02/27/2016 Overview (02/09/2012): Violated med use agreement for opioids on 02/09/12 (had been on signed agreement since 08/20/2009). NO NARCOTICS in this patient please. Benzo refills (on temazepam for sleep) through PCP only - close monitoring, pt did not violate benzos on UDS. HTN, GOAL BELOW 140/80 11/30/201107/17 Overview: Per HTN Protocol #27. MEDICATION USE AGREEMENT 08/20/2009 Overview (02/09/2012): Was for chronic pain meds and benzos - see new entry dated 02/09/12 for update HTN, GOAL BELOW 130/80 05/08/200912/02 Overview (05/08/2009): Per HTN Taxonomy. Family hx-breast malignancy 04/15/2009 02/08/2019 Torn rotator cuff 04/15/2009 08/20/2009 Carpal tunnel syndrome 04/15/200912/18 HTN, goal below 140/90 01/21/200905/08 Overview (05/08/2009): Per HTN Taxonomy. Insomnia 01/21/2009 02/08/2019 Overview (01/11/2017): ICD-10 update of inactive term Uncontrolled type 2 diabetes mellitus with diabetic neuropathy, without long-term current use of insulin 04/18/1999 02/08/2019 Overview (08/12/2015): ICD-10 update of inactive term DIAB RENAL MANIF ADULT 01/07/199906/18 INFLAM DISEASE OF BREAST 05/22/199811/2016 Tension headache 10/04/1997 12/18/2016 Menopause 10/04/1997 12/18/2016 Edema 12/18/2016 Diabetic polyneuropathy asso ciated with type 2 diabetes mellitus 08/03/2022 Lactic acidosis 03/16/2022 documented as of this encounter (statuses as of 04/09/2024) Immunizations Name Administration Dates Next Due COVID-19 mRNA, LNP-s, No Pre serve, 2-Dose Series (Pfizer) 10/03/2020,09/12/2020 H1N1 2009 Influenza, IM 05/03/2009 Hepatitis B, 20+ yrs 02/21/2013,09/11/2011,08/11 MMR - Measles/Mumps/Rubella Vaccine 09/05/2011 Meningococcal Conjugate Vacc ine (Menactra/Menveo) 11/14/2009 Pneumococcal Polysaccharide PPV23 (Pneumovax) 02/25/2021,03/04/1999 Seasonal Influenza Vac., MDV , IM, 0.5 mL (Fluzone) 02/28/2014,02/04/2012,03/06/2011,02/20,01/14/2009 Seasonal Influenza, High Dos e, Trivalent, PF, IM (Fluzone HD) 12/29/2023 Seasonal Influenza, MDCK, Tr ivalent, PF, (Flucelvax) 02/21/2013 Seasonal Influenza, PF, 6 M & above, IM , (FluLaval or Fluzone) 01/27/2021,01/22/2020,01/17/2019,01/13 Seasonal Influenza, Quadriva lent Hd (Fluzone Hd) 01/08/2023,12/29/2021 Seasonal Influenza, Quadriva lent, No Preserve, IM 11/25/2016,01/06/2016,04/19/2015 TDAP, Age 7 and older, IM (Adacel) [...] ages 0-17 years) Not on file 08/16/2023 Comments No Sex and Gender Information Value Date Recorded Sex Assigned at Female 07/01/2018 3:37 PM EDT Legal Sex Female 7:02 AM EST Gender Identity Female 07/01/2018 3:37 PM EDT Sexual Orientation Straight 07/01/2018 3: 37 PM EDT documented as of this encounter Functional Status * Are you deaf or do you have serious difficulty hearing? Answer Date of Assessment Author No 03/03/2022 12:16 AM Zara Pinead RN * Are you blind or do you have serious difficulty seeing, even when wearing glasses? Answer Date of Assessment Author No 03/03/2022 12:16 AM Zara Pineda RN * Do you have serious difficulty walking or climbing stairs? (5 years old or older) Answer Date of Assessment Author No 03/03/2022 12:16 AM Zara Pineda RN * Do you have difficulty dressing or bathing? (5 years old or older) Answer Date of Assessment Author No 03/03/2022 12:16 AM Zara Pineda RN * Because of a physical, mental, or emotional condition, do you have difficulty doing errands alone such as visiting a doctors office or shopping? (15 years old or older) Answer Date of Assessment Author No 03/03/2022 12:16 AM Zara Pineda RN documented as of this encounter Mental Status * Because of a physical, mental, or emotional condition, do you have serious difficulty concentrating, remembering, or making decisions? (5 years old or older) Answer Entry Date Author No 03/03/2022 12:16 AM Zara Pineda RN documented in this encounter Miscellaneous Notes * Telephone Encounter - Rigo Holman MD - 04/09/2024 10:25 AM ESTSigned Prescriptions: Disp Refills HYDROmorphone HCl 4 MG Oral Tablet (Dilaud*30 Tab*0 Sig: Take 1 Tablet by mouth every 4 hours as needed for Pain, Severe or Pain, Breakthrough. Authorizing Provider: RIGO HOLMAN * Telephone Encounter - Bonita Lane [facility] - 04/08/2024 2:03 PM ESTPending Prescriptions: Disp Refills HYDROmorphone HCl 4 MG Oral Tablet (Dilaud*30 Tab*0 Sig: Take 1 Tablet by mouth every 4 hours as needed for Pain, Severe or Pain, Breakthrough. * Telephone Encounter - Bonita Lane RPh - 04/08/2024 2:03 PM EST I have reviewed the patients controlled substance dispensing history in the Prescription Drug Monitoring Program in compliance with the [facility] regulations before prescribing a controlled substance. PDMP checked on 04/08/2024. Pending Prescriptions: Disp Refills HYDROmorphone HCl 4 MG Oral Tablet (Dilau*30 Tab*0 Sig: Take 1 Tablet by mouth every 4 hours as needed for Pain, Severe or Pain, Breakthrough. Last Visit: 12/29/2023 (in office), 03/17/2021 (telemedicine) Next Visit: 08/23/2024 Date medication was last filled: 03/27/24 Date medication is due for refill: 03/31/24 Pharmacy: [id number] Is this request for a controlled substance? Yes and Urine Drug Screen Not completed Toxicology results: No results found. However, due to the size of the patient record, not all encounters were searched.Please check Results Review for a complete set of results. Please approve if appropriate. Thanks, Bonita Lane, PharmD Clinical Pharmacist [facility] [phone] 04/08/2024 2:03 PM documented in this encounter Plan of Treatment Upcoming Encounters Date Type Department Care Team (Latest Contact Info) Description 04/19/2024 9:30 AM EST Hospital Encounter [facility]O [facility], Endoscopy Room [facility] [address] [place] [phone] Callie Harvey, [address] [place] [address] 04/19/2024 9:30 AM EST - 04/19/2024 10:00 AM EST Surgery [facility], Endoscopy Room [facility] [address] [place] [phone] Callie Harvey DO [address] [place] [address] ESOPHAGOGASTRODUODENOSCOPY (EGD), FLEXIBLE, TRANSORAL, DIAGNOSTIC 05/11/2024 2:00 PM EST Home Visit Care at Home [address] [place] [address] Awa Hurd PA-C [address], [place] [id number] 05/22/2024 8:45 AM EST Imaging Radiology [facility] [place] [address] 05/23/2024 8:00 AM EST Office Visit Pharmacy, [facility] [address] [facility] [place] [address] [facility] [place] [address] 05/30/2024 3:30 PM EST Office Visit Hematology/Oncol brandon [facility] [address] [facility] [place] [phone] Marciano Pagan MD [address] [facility] [place] [address] 08/23/2024 4:00 PM EDT Office Visit Family Practice [facility] [address] [place] [address] Rigo Holman MD [address] [place] [address] 08/29/2024 8:30 AM EDT Office Visit Cardiology, [facility] [place] [address] Rosa Elena Ko PA-C [address] [place] [address] Scheduled Procedures Name Priority Associated Diagnoses Date/Ti me ESOPHAGOGASTRODUODENOSCOPY ( EGD), FLEXIBLE, TRANSORAL, DIAGNOSTIC Black stool Acute on chronic anemia 04/19/2024 9:30 AM EST COLONOSCOPY FLEXIBLE PROXIMA L DIAGNOSTIC Recall History of anal cancer Health Maintenance Due Date Last Done Comments DISCUSS TOBACCO CESSATION (REFER TO SMARTSET #5780) 1955 Alpha-1 Antitrypsin 11/29/1973 Cologuard 11/29/2000 Fecal Occult Blood Test 11/29/2000 Sigmoidoscopy 11/29/2000 Diabetic Eye Exam 01/21/2021 01/22/2020, , 01/10/2016, Additional history exists DTap/Tdap Vaccines (2 - Td or Tdap) 07/16/2021 07/17/2011, 05/11/2000 Pneumococcal Vaccine: 50+ Years (2 of 2 - PCV) 02/25/2022 02/25/2021, 03/04/1999 Diabetic Foot Exam 09/09/2022 09/09/2021, 0 05/28/2020, 03/21/2019, Additional history exists CKD PHOS USE SMARTSET 10433 03/14/20230 06/2021, 03/13/2022, 03/12/2022, Additional history exists DXA Scan 05/13/2023 05/13/2021, 0 04/2021, 06/14/2018, Additional history exists COVID-19 Vaccine (2023- season) 2023 01/28/2022, 09/12/2021, 04/09/2021, Additional history exists HbA1c 02/18/2024 08/18/2023, 050 06/2022, 03/25/2022, Additional history exists Adult Wellness Visit 05/10/2024 05/10/2023 Depression Screening 06/23/2024 06/24/2023 Mammogram 08/30/2024 08/31/2023, 05, 08/19/2022, Additional history exists GFR 08/31/2024 03/03/2024, 02/10, 12/29/2023, Additional history exists Albumin/Creatinine Ratio 12/28/2024 024, 04/02/2023, 09/09/2021, Additional history exists CKD HGB USE SMARTSET 48501 12/28/202412/28, 12/29/2023, 11/26/2022, Additional history exists O2 ASSESSMENT COMPLETED IN PAST YEAR FOR COPD 01/25/2025 01/26/2024 B-12 02/01/2025 02/02/2024, 12/11, 08/18/2023, Additional history exists Colonoscopy 08/23/2025 08/23/2020, 08/10, 06/24/2016, Additional history exists Colorectal Cancer Screening 08/23/2025 MENINGOCOCCAL (MENACTRA/MENVEO) Aged Out 11/14/2009, 11/14/2009 No longer eligibl e based on patient's age to complete this topic Hepatitis B Vaccine Completed 02/21/2013, 09/11/2011, 08/12/2011 VITAMIN D LEVEL ONCE IN A LIFETIME-USE SMARTSET# 96354 Completed 01/23/2019, 08/10/2017, 07/06/2016, Additional history exists Zoster Vaccines Completed 01/22/2020, 04/13, 10/10/2015 RETIRED - COLONOSCOPY-EVERY 5 YRS AGES 18-100 Discontinued 08/23/2020, 08/23/2020, 06/24/2016, Additional history exists Influenza Vaccine (FLU shot) Completed 12/29/2023, 01/08/2023, 12/29/2021, Additional history exists HPV (Gardasil) Vaccine Aged Out No lo nger eligible based on patient's age to complete this topic documented as of this encounter Medical Devices Implanted Type Area Ict Business Development Manager Device Identifier Shelf Expiration Date Model / Serial / Lot Headless Compression Screw Implanted:Qty: 1 on 07/26/2020 by South Mtz MD at OR [facility] Left: Finger AR-8725-24 H / / Description:left middle fing er Ascesion Silicone Pip Finger Implant Implanted:Qty: 1 on 07/26/2020 by South Mtz MD at [facility] Left: Finger 06/09/2022 [id number]-[id number] -[id number] / / [id number] Description:middle finger documented as of this encounter Visit Diagnoses Diagnosis Anal squamous cell carcinoma (HCC) Malignant neoplasm of anus, unspecified site Black stool Nonspecific abnormal finding in stool contents Acute on chronic anemia documented in this encounter Advance Directives * [...] and were consensually agreed upon. Care Teams Spray Cementer Relationship Specialty Start Date End Date Rigo Holman MD [address] [place] [address] PCP - General Family Medicine 07/26/20 documented as of this encounter
--- OUTSIDE RECORDS SUMMARY | 2024-04-09 15:59 | External Medical Summary | Summary of Care ---
Author Name Unknown Organization [facility] Address [address] [place] [address] Phone [phone] Care Team Providers Care Conference Specialist Name Role Phone Sukh Holman MD Primary Care Provider [phone] Reason for Visit * Reason Comments eRx-Medication Refill Encounter Details Date Type Department Care Team (Late st Contact Info) Description 03/20/2024 Refill Family Practice [facility] [address] [facility] [place] [phone] Sukh Holman MD [address] [facility] [place] [address] Malignant neoplasm of anus, unspecified (HCC) Allergies Active Allergy Reactions Criticality Noted Date Comments Adhesive Tape Itching,Rash 07/29/2016 Paper tape is fine documented as of this encounter (statuses as of 03/21/2024) Medications Blood Glucose Monitoring Suppl (ONE TOUCH [...] as needed for arthritis pain 4 Active tiZANidine HCl 2 MG Oral Tablet (Zanaflex) Take 1 Tablet by mouth every 6 hours as needed for Muscle spasms. 30 Tablet 4 Active HYDROmorphone HCl 4 MG Oral Tablet (Dilaudid)Indica tions:Anal squamous cell carcinoma (HCC) Take 1 Tablet by mouth every 4 hours as needed for Pain, Severe or Pain, Breakthrough. 30 Tablet 4 Active Ondansetron HCl 8 MG Oral Tablet (Zofran) Take 1 Tablet by mouth every 8 hours as needed for Nausea. 30 Tablet 3 4 03/19/20 24 Discontin ued(Refil l) documented as of this encounter (statuses as of 03/21/2024) Active Problems Problem Noted Date Diagnosed Date [...] as of this encounter (statuses as of 03/21/2024) Resolved Problems Problem Noted Date Diagnosed Date [...] as of this encounter (statuses as of 03/21/2024) Immunizations Name Administration Dates Next Due COVID-19 mRNA, LNP-s, No Pre serve, 2-Dose Series ([employer]) 10/03/2020,09/12/2020 H1N1 2009 Influenza, IM 05/03/2009 Hepatitis [...] No 08/16/2023 Does the household have a [facility] source of income? (Household - for ages [...] 03/03/2022 12:16 AM Zara Pineda RN * Are you blind or do [...] of Assessment Author No 03/03/2022 12:16 AM EST Zara Garcia RN * Because of a physical, mental, [...] Zara Pineda RN documented in this encounter Plan of Treatment Upcoming Encounters Date Type Department Care Team (Latest Contact Info) Description 04/19/2024 8:00 AM EST Hospital Encounter ENDO [facility], Endoscopy Room [facility] [address] [place] [phone] Callie Harvey, DO [address] [place] [address] 04/19/2024 8:00 AM EST - 04/19/2024 8:30 AM EST Surgery [facility], Endoscopy Room [facility] [address] [place] [phone] Callie Harvey, DO [address] [place] [address] ESOPHAGOGASTRODUODENOSCOPY (EGD), FLEXIBLE, TRANSORAL, DIAGNOSTIC 05/11/2024 2:00 PM EST [facility] [address] [facility] [address] Awa [facility]urd [facility]C [address] [facility] [address] 05/22/2024 8:45 AM EST Imaging Radiology [address] [place] [address] 05/23/2024 8:00 AM EST Office Visit Pharmacy, [facility] [address] [facility] [place] [address] [facility] [address] [facility] [place] [address] 05/30/2024 3:30 PM EST Office Visit [facility] [address] [facility] [place] [phone] Marciano Pagan MD [address] [facility] [place] [address] 08/23/2024 4:00 PM EDT Office Visit Family Practice [facility] [place] [address] uSkh Holman MD 132 [facility] [place] [address] 08/29/2024 8:30 AM EDT Office Visit Cardiology, [facility] 132 [facility] [place] [address] Rosa Elena Ko PA-C [facility] [place] [address] Scheduled Procedures Name Priority Associated Diagnoses Date/Ti me ESOPHAGOGASTRODUODENOSCOPY ( EGD), FLEXIBLE, TRANSORAL, DIAGNOSTIC Black stool Acute on chronic anemia 04/19/2024 8:00 AM EST COLONOSCOPY FLEXIBLE PROXIMA L DIAGNOSTIC Recall History of anal cancer Health Maintenance Due Date Last Done Comments DISCUSS TOBACCO CESSATION (REFER TO SMARTSET #0917) 1955 Alpha-1 Antitrypsin 11/29/1973 Cologuard 11/29/2000 Fecal Occult Blood Test 11/29/2000 Sigmoidoscopy 11/29/2000 Diabetic Eye Exam 01/21/2021 01/22/2020, , 01/10/2016, Additional history exists DTap/Tdap Vaccines (2 - Td or Tdap) 07/16/2021 07/17/2011, 05/11/2000 Pneumococcal Vaccine: 65+ Years (2 of 2 - PCV) 02/25/2022 02/25/2021, 03/04/1999 Diabetic Foot Exam 09/09/2022 09/09/2021, 0 05/28/2020, 03/21/2019, Additional history exists CKD PHOS USE SMARTSET 11882 03/14/2023 12/0 06/2021, 03/13/2022, 03/12/2022, Additional history exists DXA Scan 05/13/2023 05/13/2021, 020 04/2021, 06/14/2018, Additional history exists COVID-19 Vaccine ( season) 2023 01/28/2022, 09/12/2021, 04/09/2021, Additional history exists HbA1c 02/18/2024 08/18/2023, 050 06/2022, 03/25/2022, Additional history exists Adult Wellness Visit 05/10/2024 05/10/2023 Depression Screening 06/23/2024 06/24/2023 Mammogram 08/30/2024 08/31/2023, 08/10, 08/19/2022, Additional history exists GFR 08/31/2024 03/03/2024, 02/10, 12/29/2023, Additional history exists Albumin/Creatinine Ratio 12/28/202412/28/2 024, 04/02/2023, 09/09/2021, Additional history exists CKD HGB USE SMARTSET 03600 12/28/202412/28, 12/29/2023, 11/26/2022, Additional history exists O2 [...] D LEVEL ONCE IN A LIFETIME-USE SMARTSET# 94860 Completed 01/23/2019, 08/10/2017, 07/06/2016, Additional history exists [...] this encounter Medical Devices Implanted Type Area Superintendent Sanitation Device Identifier Shelf Expiration Date Model / Serial / Lot Headless Compression Screw Implanted:Qty: 1 on 07/26/2020 by South Mtz MD at OR [facility] Left: Finger AR-[id number] H / / Description:left middle fing er Ascesion Silicone Pip Finger Implant Implanted:Qty: 1 on 07/26/2020 by South Mtz MD at OR [facility] Left: Finger 06/09/2022 [id number]-520-1 -[id number] / / [id number] Description:middle finger documented as of this encounter Visit Diagnoses Diagnosis Malignant neoplasm of anus, unspecified (HCC) Black stool Nonspecific abnormal finding in stool [...] and were consensually agreed upon. Care Teams Conference Specialist Relationship Specialty Start Date End Date Sukh Holman MD [address] [place] [address] PCP - General Family Medicine 07/26/20 documented as of this encounter
--- OUTSIDE RECORDS SUMMARY | 2024-04-09 15:59 | External Medical Summary | Summary of Care ---
Author Name Unknown Organization [facility] Address [address] [place] [address] Phone [phone] Care Team Providers Care Precision Grinder External Name Role Phone Rigo Holman MD Primary Care Provider [phone] [phone] Reason for Visit * Reason Onset Date Comments Medication Refill 04/06/2024 Encounter Details Date Type Department Care Team (Late st Contact Info) Description 04/06/2024 Refill Family Practice [facility] [address] [place] [address] Rigo Holman MD [address] [place] [address] Allergies Active Allergy Reactions Criticality Noted Date [...] for Nausea. 30 Tablet 3 4 Active tiZANidine HCl 2 MG Oral [...] mRNA, LNP-s, No Pre serve, 2-Dose Series ([employer]) 10/03/2020,09/12/2020 H1N1 2009 Influenza, IM 05/03/2009 Hepatitis [...] No 08/16/2023 Does the household have a [facility] source of income? (Household - for ages [...] Encounter - Rigo Holman MD - 04/09/2024 10:21 AM ESTSigned Prescriptions: Disp Refills tiZANidine HCl 2 MG Oral Tablet (Zanaflex) 30 Tab*0 Sig: Take 1 Tablet by mouth every 6 hours as needed for Muscle spasms. Authorizing Provider: RIGO HOLMAN * Telephone Encounter - Bonita Lane [facility] - 04/08/2024 2:04 PM ESTPending Prescriptions: Disp Refills tiZANidine HCl 2 MG Oral Tablet (Zanaflex) 30 Tab*0 Sig: Take 1 Tablet by mouth every 6 hours as needed for Muscle spasms. * Telephone Encounter - Bonita Lane RPh - 04/08/2024 2:04 PM EST Refill pharmacists currently not authorized to approve refills for this class of medication per refill protocol. Please approve if appropriate. Pending Prescriptions: Disp Refills tiZANidine HCl 2 MG Oral Tablet (Zanaflex) 30 Tab*0 Sig: Take 1 Tablet by mouth every 6 hours as needed for Muscle spasms. 12/29/2023 (in office), 03/17/2021 (telemedicine) 08/23/2024 If no future appointments scheduled, and last appointment is greater than a year ago, please schedule patient for a follow-up appointment Last date the medication was ordered: 03/27/24 Pharmacy: [id number] Is this request for a controlled substance? no Urine Drug Screen:No results found. However, due to the size of the patient record, not all encounters were searched. Please check Results Review for a complete set of results. Patient Phone Numbers Labs: Lab Results Component Value Date/Time CREAT 1.5 (H) 03/03/2024 08:44 AM CREAT 0.6 11/17/2019 11:47 AM POTASSIUM 4.1 03/03/2024 08:44 AM POTASSIUM <2.0 (LL) 03/04/2022 07:00 PM POTASSIUM 4.5 09/06/2019 03:40 PM TSH 3.54 03/12/2020 09:20 AM LDL 46 05/05/2023 01:01 PM LDL 40 06/30/2021 11:58 AM LDL UNINTERPRETABLE RESULT 07/01/2018 04:01 PM LDL 144 (H) 07/01/2018 04:01 PM ALT 11 02/28/2024 02:59 PM ALT 10 09/06/2019 03:40 PM HGBA1C 6.9 (H) 08/18/2023 01:09 PM HGBA1C 5.3 11/01/2019 09:36 AM documented in this encounter Plan of Treatment Upcoming Encounters Date Type Department Care Team (Latest Contact Info) Description 04/19/2024 9:30 AM EST Hospital Encounter ENDO OSS[facility], Endoscopy Room [facility] [address] [place] [phone] Callie Harvey, DO [address] [place] [address] 04/19/2024 9:30 AM EST - 04/19/2024 10:00 AM EST Surgery ENDO [facility], Endoscopy Room [facility] [address] [place] [phone] Callie Harvey, DO [address] [place] [address] ESOPHAGOGASTRODUODENOSCOPY (EGD), FLEXIBLE, TRANSORAL, DIAGNOSTIC 05/11/2024 2:00 PM EST Home Visit Care at Home [address] [place] [address] Awa Hurd PA-C [address] [place] [address] 05/22/2024 8:45 AM EST Imaging Radiology [facility] 132 [facility] [place] [address] 05/23/2024 8:00 AM EST Office Visit Pharmacy, [facility] [address] [facility] [place] [address] [facility] [address] [facility] [place] [address] 05/30/2024 3:30 PM EST Office Visit Hematology/Oncol [facility] [place] [address] [place] [phone] Marciano Pagan MD [address] [place] [address] 08/23/2024 4:00 PM EDT Office Visit Family Practice [facility] [address] [place] [address] Rigo Holman MD [address] [place] [address] 08/29/2024 8:30 AM EDT Office Visit Cardiology, [facility] [address] [place] [address] Rosa Elena Ko PA-C [address] [place] [address] Scheduled Procedures Name Priority Associated Diagnoses Date/Ti [...] Additional history exists CKD PHOS USE SMARTSET 20044 03/14/2023 120 06/2021, 03/13/2022, 03/12/2022, Additional history exists DXA Scan 05/13/2023 05/13/2021, 04/2021, 06/14/2018, Additional history exists COVID-19 Vaccine ( season) 2023 01/28/2022, 09/12/2021, 04/09/2021, Additional history exists HbA1c 02/18/2024 08/18/2023, 0506/2022, 03/25/2022, Additional history exists Adult Wellness Visit 05/10/2024 05/10/2023 Depression Screening 06/23/2024 06/24/2023 Mammogram 08/30/2024 08/31/2023, 08/10, 08/19/2022, Additional history exists GFR 08/31/2024 03/03/2024, 02/10, 12/29/2023, Additional history exists Albumin/Creatinine Ratio 12/28/2024 024, 04/02/2023, 09/09/2021, Additional history exists CKD HGB USE SMARTSET 96066 12/28/202412/28, 12/29/2023, 11/26/2022, Additional history exists O2 [...] D LEVEL ONCE IN A LIFETIME-USE SMARTSET# [id number] Completed 01/23/2019, 08/10/2017, 07/06/2016, Additional history exists [...] this encounter Medical Devices Implanted Type Area City Planner Device Identifier Shelf Expiration Date Model / Serial / Lot Headless Compression Screw Implanted:Qty: 1 on 07/26/2020 by South Mtz MD at OR [facility] Left: Finger AR-8725-24 H / / Description:left middle fing er Ascesion Silicone Pip Finger Implant Implanted:Qty: 1 on 07/26/2020 by South Mtz MD at OR [facility] Left: Finger 06/09/2022 [id number]-520-1 -[id number] / / [id number] Description:middle finger documented as of this encounter [...] and were consensually agreed upon. Care Teams Precision Grinder External Relationship Specialty Start Date End Date Rigo Holman MD 132 [facility] [place] [address] PCP - General Family Medicine 07/26/20 documented as of this encounter
--- OUTSIDE RECORDS SUMMARY | 2024-04-09 15:59 | External Medical Summary | Summary of Care ---
Author Name Unknown Organization [facility] Address [address] [place] [address] Phone [phone] Care Team Providers Care Infirmary Attendant Name Role Phone Sukh Holman MD Primary Care Provider [phone] Reason for Visit * Reason Onset Date Comments Medication Refill 03/27/2024 Encounter Details Date Type Department Care Team (Late st Contact Info) Description 03/27/2024 Refill Family Practice [facility] [address] [place] [address] Sukh Holman MD [address] [place] [address] Anal squamous cell carcinoma (HCC) Allergies Active Allergy Reactions Criticality Noted Date Comments Adhesive Tape Itching,Rash 07/29/2016 Paper tape is fine documented as of this encounter (statuses as of 03/28/2024) Medications Blood Glucose Monitoring Suppl (ONE TOUCH [...] Oral Tablet Delayed Release (Protonix)Indicat ions:Reflux esophagitis Take 1 Tablet by mouth in the morning and 1 Tablet in the evening. 4 Active Atorvastatin Calcium 20 MG Oral Tablet (Lipitor)Indicati ons:Dyslipidemia, goal LDL below 100 TAKE 1 TABLET BY MOUTH EVERY DAY 90 Tablet 3 4 Active Cyclobenzaprine HCl 10 MG Oral Tablet (Flexeril)Indicat ions:Spasm of muscle Take 1 Tablet by mouth in the morning and 1 Tablet at noon and 1 Tablet before bedtime. 270 Tablet 3 4 Active Alendronate Sodium 70 MG Oral Tablet (Fosamax)Indicati ons:weekly on sundays TAKE 1 TABLET (70 MG) BY MOUTH ONCE A WEEK 12 Tablet 3 4 Active Gabapentin 300 MG Oral Capsule (Neurontin)Indica tions:Fibromyalgi a Take 1 Capsule by mouth in the morning and 1 Capsule before bedtime. 180 Capsule 3 4 Active Diclofenac Sodium 1 % External Gel (Voltaren)Indicat ions:Fibromyalgia Apply topically to affected area 4 times [...] or Pain, Breakthrough. 30 Tablet 4 Active tiZANidine HCl 2 MG Oral Tablet (Zanaflex) Take 1 Tablet by mouth every 6 hours as needed for Muscle spasms. 30 Tablet 4 Active documented as of this encounter (statuses as of 03/28/2024) Active Problems Problem Noted Date Diagnosed Date [...] as of this encounter (statuses as of 03/28/2024) Resolved Problems Problem Noted Date Diagnosed Date [...] as of this encounter (statuses as of 03/28/2024) Immunizations Name Administration Dates Next Due COVID-19 mRNA, LNP-s, No Pre serve, 2-Dose Series ([employer]) 10/03/2020,09/12/2020 H1N1 2009 Influenza, IM 05/03/2009 Hepatitis [...] No 08/16/2023 Does the household have a [facility] source of income? (Household - for [...] encounter Miscellaneous Notes * Telephone Encounter - Daniel Cortes RPh - 03/28/2024 12:04 PM EST Refused Prescriptions: Disp Refills tiZANidine HCl 2 MG Oral Tablet (Zanaflex) 30 Tab*0 Sig: Take 1Tablet by mouth every 6 hours as needed for Muscle spasms.Refused By: DANIEL CORTES for Refusal: Duplicate Request HYDROmorphone HCl 4 MG Oral Tablet (Dilaud*30 Tab*0 Sig: Take 1 Tablet by mouth every 4 hours as needed for Pain, Severe or Pain, Breakthrough.Refused By: DANIEL CORTES for Refusal: Duplicate Request documented in this encounter Plan of Treatment Upcoming Encounters Date Type Department Care Team (Latest Contact Info) Description 04/19/2024 8:00 AM EST Hospital Encounter ENDO [facility], Endoscopy Room [facility] [address] [place] [phone] Callie Harvey DO [address] [place] [address] 04/19/2024 8:00 AM EST - 04/19/2024 8:30 AM EST Surgery ENDO [facility], Endoscopy Room [facility] [address] [place] [phone] Callie Harvey DO [address] [place] [address] ESOPHAGOGASTRODUODENOSCOPY (EGD), FLEXIBLE, TRANSORAL, DIAGNOSTIC 05/11/2024 2:00 PM EST Home Visit Care at Home [address] [place] [address] Awa Hurd PA-C [address] [place] [address] 05/22/2024 8:45 AM EST Imaging Radiology [facility] [place] [address] 05/23/2024 8:00 AM EST Office Visit Pharmacy, [facility] 132 [facility] [place] [address] [facility] 132 [facility] [place] [address] 05/30/2024 3:30 PM EST [facility] [place] [phone] Marciano Pagan MD 200 [facility] [place] [address] 08/23/2024 4:00 PM EDT Office Visit Family Practice [facility] 132 [facility] [place] [address] Sukh Holman MD 132 [facility] [place] [address] 08/29/2024 8:30 AM EDT Office Visit Cardiology, [facility] 132 [facility] [place] [address] Rosa Elena Ko PA-C [address] [place] [address] Scheduled Procedures Name Priority Associated Diagnoses Date/Ti [...] Additional history exists CKD PHOS USE SMARTSET 48726 03/14/20230 06/2021, 03/13/2022, 03/12/2022, Additional history exists DXA Scan 05/13/2023 05/13/2021, 02/0 04/2021, 06/14/2018, Additional history exists COVID-19 Vaccine ( season) 2023 01/28/2022, 09/12/2021, 04/09/2021, Additional history exists HbA1c 02/18/2024 08/18/2023, 050 06/2022, 03/25/2022, Additional history exists Adult Wellness Visit 05/10/2024 05/10/2023 Depression Screening 06/23/2024 06/24/2023 Mammogram 08/30/2024 08/31/2023, 05, 08/19/2022, Additional history exists GFR 08/31/2024 03/03/2024, 02/10, 12/29/2023, Additional history exists Albumin/Creatinine Ratio 12/28/2024 024, 04/02/2023, 09/09/2021, Additional history exists CKD HGB USE SMARTSET 29886 12/28/202412/28, 12/29/2023, 11/26/2022, Additional history exists O2 [...] D LEVEL ONCE IN A LIFETIME-USE SMARTSET# 24043 Completed 01/23/2019, 08/10/2017, 07/06/2016, Additional history exists [...] this encounter Medical Devices Implanted Type Area Weed Control Inspector Device Identifier Shelf Expiration Date Model / Serial / Lot Headless Compression Screw Implanted:Qty: 1 on 07/26/2020 by South Mtz MD at OR [facility] [address] Left: Finger AR-8725-24 H / / Description:left middle fing er Ascesion Silicone Pip Finger Implant Implanted:Qty: 1 on 07/26/2020 by South Mtz MD at [facility] Left: Finger 06/09/2022 SPIP-520-1 -[id number] / / [id number] Description:middle finger documented as of this encounter [...] and were consensually agreed upon. Care Teams Infirmary Attendant Relationship Specialty Start Date End Date Sukh Holman MD 132 [facility] [place] [address] PCP - General Family Medicine 07/26/20 documented as of this encounter
--- OUTSIDE RECORDS SUMMARY | 2024-04-09 15:59 | External Medical Summary | Summary of Care ---
Author Name Unknown Organization [facility] Address [address] [place] [address] Phone [phone] Care Team Providers Care Bass String Winder Name Role Phone Rigo Holman MD Primary Care Provider [phone] [phone] Reason for Visit * Reason Onset Date Comments Medication Refill 03/19/2024 Encounter Details Date Type Department Care Team (Late st Contact Info) Description 03/19/2024 Refill Family Practice [facility] [address] [place] [address] Rigo Holman MD [address] [place] [address] Allergies Active Allergy Reactions Criticality Noted Date [...] for Nausea. 30 Tablet 3 4 Active Ondansetron HCl 8 [...] mRNA, LNP-s, No Pre serve, 2-Dose Series ([employer]) 10/03/2020,09/12/2020 H1N1 2009 Influenza, IM 05/03/2009 Hepatitis [...] encounter Miscellaneous Notes * Telephone Encounter - Martina Solano [facility] - 03/21/2024 4:59 AM ESTSigned Prescriptions: Disp Refills Ondansetron HCl 8 MG Oral Tablet (Zofran) 30 Tab*3 Sig: Take 1 Tablet by mouth every 8 hours as needed for Nausea.Authorizing Provider: RIGO HOLMANOrderingUser: MARTINA SOLANO documented in this encounter Plan of Treatment Upcoming Encounters Date Type Department Care Team (Latest Contact Info) Description 04/19/2024 8:00 AM EST Hospital Encounter ENDO [facility], Endoscopy Room [facility] [address] [place] [phone] Callie Harvey, 132 [place] [address] 04/19/2024 8:00 AM EST - 04/19/2024 8:30 AM EST Surgery ENDO [facility], Endoscopy Room [facility] [address] [place] [phone] Callie Harvey DO [address] [place] [address] ESOPHAGOGASTRODUODENOSCOPY (EGD), FLEXIBLE, TRANSORAL, DIAGNOSTIC 05/11/2024 2:00 PM EST Home Visit Care at Home [address] [place] [address] Awa Hurd PA-C [address] [place] [address] 05/22/2024 8:45 AM EST Imaging Radiology [facility]st [facility] [place] [address] 05/23/2024 8:00 AM EST Office Visit Pharmacy, [facility] 132 [facility] [place] [address] [facility] [place] [address] 05/30/2024 3:30 PM EST Office Visit Hematology/Oncol brandon [facility] 200 [facility] [place] [phone] Marciano Pagan MD 200 [facility] [place], [place] [address] 08/23/2024 4:00 PM EDT Office Visit Family Practice [facility] [place] [address] Rigo Holman MD [address] [place] [address] 08/29/2024 8:30 AM EDT Office Visit [facility]iology, [facility] [place] [address] Rosa Elena Ko PA-C [address] [place] [address] Scheduled Procedures Name Priority Associated Diagnoses Date/Ti [...] Additional history exists CKD PHOS USE SMARTSET 83975 03/14/[address] 06/2021, 03/13/2022, 03/12/2022, Additional history exists [...] Additional history exists CKD HGB USE SMARTSET 92173 12/28/202412/28, 12/29/2023, 11/26/2022, Additional history exists O2 [...] D LEVEL ONCE IN A LIFETIME-USE SMARTSET# 58990 Completed 01/23/2019, 08/10/2017, 07/06/2016, Additional history exists [...] this encounter Medical Devices Implanted Type Area Sewer Repairer Device Identifier Shelf Expiration Date Model / Serial / Lot Headless Compression Screw Implanted:Qty: 1 on 07/26/2020 by South Mtz MD at OR [facility] Left: Finger AR-8725-24 H / / Description:left middle fing er Ascesion Silicone Pip Finger Implant Implanted:Qty: 1 on 07/26/2020 by South Mtz MD at OR [facility] Left: Finger 06/09/2022 SPIP-520-1 -[id number] / / [id number] Description:middle finger documented as of this encounter [...] and were consensually agreed upon. Care Teams Bass String Winder Relationship Specialty Start Date End Date Rigo Holman MD [address] [place] [address] PCP - General Family Medicine 07/26/20 documented as of this encounter
--- OUTSIDE RECORDS SUMMARY | 2024-04-09 15:59 | External Medical Summary | Summary of Care ---
Author Name Unknown Organization [facility] Address [address] [place] [address] Phone [phone] Care Team Providers Care Family Medicine Chair Name Role Phone Sukh Holman MD Primary Care Provider [phone] Reason for Visit * Reason Onset Date Comments Medication Refill 04/06/2024 Encounter Details Date Type Department Care Team (Late st Contact Info) Description 04/06/2024 Refill Family Practice [facility] [address] [place] [address] Sukh Holman MD [address] [place] [address] Allergies Active Allergy Reactions Criticality Noted Date Comments Adhesive Tape Itching,Rash 07/29/2016 Paper tape is fine documented as of this encounter (statuses as of 04/08/2024) Medications Blood Glucose Monitoring Suppl (ONE TOUCH [...] as of this encounter (statuses as of 04/08/2024) Active Problems Problem Noted Date Diagnosed Date [...] as of this encounter (statuses as of 04/08/2024) Resolved Problems Problem Noted Date Diagnosed Date [...] as of this encounter (statuses as of 04/08/2024) Immunizations Name Administration Dates Next Due COVID-19 mRNA, LNP-s, No Pre serve, 2-Dose Series ([employer]) 10/03/2020,09/12/2020 H1N1 2009 Influenza, IM 05/03/2009 Hepatitis [...] Assessment Author No 03/03/2022 12:16 AM EST Jose, Zara R, RN * Because of a physical, mental, [...] encounter Miscellaneous Notes * Telephone Encounter - Janet Cheney [facility] - 04/08/2024 2:12 PM EST Refused Prescriptions: Disp Refills Ondansetron HCl 8 MG Oral Tablet (Zofran) 30 Tab*3 Sig: Take 1 Tablet by mouth every 8 hours as needed for Nausea.Refused By: JANET CHENEYresearch [facility] for Refusal: Too soon documented in this encounter Plan of Treatment Upcoming Encounters Date Type Department Care Team (Latest Contact Info) Description 04/19/2024 9:30 AM EST Hospital Encounter ENDO [facility], Endoscopy Room [facility] [address] [place] [phone] Callie Harvey, [address] [place] [address] 04/19/2024 9:30 AM EST - 04/19/2024 10:00 AM EST Surgery ENDO [facility], Endoscopy Room [facility] [address] [place] [phone] Callie Harvey, [address] [place] [address] ESOPHAGOGASTRODUODENOSCOPY (EGD), FLEXIBLE, TRANSORAL, DIAGNOSTIC 05/11/2024 2:00 PM EST Home Visit Care at Home [address] [place] [address] Awa Hurd PA-C [address] [place] [address] 05/22/2024 8:45 AM EST [facility] 132 [facility] [place] [address] 05/23/2024 8:00 AM EST Office Visit Pharmacy, [facility] [address] [facility] [place] [address] [facility] 132 [facility] [place] [address] 05/30/2024 3:30 PM EST [facility] 200 [place] [phone] Marciano Pagan MD 200 [facility] [place] [address] 08/23/2024 4:00 PM EDT Office Visit Family Practice [facility] 132 [facility] [place] [address] Sukh Holman MD 132 [facility] [place] [address] 08/29/2024 8:30 AM EDT Office Visit Cardiology, [facility] 132 [facility] [place] [address] Rosa Elena Ko PA-C [address] [place] [address] Scheduled Procedures Name Priority Associated Diagnoses Date/Ti me ESOPHAGOGASTRODUODENOSCOPY ( EGD), FLEXIBLE, TRANSORAL, DIAGNOSTIC Black stool Acute on chronic anemia 04/19/2024 9:30 AM EST COLONOSCOPY FLEXIBLE PROXIMA L DIAGNOSTIC Recall History of anal cancer Health Maintenance Due Date Last Done Comments DISCUSS TOBACCO CESSATION (REFER TO SMARTSET #9783) 1955 Alpha-1 Antitrypsin 11/29/1973 Cologuard 11/29/2000 Fecal Occult Blood Test 11/29/2000 Sigmoidoscopy 11/29/2000 Diabetic Eye Exam 01/21/2021 01/22/2020, , 01/10/2016, Additional history exists DTap/Tdap Vaccines (2 - Td or Tdap) 07/16/2021 07/17/2011, 05/11/2000 Pneumococcal Vaccine: 50+ Years (2 of 2 - PCV) 02/25/2022 02/25/2021, 03/04/1999 Diabetic Foot Exam 09/09/2022 09/09/2021, 0 05/28/2020, 03/21/2019, Additional history exists CKD PHOS USE SMARTSET 19488 03/14/2023 12/0 06/2021, 03/13/2022, 03/12/2022, Additional history [...] 02/10, 12/29/2023, Additional history exists Albumin/Creatinine Ratio 12/28/202412/28/ 024, 04/02/2023, 09/09/2021, Additional history exists CKD HGB USE SMARTSET 13758 12/28/202412/28, 12/29/2023, 11/26/2022, Additional history exists O2 [...] D LEVEL ONCE IN A LIFETIME-USE SMARTSET# 71431 Completed 01/23/2019, 08/10/2017, 07/06/2016, Additional history exists [...] this encounter Medical Devices Implanted Type Area Library Helper Device Identifier Shelf Expiration Date Model / Serial / Lot Headless Compression Screw Implanted:Qty: 1 on 07/26/2020 by South Mtz MD at OR [facility] Left: Finger AR-8725-24 H / / Description:left middle fing er Ascesion Silicone Pip Finger Implant Implanted:Qty: 1 on 07/26/2020 by South Mtz MD at OR [facility] Left: Finger 06/09/2022 SPIP-520-1 -[id number] / / [id number] Description:middle finger documented as of this encounter [...] and were consensually agreed upon. Care Teams Family Medicine Chair Relationship Specialty Start Date End Date Sukh Holman MD [address] [place] [address] PCP - General Family Medicine 07/26/20 documented as of this encounter
--- OUTSIDE RECORDS SUMMARY | 2024-04-09 16:00 | External Medical Summary | Summary of Care ---
Author Name Unknown Organization [facility] Address [address] [place] [address] Phone [phone] Care Team Providers Care Grinder [employer] Name Role Phone Rigo Holman MD Primary Care Provider [phone] Reason for Visit * Reason Onset Date Comments Medication Refill 03/17/2024 Encounter Details Date Type Department Care Team (Late st Contact Info) Description 03/17/2024 Refill Family Practice [facility] [address] [place] [address] Rigo Holman MD [address] [place] [address] Anal squamous cell carcinoma (HCC) Allergies Active Allergy Reactions Criticality Noted Date Comments Adhesive Tape Itching,Rash 07/29/2016 Paper tape is fine documented as of this encounter (statuses as of 03/19/2024) Medications Blood Glucose Monitoring Suppl (ONE TOUCH [...] 1 Tablet in the evening. 4 Active Ondansetron HCl 8 MG Oral Tablet (Zofran) Take 1 Tablet by mouth every 8 hours as needed for Nausea. 30 Tablet 3 4 Active Atorvastatin Calcium 20 [...] Severe or Pain, Breakthrough. 30 Tablet 4 03/17/20 24 Discontin ued(Refil l) documented as of this encounter (statuses as of 03/19/2024) Active Problems Problem Noted Date Diagnosed Date [...] as of this encounter (statuses as of 03/19/2024) Resolved Problems Problem Noted Date Diagnosed Date [...] as of this encounter (statuses as of 03/19/2024) Immunizations Name Administration Dates Next Due COVID-19 [...] Telephone Encounter - Rigo Holman MD - 03/19/2024 11:01 AM ESTSigned Prescriptions: Disp Refills HYDROmorphone HCl 4 MG Oral Tablet (Dilaud*30 Tab*0 Sig: Take 1 Tablet by mouth every 4 hours as needed for Pain, Severe or Pain, Breakthrough. Authorizing Provider: RIGO HOLMAN * Telephone Encounter - Robert Senior [facility] - 03/18/2024 2:10 PM ESTPending Prescriptions: Disp Refills HYDROmorphone HCl 4 MG Oral Tablet (Dilaud*30 Tab*0 Sig: Take 1 Tablet by mouth every 4 hours as needed for Pain, Severe or Pain, Breakthrough. * Telephone Encounter - Robert Senior RPh - 03/18/2024 2:09 PM EST I have reviewed the patients controlled substance dispensing history in the Prescription Drug Monitoring Program in compliance with the [facility] regulations before prescribing a controlled substance. PDMP checked on 03/18/2024. Pending Prescriptions: Disp Refills HYDROmorphone HCl 4 MG Oral Tablet (Dilau*30 Tab*0 Sig: Take 1 Tablet by mouth every 4 hours as needed for Pain, Severe or Pain, Breakthrough. Last Visit: 12/29/2023 (in office), 03/17/2021 (telemedicine) Next Visit: 08/23/2024 Date medication was last filled: 03-08-24 Date medication is due for refill: 03-13-24 Pharmacy: [facility] [address] [place] [address] Is this request for a controlled substance? Yes and Urine Drug Screen Not completed Toxicology results: No results found. However, due to the size of the patient record, not all encounters were searched.Please check Results Review for a complete set of results. Please approve if appropriate. Cindy HerronPh. Clinical Pharmacist [facility] [address] [place] [address], [address] [place] [address] : [phone] 03/18/2024,2:09 PM documented in this encounter Plan of Treatment Upcoming Encounters Date Type Department Care Team (Latest Contact Info) Description 04/19/2024 8:00 AM EST Hospital En[facility] [place] [phone] Callie Harvey, [address] [place] [address] 04/19/2024 8:00 AM EST - 04/19/2024 8:30 AM EST Surgery ENDO [facility], Endoscopy Room [facility] [address] [place] [phone] Callie Harvey DO [address] [place] [address] ESOPHAGOGASTRODUODENOSCOPY (EGD), FLEXIBLE, TRANSORAL, DIAGNOSTIC 05/11/2024 2:00 PM EST Home Visit Care at Home [address] [place] [address] Awa Hurd PA-C [address], [place] [id number] 05/22/2024 8:45 AM EST Imaging Radiology [facility]st [facility] [place] [facility] [place] [address] 05/23/2024 8:00 AM EST Office Visit Pharmacy, [facility] [address] [facility] [place] [address] [facility] 132 [facility] [place] [address] 05/30/2024 3:30 PM EST Office Visit Hematology/Oncol [facility]on [facility] [address] [facility] [place] [phone] Marciano Pagan MD 200 [facility] [place] [address] 08/23/2024 4:00 PM EDT Office Visit Family Practice [facility] [address] [facility] [place] [address] Rigo Holman MD 132 [facility] [place] [address] 08/29/2024 8:30 AM EDT Office Visit Cardiology, [facility] [address] [facility] [place] [address] Rosa Elena Ko PA-C [address] [place] [address] Scheduled Procedures Name Priority Associated Diagnoses Date/Ti me ESOPHAGOGASTRODUODENOSCOPY ( EGD), FLEXIBLE, TRANSORAL, DIAGNOSTIC Black stool Acute on chronic anemia 04/19/2024 8:00 AM EST COLONOSCOPY FLEXIBLE PROXIMA L DIAGNOSTIC Recall History of anal cancer Health Maintenance Due Date Last Done Comments DISCUSS TOBACCO CESSATION (REFER TO SMARTSET #5229) 1955 Alpha-1 Antitrypsin 11/29/1973 Cologuard 11/29/2000 Fecal Occult Blood Test 11/29/2000 Sigmoidoscopy 11/29/2000 Diabetic Eye Exam 01/21/2021 01/22/2020, , 01/10/2016, Additional history exists DTap/Tdap Vaccines (2 - Td or Tdap) 07/16/2021 07/17/2011, 05/11/2000 Pneumococcal Vaccine: 65+ Years (2 of 2 - PCV) 02/25/2022 02/25/2021, 03/04/1999 Diabetic Foot Exam 09/09/2022 09/09/2021, 0 05/28/2020, 03/21/2019, Additional history exists CKD PHOS USE SMARTSET 69016 03/14/2023 12/0 06/2021, 03/13/2022, 03/12/2022, Additional history [...] Additional history exists CKD HGB USE SMARTSET 49825 12/28/202412/28, 12/29/2023, 11/26/2022, Additional history exists O2 [...] D LEVEL ONCE IN A LIFETIME-USE SMARTSET# 02999 Completed 01/23/2019, 08/10/2017, 07/06/2016, Additional history exists [...] this encounter Medical Devices Implanted Type Area Salon Professional Device Identifier Shelf Expiration Date Model / Serial / Lot Headless Compression Screw Implanted:Qty: 1 on 07/26/2020 by South Mtz MD at OR [facility] Left: Finger [id number] H / / Description:left middle fing er Ascesion Silicone Pip Finger Implant Implanted:Qty: 1 on 07/26/2020 by South Mtz MD at [facility] Left: Finger 06/09/2022 [id number]-[id number] -[id number] / / [id number] Description:middle finger documented as of this encounter [...] and were consensually agreed upon. Care Teams [employer] Relationship Specialty Start Date End Date Rigo Holman MD [address] [facility] [place] [address] PCP - General Family Medicine 07/26/20 documented as of this encounter
--- OUTSIDE RECORDS SUMMARY | 2024-04-09 16:00 | External Medical Summary | Summary of Care ---
Author Name Unknown Organization [facility] Address [address] [place] [address] Phone [phone] Care Team Providers Care Chair Installer Name Role Phone Rigo Holman MD Primary Care Provider [phone] Reason for Visit * Reason Onset Date Comments Medication Refill 03/07/2024 Encounter Details Date Type Department Care Team (Late st Contact Info) Description 03/07/2024 Refill Family Practice [facility] [address] [place] [address] Rigo Holman MD [address] [place] [address] Anal squamous cell carcinoma (HCC) Allergies Active Allergy Reactions Criticality Noted Date Comments Adhesive Tape Itching,Rash 07/29/2016 Paper tape is fine documented as of this encounter (statuses as of 03/08/2024) Medications Blood Glucose Monitoring Suppl (ONE TOUCH [...] as needed for arthritis pain 4 Active HYDROmorphone HCl 4 MG Oral [...] Severe or Pain, Breakthrough. 30 Tablet 4 03/07/20 24 Discontin ued(Refil l) documented as of this encounter (statuses as of 03/08/2024) Active Problems Problem Noted Date Diagnosed Date [...] as of this encounter (statuses as of 03/08/2024) Resolved Problems Problem Noted Date Diagnosed Date [...] as of this encounter (statuses as of 03/08/2024) Immunizations Name Administration Dates Next Due COVID-19 mRNA, LNP-s, No Pre serve, 2-Dose Series (Singularu) 10/03/2020,09/12/2020 H1N1 2009 Influenza, IM 05/03/2009 Hepatitis [...] No 08/16/2023 Does the household have a [facility] source of income? (Household - for [...] Telephone Encounter - Rigo Holman MD - 03/08/2024 7:42 AM ESTSigned Prescriptions: Disp Refills HYDROmorphone HCl 4 MG Oral Tablet (Dilaud*30 Tab*0 Sig: Take 1 Tablet by mouth every 4 hours as needed for Pain, Severe or Pain, Breakthrough. Authorizing Provider: RIGO HOLMAN * Telephone Encounter - Ely Vick CMA - 03/07/2024 5:04 PM EST Pt requesting refill of Dilaudid. Refill pending if agreeable documented in this encounter Plan of Treatment Upcoming Encounters Date Type Department Care Team (Latest Contact Info) Description 04/19/2024 8:00 AM EST Hospital Encounter ENDO [facility], Endoscopy Room [facility] [place] [phone] Callie Harvey, DO [address] [place] [address] 04/19/2024 8:00 AM EST - 04/19/2024 8:30 AM EST Surgery ENDO [facility], Endoscopy Room [facility] [address] [place] [phone] Callie Harvey, DO [address] [place] [address] ESOPHAGOGASTRODUODENOSCOPY (EGD), FLEXIBLE, TRANSORAL, DIAGNOSTIC 05/11/2024 2:00 PM EST Home Visit Care at Home [address] [place] [address] Awa Hurd PA-C [address] [place] [address] 05/22/2024 8:45 AM EST Imaging Radiology [facility] 1st [facility] [address] [facility] [place] [address] 05/23/2024 8:00 AM EST Office Visit Pharmacy, [facility] [address] [facility] [place] [address] [facility] [address] 05/30/2024 3:30 PM EST [facility] [address] [place] [phone] Marciano Pagan MD [address] [place] [address] 08/23/2024 4:00 PM EDT Office Visit Family Practice [facility] [address] [facility] [place] [address] Rgio Holman MD 132 [facility] [place] [address] 08/29/2024 8:30 AM EDT Office Visit Cardiology, [facility] [address] [place] [address] Rosa Elena Ko, MARLENE [address] [place] [address] Scheduled Procedures Name Priority Associated Diagnoses Date/Ti [...] Additional history exists CKD PHOS USE SMARTSET 66785 03/14/2023 12/0 06/2021, 03/13/2022, 03/12/2022, Additional history exists DXA Scan 05/13/2023 05/13/2021, 02/0 04/2021, 06/14/2018, Additional history exists COVID-19 Vaccine ( season) 2023 01/28/2022, 09/12/2021, 04/09/2021, Additional history exists HbA1c 02/18/2024 08/18/2023, 05/0 06/2022, 03/25/2022, Additional history exists Adult Wellness Visit 05/10/2024 05/10/2023 Depression Screening 06/23/2024 06/24/2023 Mammogram 08/30/2024 08/31/2023, 08/10, 08/19/2022, Additional history exists GFR 08/31/2024 03/03/2024, 02/10, 12/29/2023, Additional history exists Albumin/Creatinine Ratio 12/28/2024 024, 04/02/2023, 09/09/2021, Additional history exists CKD HGB USE SMARTSET 02074 12/28/202412/28, 12/29/2023, 11/26/2022, Additional history exists O2 [...] D LEVEL ONCE IN A LIFETIME-USE SMARTSET# 50137 Completed 01/23/2019, 08/10/2017, 07/06/2016, Additional history exists [...] this encounter Medical Devices Implanted Type Area Pediatric Clinical Dietician Device Identifier Shelf Expiration Date Model / Serial / Lot Headless Compression Screw Implanted:Qty: 1 on 07/26/2020 by South Mtz MD at OR [facility] Left: Finger [id number] H / / Description:left middle fing er Ascesion Silicone Pip Finger Implant Implanted:Qty: 1 on 07/26/2020 by South Mtz MD at [facility] Left: Finger 06/09/2022 [id number]-[id number] / / [id number] Description:middle finger documented as of this encounter [...] and were consensually agreed upon. Care Teams Chair Installer Relationship Specialty Start Date End Date Rigo Holman MD [address] [place] [address] PCP - General Family Medicine 07/26/20 documented as of this encounter
--- OUTSIDE RECORDS SUMMARY | 2024-04-09 16:00 | External Medical Summary | Summary of Care ---
Author Name Unknown Organization [facility] Address [address] [place] [address] Phone [phone] Care Team Providers Care Commuter Pilot Name Role Phone Sukh Holman MD Primary Care Provider [phone] Reason for Visit * Reason Onset Date Comments Advice 12/27/2023 Pain medications Encounter Details Date Type Department Care Team (Late st Contact Info) Description 12/27/[address] [facility] [place] [address] [place] [address] Sukh Holman MD [address] [place] [address] Advice (Pain medications) Allergies Active Allergy Reactions Criticality Noted Date Comments Adhesive Tape Itching,Rash 07/29/2016 Paper tape is fine documented as of this encounter (statuses as of 03/17/2024) Medications Blood Glucose Monitoring Suppl (ONE TOUCH ULTRA SYSTEM KIT) W/DEVICE KITIndications: DM type 2 goal A1C below 7.5 Use up to four times a day as directed. Dx: 250.00 1 Kit 0 01/03/20 15 Active aspirin 81 MG chewable tabletIndicatio ns:Type 2 diabetes mellitus with hemoglobin A1c goal of less than 7.5% ([facility]) Take 1 Tab by mouth daily. with food. 100 Tab 5 12/19/19 17 Active ONETOUCH DELICA LANCETS 33G MISC Tests up to four times a day. DX code: 250.00 100 Each 11 05/22/19 20 Active OneTouch Ultra In Vitro Strip (Glucose Blood) USE UP TO 4 TIMES DAILY DIRECTED 400 Strip 4 08/26/19 22 Active valACYclovir HCl 1 GM Oral Tablet (Valtrex) Take 2 Tablets by mouth in the morning and 2 Tablets before bedtime. for cold sores. 4 Tablet 11 06/30/19 23 Active Albuterol Sulfate HFA 108 (90 Base) MCG/ACT Inhalation Aerosol SolutionIndicat ions:Shortness of breath,Acute bronchospasm INHALE 2 PUFFS BY MOUTH EVERY 4 HOURS NEEDED FOR SORE THROAT OR WHEEZING. 18 g 5 04/15/19 24 Active Propranolol HCl 20 MG Oral Tablet (Inderal)Indica tions:Essential tremor TAKE 1 TABLET BY MOUTH IN THE MORNING AND BEFORE BEDTIME 180 Tablet 3 05/18/19 24 Active Fluticasone Propionate 50 MCG/ACT Nasal Suspension (Flonase)Indica tions:Postnasal drip USE 2 SPRAY(S) IN EACH NOSTRIL ONCE DAILY 48 g 1 06/15/19 24 Active DULoxetine HCl 30 MG Oral Capsule Delayed Release Particles (Cymbalta)Indic ations:Fibromya lgia TAKE 2 CAPSULES BY MOUTH IN THE MORNING 180 Capsule 3 07/06/19 24 Active Cyanocobalamin 1000 MCG Oral Tablet (Cyanocobalamin )Indications:Lo w serum vitamin B12 Take 1 Tablet by mouth in the morning. 90 Tablet 08/19/19 24 Active Prochlorperazin e Maleate 10 MG Oral Tablet (Compazine)Jahaira cations:Anal cancer (HCC) TAKE 1 TABLET BY MOUTH EVERY 6 HOURS NEEDED FOR NAUSEA 60 Tablet 2 08/19/19 24 Active Trelegy Ellipta 200-62.5-25 MCG/ACT Aerosol Powder Breath Activated (Fluticasone-Um eclidinium-Harley nterol) INHALE 1 PUFF BY MOUTH IN THE MORNING 180 Each 1 08/20/19 24 Active rOPINIRole HCl ER 6 MG Oral Tablet Extended Release 24 Hour Take 6 mg by mouth at bedtime. 90 Tablet 3 08/23/19 24 Active Lidocaine Viscous HCl 2 % Mouth/Throat Solution Swish and spit 15 mL 2 times a day as needed for Pain, Severe. 100 mL 08/23/19 24 Active Furosemide 40 MG Oral Tablet (Lasix) Take 1 Tablet by mouth as needed for Other (swelling, fluid retention). 90 Tablet 3 09/20/19 24 Active traZODone HCl 50 MG Oral Tablet (Desyrel)Indica tions:Persisten t insomnia TAKE 1 TABLET BY MOUTH EVERYDAY AT BEDTIME 90 Tablet 3 10/27/19 24 Active metFORMIN HCl 1000 MG Oral Tablet (Glucophage)Ind ications:DM type 2 causing renal disease (HCC) TAKE 1 TABLET BY MOUTH TWICE A DAY WITH MORNING MEAL AND EVENING MEAL 180 Tablet 2 11/06/19 24 Active Nystatin Powder Apply to affected area three times per day until healed. 1 Each 1 11/09/19 24 Active buPROPion HCl ER (XL) 300 MG Oral Tablet Extended Release 24 Hour (Wellbutrin XL)Indications: Fibromyalgia,De pression Take 1 Tablet by mouth in the morning. 90 Tablet 3 11/25/19 24 Active Lidocaine 4 % External Patch Place 1 Patch topically on the skin daily. Active Magnesium 200 MG Oral Tablet Take 1 Tablet by mouth in the morning. Active Pantoprazole Sodium 40 MG Oral Tablet Delayed Release (Protonix)Indic ations:Reflux esophagitis Take 1 Tablet by mouth in the morning and 1 Tablet in the evening. 12/27/19 24 Active Atorvastatin Calcium 20 MG Oral Tablet (Lipitor)Indica tions:Dyslipide daniel, goal LDL below 100 TAKE 1 TABLET BY MOUTH EVERY DAY 90 Tablet 3 06/06/19 24 024 Discontinued Cyclobenzaprine HCl 10 MG Oral Tablet (Flexeril)Indic ations:Spasm of muscle TAKE 1 TABLET BY MOUTH THREE TIMES A DAY 270 Tablet 3 06/15/19 24 024 Discontinued(Re fill) Fluticasone Propionate 50 MCG/ACT Nasal Suspension (Flonase)Indica tions:Postnasal drip SPRAY 2 SPRAYS INTO EACH NOSTRIL ONCE DAILY 48 mL 5 06/15/19 24 024 Discontinued Alendronate Sodium 70 MG Oral Tablet (Fosamax)Indica tions:weekly on sundays TAKE 1 TABLET (70 MG) BY MOUTH ONCE A WEEK 12 Tablet 1 09/14/19 24 024 Discontinued Meloxicam 15 MG Oral Tablet (Mobic)Indicati ons:Fibromyalgi a TAKE 1 TABLET BY MOUTH EVERY DAY FOR PAIN 90 Tablet 1 10/08/19 24 024 Discontinued(Ad verse reaction) Morphine Sulfate ER 15 MG Oral Tablet Extended Release (Ms Contin)Indicati ons:Anal cancer (HCC),Anal squamous cell carcinoma (HCC) Take 1 Tablet by mouth in the morning and 1 Tablet before bedtime. Max 45 tablets/arabella h.. 60 Tablet 10/21/19 24 024 Discontinued Ondansetron HCl 8 MG Oral Tablet (Zofran)Indicat ions:Anal cancer (HCC) Take 1 Tablet by mouth every 8 hours as needed for Nausea. 30 Tablet 3 10/27/19 24 024 Discontinued(Re fill) Gabapentin 300 MG Oral Capsule (Neurontin) Take 1 Capsule by mouth in the morning and 1 Capsule at noon and 1 Capsule before bedtime. 90 Capsule 3 11/08/19 24 024 Discontinued(Re fill) HYDROmorphone HCl 4 MG Oral Tablet (Dilaudid)Indic ations:Anal squamous cell carcinoma (HCC) Take 1 Tablet by mouth every 4 hours as needed for Pain, Severe or Pain, Breakthrough . 30 Tablet 12/15/19 24 024 Discontinued HYDROmorphone HCl 4 MG Oral Tablet (Dilaudid)Indic ations:Anal squamous cell carcinoma (HCC) Take 1 Tablet by mouth every 4 hours as needed for Pain, Severe or Pain, Breakthrough . 30 Tablet 12/30/19 24 024 Discontinued(Re fill) documented as of this encounter (statuses as of 03/17/2024) Active Problems Problem Noted Date Diagnosed Date Chronic heart failure with preserved ejection fr action 09/07/2023 Supplemental oxygen dependent 08/23/2023 History of lung cancer 08/23/2023 History of anal cancer 08/23/2023 Type 2 diabetes mellitus wit h other diabetic kidney complication 05/11/2023 Cerebral atrophy 05/11/2023 Atherosclerosis of both carotid arteries Overweight (BMI 25.0-29.9) 08/03/2022 Ileostomy present 03/06/2022 [...] as of this encounter (statuses as of 03/17/2024) Resolved Problems Problem Noted Date Diagnosed Date [...] as of this encounter (statuses as of 03/17/2024) Immunizations Name Administration Dates Next Due COVID-19 mRNA, LNP-s, No Pre serve, 2-Dose Series (Pfizer) 10/03/2020,09/12/2020 H1N1 2009 Influenza, IM 05/03/2009 Hepatitis B, 20+ yrs 02/21/2013,09/11/2011,08/11 MMR - Measles/Mumps/Rubella Vaccine 09/05/2011 Meningococcal Conjugate Vacc ine (Menactra/Menveo) 11/14/2009 Pneumococcal Polysaccharide PPV23 (Pneumovax) 02/25/2021,03/04/1999 Seasonal Influenza Vac., MDV , IM, 0.5 mL (Fluzone) 02/28/2014,02/04/2012,03/06/2011,02/20,01/14/2009 Seasonal Influenza, MDCK, Tr ivalent, PF, (Flucelvax) [...] encounter Miscellaneous Notes * Telephone Encounter - Mikaela Rodriguez LPN - 12/30/2023 4:35 PM EDT Pending Prescriptions: Disp Refills HYDROmorphone HCl 4 MG Oral Tablet (Dilau*30 Tab*0 Sig: Take 1 Tablet by mouth every 4 hours as needed for Pain, Severe or Pain, Breakthrough. Last Visit: 08/23/2023 (in office), 03/17/2021 (telemedicine) Next Visit: 08/23/2024 Last date the medication was ordered: 12/15/2023 Patient Active Problem List Diagnosis Tobacco use disorder Fibromyalgia Gastroesophageal reflux disease with esophagitis Dyslipidemia RLS (restless legs syndrome) HTN, goal below 130/80 Essential tremor Osteoporosis without current pathological fracture Type 2 diabetes mellitus with hemoglobin A1c goal of less than 8.0% ([facility]) Iron deficiency anemia due to chronic blood loss COPD, group B, by GOLD 2017 classification ([facility]) Aortic valve sclerosis Migraine with aura and without status migrainosus, not intractable Ileostomy present (HCC) Overweight (BMI 25.0-29.9) Type 2 diabetes mellitus with other diabetic kidney complication (HCC) Cerebral atrophy (HCC) Atherosclerosis of both carotid arteries Supplemental oxygen dependent History of lung cancer History of anal cancer Chronic heart failure with preserved ejection fraction (HCC) Labs: Lab Results Component Value Date/Time CREATININE - [facility] 1.3 (H) 12/29/2023 01:33 PM CREATININE - [facility] 0.6 11/17/2019 11:47 AM CREATININE POCT - [facility] 0.7 08/31/2013 12:36 PM CREATININE, RANDOM URINE - [facility] 30 12/29/2023 01:40 PM CREATININE, RANDOM URINE - [facility] 27 05/18/2017 04:20 PM Lab Results Component Value Date/Time POTASSIUM - [facility] 4.6 08/31/2023 03:49 PM POTASSIUM - [facility] 4.5 09/06/2019 03:40 PM POTASSIUM POCT - [facility] <2.0 (LL) 03/04/2022 07:00 PM POTASSIUM POCT - [facility] 4.2 08/31/2013 12:36 PM Lab Results Component Value Date/Time TSH - [...] Component Value Date/Time HEMOGLOBIN A1C - [facility] 6.9 (H) 08/18/2023 01:09 PM HEMOGLOBIN A1C - [facility] 6.4 (H) 08/12/2022 04:10 PM HEMOGLOBIN A1C - [facility] 6.0 (H) 03/25/2022 03:38 PM HEMOGLOBIN A1C - [facility] 5.3 11/01/2019 09:36 AM HEMOGLOBIN A1C - [facility] 5.9 (H) 05/03/2019 12:07 PM HEMOGLOBIN A1C - [facility] 6.1 (H) 01/17/2019 03:40 PM * Telephone Encounter - Kary Gibson CPhT - 12/30/2023 11:11 AM EDT Incoming call from patient requesting a new prescription for hydromorphone to be sent to [facility]. Caller states this was discussed at her office visit yesterday with her PCP who informed her that a new prescription would be sent. No active prescriptions on file for this medication. Please review and send a new prescription if appropriate. Thank you, Kary Gibson Special Agent I [facility] 12/30/2023,11:13 AM * Telephone Encounter - Deborah Serra PHARM Tech - 12/30/2023 11:02 AM EDT Transferred to [facility] line Thank you, Deborah Serra CPhT [employer]iconductor Equipment Technician II [facility] 12/30/2023,11:03 AM * Telephone Encounter - Carla Daigle RN - 12/28/2023 8:14 AM EDT Reviewed with Dr Pagan. Patient initially had been prescribed morphine and dilaudid for pain related to anal cancer diagnosis and has been slowly weaning off these medications over the past 2 years. Would recommend that patient follow up with Dr Holman regarding joint pain management/ hx fibromyalgia. Patient has scheduled appt with Dr Holman tomorrow 12/27/22. * Telephone Encounter - Guillermina Marquez [facility] - 12/28/2023 7:54 AM EDT Will defer to Dr. Pagan/Dr. Holman, patient was ultimately an opioid wean referral. Guillermina Marquez, Pharm D, [facility] Clinical Pharmacist 12/28/2023, 7:55 AM * Telephone Encounter - Etta Cervantes RN - 12/27/2023 4:[address] Holman and Dr Pagan, Emiliana was in the hospital recently with an upper GI bleed. When she arrived she was confused and hard to arouse. They gave her a dose of Narcan which reversed these symptoms. While in the hospital they used Tylenol and Lidocaine patches for the pain. They felt she had good pain relief while inpatient so told her to completely stop the Morphine and Dilauded at home and instead use the Tylenol and Lidocaine patches. She reports these are not really working. She rates her pain as an 8 today in all of her joints. She would like to know if there are any other options. Addended to add MTDM documented in this encounter Plan of Treatment Upcoming Encounters Date Type Department Care Team (Latest Contact Info) Description 04/19/2024 8:00 AM EST Hospital Encounter ENDO [facility], Endoscopy Room [facility] [address] [place] [phone] Callie Harvey DO [address] [place] [address] 04/19/2024 8:00 AM EST - 04/19/2024 8:30 AM EST Surgery ENDO [facility], Endoscopy Room [facility] [address] [place] [phone] Callie Harvey, DO [address] [place] [address] ESOPHAGOGASTRODUODENOSCOPY (EGD), FLEXIBLE, TRANSORAL, DIAGNOSTIC 05/11/2024 2:00 PM EST Home Visit Care at Home [address] [place] [address] Awa Hurd PA-C [address] [place] [address] 05/22/2024 8:45 AM EST Imaging Radiology [facility] [address] [facility] [place] [address] 05/23/2024 8:00 AM EST Office Visit Pharmacy, [facility] [place] [address] [facility] [place] [address] [facility] 132 [facility] [place] [address] 05/30/2024 3:30 PM EST Office Visit Hematology/Oncol ogy [facility] [address] [place], [place] [phone] Marciano Pagan MD [address] [place] [address] 08/23/2024 4:00 PM EDT Office Visit Family Practice [facility] [place] 132 [facility] [place] [address] Sukh Holman MD 132 [facility] [place] [address] 08/29/2024 8:30 AM EDT Office Visit Cardiology, [facility] [place] [address] [place] [address] Rosa Elena Ko, MARLENE [address] [place] [address] Scheduled Procedures Name Priority Associated Diagnoses Date/Ti [...] Additional history exists CKD PHOS USE SMARTSET 93413 03/14/2023 12/0 06/2021, 03/13/2022, 03/12/2022, Additional history [...] Additional history exists CKD HGB USE SMARTSET 58723 12/28/202412/28, 12/29/2023, 11/26/2022, Additional history exists O2 [...] D LEVEL ONCE IN A LIFETIME-USE SMARTSET# 10490 Completed 01/23/2019, 08/10/2017, 07/06/2016, Additional history exists [...] this encounter Medical Devices Implanted Type Area Hybrid Corn Breeder Device Identifier Shelf Expiration Date Model / Serial / Lot Headless Compression Screw Implanted:Qty: 1 on 07/26/2020 by South Mtz MD at OR [facility] Left: Maria R [id number]-8725-24 H / / Description:left middle fing er Ascesion Silicone Pip Finger Implant Implanted:Qty: 1 on 07/26/2020 by South Mtz MD at [facility] Left: Maria R 06/09/2022 [id number]-[id number] -[id number] / / [id number] Description:middle finger documented as of this encounter [...] and were consensually agreed upon. Care Teams Commuter Pilot Relationship Specialty Start Date End Date Sukh Holman MD [address] [place] [address] PCP - General Family Medicine 07/26/20 documented as of this encounter
--- OUTSIDE RECORDS SUMMARY | 2024-04-09 16:00 | External Medical Summary | Summary of Care ---
Author Name Unknown Organization [facility] Address [address] [place] [address] Phone [phone] Care Team Providers Care Computer Information Science Professor Name Role Phone Sukh Holman MD Primary Care Provider [phone] Reason for Visit * Reason Comments Outpatient Testing Encounter Details Date Type Department Care Team (Late st Contact Info) Description 03/03/2024 8:40 AM EST Laboratory Laboratory, [facility] [address] [place] [address] [facility] [address] [place] [address] Chronic heart failure with preserved ejection fraction (HCC); Localized edema; Hyponatremia Allergies Active Allergy Reactions Criticality Noted Date Comments Adhesive Tape Itching,Rash 07/29/2016 Paper tape is fine documented as of this encounter (statuses as of 03/03/2024) Medications Blood Glucose Monitoring Suppl (ONE TOUCH [...] before bedtime. 270 Tablet 3 4 Active HYDROmorphone HCl 4 MG Oral Tablet (Dilaudid)Indicat ions:Anal squamous cell carcinoma (HCC) Take 1 Tablet by mouth every 4 hours as needed for Pain, Severe or Pain, Breakthrough. 30 Tablet 4 Active Alendronate Sodium 70 MG [...] as needed for arthritis pain 4 Active documented as of this encounter (statuses as of 03/03/2024) Active Problems Problem Noted Date Diagnosed Date [...] as of this encounter (statuses as of 03/03/2024) Resolved Problems Problem Noted Date Diagnosed Date [...] as of this encounter (statuses as of 03/03/2024) Immunizations Name Administration Dates Next Due COVID-19 mRNA, LNP-s, No Pre serve, 2-Dose Series ([employer]) 10/03/2020,09/12/2020 H1N1 2009 Influenza, IM 05/03/2009 Hepatitis [...] 03/03/2022 12:16 AM EST Zara Garcia RN documented as of this encounter Mental Status * Because of a physical, mental, or emotional condition, do you have serious difficulty concentrating, remembering, or making decisions? (5 years old or older) Answer Entry Date Author No 03/03/2022 12:16 AM EST Zara Garcia RN documented in this encounter Plan of Treatment Upcoming Encounters Date Type Department Care Team (Latest Contact Info) Description 03/03/2024 9:15 AM EST Imaging Cardiac Studies, [facility] [address] [place] [address] HTN, goal below 130/80; Chronic heart failure with preserved ejection fraction (HCC); Aortic valve sclerosis; Dyslipidemia, goal LDL below 70; Dyspnea, unspecified type; Chest pain, unspecified type 04/19/2024 8:00 AM EST Hospital Encounter ENDO [facility], Endoscopy Room [facility] [address] [place] [phone] Callie Harvey, DO [address] [place] [address] 04/19/2024 8:00 AM EST - 04/19/2024 8:30 AM EST Surgery ENDO [facility], Endoscopy Room [facility] [address] [place] [phone] Callie Harvey, DO [address] [place] [id number] ESOPHAGOGASTRODUODENOSCOPY (EGD), FLEXIBLE, TRANSORAL, DIAGNOSTIC 05/11/2024 2:00 PM EST [facility] [phone] Awa Hurd [facility]-C [address] [facility] [phone] 05/22/2024 8:45 AM EST Imaging Radiology [address] [place] [address] 05/23/2024 8:00 AM EST Office Visit Pharmacy, [facility] 132 [facility] [place] [address] [facility] [place] [address] 05/30/2024 3:30 PM EST [facility] [address] [place] [phone] Marciano Pagan MD [address] [place] [address] 08/23/2024 4:00 PM EDT Office Visit Family Practice [facility] 132 [facility] [place] [address] Sukh Holman MD 132 [facility] [place] [address] 08/29/2024 8:30 AM EDT Office Visit Cardiology, [facility] 132 [facility] [place] [address] Rosa Elena Ko PA-C 132 [facility] [place] [address] Pending Results Name Type Priority Associated Diagnoses Date /Time BASIC METABOLIC PANEL Lab Routine Chronic heart failure with preserved ejection fraction (HCC) Localized edema Hyponatremia 03/03/2024 8:44 AM EST Scheduled Procedures Name Priority Associated Diagnoses Date/Ti me ESOPHAGOGASTRODUODENOSCOPY ( EGD), FLEXIBLE, TRANSORAL, DIAGNOSTIC Black stool Acute on chronic anemia 04/19/2024 8:00 AM EST COLONOSCOPY FLEXIBLE PROXIMA L DIAGNOSTIC Recall History of anal cancer Health Maintenance Due Date Last Done Comments DISCUSS TOBACCO CESSATION (REFER TO SMARTSET #1169) 1955 Alpha-1 Antitrypsin 11/29/1973 Cologuard 11/29/2000 Fecal Occult Blood Test 11/29/2000 Sigmoidoscopy 11/29/2000 Diabetic Eye Exam 01/21/2021 01/22/2020, , 01/10/2016, Additional history exists DTap/Tdap Vaccines (2 - Td or Tdap) 07/16/2021 07/17/2011, 05/11/2000 Pneumococcal Vaccine: 65+ Years (2 of 2 - PCV) 02/25/2022 02/25/2021, 03/04/1999 Diabetic Foot Exam 09/09/2022 09/09/2021, 0 05/28/2020, 03/21/2019, Additional history exists CKD PHOS USE SMARTSET 06572 03/14/2023 120 06/2021, 03/13/2022, 03/12/2022, Additional history exists DXA Scan 05/13/2023 05/13/2021, 04/2021, 06/14/2018, Additional history exists COVID-19 Vaccine ( season) 2023 01/28/2022, 09/12/2021, 04/09/2021, Additional history exists HbA1c 02/18/2024 08/18/2023, 05/0 06/2022, 03/25/2022, Additional history exists Adult Wellness Visit 05/10/2024 05/10/2023 Depression Screening 06/23/2024 06/24/2023 GFR 08/27/2024 02/28/2024, 12/11, 08/31/2023, Additional history exists Mammogram 08/30/2024 08/31/2023, 08/10, 08/19/2022, Additional history exists Albumin/Creatinine Ratio 12/28/20242 024, 04/02/2023, 09/09/2021, Additional history exists CKD HGB USE SMARTSET 05400 12/28/202412/28, 12/29/2023, 11/26/2022, Additional history exists O2 [...] D LEVEL ONCE IN A LIFETIME-USE SMARTSET# 13786 Completed 01/23/2019, 08/10/2017, 07/06/2016, Additional history exists [...] this encounter Medical Devices Implanted Type Area Auricular Detoxification Specialist Device Identifier Shelf Expiration Date Model / Serial / Lot Headless Compression Screw Implanted:Qty: 1 on 07/26/2020 by South Mtz MD at OR [facility] Left: Finger AR-[id number] H / / Description:left middle fing er Ascesion Silicone Pip Finger Implant Implanted:Qty: 1 on 07/26/2020 by South Mtz MD at OR [facility] Left: Finger 06/09/2022 [id number]-520-1 -[id number] / / [id number] Description:middle finger documented as of this encounter Visit Diagnoses Diagnosis HTN, goal below 130/80 Unspecified essential hypertension Chronic heart failure with preserved ejection fraction (HCC) Aortic valve sclerosis Aortic valve disorders Dyslipidemia, goal LDL below 70 Other and unspecified hyperlipidemia Dyspnea, unspecified type Chest pain, unspecified type Chronic heart failure with preserved ejection fraction (HCC) Localized edema Edema Hyponatremia Hyposmolality and/or hyponatremia Black stool Nonspecific abnormal finding in stool [...] and were consensually agreed upon. Care Teams Computer Information Science Professor Relationship Specialty Start Date End Date Sukh Holman MD [address] [place] [phone] PCP - General Family Medicine 07/26/20 documented as of this encounter
--- OUTSIDE RECORDS SUMMARY | 2024-04-09 16:00 | External Medical Summary ---
Author Name Unknown Address Unknown Organization K0[facility] [place] [address] [place] [address] Laboratory Report Ordering Provider Test Date Status JENNIFER SARAVIA 03/03/2024 08:44:03 Final Observation Date Value Abnormality Reference (Units ) Status BUN 03/03/2024 08:44:03 9 6-20 (mg/dL) Final Creatinine 03/03/2024 08:44:03 1.5 Above high normal 0.5-1.0 (mg/dL) Final Glomerular filtration rate/1.73 sq M.predicted [Volume Rate/Area] in Serum, Plasma or Blood by Creatinine-based formula (CKD-EPI) 03/03/2024 08:44:03 39 Below low normal >=60 (mL/min) Final eGFR is calculated based on the CKD-EPI 2020 equation. Sodium 03/03/2024 08:44:03 139 135-146 (m mol/L) Final Potassium 03/03/2024 08:44:03 4.1 3.5-5.1 (m mol/L) Final Cl 03/03/2024 08:44:03 96 Below low normal 98- 107 (mmol/L) Final CO2 03/03/2024 08:44:03 33 Above high normal 22 -32 (mmol/L) Final Anion gap 03/03/2024 08:44:03 10 7-15 (mmol /L) Final Glucose 03/03/2024 08:44:03 157 Above high normal 70 -120 (mg/dL) Final Calcium 03/03/2024 08:44:03 10.5 Above high normal 8. 4-10.2 (mg/dL) Final Performing Location [facility] [place] [address] [place] [address]
[2024-04-09 16:40] LABS: Basophils # (auto) 0.02 K/uL (0.00-0.20); Basophils % (auto) 0.1 %; Eosinophils # (auto) 0.01 K/uL (0.00-0.50); Eosinophils % (auto) 0.1 %; Hematocrit (blood only) 42.4 % (37.0-47.0); Hemoglobin 14.4 g/dl (12.0-16.0); Immature Granulocytes # (auto) 0.05 K/uL (0.01-0.20); Immature Granulocytes % (auto) 0.4 %; Lymphocytes # (auto) 0.86 K/uL (1.20-3.40); Lymphocytes % (auto) 6.3 %; Mean Corpuscular Hemoglobin 29.8 pg (25.0-34.0); Mean Corpuscular Volume 87.6 fL (80.0-100.0); Mean Platelet Volume 8.5 fL (9.4-12.4); Monocytes # (auto) 0.74 K/uL (0.11-0.59); Monocytes % (auto) 5.5 %; Neutrophils # (auto) 11.87 K/uL (1.40-6.50); Neutrophils % (auto) 87.6 %; Platelet Count 393 K/uL (130-400); RDW Coefficient of Variation 13.3 % (11.5-14.5); RDW Standard Deviation 42.8 fL (36.4-46.3); Red Blood Count 4.84 M/uL (4.20-5.40); White Blood Count 13.55 K/ul (4.8-10.8)
[2024-04-09 16:57] LABS: Alanine Aminotransferase 8 U/L (7-52); Albumin Globulin Ratio 1.3 (0.9-2); Albumin Level 4.4 gm/dl (3.4-5.0); Alkaline Phosphatase 71 U/L (34-104); Anion Gap 10 (3-11); Aspartate Aminotransferase 11 U/L (13-39); BUN Creatinine Ratio 13.8 (10-20); Bilirubin,Total 0.4 mg/dl (0.2-1.0); Blood Urea Nitrogen 19 mg/dl (6-23); Calcium 10.1 mg/dl (8.6-10.3); Carbon Dioxide 33 mmol/L (21-32); Chloride 90 mmol/L (98-107); Globulin 3.3 gm/dl (2.5-4.0); Glucose 195 mg/dl (70-99(Fasting)); Lipase 17 U/L (11-82); Potassium 4.1 mmol/L (3.5-5.1); Sodium 133 mmol/L (136-145); Total Protein 7.7 gm/dl (6.0-8.3)
[2024-04-09] MEDS: ONDANSETRON INJ 2 MG/ML 2 ML VIAL IV STA (17:20)
[2024-04-09] MEDS: fentaNYL citrate PF 100 MCG/2 ML VIAL IV STA (17:21)
--- NOTE | 2024-04-09 17:21 | Emergency Department Note ---
Impression & Plan SBO (small bowel obstruction), Right sided abdominal pain, Nausea & vomiting, JOSEPHINE (acute kidney injury) ED Provider Note HISTORY OF PRESENT ILLNESS: Patient is a 68-year-old female presenting with right sided abdominal pain, nausea and vomiting. Patient reports for the last week she has been having persistent nausea and multiple episodes of vomiting. Reports that in the last few days she has been unable to tolerate anything by mouth secondary to vomiting immediately after. She reports that she developed abdominal pain starting yesterday evening. She took a dose of her prescribed Dilaudid today at noon and the pain did not get any better, prompting her to present to the emergency department. She reports that her ileostomy has had decreased output throughout the day today. She has an abdominal surgical history significant for a bowel resection secondary to anal cancer, cholecystectomy and a hysterectomy. She denies any measured fevers at home, but reports subjective fevers and chills at home. Denies any recent sick contact exposures. Denies any dysuria or hematuria. She is currently complaining of 6 out of 10 pain in the right side of her abdomen and nausea. She describes the pain as a sharp and pressure-like sensation on the right side of her abdomen. ROS: as above PHYSICAL EXAM: Constitutional: Patient appears in no acute distress. HENT: Head: Normocephalic and atraumatic. Eyes: EOMI, PERRL Mouth/Throat: Mucous membranes moist. Neck: Trachea midline. Neck supple. Cardiovascular: Tachycardic with regular rhythm. No murmurs, rubs or gallops. Intact distal pulses. Pulmonary/Chest: No respiratory distress. Breath sounds clear and equal bilaterally. No wheezes or rales. Abdominal: Abdomen soft, no rebound or guarding. Ileostomy on right side of abdomen. Patient is diffusely tender to the right side of her abdomen. Musculoskeletal: No edema, tenderness or deformity noted. Skin: Warm and dry. No rash, erythema, pallor or cyanosis Psychiatric: Appropriate mood and affect for situation. Neurological: Alert and keenly responsive. CN II-XII grossly intact, moving all extremities equally and fully. MDM: - Vitals signs showed hypertension and tachycardia. - History obtained via patient. History as above. 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 At this time, monitor showed rate of 95 bpm with normal sinus rhythm, per my interpretation. - External medical records reviewed. Radiation oncology visit note dated 03/02/2024 was reviewed. Patient is scheduled to have a PET scan on 05/22/2024. She has a history of left upper lobe lung cancer. - Laboratory workup interpreted by myself showed slight leukocytosis (WBC 13.55); slight hyponatremia (Na 133); JOSEPHINE (Cr 1.38 - baseline around 1.0); normal lipase; normal lactate - Leukocytosis likely reactive secondary to patient's multiple episodes of nausea and vomiting. - CT abdomen/pelvis with IV contrast showed small bowel obstruction at the mid to distal small bowel with a transition point not clearly defined potentially in the left lower quadrant. - Patient initially given 50 mcg IV fentanyl, 1L NS and 4 mg IV zofran. On reassessment, patient still complaining of abdominal pain. Given 1 g IV Tylenol. - Discussed case with general surgeon on-call, Dr. Casper, at 19:17. Agreed with admission to medicine service and will see as a consult. - NG tube ordered for decompression. - Discussion was had with case finisher about patient's case and need for admission - Hospitalist, Dr. Chairez, consulted for admission - [facility] ASSESSMENT AND PLAN: Diagnosis: small bowel obstruction; right-sided abdominal pain; nausea and vomiting; JOSEPHINE Plan: Admit Past Med/Surg History Problem List (Updated 04/09/24 @ 20:06 by Unique Jones MD) JOSEPHINE (acute kidney injury) (Acute) Nausea & vomiting (Acute) Right sided abdominal pain (Acute) SBO (small bowel obstruction) (Acute) Elevated troponin I level GI bleed JOSEPHINE (acute kidney injury) (Acute) Hypokalemia (Acute) Hypomagnesemia (Acute) Acute hyponatremia (Acute) Acute GI bleeding (Acute) Acute exacerbation of chronic obstructive pulmonary disease (Acute) Acute respiratory failure with hypoxia and hypercarbia (Acute) Lactic acidosis Hypokalemia Hypotension Acute hypoxic respiratory failure Primary cancer of left upper lobe of lung (Chronic 11/26/22) Acute hyponatremia (Acute) Hypomagnesemia (Acute) Tachycardia JOSEPHINE (acute kidney injury) (Acute) Hyponatremia Hypomagnesemia Ileostomy present Hypoxia Essential tremor DVT prophylaxis Fibromyalgia Chronic back pain HLD (hyperlipidemia) COPD (chronic obstructive pulmonary disease) DM type 2 (diabetes mellitus, type 2) Parastomal hernia with obstruction and without gangrene (Acute) 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 Invasive, moderately differientiated, P-16 positive, Positive margin. s/p ileostomy, completed mitomycin x1 dose on 06/14/2019 and Xeloda along with radiation treatment between 06/09/2019-07/28/2019 Breast infection in female Hx of chronic left breast infections for 20 years Heart murmur Hyperlipemia Degenerative disc disease Constipation Bleeding hemorrhoids History of hemorrhoids Low back pain with right-sided sciatica multiple pain management injections with Dr. Archer Hip pain, chronic right Bursitis, scapulohumeral Surgical History S/P trigger finger release Status post trigger finger release History of shoulder surgery right 2009, ;left-2012. History of hernia repair History of breast surgery nipple areola reconstruction, s/p multiple infections History of neck surgery excision of lipoma-08/23/17 History of cholecystectomy 08/17/16 History of arthroscopy of right knee History of arthroplasty of left knee History of rectal abscess with I &D 05/05/19 History of colonoscopy 2010, 2016 History of breast biopsy 1994, 2001 History of hysterectomy age 37 History of hemorrhoidectomy 02/17/19 Family History Grandmother (Maternal) , in 60's Lung cancer Brother No problems noted. Sister No problems noted. Daughter No problems noted. Son No problems noted. Other No pertinent family history in first degree relatives Social History Smoking Status: Current every day smoker Tobacco Type: Cigarettes packs per day: 1; Cigarettes Per Day: 12; Second Hand Exposure: No; Do You Dip or Chew Tobacco: No; Hx Alcohol Use: No Hx Substance Use: No Preferred Language: Guamanian Communication Ability: Effective Visual Impairment: Limited Hearing Ability: Hard of Hearing Copier Technician Required: No Beliefs That Will Affect Care: None marital status: Current Living Situation: Spouse Current Living Situation Comment: boyfriend current occupational status: disabled 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 Feels Safe at Home: Yes Childhood Exposure to Second-Hand Smoke: Yes caffeine: Yes (mountain dew daily 2 liters a day) Dental Care, Regularly: No Assistive Devices: Cane and Glasses Allergies Allergies Allergy/AdvReac Type Severity Reaction Status Date / Time adhesive Allergy Intermediate SWELLING/RA Verified 12/24/23 01:19 Home Meds Home Medications Medication Instructions Recorded Confirmed aspirin 81 mg tablet,delayed 81 mg PO QAM 02/26/19 04/09/24 release atorvastatin 20 mg tablet 20 mg PO HS 02/26/19 04/09/24 fluticasone propionate 50 2 spray intranasal QAM PRN Allergy 02/26/19 04/09/24 mcg/actuation nasal Symptoms spray,suspension metformin 1,000 mg tablet 1,000 mg PO BIDM 02/26/19 04/09/24 trazodone 50 mg tablet 50 mg PO HS 02/26/19 04/09/24 albuterol sulfate 90 mcg/actuation 2 puff inhalation Q4H PRN 03/31/19 04/09/24 aerosol inhaler Shortness Of Breath Or Wheezing ondansetron HCl 8 mg tablet 8 mg PO Q8H PRN Nausea 05/29/20 04/09/24 prochlorperazine maleate 10 mg 10 mg PO Q6H PRN Constipation 05/29/20 04/09/24 tablet (Compazine) fluticasone fur. 200 mcg-umeclid 1 inh inhalation DAILY 03/02/22 04/09/24 62.5 mcg-vilant 25 mcg inhalat.powder (Trelegy Ellipta) propranolol 20 mg tablet 20 mg PO AMHS 03/02/22 04/09/24 furosemide 40 mg tablet 40 mg PO DAILY PRN Edema 03/26/22 04/09/24 alendronate 70 mg tablet 70 mg PO WK 12/24/23 04/09/24 bupropion HCl 300 mg 24 hr tablet, 300 mg PO QAM 12/24/23 04/09/24 extended release gabapentin 300 mg capsule 300 mg PO TID 12/24/23 04/09/24 nystatin 100,000 unit/gram topical 1 applic topical TID 12/24/23 04/09/24 powder (Klayesta) ropinirole 6 mg tablet,extended 6 mg PO HS 12/24/23 04/09/24 release 24 hr hydromorphone 4 mg tablet 4 mg PO Q4H PRN Pain 03/02/24 04/09/24 (Dilaudid) duloxetine 30 mg capsule,delayed 60 mg PO QAM 04/09/24 04/09/24 release tizanidine 2 mg tablet 2 mg PO QID PRN Pain 04/09/24 04/09/24 Previous Rx's Medication Instructions Recorded magnesium 200 mg tablet 200 mg PO DAILY #14 tabs 12/26/23 pantoprazole 40 mg tablet,delayed 40 mg PO BID #60 tabs 12/26/23 release (Protonix) Results & Data (ED) Vital Signs Vital Signs - 24 hr 04/09/24 16:00 04/09/24 16:53 04/09/24 17:06 Temperature 36.2 C L Temperature Source Temporal Artery Scan Pulse Rate 97 H 108 H Pulse Rate [Apical] 96 H Pulse Rhythm [Apical] Pulse Strength [Apical] Respiratory Rate 19 23 Respiratory Effort / Characteristics Non-Labored Spontaneous Respiratory Depth Normal Respiratory Pattern Regular Blood Pressure 138/74 Blood Pressure [Right Arm] 155/96 H Blood Pressure Mean 95 Blood Pressure Mean [Right Arm] 115 Blood Pressure Position [Right Arm] Pulse Oximetry 92 95 Oxygen Delivery Method Nasal Cannula Room Air Oxygen Flow Rate 2 Sepsis Recent Fever Within 48 Hours No Sepsis New/Unexplained Change in Mental Status N/A Sepsis Action Taken by Nursing No Action Required 04/09/24 19:34 Temperature Temperature Source Pulse Rate Pulse Rate [Apical] 90 Pulse Rhythm [Apical] Regular Pulse Strength [Apical] Normal Respiratory Rate 16 Respiratory Effort / Characteristics Non-Labored Respiratory Depth Normal Respiratory Pattern Regular Blood Pressure Blood Pressure [Right Arm] 139/81 Blood Pressure Mean Blood Pressure Mean [Right Arm] 100 Blood Pressure Position [Right Arm] Sitting Pulse Oximetry 98 Oxygen Delivery Method Room Air Oxygen Flow Rate Sepsis Recent Fever Within 48 Hours Sepsis New/Unexplained Change in Mental Status Sepsis Action Taken by Nursing Laboratory Data 04/09/24 16:08 04/09/24 16:08 Lab Results 04/09/24 04/09/24 Range/Units 16:08 19:27 WBC 13.55 H (4.8-10.8) K/ul RBC 4.84 (4.20-5.40) M/uL Hgb 14.4 (12.0-16.0) g/dl Hct 42.4 (37.0-47.0) % MCV 87.6 (80.0-100.0) fL MCH 29.8 (25.0-34.0) pg MCHC 34.0 (32.0-36.0) g/dL RDW Std Deviation 42.8 (36.4-46.3) fL RDW Coeff of Chelle 13.3 (11.5-14.5) % Plt Count 393 (130-400) K/uL MPV 8.5 L (9.4-12.4) fL Immature Gran % (Auto) 0.4 % Neut % (Auto) 87.6 % Lymph % (Auto) 6.3 % Mccracken % (Auto) 5.5 % Eos % (Auto) 0.1 % Baso % (Auto) 0.1 % Neut # (Auto) 11.87 H (1.40-6.50) K/uL Lymph # (Auto) 0.86 L (1.20-3.40) K/uL Mccracken # (Auto) 0.74 H (0.11-0.59) K/uL Eos # (Auto) 0.01 (0.00-0.50) K/uL Baso # (Auto) 0.02 (0.00-0.20) K/uL Immature Gran # (Auto) 0.05 (0.01-0.20) K/uL Sodium 133 L (136-145) mmol/L Potassium 4.1 (3.5-5.1) mmol/L Chloride 90 L (98-107) mmol/L Carbon Dioxide 33 H (21-32) mmol/L Anion Gap 10 (3-11) BUN 19 (6-23) mg/dl Creatinine 1.38 H (0.6-1.2) mg/dl Est Cr Clr Drug Dosing Not Reportable eGFR 41.69 BUN/Creatinine Ratio 13.8 (10-20) Glucose 195 H (70-99(Fasting)) mg/dl Lactate 1.1 (0.4-2.0) mmol/L Calcium 10.1 (8.6-10.3) mg/dl Total Bilirubin 0.4 (0.2-1.0) mg/dl AST 11 L (13-39) U/L ALT 8 (7-52) U/L Alkaline Phosphatase 71 (34-104) U/L Total Protein 7.7 (6.0-8.3) gm/dl Albumin 4.4 (3.4-5.0) gm/dl Globulin 3.3 (2.5-4.0) gm/dl Albumin/Globulin Ratio 1.3 (0.9-2) Lipase 17 (11-82) U/L Administered Medications Discontinued Medications Fentanyl Citrate (Fentanyl Citrate Pf 100 Mcg/2 Ml Vial) 50 mcg IV NOW STA Stop: 04/09/24 17:11 Last Admin: 04/09/24 17:21 Dose: 50 mcg Documented By: HANK Sodium Chloride (Nss) 1,000 mls @ 999 mls/hr IV .Q1H1M ONE Stop: 04/09/24 18:10 Last Infusion: 04/09/24 18:35 Dose: Infused Documented By: Admin: 04/09/24 17:23 Dose: 999 mls/hr Documented By: HANK Acetaminophen (Ofirmev) 1,000 mg in 100 mls @ 400 mls/hr IV NOW STA Stop: 04/09/24 19:22 Last Infusion: 04/09/24 20:03 Dose: Infused Documented By: Admin: 04/09/24 19:33 Dose: 400 mls/hr Documented By: BIB Ioversol (Optiray 320 100ml) 90 ml IV ONCE ONE Stop: 04/09/24 18:38 Last Admin: 04/09/24 18:37 Dose: 90 ml Documented By: MELANIE Ondansetron HCl (Ondansetron Inj 2 Mg/Ml 2 Ml Vial) 4 mg IV NOW STA Stop: 04/09/24 17:11 Last Admin: 04/09/24 17:20 Dose: 4 mg Documented By: HANK Imaging Data Radiologist's Impression: Abdomen/Pelvis CT 04/09/24 16:53 EXAM: CT Abdomen and Pelvis With Intravenous Contrast INDICATION: Right abdominal pain and vomiting. TECHNIQUE: Axial computed tomography images of the abdomen and pelvis with intravenous contrast. Sagittal and coronal reformatted images were created and reviewed. This CT exam was performed using one or more of the following dose reduction techniques: automated exposure control, adjustment of the mA and/or kV according to patient size, and/or use of iterative reconstruction technique. CONTRAST: 90ml of Optiray 320 was administered intravenously. COMPARISON: 12/23/2023 FINDINGS: Limitations: None. Lung bases: Slight increased chronic lower lobe airway thickening and new bilateral dependent atelectasis. Pleural space: No visualized pleural effusion or pneumothorax. Heart: No abnormality noted. Mediastinum: No abnormality noted. ABDOMEN: Liver: No abnormality noted. Gallbladder and bile ducts: Cholecystectomy. No ductal dilation or stone noted. Pancreas: Homogeneous enhancement. No mass, inflammation or ductal dilation. Spleen: No significant abnormality noted. Adrenals: Stable bilateral adrenal masses. Kidneys and ureters: Normal enhancement. No mass, hydronephrosis or visualized stone. Stomach and bowel: Dilated proximal and mid small bowel loops noted including dilated loops to an ileostomy in the right lower quadrant. Transition point not clearly defined possibly in the left lower quadrant. No pneumatosis. PELVIS: Appendix: The appendix is normal in size without inflammation. It contains a mid appendicoliths. Bladder: No filling defects to suggest mass or large stone. No inflammation. Reproductive: Hysterectomy. ABDOMEN and PELVIS: Intraperitoneal space: There is new scattered ascitic fluid throughout the abdomen and pelvis. No loculation. No free air. Bones/joints: Degenerative changes noted throughout the spine. No acute osseous abnormality seen. Degenerative changes noted in the scoliotic spine. No acute osseous abnormality noted. Soft tissues: No significant abnormality noted. Vasculature: Atherosclerotic calcification of the aorta and branches. No aneurysm. Lymph nodes: No pathologically enlarged lymph nodes. IMPRESSION: 1. Small bowel obstruction at the level of the mid to distal small bowel with transition point not clearly defined possibly in the left lower quadrant. Consider adhesions. Dilated loops involve the loop ileostomy which does not appear obstructing. 2. Nonspecific mild ascites. No free air or abscess. 3. Stable bilateral adrenal masses. 4. Increased lower lobe chronic bronchitis and atelectasis. ACT 112: Negative or not required by law. Electronically signed by Mavis Sotomayor 04-09-2024 7:04 PM Discharge Plan Visit Data Chief Complaint: Flank Pain Stated Complaint: RT FLANK PAIN, VOMIT ED Provider: Unique Jones Discharge Problem: SBO (small bowel obstruction), Right sided abdominal pain, Nausea & vomiting, JOSEPHINE (acute kidney injury) Forms Stand Alone Forms: [facility] Prescriptions Prescriptions: No Action hydromorphone [Dilaudid] 4 mg tablet 4 mg PO Q4H PRN (Reason: Pain) prochlorperazine maleate [Compazine] 10 mg tablet 10 mg PO Q6H PRN (Reason: Constipation) ondansetron HCl 8 mg tablet 8 mg PO Q8H PRN (Reason: Nausea) albuterol sulfate 90 mcg/actuation HFA aerosol inhaler 2 puff inhalation Q4H PRN (Reason: Shortness Of Breath Or Wheezing) trazodone 50 mg tablet 50 mg PO HS metformin 1,000 mg tablet 1,000 mg PO BIDM fluticasone propionate 50 mcg/actuation spray,suspension 2 spray INTRANASAL QAM PRN (Reason: Allergy Symptoms) atorvastatin 20 mg Tablet 20 mg PO HS aspirin 81 mg Tablet,Delayed Release (Dr/Ec) 81 mg PO QAM Trelegy Ellipta 200-62.5-25 mcg blister with device 1 inh INHALATION DAILY propranolol 20 mg tablet 20 mg PO AMHS furosemide 40 mg tablet 40 mg PO DAILY PRN (Reason: Edema) alendronate 70 mg tablet 70 mg PO WK Rx Instructions: sundays nystatin [Klayesta] 100,000 unit/gram powder 1 applic TOPICAL TID bupropion HCl 300 mg tablet extended release 24 hr 300 mg PO QAM ropinirole 6 mg tablet extended release 24 hr 6 mg PO HS gabapentin 300 mg capsule 300 mg PO TID magnesium 200 mg tablet 200 mg PO DAILY Qty: 14 0RF pantoprazole [Protonix] 40 mg tablet,delayed release (DR/EC) 40 mg PO BID Qty: 60 0RF tizanidine 2 mg tablet 2 mg PO QID PRN (Reason: Pain) duloxetine 30 mg capsule,delayed release(DR/EC) 60 mg PO QAM Referrals Referrals: Sukh Holman MD [Primary Care Provider] -
[2024-04-09] MEDS: SODIUM CHLORIDE 0.9% 1,000 ML IV ONE (17:23)
[2024-04-09] MEDS: OPTIRAY 320 100ml IV ONE (18:37)
--- NOTE | 2024-04-09 19:04 | CT Scan Report ---
EXAM: CT Abdomen and Pelvis With Intravenous Contrast INDICATION: Right abdominal pain and vomiting. TECHNIQUE: Axial computed tomography images of the abdomen and pelvis with intravenous contrast. Sagittal and coronal reformatted images were created and reviewed. This CT exam was performed using one or more of the following dose reduction techniques: automated exposure control, adjustment of the mA and/or kV according to patient size, and/or use of iterative reconstruction technique. CONTRAST: 90ml of Optiray 320 was administered intravenously. COMPARISON: 12/23/2023 FINDINGS: Limitations: None. Lung bases: Slight increased chronic lower lobe airway thickening and new bilateral dependent atelectasis. Pleural space: No visualized pleural effusion or pneumothorax. Heart: No abnormality noted. Mediastinum: No abnormality noted. ABDOMEN: Liver: No abnormality noted. Gallbladder and bile ducts: Cholecystectomy. No ductal dilation or stone noted. Pancreas: Homogeneous enhancement. No mass, inflammation or ductal dilation. Spleen: No significant abnormality noted. Adrenals: Stable bilateral adrenal masses. Kidneys and ureters: Normal enhancement. No mass, hydronephrosis or visualized stone. Stomach and bowel: Dilated proximal and mid small bowel loops noted including dilated loops to an ileostomy in the right lower quadrant. Transition point not clearly defined possibly in the left lower quadrant. No pneumatosis. PELVIS: Appendix: The appendix is normal in size without inflammation. It contains a mid appendicoliths. Bladder: No filling defects to suggest mass or large stone. No inflammation. Reproductive: Hysterectomy. ABDOMEN and PELVIS: Intraperitoneal space: There is new scattered ascitic fluid throughout the abdomen and pelvis. No loculation. No free air. Bones/joints: Degenerative changes noted throughout the spine. No acute osseous abnormality seen. Degenerative changes noted in the scoliotic spine. No acute osseous abnormality noted. Soft tissues: No significant abnormality noted. Vasculature: Atherosclerotic calcification of the aorta and branches. No aneurysm. Lymph nodes: No pathologically enlarged lymph nodes. IMPRESSION: 1. Small bowel obstruction at the level of the mid to distal small bowel with transition point not clearly defined possibly in the left lower quadrant. Consider adhesions. Dilated loops involve the loop ileostomy which does not appear obstructing. 2. Nonspecific mild ascites. No free air or abscess. 3. Stable bilateral adrenal masses. 4. Increased lower lobe chronic bronchitis and atelectasis. ACT 112: Negative or not required by law. Electronically signed by Mavis Sotomayor 04-09-2024 7:04 PM
[2024-04-09] MEDS: ACETAMINOPHEN 1,000 MG/100 ML VIAL IV STA (19:33)
[2024-04-09] MEDS ORDERED: LORazepam 2 MG/1 ML VIAL IV PRN (20:28)
--- NOTE | 2024-04-09 21:44 | History & Physical Report ---
Date of Service April 09, 2024 Assessment & Plan (1) SBO (small bowel obstruction): Plan: Recurrent SBO anal cancer status post surgery/chemoradiation Narcotic use for fibromyalgia/chronic pain contributory UGIB noted following NGT insertion History GERD on PPI Patient currently hemodynamically stable. ARF on CKD secondary to illness chronic diastolic heart failure (EF 60 to 65%, TTE 2023), equivocal volume status, ARF on CKD with mild ascites on CT valvular heart disease (trace AR/TR/MR) hypertension, elevated secondary to discomfort hyperlipidemia on statin Rx chronic respiratory failure secondary to COPD on home O2/pulmonary hypertension DM2 on oral medications, well-controlled as of recent hemoglobin A1c of 6.9 last December 2023 lung adenocarcinoma status post radiation essential tremors on propranolol ongoing tobacco abuse Medical telemetry Bowel rest Judicious narcotic use given bowel obstruction Surgery consult Re: Recurrent SBO (ED provider already in touch with Dr. Casper.) IV PPI for UGIB Appropriate to hold home aspirin for now Follow H&H, transfuse PRBC if hemoglobin less than 7 and or for symptomatic anemia GI consult if with progression of UGIB Baseline UA, monitor creatinine response to IV albumin given third spacing, hold home diuretic for now until creatinine back to baseline Basal bolus insulin adjusted for n.p.o. status, ISS BG goal 1 10-1 40 DVT prophylaxis. SCDs re: GI bleed Full code Text document was generated using [employer] voice recognition software. It may contain grammatical or spelling errors. Kindly contact undersigned for clarification of any documentation item in question. History of Present Illness Chief Complaint: Abdominal pain Primary Care Provider: Sukh Holman MD History obtained from patient and records. Medical history significant for chronic diastolic heart failure (EF 60 to 65%, TTE 2023), valvular heart disease (trace AR/TR/MR), hypertension, hyperlipidemia, chronic respiratory failure secondary to COPD on home O2, pulmonary hypertension, DM2 on oral medications, CRI (baseline creatinine 1.3), anal cancer status post surgery/chemoradiation, lung adenocarcinoma status post radiation, GERD, chronic pain/fibromyalgia, migraine, essential tremors, RLS, ongoing tobacco abuse. Last confinement December 2023 for UGIB presenting as melena from ileostomy. Patient discharged on oral PPI. Outpatient EGD January 2024 showed normal esophagus, normal stomach, nonbleeding duodenal ulcer with clean ulcer base. Twice daily PPI recommended for 2 months. Repeat upper endoscopy in 2 months for surveillance as per provider note. Few days history of achy lower abdominal pain associated with nausea, bilious emesis episodes. Decreased ostomy output. Denies unusual headache, chest pain, SOB. NGT inserted at the ER for bowel obstruction. Blood-tinged particles noted on NGT drainage. 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 Allergies Allergy/AdvReac Type Severity Reaction Status Date / Time adhesive Allergy Intermediate SWELLING/RA Verified 12/24/23 01:19 Home Medications Medication Instructions Recorded Confirmed Type aspirin 81 mg tablet,delayed 81 mg PO QAM 02/26/19 04/09/24 History release atorvastatin 20 mg tablet 20 mg PO HS 02/26/19 04/09/24 History fluticasone propionate 50 2 spray intranasal QAM PRN Allergy 02/26/19 04/09/24 History mcg/actuation nasal Symptoms spray,suspension metformin 1,000 mg tablet 1,000 mg PO BIDM 02/26/19 04/09/24 History trazodone 50 mg tablet 50 mg PO HS 02/26/19 04/09/24 History albuterol sulfate 90 mcg/actuation 2 puff inhalation Q4H PRN 03/31/19 04/09/24 History aerosol inhaler Shortness Of Breath Or Wheezing ondansetron HCl 8 mg tablet 8 mg PO Q8H PRN Nausea 05/29/20 04/09/24 History prochlorperazine maleate 10 mg 10 mg PO Q6H PRN Constipation 05/29/20 04/09/24 History tablet (Compazine) fluticasone fur. 200 mcg-umeclid 1 inh inhalation DAILY 03/02/22 04/09/24 History 62.5 mcg-vilant 25 mcg inhalat.powder (Trelegy Ellipta) propranolol 20 mg tablet 20 mg PO AMHS 03/02/22 04/09/24 History furosemide 40 mg tablet 40 mg PO DAILY PRN Edema 03/26/22 04/09/24 History alendronate 70 mg tablet 70 mg PO WK 12/24/23 04/09/24 History bupropion HCl 300 mg 24 hr tablet, 300 mg PO QAM 12/24/23 04/09/24 History extended release gabapentin 300 mg capsule 300 mg PO TID 12/24/23 04/09/24 History nystatin 100,000 unit/gram topical 1 applic topical TID 12/24/23 04/09/24 History powder (Klayesta) ropinirole 6 mg tablet,extended 6 mg PO HS 12/24/23 04/09/24 History release 24 hr magnesium 200 mg tablet 200 mg PO DAILY #14 tabs 12/26/23 04/09/24 Rx pantoprazole 40 mg tablet,delayed 40 mg PO BID #60 tabs 12/26/23 04/09/24 Rx release (Protonix) hydromorphone 4 mg tablet 4 mg PO Q4H PRN Pain 03/02/24 04/09/24 History (Dilaudid) duloxetine 30 mg capsule,delayed 60 mg PO QAM 04/09/24 04/09/24 History release tizanidine 2 mg tablet 2 mg PO QID PRN Pain 04/09/24 04/09/24 History Past Med/Surg History Problem List (Updated 04/09/24 @ 20:06 by Unique Jones MD) JOSEPHINE (acute kidney injury) (Acute) Nausea & vomiting (Acute) Right sided abdominal pain (Acute) SBO (small bowel obstruction) (Acute) Elevated troponin I level GI bleed JOSEPHINE (acute kidney injury) (Acute) Hypokalemia (Acute) Hypomagnesemia (Acute) Acute hyponatremia (Acute) Acute GI bleeding (Acute) Acute exacerbation of chronic obstructive pulmonary disease (Acute) Acute respiratory failure with hypoxia and hypercarbia (Acute) Lactic acidosis Hypokalemia Hypotension Acute hypoxic respiratory failure Primary cancer of left upper lobe of lung (Chronic 11/26/22) Acute hyponatremia (Acute) Hypomagnesemia (Acute) Tachycardia JOSEPHINE (acute kidney injury) (Acute) Hyponatremia Hypomagnesemia Ileostomy present Hypoxia Essential tremor DVT prophylaxis Fibromyalgia Chronic back pain HLD (hyperlipidemia) COPD (chronic obstructive pulmonary disease) DM type 2 (diabetes mellitus, type 2) Parastomal hernia with obstruction and without gangrene (Acute) 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 Invasive, moderately differientiated, P-16 positive, Positive margin. s/p ileostomy, completed mitomycin x1 dose on 06/14/2019 and Xeloda along with radiation treatment between 06/09/2019-07/28/2019 Breast infection in female Hx of chronic left breast infections for 20 years Heart murmur Hyperlipemia Degenerative disc disease Constipation Bleeding hemorrhoids History of hemorrhoids Low back pain with right-sided sciatica multiple pain management injections with Dr. Archer Hip pain, chronic right Bursitis, scapulohumeral Surgical History S/P trigger finger release Status post trigger finger release History of shoulder surgery right 2009, ;left-2012. History of hernia repair History of breast surgery nipple areola reconstruction, s/p multiple infections History of neck surgery excision of lipoma-08/23/17 History of cholecystectomy 08/17/16 History of arthroscopy of right knee History of arthroplasty of left knee History of rectal abscess with I &D 05/05/19 History of colonoscopy 2016 History of breast biopsy 2001 History of hysterectomy age 37 History of hemorrhoidectomy 02/17/19 Family History Grandmother (Maternal) , in 60's Lung cancer Brother No problems noted. Sister No problems noted. Daughter No problems noted. Son No problems noted. 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: No Beliefs That Will Affect Care: None marital status: Current Living Situation: Other Current Living Situation Comment: boyfriend current occupational status: disabled 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 Feels Safe at Home: Yes Safety Concerns: Feels Safe At This Time Childhood Exposure to Second-Hand Smoke: Yes caffeine: Yes (mountain dew daily 2 liters a day) Dental Care, Regularly: No Assistive Devices: Glasses Review of Systems Review of Systems: As per HPI, all other systems reviewed and negative Physical Exam Physical Exam: GENERAL: Comfortable, no respiratory distress SKIN: Normal color, warm HEENT: [place] palpebral conjunctivae, no ptosis, dry buccal mucosa, nasal cannula, NGT in place NECK : Supple, no tenderness CHEST : Decreased breath sounds, no tenderness HEART : Tachycardic, no obvious murmurs ABDOMEN: Some distention, ostomy bag in place, right-sided abdominal tenderness EXTREMITIES : No LE swelling/tenderness, no other conspicuous deformities noted NEUROLOGIC : Coherent, no facial asymmetry, no other gross focality Results & Data Results & Data Vital Signs (Past 12 Hours) Vital Signs Temp Pulse Pulse Resp BP BP Pulse Ox 04/09/24 21:01 87 04/09/24 19:34 90 16 139/81 98 04/09/24 17:06 96 H 23 155/96 H 95 04/09/24 16:53 108 H 04/09/24 16:00 36.2 C L 97 H 19 138/74 92 O2 Del Method O2 Flow Rate 04/09/24 21:01 04/09/24 19:34 Room Air 04/09/24 17:06 Room Air 04/09/24 16:53 04/09/24 16:00 Nasal Cannula 2 Laboratory Results Laboratory Results WBC 13.55 K/ul (4.8-10.8) H 04/09/24 16:08 RBC 4.84 M/uL (4.20-5.40) 04/09/24 16:08 Hgb 14.4 g/dl (12.0-16.0) 04/09/24 16:08 Hct 42.4 % (37.0-47.0) 04/09/24 16:08 MCV 87.6 fL (80.0-100.0) 04/09/24 16:08 MCH 29.8 pg (25.0-34.0) 04/09/24 16:08 MCHC 34.0 g/dL (32.0-36.0) 04/09/24 16:08 RDW Std Deviation 42.8 fL (36.4-46.3) 04/09/24 16:08 RDW Coeff of [place]le 13.3 % (11.5-14.5) 04/09/24 16:08 Plt Count 393 K/uL (130-400) 04/09/24 16:08 MPV 8.5 fL (9.4-12.4) L 04/09/24 16:08 Immature Gran % (Auto) 0.4 % 04/09/24 16:08 Neut % (Auto) 87.6 % 04/09/24 16:08 Lymph % (Auto) 6.3 % 04/09/24 16:08 [place] % (Auto) 5.5 % 04/09/24 16:08 Eos % (Auto) 0.1 % 04/09/24 16:08 Baso % (Auto) 0.1 % 04/09/24 16:08 Neut # (Auto) 11.87 K/uL (1.40-6.50) H 04/09/24 16:08 Lymph # (Auto) 0.86 K/uL (1.20-3.40) L 04/09/24 16:08 [place] # (Auto) 0.74 K/uL (0.11-0.59) H 04/09/24 16:08 Eos # (Auto) 0.01 K/uL (0.00-0.50) 04/09/24 16:08 Baso # (Auto) 0.02 K/uL (0.00-0.20) 04/09/24 16:08 Immature Gran # (Auto) 0.05 K/uL (0.01-0.20) 04/09/24 16:08 Sodium 133 mmol/L (136-145) L 04/09/24 16:08 Potassium 4.1 mmol/L (3.5-5.1) 04/09/24 16:08 Chloride 90 mmol/L (98-107) L 04/09/24 16:08 Carbon Dioxide 33 mmol/L (21-32) H 04/09/24 16:08 Anion Gap 10 (3-11) 04/09/24 16:08 BUN 19 mg/dl (6-23) 04/09/24 16:08 Creatinine 1.38 mg/dl (0.6-1.2) H 04/09/24 16:08 Est Cr Clr Drug Dosing Not Reportable 04/09/24 16:08 eGFR 41.69 04/09/24 16:08 BUN/Creatinine Ratio 13.8 (10-20) 04/09/24 16:08 Glucose 195 mg/dl (70-99(Fasting)) H 04/09/24 16:08 Lactate 1.1 mmol/L (0.4-2.0) 04/09/24 19:27 Calcium 10.1 mg/dl (8.6-10.3) 04/09/24 16:08 Magnesium 2.0 mg/dl (1.7-2.4) 04/09/24 16:08 Total Bilirubin 0.4 mg/dl (0.2-1.0) 04/09/24 16:08 AST 11 U/L (13-39) L 04/09/24 16:08 ALT 8 U/L (7-52) 04/09/24 16:08 Alkaline Phosphatase 71 U/L (34-104) 04/09/24 16:08 Total Protein 7.7 gm/dl (6.0-8.3) 04/09/24 16:08 Albumin 4.4 gm/dl (3.4-5.0) 04/09/24 16:08 Globulin 3.3 gm/dl (2.5-4.0) 04/09/24 16:08 Albumin/Globulin Ratio 1.3 (0.9-2) 04/09/24 16:08 Lipase 17 U/L (11-82) 04/09/24 16:08 Impressions Abdomen/Pelvis CT 04/09/24 16:53 EXAM: CT Abdomen and Pelvis With Intravenous Contrast INDICATION: Right abdominal pain and vomiting. TECHNIQUE: Axial computed tomography images of the abdomen and pelvis with intravenous contrast. Sagittal and coronal reformatted images were created and reviewed. This CT exam was performed using one or more of the following dose reduction techniques: automated exposure control, adjustment of the mA and/or kV according to patient size, and/or use of iterative reconstruction technique. CONTRAST: 90ml of Optiray 320 was administered intravenously. COMPARISON: 12/23/2023 FINDINGS: Limitations: None. Lung bases: Slight increased chronic lower lobe airway thickening and new bilateral dependent atelectasis. Pleural space: No visualized pleural effusion or pneumothorax. Heart: No abnormality noted. Mediastinum: No abnormality noted. ABDOMEN: Liver: No abnormality noted. Gallbladder and bile ducts: Cholecystectomy. No ductal dilation or stone noted. Pancreas: Homogeneous enhancement. No mass, inflammation or ductal dilation. Spleen: No significant abnormality noted. Adrenals: Stable bilateral adrenal masses. Kidneys and ureters: Normal enhancement. No mass, hydronephrosis or visualized stone. Stomach and bowel: Dilated proximal and mid small bowel loops noted including dilated loops to an ileostomy in the right lower quadrant. Transition point not clearly defined possibly in the left lower quadrant. No pneumatosis. PELVIS: Appendix: The appendix is normal in size without inflammation. It contains a mid appendicoliths. Bladder: No filling defects to suggest mass or large stone. No inflammation. Reproductive: Hysterectomy. ABDOMEN and PELVIS: Intraperitoneal space: There is new scattered ascitic fluid throughout the abdomen and pelvis. No loculation. No free air. Bones/joints: Degenerative changes noted throughout the spine. No acute osseous abnormality seen. Degenerative changes noted in the scoliotic spine. No acute osseous abnormality noted. Soft tissues: No significant abnormality noted. Vasculature: Atherosclerotic calcification of the aorta and branches. No aneurysm. Lymph nodes: No pathologically enlarged lymph nodes. IMPRESSION: 1. Small bowel obstruction at the level of the mid to distal small bowel with transition point not clearly defined possibly in the left lower quadrant. Consider adhesions. Dilated loops involve the loop ileostomy which does not appear obstructing. 2. Nonspecific mild ascites. No free air or abscess. 3. Stable bilateral adrenal masses. 4. Increased lower lobe chronic bronchitis and atelectasis. ACT 112: Negative or not required by law. Electronically signed by Mavis Sotomayor 04-09-2024 7:04 PM
[2024-04-09] MEDS ORDERED: FLUTICASONE PROPIONATE NA SPR 16 GM BTL PRN (22:30)
[2024-04-09] MEDS ORDERED: GLUCAGON FOR INJ 1 MG VIAL SQ PRN (22:31)
[2024-04-09] MEDS ORDERED: DEXTROSE 50% 50 ML SYRINGE IV PRN (22:31)
[2024-04-09] MEDS ORDERED: GLUCOSE 40% GEL 15 GM TUBE PO PRN (22:31)
[2024-04-09] MEDS ORDERED: CARBOHYDRATES FOR HYPOGLYCEMIA PO PRN (22:31)
[2024-04-09] MEDS ORDERED: GLUCOSE 10 TAB/TUBE PO PRN (22:31)
[2024-04-09] MEDS: PROMETHAZINE 6.25 MG/50.25 ML BAG IV PRN (22:32)
[2024-04-09] MEDS: HYDROmorphone INJ 0.5 MG/0.5 ML SYR IV STA (22:33)
[2024-04-09] MEDS: ALBUMIN 25% 25 GM/100 ML VIAL IV SCH (22:38)
[2024-04-09] MEDS: PANTOprazole 80 MG in DEXTROSE 5% 100 ML IV STA (22:39)
--- NOTE | 2024-04-09 22:59 | XRay Report ---
Exam(s): XR KUB EXAM: XR Abdomen, 1 View CLINICAL HISTORY: Reason for exam: NG Tube Placement. TECHNIQUE: Frontal supine view of the abdomen/pelvis. COMPARISON: CT 04/09/2024. IMPRESSION: Esophagogastric tube terminates within the gastric body. Electronically signed by: Samson Beauchamp MD 04/09/24 22:58 PM
[2024-04-09 23:07] LABS: Hematocrit (blood only) 40.2 % (37.0-47.0); Hemoglobin 13.5 g/dl (12.0-16.0)
[2024-04-10] MEDS: INSULIN ASPART PER UNIT CHARGE SC SCH (00:06)
[2024-04-10] MEDS: METOPROLOL TARTRATE 1 MG/ML VIAL IV SCH ×2 (00:07→12:36)
[2024-04-10] MEDS: HYDROmorphone INJ 0.5 MG/0.5 ML SYR IV PRN ×3 (02:37→14:46)
[2024-04-10] MEDS: ACETAMINOPHEN 1,000 MG/100 ML VIAL IV PRN (04:40)
[2024-04-10 05:34] LABS: Basophils # (auto) 0.04 K/uL (0.00-0.20); Basophils % (auto) 0.6 %; Eosinophils # (auto) 0.01 K/uL (0.00-0.50); Eosinophils % (auto) 0.2 %; Hematocrit (blood only) 38.5 % (37.0-47.0); Hemoglobin 12.8 g/dl (12.0-16.0); Immature Granulocytes # (auto) 0.01 K/uL (0.01-0.20); Immature Granulocytes % (auto) 0.2 %; Mean Corpuscular Hemoglobin 29.1 pg (25.0-34.0); Mean Corpuscular Hgb Conc 33.2 g/dL (32.0-36.0); Mean Corpuscular Volume 87.5 fL (80.0-100.0); Mean Platelet Volume 8.5 fL (9.4-12.4); Monocytes # (auto) 0.83 K/uL (0.11-0.59); Monocytes % (auto) 12.5 %; Neutrophils # (auto) 5.16 K/uL (1.40-6.50); Neutrophils % (auto) 77.5 %; Platelet Count 283 K/uL (130-400); RDW Coefficient of Variation 13.5 % (11.5-14.5); RDW Standard Deviation 43.6 fL (36.4-46.3); White Blood Count 6.65 K/ul (4.8-10.8)
[2024-04-10] MEDS: METOPROLOL TARTRATE 1 MG/ML VIAL IV STA (05:40)
[2024-04-10 05:43] LABS: BUN Creatinine Ratio 17.2 (10-20); Calcium 9.6 mg/dl (8.6-10.3); Creatinine Clr Calc Pharmacy 42.2 ml/min
[2024-04-10] MEDS: PANTOprazole 40 MG/10 ML SYR IV SCH (07:13)
[2024-04-10] MEDS: FLUTICASONE FUROATE 200MCG 14 PUFFS/INHALER INH SCH (07:17)
[2024-04-10] MEDS: GABAPENTIN 300 MG CAP PO SCH (07:20)
[2024-04-10] MEDS: buPROPion XL 300 MG TABCR PO SCH (07:20)
[2024-04-10] MEDS: DULoxetine HCL 60 MG CAP PO SCH (07:21)
[2024-04-10] MEDS ORDERED: NON-FORMULARY MEDICATION (Fluticasone-Umeclidin-Vilanter [Trelegy Ellipta] 200-62.5-25 mcg INH SCH (09:00)
[2024-04-10] MEDS: fentaNYL citrate PF 100 MCG/2 ML VIAL IV STA (09:34)
[2024-04-10] MEDS: UMECLIDINIUM/VILANTEROL 62.5/25MCG 7 PUFFS/INHALER INH SCH (09:34)
--- NOTE | 2024-04-10 10:22 | Surgery Consultation ---
Date of Consultation April 10, 2024 Assessment & Plan (1) SBO (small bowel obstruction): (2) Nausea & vomitin yo female with history of anal carcinoma s/p loop ileostomy and radiation therapy presented to ED with nausea, vomiting and increasing abdominal pain with decreased ostomy output. CT scan with dilated SB loops with unclear transition point in the lower left abdomen. Lactate normal, no leukocytosis. Ostomy is pink with no flatus or stool output. Abdomen mildly distended and tender. NGT with thick brownish output. Plan: Continue conservative management: NPO , NGT to LIS, pain management (will likely require higher doses as she take oral Dilaudid at baseline) IV fluids, antiemetics as needed encourage ambulation continue medical management will follow along Dr. Casper has seen and examined patient, see addendum for further recommendations/plan. 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 States her last bowel movement via ostomy was on Wednesday with some gas present. States pain continued to increase and she presented to ED. Takes Dilaudid oral at home chronically for pain management. Currently states she is having moderate to severe pain. NGT was placed last night and a cannister has been emptied already. Had Fentanyl for pain initially and that really helped. No nausea currently. No flatus in ostomy. Allergies Allergy/AdvReac Type Severity Reaction Status Date / Time adhesive Allergy Intermediate SWELLING/RA Verified 12/24/23 01:19 Home Medications Medication Instructions Recorded Confirmed Type aspirin 81 mg tablet,delayed 81 mg PO QAM 02/26/19 04/09/24 History release atorvastatin 20 mg tablet 20 mg PO HS 02/26/19 04/09/24 History fluticasone propionate 50 2 spray intranasal QAM PRN Allergy 02/26/19 04/09/24 History mcg/actuation nasal Symptoms spray,suspension metformin 1,000 mg tablet 1,000 mg PO BIDM 02/26/19 04/09/24 History trazodone 50 mg tablet 50 mg PO HS 02/26/19 04/09/24 History albuterol sulfate 90 mcg/actuation 2 puff inhalation Q4H PRN 03/31/19 04/09/24 History aerosol inhaler Shortness Of Breath Or Wheezing ondansetron HCl 8 mg tablet 8 mg PO Q8H PRN Nausea 05/29/20 04/09/24 History prochlorperazine maleate 10 mg 10 mg PO Q6H PRN Constipation 05/29/20 04/09/24 History tablet (Compazine) fluticasone fur. 200 mcg-umeclid 1 inh inhalation DAILY 03/02/22 04/09/24 History 62.5 mcg-vilant 25 mcg inhalat.powder (Trelegy Ellipta) propranolol 20 mg tablet 20 mg PO AMHS 03/02/22 04/09/24 History furosemide 40 mg tablet 40 mg PO DAILY PRN Edema 03/26/22 04/09/24 History alendronate 70 mg tablet 70 mg PO WK 12/24/23 04/09/24 History bupropion HCl 300 mg 24 hr tablet, 300 mg PO QAM 12/24/23 04/09/24 History extended release gabapentin 300 mg capsule 300 mg PO TID 12/24/23 04/09/24 History nystatin 100,000 unit/gram topical 1 applic topical TID 12/24/23 04/09/24 Hist ory powder (Klayesta) ropinirole 6 mg tablet,extended 6 mg PO HS 12/24/23 04/09/24 History release 24 hr magnesium 200 mg tablet 200 mg PO DAILY #14 tabs 12/26/23 04/09/24 Rx pantoprazole 40 mg tablet,delayed 40 mg PO BID #60 tabs 12/26/23 04/09/24 Rx release (Protonix) hydromorphone 4 mg tablet 4 mg PO Q4H PRN Pain 03/02/24 04/09/24 History (Dilaudid) duloxetine 30 mg capsule,delayed 60 mg PO QAM 04/09/24 04/09/24 History release tizanidine 2 mg tablet 2 mg PO QID PRN Pain 04/09/24 04/09/24 History Patient History Medical History Insomnia GERD (gastroesophageal reflux disease) DJD (degenerative joint disease) Diabetic neuropathy Bilateral hands and feet Squamous cell carcinoma of anal canal Diagnosed 05/05/2019. Invasive, moderately differientiated, P-16 positive, Positive margin. s/p ileostomy, completed mitomycin x1 dose on 06/14/2019 and Xeloda along with radiation treatment between 06/09/2019-07/28/2019 Breast infection in female Hx of chronic left breast infections for 20 years Heart murmur Hyperlipemia Degenerative disc disease Constipation Bleeding hemorrhoids History of hemorrhoids Low back pain with right-sided sciatica multiple pain management injections with Dr. Archer Hip pain, chronic right Bursitis, scapulohumeral Surgical History S/P trigger finger release Status post trigger finger release History of shoulder surgery right 2009, ;left-2012. History of hernia repair History of breast surgery nipple areola reconstruction, s/p multiple infections History of neck surgery excision of lipoma-08/23/17 History of cholecystectomy 08/17/16 History of arthroscopy of right knee History of arthroplasty of left knee History of rectal abscess with I &D 05/05/19 History of colonoscopy 2010, 2016 History of breast biopsy 2001 History of hysterectomy age 37 History of hemorrhoidectomy 02/17/19 Family History Grandmother (Maternal) , in 60's Lung cancer Brother No problems noted. Sister No problems noted. Daughter No problems noted. Son No problems noted. Other No pertinent family history in first degree relatives Social History Smoking Status: Current every day smoker Tobacco Type: Cigarettes packs per day: 1; Cigarettes Per Day: 12; Second Hand Exposure: No; Do You Dip or Chew Tobacco: No; Hx Alcohol Use: No Hx Substance Use: No Preferred Language: Pashto Communication Ability: Effective Visual Impairment: Limited Hearing Ability: Hard of Hearing Program Specialist Required: No Beliefs That Will Affect Care: None marital status: Current Living Situation: Other Current Living Situation Comment: boyfriend current occupational status: disabled 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 Feels Safe at Home: Yes Safety Concerns: Feels Safe At This Time Childhood Exposure to Second-Hand Smoke: Yes caffeine: Yes (mountain dew daily 2 liters a day) Dental Care, Regularly: No Assistive Devices: Glasses Review of Systems Review of Systems: All systems reviewed & are unremarkable except as noted in HPI & below Physical Exam Constitutional: WD/WN, vitals as above + obese and cooperative; no acute distress and not ill appearing Respiratory: normal respiratory effort, lungs clear to auscultation Cardiovascular: Rate/Rhythm: + tachycardic Heart Sounds: normal S1 and normal S2 Gastrointestinal (Abdomen): Inspection/Auscultation: + abdomen distended (mild) and + visible herniation (parastomal hernia) Percussion/Palpation: + abdomen tender (generalized) and abdomen soft; no guarding, abdomen not rigid and abdomen not firm Ileostomy with scant amount of brown fluid, no flatus stoma pink and healthy appearing Skin: no rashes, warm and dry Psychiatric: Orientation: alert and oriented x 3 Results & Data Vital Signs (Past 12 Hours) Vital Signs Pulse Pulse Resp BP BP Pulse Ox Pulse Ox 04/10/24 08:03 102 H 20 126/68 94 04/10/24 07:14 105 H 04/10/24 07:00 103 H 20 145/86 H 94 04/10/24 06:05 89 132/85 04/10/24 05:40 96 H 134/88 04/10/24 05:00 134/88 04/10/24 05:00 99 H 19 134/88 04/10/24 04:00 99 H 16 157/91 H 96 04/10/24 03:00 95 H 15 136/78 94 04/10/24 02:14 04/10/24 02:06 95 H 15 154/88 H 94 04/10/24 01:00 88 14 147/85 H 96 04/10/24 00:47 90 151/90 H 04/10/24 00:07 99 H 148/85 H 04/10/24 00:00 99 H 16 148/85 H 98 04/10/24 00:00 98 04/09/24 23:00 98 H 16 123/73 97 O2 Del Method O2 Del Method O2 Flow Rate O2 Flow Rate 04/10/24 08:03 Nasal Cannula 2 04/10/24 07:14 04/10/24 07:00 Nasal Cannula 2 04/10/24 06:05 04/10/24 05:40 04/10/24 05:00 04/10/24 05:00 04/10/24 04:00 Nasal Cannula 3 04/10/24 03:00 Nasal Cannula 3 04/10/24 02:14 Nasal Cannula 3 04/10/24 02:06 Nasal Cannula 3 04/10/24 01:00 Nasal Cannula 3 04/10/24 00:47 04/10/24 00:07 04/10/24 00:00 Nasal Cannula 3 04/10/24 00:00 Nasal Cannula 3 04/09/24 23:00 Nasal Cannula 3 Laboratory Results 04/10/24 04/10/24 04/10/24 Range/Units 10:07 05:36 05:17 WBC 6.65 (4.8-10.8) K/ul RBC 4.40 (4.20-5.40) M/uL Hgb 12.8 (12.0-16.0) g/dl Hct 38.5 (37.0-47.0) % MCV 87.5 (80.0-100.0) fL MCH 29.1 (25.0-34.0) pg MCHC 33.2 (32.0-36.0) g/dL RDW Std Deviation 43.6 (36.4-46.3) fL RDW Coeff of Chelle 13.5 (11.5-14.5) % Plt Count 283 (130-400) K/uL MPV 8.5 L (9.4-12.4) fL Immature Gran % (Auto) 0.2 % Neut % (Auto) 77.5 % Lymph % (Auto) 9.0 % Cedar % (Auto) 12.5 % Eos % (Auto) 0.2 % Baso % (Auto) 0.6 % Neut # (Auto) 5.16 (1.40-6.50) K/uL Lymph # (Auto) 0.60 L (1.20-3.40) K/uL [place] # (Auto) 0.83 H (0.11-0.59) K/uL Eos # (Auto) 0.01 (0.00-0.50) K/uL Baso # (Auto) 0.04 (0.00-0.20) K/uL Immature Gran # (Auto) 0.01 (0.01-0.20) K/uL Sodium 133 L (136-145) mmol/L Potassium 4.0 (3.5-5.1) mmol/L Chloride 94 L (98-107) mmol/L Carbon Dioxide 31 (21-32) mmol/L Anion Gap 8 (3-11) BUN 22 (6-23) mg/dl Creatinine 1.28 H (0.6-1.2) mg/dl Est Cr Clr Drug Dosing 42.2 eGFR 45.63 BUN/Creatinine Ratio 17.2 (10-20) Glucose 160 H (70-99(Fasting)) mg/dl POC Glucose 167 H (70-99) mg/dl Lactate (0.4-2.0) mmol/L Calcium 9.6 (8.6-10.3) mg/dl Magnesium (1.7-2.4) mg/dl Total Bilirubin (0.2-1.0) mg/dl AST (13-39) U/L ALT (7-52) U/L Alkaline Phosphatase (34-104) U/L Total Protein (6.0-8.3) gm/dl Albumin (3.4-5.0) gm/dl Globulin (2.5-4.0) gm/dl Albumin/Globulin Ratio (0.9-2) Lipase (11-82) U/L Procalcitonin 0.22 (0-0.5) ng/ml Urine Color Yellow Urine Appearance Clear (Clear) Urine pH 5.5 (4.5-7.5) Ur Specific [place] 1.042 H (1.000-1.030) Urine Protein 2+ H (Negative) Urine Glucose (UA) Negative (Negative) Urine Ketones Negative (Negative) Urine Blood Negative (Negative) Urine Nitrite Negative (Negative) Urine Bilirubin Negative (Negative) Urine Urobilinogen Negative (Negative) Ur Leukocyte Esterase Negative (Negative) Urine WBC (Auto) 0-5 (0-5) /hpf Urine RBC (Auto) 0-2 (0-2) /hpf U Hyaline Cast (Auto) 0-2 (0-2) /lpf U Epithel Cells (Auto) 3-5 H (0-2) /hpf Urine Bacteria (Auto) 1+ H (None Seen) Blood Type Antibody Screen 04/09/24 04/09/24 04/09/24 Range/Units 23:50 22:32 19:27 WBC (4.8-10.8) K/ul RBC (4.20-5.40) M/uL Hgb 13.5 (12.0-16.0) g/dl Hct 40.2 (37.0-47.0) % MCV (80.0-100.0) fL MCH (25.0-34.0) pg MCHC (32.0-36.0) g/dL RDW Std Deviation (36.4-46.3) fL RDW Coeff of Chelle (11.5-14.5) % Plt Count (130-400) K/uL MPV (9.4-12.4) fL Immature Gran % (Auto) % Neut % (Auto) % Lymph % (Auto) % [place] % (Auto) % Eos % (Auto) % Baso % (Auto) % Neut # (Auto) (1.40-6.50) K/uL Lymph # (Auto) (1.20-3.40) K/uL [place]edar # (Auto) (0.11-0.59) K/uL Eos # (Auto) (0.00-0.50) K/uL Baso # (Auto) (0.00-0.20) K/uL Immature Gran # (Auto) (0.01-0.20) K/uL Sodium (136-145) mmol/L Potassium (3.5-5.1) mmol/L Chloride (98-107) mmol/L Carbon Dioxide (21-32) mmol/L Anion Gap (3-11) BUN (6-23) mg/dl Creatinine (0.6-1.2) mg/dl Est Cr Clr Drug Dosing eGFR BUN/Creatinine Ratio (10-20) Glucose (70-99(Fasting)) mg/dl POC Glucose 199 H (70-99) mg/dl Lactate 1.1 (0.4-2.0) mmol/L Calcium (8.6-10.3) mg/dl Magnesium (1.7-2.4) mg/dl Total Bilirubin (0.2-1.0) mg/dl AST (13-39) U/L ALT (7-52) U/L Alkaline Phosphatase (34-104) U/L Total Protein (6.0-8.3) gm/dl Albumin (3.4-5.0) gm/dl Globulin (2.5-4.0) gm/dl Albumin/Globulin Ratio (0.9-2) Lipase (11-82) U/L Procalcitonin (0-0.5) ng/ml Urine Color Urine Appearance (Clear) Urine pH (4.5-7.5) Ur Specific [place] (1.000-1.030) Urine Protein (Negative) Urine Glucose (UA) (Negative) Urine Ketones (Negative) Urine Blood (Negative) Urine Nitrite (Negative) Urine Bilirubin (Negative) Urine Urobilinogen (Negative) Ur Leukocyte Esterase (Negative) Urine WBC (Auto) (0-5) /hpf Urine RBC (Auto) (0-2) /hpf U Hyaline Cast (Auto) (0-2) /lpf U Epithel Cells (Auto) (0-2) /hpf Urine Bacteria (Auto) (None Seen) Blood Type O Positive Antibody Screen NEGATIVE 04/09/24 Range/Units 16:08 WBC 13.55 H (4.8-10.8) K/ul RBC 4.84 (4.20-5.40) M/uL Hgb 14.4 (12.0-16.0) g/dl Hct 42.4 (37.0-47.0) % MCV 87.6 (80.0-100.0) fL MCH 29.8 (25.0-34.0) pg MCHC 34.0 (32.0-36.0) g/dL RDW Std Deviation 42.8 (36.4-46.3) fL RDW Coeff of Chelle 13.3 (11.5-14.5) % Plt Count 393 (130-400) K/uL MPV 8.5 L (9.4-12.4) fL Immature Gran % (Auto) 0.4 % Neut % (Auto) 87.6 % Lymph % (Auto) 6.3 % Cedar % (Auto) 5.5 % Eos % (Auto) 0.1 % Baso % (Auto) 0.1 % Neut # (Auto) 11.87 H (1.40-6.50) K/uL Lymph # (Auto) 0.86 L (1.20-3.40) K/uL [place] # (Auto) 0.74 H (0.11-0.59) K/uL Eos # (Auto) 0.01 (0.00-0.50) K/uL Baso # (Auto) 0.02 (0.00-0.20) K/uL Immature Gran # (Auto) 0.05 (0.01-0.20) K/uL Sodium 133 L (136-145) mmol/L Potassium 4.1 (3.5-5.1) mmol/L Chloride 90 L (98-107) mmol/L Carbon Dioxide 33 H (21-32) mmol/L Anion Gap 10 (3-11) BUN 19 (6-23) mg/dl Creatinine 1.38 H (0.6-1.2) mg/dl Est Cr Clr Drug Dosing Not Reportable eGFR 41.69 BUN/Creatinine Ratio 13.8 (10-20) Glucose 195 H (70-99(Fasting)) mg/dl POC Glucose (70-99) mg/dl Lactate (0.4-2.0) mmol/L Calcium 10.1 (8.6-10.3) mg/dl Magnesium 2.0 (1.7-2.4) mg/dl Total Bilirubin 0.4 (0.2-1.0) mg/dl AST 11 L (13-39) U/L ALT 8 (7-52) U/L Alkaline Phosphatase 71 (34-104) U/L Total Protein 7.7 (6.0-8.3) gm/dl Albumin 4.4 (3.4-5.0) gm/dl Globulin 3.3 (2.5-4.0) gm/dl Albumin/Globulin Ratio 1.3 (0.9-2) Lipase 17 (11-82) U/L Procalcitonin (0-0.5) ng/ml Urine Color Urine Appearance (Clear) Urine pH (4.5-7.5) Ur Specific [place] (1.000-1.030) Urine Protein (Negative) Urine Glucose (UA) (Negative) Urine Ketones (Negative) Urine Blood (Negative) Urine Nitrite (Negative) Urine Bilirubin (Negative) Urine Urobilinogen (Negative) Ur Leukocyte Esterase (Negative) Urine WBC (Auto) (0-5) /hpf Urine RBC (Auto) (0-2) /hpf U Hyaline Cast (Auto) (0-2) /lpf U Epithel Cells (Auto) (0-2) /hpf Urine Bacteria (Auto) (None Seen) Blood Type Antibody Screen Diagnostic Findings EXAM: CT Abdomen and Pelvis With Intravenous Contrast INDICATION: Right abdominal pain and vomiting. TECHNIQUE: Axial computed tomography images of the abdomen and pelvis with intravenous contrast. Sagittal and coronal reformatted images were created and reviewed. This CT exam was performed using one or more of the following dose reduction techniques: automated exposure control, adjustment of the mA and/or kV according to patient size, and/or use of iterative reconstruction technique. CONTRAST: 90ml of Optiray 320 was administered intravenously. COMPARISON: 12/23/2023 FINDINGS: Limitations: None. Lung bases: Slight increased chronic lower lobe airway thickening and new bilateral dependent atelectasis. Pleural space: No visualized pleural effusion or pneumothorax. Heart: No abnormality noted. Mediastinum: No abnormality noted. ABDOMEN: Liver: No abnormality noted. Gallbladder and bile ducts: Cholecystectomy. No ductal dilation or stone noted. Pancreas: Homogeneous enhancement. No mass, inflammation or ductal dilation. Spleen: No significant abnormality noted. Adrenals: Stable bilateral adrenal masses. Kidneys and ureters: Normal enhancement. No mass, hydronephrosis or visualized stone. Stomach and bowel: Dilated proximal and mid small bowel loops noted including dilated loops to an ileostomy in the right lower quadrant. Transition point not clearly defined possibly in the left lower quadrant. No pneumatosis. PELVIS: Appendix: The appendix is normal in size without inflammation. It contains a mid appendicoliths. Bladder: No filling defects to suggest mass or large stone. No inflammation. Reproductive: Hysterectomy. ABDOMEN and PELVIS: Intraperitoneal space: There is new scattered ascitic fluid throughout the abdomen and pelvis. No loculation. No free air. Bones/joints: Degenerative changes noted throughout the spine. No acute osseous abnormality seen. Degenerative changes noted in the scoliotic spine. No acute osseous abnormality noted. Soft tissues: No significant abnormality noted. Vasculature: Atherosclerotic calcification of the aorta and branches. No aneurysm. Lymph nodes: No pathologically enlarged lymph nodes. IMPRESSION: 1. Small bowel obstruction at the level of the mid to distal small bowel with transition point not clearly defined possibly in the left lower quadrant. Consider adhesions. Dilated loops involve the loop ileostomy which does not appear obstructing. 2. Nonspecific mild ascites. No free air or abscess. 3. Stable bilateral adrenal masses. 4. Increased lower lobe chronic bronchitis and atelectasis.
[2024-04-10 10:24] LABS: Appearance Urine Clear (Clear); Bacteria Urine Automated 1+ (None Seen); Bilirubin Urine Negative (Negative); Blood Urine Negative (Negative); Cast Urine Automated 0-2 /lpf (0-2); Color Urine Yellow; Glucose Urine UA Negative (Negative); Ketones Urine Negative (Negative); Leukocyte Esterase Urine Negative (Negative); Nitrite Urine Negative (Negative); Protein Urine 2+ (Negative); RBC Urine Automated 0-2 /hpf (0-2); Specific Gravity Urine 1.042 (1.000-1.030); Urobilinogen Urine Negative (Negative); WBC Urine Automated 0-5 /hpf (0-5); pH Urine 5.5 (4.5-7.5)
[2024-04-10] MEDS: ONDANSETRON INJ 2 MG/ML 2 ML VIAL IV PRN (11:22)
[2024-04-10] MEDS: tiZANidine HCL 4 MG TABLET PO PRN (12:37)
[2024-04-10] MEDS: cefTRIAXone SODIUM 1,000 MG/50 ML BAG IV SCH (14:47)
--- NOTE | 2024-04-10 15:25 | Hospitalist Progress Note ---
Date of Service April 10, 2024 Assessment & Plan (1) SBO (small bowel obstruction): Plan: Recurrent small bowel obstruction H/O anal squamous cell carcinoma S/P ileostomy H/O cholecystectomy, hysterectomy --CT ABD: Small bowel obstruction at the level of the mid to distal small bowel with transition point not clearly defined possibly in the left lower quadrant. Consider adhesions. Dilated loops involve the loop ileostomy which does not appear obstructing. Nonspecific mild ascites. No free air or abscess. Stable bilateral adrenal masses. -- Pain control, bowel rest, IV fluids Appreciate surgery input Continue NG tube for now Antiemetics as needed Encourage ambulation Abnormal urinalysis Urine culture pending Empirically on IV Rocephin Suspected upper GI bleed Likely due to traumatic NG tube placement H/O hemorrhoidectomy, anal cancer, GERD Melena last admission Continue IV Protonix Monitor H&H and transfuse as needed Hold aspirin for now Avoid anticoagulation for now JOSEPHINE on CKD II Monitor renal function Avoid nephrotoxic agents as able Continue IV fluids Narcotic use for fibromyalgia Chronic pain Chronic diastolic heart failure Valvular heart disease (trace AR/TR/MR) No overt signs of volume overload Hold home Lasix Monitor volume status DM II Last HbA1c 6.6 Monitor blood glucose levels Continue insulin while hospitalized Hypertension Resume home medications as able Hyperlipidemia on statin Chronic respiratory failure secondary to COPD on home O2 as needed Pulmonary hypertension Currently no signs of COPD exacerbation Lung adenocarcinoma S/P radiation Essential tremors on propranolol ongoing tobacco abuse--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 counselor 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 smoking DVT Px: SDCDs re: GI bleed CODE STATUS Full code Admission and Anticipated Discharge Date Admission Date: April 09, 2024 Subjective Patient is seen and examined at bedside Less nausea after NG tube placement States having right-sided abdominal pain + Gas in ileostomy tube noted by RN Denies any chest pain, dyspnea No other complaints Review of Systems Review of Systems: All systems reviewed & are unremarkable except as noted in Subjective Physical Exam Physical Exam: Physical Exam: Vitals signs as noted above General Appearance:Moderately built and nourished, no apparent distress,+NG tube Head: normocephalic, Atraumatic Eyes: normal inspection, EOMI Neck: supple, Trachea midline Respiratory/Chest: Normal breath sounds, CTA, No accessory muscle use Cardiovascular: S1, S2, + murmur,+ tachycardia Abdomen/GI:Soft,+ ileostomy, mildly distended, right-sided tenderness, + hernia, mild guarding, no rigidity Extremities/Musculoskeletal:normal inspection, no edema Neurologic/Psych:AAOX3, grossly no focal neurological deficits Skin: normal color, warm Results & Data Results & Data Vital Signs (Past 12 Hours) Vital Signs Pulse Pulse Resp BP BP Pulse Ox O2 Del Method 04/10/24 14:45 96 H 22 130/90 93 Nasal Cannula 04/10/24 13:17 90 99/64 L 04/10/24 08:03 102 H 20 126/68 94 Nasal Cannula 04/10/24 07:14 105 H 04/10/24 07:00 103 H 20 145/86 H 94 Nasal Cannula 04/10/24 06:05 89 132/85 04/10/24 05:40 96 H 134/88 04/10/24 05:00 134/88 04/10/24 05:00 99 H 19 134/88 04/10/24 04:00 99 H 16 157/91 H 96 Nasal Cannula O2 Flow Rate 04/10/24 14:45 3 04/10/24 13:17 04/10/24 08:03 2 04/10/24 07:14 04/10/24 07:00 2 04/10/24 06:05 04/10/24 05:40 04/10/24 05:00 04/10/24 05:00 04/10/24 04:00 3 Laboratory Results Short CBC 04/09/24 04/09/24 04/10/24 Range/Units 16:08 22:32 05:17 WBC 13.55 H 6.65 (4.8-10.8) K/ul Hgb 14.4 13.5 12.8 (12.0-16.0) g/dl Hct 42.4 40.2 38.5 (37.0-47.0) % Plt Count 393 283 (130-400) K/uL BMP 04/09/24 04/10/24 16:08 05:17 Sodium 133 L 133 L Potassium 4.1 4.0 Chloride 90 L 94 L Carbon Dioxide 33 H 31 BUN 19 22 Creatinine 1.38 H 1.28 H Glucose 195 H 160 H Calcium 10.1 9.6 Liver Function 04/09/24 Range/Units 16:08 Total Bilirubin 0.4 (0.2-1.0) mg/dl AST 11 L (13-39) U/L ALT 8 (7-52) U/L Alkaline Phosphatase 71 (34-104) U/L Albumin 4.4 (3.4-5.0) gm/dl Urine 04/10/ Range/Units 10:07 Urine Color Yellow Urine Appearance Clear (Clear) Urine pH 5.5 (4.5-7.5) Ur Specific [place] 1.042 H (1.000-1.030) Urine Protein 2+ H (Negative) Urine Glucose (UA) Negative (Negative)
[2024-04-10] MEDS: SODIUM CHLORIDE 0.9% 1,000 ML IV SCH (15:42)
[2024-04-10] MEDS: ATORVASTATIN 20 MG TAB PO SCH (22:37)
[2024-04-10] MEDS: traZODone HCL 50 MG TAB PO SCH (22:37)
[2024-04-10] MEDS: rOPINIRole HCL 2 MG TABLET PO STA (22:43)
[2024-04-11] MEDS: HYDROmorphone INJ 0.5 MG/0.5 ML SYR IV STA (02:53)
[2024-04-11] MEDS: METOPROLOL TARTRATE 1 MG/ML VIAL IV STA (02:54)
[2024-04-11 03:00] LABS: Magnesium 1.8 mg/dl (1.7-2.4)
[2024-04-11 07:15] LABS: Hematocrit (blood only) 40.5 % (37.0-47.0); Hemoglobin 13.1 g/dl (12.0-16.0); Mean Corpuscular Hemoglobin 28.9 pg (25.0-34.0); Mean Corpuscular Hgb Conc 32.3 g/dL (32.0-36.0); Mean Corpuscular Volume 89.4 fL (80.0-100.0); Mean Platelet Volume 8.8 fL (9.4-12.4); Platelet Count 271 K/uL (130-400); RDW Coefficient of Variation 13.7 % (11.5-14.5); RDW Standard Deviation 44.5 fL (36.4-46.3); Red Blood Count 4.53 M/uL (4.20-5.40); White Blood Count 4.31 K/ul (4.8-10.8)
[2024-04-11 07:31] LABS: BUN Creatinine Ratio 24.7 (10-20); Calcium 9.5 mg/dl (8.6-10.3); Creatinine Clr Calc Pharmacy 36.3 ml/min; Magnesium 1.6 mg/dl (1.7-2.4); Potassium 3.8 mmol/L (3.5-5.1)
[2024-04-11] MEDS: MAGNESIUM SULFATE / D5W 1 GM/100 ML BAG IV ONE (10:45)
--- NOTE | 2024-04-11 11:07 | Surgery Progress Note ---
Date of Service April 11, 2024 Assessment & Plan (1) SBO (small bowel obstruction): (2) Nausea & vomiting: Plan: 68 yo female with history of anal carcinoma s/p loop ileostomy and radiation therapy presented to ED with nausea, vomiting and increasing abdominal pain with decreased ostomy output. CT scan with dilated SB loops with unclear transition point in the lower left abdomen. Lactate normal, no leukocytosis. Ostomy is pink with no flatus or stool output. Abdomen mildly distended and tender. NGT with thick brownish output. 04/11/2024 afebrile, no leukocytosis tachycardic in 120's but not hypertensive pain 8/10 (chronic pain with oral dialudid 2-3x/day at home) abdomen soft but distended, tender in upper abdomen and RLQ NGT with minimal output Ostomy with small amount of flatus Plan: Continue conservative management: NPO , NGT to LIS, pain management (will likely require higher doses as she take oral Dilaudid at baseline) IV fluids, antiemetics as needed encourage ambulation continue medical management, will discuss about pain management given home dilaudid use abdominal binder will follow along Dr. Acosta has seen and examined patient. agrees with above Admission and Anticipated Discharge Date Admission Date: April 09, 2024 Subjective still having pain, seems worse today currently rating 8 Dilaudid not really helping, takes Dilaudid 2-3 times / day at home no output in ostomy today, maybe a little gas not ambulating hallway +nausea today Results & Data Vital Signs (Past 12 Hours) Vital Signs Temp Pulse Pulse Pulse Resp BP BP 04/11/24 07:44 128 H 128/82 04/11/24 07:44 36.8 C 128 H 17 128/82 04/11/24 06:31 134 H 142/79 H 04/11/24 06:24 134 H 04/11/24 03:32 109 H 121/72 04/11/24 02:54 117 H 120/67 04/11/24 02:50 36.7 C 117 H 20 04/11/24 00:37 106 H 119/73 04/11/24 00:11 115 H 130/71 BP Pulse Ox O2 Del Method O2 Flow Rate 04/11/24 07:44 04/11/24 07:44 94 Nasal Cannula 2.5 04/11/24 06:31 04/11/24 06:24 142/79 H 04/11/24 03:32 04/11/24 02:54 04/11/24 02:50 120/67 90 Nasal Cannula 3 04/11/24 00:37 04/11/24 00:11 Laboratory Results 04/11/24 04/11/24 04/11/24 Range/Units 06:14 05:45 00:35 WBC 4.31 L (4.8-10.8) K/ul RBC 4.53 (4.20-5.40) M/uL Hgb 13.1 (12.0-16.0) g/dl Hct 40.5 (37.0-47.0) % MCV 89.4 (80.0-100.0) fL MCH 28.9 (25.0-34.0) pg MCHC 32.3 (32.0-36.0) g/dL RDW Std Deviation 44.5 (36.4-46.3) fL RDW Coeff of Chelle 13.7 (11.5-14.5) % Plt Count 271 (130-400) K/uL MPV 8.8 L (9.4-12.4) fL Sodium 135 L (136-145) mmol/L Potassium 3.8 (3.5-5.1) mmol/L Chloride 95 L (98-107) mmol/L Carbon Dioxide 29 (21-32) mmol/L Anion Gap 11 (3-11) BUN 36 H (6-23) mg/dl Creatinine 1.46 H (0.6-1.2) mg/dl Est Cr Clr Drug Dosing 36.3 ml/min eGFR 38.97 BUN/Creatinine Ratio 24.7 H (10-20) Glucose 176 H (70-99(Fasting)) mg/dl POC Glucose 172 H 171 H (70-99) mg/dl Calcium 9.5 (8.6-10.3) mg/dl Magnesium 1.6 L (1.7-2.4) mg/dl 04/10/24 04/10/24 04/10/24 Range/Units 17:56 12:10 05:17 WBC (4.8-10.8) K/ul RBC (4.20-5.40) M/uL Hgb (12.0-16.0) g/dl Hct (37.0-47.0) % MCV (80.0-100.0) fL MCH (25.0-34.0) pg MCHC (32.0-36.0) g/dL RDW Std Deviation (36.4-46.3) fL RDW Coeff of Chelle (11.5-14.5) % Plt Count (130-400) K/uL MPV (9.4-12.4) fL Sodium (136-145) mmol/L Potassium (3.5-5.1) mmol/L Chloride (98-107) mmol/L Carbon Dioxide (21-32) mmol/L Anion Gap (3-11) BUN (6-23) mg/dl Creatinine (0.6-1.2) mg/dl Est Cr Clr Drug Dosing ml/min eGFR BUN/Creatinine Ratio (10-20) Glucose (70-99(Fasting)) mg/dl POC Glucose 151 H 148 H (70-99) mg/dl Calcium (8.6-10.3) mg/dl Magnesium 1.8 (1.7-2.4) mg/dl
--- NOTE | 2024-04-11 12:35 | Electrocardiogram Report ---
Test Reason : Blood Pressure : */* mmHG Vent. Rate : 123 BPM Atrial Rate : 123 BPM P-R Int : 152 ms QRS Dur : 74 ms QT Int : 308 ms P-R-T Axes : 74 68 55 degrees QTcB Int : 440 ms Sinus tachycardia with Premature atrial complexes Inferior-posterior infarct (cited on or before 23-Dec-2023) Abnormal ECG When compared with ECG of 24-Dec-2023 00:27, Premature atrial complexes are now Present Nonspecific T wave abnormality no longer evident in Anterior leads Confirmed by Marquise Eason ([id number]) on 04/11/2024 12:33:30 PM Referred By: REFERRED SELF Confirmed By: Marquise Eason
[2024-04-11] MEDS: METOPROLOL TARTRATE 1 MG/ML VIAL IV SCH (12:40)
[2024-04-11] MEDS: HYDROmorphone INJ 0.5 MG/0.5 ML SYR IV PRN (14:15)
--- NOTE | 2024-04-11 15:16 | Hospitalist Progress Note ---
Date of Service April 11, 2024 Assessment & Plan (1) SBO (small bowel obstruction): Plan: Recurrent small bowel obstruction H/O anal squamous cell carcinoma S/P ileostomy H/O cholecystectomy, hysterectomy --CT ABD: Small bowel obstruction at the level of the mid to distal small bowel with transition point not clearly defined possibly in the left lower quadrant. Consider adhesions. Dilated loops involve the loop ileostomy which does not appear obstructing. Nonspecific mild ascites. No free air or abscess. Stable bilateral adrenal masses. -- Pain control, bowel rest, IV fluids Appreciate surgery input Continue NG tube Antiemetics as needed Encourage ambulation Pain control Continue conservative management as per surgery Abnormal urinalysis likely contaminated sample Urine culture not contributory Repeat urine culture Empirically on IV Rocephin Suspected upper GI bleed Likely due to traumatic NG tube placement H/O hemorrhoidectomy, anal cancer, GERD Melena last admission Continue IV Protonix Monitor H&H and transfuse as needed Hold aspirin for now Avoid anticoagulation for now JOSEPHINE on CKD II Monitor renal function Avoid nephrotoxic agents as able Continue IV fluids Narcotic use for fibromyalgia Chronic pain Chronic diastolic heart failure Valvular heart disease (trace AR/TR/MR) No overt signs of volume overload Hold home Lasix Monitor volume status DM II Last HbA1c 6.6 Monitor blood glucose levels Continue insulin while hospitalized Hypertension Resume home medications as able Hyperlipidemia on statin Chronic respiratory failure secondary to COPD on home O2 as needed Pulmonary hypertension Currently no signs of COPD exacerbation Lung adenocarcinoma S/P radiation Essential tremors on propranolol ongoing tobacco abuse--personal counselor to quit smoking DVT Px: SDCDs re: GI bleed CODE STATUS Full code Admission and Anticipated Discharge Date Admission Date: April 09, 2024 Subjective Patient is seen and examined at bedside Continues to have abdominal pain Tachycardic on monitor Less nausea today Denies any chest pain, dyspnea, dizziness Review of Systems Review of Systems: All systems reviewed & are unremarkable except as noted in Subjective Physical Exam Physical Exam: Physical Exam: Vitals signs as noted above General Appearance:Moderately built and nourished, no apparent distress,+NG tube Head: normocephalic, Atraumatic Eyes: normal inspection, EOMI Neck: supple, Trachea midline Respiratory/Chest: Normal breath sounds, CTA, No accessory muscle use Cardiovascular: S1, S2, + murmur,+ tachycardia Abdomen/GI:Soft,+ ileostomy, mildly distended, right-sided tenderness, + hernia, mild guarding, no rigidity, + faint bowel sounds Extremities/Musculoskeletal:normal inspection, no edema Neurologic/Psych:AAOX3, grossly no focal neurological deficits Skin: normal color, warm Results & Data Results & Data Vital Signs (Past 12 Hours) Vital Signs Temp Pulse Pulse Resp BP BP BP 04/11/24 13:32 113 H 114/70 04/11/24 12:40 120 H 136/72 04/11/24 10:57 37.0 C 128 H 20 137/75 04/11/24 08:00 04/11/24 08:00 123 H 04/11/24 07:44 128 H 128/82 04/11/24 07:44 36.8 C 128 H 17 128/82 04/11/24 06:31 134 H 142/79 H 04/11/24 06:24 134 H 142/79 H 04/11/24 03:32 109 H 121/72 Pulse Ox O2 Del Method O2 Flow Rate 04/11/24 13:32 04/11/24 12:40 04/11/24 10:57 92 Nasal Cannula 3 04/11/24 08:00 Room Air 04/11/24 08:00 04/11/24 07:44 04/11/24 07:44 94 Nasal Cannula 2.5 04/11/24 06:31 04/11/24 06:24 04/11/24 03:32 Laboratory Results Short CBC 04/11/24 Range/Units 06:14 WBC 4.31 L (4.8-10.8) K/ul Hgb 13.1 (12.0-16.0) g/dl Hct 40.5 (37.0-47.0) % Plt Count 271 (130-400) K/uL BMP 04/11/24 06:14 Sodium 135 L Potassium 3.8 Chloride 95 L Carbon Dioxide 29 BUN 36 H Creatinine 1.46 H Glucose 176 H Calcium 9.5
[2024-04-11] MEDS: SODIUM CHLORIDE 0.9% 1,000 ML IV SCH (18:34)
[2024-04-12] MEDS: CHLORASEPTIC (PHENOL) 1.4% SOLN 180 ML BTL MT PRN (05:30)
[2024-04-12 08:48] LABS: Hematocrit (blood only) 35.7 % (37.0-47.0); Hemoglobin 11.8 g/dl (12.0-16.0); Mean Corpuscular Hemoglobin 29.8 pg (25.0-34.0); Mean Corpuscular Hgb Conc 33.1 g/dL (32.0-36.0); Mean Corpuscular Volume 90.2 fL (80.0-100.0); Mean Platelet Volume 8.8 fL (9.4-12.4); Platelet Count 285 K/uL (130-400); RDW Coefficient of Variation 13.4 % (11.5-14.5); RDW Standard Deviation 45.2 fL (36.4-46.3); Red Blood Count 3.96 M/uL (4.20-5.40); White Blood Count 9.65 K/ul (4.8-10.8)
--- NOTE | 2024-04-12 08:51 | XRay Report ---
KUB CLINICAL HISTORY: Small bowel obstruction. COMPARISON STUDY: CT of the abdomen and pelvis and KUB April 09, 2024. FINDINGS: Status post cholecystectomy. Nasogastric tube is well-positioned. The tip is within the bod y of the stomach. Numerous loops of mildly dilated small bowel are similar to prior CT. There is no e vidence for free air although sensitivity is diminished on supine exam. Trace left pleural effusion. IMPRESSION: 1. No significant change in small bowel dilatation consistent with a persistent small bowel obstructi on. 2. Appropriately positioned nasogastric tube. ACT 112: Negative or not required by law. Electronically signed by: Nishant Kern M.D. 04/12/2024 8:50 AM
--- NOTE | 2024-04-12 08:52 | Hospitalist Progress Note ---
Date of Service April 12, 2024 Assessment & Plan (1) SBO (small bowel obstruction): Plan: This is multifactorial, most likely due to multiple surgeries that she has had in the past although I am concerned that she might have a dysfunctional ostomy because of her ongoing bowel sounds and presence of abdominal distention. I have ordered a KUB which I will review, follow along with general surgery. Monitor NG output. (2) COPD (chronic obstructive pulmonary disease): Plan: Clinically stable, continue with home oxygen, continue with Anoro Ellipta and Arnuity Ellipta. Monitor and treat as needed. Plan At this point considering that the patient has significant NG output, none of the home medications can be given, will monitor and observe NG output and await ostomy output even though bowel sounds are reasonable. Follow with recommendation by general surgery. Blood work from this morning is still pending, review any electrolyte abnormality and replace if needed. Admission and Anticipated Discharge Date Admission Date: April 09, 2024 Subjective Patient is a unfortunate 68-year-old woman with history of hypertension, hyperlipidemia, COPD with chronic hypoxemic respiratory failure on home oxygen, diabetes mellitus type 2, chronic kidney disease, anal cancer status post chemoradiation and surgery status post colostomy, chronic pain who was admitted to the hospital with what appears to have been a small bowel obstruction. NG tube was placed for decompression, patient was seen by gastroenterology. I looked at the colostomy that she carries from before this admission and this is still empty. Overnight they have emptied her canister several times. She feels generally better after NG tube placement, on examination she does have good bowel sounds but there is no ostomy output. She was seen and examined. Clinically otherwise stable. She had some soreness at the contact site of NG tube. Physical Exam Physical Exam: VITALS: Reviewed. WEIGHT/BMI reviewed. GEN: Healthy appearing, well-developed, NAD. PSYCH: Good Judgment. AOx3. Normal memory, mood, and affect. CV: RRR, no m/r/g. LUNGS: CTAB, no w/r/c. ABD: Abdomen appears distended, bowel sounds were hyperactive, NG tube is in place : N/A SKIN: Warm, well perfused. No skin rashes or abnormal lesions. Results & Data Results & Data Vital Signs (Past 12 Hours) Vital Signs Temp Pulse Pulse Resp BP BP Pulse Ox 04/12/24 08:05 37.0 C 101 H 20 134/79 91 04/12/24 05:56 96 H 121/69 04/12/24 05:31 102 H 126/71 04/12/24 03:40 36.6 C 102 H 16 126/71 90 04/12/24 01:15 109 H 114/67 04/12/24 01:12 36.9 C 109 H 20 114/67 91 04/12/24 00:06 65 112/71 04/11/24 22:40 36.8 C 107 H 18 112/71 92 04/11/24 21:46 108 H O2 Del Method O2 Flow Rate 04/12/24 08:05 Nasal Cannula 3 04/12/24 05:56 04/12/24 05:31 04/12/24 03:40 Nasal Cannula 3 04/12/24 01:15 04/12/24 01:12 Nasal Cannula 3 04/12/24 00:06 04/11/24 22:40 Nasal Cannula 3 04/11/24 21:46 Laboratory Results Laboratory Results - last 24 hr 04/11/24 04/11/24 04/12/24 12:01 18:06 00:19 WBC RBC Hgb Hct MCV MCH MCHC Plt Count Sodium Potassium Chloride Carbon Dioxide Anion Gap BUN Creatinine Est Cr Clr Drug Dosing eGFR BUN/Creatinine Ratio Glucose POC Glucose 209 H 147 H 139 H Calcium Magnesium 04/12/24 04/12/24 05:48 08:34 WBC Pending RBC Pending Hgb Pending Hct Pending MCV Pending MCH Pending MCHC Pending Plt Count Pending Sodium Pending Potassium Pending Chloride Pending Carbon Dioxide Pending Anion Gap Pending BUN Pending Creatinine Pending Est Cr Clr Drug Dosing Pending eGFR Pending BUN/Creatinine Ratio Pending Glucose Pending POC Glucose 126 H Calcium Pending Magnesium Pending Medications Administered Current Inpatient Medications Atorvastatin Calcium (Atorvastatin 20 Mg Tab) 20 mg PO HS [facility] Stop: 05/10/24 20:59 Last Admin: 04/11/24 20:15 Dose: 20 mg Bupropion HCl (Bupropion Xl 300 Mg Tabcr) 300 mg PO QAM [facility] Stop: 05/10/24 08:59 Last Admin: 04/12/24 08:21 Dose: 300 mg Dextrose (Dextrose 50% 50 Ml Syringe) 25 - 50 ml IV UD PRN; Protocol PRN Reason: Hypoglycemia Protocol Stop: 05/09/24 22:30 Duloxetine HCl (Duloxetine Hcl 60 Mg Cap) 60 mg PO QAM [facility] Stop: 05/10/24 08:59 Last Admin: 04/12/24 08:24 Dose: 60 mg Fluticasone Furoate (Fluticasone Furoate 200mcg 14 Puffs/Inhaler) 1 puffs INH DAILY [facility] Stop: 05/10/24 08:59 Last Admin: 04/12/24 08:24 Dose: 1 puffs Fluticasone Propionate (Fluticasone Propionate Na Spr 16 Gm Btl) 2 sprays NA QAM PRN PRN Reason: Allergy Symptoms Stop: 05/09/24 22:29 Gabapentin (Gabapentin 300 Mg Cap) 300 mg PO TID [facility] Stop: 05/10/24 08:59 Last Admin: 04/12/24 08:21 Dose: 300 mg Glucagon (Glucagon For Inj 1 Mg Vial) 1 mg SQ UD PRN; Protocol PRN Reason: Hypoglycemia Protocol Stop: 05/09/24 22:30 Glucose (Glucose 40% Gel 15 Gm Tube) 15 - 30 gm PO UD PRN; Protocol PRN Reason: Hypoglycemia Protocol Stop: 05/09/24 22:30 Glucose (Glucose 10 Tab/Tube) 4 - 8 tab PO UD PRN; Protocol PRN Reason: Hypoglycemia Protocol Stop: 05/09/24 22:30 Hydromorphone HCl (Hydromorphone Inj 0.5 Mg/0.5 Ml Syr) 1 mg IV Q3H PRN PRN Reason: Moderate Pain (Scale 4, 5, 6) Stop: 04/24/24 09:25 Last Admin: 04/12/24 08:18 Dose: 1 mg Acetaminophen (Ofirmev) 1,000 mg in 100 mls @ 400 mls/hr IV Q8H PRN PRN Reason: pain/fever Stop: 04/12/24 20:26 Last Infusion: 04/11/24 20:30 Dose: Infused Promethazine HCl (Phenergan) 6.25 mg in 50.25 mls @ 201 mls/hr IV Q6H PRN PRN Reason: Nausea And Vomiting Stop: 05/09/24 20:26 Last Infusion: 04/11/24 03:34 Dose: Infused Pantoprazole Sodium (Protonix) 40 mg in 10 mls @ 5 mls/min IV BID [facility] Stop: 05/10/24 08:59 Last Admin: 04/12/24 08:20 Dose: 5 mls/min Ceftriaxone Sodium (Rocephin) 1,000 mg in 50 mls @ 100 mls/hr IV Q24H [facility] Stop: 04/15/24 13:59 Last Infusion: 04/11/24 15:25 Dose: Infused Sodium Chloride (Nss) 1,000 mls @ 80 mls/hr IV .[id number] [facility] Stop: 04/12/24 16:14 Last Admin: 04/12/24 06:00 Dose: 80 mls/hr Insulin Aspart (Insulin Aspart Per Unit Charge) 0 units SC Q6 [facility] Stop: 05/09/24 22:34 Last Admin: 04/12/24 05:53 Dose: Not Given Lorazepam (Lorazepam 2 Mg/1 Ml Vial) 0.5 mg IV Q4H PRN PRN Reason: Anxiety/Agitation Stop: 05/09/24 20:27 Metoprolol Tartrate (Metoprolol Tartrate 1 Mg/Ml Vial) 5 mg IV Q6H [facility] Stop: 05/11/24 11:29 Last Admin: 04/12/24 05:31 Dose: 5 mg Miscellaneous (Order Awaiting Action: Ropinirole 6 Mg Tablet Extended Release 24 Hr) 1 each N/A QS [facility] Stop: 05/10/24 00:00 Last Admin: 04/12/24 08:20 Dose: Not Given Miscellaneous (Carbohydrates For Hypoglycemia ) 15 - 30 gm PO UD PRN PRN Reason: Hypoglycemia Protocol Stop: 05/09/24 22:30 Ondansetron HCl (Ondansetron Inj 2 Mg/Ml 2 Ml Vial) 4 mg IV Q6H PRN PRN Reason: Nausea And Vomiting Stop: 05/10/24 11:09 Last Admin: 04/12/24 03:33 Dose: 4 mg Phenol (Chloraseptic (Phenol) 1.4% Soln 180 Ml Btl) 2 sprays MT Q6H PRN PRN Reason: Sore Throat Stop: 05/10/24 10:55 Last Admin: 04/12/24 08:19 Dose: 2 sprays Tizanidine HCl (Tizanidine Hcl 4 Mg Tablet) 2 mg PO QID PRN PRN Reason: spasm Stop: 05/09/24 22:29 Last Admin: 04/12/24 08:26 Dose: 2 mg Trazodone HCl (Trazodone Hcl 50 Mg Tab) 50 mg PO HS [facility] Stop: 05/10/24 20:59 Last Admin: 04/11/24 20:15 Dose: 50 mg Umeclidinium/Vilanterol (Umeclidinium/Vilanterol 62.5/25mcg 7 Puffs/Inhaler) 1 puffs INH DAILY [facility] Stop: 05/10/24 08:59 Last Admin: 04/12/24 08:24 Dose: 1 puffs (2) COPD (chronic obstructive pulmonary disease) COPD type: emphysema Emphysema type: other Qualified Code(s): J43.8 - Other emphysema
[2024-04-12 09:15] LABS: BUN Creatinine Ratio 24.3 (10-20); Calcium 9.6 mg/dl (8.6-10.3); Creatinine Clr Calc Pharmacy 34.7 ml/min; Magnesium 1.9 mg/dl (1.7-2.4)
--- NOTE | 2024-04-12 09:56 | Surgery Progress Note ---
Date of Service April 12, 2024 Assessment & Plan (1) SBO (small bowel obstruction): Plan: con't NG OOB limit narcotics Admission and Anticipated Discharge Date Admission Date: April 09, 2024 Subjective feels a little better some stool from ostomy a lot og NG drainage still Review of Systems Constitutional: no fever and no chills Respiratory: no cough and no dyspnea Cardiovascular: no chest pain Gastrointestinal: + abdominal pain and + change in bowel h abits; no nausea and no vomiting Genitourinary: no dysuria Neurologic: no localized weakness and no generalized weakness Psychiatric: no behavioral changes Physical Exam Constitutional: WD/WN, vitals as above Respiratory: normal respiratory effort, lungs clear to auscultation Cardiovascular: RRR, no murmur, no edema Gastrointestinal (Abdomen): Inspection/Auscultation: abdomen normal to inspection, + abdomen distended and normal bowel sounds Percussion/Palpation: + abdomen tender and abdomen soft; no guarding and abdomen not rigid Musculoskeletal: Head/Neck/Chest: normocephalic and head atraumatic Skin: no rashes, warm and dry Results & Data Vital Signs (Past 12 Hours) Vital Signs Temp Pulse Pulse Resp BP BP Pulse Ox 04/12/24 09:46 96 H 04/12/24 09:46 04/12/24 08:05 37.0 C 101 H 20 134/79 91 04/12/24 05:56 96 H 121/69 04/12/24 05:31 102 H 126/71 04/12/24 03:40 36.6 C 102 H 16 126/71 90 04/12/24 01:15 109 H 114/67 04/12/24 01:12 36.9 C 109 H 20 114/67 91 04/12/24 00:06 65 112/71 04/11/24 22:40 36.8 C 107 H 18 112/71 92 O2 Del Method O2 Flow Rate 04/12/24 09:46 04/12/24 09:46 Room Air, Nasal Cannula 3 04/12/24 08:05 Nasal Cannula 3 04/12/24 05:56 04/12/24 05:31 04/12/24 03:40 Nasal Cannula 3 04/12/24 01:15 04/12/24 01:12 Nasal Cannula 3 04/12/24 00:06 04/11/24 22:40 Nasal Cannula 3
[2024-04-13] MEDS: D5W AND NSS 1,000 ML IV ONE (00:28)
[2024-04-13 08:57] LABS: BUN Creatinine Ratio 22.6 (10-20); Calcium 8.5 mg/dl (8.6-10.3); Potassium 3.1 mmol/L (3.5-5.1)
--- NOTE | 2024-04-13 10:19 | Surgery Progress Note ---
Date of Service April 13, 2024 Assessment & Plan (1) SBO (small bowel obstruction): Plan: con't NG OOB limit narcotics highly encouraged ambulation order SBFT for tomorrow Discussed with Dr. Acosta who agrees with above. Admission and Anticipated Discharge Date Admission Date: April 09, 2024 Subjective feeling a bit better nausea is better pain still present but not as severe ambulating hallway some, not much no stool in ostomy just mucous feels stomach gurgling Physical Exam Constitutional: WD/WN, vitals as above + obese, cooperative and comfortable; no acute distress and not ill appearing Respiratory: normal respiratory effort; no respiratory distress and no labored breathing Gastrointestinal (Abdomen): Inspection/Auscultation: abdomen normal to inspection, + abdomen distended (mild) and + visible herniation (parastomal hernia) Percussion/Palpation: + abdomen tender and abdomen soft; no guarding and abdomen not rigid Right ileostomy, stoma is pink and edematous, no necrosis, mucous in the bag little gas in bag Skin: no rashes, warm and dry Psychiatric: Orientation: alert and oriented x 3 Results & Data Vital Signs (Past 12 Hours) Vital Signs Temp Pulse Pulse Resp BP BP Pulse Ox 04/13/24 08:00 04/13/24 07:36 36.5 C 96 H 18 126/67 90 04/13/24 07:00 92 H 04/13/24 05:27 93 H 113/68 04/13/24 05:07 100 H 133/72 04/13/24 03:04 36.9 C 94 H 18 128/71 93 04/13/24 00:10 94 H 130/76 04/12/24 23:36 04/12/24 22:52 100 H 04/12/24 22:22 91 H 18 122/74 94 O2 Del Method O2 Flow Rate 04/13/24 08:00 Nasal Cannula 3 04/13/24 07:36 Nasal Cannula 3 04/13/24 07:00 04/13/24 05:27 04/13/24 05:07 04/13/24 03:04 Nasal Cannula 3 04/13/24 00:10 04/12/24 23:36 Room Air, Nasal Cannula 3 04/12/24 22:52 04/12/24 22:22 Nasal Cannula 3 Laboratory Results 0104/13/24 04/12/24 Range/Units 07:27 05:03 23:47 Sodium 134 L (136-145) mmol/L Potassium 3.1 L D (3.5-5.1) mmol/L Chloride 98 (98-107) mmol/L Carbon Dioxide 28 (21-32) mmol/L Anion Gap 8 (3-11) BUN 26 H (6-23) mg/dl Creatinine 1.15 D (0.6-1.2) mg/dl Est Cr Clr Drug Dosing 46.0 ml/min eGFR 51.89 BUN/Creatinine Ratio 22.6 H (10-20) Glucose 95 (70-99(Fasting)) mg/dl POC Glucose 86 74 (70-99) mg/dl Calcium 8.5 L (8.6-10.3) mg/dl 04/12/24 04/12/24 Range/Units 18:13 12:04 Sodium (136-145) mmol/L Potassium (3.5-5.1) mmol/L Chloride (98-107) mmol/L Carbon Dioxide (21-32) mmol/L Anion Gap (3-11) BUN (6-23) mg/dl Creatinine (0.6-1.2) mg/dl Est Cr Clr Drug Dosing ml/min eGFR BUN/Creatinine Ratio (10-20) Glucose (70-99(Fasting)) mg/dl POC Glucose 86 140 H (70-99) mg/dl Calcium (8.6-10.3) mg/dl
--- NOTE | 2024-04-13 10:33 | Hospitalist Progress Note ---
Date of Service April 13, 2024 Assessment & Plan (1) SBO (small bowel obstruction): Plan: This is multifactorial, most likely due to multiple surgeries that she has had in the past although I am concerned that she might have a dysfunctional ostomy, surgery to review this as well, patient continues to have bowel sounds but no output from ostomy, NG output is decreasing. Replace electrolytes as needed, continue with IV replacement. (2) COPD (chronic obstructive pulmonary disease): Plan: Clinically stable, continue with home oxygen, continue with Anoro Ellipta and Arnuity Ellipta. Monitor and treat as needed. (3) JOSEPHINE (acute kidney injury): Plan: This was present on admission,, creatinine was 1.4 which after hydration improved to 1.1. Will continue to IV hydrate. (4) Hypomagnesemia: Plan: Replaced and resolved, magnesium was 1.6, last measurement was 1.9. (5) Hypokalemia: Plan: Potassium was 3.1 and was replaced intravenously. Plan Continue with NG suctioning and monitor output, await return of bowel function and some output from ostomy prior to decision for removing the NG tube. Replace electrolytes as needed. Defer further management and recommendation to general surgery. Admission and Anticipated Discharge Date Admission Date: April 09, 2024 Subjective Patient is a unfortunate 68-year-old woman with history of hypertension, hyperlipidemia, COPD with chronic hypoxemic respiratory failure on home oxygen, diabetes mellitus type 2, chronic kidney disease, anal cancer status post chemoradiation and surgery status post colostomy, chronic pain who was admitted to the hospital with what appears to have been a small bowel obstruction. NG tube was placed for decompression, patient was seen by gastroenterology. I looked at the colostomy that she carries from before this admission and this is still empty. Overnight they have emptied her canister several times. Patient felt better after NG tube was placed. Patient was seen and examined, over the past 24 hours, I was told that she had about 200 mL output from NG, still not much output from the ostomy. Abdomen on examination still a little distended but better than yesterday. Physical Exam Physical Exam: VITALS: Reviewed. WEIGHT/BMI reviewed. GEN: Healthy appearing, well-developed, NAD. CV: RRR, no m/r/g. LUNGS: CTAB, no w/r/c. ABD: Abdomen appears distended, bowel sounds were hyperactive, NG tube is in place : N/A SKIN: Warm, well perfused. No skin rashes or abnormal lesions. Results & Data Results & Data Vital Signs (Past 12 Hours) Vital Signs Temp Pulse Pulse Resp BP BP Pulse Ox 04/13/24 08:00 04/13/24 07:36 36.5 C 96 H 18 126/67 90 04/13/24 07:00 92 H 04/13/24 05:27 93 H 113/68 04/13/24 05:07 100 H 133/72 04/13/24 03:04 36.9 C 94 H 18 128/71 93 04/13/24 00:10 94 H 130/76 04/12/24 23:36 04/12/24 22:52 100 H O2 Del Method O2 Flow Rate 04/13/24 08:00 Nasal Cannula 3 04/13/24 07:36 Nasal Cannula 3 04/13/24 07:00 04/13/24 05:27 04/13/24 05:07 04/13/24 03:04 Nasal Cannula 3 04/13/24 00:10 04/12/24 23:36 Room Air, Nasal Cannula 3 04/12/24 22:52 Laboratory Results Laboratory Results - last 24 hr 04/12/24 04/12/24 04/12/24 12:04 18:13 23:47 Sodium Potassium Chloride Carbon Dioxide Anion Gap BUN Creatinine Est Cr Clr Drug Dosing eGFR BUN/Creatinine Ratio Glucose POC Glucose 140 H 86 74 Calcium 04/13/24 04/13/24 05:03 07:27 Sodium 134 L Potassium 3.1 L D Chloride 98 Carbon Dioxide 28 Anion Gap 8 BUN 26 H Creatinine 1.15 D Est Cr Clr Drug Dosing 46.0 eGFR 51.89 BUN/Creatinine Ratio 22.6 H Glucose 95 POC Glucose 86 Calcium 8.5 L Medications Administered Current Inpatient Medications Atorvastatin Calcium (Atorvastatin 20 Mg Tab) 20 mg PO HS [facility] Stop: 05/10/24 20:59 Last Admin: 04/12/24 21:38 Dose: Not Given Bupropion HCl (Bupropion Xl 300 Mg Tabcr) 300 mg PO QAM [facility] Stop: 05/10/24 08:59 Last Admin: 04/13/24 07:48 Dose: Not Given Dextrose (Dextrose 50% 50 Ml Syringe) 25 - 50 ml IV UD PRN; Protocol PRN Reason: Hypoglycemia Protocol Stop: 05/09/24 22:30 Duloxetine HCl (Duloxetine Hcl 60 Mg Cap) 60 mg PO QAM [facility] Stop: 05/10/24 08:59 Last Admin: 04/13/24 07:48 Dose: Not Given Fluticasone Furoate (Fluticasone Furoate 200mcg 14 Puffs/Inhaler) 1 puffs INH DAILY [facility] Stop: 05/10/24 08:59 Last Admin: 04/13/24 07:49 Dose: 1 puffs Fluticasone Propionate (Fluticasone Propionate Na Spr 16 Gm Btl) 2 sprays NA QAM PRN PRN Reason: Allergy Symptoms Stop: 05/09/24 22:29 Gabapentin (Gabapentin 300 Mg Cap) 300 mg PO TID [facility] Stop: 05/10/24 08:59 Last Admin: 04/13/24 07:48 Dose: Not Given Glucagon (Glucagon For Inj 1 Mg Vial) 1 mg SQ UD PRN; Protocol PRN Reason: Hypoglycemia Protocol Stop: 05/09/24 22:30 Glucose (Glucose 40% Gel 15 Gm Tube) 15 - 30 gm PO UD PRN; Protocol PRN Reason: Hypoglycemia Protocol Stop: 05/09/24 22:30 Glucose (Glucose 10 Tab/Tube) 4 - 8 tab PO UD PRN; Protocol PRN Reason: Hypoglycemia Protocol Stop: 05/09/24 22:30 Hydromorphone HCl (Hydromorphone Inj 0.5 Mg/0.5 Ml Syr) 1 mg IV Q3H PRN PRN Reason: Moderate Pain (Scale 4, 5, 6) Stop: 04/24/24 09:25 Last Admin: 04/13/24 08:21 Dose: 1 mg Promethazine HCl (Phenergan) 6.25 mg in 50.25 mls @ 201 mls/hr IV Q6H PRN PRN Reason: Nausea And Vomiting Stop: 05/09/24 20:26 Last Infusion: 04/13/24 09:42 Dose: Infused Pantoprazole Sodium (Protonix) 40 mg in 10 mls @ 5 mls/min IV BID [facility] Stop: 05/10/24 08:59 Last Admin: 04/13/24 07:51 Dose: 5 mls/min Ceftriaxone Sodium (Rocephin) 1,000 mg in 50 mls @ 100 mls/hr IV Q24H [facility] Stop: 04/15/24 13:59 Last Infusion: 04/12/24 15:32 Dose: Infused Dextrose/Sodium Chloride (D5w And Nss) 1,000 mls @ 50 mls/hr IV .Q20H [facility] Stop: 04/13/24 19:53 Last Admin: 04/13/24 00:28 Dose: 50 mls/hr Potassium Chloride (K [place] / Wtr) 10 meq in 100 mls @ 100 mls/hr IV Q1H [facility] Stop: 04/13/24 14:29 Insulin Aspart (Insulin Aspart Per Unit Charge) 0 units SC Q6 [facility] Stop: 05/09/24 22:34 Last Admin: 04/13/24 05:07 Dose: Not Given Lorazepam (Lorazepam 2 Mg/1 Ml Vial) 0.5 mg IV Q4H PRN PRN Reason: Anxiety/Agitation Stop: 05/09/24 20:27 Metoprolol Tartrate (Metoprolol Tartrate 1 Mg/Ml Vial) 5 mg IV Q6H [facility] Stop: 05/11/24 11:29 Last Admin: 04/13/24 05:12 Dose: 5 mg Miscellaneous (Order Awaiting Action: Ropinirole 6 Mg Tablet Extended Release 24 Hr) 1 each N/A QS [facility] Stop: 05/10/24 00:00 Last Admin: 04/13/24 07:42 Dose: Not Given Miscellaneous (Carbohydrates For Hypoglycemia ) 15 - 30 gm PO UD PRN PRN Reason: Hypoglycemia Protocol Stop: 05/09/24 22:30 Ondansetron HCl (Ondansetron Inj 2 Mg/Ml 2 Ml Vial) 4 mg IV Q6H PRN PRN Reason: Nausea And Vomiting Stop: 05/10/24 11:09 Last Admin: 04/12/24 03:33 Dose: 4 mg Phenol (Chloraseptic (Phenol) 1.4% Soln 180 Ml Btl) 2 sprays MT Q6H PRN PRN Reason: Sore Throat Stop: 05/10/24 10:55 Last Admin: 04/12/24 16:25 Dose: 2 sprays Tizanidine HCl (Tizanidine Hcl 4 Mg Tablet) 2 mg PO QID PRN PRN Reason: spasm Stop: 05/09/24 22:29 Last Admin: 04/12/24 08:26 Dose: 2 mg Trazodone HCl (Trazodone Hcl 50 Mg Tab) 50 mg PO HS [facility] Stop: 05/10/24 20:59 Last Admin: 04/12/24 21:39 Dose: Not Given Umeclidinium/Vilanterol (Umeclidinium/Vilanterol 62.5/25mcg 7 Puffs/Inhaler) 1 puffs INH DAILY [facility] Stop: 05/10/24 08:59 Last Admin: 04/13/24 07:49 Dose: 1 puffs (2) COPD (chronic obstructive pulmonary disease) COPD type: emphysema Emphysema type: other Qualified Code(s): J43.8 - Other emphysema
[2024-04-13] MEDS: POTASSIUM CHLORIDE / WTR 10 MEQ/100 ML PLCT IV SCH (10:48)
--- NOTE | 2024-04-13 13:05 | XRay Report ---
XR KUB/Abdomen 1 view CLINICAL HISTORY: NGT placement TECHNIQUE: 1 view of the abdomen was obtained. Comparison: Comparison is made to abdomen radiograph 04/12/2024 FINDINGS: Enteric tube terminates in the stomach. Degenerative changes are seen in the visualized skeleton. Mul tiple dilated loops of small bowel are seen. A moderate amount of stool is noted within the large bow el. IMPRESSION: 1. Satisfactory position of enteric tube. 2. Unchanged small bowel obstruction. ACT 112: Negative or not required by law. Electronically signed by: Flip Malone M.D. 04/13/2024 1:04 PM
[2024-04-14 06:57] LABS: Hematocrit (blood only) 34.7 % (37.0-47.0); Hemoglobin 11.3 g/dl (12.0-16.0); Mean Corpuscular Hemoglobin 29.4 pg (25.0-34.0); Mean Corpuscular Hgb Conc 32.6 g/dL (32.0-36.0); Mean Corpuscular Volume 90.4 fL (80.0-100.0); Mean Platelet Volume 8.6 fL (9.4-12.4); Platelet Count 248 K/uL (130-400); RDW Coefficient of Variation 13.6 % (11.5-14.5); Red Blood Count 3.84 M/uL (4.20-5.40); White Blood Count 6.12 K/ul (4.8-10.8)
[2024-04-14 07:18] LABS: Basophils # (auto) 0.05 K/uL (0.00-0.20); Basophils % (auto) 0.8 %; Eosinophils # (auto) 0.07 K/uL (0.00-0.50); Eosinophils % (auto) 1.1 %; Immature Granulocytes # (auto) 0.45 K/uL (0.01-0.20); Immature Granulocytes % (auto) 7.4 %; Lymphocytes # (auto) 0.56 K/uL (1.20-3.40); Lymphocytes % (auto) 9.2 %; Monocytes % (auto) 11.4 %; Neutrophils # (auto) 4.29 K/uL (1.40-6.50); Neutrophils % (auto) 70.1 %
[2024-04-14 07:25] LABS: BUN Creatinine Ratio 15.8 (10-20); Calcium 8.6 mg/dl (8.6-10.3); Creatinine Clr Calc Pharmacy 53.4 ml/min; Potassium 3.1 mmol/L (3.5-5.1)
--- NOTE | 2024-04-14 11:20 | Surgery Progress Note ---
<Statement entered by Javi Holland, DO - 04/14/24 15:52> I agree with this plan Date of Service April 14, 2024 Assessment & Plan (1) SBO (small bowel obstruction): Plan: Hx of loop ileostomy and s/p radiation therapy for anal cancer SBFT today, results pending small liquid brown stool and air from ileostomy overnight and into this Am ABD is still distended, and TTP NGT with dark green o/p 200ml in last 8hr. continue with NGT , NPO , IV fluids Will follow along, Dr Holland covering weekend Admission and Anticipated Discharge Date Admission Date: April 09, 2024 Subjective on going abd pain and distention +ostomy o/p and air mild nausea Review of Systems Gastrointestinal: + abdominal pain, + bloating and + nause a; no vomiting Physical Exam Constitutional: comfortable Gastrointestinal (Abdomen): Inspection/Auscultation: + abdomen distended and + abdominal surgical scar Percussion/Palpation: + abdomen tender Results & Data Vital Signs (Past 12 Hours) Vital Signs Temp Pulse Pulse Resp BP BP Pulse Ox 04/14/24 10:11 04/14/24 08:02 97.7 F 98 H 18 144/76 H 91 04/14/24 06:31 100 H 142/72 H 04/14/24 03:35 99.0 F 100 H 18 142/72 H 94 04/13/24 23:56 95 H 134/73 04/13/24 23:41 95 H 04/13/24 23:16 99.1 F 96 H 18 134/73 93 O2 Del Method O2 Flow Rate 04/14/24 10:11 Nasal Cannula 3 04/14/24 08:02 Nasal Cannula 3 04/14/24 06:31 04/14/24 03:35 Nasal Cannula 3 04/13/24 23:56 04/13/24 23:41 04/13/24 23:16 Nasal Cannula 3 Results CBC w Diff Results: RBC 3.84 M/uL (4.20-5.40) L 04/14/24 WBC 6.12 K/ul (4.8-10.8) 04/14/24 Hgb 11.3 g/dl (12.0-16.0) L 04/14/24 Hct 34.7 % (37.0-47.0) L 04/14/24 MCV 90.4 fL (80.0-100.0) 04/14/24 MCH 29.4 pg (25.0-34.0) 04/14/24 MCHC 32.6 g/dL (32.0-36.0) 04/14/24 RDW Standard Deviation 45.0 fL (36.4-46.3) 04/14/24 RDW Coefficient of Variation 13.6 % (11.5-14.5) 04/14/24 Plt Count 248 K/uL (130-400) 04/14/24 MPV 8.6 fL (9.4-12.4) L 04/14/24 Nucleated Red Blood Cells % (auto) 0.1 % 12/22 Nucleated RBC Absolute Count (auto) 0.02 K/uL (0.00-0.12) 0 12/23/23 Neutrophils (%) (Auto) 70.1 % 04/14/24 Lymphocytes (%) (Auto) 9.2 % 04/14/24 Monocytes # (Auto) 0.70 K/uL (0.11-0.59) H 04/14/24 Eosinophils # (Auto) 0.07 K/uL (0.00-0.50) 04/14/24 Immature Granulocyte % (Auto) 7.4 % 04/14/24 Neutrophils # (Auto) 4.29 K/uL (1.40-6.50) 04/14/24 Lymphocytes # (Auto) 0.56 K/uL (1.20-3.40) L 04/14/24 Monocytes # (Auto) 0.70 K/uL (0.11-0.59) H 04/14/24 Eosinophils # (Auto) 0.07 K/uL (0.00-0.50) 04/14/24 Basophils # (Auto) 0.05 K/uL (0.00-0.20) 04/14/24 Immature Granulocyte # (Auto) 0.45 K/uL (0.01-0.20) H 04/14 Polychromasia 1+ 03/02/22 Anisocytosis Present 07/26/19 PG Care Time/CCT Total # of Minutes Spent Total Time Spent with Patient: Total time spent is greater than 50% in coordination of care (as documented) at patient's floor/unit and/or counseling patient: Coding Level of Care Code 89326 SUB INP/OBS CARE 05/06MIN Diagnoses SBO (small bowel obstruction) K56.609
--- NOTE | 2024-04-14 12:40 | Hospitalist Progress Note ---
Date of Service April 14, 2024 Assessment & Plan (1) SBO (small bowel obstruction): Plan: This is multifactorial, most likely due to multiple surgeries that she has had in the past although I am concerned that she might have a dysfunctional ostomy, surgery to review this as well, patient continues to have bowel sounds but no output from ostomy, NG output is decreasing. Patient remained afebrile, abdominal examination is benign, no leukocytosis, follow with the result of small bowel follow-through. (2) COPD (chronic obstructive pulmonary disease): Plan: Clinically stable, continue with home oxygen, continue with Anoro Ellipta and Arnuity Ellipta. Monitor and treat as needed. (3) JOSEPHINE (acute kidney injury): Plan: This was present on admission,, creatinine was 1.4 which after hydration improved to 1.1. Remained stable. (4) Hypomagnesemia: Plan: Replaced and resolved, magnesium was 1.6, last measurement was 1.9. (5) Hypokalemia: Plan: Potassium was again 3.1 and will be replaced intravenously. Plan Continue with NG suctioning and monitor output, awaiting the result of a small bowel follow-through. Admission and Anticipated Discharge Date Admission Date: April 09, 2024 Subjective Patient is a unfortunate 68-year-old woman with history of hypertension, hyperlipidemia, COPD with chronic hypoxemic respiratory failure on home oxygen, diabetes mellitus type 2, chronic kidney disease, anal cancer status post chemoradiation and surgery status post colostomy, chronic pain who was admitted to the hospital with what appears to have been a small bowel obstruction. NG tube was placed for decompression, patient was seen by gastroenterology. I looked at the colostomy that she carries from before this admission and this is still empty. Overnight they have emptied her canister several times. Patient felt better after NG tube was placed. Patient was seen and examined, her NG output improved comparing the previous 24 hours, she started having output from her ostomy, she underwent small bowel follow-through today the result will take several hours and it is pending. Input by general surgery was noted. Physical Exam Physical Exam: VITALS: Reviewed. WEIGHT/BMI reviewed. GEN: Healthy appearing, well-developed, NAD. CV: RRR, no m/r/g. LUNGS: CTAB, no w/r/c. ABD: Abdomen appears less distended, she started having some liquid stool in her ostomy bag : N/A SKIN: Warm, well perfused. No skin rashes or abnormal lesions. Results & Data Results & Data Vital Signs (Past 12 Hours) Vital Signs Temp Pulse Pulse Resp BP BP Pulse Ox 04/14/24 12:00 92 H 04/14/24 11:36 36.6 C 90 18 142/72 H 90 04/14/24 11:16 107 H 142/72 H 04/14/24 10:11 04/14/24 08:02 36.5 C 98 H 18 144/76 H 91 04/14/24 06:31 100 H 142/72 H 04/14/24 03:35 37.2 C 100 H 18 142/72 H 94 O2 Del Method O2 Flow Rate 04/14/24 12:00 04/14/24 11:36 Nasal Cannula 2 04/14/24 11:16 04/14/24 10:11 Nasal Cannula 3 04/14/24 08:02 Nasal Cannula 3 04/14/24 06:31 04/14/24 03:35 Nasal Cannula 3 Laboratory Results Laboratory Results - last 24 hr 04/13/24 04/14/24 04/14/24 17:15 00:05 06:33 WBC RBC Hgb Hct MCV MCH MCHC RDW Std Deviation RDW Coeff of Chelle Plt Count MPV Immature Gran % (Auto) Neut % (Auto) Lymph % (Auto) [place] % (Auto) Eos % (Auto) Baso % (Auto) Neut # (Auto) Lymph # (Auto) [place] # (Auto) Eos # (Auto) Baso # (Auto) Immature Gran # (Auto) Sodium Potassium Chloride Carbon Dioxide Anion Gap BUN Creatinine Est Cr Clr Drug Dosing eGFR BUN/Creatinine Ratio Glucose POC Glucose 95 78 74 Calcium 04/14/24 04/14/24 06:38 12:00 WBC 6.12 RBC 3.84 L Hgb 11.3 L Hct 34.7 L MCV 90.4 MCH 29.4 MCHC 32.6 RDW Std Deviation 45.0 RDW Coeff of Chelle 13.6 Plt Count 248 MPV 8.6 L Immature Gran % (Auto) 7.4 Neut % (Auto) 70.1 Lymph % (Auto) 9.2 [place] % (Auto) 11.4 Eos % (Auto) 1.1 Baso % (Auto) 0.8 Neut # (Auto) 4.29 Lymph # (Auto) 0.56 L [place] # (Auto) 0.70 H Eos # (Auto) 0.07 Baso # (Auto) 0.05 Immature Gran # (Auto) 0.45 H Sodium 138 Potassium 3.1 L Chloride 100 Carbon Dioxide 28 Anion Gap 10 BUN 16 Creatinine 1.01 Est Cr Clr Drug Dosing 53.4 eGFR 60.64 BUN/Creatinine Ratio 15.8 Glucose 78 POC Glucose 87 Calcium 8.6 Diagnostic Findings KUB X-Ray 04/13/24 12:22 XR KUB/Abdomen 1 view CLINICAL HISTORY: NGT placement TECHNIQUE: 1 view of the abdomen was obtained. Comparison: Comparison is made to abdomen radiograph 04/12/2024 FINDINGS: Enteric tube terminates in the stomach. Degenerative changes are seen in the visualized skeleton. Multiple dilated loops of small bowel are seen. A moderate amount of stool is noted within the large bowel. IMPRESSION: 1. Satisfactory position of enteric tube. 2. Unchanged small bowel obstruction. ACT 112: Negative or not required by law. Electronically signed by: Flip Malone M.D. 04/13/2024 1:04 PM Medications Administered Current Inpatient Medications Atorvastatin Calcium (Atorvastatin 20 Mg Tab) 20 mg PO HS [facility] Stop: 05/10/24 20:59 Last Admin: 04/13/24 20:37 Dose: Not Given Bupropion HCl (Bupropion Xl 300 Mg Tabcr) 300 mg PO QAM [facility] Stop: 05/10/24 08:59 Last Admin: 04/14/24 07:24 Dose: Not Given Dextrose (Dextrose 50% 50 Ml Syringe) 25 - 50 ml IV UD PRN; Protocol PRN Reason: Hypoglycemia Protocol Stop: 05/09/24 22:30 Duloxetine HCl (Duloxetine Hcl 60 Mg Cap) 60 mg PO QAM [facility] Stop: 05/10/24 08:59 Last Admin: 04/14/24 07:24 Dose: Not Given Fluticasone Furoate (Fluticasone Furoate 200mcg 14 Puffs/Inhaler) 1 puffs INH DAILY [facility] Stop: 05/10/24 08:59 Last Admin: 04/14/24 08:27 Dose: 1 puffs Fluticasone Propionate (Fluticasone Propionate Na Spr 16 Gm Btl) 2 sprays NA QAM PRN PRN Reason: Allergy Symptoms Stop: 05/09/24 22:29 Gabapentin (Gabapentin 300 Mg Cap) 300 mg PO TID [facility] Stop: 05/10/24 08:59 Last Admin: 04/14/24 07:24 Dose: Not Given Glucagon (Glucagon For Inj 1 Mg Vial) 1 mg SQ UD PRN; Protocol PRN Reason: Hypoglycemia Protocol Stop: 05/09/24 22:30 Glucose (Glucose 40% Gel 15 Gm Tube) 15 - 30 gm PO UD PRN; Protocol PRN Reason: Hypoglycemia Protocol Stop: 05/09/24 22:30 Glucose (Glucose 10 Tab/Tube) 4 - 8 tab PO UD PRN; Protocol PRN Reason: Hypoglycemia Protocol Stop: 05/09/24 22:30 Hydromorphone HCl (Hydromorphone Inj 0.5 Mg/0.5 Ml Syr) 1 mg IV Q3H PRN PRN Reason: Moderate Pain (Scale 4, 5, 6) Stop: 04/24/24 09:25 Last Admin: 04/14/24 09:58 Dose: 1 mg Promethazine HCl (Phenergan) 6.25 mg in 50.25 mls @ 201 mls/hr IV Q6H PRN PRN Reason: Nausea And Vomiting Stop: 05/09/24 20:26 Last Infusion: 04/13/24 09:42 Dose: Infused Pantoprazole Sodium (Protonix) 40 mg in 10 mls @ 5 mls/min IV BID [facility] Stop: 05/10/24 08:59 Last Admin: 04/14/24 08:27 Dose: 5 mls/min Ceftriaxone Sodium (Rocephin) 1,000 mg in 50 mls @ 100 mls/hr IV Q24H [facility] Stop: 04/15/24 13:59 Last Infusion: 04/13/24 13:56 Dose: Infused Insulin Aspart (Insulin Aspart Per Unit Charge) 0 units SC Q6 [facility] Stop: 05/09/24 22:34 Last Admin: 04/14/24 12:37 Dose: Not Given Lorazepam (Lorazepam 2 Mg/1 Ml Vial) 0.5 mg IV Q4H PRN PRN Reason: Anxiety/Agitation Stop: 05/09/24 20:27 Metoprolol Tartrate (Metoprolol Tartrate 1 Mg/Ml Vial) 5 mg IV Q6H [facility] Stop: 05/11/24 11:29 Last Admin: 04/14/24 11:16 Dose: 5 mg Miscellaneous (Order Awaiting Action: Ropinirole 6 Mg Tablet Extended Release 24 Hr) 1 each N/A QS [facility] Stop: 05/10/24 00:00 Last Admin: 04/14/24 07:23 Dose: Not Given Miscellaneous (Carbohydrates For Hypoglycemia ) 15 - 30 gm PO UD PRN PRN Reason: Hypoglycemia Protocol Stop: 05/09/24 22:30 Ondansetron HCl (Ondansetron Inj 2 Mg/Ml 2 Ml Vial) 4 mg IV Q6H PRN PRN Reason: Nausea And Vomiting Stop: 05/10/24 11:09 Last Admin: 04/14/24 06:32 Dose: 4 mg Phenol (Chloraseptic (Phenol) 1.4% Soln 180 Ml Btl) 2 sprays MT Q6H PRN PRN Reason: Sore Throat Stop: 05/10/24 10:55 Last Admin: 04/12/24 16:25 Dose: 2 sprays Tizanidine HCl (Tizanidine Hcl 4 Mg Tablet) 2 mg PO QID PRN PRN Reason: spasm Stop: 05/09/24 22:29 Last Admin: 04/12/24 08:26 Dose: 2 mg Trazodone HCl (Trazodone Hcl 50 Mg Tab) 50 mg PO HS [facility] Stop: 05/10/24 20:59 Last Admin: 04/13/24 20:38 Dose: Not Given Umeclidinium/Vilanterol (Umeclidinium/Vilanterol 62.5/25mcg 7 Puffs/Inhaler) 1 puffs INH DAILY [facility] Stop: 05/10/24 08:59 Last Admin: 04/14/24 08:27 Dose: 1 puffs (2) COPD (chronic obstructive pulmonary disease) COPD type: emphysema Emphysema type: other Qualified Code(s): J43.8 - Other emphysema
[2024-04-14] MEDS: POTASSIUM CHLORIDE / WTR 10 MEQ/100 ML PLCT IV SCH (13:02)
--- NOTE | 2024-04-14 14:35 | Fluoroscopy Report ---
SMALL BOWEL FOLLOW-THROUGH CLINICAL HISTORY: Small bowel obstruction, contrast via NGT COMPARISON STUDY: CT of the abdomen and pelvis April 09, 2024 and KUB April 13, 2024. PROCEDURE AND FINDINGS: Initially, a plan examiner KUB was obtained. Tip of nasogastric tube is within the [place] of the stomach. The gallbladder is surgically absent. Right lower quadrant ileostomy is noted. Num erous loops of moderately dilated small bowel are unchanged. 300 cc of Optiray 320 was diluted with 3 00 cc of water and administered via the nasogastric tube. Intermittent KUBs were then obtained. The mary rothman's nurse reported development of ostomy output at 5 hours. Although difficult to determine with certainty by radiography, this likely reflects oral contrast. No transition point was identified. IMPRESSION: Findings consistent with a persistent partial small bowel obstruction. Contrast likely reached the ostomy bag however was significantly delayed at 5 hours. ACT 112: Negative or not required by law. Electronically signed by: Nishant Kern M.D. 04/14/2024 2:34 PM
[2024-04-15 07:07] LABS: BUN Creatinine Ratio 21.1 (10-20); Calcium 9.3 mg/dl (8.6-10.3); Creatinine Clr Calc Pharmacy 49.5 ml/min; Potassium 3.1 mmol/L (3.5-5.1)
--- NOTE | 2024-04-15 12:39 | Hospitalist Progress Note ---
Date of Service April 15, 2024 Assessment & Plan (1) SBO (small bowel obstruction): Plan: This is multifactorial, most likely due to multiple surgeries that she has had in the past although I am concerned that she might have a dysfunctional ostomy, surgery to review this as well, patient continues to have bowel sounds , NG output is decreasing. Clinically seems better, her ostomy is producing more liquid stool, otherwise remained afebrile, per recommendation by surgery will start clear liquids and see how she tolerates. Small bowel follow-through study was reviewed. (2) COPD (chronic obstructive pulmonary disease): Plan: Clinically stable, continue with home oxygen, continue with Anoro Ellipta and Arnuity Ellipta. Monitor and treat as needed. (3) JOSEPHINE (acute kidney injury): Plan: This was present on admission,, creatinine was 1.4 which after hydration improved to 1.1. Remained stable. (4) Hypomagnesemia: Plan: Replaced and resolved, magnesium was 1.6, last measurement was 1.9. (5) Hypokalemia: Plan: Potassium was again 3.1 and will be replaced intravenously. Plan Continue with NG suctioning and monitor output, small bowel follow-through study was reviewed. Will gradually advance diet. Await further increase in ostomy output. Admission and Anticipated Discharge Date Admission Date: April 09, 2024 Subjective Patient is a unfortunate 68-year-old woman with history of hypertension, hype rlipidemia, COPD with chronic hypoxemic respiratory failure on home oxygen, diabetes mellitus type 2, chronic kidney disease, anal cancer status post chemoradiation and surgery status post colostomy, chronic pain who was admitted to the hospital with what appears to have been a small bowel obstruction. NG tube was placed for decompression, patient was seen by gastroenterology. I looked at the colostomy that she carries from before this admission and this is still empty. Overnight they have emptied her canister several times. Patient felt better after NG tube was placed. Patient was seen and examined, minimal NG output, patient tolerates p.o. intake better, seen by general surgery, at this point clear liquid will be continued, patient does have more output from her ostomy. Physical Exam Physical Exam: VITALS: Reviewed. WEIGHT/BMI reviewed. GEN: Healthy appearing, well-developed, NAD. CV: RRR, no m/r/g. LUNGS: CTAB, no w/r/c. ABD: Abdomen appears less distended, she started having some liquid stool in her ostomy bag : N/A SKIN: Warm, well perfused. No skin rashes or abnormal lesions. Results & Data Results & Data Vital Signs (Past 12 Hours) Vital Signs Temp Pulse Pulse Resp BP BP BP 04/15/24 11:43 36.7 C 102 H 16 134/72 04/15/24 11:08 04/15/24 07:58 36.5 C 97 H 18 137/76 04/15/24 07:45 127 H 04/15/24 06:29 99 H 154/73 H 04/15/24 04:08 36.5 C 99 H 20 154/73 H Pulse Ox O2 Del Method O2 Flow Rate 04/15/24 11:43 97 Nasal Cannula 2 04/15/24 11:08 Nasal Cannula 3 04/15/24 07:58 92 Nasal Cannula 2 04/15/24 07:45 04/15/24 06:29 04/15/24 04:08 94 Nasal Cannula 3 Laboratory Results Laboratory Results - last 24 hr 04/14/24 04/15/24 04/15/24 17:53 00:03 06:04 Sodium Potassium Chloride Carbon Dioxide Anion Gap BUN Creatinine Est Cr Clr Drug Dosing eGFR BUN/Creatinine Ratio Glucose POC Glucose 86 87 87 Calcium 04/15/24 04/15/24 06:19 12:04 Sodium 139 Potassium 3.1 L Chloride 97 L Carbon Dioxide 25 Anion Gap 17 H BUN 23 Creatinine 1.09 Est Cr Clr Drug Dosing 49.5 eGFR 55.34 BUN/Creatinine Ratio 21.1 H Glucose 95 POC Glucose 102 H Calcium 9.3 Diagnostic Findings Small Bowel X-Ray 04/14/24 09:00 SMALL BOWEL FOLLOW-THROUGH CLINICAL HISTORY: Small bowel obstruction, contrast via NGT COMPARISON STUDY: CT of the abdomen and pelvis April 09, 2024 and KUB April 13, 2024. PROCEDURE AND FINDINGS: Initially, a tangled yarn spool straightener KUB was obtained. Tip of nasogastric tube is within the body of the stomach. The gallbladder is surgically absent. Right lower quadrant ileostomy is noted. Numerous loops of moderately dilated small bowel are unchanged. 300 cc of Optiray 320 was diluted with 300 cc of water and administered via the nasogastric tube. Intermittent KUBs were then obtained. The patient's nurse reported development of ostomy output at 5 hours. Although difficult to determine with certainty by radiography, this likely reflects oral contrast. No transition point was identified. IMPRESSION: Findings consistent with a persistent partial small bowel obstruction. Contrast likely reached the ostomy bag however was significantly delayed at 5 hours. ACT 112: Negative or not required by law. Electronically signed by: Nishant Kern M.D. 04/14/2024 2:34 PM Medications Administered Current Inpatient Medications Atorvastatin Calcium (Atorvastatin 20 Mg Tab) 20 mg PO HS [facility] Stop: 05/10/24 20:59 Last Admin: 04/14/24 19:51 Dose: Not Given Bupropion HCl (Bupropion Xl 300 Mg Tabcr) 300 mg PO QAM [facility] Stop: 05/10/24 08:59 Last Admin: 04/15/24 09:15 Dose: Not Given Dextrose (Dextrose 50% 50 Ml Syringe) 25 - 50 ml IV UD PRN; Protocol PRN Reason: Hypoglycemia Protocol Stop: 05/09/24 22:30 Duloxetine HCl (Duloxetine Hcl 60 Mg Cap) 60 mg PO QAM [facility] Stop: 05/10/24 08:59 Last Admin: 04/15/24 09:15 Dose: Not Given Fluticasone Furoate (Fluticasone Furoate 200mcg 14 Puffs/Inhaler) 1 puffs INH DAILY [facility] Stop: 05/10/24 08:59 Last Admin: 04/15/24 09:07 Dose: 1 puffs Fluticasone Propionate (Fluticasone Propionate Na Spr 16 Gm Btl) 2 sprays NA QAM PRN PRN Reason: Allergy Symptoms Stop: 05/09/24 22:29 Gabapentin (Gabapentin 300 Mg Cap) 300 mg PO TID [facility] Stop: 05/10/24 08:59 Last Admin: 04/15/24 09:15 Dose: Not Given Glucagon (Glucagon For Inj 1 Mg Vial) 1 mg SQ UD PRN; Protocol PRN Reason: Hypoglycemia Protocol Stop: 05/09/24 22:30 Glucose (Glucose 40% Gel 15 Gm Tube) 15 - 30 gm PO UD PRN; Protocol PRN Reason: Hypoglycemia Protocol Stop: 05/09/24 22:30 Glucose (Glucose 10 Tab/Tube) 4 - 8 tab PO UD PRN; Protocol PRN Reason: Hypoglycemia Protocol Stop: 05/09/24 22:30 Hydromorphone HCl (Hydromorphone Inj 0.5 Mg/0.5 Ml Syr) 1 mg IV Q3H PRN PRN Reason: Moderate Pain (Scale 4, 5, 6) Stop: 04/24/24 09:25 Last Admin: 04/15/24 10:41 Dose: 1 mg Promethazine HCl (Phenergan) 6.25 mg in 50.25 mls @ 201 mls/hr IV Q6H PRN PRN Reason: Nausea And Vomiting Stop: 05/09/24 20:26 Last Infusion: 04/13/24 09:42 Dose: Infused Pantoprazole Sodium (Protonix) 40 mg in 10 mls @ 5 mls/min IV BID [facility] Stop: 05/10/24 08:59 Last Admin: 04/15/24 09:07 Dose: 5 mls/min Ceftriaxone Sodium (Rocephin) 1,000 mg in 50 mls @ 100 mls/hr IV Q24H [facility] Stop: 04/15/24 13:59 Last Infusion: 04/14/24 17:37 Dose: Infused Insulin Aspart (Insulin Aspart Per Unit Charge) 0 units SC Q6 [facility] Stop: 05/09/24 22:34 Last Admin: 04/15/24 06:05 Dose: Not Given Lorazepam (Lorazepam 2 Mg/1 Ml Vial) 0.5 mg IV Q4H PRN PRN Reason: Anxiety/Agitation Stop: 05/09/24 20:27 Metoprolol Tartrate (Metoprolol Tartrate 1 Mg/Ml Vial) 5 mg IV Q6H [facility] Stop: 05/11/24 11:29 Last Admin: 04/15/24 06:29 Dose: 5 mg Miscellaneous (Order Awaiting Action: Ropinirole 6 Mg Tablet Extended Release 24 Hr) 1 each N/A QS [facility] Stop: 05/10/24 00:00 Last Admin: 04/15/24 08:58 Dose: Not Given Miscellaneous (Carbohydrates For Hypoglycemia ) 15 - 30 gm PO UD PRN PRN Reason: Hypoglycemia Protocol Stop: 05/09/24 22:30 Ondansetron HCl (Ondansetron Inj 2 Mg/Ml 2 Ml Vial) 4 mg IV Q6H PRN PRN Reason: Nausea And Vomiting Stop: 05/10/24 11:09 Last Admin: 04/15/24 03:31 Dose: 4 mg Phenol (Chloraseptic (Phenol) 1.4% Soln 180 Ml Btl) 2 sprays MT Q6H PRN PRN Reason: Sore Throat Stop: 05/10/24 10:55 Last Admin: 04/12/24 16:25 Dose: 2 sprays Tizanidine HCl (Tizanidine Hcl 4 Mg Tablet) 2 mg PO QID PRN PRN Reason: spasm Stop: 05/09/24 22:29 Last Admin: 04/12/24 08:26 Dose: 2 mg Trazodone HCl (Trazodone Hcl 50 Mg Tab) 50 mg PO HS [facility] Stop: 05/10/24 20:59 Last Admin: 04/14/24 19:51 Dose: Not Given Umeclidinium/Vilanterol (Umeclidinium/Vilanterol 62.5/25mcg 7 Puffs/Inhaler) 1 puffs INH DAILY [facility] Stop: 05/10/24 08:59 Last Admin: 04/15/24 09:07 Dose: 1 puffs (2) COPD (chronic obstructive pulmonary disease) COPD type: emphysema Emphysema type: other Qualified Code(s): J43.8 - Other emphysema
[2024-04-15] MEDS: POTASSIUM CHLORIDE / WTR 10 MEQ/100 ML PLCT IV SCH ×2 (12:56→23:29)
--- NOTE | 2024-04-15 13:08 | Surgery Progress Note ---
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 Afebrile o/n, with ongoing mild tachycardia. Today she states she feels much better with ostomy output and wants to eat and go home. SBFT performed yesterday shows delayed contrast to the ostomy after 5 hours suggesting persistent partial SBO. Persistent hypokalemia was repleted by her medical team this am. Will ok the patient to try clear liquids with the NGT clamped. Encourage ambulation. Will follow up in the am. Admission and Anticipated Discharge Date Admission Date: April 09, 2024 Subjective Upon my evaluation today the patient is sitting up in the chair very dynamic and enthusiastic to go home. Patient states she feels good, denies nausea vomiting and current abdominal pain. Of note patient does admit she received pain medication earlier this a.m. Patient states her ostomy began functioning yesterday and has continued to function since containing liquid stool and flatus in the bag. Physical Exam Constitutional: + obese; not in distress and not diaphor etic Respiratory: normal respiratory effort; no respiratory distress, no labored breathing and does not use accessory muscles Gastrointestinal (Abdomen): Stoma healthy, prolapsed. There is liquid to soft stool in the bag. NGT present with scant drainage. Results & Data Vital Signs (Past 12 Hours) Vital Signs Temp Pulse Pulse Resp BP BP BP 04/15/24 11:43 36.7 C 102 H 16 134/72 04/15/24 11:08 04/15/24 07:58 36.5 C 97 H 18 137/76 04/15/24 07:45 127 H 04/15/24 06:29 99 H 154/73 H 04/15/24 04:08 36.5 C 99 H 20 154/73 H Pulse Ox O2 Del Method O2 Flow Rate 04/15/24 11:43 97 Nasal Cannula 2 04/15/24 11:08 Nasal Cannula 3 04/15/24 07:58 92 Nasal Cannula 2 04/15/24 07:45 04/15/24 06:29 04/15/24 04:08 94 Nasal Cannula 3 PG Care Time/CCT Total # of Minutes Spent Total Time Spent with Patient: Total time spent is greater than 50% in coordination of care (as documented) at patient's floor/unit and/or counseling patient: Coding Level of Care Code 55967 SUB INP/OBS CARE 05/06MIN Diagnoses SBO (small bowel obstruction) K56.609
[2024-04-15] MEDS ORDERED: Nursing to Pharmacy Communication SCH (14:30)
[2024-04-15] MEDS ORDERED: INSULIN ASPART PER UNIT CHARGE SC SCH (16:30)
--- NOTE | 2024-04-16 05:39 | Surgery Progress Note ---
<Statement entered by Javi Holland, - 04/16/24 12:30> I have seen this patient this am. She has continued to tolerate clears and states she will be getting a full liquid diet for lunch and will likely be discharged later today. Her ostomy continues to function and the patient denies any N/V. Her diet may be advanced as tolerated and d/c per medicine. Please consult surgery if any further needs. Date of Service April 16, 2024 Assessment & Plan (1) SBO (small bowel obstruction): Plan: The patient has been admitted on the hospitalist service. From surgery perspective we recommend the following: Continue clear liquid for the present time As patient is tolerating clear liquids with NG tube clinic consideration may be given to removing this modality later today Encourage ambulation Check a.m. labs when available Admission and Anticipated Discharge Date Admission Date: April 09, 2024 Subjective Patient is currently sitting at bedside and appears comfortable. She denies any nausea or vomiting. She denies any abdominal pain. She notes that she has had stool output from her ostomy. She notes she is tolerating clear liquids with her NG tube clamped without any exacerbation of any adverse symptoms Physical Exam 2 Gastrointestinal (Abdomen): Abdomen is soft and nondistended. There is no pain with palpation. Patient's ostomy appears pink and viable and has some stool in the collection bag. Results & Data Vital Signs (Past 12 Hours) Vital Signs Temp Pulse Pulse Resp BP Pulse Ox O2 Del Method 04/16/24 04:17 37.0 C 93 H 20 128/76 92 Nasal Cannula 04/15/24 23:45 36.8 C 70 20 131/68 95 Nasal Cannula 04/15/24 22:52 93 H 04/15/24 22:14 Nasal Cannula 04/15/24 19:54 36.8 C 103 H 20 141/66 H 92 Nasal Cannula O2 Flow Rate 04/16/24 04:17 3 04/15/24 23:45 3 04/15/24 22:52 04/15/24 22:14 04/15/24 19:54 3 PG Care Time/CCT Total # of Minutes Spent Total Time Spent with Patient: Total time spent is greater than 50% in coordination of care (as documented) at patient's floor/unit and/or counseling patient: Coding Level of Care Code 71922 SUB INP/OBS CARE 05/06MIN Diagnoses SBO (small bowel obstruction) K56.129
[2024-04-16 06:37] LABS: BUN Creatinine Ratio 19.4 (10-20); Calcium 8.9 mg/dl (8.6-10.3); Creatinine Clr Calc Pharmacy 54.7 ml/min; Potassium 3.2 mmol/L (3.5-5.1)
[2024-04-16 07:48] VITALS: RESP 18
[2024-04-16] MEDS: PROPRANOLOL HCL 20 MG TAB PO SCH (08:34)
--- NOTE | 2024-04-16 09:53 | XRay Report ---
KUB CLINICAL HISTORY: SBO COMPARISON STUDY: CT of the abdomen and pelvis April 09, 2024. KUB April 13, 2024. Small bowel f ollow-through April 14, 2024. FINDINGS: Cholecystectomy clips are noted. Multiple loops of moderately dilated small bowel bile pers ist. A small amount of residual oral contrast within the distal small bowel from small bowel follow-t hrough is noted. There is also contrast within the ileostomy bag. IMPRESSION: Findings consistent with a persistent partial small bowel obstruction. No significant ch javan in small bowel dilatation. Small amount of residual oral contrast within the distal small bowel as well as contrast within the ileostomy bag. ACT 112: Negative or not required by law. Electronically signed by: Nishant Kern M.D. 04/16/2024 9:51 AM
[2024-04-16 11:20] VITALS: PULSE 82; TEMP 97.9; O2SAT 98
[2024-04-16] MEDS: POTASSIUM CHLORIDE CRTAB 20 MEQ TABCR PO SCH (14:23)
--- NOTE | 2024-04-16 14:38 | Discharge Summary ---
Discharge Summary Date of Service April 16, 2024 Principal Dx & Hospital Course #1 = Principal Diagnosis (1) SBO (small bowel obstruction): (2) COPD (chronic obstructive pulmonary disease): (3) JOSEPHINE (acute kidney injury): (4) Hypomagnesemia: (5) Hypokalemia: Notes For Next Care Provider Medication Changes From Visit No further medical recommendation Admission HPI Per Admitting Provider History obtained from patient and records. Patient is a unfortunate 68-year-old woman with history of hypertension, hyperlipidemia, COPD with chronic hypoxemic respiratory failure on home oxygen, diabetes mellitus type 2, chronic kidney disease, anal cancer status post chemoradiation and surgery status post colostomy, chronic pain who was admitted to the hospital with what appears to have been a small bowel obstruction. NG tube was placed for decompression, patient was seen by gastroenterology. I looked at the colostomy that she carries from before this admission and this is still empty. Overnight they have emptied her canister several times. Patient felt better after NG tube was placed. Patient did well for initial several days, we had ongoing NG aspirate, it took several days but eventually bowel sounds returned and patient started having some output from ostomy since it 48 hours ago, NG output did minimize, last night NG tube was clamped and patient was placed on clear liquid diet which she tolerated well, her output from ostomy showed even further increase today, NG tube was removed and patient was given full liquid diet which she tolerated well. Discussed with general surgery, will discharge patient home with follow-up as outpatient, she is to remain on mechanical soft diet for several days prior to transitioning to regular diet. May resume prior medications. Updated Medication List Medication Instructions Recorded Confirmed Type aspirin 81 mg tablet,delayed 81 mg PO QAM 02/26/19 04/09/24 History release atorvastatin 20 mg tablet 20 mg PO HS 02/26/19 04/09/24 History fluticasone propionate 50 2 spray intranasal QAM PRN Allergy 02/26/19 04/09/24 History mcg/actuation nasal Symptoms spray,suspension metformin 1,000 mg tablet 1,000 mg PO BIDM 02/26/19 04/09/24 History trazodone 50 mg tablet 50 mg PO HS 02/26/19 04/09/24 History albuterol sulfate 90 mcg/actuation 2 puff inhalation Q4H PRN 03/31/19 04/09/24 History aerosol inhaler Shortness Of Breath Or Wheezing ondansetron HCl 8 mg tablet 8 mg PO Q8H PRN Nausea 05/29/20 04/09/24 History prochlorperazine maleate 10 mg 10 mg PO Q6H PRN Constipation 05/29/20 04/09/24 History tablet (Compazine) fluticasone fur. 200 mcg-umeclid 1 inh inhalation DAILY 03/02/22 04/09/24 History 62.5 mcg-vilant 25 mcg inhalat.powder (Trelegy Ellipta) propranolol 20 mg tablet 20 mg PO AMHS 03/02/22 04/09/24 History furosemide 40 mg tablet 40 mg PO DAILY PRN Edema 03/26/22 04/09/24 History alendronate 70 mg tablet 70 mg PO WK 12/24/23 04/09/24 History bupropion HCl 300 mg 24 hr tablet, 300 mg PO QAM 12/24/23 04/09/24 History extended release gabapentin 300 mg capsule 300 mg PO TID 12/24/23 04/09/24 History nystatin 100,000 unit/gram topical 1 applic topical TID 12/24/23 04/09/24 History powder (Klayesta) ropinirole 6 mg tablet,extended 6 mg PO HS 12/24/23 04/09/24 History release 24 hr magnesium 200 mg tablet 200 mg PO DAILY #14 tabs 12/26/23 04/09/24 Rx pantoprazole 40 mg tablet,delayed 40 mg PO BID #60 tabs 12/26/23 04/09/24 Rx release (Protonix) hydromorphone 4 mg tablet 4 mg PO Q4H PRN Pain 03/02/24 04/09/24 History (Dilaudid) duloxetine 30 mg capsule,delayed 60 mg PO QAM 04/09/24 04/09/24 History release tizanidine 2 mg tablet 2 mg PO QID PRN Pain 04/09/24 04/09/24 History Hospital Stay Data Consultations 04/09/24 19:19 Consult General Surgery Routine 04/09/24 19:20 ED Decision to Admit Stat Diagnostic Imagining Performed 04/09/24 16:53 CT Abd and Pelvis [CT abd pelvis IV con only] Stat 04/14/24 09:00 FL small bowel follow through Routine Pending Results Patient Have Any Pending Studies at Discharge: No Discharge Instructions Given to Patient (Per Discharging Provider) May try mechanical soft diet for several days prior to switching to regular diet Total Time Total Time Spent Total Time Spent (In Minutes): More than 30-minute
[2024-04-16 14:54] VITALS: BP 128/76
== END 2024-04-16 16:01 | disposition home or self-care (01) | DRG 389 ==
LOC: ED 15:52 → SUATTDRO 21:45 → EDINP 21:45 → 2N 04-10 00:10

== ENCOUNTER 2024-12-21 15:01 | Inpatient (IN) ==
--- NOTE | 2024-12-21 15:22 | Emergency Department Note ---
Impression & Plan Acute hyponatremia, Chronic hypoxemic respiratory failure, Hypokalemia ED Provider Note NAME: JOHNATHAN MISHRA AGE: 69 SEX: F : 1955 ARRIVES VIA: Walk-In INFORMANT: Patient, ED PROVIDER(S): Warren Mac MD CHIEF COMPLAINT: Abnormal outpatient blood work MEDICAL DECISION MAKING: Patient presents due to concern for elevated white count abnormal kidney function hyponatremia. IV was established and blood work was obtained along with a chest x-ray. Patient's blood work shows a white count of 11 with a hemoglobin of 9.4. The patient's platelet count is unremarkable. Kidney function with a creat of 1.74. Baseline is around 1. Patient did receive IV fluids. Patient's potassium of 2.6. Sodium of 121. Urine and serum osmolality ordered along with urine electrolytes. Given the patient's acute hyponatremia I did speak with the on- call hospitalist service. Chest x-ray does show concern for left lower lobe pneumonia. Antibiotic treatment deferred to inpatient team. Discussion w/ other healthcare providers: Dr. Roberts inpatient medicine service Prior /Outside records reviewed: None Differential diagnosis: Diagnostics, as interpreted by me: ECG: None Cardiac monitoring: An order was placed for continuous cardiac monitoring. The monitor shows a rate of 85 with sinus rhythm. Patient was placed on pulse oximetry Medical decision rules: None Imaging studies: See below HPI: Patient presents due to concern for abnormal outpatient blood work. Patient reports that she had an elevated white count abnormal kidney function and low sodium. Patient is unsure as to the exact values. Patient does have a known history of lung cancer and does follow with Dr. Pagan. She states that these lab values were obtained for routine blood work as the patient was post to have her second chemo treatment tomorrow. Patient denies any prior history of radiation or surgery. Former smoker he is on 3 L at all times. Patient denies any chest pains. Patient does have chronic shortness of breath but unchanged. PAST MEDICAL HISTORY: See Below PAST SURGICAL HISTORY: See Below SOCIAL HISTORY: See Below HOME MEDICATIONS: See Below ALLERGIES: See Below VITALS: See Below PHYSICAL EXAMINATION: GENERAL: NAD, non-toxic. EYE EXAM: Normal conjunctiva. PERRL, no anisocoria and EOM's grossly intact w/o pain. OROPHARYNX: Moist mucus membranes, grossly normal dentition. NECK: Trachea midline, no stridor. Supple, no nuchal rigidity, no adenopathy, non-tender. No signs of meningismus. FROM of the neck with good chin to chest and neck extension. LUNGS: Clear to auscultation. Normal chest wall mechanics. HEART: NSR, no MRG. ABDOMEN: Abdomen soft, non-tender, no masses, no rebound or guarding. BACK: No CVA TTP. SKIN: No rashes and no bruising. UPPER EXTREMITIES: Upper extremities are grossly normal. LOWER EXTREMITIES: Grossly normal, no edema. NEURO EXAM: Awake and alert, follows commands, no obvious facial asymmetry, normal speech, moves all 4 extremities. Past Med/Surg History Problem List (Updated 12/22/24 @ 00:10 by Warren Mac MD) Chronic hypoxemic respiratory failure (Acute) Acute hyponatremia (Acute) Multiple pulmonary nodules determined by computed tomography of lung Malignant neoplasm of upper lobe, left bronchus or lung Hypokalemia (Acute) 04/2024 Hypomagnesemia 04/2024 JOSEPHINE (acute kidney injury) 04/2024 2/2 SBO Nausea & vomiting (Acute) Right sided abdominal pain (Acute) SBO (small bowel obstruction) (Acute) 03/2024 Elevated troponin I level GI bleed Acute hyponatremia (Acute) 12/2023 Acute GI bleeding (Acute) 12/2023 Acute exacerbation of chronic obstructive pulmonary disease (Acute) 08/2023 Acute respiratory failure with hypoxia and hypercarbia (Acute) duplicafe Lactic acidosis 08/2023 Hypotension 08/2023 Acute hypoxic respiratory failure 3L O2 PRN Primary cancer of left upper lobe of lung (Chronic 11/26/22) Tachycardia 02/2022 Hyponatremia chronic Ileostomy present Hypoxia on home O2; 3L PRN Essential tremor DVT prophylaxis Chronic back pain HLD (hyperlipidemia) DM type 2 (diabetes mellitus, type 2) Parastomal hernia with obstruction and without gangrene (Acute) COPD (chronic obstructive pulmonary disease) Fibromyalgia 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) Medical History History of ectopic Hyponatremia chronic hyponatremia; PCP and cardio monitoring (HFpEF) heart failure with preserved ejection fraction HTN (hypertension) CKD (chronic kidney disease), stage III Cigarette smoker pt continues to smoke Hyperlipidemia Fibromyalgia Lung cancer hx L sided lesions, s/p XRT; now with R lesions on imaging On home O2 uses 3L O2 PRN (usually wears every night) Ileostomy present hx of anal ca Essential tremor Primary cancer of left upper lobe of lung dx 01/2023; tx with 5 XRT Chronic pain DMII (diabetes mellitus, type 2) COPD (chronic obstructive pulmonary disease) uses 3L O2 PRN (usually wears every night) Insomnia GERD (gastroesophageal reflux disease) DJD (degenerative joint disease) Diabetic neuropathy Bilateral hands and feet Squamous cell carcinoma of anal canal Diagnosed 05/05/2019. Invasive, moderately differentiated, P-16 positive, Positive margin. s/p ileostomy, completed mitomycin x1 dose on 06/14/2019 and Xeloda along with radiation treatment between 06/09/2019-07/28/2019 Breast infection in female Hx of chronic left breast infections for 20 years; no current issues per pt Heart murmur per 12/2023 ECHO: mild aortic sclerosis without aortic stenosis. mild TR. Degenerative disc disease History of hemorrhoids Low back pain with right-sided sciatica multiple pain management injections with Dr. Acrher Hip pain, chronic right Surgical History Hx of foot surgery left History of ankle surgery left History of carpal tunnel surgery History of tubal ligation History of hand surgery middle finger "knuckle" surgery History of tooth extraction Hx of cataract extraction right/left Hx of ileostomy 2020 S/P trigger finger release Status post trigger finger release History of shoulder surgery right 2009, ;left-2012. History of hernia repair History of breast surgery nipple areola reconstruction, s/p multiple infections History of neck surgery excision of lipoma-08/23/17 History of cholecystectomy 08/17/16 History of arthroscopy of right knee History of arthroplasty of left knee History of rectal abscess with I &D 05/05/19 History of colonoscopy 2010, 2016 History of breast biopsy 1994, 2001 History of hysterectomy age 37 History of hemorrhoidectomy 02/17/19 Family History Grandmother (Maternal) , in 60's Lung cancer Brother No problems noted. Sister No problems noted. Daughter No problems noted. Son No problems noted. 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 Beliefs That Will Affect Care: None marital status: Current Living Situation: Significant Other Current Living Situation Comment: boyfriend current occupational status: disabled current occupation: last worked in [employer] as [employer] in march Feels Safe at Home: Yes Childhood Exposure to Second-Hand Smoke: Yes caffeine: Yes (mountain dew daily 2 liters a day) Dental Care, Regularly: No Assistive Devices: None Allergies Allergies Allergy/AdvReac Type Severity Reaction Status Date / Time adhesive AdvReac Intermediate ITCHY RASH Verified 12/21/24 16:48 Home Meds Home Medications Medication Instructions Recorded Confirmed aspirin 81 mg tablet,delayed 81 mg PO QAM 02/26/19 12/21/24 release atorvastatin 20 mg tablet 20 mg PO DAILY 02/26/19 12/21/24 fluticasone propionate 50 2 spray intranasal QAM PRN Allergy 02/26/19 12/21/24 mcg/actuation nasal Symptoms spray,suspension (Flonase Allergy Relief) metformin 1,000 mg tablet 1,000 mg PO BIDM 02/26/19 12/21/24 trazodone 50 mg tablet 50 mg PO HS 02/26/19 12/21/24 albuterol sulfate 90 mcg/actuation 2 puff inhalation Q4H PRN 03/31/19 12/21/24 aerosol inhaler Shortness Of Breath Or Wheezing ondansetron HCl 8 mg tablet 8 mg PO Q8H PRN Nausea 05/29/20 12/21/24 fluticasone fur. 200 mcg-umeclid 1 inh inhalation DAILY 03/02/22 12/21/24 62.5 mcg-vilant 25 mcg inhalat.powder (Trelegy Ellipta) propranolol 20 mg tablet 20 mg PO AMHS 03/02/22 12/21/24 furosemide 40 mg tablet (Lasix) 40 mg PO DAILY PRN Edema 03/26/22 12/21/24 bupropion HCl 300 mg 24 hr tablet, 300 mg PO QAM 12/24/23 12/21/24 extended release (Wellbutrin XL) gabapentin 300 mg capsule 300 mg PO TID 12/24/23 12/21/24 nystatin 100,000 unit/gram topical 1 applic topical TID PRN as needed 12/24/23 12/21/24 powder (Klayesta) tizanidine 2 mg tablet 2 mg PO Q6H PRN Pain 04/09/24 12/21/24 magnesium 200 mg tablet 200 mg PO QAM 05/16/24 12/21/24 cyanocobalamin (vitamin B-12) 1,000 mcg PO QAM 09/07/24 12/21/24 1,000 mcg tablet (Vitamin B-12) oxycodone 10 mg tablet 10 mg PO Q4H PRN Severe Pain 09/07/24 12/21/24 (Scale Score 7-10) pramipexole 1 mg tablet 1 mg PO TID 09/07/24 12/21/24 albuterol sulfate 0.63 mg/3 mL 0.63 mg inhalation Q6H PRN Wheezing 10/24/24 12/21/24 solution for nebulization dexamethasone 4 mg tablet 4 mg PO DIRECTED PRN PRIOR TO 12/21/24 12/21/24 CHEMO folic acid 1 mg tablet 1 mg PO DAILY 12/21/24 12/21/24 morphine 15 mg tablet,extended 15 mg PO BID 12/21/24 12/21/24 release pantoprazole 40 mg tablet,delayed 40 mg PO DAILY PRN Heartburn 12/21/24 12/21/24 release prochlorperazine maleate 10 mg 10 mg PO Q6H PRN NAUSEA/VOMITING 12/21/24 12/21/24 tablet valacyclovir 1 gram tablet 2,000 mg PO BID PRN COLD SORES 12/21/24 12/21/24 (Valtrex) NEEDED Results & Data (ED) Vital Signs Vital Signs - 24 hr 12/21/24 15:03 12/21/24 15:31 12/21/24 15:32 Pulse Rate 97 H 83 Pulse Rate [Apical] Pulse Rate from SpO2 Sensor Pulse Rhythm [Apical] Pulse Strength [Apical] Respiratory Rate 14 Respiratory Effort / Characteristics Non-Labored Respiratory Depth Normal Respiratory Pattern Blood Pressure 113/50 L Blood Pressure [Right Arm] Blood Pressure Mean 71 Blood Pressure Mean [Right Arm] Pulse Oximetry 93 93 Oxygen Delivery Method Nasal Cannula Nasal Cannula Oxygen Flow Rate 3 3 Sepsis Recent Fever Within 48 Hours No Sepsis New/Unexplained Change in Mental Status N/A Sepsis Action Taken by Nursing No Action Required 12/21/24 15:33 12/21/24 15:33 12/21/24 15:33 Pulse Rate Pulse Rate [Apical] Pulse Rate from SpO2 Sensor Pulse Rhythm [Apical] Pulse Strength [Apical] Respiratory Rate Respiratory Effort / Characteristics Respiratory Depth Respiratory Pattern Blood Pressure 97/61 L 97/61 L 97/61 L Blood Pressure [Right Arm] Blood Pressure Mean 72 72 72 Blood Pressure Mean [Right Arm] Pulse Oximetry Oxygen Delivery Method Oxygen Flow Rate Sepsis Recent Fever Within 48 Hours Sepsis New/Unexplained Change in Mental Status Sepsis Action Taken by Nursing 12/21/24 15:33 12/21/24 15:57 12/21/24 16:00 Pulse Rate 80 76 Pulse Rate [Apical] Pulse Rate from SpO2 Sensor 79 77 Pulse Rhythm [Apical] Pulse Strength [Apical] Respiratory Rate 8 L 12 Respiratory Effort / Characteristics Respiratory Depth Respiratory Pattern Blood Pressure 105/61 Blood Pressure [Right Arm] Blood Pressure Mean 79 Blood Pressure Mean [Right Arm] Pulse Oximetry 94 94 Oxygen Delivery Method Oxygen Flow Rate Sepsis Recent Fever Within 48 Hours Sepsis New/Unexplained Change in Mental Status Sepsis Action Taken by Nursing 12/21/24 16:21 12/21/24 16:39 12/21/24 16:42 Pulse Rate 79 73 77 Pulse Rate [Apical] Pulse Rate from SpO2 Sensor 79 74 77 Pulse Rhythm [Apical] Pulse Strength [Apical] Respiratory Rate 14 15 15 Respiratory Effort / Characteristics Respiratory Depth Respiratory Pattern Blood Pressure Blood Pressure [Right Arm] Blood Pressure Mean Blood Pressure Mean [Right Arm] Pulse Oximetry 94 97 95 Oxygen Delivery Method Oxygen Flow Rate Sepsis Recent Fever Within 48 Hours Sepsis New/Unexplained Change in Mental Status Sepsis Action Taken by Nursing 12/21/24 17:00 12/21/24 17:00 12/21/24 17:02 Pulse Rate Pulse Rate [Apical] 76 Pulse Rate from SpO2 Sensor Pulse Rhythm [Apical] Regular Pulse Strength [Apical] Normal Respiratory Rate 14 Respiratory Effort / Characteristics Non-Labored Spontaneous Respiratory Depth Normal Respiratory Pattern Regular Blood Pressure 113/67 113/67 Blood Pressure [Right Arm] 130/63 Blood Pressure Mean 88 88 Blood Pressure Mean [Right Arm] 85 Pulse Oximetry 98 Oxygen Delivery Method Nasal Cannula Oxygen Flow Rate 3 Sepsis Recent Fever Within 48 Hours Sepsis New/Unexplained Change in Mental Status Sepsis Action Taken by Nursing 12/21/24 17:03 12/21/24 17:12 12/21/24 17:32 Pulse Rate 73 77 Pulse Rate [Apical] Pulse Rate from SpO2 Sensor 75 76 Pulse Rhythm [Apical] Pulse Strength [Apical] Respiratory Rate 12 18 Respiratory Effort / Characteristics Respiratory Depth Respiratory Pattern Blood Pressure 130/63 Blood Pressure [Right Arm] Blood Pressure Mean 77 Blood Pressure Mean [Right Arm] Pulse Oximetry 97 95 Oxygen Delivery Method Oxygen Flow Rate Sepsis Recent Fever Within 48 Hours Sepsis New/Unexplained Change in Mental Status Sepsis Action Taken by Nursing 12/21/24 17:32 Pulse Rate Pulse Rate [Apical] Pulse Rate from SpO2 Sensor Pulse Rhythm [Apical] Pulse Strength [Apical] Respiratory Rate Respiratory Effort / Characteristics Respiratory Depth Respiratory Pattern Blood Pressure 130/63 Blood Pressure [Right Arm] Blood Pressure Mean 77 Blood Pressure Mean [Right Arm] Pulse Oximetry Oxygen Delivery Method Oxygen Flow Rate Sepsis Recent Fever Within 48 Hours Sepsis New/Unexplained Change in Mental Status Sepsis Action Taken by Snf Medications Current Medication List: was personally reviewed by me Laboratory Data Attestation: I reviewed the patient's lab results. 12/21/24 15:22 12/21/24 22:41 Lab Results 12/21/24 Range/Units 15:22 WBC 11.48 H (4.8-10.8) K/ul RBC 3.03 L (4.20-5.40) M/uL Hgb 9.4 L (12.0-16.0) g/dl Hct 25.2 L (37.0-47.0) % MCV 83.2 (80.0-100.0) fL MCH 31.0 (25.0-34.0) pg MCHC 37.3 H (32.0-36.0) g/dL RDW Std Deviation 38.5 (36.4-46.3) fL RDW Coeff of Chelle 13.2 (11.5-14.5) % Plt Count 346 (130-400) K/uL MPV 8.6 L (9.4-12.4) fL Immature Gran % (Auto) 7.1 % Neut % (Auto) 80.1 % Lymph % (Auto) 5.4 % Fisher % (Auto) 7.1 % Eos % (Auto) 0.0 % Baso % (Auto) 0.3 % Neut # (Auto) 9.19 H (1.40-6.50) K/uL Lymph # (Auto) 0.62 L (1.20-3.40) K/uL Fisher # (Auto) 0.82 H (0.11-0.59) K/uL Eos # (Auto) 0.00 (0.00-0.50) K/uL Baso # (Auto) 0.04 (0.00-0.20) K/uL Immature Gran # (Auto) 0.81 H (0.01-0.20) K/uL Polychromasia 1+ Basophilic Stippling 1+ Sodium 121 L (136-145) mmol/L Potassium 2.6 L (3.5-5.1) mmol/L Chloride 79 L (98-107) mmol/L Carbon Dioxide 32 (21-32) mmol/L Anion Gap 10 (3-11) BUN 30 H (6-23) mg/dl Creatinine 1.74 H (0.6-1.2) mg/dl Est Cr Clr Drug Dosing 25.2 ml/min eGFR 31.37 BUN/Creatinine Ratio 17.2 (10-20) Glucose 246 H (70-99(Fasting)) mg/dl Osmolality 265 L (280-300) mOsm/kg Calcium 8.9 (8.6-10.3) mg/dl Magnesium 2.0 (1.7-2.4) mg/dl Total Bilirubin 0.3 (0.2-1.0) mg/dl AST 13 (13-39) U/L ALT 15 (7-52) U/L Alkaline Phosphatase 70 (34-104) U/L Troponin I High Sens 10.3 (0-14) pg/ml Total Protein 6.7 (6.0-8.3) gm/dl Albumin 3.4 (3.4-5.0) gm/dl Globulin 3.3 (2.5-4.0) gm/dl Albumin/Globulin Ratio 1.0 (0.9-2) Lipase 15 (11-82) U/L Administered Medications Gabapentin (Gabapentin 300 Mg Cap) 300 mg PO TID HANNAH Stop: 01/20/25 20:59 Last Admin: 12/21/24 21:32 Dose: 300 mg Documented By: ANGELES Sodium Chloride (Nss) 1,000 mls @ 80 mls/hr IV .[id number] HANNAH Stop: 12/24/24 17:44 Last Admin: 12/21/24 17:54 Dose: 80 mls/hr Documented By: sancho Morphine Sulfate (Morphine Sulfate Cr 15 Mg Tabcr) 15 mg PO BID HANNAH Stop: 01/04/25 20:59 Last Admin: 12/21/24 21:31 Dose: 15 mg Documented By: ANGELES Pramipexole Dihydrochloride (Pramipexole Dihydrochlo 0.5 Mg Tab) 1 mg PO TID HANNAH Stop: 01/20/25 20:59 Last Admin: 12/21/24 21:32 Dose: 1 mg Documented By: ANGELES Propranolol HCl (Propranolol Hcl 20 Mg Tab) 20 mg PO AMHS HANNAH Stop: 01/20/25 20:59 Last Admin: 12/21/24 21:31 Dose: 20 mg Documented By: ANGELES Trazodone HCl (Trazodone Hcl 50 Mg Tab) 50 mg PO HS HANNAH Stop: 01/20/25 20:59 Last Admin: 12/21/24 21:31 Dose: 50 mg Documented By: ANGELES Discontinued Medications Potassium Chloride ([place] / Wtr) 10 meq in 100 mls @ 100 mls/hr IV Q1H HANNAH Stop: 12/21/24 20:44 Last Infusion: 12/21/24 22:40 Dose: Infused Documented By: Admin: 12/21/24 21:33 Dose: 100 mls/hr Documented By: Infusion: 12/21/24 19:55 Dose: Infused Documented By: Admin: 12/21/24 18:55 Dose: 100 mls/hr Documented By: sancho Infusion: 12/21/24 18:55 Dose: Infused Documented By: sancho Admin: 12/21/24 17:54 Dose: 100 mls/hr Documented By: sancho Potassium Chloride (Potassium Chloride Crtab 20 Meq Tabcr) 40 meq PO NOW STA Stop: 12/21/24 17:32 Last Admin: 12/21/24 17:56 Dose: 40 meq Documented By: sancho Imaging Data Radiologist's Impression: Chest X-Ray 12/21/24 15:28 Clinical History: Chest pain Technique: 2 frontal views of the chest were obtained Comparison is made to the prior examination dated 10/31/2024 Findings: There is new patchy opacity in the left lung base, concerning for pneumonia. The heart size is within normal limits. No pleural effusion or pneumothorax is seen. There is unchanged linear atelectasis or scar in the left upper lobe. There are unchanged small right lower lung nodules, likely benign calcified granulomas No fracture is noted. No foreign body is seen Impression: Suspected left lower lobe bronchopneumonia ACT 112: Positive. There are findings on this exam that require communication between the performing entity and the patient following Patient Test Result Information Act ([place] ACT 112) guidelines. Electronically signed by Talat Alvarado 12-21-2024 4:25 PM Discharge Plan Visit Data Chief Complaint: Abnormal Labs/Diagnostic Testing Stated Complaint: BLOOD WORK DR PAGAN MESSED UP ED Provider: Warren Mac Discharge Problem: Acute hyponatremia, Chronic hypoxemic respiratory failure, Hypokalemia Patient Disposition: Admitted As Inpatient Condition: Good Discharge Instructions Interventions: ED Discharge Assessment Last Done: 12/21/24 20:20
[2024-12-21 15:42] LABS: Hematocrit (blood only) 25.2 % (37.0-47.0); Hemoglobin 9.4 g/dl (12.0-16.0); Mean Corpuscular Hemoglobin 31.0 pg (25.0-34.0); Mean Corpuscular Volume 83.2 fL (80.0-100.0); Platelet Count 346 K/uL (130-400); RDW Standard Deviation 38.5 fL (36.4-46.3); Red Blood Count 3.03 M/uL (4.20-5.40); White Blood Count 11.48 K/ul (4.8-10.8)
[2024-12-21 16:01] LABS: Alanine Aminotransferase 15.0 U/L (7-52); Albumin Globulin Ratio 1.0 (0.9-2); Alkaline Phosphatase 70.0 U/L (34-104); Anion Gap 10.0 (3-11); Bilirubin,Total 0.3 mg/dl (0.2-1.0); Blood Urea Nitrogen 30.0 mg/dl (6-23); Calcium 8.9 mg/dl (8.6-10.3); Carbon Dioxide 32.0 mmol/L (21-32); Chloride 79.0 mmol/L (98-107); Creatinine Clr Calc Pharmacy 25.2 ml/min; Globulin 3.3 gm/dl (2.5-4.0); Glucose 246.0 mg/dl (70-99(Fasting)); Lipase 15.0 U/L (11-82); Potassium 2.6 mmol/L (3.5-5.1); Sodium 121.0 mmol/L (136-145); Total Protein 6.7 gm/dl (6.0-8.3)
[2024-12-21 16:03] LABS: Basophilic Stippling 1+; Immature Granulocytes # (auto) 0.81 K/uL (0.01-0.20); Immature Granulocytes % (auto) 7.1 %; Polychromasia 1+
--- NOTE | 2024-12-21 16:25 | XRay Report ---
Clinical History: Chest pain Technique: 2 frontal views of the chest were obtained Comparison is made to the prior examination dated 10/31/2024 Findings: There is new patchy opacity in the left lung base, concerning for pneumonia. The heart size is within normal limits. No pleural effusion or pneumothorax is seen. There is unchanged linear atelectasis or scar in the left upper lobe. There are unchanged small right lower lung nodules, likely benign calcified granulomas No fracture is noted. No foreign body is seen Impression: Suspected left lower lobe bronchopneumonia ACT 112: Positive. There are findings on this exam that require communication between the performing entity and the patient following Patient Test Result Information Act ([place] ACT 112) guidelines. Electronically signed by Talat Alvarado 12-21-2024 4:25 PM
[2024-12-21] MEDS ORDERED: ACETAMINOPHEN 325 MG TAB PO PRN (17:33)
--- NOTE | 2024-12-21 17:48 | History & Physical Report ---
Date of Service December 21, 2024 Assessment & Plan (1) Hypokalemia: Plan: Assessment: 1. Hypokalemia. 3 potassium chloride riders 10 mill equivalents each with addition of 40 mill equivalents potassium chloride orally. Recheck potassium level at 11 PM with results to be called on-call provider. 2. Hyponatremia. 121. No signs or symptoms. Will replace with sodium chloride currently at 80 cc/h. Monitor her carefully. 3. Rule out concomitant hypomagnesemia. Stat magnesium levels pending. 4. Mild leukocytosis 11.48. We will monitor at this time. No evidence of infection. 5. Anemia probably of chronic disease. Hemoglobin is 9.4. Her last hemoglobin was prechemotherapy back in October it was 11.6. Will monitor carefully. There is no clinical evidence of GI bleeding excetra. 6. Active lung adenocarcinoma. Current chemotherapy treatment with oncology. Her second treatment was due tomorrow which will be placed on hold. 7. COPD without acute exacerbation. 8. Chronic hypoxemic respiratory failure with 3 L of oxygen dependency contin uously at home. She has no increase in her oxygen requirements currently she is 94% on 3 L. 9. Ongoing tobacco abuse. She is cutting back on her cigarettes still smoking a few per day. 10. History of squamous cell carcinoma of the anus. Status post resection. With chronic ileostomy. Appears healthy and intact and functioning. 11. Diabetes mellitus. Only on metformin. Will hold that at this time. Will do Accu-Cheks AC and at bedtime and be notified if less than 80 or greater than 180. If greater than 180 will introduce a sliding scale. Plan: As described above. Please refer to orders for further planning. History of Present Illness Chief Complaint: Abnormal laboratory studies including hypokalemia and hyponatremia Primary Care Provider: Sukh Holman MD This is a 69-year-old female with a active history of lung carcinoma. She is to receive her second dose of chemotherapy tomorrow. She had outpatient laboratory studies today and was notified by the cancer center to report to the ER for further evaluation and treatment for hypokalemia and hyponatremia. Sodium level 121, potassium level 2.6. We were contacted by the ER provider for admission. At the time of contacting us for admission medical intervention/electrolyte replacement had yet to be provided in the ER. We have ordered 3 potassium chloride riders 10 mill equivalents each IV with 40 mill equivalents of potassium chloride orally. We have ordered a stat magnesium level to rule out concomitant hypomagnesemia. Will place her on sodium chloride at 80 cc an hour. The patient is asymptomatic. The patient also had a mild leukocytosis just greater than 11. Will monitor this. She has no evidence of infection. Also has some anemia probably from her chronic disease. Will monitor her hemoglobin. Hemoglobin currently 9.4 with no recent to compare. Allergies Allergy/AdvReac Type Severity Reaction Status Date / Time adhesive AdvReac Intermediate ITCHY RASH Verified 12/21/24 16:48 Home Medications Medication Instructions Recorded Confirmed Type aspirin 81 mg tablet,delayed 81 mg PO QAM 02/26/19 12/21/24 History release atorvastatin 20 mg tablet 20 mg PO DAILY 02/26/19 12/21/24 History fluticasone propionate 50 2 spray intranasal QAM PRN Allergy 02/26/19 12/21/24 History mcg/actuation nasal Symptoms spray,suspension (Flonase Allergy Relief) metformin 1,000 mg tablet 1,000 mg PO BIDM 02/26/19 12/21/24 History trazodone 50 mg tablet 50 mg PO HS 02/26/19 12/21/24 History albuterol sulfate 90 mcg/actuation 2 puff inhalation Q4H PRN 03/31/19 12/21/24 History aerosol inhaler Shortness Of Breath Or Wheezing ondansetron HCl 8 mg tablet 8 mg PO Q8H PRN Nausea 05/29/20 12/21/24 History fluticasone fur. 200 mcg-umeclid 1 inh inhalation DAILY 03/02/22 12/21/24 History 62.5 mcg-vilant 25 mcg inhalat.powder (Trelegy Ellipta) propranolol 20 mg tablet 20 mg PO AMHS 03/02/22 12/21/24 History furosemide 40 mg tablet (Lasix) 40 mg PO DAILY PRN Edema 03/26/22 12/21/24 History bupropion HCl 300 mg 24 hr tablet, 300 mg PO QAM 12/24/23 12/21/24 History extended release (Wellbutrin XL) gabapentin 300 mg capsule 300 mg PO TID 12/24/23 12/21/24 History nystatin 100,000 unit/gram topical 1 applic topical TID PRN as needed 12/24/23 12/21/24 History powder (Klayesta) tizanidine 2 mg tablet 2 mg PO Q6H PRN Pain 04/09/24 12/21/24 History magnesium 200 mg tablet 200 mg PO QAM 05/16/24 12/21/24 History cyanocobalamin (vitamin B-12) 1,000 mcg PO QAM 09/07/24 12/21/24 History 1,000 mcg tablet (Vitamin B-12) oxycodone 10 mg tablet 10 mg PO Q4H PRN Severe Pain 09/07/24 12/21/24 History (Scale Score 7-10) pramipexole 1 mg tablet 1 mg PO TID 09/07/24 12/21/24 History albuterol sulfate 0.63 mg/3 mL 0.63 mg inhalation Q6H PRN Wheezing 10/24/24 12/21/24 History solution for nebulization dexamethasone 4 mg tablet 4 mg PO DIRECTED PRN PRIOR TO 12/21/24 12/21/24 History CHEMO folic acid 1 mg tablet 1 mg PO DAILY 12/21/24 12/21/24 History morphine 15 mg tablet,extended 15 mg PO BID 12/21/24 12/21/24 History release pantoprazole 40 mg tablet,delayed 40 mg PO DAILY PRN Heartburn 12/21/24 12/21/24 History release prochlorperazine maleate 10 mg 10 mg PO Q6H PRN NAUSEA/VOMITING 12/21/2412/11 History tablet valacyclovir 1 gram tablet 2,000 mg PO BID PRN COLD SORES 12/21/24 12/21/24 History (Valtrex) NEEDED Past Med/Surg History Problem List (Updated 11/23/24 @ 00:07 by Background Daemon) Multiple pulmonary nodules determined by computed tomography of lung Malignant neoplasm of upper lobe, left bronchus or lung Hypokalemia 04/2024 Hypomagnesemia 04/2024 JOSEPHINE (acute kidney injury) 04/2024 2/2 SBO Nausea & vomiting (Acute) Right sided abdominal pain (Acute) SBO (small bowel obstruction) (Acute) 03/2024 Elevated troponin I level GI bleed Acute hyponatremia (Acute) 12/2023 Acute GI bleeding (Acute) 12/2023 Acute exacerbation of chronic obstructive pulmonary disease (Acute) 08/2023 Acute respiratory failure with hypoxia and hypercarbia (Acute) duplicafe Lactic acidosis 08/2023 Hypotension 08/2023 Acute hypoxic respiratory failure 3L O2 PRN Primary cancer of left upper lobe of lung (Chronic 11/26/22) Tachycardia 02/2022 Hyponatremia chronic Ileostomy present Hypoxia on home O2; 3L PRN Essential tremor DVT prophylaxis Chronic back pain HLD (hyperlipidemia) DM type 2 (diabetes mellitus, type 2) Parastomal hernia with obstruction and without gangrene (Acute) COPD (chronic obstructive pulmonary disease) Fibromyalgia 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) Medical History (Updated 11/23/24 @ 00:07 by Lacey Blake) History of ectopic Hyponatremia chronic hyponatremia; PCP and cardio monitoring (HFpEF) heart failure with preserved ejection fraction HTN (hypertension) CKD (chronic kidney disease), stage III Cigarette smoker pt continues to smoke Hyperlipidemia Fibromyalgia Lung cancer hx L sided lesions, s/p XRT; now with R lesions on imaging On home O2 uses 3L O2 PRN (usually wears every night) Ileostomy present hx of anal ca Essential tremor Primary cancer of left upper lobe of lung dx 01/2023; tx with 5 XRT Chronic pain DMII (diabetes mellitus, type 2) COPD (chronic obstructive pulmonary disease) uses 3L O2 PRN (usually wears every night) Insomnia GERD (gastroesophageal reflux disease) DJD (degenerative joint disease) Diabetic neuropathy Bilateral hands and feet Squamous cell carcinoma of anal canal Diagnosed 05/05/2019. Invasive, moderately differentiated, P-16 positive, Positive margin. s/p ileostomy, completed mitomycin x1 dose on 06/14/2019 and Xeloda along with radiation treatment between 06/09/2019-07/28/2019 Breast infection in female Hx of chronic left breast infections for 20 years; no current issues per pt Heart murmur per 12/2023 ECHO: mild aortic sclerosis without aortic stenosis. mild TR. Degenerative disc disease History of hemorrhoids Low back pain with right-sided sciatica multiple pain management injections with Dr. Archer Hip pain, chronic right Surgical History (Updated 10/31/24 @ 06:37 by Alie Huff RN) Hx of foot surgery left History of ankle surgery left History of carpal tunnel surgery History of tubal ligation History of hand surgery middle finger "knuckle" surgery History of tooth extraction Hx of cataract extraction right/left Hx of ileostomy 2020 S/P trigger finger release Status post trigger finger release History of shoulder surgery right 2009, ;left-2012. History of hernia repair History of breast surgery nipple areola reconstruction, s/p multiple infections History of neck surgery excision of lipoma-08/23/17 History of cholecystectomy 08/17/16 History of arthroscopy of right knee History of arthroplasty of left knee History of rectal abscess with I &D 05/05/19 History of colonoscopy 2010, 2016 History of breast biopsy 1994, 2001 History of hysterectomy age 37 History of hemorrhoidectomy 02/17/19 Family History Grandmother (Maternal) , in 60's Lung cancer Brother No problems noted. Sister No problems noted. Daughter No problems noted. Son No problems noted. Other No family history of adverse response to anesthesia No pertinent family history in first degree relatives Social History (Updated 10/06/24 @ 13:48 by Miladis Stuart RN) Smoking Status: Current every day smoker Tobacco Type: Cigarettes packs per day: 1; Cigarettes Per Day: less than 10 per day- advised; Second Hand Exposure: Yes ("BF smokes sometimes"); Do You Dip or Chew Tobacco: No; Hx Alcohol Use: No Preferred Language: Luxembourger Communication Ability: Effective Visual Impairment: Limited Hearing Ability: Hard of Hearing Nurse Tech Required: No Beliefs That Will Affect Care: None marital status: Current Living Situation: Significant Other Current Living Situation Comment: boyfriend current occupational status: disabled 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 Physical Exam Physical Exam: In General: In general pleasant 69-year-old female who is alert and oriented x 3. She is asymptomatic currently. She lives at home with her significant other. She continues to smoke but is quitting since her cancer diagnosis. She is down to a few cigarettes per day. She interacts appropriately and pleasantly. HEENT: Normocephalic atraumatic pupils are equal round and reactive to light bilaterally. No scleral icterus no conjunctival injection external auditory canals are patent septum is in the midline nose is without discharge oral mucosa is pink and dry without lesion. Chemotherapy-induced alopecia noted NECK: Supple no rigidity no lymphadenopathy no thyromegaly no carotid bruits no JVD no masses. HEART: Regular rate and rhythm I do not appreciate any ectopy or rub. No murmur. LUNGS: Coarse bilaterally with bilateral expiratory wheezes. ABDOMEN: Soft nontender, no rebound, no peritoneal signs, positive bowel sounds, no appreciable organomegaly. Ileostomy noted in the right mid quadrant. Appears healthy. EXTREMITIES: Intact, no peripheral cyanosis, clubbing or edema. Strength is 5 out of 5 in extremities x4. NEUROLOGICAL: Cranial nerves II through XII are grossly intact with no focal deficit elicited upon examination. Results & Data Results & Data Vital Signs (Past 12 Hours) Vital Signs Pulse Resp BP Pulse Ox O2 Del Method O2 Flow Rate 12/21/24 16:00 105/61 12/21/24 15:57 76 12 94 12/21/24 15:33 80 8 L 94 12/21/24 15:33 97/61 L 12/21/24 15:33 97/61 L 12/21/24 15:33 97/61 L 12/21/24 15:32 83 12/21/24 15:31 93 Nasal Cannula 3 12/21/24 15:03 97 H 14 113/50 L 93 Nasal Cannula 3 Code Status & VTE Plan Code Status Full code. I personally discussed with patient at the bedside. VTE Prophylaxis Plan VTE Prophylaxis will be ordered: Yes PG Care Time/CCT Total # of Minutes Spent Total Time Spent with Patient: Total time spent is greater than 50% in coordination of care (as documented) at patient's floor/unit and/or counseling patient: Coding Level of Care Code 60818 INT INP/OBS CARE 3/75MIN Diagnoses Hypokalemia E87.6
[2024-12-21 17:52] LABS: Magnesium 2.0 mg/dl (1.7-2.4)
[2024-12-21] MEDS: SODIUM CHLORIDE 0.9% 1,000 ML IV SCH (17:54)
[2024-12-21] MEDS: POTASSIUM CHLORIDE / WTR 10 MEQ/100 ML PLCT IV SCH (17:54)
[2024-12-21] MEDS: POTASSIUM CHLORIDE CRTAB 20 MEQ TABCR PO STA (17:56)
[2024-12-21] MEDS ORDERED: PROCHLORPERAZINE MALEATE 10 MG TAB PO PRN (20:47)
[2024-12-21] MEDS ORDERED: FLUTICASONE PROPIONATE NA SPR 16 GM BTL PRN (20:47)
[2024-12-21] MEDS ORDERED: NYSTATIN POWDER 15GM BTL EXT PRN (20:47)
[2024-12-21] MEDS ORDERED: ALBUTEROL 0.083% NEBU SOLN 3 ML VIAL INH PRN (20:58)
[2024-12-21] MEDS: PROPRANOLOL HCL 20 MG TAB PO SCH (21:31)
[2024-12-21] MEDS: MoRPHine SULFATE CR 15 MG TABCR PO SCH (21:31)
[2024-12-21] MEDS: PRAMIPEXOLE DIHYDROCHLO 0.5 MG TAB PO SCH (21:32)
[2024-12-21] MEDS: GABAPENTIN 300 MG CAP PO SCH (21:32)
[2024-12-21 23:27] LABS: Anion Gap 9.0 (3-11); Blood Urea Nitrogen 25.0 mg/dl (6-23); Calcium 9.0 mg/dl (8.6-10.3); Carbon Dioxide 33.0 mmol/L (21-32); Chloride 84.0 mmol/L (98-107); Creatinine Clr Calc Pharmacy 26.8 ml/min; Glucose 131.0 mg/dl (70-99(Fasting)); Potassium 2.8 mmol/L (3.5-5.1); Sodium 126.0 mmol/L (136-145)
[2024-12-22] MEDS: POTASSIUM CHLORIDE CRTAB 20 MEQ TABCR PO STA ×2 (00:39→07:54)
[2024-12-22] MEDS: POTASSIUM CHLORIDE / WTR 10 MEQ/100 ML PLCT IV SCH (00:43)
[2024-12-22 06:36] LABS: Hematocrit (blood only) 28.3 % (37.0-47.0); Hemoglobin 9.8 g/dl (12.0-16.0); Mean Corpuscular Hemoglobin 29.3 pg (25.0-34.0); Mean Corpuscular Volume 84.7 fL (80.0-100.0); Platelet Count 366 K/uL (130-400); RDW Standard Deviation 39.5 fL (36.4-46.3); Red Blood Count 3.34 M/uL (4.20-5.40); White Blood Count 9.00 K/ul (4.8-10.8)
[2024-12-22 07:04] LABS: Alanine Aminotransferase 14.0 U/L (7-52); Albumin Globulin Ratio 1.0 (0.9-2); Alkaline Phosphatase 66.0 U/L (34-104); Anion Gap 10.0 (3-11); Bilirubin,Total 0.3 mg/dl (0.2-1.0); Blood Urea Nitrogen 19.0 mg/dl (6-23); Calcium 9.0 mg/dl (8.6-10.3); Carbon Dioxide 28.0 mmol/L (21-32); Chloride 93.0 mmol/L (98-107); Cholesterol 113.0 mg/dl (0-200); Creatinine Clr Calc Pharmacy 37.8 ml/min; Globulin 3.2 gm/dl (2.5-4.0); Glucose 171.0 mg/dl (70-99(Fasting)); HDL Cholesterol 45.0 mg/dl; Magnesium 2.0 mg/dl (1.7-2.4); Potassium 3.5 mmol/L (3.5-5.1); Sodium 131.0 mmol/L (136-145); Total Protein 6.5 gm/dl (6.0-8.3); Triglycerides 155.0 mg/dl (0-150)
[2024-12-22 07:16] LABS: Thyroid Stimulating Hormone 1.365 uIu/ml (0.300-4.500)
[2024-12-22 07:20] VITALS: BP 112/64; PULSE 91; RESP 20; TEMP 98.2; O2SAT 93
[2024-12-22 07:24] LABS: Immature Granulocytes # (auto) 0.73 K/uL (0.01-0.20); Immature Granulocytes % (auto) 8.1 %
--- NOTE | 2024-12-22 07:35 | Hospitalist Progress Note ---
Date of Service December 22, 2024 Assessment & Plan (1) Hypokalemia: Plan: Emiliana is a 69yo F with a history of lung carcinoma scheduled to receive chemotherapy 12/22/2024 who was referred to the ER by the cancer center for hypokalemia and hyponatremia. Lung adenocarcinoma Left upper lobe adenocarcinoma T1b N0 M0, diagnosed November 2022. S/p SBRT 01/2023 Following with [facility] oncology. - was pending immunotherapy 12/22/2024, was referred to the ER for electrolyte abnormalities on pretreatment labs Sodium improved to 126-131, potassium 2.8 normalized to 3.5, magnesium was normal 2.0. Urine osmolality was low and urine sodium was conserved/less than 10. By report suspected volume contracted Creatinine baseline ranging from around 11.46 in the last year, more recently approximately 1.43 Creatinine 1.74 initially, rapidly downtrending repeat 1.26 Mild leukocytosis Resolved, no acute infectious symptoms, afebrile Chronic hypoxic respiratory failure, COPD At baseline. On 3 L home requirement. Continue inhalers Ongoing tobacco abuse Cessation recommended DM2 Metformin held for JOSEPHINE, glycemic control adequate on SSI Admission and Anticipated Discharge Date Admission Date: December 21, 2024 Results & Data Results & Data Vital Signs (Past 12 Hours) Vital Signs Temp Pulse Pulse Resp BP BP BP 12/22/24 07:18 36.8 C 91 H 20 89/63 L 112/64 12/22/24 03:00 36.5 C 79 16 109/63 12/21/24 22:25 36.6 C 86 18 121/65 12/21/24 20:45 90 12/21/24 20:45 36.9 C 90 18 122/70 12/21/24 20:45 12/21/24 20:20 12/21/24 19:36 85 16 12/21/24 19:31 130/68 Pulse Ox O2 Del Method O2 Flow Rate 12/22/24 07:18 93 Nasal Cannula 3 12/22/24 03:00 91 Nasal Cannula 3 12/21/24 22:25 93 Nasal Cannula 3 12/21/24 20:45 12/21/24 20:45 96 Nasal Cannula 3 12/21/24 20:45 Nasal Cannula 3 12/21/24 20:20 Nasal Cannula 3 12/21/24 19:36 97 12/21/24 19:31 PG Care Time/CCT Total # of Minutes Spent Total Time Spent with Patient: Total time spent is greater than 50% in coordination of care (as documented) at patient's floor/unit and/or counseling patient: Coding Diagnoses Hypokalemia E87.6
[2024-12-22] MEDS: LACTATED RINGER'S 1,000 ML IV SCH (07:47)
[2024-12-22] MEDS: CYANOCOBALAMIN (B-12) 500 MCG TABLET PO SCH (07:48)
[2024-12-22] MEDS: MAGNESIUM OXIDE 400 MG TAB PO SCH (07:48)
[2024-12-22] MEDS: ASPIRIN 81 MG ECTAB PO SCH (07:48)
[2024-12-22] MEDS: FOLIC ACID 1 MG TAB PO SCH (07:49)
[2024-12-22] MEDS: ATORVASTATIN 20 MG TAB PO SCH (07:49)
[2024-12-22] MEDS: FLUTICASONE FUROATE 200MCG 14 PUFFS/INHALER INH SCH (07:49)
[2024-12-22] MEDS: UMECLIDINIUM/VILANTEROL 62.5/25MCG 7 PUFFS/INHALER INH SCH (07:49)
[2024-12-22] MEDS ORDERED: NON-FORMULARY MEDICATION (Fluticasone-Umeclidin-Vilanter [Trelegy Ellipta] 200-62.5-25 mcg INH SCH (09:00)
--- NOTE | 2024-12-22 09:55 | Discharge Summary ---
Discharge Summary Date of Service December 22, 2024 Principal Dx & Hospital Course #1 = Principal Diagnosis (1) Hypokalemia: Emiliana is a 69yo F with a history of lung carcinoma scheduled to receive chemotherapy 12/22/2024 who was referred to the ER by the cancer center for hypokalemia and hyponatremia. She was subsequently also treated for left lower lobe pneumonia To do as outpatient: Complete 4 additional days of cefpodoxime twice daily for left lower lobe pneumonia Continue 3 additional days of potassium supplementation Repeat BMP as outpatient Follow-up with PCP, oncology Hypokalemia, hyponatremia Resolved with fluid repletion and oral supplementation. Discharged to continue 3 days of oral potassium supplementation. 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 S/p SBRT 01/2023 Following with [facility] oncology. was pending immunotherapy 12/22/2024, was referred to the ER for electrolyte abnormalities on pretreatment labs Sodium improved to 126-131, potassium 2.8 normalized to 3.5, magnesium was normal 2.0. Urine osmolality was low and urine sodium was conserved/less than 10. By report suspected volume contracted Creatinine baseline ranging from around 11.46 in the last year, more recently approximately 1.43 Creatinine 1.74 initially, rapidly downtrending on repeat 1.26 Left lower lobe pneumonia Chest x-ray suspicious for left lower lobe bronchopneumonia Transiently with slightly elevated white count which normalized on 12/22 without antibiotics. She did however have a creatinine ascitic left shift, fever [employer], and is at increased risk of medications given her underlying malignancy Patient felt well and wished for discharge home on 12/22. Given suspected lobar findings and elevated white count did opt to treat her with 1 dose of Rocephin, to transition to 4 days of cefpodoxime as outpatient. She felt comfortable with discharge and felt well and was on her home level of oxygen and did not wish for further observation at time of visit. Given good clinical appearance was discharged close follow-up with PCP and repeat blood work to be performed within 1 week Lungs slightly diminished in the left lower lobe, no wheezes/rales on discharge assessment Chronic hypoxic respiratory failure, COPD At baseline. On 3 L home requirement. Continue inhalers Ongoing tobacco abuse Cessation recommended DM2 Metformin held for JOSEPHINE, glycemic control adequate on SSI. Resume home medications at discharge, repeat BMP within 1 week Admission HPI Per Admitting Provider This is a 69-year-old female with a active history of lung carcinoma. She is to receive her second dose of chemotherapy tomorrow. She had outpatient laboratory studies today and was notified by the cancer center to report to the ER for further evaluation and treatment for hypokalemia and hyponatremia. Sodium level 121, potassium level 2.6. We were contacted by the ER provider for admission. At the time of contacting us for admission medical intervention/electrolyte replacement had yet to be provided in the ER. We have ordered 3 potassium chloride riders 10 mill equivalents each IV with 40 mill equivalents of potassium chloride orally. We have ordered a stat magnesium level to rule out concomitant hypomagnesemia. Will place her on sodium chloride at 80 cc an hour. The patient is asymptomatic. The patient also had a mild leukocytosis just greater than 11. Will monitor this. She has no evidence of infection. Also has some anemia probably from her chronic disease. Will monitor her hemoglobin. Hemoglobin currently 9.4 with no recent to compare. Discharge Exam General: A&Ox3. NAD. Cooperative. HEENT: Atraumatic, normocephalic. Vision and hearing grossly intact Pulm: CTAB A&P. -wheezes, -rales, -rhonchi. Symmetrical chest rise. No increased work of breathing. No respiratory distress. Cardiac: RRR, -mrg. Radial pulses intact and symmetrical. Abdominal: Ostomy intact, no increased output. Abdomen nontender, nondistended, soft. BS present. Discharge Plan Discharge Items Patient Disposition: Home - Self-Care Reason For Visit: HYPOKALEMIA,HYPONATREMIA Discharge Diagnosis: Hypokalemia, poor p.o. intake Left lower lobe pneumonia Condition on Discharge: Good Activity: Resume your previous activity Non-emergency contact: Primary Care Provider and Oncologist Call non-emergency contact if: you have any medication questions, your symptoms worsen and your pain is not controlled Follow-up/Referrals: Marciano Pagan MD [Surgeon] - Macario cAkerman MD [Outside Practitioners] - 12/25/24 8:30 am Sukh Holman MD [Primary Care Provider] - 12/26/24 11:00 am Diet: Regular Addtl Attending Provider Instructions: You are seen at hospital for low electrolyte levels. You were also found to have suspected left lower lobe pneumonia. Your electrolyte levels normalized with fluids and repletion. You have been prescribed 3 additional days of potassium supplementation. Please take potassium 20 mEq by mouth once daily for the next 3 days. You should have your electrolyte and kidney levels checked within 1 week by your PCP or oncologist. You were suspected to have possible developing left lung pneumonia. You were prescribed ceftriaxone. You felt clinically well, were not toxic, and 1 your home oxygen requirements at time of discharge. If you have any worsening symptoms, please seek prompt medical reevaluation. Your oncologist was notified of your admission and care plan, you should receive a call with further information regarding when is appropriate to resume your immunotherapy and when this will be rescheduled. If you develop any new or worsening symptoms including fever, chills, sweats, chest pain, chest pressure, difficulty breathing, uncontrolled nausea/vomiting, rash, wheezing, passing out or nearly passing out, bleeding, black/bloody bowel movements, or other new or concerning symptoms please call your primary care physician, or call 911 for re-evaluation in the emergency department if you are very concerned. Pending Studies at Discharge: No Stand-Alone Forms: My [facility], Smoking Cessation Medications and DC Order Prescriptions: New cefpodoxime 200 mg tablet 200 mg PO BID 4 Days Qty: 8 0RF Rx Instructions: must administer with a meal/food. Start taking morning of 12/23/24 potassium chloride 10 mEq capsule, extended release 20 meq PO DAILY Qty: 6 0RF Continued pramipexole 1 mg Tablet 1 mg PO TID cyanocobalamin (vitamin B-12) [Vitamin B-12] 1,000 mcg Tablet 1,000 mcg PO QAM oxycodone 10 mg Tablet 10 mg PO Q4H MDD 3 TABS/24 HOURS PRN (Reason: Severe Pain (Scale Score 7-10)) ondansetron HCl 8 mg tablet 8 mg PO Q8H PRN (Reason: Nausea) albuterol sulfate 90 mcg/actuation HFA aerosol inhaler 2 puff inhalation Q4H PRN (Reason: Shortness Of Breath Or Wheezing) trazodone 50 mg tablet 50 mg PO HS metformin 1,000 mg tablet 1,000 mg PO BIDM fluticasone propionate [Flonase Allergy Relief] 50 mcg/actuation spray,suspension 2 spray INTRANASAL QAM PRN (Reason: Allergy Symptoms) atorvastatin 20 mg Tablet 20 mg PO DAILY aspirin 81 mg Tablet,Delayed Release (Dr/Ec) 81 mg PO QAM Trelegy Ellipta 200-62.5-25 mcg blister with device 1 inh INHALATION DAILY propranolol 20 mg tablet 20 mg PO AMHS furosemide [Lasix] 40 mg tablet 40 mg PO DAILY PRN (Reason: Edema) nystatin [Klayesta] 100,000 unit/gram powder 1 applic TOPICAL TID PRN (Reason: as needed) bupropion HCl [Wellbutrin XL] 300 mg tablet extended release 24 hr 300 mg PO QAM gabapentin 300 mg capsule 300 mg PO TID albuterol sulfate 0.63 mg/3 mL Solution For Nebulization 0.63 mg INHALATION Q6H PRN (Reason: Wheezing) pantoprazole 40 mg tablet,delayed release (DR/EC) 40 mg PO DAILY PRN (Reason: Heartburn) valacyclovir [Valtrex] 1 gram Tablet 2,000 mg PO BID PRN (Reason: COLD SORES NEEDED) prochlorperazine maleate 10 mg tablet 10 mg PO Q6H PRN (Reason: NAUSEA/VOMITING) folic acid 1 mg Tablet 1 mg PO DAILY morphine 15 mg tablet extended release 15 mg PO BID dexamethasone 4 mg tablet 4 mg PO DIRECTED PRN (Reason: PRIOR TO CHEMO) tizanidine 2 mg tablet 2 mg PO Q6H PRN (Reason: Pain) magnesium 200 mg tablet 200 mg PO QAM Discharge Orders: Discharge Order (Routine); Ordered 12/22/24 Ordered By: Sukhjinder Mckinnon/Other Patient Handouts: Hypokalemia Dc, Hyponatremia Dc Admission Data Admit Date/Time: 12/21/24 17:33 Attending Provider: Sukhjinder Calderon Admit Provider: Paul Roberts Primary Care Provider: Sukh Holman Other Providers: Paul Roberts Other Interventions: Discharge Summary Assessment (RN) Last Done: 12/22/24 11:18 Hospital Stay Data Consultations 12/21/24 16:17 ED Decision to Admit Stat Discharge Instructions Given to Patient (Per Discharging Provider) You are seen at hospital for low electrolyte levels. You were also found to have suspected left lower lobe pneumonia. Your electrolyte levels normalized with fluids and repletion. You have been prescribed 3 additional days of potassium supplementation. Please take potassium 20 mEq by mouth once daily for the next 3 days. You should have your electrolyte and kidney levels checked within 1 week by your PCP or oncologist. You were suspected to have possible developing left lung pneumonia. You were prescribed ceftriaxone. You felt clinically well, were not toxic, and 1 your home oxygen requirements at time of discharge. If you have any worsening symptoms, please seek prompt medical reevaluation. Your oncologist was notified of your admission and care plan, you should receive a call with further information regarding when is appropriate to resume your immunotherapy and when this will be rescheduled. If you develop any new or worsening symptoms including fever, chills, sweats, chest pain, chest pressure, difficulty breathing, uncontrolled nausea/vomiting, rash, wheezing, passing out or nearly passing out, bleeding, black/bloody bowel movements, or other new or concerning symptoms please call your primary care physician, or call 911 for re-evaluation in the emergency department if you are very concerned. Total Time Total Time Spent Total Time Spent (In Minutes): Time spend day of discharge 40 minutes including direct patient care, documentation, review of labs and images, and coordination of care. Coding Level of Care Code 07219 INP/OBS DISCH >30 MIN Diagnoses Hypokalemia E87.6
[2024-12-22] MEDS: cefTRIAXone SODIUM 2,000 MG/50 ML BAG IV STA (10:33)
[2024-12-22 10:48] LABS: Hemoglobin A1C 7.3 % (4.5-5.6)
--- NOTE | 2024-12-22 22:47 | Electrocardiogram Report ---
Test Reason : Blood Pressure : */* mmHG Vent. Rate : 78 BPM Atrial Rate : 78 BPM P-R Int : 184 ms QRS Dur : 82 ms QT Int : 400 ms P-R-T Axes : -29 -8 -15 degrees QTcB Int : 456 ms Normal sinus rhythm Inferior-posterior infarct (cited on or before 23-Dec-2023) Abnormal ECG When compared with ECG of 31-Oct-2024 06:36, T wave inversion now evident in Inferior leads Confirmed by Erlin Lees ([id number]) on 12/22/2024 10:47:09 PM Referred By: REFERRED SELF Confirmed By: Erlin Lees
== END 2024-12-22 13:03 | disposition home or self-care (01) | DRG 640 ==
LOC: ED 15:01 → SUATTDRO 17:33 → 2E 17:33

== ENCOUNTER 2025-02-15 10:35 | Inpatient (IN) ==
--- NOTE | 2025-02-15 11:14 | Emergency Department Note ---
Impression & Plan Hyponatremia, Hypokalemia, Hypomagnesemia, JOSEPHINE (acute kidney injury), Elevated troponin I level ED Provider Note CHIEF COMPLAINT: L x 1 month, dizziness, lightheadedness HISTORY OF PRESENTING ILLNESS: Patient is a 69-year-old female who presents to the emergency department today for complaints of feeling ill for the past month with recent hospitalization for electrolyte abnormalities, dizziness, lightheadedness, chronic shortness of breath. Patient has a history of hypokalemia, hyponatremia, hypomagnesemia, COPD, chronic hypoxemic respiratory failure, tobacco use, lung cancer. Wears 3 L of oxygen via nasal cannula at all times. She did not receive chemotherapy this week due to a reported low potassium and sodium level. Her PCP put her on potassium supplements. She is also concerned because she has had nasal congestion and flulike symptoms for the past month and has had no improvement. She is also reporting dizziness and lightheadedness that has been off and on for the past several days. She denies any anticoagulant use, visual changes, syncope. She is a smoker but has recently cut back, denies alcohol use, denies drug use. She does chronically use oxycodone and morphine for pain management. Patient denies chest pain, sob, breathing difficulties, abdominal pain, headache, fevers/chills, blood in stool or urine, any recent illness, or any recent travel. REVIEW OF SYSTEMS: See HPI for pertinent positives and pertinent negatives. ALLERGIES: See below MEDICATIONS: See below PAST MEDICAL HISTORY: See below PHYSICAL EXAM: VITALS: Vitals are noted on the nurse's note and reviewed by myself. GENERAL: Non toxic, in no acute distress, non-diaphoretic. SKIN: Capillary refill <2 sec. EYES: PERRLA. EOMI. Conjunctivae without injection, sclerae without icterus. NOSE: Patent with clear nasal discharge. MOUTH: Mucous membranes moist. Uvula midline. Airway patent. NECK: Supple without nuchal rigidity. HEART: Regular rate and rhythm without murmurs gallops or rubs. LUNGS: Clear to auscultation bilaterally without wheezes, rales or rhonchi. No retractions or accessory muscle use. ABDOMEN: Positive bowel sounds x 4. Normal tympanic percussion. Soft, nontender to palpation. No masses or hepatosplenomegaly. Do sign negative. No CVA tenderness. No guarding, rigidity, or rebound tenderness. No focal RLQ or LLQ tenderness. MUSCULOSKELETAL: Increased weakness. Ambulatory with steady gait. No gross musculoskeletal defects. NEURO: Patient was alert and oriented. No focal neurological deficits. NIH 0. DIFFERENTIAL DIAGNOSIS: The differential diagnosis includes acute intracranial bleed, meningitis, encephalitis, mass or mass effect, sinusitis, infection, tumor, headache, temporal arteritis and carbon monoxide exposure, migraine, acute coronary syndrome, pulmonary embolism, pneumothorax, pericarditis, myocarditis, endocarditis, anxiety, musculoskeletal pain, GERD, costochondritis, pneumonia, among others. ED COURSE AND MEDICAL DECISION MAKING: HISTORY FROM INDEPENDENT HISTORIAN: History was provided by the patient and her son at bedside who secondary historian. MONITOR: Continuous classroom monitor: Order was placed for continuous classroom monitor. Patient was placed on the classroom monitor and continuous pulse ox. Patient was noted to be in normal sinus rhythm at an initial rate of 72 bpm per my interpretation. INTERPRETATION OF LABS: I interpreted the labs with full lab results as below in the lab section of this note. Laboratory results pertinent to the emergent complaint are discussed in the MDM section below. The patient was advised to follow up with their PCP and/or specialist(s) for further outpatient monitoring and management of any abnormal results. INTERPRETATION OF IMAGING: Imaging studies were interpreted by myself and read by radiology as per the imaging section of this note. The patient was advised to follow up with their PCP and/or specialist(s) for further outpatient management of any non-emergent abnormal findings. CHRONIC MEDICAL/SOCIAL CONDITIONS AFFECTING CARE: No social concerns were identified as barriers to patients care. EXTERNAL RECORDS REVIEWED: Patient's previous hospitalization from 12/21/2024 for electrolyte abnormalities and COPD exacerbation. ESCALATION OF CARE CONSIDERED: I considered admission on this patient due to multiple electrolyte abnormalities. CONSULTATIONS: I had a meaningful discussion about this patient with Dr. Jones who agrees with my assessment and the treatment plan. I also consulted with Rohan Kamara PA-C for admission to the hospital. The patient was accepted. SUMMARY: I examined the patient for complaints of flulike symptoms, dizziness. A physical exam and history were performed. Nursing notes, EMR, and medication list were personally reviewed. CBC showed no leukocytosis or thrombocytopenia. Hemoglobin was 7.8. CMP did show a sodium of 126, potassium of 2.9, chloride of 81, carbon dioxide 35, creatinine 1.51, magnesium of 1.3. Patient was given 2 K riders, 1gm of magnesium, 1L NSS bolus, and 1L NSS at 125ml/hr. Troponin was 14.8. Repeat troponin was pending upon admission. Urinalysis was negative for leukocytes, nitrates, bacteria. CTA of the head and neck showed no acute findings. Chest x-ray did show a minimal atelectasis of the left lung base but no other acute findings. I did consult with Rohan Kamara PA-C for admission to the hospital and the patient was accepted. DIAGNOSIS: Hypomagnesemia, hypokalemia hypoatremia, elevated troponin TREATMENT PLAN/DISCHARGE INSTRUCTIONS: Admit to hospitalist services. The chart was completed utilizing [employer] voice recognition software.Grammatical errors, random word insertions, pronoun errors, and incomplete sentences are an occasional consequence of this system due to software limitations, ambient noise, and hardware issues.Any formal questions or concerns about the content, text, or information contained within the body of this dictation should be directly addressed to the physician for clarification. Past Med/Surg History Problem List (Updated 02/15/25 @ 16:18 by Rohan Kamara PA-C) Lung cancer hx L sided lesions, s/p XRT; now with R lesions on imaging Anemia Chronic hypoxemic respiratory failure (Acute) Acute hyponatremia (Acute) Multiple pulmonary nodules determined by computed tomography of lung Malignant neoplasm of upper lobe, left bronchus or lung Hypokalemia (Acute) 04/2024 Hypomagnesemia (Acute) 04/2024 JOSEPHINE (acute kidney injury) (Acute) 04/2024 2/2 SBO Nausea & vomiting (Acute) Right sided abdominal pain (Acute) SBO (small bowel obstruction) (Acute) 03/2024 Elevated troponin I level (Acute) GI bleed Acute hyponatremia (Acute) 12/2023 Acute GI bleeding (Acute) 12/2023 Acute exacerbation of chronic obstructive pulmonary disease (Acute) 08/2023 Acute respiratory failure with hypoxia and hypercarbia (Acute) duplicafe Lactic acidosis 08/2023 Hypotension 08/2023 Acute hypoxic respiratory failure 3L O2 PRN Primary cancer of left upper lobe of lung (Chronic 11/26/22) Tachycardia 02/2022 Hyponatremia (Acute) chronic Ileostomy present Hypoxia on home O2; 3L PRN Essential tremor DVT prophylaxis Chronic back pain HLD (hyperlipidemia) DM type 2 (diabetes mellitus, type 2) Parastomal hernia with obstruction and without gangrene (Acute) COPD (chronic obstructive pulmonary disease) Fibromyalgia 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) Medical History History of ectopic Hyponatremia chronic hyponatremia; PCP and cardio monitoring (HFpEF) heart failure with preserved ejection fraction HTN (hypertension) CKD (chronic kidney disease), stage III Cigarette smoker pt continues to smoke Hyperlipidemia Fibromyalgia Lung cancer hx L sided lesions, s/p XRT; now with R lesions on imaging On home O2 uses 3L O2 PRN (usually wears every night) Ileostomy present hx of anal ca Essential tremor Primary cancer of left upper lobe of lung dx 01/2023; tx with 5 XRT Chronic pain DMII (diabetes mellitus, type 2) COPD (chronic obstructive pulmonary disease) uses 3L O2 PRN (usually wears every night) Insomnia GERD (gastroesophageal reflux disease) DJD (degenerative joint disease) Diabetic neuropathy Bilateral hands and feet Squamous cell carcinoma of anal canal Diagnosed 05/05/2019. Invasive, moderately differentiated, P-16 positive, Positive margin. s/p ileostomy, completed mitomycin x1 dose on 06/14/2019 and Xeloda along with radiation treatment between 06/09/2019-07/28/2019 Breast infection in female Hx of chronic left breast infections for 20 years; no current issues per pt Heart murmur per 12/2023 ECHO: mild aortic sclerosis without aortic stenosis. mild TR. Degenerative disc disease History of hemorrhoids Low back pain with right-sided sciatica multiple pain management injections with Dr. Archer Hip pain, chronic right Surgical History Hx of foot surgery left History of ankle surgery left History of carpal tunnel surgery History of tubal ligation History of hand surgery middle finger "knuckle" surgery History of tooth extraction Hx of cataract extraction right/left Hx of ileostomy 2020 S/P trigger finger release Status post trigger finger release History of shoulder surgery right 2009, ;left-2012. History of hernia repair History of breast surgery nipple areola reconstruction, s/p multiple infections History of neck surgery excision of lipoma-08/23/17 History of cholecystectomy 08/17/16 History of arthroscopy of right knee History of arthroplasty of left knee History of rectal abscess with I &D 05/05/19 History of colonoscopy 2016 History of breast biopsy 1994, 2001 History of hysterectomy age 37 History of hemorrhoidectomy 02/17/19 Family History Grandmother (Maternal) , in 60's Lung cancer Brother No problems noted. Sister No problems noted. Daughter No problems noted. Son No problems noted. Other No family history of adverse response to anesthesia No pertinent family history in first degree relatives Social History Smoking Status: Current every day smoker Tobacco Type: Cigarettes packs per day: 1; Cigarettes Per Day: less than 10 per day- advised; Second Hand Exposure: No; Do You Dip or Chew Tobacco: No; Hx Alcohol Use: No Hx Substance Use: No Preferred Language: Estonian Communication Ability: Effective Visual Impairment: Limited Hearing Ability: Hard of Hearing Bartender Required: No Beliefs That Will Affect Care: None marital status: Current Living Situation: Significant Other Current Living Situation Comment: boyfriend current occupational status: disabled current occupation: last worked in [employer] as [employer] in march Other Information That Helps Us Care for You: No Feels Safe at Home: Yes Safety Concerns: Feels Safe At This Time Childhood Exposure to Second-Hand Smoke: Yes caffeine: Yes (mountain dew daily 2 liters a day) Dental Care, Regularly: No Assistive Devices: Glasses and Oxygen - Continuous Allergies Allergies Allergy/AdvReac Type Severity Reaction Status Date / Time adhesive AdvReac Intermediate ITCHY RASH Verified 12/21/24 16:48 Home Meds Home Medications Medication Instructions Recorded Confirmed aspirin 81 mg tablet,delayed 81 mg PO QAM 02/26/19 02/15/25 release atorvastatin 20 mg tablet 0 mg PO DAILY 02/26/19 02/15/25 fluticasone propionate 50 2 spray intranasal QAM PRN Allergy 02/26/19 02/15/25 mcg/actuation nasal Symptoms spray,suspension (Flonase Allergy Relief) metformin 1,000 mg tablet 0 mg PO BIDM 02/26/19 02/15/25 trazodone 50 mg tablet 50 mg PO HS 02/26/19 02/15/25 albuterol sulfate 90 mcg/actuation 2 puff inhalation Q4H PRN 03/31/19 02/15/25 aerosol inhaler Shortness Of Breath Or Wheezing ondansetron HCl 8 mg tablet 8 mg PO Q8H PRN Nausea 05/29/20 02/15/25 fluticasone fur. 200 mcg-umeclid 1 inh inhalation DAILY 03/02/22 02/15/25 62.5 mcg-vilant 25 mcg inhalat.powder (Trelegy Ellipta) propranolol 20 mg tablet 20 mg PO AMHS 03/02/22 02/15/25 furosemide 40 mg tablet (Lasix) 40 mg PO DAILY PRN Edema 03/26/22 02/15/25 bupropion HCl 300 mg 24 hr tablet, 300 mg PO QAM 12/24/23 02/15/25 extended release (Wellbutrin XL) gabapentin 300 mg capsule 0 mg PO TID 12/24/23 02/15/25 nystatin 100,000 unit/gram topical 1 applic topical TID PRN as needed 12/24/23 02/15/25 powder (Klayesta) tizanidine 2 mg tablet 2 mg PO Q6H PRN Pain 04/09/24 02/15/25 magnesium 200 mg tablet 200 mg PO QAM 05/16/24 02/15/25 cyanocobalamin (vitamin B-12) 1,000 mcg PO QAM 09/07/24 02/15/25 1,000 mcg tablet (Vitamin B-12) oxycodone 10 mg tablet 10 mg PO Q4H PRN Severe Pain 09/07/24 02/15/25 (Scale Score 7-10) pramipexole 1 mg tablet 1 mg PO TID 09/07/24 02/15/25 albuterol sulfate 0.63 mg/3 mL 0.63 mg inhalation Q6H PRN Wheezing 10/24/24 02/15/25 solution for nebulization dexamethasone 4 mg tablet 4 mg PO DIRECTED PRN PRIOR TO 12/21/24 02/15/25 CHEMO folic acid 1 mg tablet 1 mg PO DAILY 12/21/24 02/15/25 morphine 15 mg tablet,extended 0 mg PO BID 12/21/24 02/15/25 release pantoprazole 40 mg tablet,delayed 40 mg PO DAILY PRN Heartburn 12/21/24 02/15/25 release prochlorperazine maleate 10 mg 10 mg PO Q6H PRN NAUSEA/VOMITING 12/21/24 02/15/25 tablet valacyclovir 1 gram tablet 2,000 mg PO BID PRN COLD SORES 12/21/24 02/15/25 (Valtrex) NEEDED Previous Rx's Medication Instructions Recorded potassium chloride 10 mEq 20 meq (2 x 10 mEq) PO DAILY #6 12/22/24 capsule,extended release caps Results & Data (ED) Vital Signs Vital Signs - 24 hr 02/15/25 10:41 02/15/25 11:02 02/15/25 11:02 Temperature 36.1 C L Temperature Source Temporal Artery Scan Pulse Rate 72 Pulse Rate [Left Finger] Pulse Rate from SpO2 Sensor Respiratory Rate 20 Respiratory Effort / Characteristics Non-Labored Spontaneous Respiratory Depth Normal Blood Pressure 84/56 L 109/57 L 109/57 L Blood Pressure [Right Arm] Blood Pressure Mean 65 62 62 Blood Pressure Mean [Right Arm] Pulse Oximetry 98 Oxygen Delivery Method Nasal Cannula Oxygen Flow Rate 3 Sepsis Recent Fever Within 48 Hours No Sepsis New/Unexplained Change in Mental Status N/A Sepsis Action Taken by Nursing No Action Required 02/15/25 11:02 02/15/25 11:05 02/15/25 11:11 Temperature Temperature Source Pulse Rate 71 67 Pulse Rate [Left Finger] Pulse Rate from SpO2 Sensor 68 66 Respiratory Rate 18 14 Respiratory Effort / Characteristics Respiratory Depth Blood Pressure 109/57 L Blood Pressure [Right Arm] Blood Pressure Mean 62 Blood Pressure Mean [Right Arm] Pulse Oximetry 100 92 Oxygen Delivery Method Oxygen Flow Rate Sepsis Recent Fever Within 48 Hours Sepsis New/Unexplained Change in Mental Status Sepsis Action Taken by Nursing 02/15/25 11:15 02/15/25 11:15 02/15/25 11:15 Temperature Temperature Source Pulse Rate 73 Pulse Rate [Left Finger] 71 Pulse Rate from SpO2 Sensor Respiratory Rate 18 Respiratory Effort / Characteristics Respiratory Depth Blood Pressure Blood Pressure [Right Arm] 101/58 L Blood Pressure Mean Blood Pressure Mean [Right Arm] 72 Pulse Oximetry 98 97 Oxygen Delivery Method Nasal Cannula Nasal Cannula Nasal Cannula Oxygen Flow Rate 3 3 3 Sepsis Recent Fever Within 48 Hours Sepsis New/Unexplained Change in Mental Status Sepsis Action Taken by Nursing 02/15/25 11:20 02/15/25 11:20 02/15/25 11:32 Temperature Temperature Source Pulse Rate 68 69 67 Pulse Rate [Left Finger] Pulse Rate from SpO2 Sensor 68 67 Respiratory Rate 23 15 Respiratory Effort / Characteristics Respiratory Depth Blood Pressure Blood Pressure [Right Arm] Blood Pressure Mean Blood Pressure Mean [Right Arm] Pulse Oximetry 95 100 Oxygen Delivery Method Oxygen Flow Rate Sepsis Recent Fever Within 48 Hours Sepsis New/Unexplained Change in Mental Status Sepsis Action Taken by Nursing 02/15/25 11:38 02/15/25 11:40 02/15/25 11:40 Temperature Temperature Source Pulse Rate 76 Pulse Rate [Left Finger] Pulse Rate from SpO2 Sensor 67 Respiratory Rate 21 Respiratory Effort / Characteristics Respiratory Depth Blood Pressure 101/58 L 101/58 L Blood Pressure [Right Arm] Blood Pressure Mean 68 68 Blood Pressure Mean [Right Arm] Pulse Oximetry 96 Oxygen Delivery Method Oxygen Flow Rate Sepsis Recent Fever Within 48 Hours Sepsis New/Unexplained Change in Mental Status Sepsis Action Taken by Nursing 02/15/25 11:40 02/15/25 11:40 02/15/25 11:40 Temperature Temperature Source Pulse Rate Pulse Rate [Left Finger] Pulse Rate from SpO2 Sensor Respiratory Rate Respiratory Effort / Characteristics Respiratory Depth Blood Pressure 101/58 L 101/58 L 101/58 L Blood Pressure [Right Arm] Blood Pressure Mean 68 68 68 Blood Pressure Mean [Right Arm] Pulse Oximetry Oxygen Delivery Method Oxygen Flow Rate Sepsis Recent Fever Within 48 Hours Sepsis New/Unexplained Change in Mental Status Sepsis Action Taken by Nursing 02/15/25 11:41 02/15/25 11:50 02/15/25 11:59 Temperature Temperature Source Pulse Rate 68 71 74 Pulse Rate [Left Finger] Pulse Rate from SpO2 Sensor 66 Respiratory Rate 10 L 11 L 22 Respiratory Effort / Characteristics Respiratory Depth Blood Pressure Blood Pressure [Right Arm] Blood Pressure Mean Blood Pressure Mean [Right Arm] Pulse Oximetry 98 Oxygen Delivery Method Oxygen Flow Rate Sepsis Recent Fever Within 48 Hours Sepsis New/Unexplained Change in Mental Status Sepsis Action Taken by Nursing 02/15/25 12:01 02/15/25 12:01 02/15/25 12:01 Temperature Temperature Source Pulse Rate Pulse Rate [Left Finger] Pulse Rate from SpO2 Sensor Respiratory Rate Respiratory Effort / Characteristics Respiratory Depth Blood Pressure 113/44 L 113/44 L 113/44 L Blood Pressure [Right Arm] Blood Pressure Mean 77 77 77 Blood Pressure Mean [Right Arm] Pulse Oximetry Oxygen Delivery Method Oxygen Flow Rate Sepsis Recent Fever Within 48 Hours Sepsis New/Unexplained Change in Mental Status Sepsis Action Taken by Nursing 02/15/25 12:01 02/15/25 12:01 02/15/25 12:26 Temperature Temperature Source Pulse Rate Pulse Rate [Left Finger] Pulse Rate from SpO2 Sensor Respiratory Rate 25 H Respiratory Effort / Characteristics Respiratory Depth Blood Pressure 113/44 L 113/44 L Blood Pressure [Right Arm] Blood Pressure Mean 77 77 Blood Pressure Mean [Right Arm] Pulse Oximetry Oxygen Delivery Method Oxygen Flow Rate Sepsis Recent Fever Within 48 Hours Sepsis New/Unexplained Change in Mental Status Sepsis Action Taken by Nursing 02/15/25 12:29 02/15/25 12:30 02/15/25 12:30 Temperature Temperature Source Pulse Rate 80 Pulse Rate [Left Finger] Pulse Rate from SpO2 Sensor 77 Respiratory Rate 19 Respiratory Effort / Characteristics Respiratory Depth Blood Pressure 86/60 L 86/60 L Blood Pressure [Right Arm] Blood Pressure Mean 68 68 Blood Pressure Mean [Right Arm] Pulse Oximetry 98 Oxygen Delivery Method Oxygen Flow Rate Sepsis Recent Fever Within 48 Hours Sepsis New/Unexplained Change in Mental Status Sepsis Action Taken by Nursing 02/15/25 12:30 02/15/25 12:30 02/15/25 12:30 Temperature Temperature Source Pulse Rate Pulse Rate [Left Finger] Pulse Rate from SpO2 Sensor Respiratory Rate Respiratory Effort / Characteristics Respiratory Depth Blood Pressure 86/60 L 86/60 L 86/60 L Blood Pressure [Right Arm] Blood Pressure Mean 68 68 68 Blood Pressure Mean [Right Arm] Pulse Oximetry Oxygen Delivery Method Oxygen Flow Rate Sepsis Recent Fever Within 48 Hours Sepsis New/Unexplained Change in Mental Status Sepsis Action Taken by Nursing 02/15/25 12:32 02/15/25 12:41 02/15/25 12:44 Temperature Temperature Source Pulse Rate 74 76 Pulse Rate [Left Finger] Pulse Rate from SpO2 Sensor 74 73 Respiratory Rate 15 28 H 12 Respiratory Effort / Characteristics Respiratory Depth Blood Pressure Blood Pressure [Right Arm] Blood Pressure Mean Blood Pressure Mean [Right Arm] Pulse Oximetry 100 94 Oxygen Delivery Method Oxygen Flow Rate Sepsis Recent Fever Within 48 Hours Sepsis New/Unexplained Change in Mental Status Sepsis Action Taken by Nursing 02/15/25 12:45 02/15/25 12:45 02/15/25 12:45 Temperature Temperature Source Pulse Rate Pulse Rate [Left Finger] Pulse Rate from SpO2 Sensor Respiratory Rate Respiratory Effort / Characteristics Respiratory Depth Blood Pressure 98/66 L 98/66 L 98/66 L Blood Pressure [Right Arm] Blood Pressure Mean 80 80 80 Blood Pressure Mean [Right Arm] Pulse Oximetry Oxygen Delivery Method Oxygen Flow Rate Sepsis Recent Fever Within 48 Hours Sepsis New/Unexplained Change in Mental Status Sepsis Action Taken by Nursing 02/15/25 12:45 02/15/25 12:45 02/15/25 12:57 Temperature Temperature Source Pulse Rate 71 Pulse Rate [Left Finger] Pulse Rate from SpO2 Sensor 70 Respiratory Rate 14 Respiratory Effort / Characteristics Respiratory Depth Blood Pressure 98/66 L 98/66 L Blood Pressure [Right Arm] Blood Pressure Mean 80 80 Blood Pressure Mean [Right Arm] Pulse Oximetry 97 Oxygen Delivery Method Oxygen Flow Rate Sepsis Recent Fever Within 48 Hours Sepsis New/Unexplained Change in Mental Status Sepsis Action Taken by Nursing 02/15/25 13:00 02/15/25 13:01 02/15/25 13:01 Temperature Temperature Source Pulse Rate 75 Pulse Rate [Left Finger] Pulse Rate from SpO2 Sensor 70 Respiratory Rate 18 Respiratory Effort / Characteristics Respiratory Depth Blood Pressure 108/39 L 108/39 L Blood Pressure [Right Arm] Blood Pressure Mean 79 79 Blood Pressure Mean [Right Arm] Pulse Oximetry 91 Oxygen Delivery Method Oxygen Flow Rate Sepsis Recent Fever Within 48 Hours Sepsis New/Unexplained Change in Mental Status Sepsis Action Taken by Nursing 02/15/25 13:01 02/15/25 13:01 02/15/25 13:03 Temperature Temperature Source Pulse Rate 69 Pulse Rate [Left Finger] Pulse Rate from SpO2 Sensor 69 Respiratory Rate 22 Respiratory Effort / Characteristics Respiratory Depth Blood Pressure 108/39 L 108/39 L Blood Pressure [Right Arm] Blood Pressure Mean 79 79 Blood Pressure Mean [Right Arm] Pulse Oximetry 97 Oxygen Delivery Method Oxygen Flow Rate Sepsis Recent Fever Within 48 Hours Sepsis New/Unexplained Change in Mental Status Sepsis Action Taken by Nursing 02/15/25 14:15 02/15/25 14:21 02/15/25 14:30 Temperature Temperature Source Pulse Rate 72 71 71 Pulse Rate [Left Finger] Pulse Rate from SpO2 Sensor Respiratory Rate 14 19 25 H Respiratory Effort / Characteristics Respiratory Depth Blood Pressure Blood Pressure [Right Arm] Blood Pressure Mean Blood Pressure Mean [Right Arm] Pulse Oximetry Oxygen Delivery Method Oxygen Flow Rate Sepsis Recent Fever Within 48 Hours Sepsis New/Unexplained Change in Mental Status Sepsis Action Taken by Nursing 02/15/25 14:42 02/15/25 14:51 Temperature Temperature Source Pulse Rate 70 86 Pulse Rate [Left Finger] Pulse Rate from SpO2 Sensor Respiratory Rate 20 15 Respiratory Effort / Characteristics Respiratory Depth Blood Pressure Blood Pressure [Right Arm] Blood Pressure Mean Blood Pressure Mean [Right Arm] Pulse Oximetry Oxygen Delivery Method Oxygen Flow Rate Sepsis Recent Fever Within 48 Hours Sepsis New/Unexplained Change in Mental Status Sepsis Action Taken by Nursing Laboratory Data 02/16/25 06:08 02/16/25 06:08 Lab Results 02/15/25 02/15/25 02/15/25 Range/Units 11:11 11:24 12:54 WBC 6.84 (4.8-10.8) K/ul RBC 2.34 L (4.20-5.40) M/uL Hgb 7.8 L (12.0-16.0) g/dl Hct 21.6 L (37.0-47.0) % MCV 92.3 (80.0-100.0) fL MCH 33.3 (25.0-34.0) pg MCHC 36.1 H (32.0-36.0) g/dL RDW Std Deviation 69.0 H (36.4-46.3) fL RDW Coeff of Chelle 21.2 H (11.5-14.5) % Plt Count 195 (130-400) K/uL MPV 9.1 L (9.4-12.4) fL Immature Gran % (Auto) 5.8 % Neut % (Auto) 73.5 % Lymph % (Auto) 9.2 % Donley % (Auto) 11.0 % Eos % (Auto) 0.1 % Baso % (Auto) 0.4 % Neut # (Auto) 5.02 (1.40-6.50) K/uL Lymph # (Auto) 0.63 L (1.20-3.40) K/uL Donley # (Auto) 0.75 H (0.11-0.59) K/uL Eos # (Auto) 0.01 (0.00-0.50) K/uL Baso # (Auto) 0.03 (0.00-0.20) K/uL Immature Gran # (Auto) 0.40 H (0.01-0.20) K/uL Polychromasia 1+ Anisocytosis Present Sodium 126 L (136-145) mmol/L Potassium 2.9 L (3.5-5.1) mmol/L Chloride 81 L (98-107) mmol/L Carbon Dioxide 35 H (21-32) mmol/L Anion Gap 10 (3-11) BUN 19 (6-23) mg/dl Creatinine 1.51 H (0.6-1.2) mg/dl Est Cr Clr Drug Dosing 29.1 ml/min eGFR 37.19 BUN/Creatinine Ratio 12.6 (10-20) Glucose 153 H (70-99(Fasting)) mg/dl Osmolality 263 L (280-300) mOsm/kg Calcium 9.1 (8.6-10.3) mg/dl Magnesium 1.3 L (1.7-2.4) mg/dl Total Bilirubin 0.4 (0.2-1.0) mg/dl AST 18 (13-39) U/L ALT 13 (7-52) U/L Alkaline Phosphatase 62 (34-104) U/L Troponin I High Sens 14.8 H (0-14) pg/ml Total Protein 6.7 (6.0-8.3) gm/dl Albumin 3.9 (3.4-5.0) gm/dl Globulin 2.8 (2.5-4.0) gm/dl Albumin/Globulin Ratio 1.4 (0.9-2) Lipase 12 (11-82) U/L Urine Color Yellow Urine Appearance Clear (Clear) Urine pH 6.5 (4.5-7.5) Ur Specific [place] 1.004 (1.000-1.030) Urine Protein Negative (Negative) Urine Glucose (UA) Negative (Negative) Urine Ketones Negative (Negative) Urine Blood Negative (Negative) Urine Nitrite Negative (Negative) Urine Bilirubin Negative (Negative) Urine Urobilinogen Negative (Negative) Ur Leukocyte Esterase Negative (Negative) Urine Osmolality (500-800) mOsm/kg Ur Random Sodium mmol/L Urine Comment Adenovirus (PCR) Not Detected (NotDetected) B. pertussis DNA (PCR) Not Detected (NotDetected) B.parapertussis DNA PCR Not Detected (NotDetected) C. pneumoniae DNA (PCR) Not Detected (NotDetected) Coronavirus OC43 (PCR) Not Detected (NotDetected) Coronavirus HKU1 (PCR) Not Detected (NotDetected) Coronavirus 229E (PCR) Not Detected (NotDetected) SARS-CoV-2 (PCR) Not Detected (NotDetected) Coronavirus NL63 (PCR) Not Detected (NotDetected) Human Metapneumovir PCR Not Detected (NotDetected) Influenza Type A (PCR) Not Detected (NotDetected) Influenza Type B (PCR) Not Detected (NotDetected) M. pneumoniae (PCR) Not Detected (NotDetected) Parainfluenza 1 (PCR) Not Detected (NotDetected) Parainfluenza 2 (PCR) Not Detected (NotDetected) Parainfluenza 3 (PCR) Not Detected (NotDetected) Parainfluenza 4 (PCR) Not Detected (NotDetected) RSV (PCR) Not Detected (NotDetected) Entero/Rhino (PCR) Not Detected (NotDetected) 02/15/25 Range/Units 14:17 WBC (4.8-10.8) K/ul RBC (4.20-5.40) M/uL Hgb (12.0-16.0) g/dl Hct (37.0-47.0) % MCV (80.0-100.0) fL MCH (25.0-34.0) pg MCHC (32.0-36.0) g/dL RDW Std Deviation (36.4-46.3) fL RDW Coeff of Chelle (11.5-14.5) % Plt Count (130-400) K/uL MPV (9.4-12.4) fL Immature Gran % (Auto) % Neut % (Auto) % Lymph % (Auto) % Donley % (Auto) % Eos % (Auto) % Baso % (Auto) % Neut # (Auto) (1.40-6.50) K/uL Lymph # (Auto) (1.20-3.40) K/uL Donley # (Auto) (0.11-0.59) K/uL Eos # (Auto) (0.00-0.50) K/uL Baso # (Auto) (0.00-0.20) K/uL Immature Gran # (Auto) (0.01-0.20) K/uL Polychromasia Anisocytosis Sodium (136-145) mmol/L Potassium (3.5-5.1) mmol/L Chloride (98-107) mmol/L Carbon Dioxide (21-32) mmol/L Anion Gap (3-11) BUN (6-23) mg/dl Creatinine (0.6-1.2) mg/dl Est Cr Clr Drug Dosing ml/min eGFR BUN/Creatinine Ratio (10-20) Glucose (70-99(Fasting)) mg/dl Osmolality (280-300) mOsm/kg Calcium (8.6-10.3) mg/dl Magnesium (1.7-2.4) mg/dl Total Bilirubin (0.2-1.0) mg/dl AST (13-39) U/L ALT (7-52) U/L Alkaline Phosphatase (34-104) U/L Troponin I High Sens (0-14) pg/ml Total Protein (6.0-8.3) gm/dl Albumin (3.4-5.0) gm/dl Globulin (2.5-4.0) gm/dl Albumin/Globulin Ratio (0.9-2) Lipase (11-82) U/L Urine Color Urine Appearance (Clear) Urine pH (4.5-7.5) Ur Specific [place] (1.000-1.030) Urine Protein (Negative) Urine Glucose (UA) (Negative) Urine Ketones (Negative) Urine Blood (Negative) Urine Nitrite (Negative) Urine Bilirubin (Negative) Urine Urobilinogen (Negative) Ur Leukocyte Esterase (Negative) Urine Osmolality 82 L (500-800) mOsm/kg Ur Random Sodium < 10 mmol/L Urine Comment Adenovirus (PCR) (NotDetected) B. pertussis DNA (PCR) (NotDetected) B.parapertussis DNA PCR (NotDetected) C. pneumoniae DNA (PCR) (NotDetected) Coronavirus OC43 (PCR) (NotDetected) Coronavirus HKU1 (PCR) (NotDetected) Coronavirus 229E (PCR) (NotDetected) SARS-CoV-2 (PCR) (NotDetected) Coronavirus NL63 (PCR) (NotDetected) Human Metapneumovir PCR (NotDetected) Influenza Type A (PCR) (NotDetected) Influenza Type B (PCR) (NotDetected) M. pneumoniae (PCR) (NotDetected) Parainfluenza 1 (PCR) (NotDetected) Parainfluenza 2 (PCR) (NotDetected) Parainfluenza 3 (PCR) (NotDetected) Parainfluenza 4 (PCR) (NotDetected) RSV (PCR) (NotDetected) Entero/Rhino (PCR) (NotDetected) Administered Medications Atorvastatin Calcium (Atorvastatin 20 Mg Tab) 20 mg PO DAILY [facility] Stop: 03/18/25 08:59 Last Admin: 02/16/25 08:04 Dose: 20 mg Documented By: EVANGELISTA Bupropion HCl (Bupropion Xl 300 Mg Tabcr) 300 mg PO QAM [facility] Stop: 03/18/25 08:59 Last Admin: 02/16/25 08:04 Dose: 300 mg Documented By: EVANGELISTA Fluticasone Furoate (Fluticasone Furoate 200mcg 14 Puffs/Inhaler) 1 puffs INH DAILY [facility] Stop: 03/18/25 08:59 Last Admin: 02/16/25 08:03 Dose: 1 puffs Documented By: EVANGELISTA Folic Acid (Folic Acid 1 Mg Tab) 1 mg PO DAILY [facility] Stop: 03/18/25 08:59 Last Admin: 02/16/25 08:03 Dose: 1 mg Documented By: EVANGELISTA Gabapentin (Gabapentin 300 Mg Cap) 300 mg PO TID [facility] Stop: 03/17/25 20:59 Last Admin: 02/16/25 08:04 Dose: 300 mg Documented By: Admin: 02/15/25 20:07 Dose: 300 mg Documented By: STEPHANIE Guaifenesin (Guaifenesin 600 Mg Tabcr) 1,200 mg PO Q12 [facility] Stop: 03/17/25 20:59 Last Admin: 02/16/25 08:06 Dose: 1,200 mg Documented By: Admin: 02/15/25 21:32 Dose: 1,200 mg Documented By: MARILEE Sodium Chloride (Nss) 1,000 mls @ 125 mls/hr IV .Q8H [facility] Stop: 02/16/25 17:14 Last Admin: 02/16/25 01:22 Dose: 125 mls/hr Documented By: Infusion: 02/15/25 20:44 Dose: Infused Documented By: Admin: 02/15/25 12:44 Dose: 125 mls/hr Documented By: natalie Insulin Aspart (Insulin Aspart Per Unit Charge) 0 units SC ACHS [facility] Stop: 03/17/25 17:58 Last Admin: 02/15/25 20:07 Dose: Not Given Documented By: Admin: 02/15/25 19:32 Dose: Not Given Documented By: STEPHANIE Morphine Sulfate (Morphine Sulfate Cr 15 Mg Tabcr) 15 mg PO BID [facility] Stop: 03/01/25 20:59 Last Admin: 02/15/25 20:06 Dose: 15 mg Documented By: STEPHANIE Ondansetron HCl (Ondansetron Inj 2 Mg/Ml 2 Ml Vial) 4 mg IV Q6H PRN PRN Reason: Nausea/Vomiting Stop: 03/17/25 17:58 Last Admin: 02/15/25 20:11 Dose: 4 mg Documented By: STEPHANIE Oxycodone HCl (Oxycodone Hcl Ir 5 Mg Tab (Immediate Release)) 10 mg PO Q4H PRN PRN Reason: Severe Pain (Scale Score 7-10) Stop: 03/01/25 17:58 Last Admin: 02/15/25 20:06 Dose: 10 mg Documented By: STEPHANIE Potassium Chloride (Potassium Chloride 10 Meq Tabcr) 20 meq PO DAILY [facility] Stop: 03/18/25 08:59 Last Admin: 02/16/25 08:14 Dose: 20 meq Documented By: EVANGELISTA Pramipexole Dihydrochloride (Pramipexole Dihydrochlo 0.5 Mg Tab) 1 mg PO TID [facility] Stop: 03/17/25 20:59 Last Admin: 02/16/25 08:04 Dose: 1 mg Documented By: Admin: 02/15/25 20:06 Dose: 1 mg Documented By: STEPHANIE Propranolol HCl (Propranolol Hcl 20 Mg Tab) 20 mg PO AMHS [facility] Stop: 03/17/25 20:59 Last Admin: 02/15/25 20:06 Dose: 20 mg Documented By: STEPHANIE Trazodone HCl (Trazodone Hcl 50 Mg Tab) 50 mg PO HS [facility] Stop: 03/17/25 20:59 Last Admin: 02/15/25 20:07 Dose: 50 mg Documented By: STEPHANIE Umeclidinium/Vilanterol (Umeclidinium/Vilanterol 62.5/25mcg 7 Puffs/Inhaler) 1 puffs INH DAILY [facility] Stop: 03/18/25 08:59 Last Admin: 02/16/25 08:06 Dose: 1 puffs Documented By: MTM Discontinued Medications Sodium Chloride (Nss) 1,000 mls @ 999 mls/hr IV .Q1H1M STA Stop: 02/15/25 12:00 Last Infusion: 02/15/25 13:33 Dose: Infused Documented By: natalie Admin: 02/15/25 11:17 Dose: 999 mls/hr Documented By: natalie Magnesium Sulfate/Dextrose (Magnesium Sulfate / D5w) 1 gm in 100 mls @ 100 mls/hr IV NOW STA Stop: 02/15/25 12:59 Last Infusion: 02/15/25 13:58 Dose: Infused Documented By: natalie Admin: 02/15/25 12:43 Dose: 100 mls/hr Documented By: natalie Potassium Chloride ([place] / Wtr) 10 meq in 100 mls @ 100 mls/hr IV Q1H [facility] Stop: 02/15/25 14:29 Last Infusion: 02/15/25 15:32 Dose: Infused Documented By: octavia Admin: 02/15/25 14:04 Dose: 100 mls/hr Documented By: natalie Infusion: 02/15/25 13:58 Dose: Infused Documented By: natalie Admin: 02/15/25 12:43 Dose: 100 mls/hr Documented By: natalie Magnesium Sulfate/Dextrose (Magnesium Sulfate / D5w) 1 gm in 100 mls @ 100 mls/hr IV Q1H [facility] Stop: 02/15/25 18:14 Last Infusion: 02/15/25 19:09 Dose: Infused Documented By: Admin: 02/15/25 17:53 Dose: 100 mls/hr Documented By: Infusion: 02/15/25 17:50 Dose: Infused Documented By: Admin: 02/15/25 16:50 Dose: 100 mls/hr Documented By: octavia Ioversol (Optiray 320 100ml) 94 ml IV ONCE ONE Stop: 02/15/25 20:54 Last Admin: 02/15/25 20:54 Dose: 94 ml Documented By: RAMON Potassium Chloride (Potassium Chloride Crtab 20 Meq Tabcr) 40 meq PO NOW STA Stop: 02/15/25 16:06 Last Admin: 02/15/25 16:56 Dose: Not Given Documented By: octavia Potassium Chloride (Potassium Chloride Pwd 20 Meq Pack) 20 meq PO NOW STA Stop: 02/15/25 16:38 Last Admin: 02/15/25 16:50 Dose: 20 meq Documented By: octavia Potassium Chloride (Potassium Chloride Crtab 20 Meq Tabcr) 40 meq PO NOW STA Stop: 02/16/25 01:26 Last Admin: 02/16/25 02:14 Dose: 40 meq Documented By: ACO Imaging Data Radiologist's Impression: Head CTA 02/15/25 11:00 CT angio head wo/w CLINICAL HISTORY: 69 years-old Female with dizziness, lightheaded. Acute dizziness COMPARISON STUDY: CTA neck of same day, head CT 01/15/2025 TECHNIQUE: Unenhanced axial CT scan of the brain is performed. Subsequently, following the IV administration of 112 cc of Optiray, CT angiogram of the brain was performed from the skull base to the vertex. Images are reviewed in the axial, sagittal, and coronal planes. 3-D MIPS images are created and assessed. IV contrast was administered without complication. All measurements were obtained according to NASCET criteria. A dose lowering technique was utilized adhering to the principles of ALARA. CT DOSE: 1098.58 mGy.cm FINDINGS: CT BRAIN: There is no acute intracranial hemorrhage, midline shift, hydrocephalus, intracranial mass, territorial ischemia or abnormal extra-axial collections. No abnormal intra-axial or extra-axial enhancement. Prior bilateral lens repair. Mastoid air cells and middle ear cavities are clear. No calvarial fracture. Paranasal sinuses are clear. CT ANGIOGRAM OF THE BRAIN: The imaged bilateral internal carotid arteries are patent. The bilateral anterior and middle cerebral arteries are also patent. Calcified plaque of the V4 segment left vertebral artery causes mild stenosis. No aneurysm, dissection, high-grade stenosis or arterial occlusion. Basilar and posterior cerebral arteries are patent. Dural sinuses appear patent. IMPRESSION: 1. No acute intracranial abnormality. 2. Unremarkable CTA of the head. ACT 112: Negative or not required by law. The above report was generated using voice recognition software. It may contain grammatical, syntax or spelling errors. Electronically signed by: Landon Shaw M.D. 02/15/2025 12:37 PM Neck CTA 02/15/25 11:00 CT ANGIOGRAM OF THE NECK CLINICAL HISTORY: Dizziness. Lightheaded. COMPARISON STUDY: CT of the neck dated 10/01/2019. Chest CT dated 10/27/2024. TECHNIQUE: Following the IV administration of 112 of Optiray 320, CT angiogram of the neck was performed from the aortic arch to the skull base. Images are reviewed in the axial, sagittal, and coronal planes. 3-D MIPS images are created and assessed. IV contrast was administered without complication. All measurements were calculated based on NASCET criteria. A dose lowering technique was utilized adhering to the principles of ALARA. FINDINGS: Thoracic aorta: There is atherosclerotic calcification of the thoracic aorta. Visualized portions of the thoracic aorta are normal in caliber. The aortic arch demonstrates standard 3-vessel anatomy. Right carotid arterial system: The right common carotid artery is widely patent, as on the right internal and external carotid arteries. Mild calcified plaque is seen in the carotid bulb. Left carotid arterial system: The left common carotid artery is widely patent, as are the left internal and external carotid arteries. Calcified plaque is seen in the carotid bulb. Vertebral arteries: Widely patent bilaterally noting left-sided dominance. Subclavian arteries: Widely patent bilaterally. Intracranial vasculature: The visualized intracranial vessels at the skull base are patent. Jugular veins: Patent bilaterally. Brain parenchyma: The visualized brain parenchyma the skull base is within normal limits. Lung apices: Emphysematous change is noted. A 7 mm irregular nodular opacity at the right apex on image #116 is new from 2019. There is also a partially imaged left upper lobe nodule on image #1. These were present on the 10/27/[address] Soft tissues: The visualized pharyngeal soft tissues are normal in appearance noting angiographic phase technique. The oropharyngeal airway appears widely patent. The thyroid gland is enlarged and heterogeneous, typical for goiter. A calcified sialolith is seen in the left parotid gland. The salivary glands are otherwise normal in appearance. No cervical lymphadenopathy is seen. Skeletal structures: The skeletal structures are osteopenic. The visualized calvarium at the skull base appears intact. The imaged cervical spine is maintained noting multilevel spondylosis. Sinuses and mastoids: The visualized paranasal sinuses are clear. There is a small right mastoid effusion. The left mastoid air cells are well pneumatized. IMPRESSION: 1. Unremarkable CT angiogram of the neck. 2. Emphysema. 3. Bilateral upper lobe pulmonary nodules are similar to the 10/27/[address] The right apical nodule is new from 2019. A follow-up chest CT in 6 months time is recommended for evaluation. ACT 112: Negative or not required by law. Electronically signed by: Miguel Adair M.D. 02/15/2025 12:59 PM Chest X-Ray 02/15/25 11:01 XR chest 2V PA/lateral CLINICAL HISTORY: Chest pain, nonspecific COMPARISON STUDY: 01/25/2025 FINDINGS: Heart size and pulmonary vasculature are normal. Stable minimal stranding at the left mid upper lung. There is interval minimal stranding at the left lung base, likely atelectasis. No other consolidation or pleural effusion. No pneumothorax. IMPRESSION: Likely minimal atelectasis left lung base. No other acute findings seen. ACT 112: Negative or not required by law. Electronically signed by: Bo Swann M.D. 02/15/2025 1:34 PM Discharge Plan Visit Data Chief Complaint: Dizziness Stated Complaint: DIZZY, BREATHING, PAIN ED Provider: Unique Jones ED Midlevel Provider: Alice Casper Discharge Problem: Hyponatremia, Hypokalemia, Hypomagnesemia, JOSEPHINE (acute kidney injury), Elevated troponin I level Patient Disposition: Admitted As Inpatient Condition: Good Discharge Instructions Interventions: ED Discharge Assessment Last Done: 02/15/25 18:00
[2025-02-15] MEDS: SODIUM CHLORIDE 0.9% 1,000 ML IV STA (11:17)
[2025-02-15 11:26] LABS: Hematocrit (blood only) 21.6 % (37.0-47.0); Hemoglobin 7.8 g/dl (12.0-16.0); Mean Corpuscular Hemoglobin 33.3 pg (25.0-34.0); Mean Corpuscular Volume 92.3 fL (80.0-100.0); Platelet Count 195 K/uL (130-400); RDW Standard Deviation 69.0 fL (36.4-46.3); Red Blood Count 2.34 M/uL (4.20-5.40); White Blood Count 6.84 K/ul (4.8-10.8)
[2025-02-15 11:45] LABS: Anisocytosis Present; Immature Granulocytes # (auto) 0.40 K/uL (0.01-0.20); Immature Granulocytes % (auto) 5.8 %; Polychromasia 1+
[2025-02-15 11:50] LABS: Alanine Aminotransferase 13.0 U/L (7-52); Albumin Globulin Ratio 1.4 (0.9-2); Albumin Level 3.9 gm/dl (3.4-5.0); Alkaline Phosphatase 62.0 U/L (34-104); Anion Gap 10.0 (3-11); Bilirubin,Total 0.4 mg/dl (0.2-1.0); Blood Urea Nitrogen 19.0 mg/dl (6-23); Calcium 9.1 mg/dl (8.6-10.3); Carbon Dioxide 35.0 mmol/L (21-32); Chloride 81.0 mmol/L (98-107); Creatinine Clr Calc Pharmacy 29.1 ml/min; Globulin 2.8 gm/dl (2.5-4.0); Glucose 153.0 mg/dl (70-99(Fasting)); Lipase 12.0 U/L (11-82); Magnesium 1.3 mg/dl (1.7-2.4); Potassium 2.9 mmol/L (3.5-5.1); Sodium 126.0 mmol/L (136-145); Total Protein 6.7 gm/dl (6.0-8.3)
--- NOTE | 2025-02-15 12:25 | Emergency Department Note ---
ED Visit Note I was consulted by the Advanced Practice Provider, CEE Trinh. I performed a substantive portion of the visit. This includes aspects of: History: Patient is a 69-year-old female presenting with feeling ill for the last month. Patient wears 3 L nasal cannula at all times. She reports that she was post receiving chemotherapy this week but did not because of her low potassium and sodium levels. She states that she been having flulike symptoms for the last month. Reports feeling dizzy and lightheaded for the last several days. MDM: Laboratory workup in the emergency department shows anemia. She is noted to have a slight JOSEPHINE with a creatinine of 1.5. Noted to be hypomagnesemic at 1.3. Also hypokalemic at 2.9. She was given IV potassium and magnesium replacement. Will be admitted to hospitalist service. .
[2025-02-15 12:37] LABS: Chlamydia pneumoniae PCR Not Detected (NotDetected); Coronavirus 229E PCR Not Detected (NotDetected); Coronavirus CoV-2 (COVID19)PCR Not Detected (NotDetected); Coronavirus HKU1 PCR Not Detected (NotDetected); Coronavirus NL63 PCR Not Detected (NotDetected); Coronavirus OC43PCR Not Detected (NotDetected); Human Metapneumovirus PCR Not Detected (NotDetected); Parainfluenza Virus 1 PCR Not Detected (NotDetected); Parainfluenza Virus 2 PCR Not Detected (NotDetected); Parainfluenza Virus 3 PCR Not Detected (NotDetected); Parainfluenza Virus 4 PCR Not Detected (NotDetected); Respiratory Syncytial VirusPCR Not Detected (NotDetected); Rhinovirus/Enterovirus PCR Not Detected (NotDetected)
--- NOTE | 2025-02-15 12:40 | CT Scan Report ---
CT angio head wo/w CLINICAL HISTORY: 69 years-old Female with dizziness, lightheaded. Acute dizziness COMPARISON STUDY: CTA neck of same day, head CT 01/15/2025 TECHNIQUE: Unenhanced axial CT scan of the brain is performed. Subsequently, following the IV administration of 112 cc of Optiray, CT angiogram of the brain was performed from the skull base to the vertex. Images are reviewed in the axial, sagi ttal, and coronal planes. 3-D MIPS images are created and assessed. IV contrast was administered with out complication. All measurements were obtained according to NASCET criteria. A dose lowering techni que was utilized adhering to the principles of ALARA. CT DOSE: 1098.58 mGy.cm FINDINGS: CT BRAIN: There is no acute intracranial hemorrhage, midline shift, hydrocephalus, intracranial mass, territori al ischemia or abnormal extra-axial collections. No abnormal intra-axial or extra-axial enhancement. Prior bilateral lens repair. Mastoid air cells and middle ear cavities are clear. No calvarial fract ure. Paranasal sinuses are clear. CT ANGIOGRAM OF THE BRAIN: The imaged bilateral internal carotid arteries are patent. The bilateral anterior and middle cerebral arteries are also patent. Calcified plaque of the V4 segment left vertebral artery causes mild steno sis. No aneurysm, dissection, high-grade stenosis or arterial occlusion. Basilar and posterior cerebr al arteries are patent. Dural sinuses appear patent. IMPRESSION: 1. No acute intracranial abnormality. 2. Unremarkable CTA of the head. ACT 112: Negative or not required by law. The above report was generated using voice recognition software. It may contain grammatical, syntax o r spelling errors. Electronically signed by: Landon Shaw M.D. 02/15/2025 12:37 PM
[2025-02-15] MEDS: POTASSIUM CHLORIDE / WTR 10 MEQ/100 ML PLCT IV SCH (12:43)
[2025-02-15] MEDS: MAGNESIUM SULFATE / D5W 1 GM/100 ML BAG IV STA (12:43)
[2025-02-15] MEDS: SODIUM CHLORIDE 0.9% 1,000 ML IV SCH (12:44)
--- NOTE | 2025-02-15 13:01 | CT Scan Report ---
CT ANGIOGRAM OF THE NECK CLINICAL HISTORY: Dizziness. Lightheaded. COMPARISON STUDY: CT of the neck dated 10/01/2019. Chest CT dated 10/27/2024. TECHNIQUE: Following the IV administration of 112 of Optiray 320, CT angiogram of the neck was perfor med from the aortic arch to the skull base. Images are reviewed in the axial, sagittal, and coronal p lanes. 3-D MIPS images are created and assessed. IV contrast was administered without complication. A ll measurements were calculated based on NASCET criteria. A dose lowering technique was utilized adh ering to the principles of ALARA. FINDINGS: Thoracic aorta: There is atherosclerotic calcification of the thoracic aorta. Visualized portions of the thoracic aorta are normal in caliber. The aortic arch demonstrates standard 3-vessel anatomy. Right carotid arterial system: The right common carotid artery is widely patent, as on the right inte rnal and external carotid arteries. Mild calcified plaque is seen in the carotid bulb. Left carotid arterial system: The left common carotid artery is widely patent, as are the left [employer] intern[employer] al and external carotid arteries. Calcified plaque is seen in the carotid bulb. Vertebral arteries: Widely patent bilaterally noting left-sided dominance. Subclavian arteries: Widely patent bilaterally. Intracranial vasculature: The visualized intracranial vessels at the skull base are patent. Jugular veins: Patent bilaterally. Brain parenchyma: The visualized brain parenchyma the skull base is within normal limits. Lung apices: Emphysematous change is noted. A 7 mm irregular nodular opacity at the right apex on graham ge #116 is new from 2020. There is also a partially imaged left upper lobe nodule on image #1. These were present on the 10/27/[address] Soft tissues: The visualized pharyngeal soft tissues are normal in appearance noting angiographic pha se technique. The oropharyngeal airway appears widely patent. The thyroid gland is enlarged and heter ogeneous, typical for goiter. A calcified sialolith is seen in the left parotid gland. The salivary g lands are otherwise normal in appearance. No cervical lymphadenopathy is seen. Skeletal structures: The skeletal structures are osteopenic. The visualized calvarium at the skull ba se appears intact. The imaged cervical spine is maintained noting multilevel spondylosis. Sinuses and mastoids: The visualized paranasal sinuses are clear. There is a small right mastoid effu cam. The left mastoid air cells are well pneumatized. IMPRESSION: 1. Unremarkable CT angiogram of the neck. 2. Emphysema. 3. Bilateral upper lobe pulmonary nodules are similar to the 10/27/[address] The right apical nod ule is new from 2020. A follow-up chest CT in 6 months time is recommended for evaluation. ACT 112: Negative or not required by law. Electronically signed by: Miguel Adair M.D. 02/15/2025 12:59 PM
--- NOTE | 2025-02-15 13:35 | XRay Report ---
XR chest 2V PA/lateral CLINICAL HISTORY: Chest pain, nonspecific COMPARISON STUDY: 01/25/2025 FINDINGS: Heart size and pulmonary vasculature are normal. Stable minimal stranding at the left mid u pper lung. There is interval minimal stranding at the left lung base, likely atelectasis. No other co nsolidation or pleural effusion. No pneumothorax. IMPRESSION: Likely minimal atelectasis left lung base. No other acute findings seen. ACT 112: Negative or not required by law. Electronically signed by: Bo Swann M.D. 02/15/2025 1:34 PM
--- NOTE | 2025-02-15 14:23 | History & Physical Report ---
Date of Service February 15, 2025 Assessment & Plan (1) Chronic hypoxemic respiratory failure: (2) Acute hyponatremia: (3) Hypokalemia: (4) Hypomagnesemia: (5) Anemia: (6) Lung cancer: Plan This is a 69-year-old female with PMH of left upper lobe lung cancer (currently undergoing chemotherapy) who presented on 02/15 for generalized weakness and cold-like symptoms. Admitted for electrolyte abnormalities. #Hyponatremia Sodium low at 126 on arrival Hypochloremic at 81 Hypovolemic on clinical exam Suspected due to poor p.o. intake Ur osm, serum osm, and ur sodium ordered, pending NSS at 125mL/hr x 3 L overnight and will reassess #Hypokalemia K low at 2.9 on arrival K rider 10 mEq x 2 Patient declined pill form of potassium supplementation in the ED; potassium chloride powder 20 mg p.o. x 1 Continue daily potassium supplements AM BMP #Hypomagnesemia Magnesium low at 1.3 Magnesium sulfate 1 g IV x 3 Continue daily magnesium supplement AM Mag #Anemia Hgb 7.8 on arrival MCV WNL at 92 While no signs of active bleeding on physical exam, patient does report she has had nosebleeds x 1 week [employer] Suspect that chemotherapy may also contributory Trend H&H AM Fe panel, ferritin, vitamin B12, folate #Generalized weakness PT/OT evaluations appreciated Fall precautions #Diabetes Last A1c at 7.3% on 12/22/2024 Hold metformin SSI; with target BSG range 110-140mg/dL, CF 50, carb ratio 15 T2DM diet BSG ACHS Adjust regimen as needed AM A1c #Lung adenocarcinoma Last chemotherapy session was supposed to be on Monday 02/12, but was canceled due to electrolyte abnormalities and generalized weakness Continue current pain regimen: Morphine 15 mg p.o. BID Gabapentin 300 mg p.o. TID Oxycodone 10 mg p.o. q4h PRN Trazodone HS #Loss of appetite | anorexia In the setting of cancer/chemotherapy Dietitian consult appreciated #Chronic ileostomy Noted; daily ostomy care Monitor output #Tobacco abuse Continue to encourage cessation; patient declines nicotine patch at arrival #COPD | chronic hypoxic respiratory failure Patient is on continuous oxygen (3L NC) Continue Trelegy Ellipta formulary equivalent Disposition: Admit to [facility] telemetry VTE PPx: SCDs; patient is at high risk in the setting of malignancy, hold chemical DVT PPx for now in the setting of new worsening anemia History of Present Illness Chief Complaint: Generalized weakness, insomnia, cold-like symptoms, dizziness Primary Care Provider: Sukh Holman MD Mrs. Donis is a 69-year-old female with PMH of left upper lobe malignancy (currently undergoing chemotherapy), T2DM, SBO, tobacco abuse, and chronic hypoxic respiratory failure (on 3L NC continuous). She presented on 02/15 for worsening dizziness, fatigue, and cold-like symptoms (productive cough, and nasal congestion). Patient was supposed to undergo chemotherapy on Wednesday of this week, but this was canceled due to generalized fatigue and electrolyte abnormalities. She was then started on a potassium pill this past week, however her symptoms continually got worse. She has had difficulty sleeping, and reports she is experiencing both SOB at rest and with exertion. She is concerned that she has been having nosebleeds x 1 week. No hemoptysis. No burning with urination, blood in her urine, or blood in her ostomy output. Patient has been trying to drink lots of fluids at home, but reports she has no appetite. Poor p.o. intake, she reports that food just does not taste good anymore. She has noticed decreased output from her ileostomy. Patient lives with her former boyfriend (Bg) who is still 1 of her current caretakers. Patient took her regular morning medicine today; she manages her own medicine at home. Patient is a current everyday tobacco cigarette smoker (6 cigarettes/day). She declined nicotine patch on admission. Patient is mildly hypotensive at 108/39 at time admission; SpO2 97/3 L NC. ED course: K nikolaier 10MEq x 2 Magnesium sulfate 1 g IV x 1 NSS 1000 L IV x 1 ROS: Patient endorses generalized fatigue, dizziness with ambulation, change in taste, loss of appetite, poor PO output, decreased ostomy output, productive cough, congestion, SOB at rest and with exertion, mild chest pain, mild pleuritic CP, and nausea. Patient denies fever, chills, night-sweats, abdominal pain, vomiting, burning with urination, or blood in the urine/stool. Allergies Allergy/AdvReac Type Severity Reaction Status Date / Time adhesive AdvReac Intermediate ITCHY RASH Verified 12/21/24 16:48 Home Medications Medication Instructions Recorded Confirmed Type aspirin 81 mg tablet,delayed 81 mg PO QAM 02/26/19 02/15/25 History release atorvastatin 20 mg tablet 0 mg PO DAILY 02/26/19 02/15/25 History fluticasone propionate 50 2 spray intranasal QAM PRN Allergy 02/26/19 02/15/25 History mcg/actuation nasal Symptoms spray,suspension (Flonase Allergy Relief) metformin 1,000 mg tablet 0 mg PO BIDM 02/26/19 02/15/25 History trazodone 50 mg tablet 50 mg PO HS 02/26/19 02/15/25 History albuterol sulfate 90 mcg/actuation 2 puff inhalation Q4H PRN 03/31/19 02/15/25 History aerosol inhaler Shortness Of Breath Or Wheezing ondansetron HCl 8 mg tablet 8 mg PO Q8H PRN Nausea 05/29/20 02/15/25 History fluticasone fur. 200 mcg-umeclid 1 inh inhalation DAILY 03/02/22 02/15/25 History 62.5 mcg-vilant 25 mcg inhalat.powder (Trelegy Ellipta) propranolol 20 mg tablet 20 mg PO AMHS 03/02/22 02/15/25 History furosemide 40 mg tablet (Lasix) 40 mg PO DAILY PRN Edema 03/26/22 02/15/25 History bupropion HCl 300 mg 24 hr tablet, 300 mg PO QAM 12/24/23 02/15/25 History extended release (Wellbutrin XL) gabapentin 300 mg capsule 0 mg PO TID 12/24/23 02/15/25 History nystatin 100,000 unit/gram topical 1 applic topical TID PRN as needed 12/24/23 02/15/25 History powder (Klayesta) tizanidine 2 mg tablet 2 mg PO Q6H PRN Pain 04/09/24 02/15/25 History magnesium 200 mg tablet 200 mg PO QAM 05/16/24 02/15/25 History cyanocobalamin (vitamin B-12) 1,000 mcg PO QAM 09/07/24 02/15/25 History 1,000 mcg tablet (Vitamin B-12) oxycodone 10 mg tablet 10 mg PO Q4H PRN Severe Pain 09/07/24 02/15/25 History (Scale Score 7-10) pramipexole 1 mg tablet 1 mg PO TID 09/07/24 02/15/25 History albuterol sulfate 0.63 mg/3 mL 0.63 mg inhalation Q6H PRN Wheezing 10/24/24 02/15/25 History solution for nebulization dexamethasone 4 mg tablet 4 mg PO DIRECTED PRN PRIOR TO 12/21/24 02/15/25 History CHEMO folic acid 1 mg tablet 1 mg PO DAILY 12/21/24 02/15/25 History morphine 15 mg tablet,extended 0 mg PO BID 12/21/24 02/15/25 History release pantoprazole 40 mg tablet,delayed 40 mg PO DAILY PRN Heartburn 12/21/24 02/15/25 History release prochlorperazine maleate 10 mg 10 mg PO Q6H PRN NAUSEA/VOMITING 12/21/24 02/15/25 History tablet valacyclovir 1 gram tablet 2,000 mg PO BID PRN COLD SORES 12/21/24 02/15/25 History (Valtrex) NEEDED potassium chloride 10 mEq 20 meq (2 x 10 mEq) PO DAILY #6 12/22/24 02/15/25 Rx capsule,extended release caps benzonatate 100 mg capsule 100 mg PO TID PRN cough #10 caps 02/18/25 Rx loperamide 2 mg capsule 4 mg (2 x 2 mg) PO DAILY PRN loose 02/18/25 Rx stool/increased ostomy output #14 caps prednisone 20 mg tablet 40 mg (2 x 20 mg) PO QAM 3 days #6 02/18/25 Rx tabs Past Med/Surg History Problem List (Updated 02/15/25 @ 16:18 by Rohan Kamara PA-C) Lung cancer hx L sided lesions, s/p XRT; now with R lesions on imaging Anemia Chronic hypoxemic respiratory failure (Acute) Acute hyponatremia (Acute) Multiple pulmonary nodules determined by computed tomography of lung Malignant neoplasm of upper lobe, left bronchus or lung Hypokalemia (Acute) 04/2024 Hypomagnesemia (Acute) 04/2024 JOSEPHINE (acute kidney injury) (Acute) 04/2024 2/2 SBO Nausea & vomiting (Acute) Right sided abdominal pain (Acute) SBO (small bowel obstruction) (Acute) 03/2024 Elevated troponin I level (Acute) GI bleed Acute hyponatremia (Acute) 12/2023 Acute GI bleeding (Acute) 12/2023 Acute exacerbation of chronic obstructive pulmonary disease (Acute) 08/2023 Acute respiratory failure with hypoxia and hypercarbia (Acute) duplicafe Lactic acidosis 08/2023 Hypotension 08/2023 Acute hypoxic respiratory failure 3L O2 PRN Primary cancer of left upper lobe of lung (Chronic 11/26/22) Tachycardia 02/2022 Hyponatremia (Acute) chronic Ileostomy present Hypoxia on home O2; 3L PRN Essential tremor DVT prophylaxis Chronic back pain HLD (hyperlipidemia) DM type 2 (diabetes mellitus, type 2) Parastomal hernia with obstruction and without gangrene (Acute) COPD (chronic obstructive pulmonary disease) Fibromyalgia 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) Medical History History of ectopic Hyponatremia chronic hyponatremia; PCP and cardio monitoring (HFpEF) heart failure with preserved ejection fraction HTN (hypertension) CKD (chronic kidney disease), stage III Cigarette smoker pt continues to smoke Hyperlipidemia Fibromyalgia Lung cancer hx L sided lesions, s/p XRT; now with R lesions on imaging On home O2 uses 3L O2 PRN (usually wears every night) Ileostomy present hx of anal ca Essential tremor Primary cancer of left upper lobe of lung dx 01/2023; tx with 5 XRT Chronic pain DMII (diabetes mellitus, type 2) COPD (chronic obstructive pulmonary disease) uses 3L O2 PRN (usually wears every night) Insomnia GERD (gastroesophageal reflux disease) DJD (degenerative joint disease) Diabetic neuropathy Bilateral hands and feet Squamous cell carcinoma of anal canal Diagnosed 05/05/2019. Invasive, moderately differentiated, P-16 positive, Positive margin. s/p ileostomy, completed mitomycin x1 dose on 06/14/2019 and Xeloda along with radiation treatment between 06/09/2019-07/28/2019 Breast infection in female Hx of chronic left breast infections for 20 years; no current issues per pt Heart murmur per 12/2023 ECHO: mild aortic sclerosis without aortic stenosis. mild TR. Degenerative disc disease History of hemorrhoids Low back pain with right-sided sciatica multiple pain management injections with Dr. Archer Hip pain, chronic right Surgical History Hx of foot surgery left History of ankle surgery left History of carpal tunnel surgery History of tubal ligation History of hand surgery middle finger "knuckle" surgery History of tooth extraction Hx of cataract extraction right/left Hx of ileostomy 2020 S/P trigger finger release Status post trigger finger release History of shoulder surgery right 2009, ;left-2012. History of hernia repair History of breast surgery nipple areola reconstruction, s/p multiple infections History of neck surgery excision of lipoma-08/23/17 History of cholecystectomy 08/17/16 History of arthroscopy of right knee History of arthroplasty of left knee History of rectal abscess with I &D 05/05/19 History of colonoscopy 2010, 2016 History of breast biopsy 1994, 2001 History of hysterectomy age 37 History of hemorrhoidectomy 02/17/19 Family History Grandmother (Maternal) , in 60's Lung cancer Brother No problems noted. Sister No problems noted. Daughter No problems noted. Son No problems noted. Other No family history of adverse response to anesthesia No pertinent family history in first degree relatives Social History Smoking Status: Current every day smoker Tobacco Type: Cigarettes packs per day: 1; Cigarettes Per Day: less than 10 per day- advised; Second Hand Exposure: No; Do You Dip or Chew Tobacco: No; Hx Alcohol Use: No Hx Substance Use: No Preferred Language: Telugu Communication Ability: Effective Visual Impairment: Limited Hearing Ability: Hard of Hearing Playground Director Required: No Beliefs That Will Affect Care: None marital status: Current Living Situation: Significant Other Current Living Situation Comment: boyfriend current occupational status: disabled current occupation: last worked in [employer] as [employer] in march Feel Safe at Home: Yes Childhood Exposure to Second-Hand Smoke: Yes caffeine: Yes (mountain dew daily 2 liters a day) Dental Care, Regularly: No Assistive Devices: Glasses, Nebulizer, Oxygen - at Night and Walker Review of Systems Review of Systems: See HPI above Physical Exam Physical Exam: General: no acute distress; pleasant affect; non-toxic appearing; cachectic; cooperative; SpO2 97% on 3L NC HEENT: normocephalic, atraumatic; PERRLA; vision and hearing intact; nasal passageways are patent without signs of active bleeding or dried blood; oral mucosa is coral pink; oropharynx is nonerythematous Neck: supple; trachea midline Skin: warm, dry without signs of tenting; no cyanosis; no rashes, bruising, lesions, or erythema noted CV: chest wall NTP; RRR; S1/S2 normal; no murmurs/rubs/gallops; pulses intact and symmetric at radial, DP, and PT Lungs: no acute respiratory distress; symmetrical chest wall expansion; clear breath sounds across all lung mar w/o adventitious sounds; no wheezing ABD: Soft, RLQ mildly TTP; ileostomy in place with green/liquid drainage; no signs of acute erythema or infection surrounding the ostomy site; negative Rovsing sign; BS present; no rebound/guarding; no distention MSK: no tics or fasciculations; no edema noted in the LEs b/l, nonerythematous Neuro: A&Ox3; normal mood and affect; fluent speech; sensation intact and symmetric in the LEs b/l Results & Data Results & Data Vital Signs (Past 12 Hours) Vital Signs Temp Pulse Pulse Resp BP BP Pulse Ox 02/15/25 13:01 108/39 L 02/15/25 13:01 108/39 L 02/15/25 13:01 108/39 L 02/15/25 13:01 108/39 L 02/15/25 13:00 75 18 91 02/15/25 12:57 71 14 97 02/15/25 12:45 98/66 L 02/15/25 12:45 98/66 L 02/15/25 12:45 98/66 L 02/15/25 12:45 98/66 L 02/15/25 12:45 98/66 L 02/15/25 12:44 76 12 94 02/15/25 12:41 28 H 02/15/25 12:32 74 15 100 02/15/25 12:30 86/60 L 02/15/25 12:30 86/60 L 02/15/25 12:30 86/60 L 02/15/25 12:30 86/60 L 02/15/25 12:30 86/60 L 02/15/25 12:29 80 19 98 02/15/25 12:26 25 H 02/15/25 12:01 113/44 L 02/15/25 12:01 113/44 L 02/15/25 12:01 113/44 L 02/15/25 12:01 113/44 L 02/15/25 12:01 113/44 L 02/15/25 11:59 74 22 02/15/25 11:50 71 11 L 02/15/25 11:41 68 10 L 98 02/15/25 11:40 101/58 L 02/15/25 11:40 101/58 L 02/15/25 11:40 101/58 L 02/15/25 11:40 101/58 L 02/15/25 11:40 101/58 L 02/15/25 11:38 76 21 96 02/15/25 11:32 67 15 100 02/15/25 11:20 69 23 95 02/15/25 11:20 68 02/15/25 11:15 73 97 02/15/25 11:15 71 18 101/58 L 98 02/15/25 11:15 02/15/25 11:11 67 14 92 02/15/25 11:05 71 18 100 02/15/25 11:02 109/57 L 02/15/25 11:02 109/57 L 02/15/25 11:02 109/57 L 02/15/25 10:41 36.1 C L 72 20 84/56 L 98 O2 Del Method O2 Flow Rate 02/15/25 13:01 02/15/25 13:01 02/15/25 13:01 02/15/25 13:01 02/15/25 13:00 02/15/25 12:57 02/15/25 12:45 02/15/25 12:45 02/15/25 12:45 02/15/25 12:45 02/15/25 12:45 02/15/25 12:44 02/15/25 12:41 02/15/25 12:32 02/15/25 12:30 02/15/25 12:30 02/15/25 12:30 02/15/25 12:30 02/15/25 12:30 02/15/25 12:29 02/15/25 12:26 02/15/25 12:01 02/15/25 12:01 02/15/25 12:01 02/15/25 12:01 02/15/25 12:01 02/15/25 11:59 02/15/25 11:50 02/15/25 11:41 02/15/25 11:40 02/15/25 11:40 02/15/25 11:40 02/15/25 11:40 02/15/25 11:40 02/15/25 11:38 02/15/25 11:32 02/15/25 11:20 02/15/25 11:20 02/15/25 11:15 Nasal Cannula 3 02/15/25 11:15 Nasal Cannula 3 02/15/25 11:15 Nasal Cannula 3 02/15/25 11:11 02/15/25 11:05 02/15/25 11:02 02/15/25 11:02 02/15/25 11:02 02/15/25 10:41 Nasal Cannula 3 Laboratory Results Abnormal lab results 02/15/25 Range/Units 11:11 RBC 2.34 L (4.20-5.40) M/uL Hgb 7.8 L (12.0-16.0) g/dl Hct 21.6 L (37.0-47.0) % MCHC 36.1 H (32.0-36.0) g/dL RDW Std Deviation 69.0 H (36.4-46.3) fL RDW Coeff of Chelle 21.2 H (11.5-14.5) % MPV 9.1 L (9.4-12.4) fL Lymph # (Auto) 0.63 L (1.20-3.40) K/uL Story # (Auto) 0.75 H (0.11-0.59) K/uL Immature Gran # (Auto) 0.40 H (0.01-0.20) K/uL Sodium 126 L (136-145) mmol/L Potassium 2.9 L (3.5-5.1) mmol/L Chloride 81 L (98-107) mmol/L Carbon Dioxide 35 H (21-32) mmol/L Creatinine 1.51 H (0.6-1.2) mg/dl Glucose 153 H (70-99(Fasting)) mg/dl Magnesium 1.3 L (1.7-2.4) mg/dl Troponin I High Sens 14.8 H (0-14) pg/ml Diagnostic Findings Head CTA 02/15/25 11:00 CT angio head wo/w CLINICAL HISTORY: 69 years-old Female with dizziness, lightheaded. Acute dizziness COMPARISON STUDY: CTA neck of same day, head CT 01/15/2025 TECHNIQUE: Unenhanced axial CT scan of the brain is performed. Subsequently, following the IV administration of 112 cc of Optiray, CT angiogram of the brain was performed from the skull base to the vertex. Images are reviewed in the axial, sagittal, and coronal planes. 3-D MIPS images are created and assessed. IV contrast was administered without complication. All measurements were obtained according to NASCET criteria. A dose lowering technique was utilized adhering to the principles of ALARA. CT DOSE: 1098.58 mGy.cm FINDINGS: CT BRAIN: There is no acute intracranial hemorrhage, midline shift, hydrocephalus, intracranial mass, territorial ischemia or abnormal extra-axial collections. No abnormal intra-axial or extra-axial enhancement. Prior bilateral lens repair. Mastoid air cells and middle ear cavities are clear. No calvarial fracture. Paranasal sinuses are clear. CT ANGIOGRAM OF THE BRAIN: The imaged bilateral internal carotid arteries are patent. The bilateral anterior and middle cerebral arteries are also patent. Calcified plaque of the V4 segment left vertebral artery causes mild stenosis. No aneurysm, dissection, high-grade stenosis or arterial occlusion. Basilar and posterior cerebral arteries are patent. Dural sinuses appear patent. IMPRESSION: 1. No acute intracranial abnormality. 2. Unremarkable CTA of the head. ACT 112: Negative or not required by law. The above report was generated using voice recognition software. It may contain grammatical, syntax or spelling errors. Electronically signed by: Landon Shaw M.D. 02/15/2025 12:37 PM Neck CTA 02/15/25 11:00 CT ANGIOGRAM OF THE NECK CLINICAL HISTORY: Dizziness. Lightheaded. COMPARISON STUDY: CT of the neck dated 10/01/2019. Chest CT dated 10/27/2024. TECHNIQUE: Following the IV administration of 112 of Optiray 320, CT angiogram of the neck was performed from the aortic arch to the skull base. Images are reviewed in the axial, sagittal, and coronal planes. 3-D MIPS images are created and assessed. IV contrast was administered without complication. All [place] urements were calculated based on NASCET criteria. A dose lowering technique was utilized adhering to the principles of ALARA. FINDINGS: Thoracic aorta: There is atherosclerotic calcification of the thoracic aorta. Visualized portions of the thoracic aorta are normal in caliber. The aortic arch demonstrates standard 3-vessel anatomy. Right carotid arterial system: The right common carotid artery is widely patent, as on the right internal and external carotid arteries. Mild calcified plaque is seen in the carotid bulb. Left carotid arterial system: The left common carotid artery is widely patent, as are the left internal and external carotid arteries. Calcified plaque is seen in the carotid bulb. Vertebral arteries: Widely patent bilaterally noting left-sided dominance. Subclavian arteries: Widely patent bilaterally. Intracranial vasculature: The visualized intracranial vessels at the skull base are patent. Jugular veins: Patent bilaterally. Brain parenchyma: The visualized brain parenchyma the skull base is within normal limits. Lung apices: Emphysematous change is noted. A 7 mm irregular nodular opacity at the right apex on image #116 is new from 2020. There is also a partially imaged left upper lobe nodule on image #1. These were present on the 10/27/[address] Soft tissues: The visualized pharyngeal soft tissues are normal in appearance noting angiographic phase technique. The oropharyngeal airway appears widely patent. The thyroid gland is enlarged and heterogeneous, typical for goiter. A calcified sialolith is seen in the left parotid gland. The salivary glands are otherwise normal in appearance. No cervical lymphadenopathy is seen. Skeletal structures: The skeletal structures are osteopenic. The visualized calvarium at the skull base appears intact. The imaged cervical spine is maintained noting multilevel spondylosis. Sinuses and mastoids: The visualized paranasal sinuses are clear. There is a small right mastoid effusion. The left mastoid air cells are well pneumatized. IMPRESSION: 1. Unremarkable CT angiogram of the neck. 2. Emphysema. 3. Bilateral upper lobe pulmonary nodules are similar to the 10/27/[address] The right apical nodule is new from 2020. A follow-up chest CT in 6 months time is recommended for evaluation. ACT 112: Negative or not required by law. Electronically signed by: Miguel Adair M.D. 02/15/2025 12:59 PM Chest X-Ray 02/15/25 11:01 XR chest 2V PA/lateral CLINICAL HISTORY: Chest pain, nonspecific COMPARISON STUDY: 01/25/2025 FINDINGS: Heart size and pulmonary vasculature are normal. Stable minimal stranding at the left mid upper lung. There is interval minimal stranding at the left lung base, likely atelectasis. No other consolidation or pleural effusion. No pneumothorax. IMPRESSION: Likely minimal atelectasis left lung base. No other acute findings seen. ACT 112: Negative or not required by law. Electronically signed by: Bo Swann M.D. 02/15/2025 1:34 PM ECG Additional Comments: ECG revealed sinus tachycardia with PACs at 103 bpm; QTc 445 Code Status & VTE Plan Code Status Full code VTE Prophylaxis Plan VTE Prophylaxis will be ordered: Yes PG Care Time/CCT Total # of Minutes Spent Total Time Spent with Patient: Total time spent is greater than 50% in coordination of care (as documented) at patient's floor/unit and/or counseling patient: Coding [place] [address] INT INP/OBS CARE 3/75MIN Patient Type Established Medical Decision Making High Complexity Diagnoses Chronic hypoxemic respiratory failure J96.11 Acute hyponatremia E87.1 Hypokalemia E87.6 Hypomagnesemia E83.42 Anemia D64.9 Lung cancer C34.90
[2025-02-15 14:27] LABS: Appearance Urine Clear (Clear); Glucose Urine UA Negative (Negative)
[2025-02-15] MEDS: MAGNESIUM SULFATE / D5W 1 GM/100 ML BAG IV SCH (16:50)
[2025-02-15] MEDS: POTASSIUM CHLORIDE PWD 20 MEQ PACK PO STA (16:50)
[2025-02-15] MEDS: POTASSIUM CHLORIDE CRTAB 20 MEQ TABCR PO STA (16:56)
[2025-02-15] MEDS ORDERED: ACETAMINOPHEN 325 MG TAB PO PRN (17:59)
[2025-02-15] MEDS ORDERED: ALBUTEROL HFA 8 GM INHALER INH PRN (17:59)
[2025-02-15] MEDS ORDERED: CARBOHYDRATES FOR HYPOGLYCEMIA PO PRN (17:59)
[2025-02-15] MEDS ORDERED: GLUCOSE 40% GEL 15 GM TUBE PO PRN (17:59)
[2025-02-15] MEDS ORDERED: DEXTROSE 50% 50 ML SYRINGE IV PRN (17:59)
[2025-02-15] MEDS ORDERED: GLUCOSE 10 TAB/TUBE PO PRN (17:59)
[2025-02-15] MEDS ORDERED: GLUCAGON FOR INJ 1 MG VIAL SQ PRN (17:59)
[2025-02-15] MEDS ORDERED: MELATONIN 3 MG TAB PO PRN (18:00)
[2025-02-15] MEDS ORDERED: ALBUTEROL 0.083% NEBU SOLN 3 ML VIAL INH PRN (18:55)
[2025-02-15] MEDS: INSULIN ASPART PER UNIT CHARGE SC SCH (19:32)
[2025-02-15] MEDS: PRAMIPEXOLE DIHYDROCHLO 0.5 MG TAB PO SCH (20:06)
[2025-02-15] MEDS: MoRPHine SULFATE CR 15 MG TABCR PO SCH (20:06)
[2025-02-15] MEDS: PROPRANOLOL HCL 20 MG TAB PO SCH (20:06)
[2025-02-15] MEDS: GABAPENTIN 300 MG CAP PO SCH (20:07)
[2025-02-15] MEDS: ONDANSETRON INJ 2 MG/ML 2 ML VIAL IV PRN (20:11)
[2025-02-15] MEDS: OPTIRAY 320 100ml IV ONE (20:54)
[2025-02-15 21:03] LABS: Anion Gap 7.0 (3-11); Blood Urea Nitrogen 14.0 mg/dl (6-23); Calcium 8.5 mg/dl (8.6-10.3); Carbon Dioxide 34.0 mmol/L (21-32); Chloride 90.0 mmol/L (98-107); Creatinine Clr Calc Pharmacy 32.1 ml/min; Glucose 152.0 mg/dl (70-99(Fasting)); Potassium 3.1 mmol/L (3.5-5.1); Sodium 131.0 mmol/L (136-145)
[2025-02-15] MEDS: guaiFENesin 600 MG TABCR PO SCH (21:32)
--- NOTE | 2025-02-15 22:25 | CT Scan Report ---
Exam(s): CT CHEST With Contrast IV Amt: 94cc opti 320 EXAM: CT Chest With Intravenous Contrast CLINICAL HISTORY: known lung ca, LLL rales; LLL pneumonia?. TECHNIQUE: Axial computed tomography images of the chest with intravenous contrast. CTDI is 12.79 mGy and DLP is 445.1 mGy-cm. Automated exposure control was utilized for the study. A dose lowering technique was utilized adhering to the principles of ALARA. CONTRAST: Patient received 94cc opti 320 of IV contrast COMPARISON: No relevant prior studies available. FINDINGS: Lungs: Asymmetric peribronchial cuffing with intermittent opacification involving the subsegmental bronchi serving both lower lobes, more prominent when compared to the previous examination. Minimal curvilinear changes of the lung bases. The previously noted rounded juxtapleural lesion involving the medial basal segment of the right lower lobe has resolved. The pulmonary nodule involving the posteromedial aspect of the right upper lobe is also resolved. There is a new pulmonary nodule in the central right middle lobe measuring 7 mm in craniocaudal length with subtle surrounding ground-glass. The curvilinear and somewhat nodular changes in the left upper lobe both medially and laterally are stable in morphologic appearance and size (series 400; images 40-42 from previous examination series 400; image 37). Calcified granulomas in the right lower lobe and anteromedial right upper lobe, stable. Pleural space: Unremarkable. No significant effusion. No pneumothorax. Heart: Unremarkable. No cardiomegaly. No significant pericardial effusion. No significant coronary artery calcifications. Bones/joints: Unremarkable. No acute fracture. Soft tissues: Unremarkable. Vasculature: Unremarkable. No thoracic aortic aneurysm. Lymph nodes: Calcified precarinal and right hilar lymph nodes. No lymphadenopathy. IMPRESSION: 1. Asymmetric peribronchial cuffing with intermittent opacification involving the subsegmental bronchi serving both lower lobes, more prominent when compared to the previous examination. The primary consideration is inflammatory or infectious bronchitis with endobronchial secretions. Subtle aspiration is thought to be less likely. Minimal curvilinear presumed postobstructive pneumonitis. 2. The previously noted rounded juxtapleural lesion involving the medial basal segment of the right lower lobe has resolved. The pulmonary nodule involving the posteromedial aspect of the right upper lobe is also resolved. There is a new pulmonary nodule in the central right middle lobe measuring 7 mm in craniocaudal length with subtle surrounding ground- glass. 3. The curvilinear and somewhat nodular changes in the left upper lobe both medially and laterally are stable in morphologic appearance and size (series 400; images 40-42 from previous examination series 400; image 37). Electronically signed by: London Mccain MD 02/15/25 22:24 PM
--- NOTE | 2025-02-15 23:47 | Ultrasound Report ---
Exam(s): US VENOUS BILATERAL LOWER EXTREMITIES EXAM: US Duplex Bilateral Lower Extremities Veins CLINICAL HISTORY: edema, lung ca - DVT?. TECHNIQUE: Real-time duplex ultrasound scan of the bilateral lower extremity veins integrating B-mode two-dimensional vascular structure, Doppler spectral analysis, color flow Doppler imaging and compression. COMPARISON: No relevant prior studies available. FINDINGS: Right deep veins: No DVT in the right common femoral, femoral, proximal deep femoral or popliteal veins. The veins demonstrate normal color flow, are normally compressible, with normal phasic flow and/or augmentation response. The interrogated calf veins are patent. Right superficial veins: No thrombus in the saphenofemoral junction. Left deep veins: No DVT in the left common femoral, femoral, proximal deep femoral or popliteal veins. The veins demonstrate normal color flow, are normally compressible, with normal phasic flow and/or augmentation response. The interrogated calf veins are patent. Left superficial veins: No thrombus in the saphenofemoral junction. Soft tissues: Mild subcutaneous edema of the calves. No popliteal cyst. IMPRESSION: 1. No evidence for deep vein thrombosis involving the bilateral lower extremities. 2. Minimal edema of the calves bilaterally. Electronically signed by: London Mccain MD 02/15/25 23:46 PM
[2025-02-16] MEDS ORDERED: Nursing to Pharmacy Communication SCH (01:45)
[2025-02-16] MEDS: POTASSIUM CHLORIDE CRTAB 20 MEQ TABCR PO STA (02:14)
[2025-02-16 07:13] LABS: Hemoglobin A1C 7.8 % (4.5-5.6)
[2025-02-16 07:22] LABS: Blood Urea Nitrogen 10.0 mg/dl (6-23); Calcium 8.3 mg/dl (8.6-10.3); Chloride 97.0 mmol/L (98-107); Creatinine Clr Calc Pharmacy 39.6 ml/min; Glucose 89.0 mg/dl (70-99(Fasting)); Potassium 3.5 mmol/L (3.5-5.1); Sodium 134.0 mmol/L (136-145); Transferrin (FE) Percent Satur 13.0 % (15-50)
[2025-02-16 07:30] LABS: Anion Gap 8.0 (3-11); Carbon Dioxide 29.0 mmol/L (21-32); Iron 46.0 mcg/dl (35-150); Total Iron Binding Cap Calc 367.0 mcg/dl (250-450); Transferrin 262.0 mg/dl (200-360)
[2025-02-16 07:35] LABS: Hematocrit (blood only) 19.6 % (37.0-47.0); Hemoglobin 6.8 g/dl (12.0-16.0); Mean Corpuscular Hemoglobin 33.7 pg (25.0-34.0); Mean Corpuscular Volume 97.0 fL (80.0-100.0); Platelet Count 175 K/uL (130-400); RDW Standard Deviation 75.6 fL (36.4-46.3); Red Blood Count 2.02 M/uL (4.20-5.40); White Blood Count 6.26 K/ul (4.8-10.8)
[2025-02-16 07:36] LABS: Folate (Folic Acid),Ser orPlas > 22.30 ng/ml (>5.38)
[2025-02-16 07:37] LABS: Vitamin B12 820 pg/ml (180-914)
[2025-02-16] MEDS: FOLIC ACID 1 MG TAB PO SCH (08:03)
[2025-02-16] MEDS: FLUTICASONE FUROATE 200MCG 14 PUFFS/INHALER INH SCH (08:03)
[2025-02-16] MEDS: ATORVASTATIN 20 MG TAB PO SCH (08:04)
[2025-02-16] MEDS: UMECLIDINIUM/VILANTEROL 62.5/25MCG 7 PUFFS/INHALER INH SCH (08:06)
[2025-02-16 08:07] LABS: Ferritin 392.7 ng/ml (8-388)
--- NOTE | 2025-02-16 08:10 | Hospitalist Progress Note ---
Date of Service February 16, 2025 Assessment & Plan (1) Anemia: (2) Acute hyponatremia: (3) Hypokalemia: (4) Hypomagnesemia: (5) Lung cancer: (6) Chronic hypoxemic respiratory failure: Plan This is a 69-year-old female with PMH of left upper lobe lung cancer (currently undergoing chemotherapy) who presented on 02/15 for generalized weakness and cold-like symptoms. Admitted for electrolyte abnormalities. #Anemia Hgb trend 7.8 -> 6.8 Suspect due to chemotherapy and volume dilution from IVF overnight on 02/15 However, patient is hypotensive on the morning of 02/16 While patient is fairly asymptomatic, it is difficult to tell if she is having shortness of breath as she is on chronic supplemental oxygen therapy Blood consent form 1u pRBC ordered for transfusion Fe panel, vitamin B12, and folate levels are WNL #Hyponatremia Sodium trend 126->134 Negative urine random sodium; do not suspect SIADH Suspected due to volume depletion in setting of GI losses (from ostomy output) and poor p.o. 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 Noted; daily ostomy care Close monitoring of ostomy output, as suspect that patient's electrolyte abnormalities are due to dumping syndrome Touched base with nursing staff to monitor ostomy output So far at 1600 on 02/16, 400 cc of output from the ostomy Will plan for trial of Imodium or Colesytramine if output is >1000 on a daily basis #Generalized weakness PT/OT evaluations appreciated Fall precautions #Diabetes Last A1c at 7.3% on 12/22/2024 Hold metformin SSI; with target BSG range 110-140mg/dL, CF 50, carb ratio 15 T2DM diet BSG ACHS Adjust regimen as needed AM A1c #Lung adenocarcinoma Last chemotherapy session was supposed to be on Monday 02/12, but was canceled due to electrolyte abnormalities and generalized weakness Continue current pain regimen: Morphine 15 mg p.o. BID Gabapentin 300 mg p.o. TID Oxycodone 10 mg p.o. q4h PRN Trazodone HS #Loss of appetite | anorexia In the setting of cancer/chemotherapy Dietitian consult appreciated #Tobacco abuse Continue to encourage cessation; patient declines nicotine patch at arrival #COPD | chronic hypoxic respiratory failure Patient is on continuous oxygen (3L NC) Continue Trelegy Ellipta formulary equivalent Disposition: Continued stay on MedSurg telemetry VTE PPx: SCDs; hold chemical DVT PPx in the setting of blood transfusion/anemia Admission and Anticipated Discharge Date Admission Date: February 15, 2025 Supervising Physician Co-Signing Physician Notes Attending Attestation - Chart reviewed, care plan d/w PA Rohan Kamara. I agree w/ the woody components of his documentation. Roni Sierra MD Subjective Mrs. Donis is in good spirits this morning. She reports that she "slept great", and is excited to have an appetite this morning. She overall feels "much better" than she was when she first came into the hospital. In regard to her ileostomy outputs, she reports it varies depending on how much she eats in a given day. Normally she empties her ostomy 4-5 times per day, and reports it is "mostly liquid", and not similar to stool. Patient was able to ambulate to the bathroom earlier today, and denied dyspnea on exertion. Her main symptoms at this time are dry cough and fatigue (which is improved from prior). In regard to her previous nosebleed mention this week, she reports no recurrence of nosebleed while in the hospital. She is not coughing up blood, and does not feel like there is blood running down the back of her throat. Blowing her nose, she does not notice any blood in her tissues. She denies prior history of blood transfusions. ROS: Patient endorses dry cough and fatigue. Patient denies fever, chills, night sweats, chest pain, SOB at rest, pleuritic CP, ZIMMER, abdominal pain, N/V/D, blood in the urine, or blood in the ostomy output. Review of Systems Review of Systems: See HPI above Physical Exam Physical Exam: General: no acute distress; pleasant affect; non-toxic appearing; cachectic; cooperative; SpO2 100% on 3L NC HEENT: normocephalic, atraumatic; PERRLA; vision and hearing intact; nasal passageways are patent without signs of active bleeding or dried blood; oral mucosa is coral pink; oropharynx is nonerythematous Neck: supple; trachea midline Skin: warm, dry without signs of tenting; no cyanosis; no rashes, bruising, lesions, or erythema noted CV: chest wall NTP; RRR; S1/S2 normal; no murmurs/rubs/gallops; pulses intact and symmetric at radial, DP, and PT Lungs: no acute respiratory distress; symmetrical chest wall expansion; clear breath sounds across all lung mar w/o adventitious sounds; no wheezing ABD: Soft, RLQ mildly TTP; ileostomy in place with green/liquid drainage; no signs of acute erythema or infection surrounding the ostomy site; negative Rovsing sign; BS present; no rebound/guarding; no distention MSK: no tics or fasciculations; no edema noted in the LEs b/l, nonerythematous Neuro: A&Ox3; normal mood and affect; fluent speech; sensation intact and symmetric in the LEs b/l Results & Data Results & Data Vital Signs (Past 12 Hours) Vital Signs Temp Pulse Pulse Resp BP BP Pulse Ox 02/16/25 07:28 36.5 C 76 18 91/55 L 93 02/16/25 07:17 71 02/16/25 04:00 36.8 C 80 18 99/64 L 99 02/15/25 23:55 36.7 C 67 16 97/63 L 98 02/15/25 22:03 67 02/15/25 21:14 71 02/15/25 21:00 02/15/25 21:00 36.6 C 70 22 105/67 92 O2 Del Method O2 Flow Rate 02/16/25 07:28 Nasal Cannula 3 02/16/25 07:17 02/16/25 04:00 Nasal Cannula 3 02/15/25 23:55 Nasal Cannula 3 02/15/25 22:03 02/15/25 21:14 02/15/25 21:00 Nasal Cannula 3 02/15/25 21:00 Nasal Cannula 3 PG Care Time/CCT Total # of Minutes Spent Total Time Spent with Patient: Total time spent is greater than 50% in coordination of care (as documented) at patient's floor/unit and/or counseling patient: Coding [place] [address] SUB INP/OBS CARE 3/50MIN Patient Type Established Medical Decision Making High Complexity Diagnoses Anemia D64.9 Acute hyponatremia E87.1 Hypokalemia E87.6 Hypomagnesemia E83.42 Lung cancer C34.90 Chronic hypoxemic respiratory failure J96.11
[2025-02-16] MEDS: POTASSIUM CHLORIDE 10 MEQ TABCR PO SCH (08:14)
[2025-02-16 09:14] LABS: Magnesium 1.9 mg/dl (1.7-2.4)
[2025-02-16] MEDS: ASPIRIN 81 MG ECTAB PO SCH (09:29)
[2025-02-16] MEDS: FLUTICASONE PROPIONATE NA SPR 16 GM BTL PRN (09:29)
[2025-02-16] MEDS ORDERED: SODIUM CHLORIDE 0.9% 100 ML IV PRN (11:23)
--- NOTE | 2025-02-16 12:29 | Electrocardiogram Report ---
Test Reason : Blood Pressure : */* mmHG Vent. Rate : 68 BPM Atrial Rate : 68 BPM P-R Int : 190 ms QRS Dur : 84 ms QT Int : 414 ms P-R-T Axes : 64 47 47 degrees QTcB Int : 440 ms Sinus rhythm with Premature atrial complexes Otherwise normal ECG When compared with ECG of 15-Jan-2025 11:27, Vent. rate has decreased by 35 bpm Confirmed by Marquise Eason ([id number]) on 02/16/2025 12:29:28 PM Referred By: REFERRED SELF Confirmed By: Marquise Eason
[2025-02-16] MEDS: LACTATED RINGER'S 1,000 ML IV SCH (21:42)
[2025-02-16 23:45] LABS: Hematocrit (blood only) 21.9 % (37.0-47.0); Hemoglobin 7.5 g/dl (12.0-16.0)
[2025-02-17 06:18] LABS: Hematocrit (blood only) 22.3 % (37.0-47.0); Hemoglobin 7.7 g/dl (12.0-16.0); Mean Corpuscular Hemoglobin 32.5 pg (25.0-34.0); Mean Corpuscular Volume 94.1 fL (80.0-100.0); Platelet Count 154 K/uL (130-400); RDW Standard Deviation 73.1 fL (36.4-46.3); Red Blood Count 2.37 M/uL (4.20-5.40); White Blood Count 5.83 K/ul (4.8-10.8)
[2025-02-17 06:33] LABS: Anion Gap 6.0 (3-11); Blood Urea Nitrogen 7.0 mg/dl (6-23); Calcium 8.5 mg/dl (8.6-10.3); Carbon Dioxide 27.0 mmol/L (21-32); Chloride 103.0 mmol/L (98-107); Creatinine Clr Calc Pharmacy 44.9 ml/min; Glucose 95.0 mg/dl (70-99(Fasting)); Potassium 3.9 mmol/L (3.5-5.1); Sodium 136.0 mmol/L (136-145)
[2025-02-17 06:54] LABS: Anisocytosis Present; Immature Granulocytes # (auto) 0.41 K/uL (0.01-0.20); Immature Granulocytes % (auto) 7.0 %
--- NOTE | 2025-02-17 12:23 | Hospitalist Progress Note ---
Date of Service February 17, 2025 Assessment & Plan (1) Anemia: (2) Acute hyponatremia: (3) Hypokalemia: (4) Hypomagnesemia: (5) Lung cancer: (6) Chronic hypoxemic respiratory failure: Plan This is a 69-year-old female with PMH of left upper lobe lung cancer (currently undergoing chemotherapy) who presented on 02/15 for generalized weakness and cold-like symptoms. Admitted for electrolyte abnormalities. #Anemia (improving) Hgb 7.7 s/p 1u pRBC Suspect due to chemotherapy and volume dilution from IVF overnight on 02/15 Fe panel, vitamin B12, and folate levels are WNL No active bleeding on clinical exam Trend H&H #Hyponatremia (resolved) Sodium trend 126->134 ->136 Negative urine random sodium; do not suspect SIADH Suspected due to volume depletion in setting of GI losses (from ostomy output) and poor p.o. 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 Noted; daily ostomy care Close monitoring of ostomy output, as suspect that patient's electrolyte abnormalities are due to dumping syndrome Touched base with nursing staff to monitor ostomy output So far at 1600 on 02/16, 400 cc of output from the ostomy Will plan for trial of Imodium or Colesytramine if output is >1000 on a daily basis Patient is initially hesitant to trial Imodium on 02/17 due to improvement in symptoms, and return of normal ostomy output Will plan for Imodium Rx PRN on discharge #Generalized weakness PT/OT evaluations appreciated Fall precautions #Diabetes Last A1c at 7.3% on 12/22/2024 Hold metformin SSI; with target BSG range 110-140mg/dL, CF 50, carb ratio 15 T2DM diet BSG ACHS Adjust regimen as needed AM A1c #Lung adenocarcinoma Last chemotherapy session was supposed to be on Monday 02/12, but was canceled due to electrolyte abnormalities and generalized weakness Continue current pain regimen: Morphine 15 mg p.o. BID Gabapentin 300 mg p.o. TID Oxycodone 10 mg p.o. q4h PRN Trazodone HS #Loss of appetite | anorexia In the setting of cancer/chemotherapy Dietitian consult appreciated #Tobacco abuse Continue to encourage cessation; patient declines nicotine patch at arrival # Acute COPD vs. bronchitis | chronic hypoxic respiratory failure Patient is on continuous oxygen (3L NC) Chest CT revealed inflammatory bronchitis Prednisone 40 mg p.o. QAM x 5 days Continue Trelegy Ellipta formulary equivalent Disposition: Continued stay on MedSurg telemetry VTE PPx: SCDs; hold chemical DVT PPx in the setting of anemia Admission and Anticipated Discharge Date Admission Date: February 15, 2025 Supervising Physician Co-Signing Physician Notes Attending Attestation - Chart reviewed, care plan d/w CARLOS Kamara. I agree w/ the woody components of his documentation. Roni Sierra MD Subjective Mrs. Donis is doing well this morning. She is glad to report that she now has an appetite again, and has been eating well in the hospital. She believes this is led to a thicker ostomy output; it is still "mud green" in color and consistency. Patient also reports that she might of spilled some of her ostomy output into the toilet when she was attempting to fill it/measure output. No reaction to blood transfusion yesterday. She reports that every day since being in the hospital she has been getting better, but she is still not at "the top of [her] game", or back to her usual baseline. She expresses anxiety about returning home as she is worried about recurrence and coming back to the hospital. She also feels quite weak after working with PT today. ROS: Patient endorses generalized fatigue, intermittent headache, and productive cough. Patient denies fever, lightheadedness, chest pain, SOB, hemoptysis, N/V, changes in ostomy consistency (she reports that some days it is liquid, and some days it is more solid depending on how much food she eats), or changes in urinary habits. Review of Systems Review of Systems: See HPI above Physical Exam Physical Exam: General: no acute distress; pleasant affect; non-toxic appearing; cachectic; cooperative; SpO2 97% on 3L NC HEENT: normocephalic, atraumatic; PERRLA; vision and hearing intact; nasal passageways are patent without signs of active bleeding or dried blood; oral mucosa is coral pink; oropharynx is nonerythematous Neck: supple; trachea midline Skin: warm, dry without signs of tenting; no cyanosis; no rashes, bruising, lesions, or erythema noted CV: chest wall NTP; RRR; S1/S2 normal; no murmurs/rubs/gallops; pulses intact and symmetric at radial, DP, and PT Lungs: no acute respiratory distress; symmetrical chest wall expansion; clear breath sounds across all lung mar w/o adventitious sounds; no wheezing ABD: Soft, RLQ mildly TTP; ileostomy in place draining thick green output; no signs of acute erythema or infection surrounding the ostomy site; BS present; no rebound/guarding; no distention MSK: no tics or fasciculations; no edema noted in the LEs b/l, nonerythematous Neuro: A&Ox3; normal mood and affect; fluent speech; sensation intact and symmetric in the LEs b/l Results & Data Results & Data Vital Signs (Past 12 Hours) Vital Signs Temp Pulse Pulse Resp BP Pulse Ox O2 Del Method 02/17/25 09:00 86 02/17/25 09:00 Nasal Cannula 02/17/25 07:39 36.7 C 84 18 101/64 94 Nasal Cannula 02/17/25 02:56 36.9 C 81 18 92/53 L 94 Nasal Cannula O2 Flow Rate 02/17/25 09:00 02/17/25 09:00 3 02/17/25 07:39 02/17/25 02:56 2 PG Care Time/CCT Total # of Minutes Spent Total Time Spent with Patient: Total time spent is greater than 50% in coordination of care (as documented) at patient's floor/unit and/or counseling patient: Coding [place] [address] SUB INP/OBS CARE 3/50MIN Patient Type Established Medical Decision Making High Complexity Diagnoses Anemia D64.9 Acute hyponatremia E87.1 Hypokalemia E87.6 Hypomagnesemia E83.42 Lung cancer C34.90 Chronic hypoxemic respiratory failure J96.11
[2025-02-17] MEDS: predniSONE 20 MG TAB PO STA (15:44)
[2025-02-17 23:12] VITALS: RESP 18
[2025-02-18 06:40] LABS: Hematocrit (blood only) 22.9 % (37.0-47.0); Hemoglobin 7.7 g/dl (12.0-16.0); Mean Corpuscular Hemoglobin 32.2 pg (25.0-34.0); Mean Corpuscular Volume 95.8 fL (80.0-100.0); Platelet Count 164 K/uL (130-400); RDW Standard Deviation 77.8 fL (36.4-46.3); Red Blood Count 2.39 M/uL (4.20-5.40); White Blood Count 6.69 K/ul (4.8-10.8)
[2025-02-18 07:10] LABS: Anion Gap 5.0 (3-11); Anisocytosis Present; Blood Urea Nitrogen 10.0 mg/dl (6-23); Calcium 8.8 mg/dl (8.6-10.3); Carbon Dioxide 26.0 mmol/L (21-32); Chloride 102.0 mmol/L (98-107); Creatinine Clr Calc Pharmacy 50.3 ml/min; Glucose 160.0 mg/dl (70-99(Fasting)); Immature Granulocytes # (auto) 0.39 K/uL (0.01-0.20); Immature Granulocytes % (auto) 5.8 %; Polychromasia 1+; Potassium 4.5 mmol/L (3.5-5.1); Sodium 133.0 mmol/L (136-145)
--- NOTE | 2025-02-18 09:49 | Discharge Summary ---
Discharge Summary Date of Service February 18, 2025 Principal Dx & Hospital Course #1 = Principal Diagnosis (1) Anemia: (2) Acute hyponatremia: (3) Hypokalemia: (4) Hypomagnesemia: (5) Lung cancer: (6) Chronic hypoxemic respiratory failure: Plan This is a 69-year-old female with PMH of left upper lobe lung cancer (currently undergoing chemotherapy) who presented on 02/15 for generalized weakness and cold-like symptoms. Admitted for electrolyte abnormalities. #Chronic ileostomy | dumping syndrome Suspect main culprit of patient's electrolyte abnormalities Touched base with nursing staff to closely monitor ostomy output while inpatient Per review of I&O's, the most output in one day was 750cc Recommend PRN Imodium daily if output starts to rise to >1000cc Could also trial cholestyramine if refractory to Imodium Explained this to patient, who was hesitant to trial Imodium inpatient due to improvement in her symptoms Will plan for Imodium Rx PRN on discharge #Anemia (improving; stable) Hgb 7.7 -> 7.7 s/p 1u pRBC Suspect due to chemotherapy and volume dilution from IVF overnight on 02/15 Fe panel, vitamin B12, and folate levels are WNL No active bleeding on clinical exam Repeat CBC in the next 4 to 5 days as an outpatient #Hyponatremia (resolved) Sodium trend 126->134 ->136 ->133 Negative urine random sodium; do not suspect SIADH Suspected due to volume depletion in setting of GI losses (from ostomy output) and poor p.o. intake Repeat BMP in the next 4 to 5 days as an outpatient #Hypokalemia (resolved) Replete PRN #Hypomagnesemia (resolved) Replete PRN #Generalized weakness PT/OT evaluations appreciated Fall precautions #Diabetes A1c at 7.8% on 02/16/2025 Resume regimen upon discharge (metformin BID) Patient may require adjustments to regimen as an outpatient; will defer at this time due to poor p.o. intake #Lung adenocarcinoma Last chemotherapy session was supposed to be on Monday 02/12, but was canceled due to electrolyte abnormalities and generalized weakness Continue current pain regimen: Morphine 15 mg p.o. BID Gabapentin 300 mg p.o. TID Oxycodone 10 mg p.o. q4h PRN Trazodone HS #Loss of appetite | anorexia In the setting of cancer/chemotherapy Dietitian consult appreciated #Tobacco abuse Continue to encourage cessation; patient declines nicotine patch at arrival # Acute COPD vs. bronchitis | chronic hypoxic respiratory failure Patient is on continuous oxygen (3L NC) Chest CT revealed inflammatory bronchitis Prednisone 40 mg p.o. QAM x 5 days Continue Trelegy Ellipta formulary equivalent Day of discharge 02/18: VSS Mrs. Donis ("Marichuy") is in good spirits this morning. She is happy to report that she has a good appetite, and her ostomy output is now "muddy" whereas before it was very liquidy. She slept well last night, has been ambulating in the hallways without difficulty, and reports her energy levels are much better. She still endorses a lingering cough, but denies any chest pain, SOB, pleuritic CP. While she is a little hesitant to trial Imodium if her increased ostomy output returns, she expresses understanding that most of her electrolyte abno rmalities likely came from GI losses. Overall, she "feels a lot better" and hopes to go home today as she misses her 2 cats. She does have friends that can pick her up from the hospital today. ROS: Patient endorses lingering wet cough, some nausea after eating, and swelling in the lower extremities bilaterally. Patient denies fever, chest pain, SOB, pleuritic CP, hemoptysis, vomiting, or changes in urinary habits. Disposition: Discharge home Notes For Next Care Provider Patient hospitalized for electrolyte abnormalities. Repleted while in the hospital: (Arrival -> Discharge) Na 126 -> 133 K 2.9 -> 4.5 Mag 1.3 -> 1.9 Suspect that patient's electrolyte abnormalities are primary contributors to her symptoms of fatigue and dizziness, and were caused by increased ostomy output/GI losses in the setting of poor p.o. intake. Her appetite improved over the course of her hospital stay, and her ostomy output gradually changed from a liquid to "mud-like" consistency. Will plan to discharge home on PRN Imodium. Patient also had a low hemoglobin level down to 6.8 on arrival. Suspect this was multifactorial in the setting of IVF dilution and chemotherapy. No active bleeding. She received a blood transfusion 1u PRBC, and her hemoglobin level is stable at 7.7 at time of discharge. Prior to transitional care appointment, it is recommended that she have blood work drawn including a CBC and BMP to assess for stability of her current hemoglobin and electrolyte levels. Additionally, patient has a lingering cough while in the hospital. Viral BioFire negative. However, chest CT did reveal bronchitis. She will be discharged on prednisone 40 mg p.o. x 3 additional days. If patient continues to have drops in electrolytes despite supplementation and Imodium to slow her gastric emptying, would continue to encourage Imodium use, and look for alternative causes (such as renal excretion of electrolytes). Admission HPI Per Admitting Provider Mrs. Donis is a 69-year-old female with PMH of left upper lobe malignancy (curr ently undergoing chemotherapy), T2DM, SBO, tobacco abuse, and chronic hypoxic respiratory failure (on 3L NC continuous). She presented on 02/15 for worsening dizziness, fatigue, and cold-like symptoms (productive cough, and nasal congestion). Patient was supposed to undergo chemotherapy on Wednesday of this week, but this was canceled due to generalized fatigue and electrolyte abnormalities. She was then started on a potassium pill this past week, however her symptoms continually got worse. She has had difficulty sleeping, and reports she is experiencing both SOB at rest and with exertion. She is concerned that she has been having nosebleeds x 1 week. No hemoptysis. No burning with urination, blood in her urine, or blood in her ostomy output. Patient has been trying to drink lots of fluids at home, but reports she has no appetite. Poor p.o. intake, she reports that food just does not taste good anymore. She has noticed decreased output from her ileostomy. Patient lives with her former boyfriend (Bg) who is still 1 of her current caretakers. Patient took her regular morning medicine today; she manages her own medicine at home. Patient is a current everyday tobacco cigarette smoker (6 cigarettes/day). She declined nicotine patch on admission. Patient is mildly hypotensive at 108/39 at time admission; SpO2 97/3 L NC. ED course: K rider 10MEq x 2 Magnesium sulfate 1 g IV x 1 NSS 1000 L IV x 1 ROS: Patient endorses generalized fatigue, dizziness with ambulation, change in taste, loss of appetite, poor PO output, decreased ostomy output, productive cough, congestion, SOB at rest and with exertion, mild chest pain, mild pleuritic CP, and nausea. Patient denies fever, chills, night-sweats, abdominal pain, vomiting, burning with urination, or blood in the urine/stool. Admission Exam Per Admitting Provider General: no acute distress; pleasant affect; non-toxic appearing; cachectic; cooperative; SpO2 97% on 3L NC HEENT: normocephalic, atraumatic; PERRLA; vision and hearing intact; nasal passageways are patent without signs of active bleeding or dried blood; oral mucosa is coral pink; oropharynx is nonerythematous Neck: supple; trachea midline Skin: warm, dry without signs of tenting; no cyanosis; no rashes, bruising, lesions, or erythema noted CV: chest wall NTP; RRR; S1/S2 normal; no murmurs/rubs/gallops; pulses intact and symmetric at radial, DP, and PT Lungs: no acute respiratory distress; symmetrical chest wall expansion; clear breath sounds across all lung mar w/o adventitious sounds; no wheezing ABD: Soft, RLQ mildly TTP; ileostomy in place with green/liquid drainage; no signs of acute erythema or infection surrounding the ostomy site; negative Rovsing sign; BS present; no rebound/guarding; no distention MSK: no tics or fasciculations; no edema noted in the LEs b/l, nonerythematous Neuro: A&Ox3; normal mood and affect; fluent speech; sensation intact and symmetric in the LEs b/l Discharge Exam General: no acute distress; pleasant affect; non-toxic appearing; cachectic; cooperative; SpO2 98% on 3L NC HEENT: normocephalic, atraumatic; PERRLA; vision and hearing grossly intact Neck: supple; trachea midline Skin: warm, dry without signs of tenting; no cyanosis; no rashes, bruising, lesions, or erythema noted CV: chest wall NTP; RRR; pulses intact and symmetric at radial, DP, and PT Lungs: no acute respiratory distress; symmetrical chest wall expansion; clear breath sounds across all lung mar w/o adventitious sounds; no wheezing ABD: Soft, RLQ mildly TTP; ileostomy in place draining thick green output; no signs of acute erythema or infection surrounding the ostomy site; BS present; no rebound/guarding; no distention MSK: no tics or fasciculations; +2 pitting edema in the lower extremities bilaterally, nonerythematous Neuro: A&Ox3; normal mood and affect; fluent speech; sensation intact and symmetric in the LEs b/l Discharge Plan Discharge Items Patient Disposition: Home - Self-Care Reason For Visit: ELECTROLYTE ABNORMALITIES, GERENALIZED WEAKNESS Discharge Diagnosis: Hypokalemia, hyponatremia, hypomagnesemia, anemia, GI losses from ostomy output Condition on Discharge: Good Activity: Resume your previous activity Non-emergency contact: Primary Care Provider Call non-emergency contact if: you have any medication questions, your symptoms worsen and you have a fever Follow-up/Referrals: Sukh Holman MD [Primary Care Provider] - Diet: Regular Addtl Attending Provider Instructions: You were hospitalized at [facility] from 02/15 to 02/18 for generalized weakness and dizziness that was likely due to your electrolyte abnormalities. On arrival, you had low levels of sodium, potassium, and magnesium. After having these levels repleted, you reported improvement in your symptoms. It is suspected that these low electrolyte levels are due to GI losses from your ostomy output. Over the course of your hospital stay, you gradually regained your appetite, and reported that your ostomy output became less liquidy, and more formed. It is recommended that you continue to closely monitor your ostomy output at home, and take a medication called Imodium as needed for liquidy output >1000 cc in a given day. Additionally, your hemoglobin levels were low at 7.8 on arrival (reference range 12-16). These levels then dropped to 6.8 after he received IV fluids in the emergency department. It is not suspected that you have any active bleeding at this time, but rather the level dropped due to IV fluid dilution, and low levels at baseline due to chemotherapy. You underwent a blood transfusion and received 1 unit of packed red blood cells. After this transfusion, your hemoglobin levels return to 7.7 and are currently low, but stable at time of discharge. New prescriptions on discharge: Prednisone 40 mg once daily x 3 additional days (for your lingering cough and suspected bronchitis) Benzonatate ("Tessalon Perles") 100 mg tablets up to 3 times daily as needed for cough Loperamide ("Imodium") 4 mg tablets daily as needed increased/liquidy ostomy output measuring >1000mL in a day Please plan to follow-up with your PCP in the next 7 to 10 days for a transitional care appointment. Prior to this appointment, it is recommend that you have a blood work drawn to assess your hemoglobin and electrolyte levels. You should have 2 tests drawn called a "CBC" and a "BMP". If you develop any new or worsening symptoms, such as fever, chills, lightheadedness with walking, generalized fatigue, difficulty walking, increased ostomy output, change in ostomy consistency (liquidy), decreased appetite, svitlana sea, vomiting, or severe abdominal pain, please return to the emergency department immediately. It was a pleasure taking care of you. Please reach out with any questions or concerns. Sincerely, The Hospital medicine team at [facility] Pending Studies at Discharge: No Stand-Alone Forms: My [facility] Medications and DC Order Prescriptions: New prednisone 20 mg Tablet 40 mg PO QAM 3 Days Qty: 6 0RF Rx Instructions: Take 2 tablets in the morning daily x 3 days loperamide 2 mg capsule 4 mg PO DAILY PRN (Reason: loose stool/increased ostomy output) Qty: 14 0RF Rx Instructions: Take 2 capsules (4 mg) daily as needed for increased/liquid ostomy output measuring > 1000 mL in a day benzonatate 100 mg capsule 100 mg PO TID PRN (Reason: cough) Qty: 10 0RF Rx Instructions: Take 1 capsule 3 times daily as needed for cough Continued pramipexole 1 mg Tablet 1 mg PO TID cyanocobalamin (vitamin B-12) [Vitamin B-12] 1,000 mcg Tablet 1,000 mcg PO QAM Patient Comments: 02/15- otc unable to verify oxycodone 10 mg Tablet 10 mg PO Q4H MDD 3 TABS/24 HOURS PRN (Reason: Severe Pain (Scale Score 7-10)) ondansetron HCl 8 mg tablet 8 mg PO Q8H PRN (Reason: Nausea) albuterol sulfate 90 mcg/actuation HFA aerosol inhaler 2 puff inhalation Q4H PRN (Reason: Shortness Of Breath Or Wheezing) trazodone 50 mg tablet 50 mg PO HS metformin 1,000 mg tablet 0 mg PO BIDM Patient Comments: 02/15- last filled 04/26 89 day #180 fluticasone propionate [Flonase Allergy Relief] 50 mcg/actuation spray,suspe nsion 2 spray INTRANASAL QAM PRN (Reason: Allergy Symptoms) atorvastatin 20 mg Tablet 0 mg PO DAILY Patient Comments: 02/15-last filled 08/05 90 day supply #90 aspirin 81 mg Tablet,Delayed Release (Dr/Ec) 81 mg PO QAM Patient Comments: 02/15- otc unable to verify Trelegy Ellipta 200-62.5-25 mcg blister with device 1 inh INHALATION DAILY propranolol 20 mg tablet 20 mg PO AMHS furosemide [Lasix] 40 mg tablet 40 mg PO DAILY PRN (Reason: Edema) Patient Comments: 02/15-last filled 06/12 90 day supply nystatin [Klayesta] 100,000 unit/gram powder 1 applic TOPICAL TID PRN (Reason: as needed) Patient Comments: 02/15- no fill history unable to verify bupropion HCl [Wellbutrin XL] 300 mg tablet extended release 24 hr 300 mg PO QAM gabapentin 300 mg capsule 0 mg PO TID Patient Comments: 02/15- last filled 10/16 90 day supply BID #180; original directions: 300mg TID albuterol sulfate 0.63 mg/3 mL Solution For Nebulization 0.63 mg INHALATION Q6H PRN (Reason: Wheezing) pantoprazole 40 mg tablet,delayed release (DR/EC) 40 mg PO DAILY PRN (Reason: Heartburn) Patient Comments: 02/15- last filled 04/01 90 day supply #90 valacyclovir [Valtrex] 1 gram Tablet 2,000 mg PO BID PRN (Reason: COLD SORES NEEDED) Patient Comments: 02/15- no fill history unable to verify prochlorperazine maleate 10 mg tablet 10 mg PO Q6H PRN (Reason: NAUSEA/VOMITING) folic acid 1 mg Tablet 1 mg PO DAILY Patient Comments: 02/15- otc unable to verify morphine 15 mg tablet extended release 0 mg PO BID Patient Comments: 02/15- last filled 01/08 30 day supply #60 dexamethasone 4 mg tablet 4 mg PO DIRECTED PRN (Reason: PRIOR TO CHEMO) potassium chloride 10 mEq capsule, extended release 20 meq PO DAILY Qty: 6 0RF tizanidine 2 mg tablet 2 mg PO Q6H PRN (Reason: Pain) magnesium 200 mg tablet 200 mg PO QAM Patient Comments: 02/15- otc unable to verify Discharge Orders: Discharge Order (Routine); Ordered 02/18/25 Ordered By: Rohan Mckinnon/Other Patient Handouts: Managing Type 2 Diabetes Admission Data Admit Date/Time: 02/15/25 15:18 Attending Provider: Roni Sierra Admit Provider: Roni Sierra Primary Care Provider: Sukh Holman Other Providers: Gretchen Monte; [facility] Fax Hospital Stay Data Consultations 02/15/25 14:12 ED Decision to Admit Stat Diagnostic Imagining Performed 02/15/25 11:00 CT angio head wo/w Stat CT angio neck with con Stat 02/15/25 19:53 CT chest diagnostic w con Routine US venous doppler LE BI Urgent Discharge Instructions Given to Patient (Per Discharging Provider) You were hospitalized at [facility] from 02/15 to 02/18 for generalized weakness and dizziness that was likely due to your electrolyte abnormalities. On arrival, you had low levels of sodium, potassium, and magnesium. After having these levels repleted, you reported improvement in your symptoms. It is suspected that these low electrolyte levels are due to GI losses from your ostomy output. Over the course of your hospital stay, you gr adually regained your appetite, and reported that your ostomy output became less liquidy, and more formed. It is recommended that you continue to closely monitor your ostomy output at home, and take a medication called Imodium as needed for liquidy output >1000 cc in a given day. Additionally, your hemoglobin levels were low at 7.8 on arrival (reference range 12-16). These levels then dropped to 6.8 after he received IV fluids in the emergency department. It is not suspected that you have any active bleeding at this time, but rather the level dropped due to IV fluid dilution, and low levels at baseline due to chemotherapy. You underwent a blood transfusion and received 1 unit of packed red blood cells. After this transfusion, your hemoglobin levels return to 7.7 and are currently low, but stable at time of discharge. New prescriptions on discharge: Prednisone 40 mg once daily x 3 additional days (for your lingering cough and suspected bronchitis) Benzonatate ("Tessalon Perles") 100 mg tablets up to 3 times daily as needed for cough Loperamide ("Imodium") 4 mg tablets daily as needed increased/liquidy ostomy output measuring >1000mL in a day Please plan to follow-up with your PCP in the next 7 to 10 days for a transitional care appointment. Prior to this appointment, it is recommend that you have a blood work drawn to assess your hemoglobin and electrolyte levels. You should have 2 tests drawn called a "CBC" and a "BMP". If you develop any new or worsening symptoms, such as fever, chills, lightheadedness with walking, generalized fatigue, difficulty walking, increased ostomy output, change in ostomy consistency (liquidy), decreased appetite, nausea, vomiting, or severe abdominal pain, please return to the emergency department immediately. It was a pleasure taking care of you. Please reach out with any questions or concerns. Sincerely, The Hospital medicine team at [facility] Total Time Total Time Spent Total Time Spent (In Minutes): 45 Coding [place] [address] INP/OBS DISCH >30 MIN Patient Type Established History Comprehensive Exam Comprehensive Medical Decision Making High Complexity Diagnoses Anemia D64.9 Acute hyponatremia E87.1 Hypokalemia E87.6 Hypomagnesemia E83.42 Lung cancer C34.90 Chronic hypoxemic respiratory failure J96.11
[2025-02-18] MEDS: predniSONE 20 MG TAB PO SCH (10:05)
[2025-02-18] MEDS: MIDODRINE HCL 10 MG TAB PO STA (10:26)
[2025-02-18 12:13] VITALS: PULSE 76
[2025-02-18 14:00] VITALS: BP 122/70; TEMP 97.5; O2SAT 95
== END 2025-02-18 14:11 | disposition home health service (06) | DRG 392 ==
LOC: SUATTDRO → ED 10:35 → EDINP 15:18 → 2W 18:00

== ENCOUNTER 2025-04-07 11:06 | Observation (INO) ==
[2025-04-07 12:10] LABS: Hematocrit (blood only) 36.6 % (37.0-47.0); Hemoglobin 12.0 g/dL (12.0-16.0); Mean Corpuscular Hemoglobin 32.0 pg (25.0-34.0); Mean Corpuscular Volume 97.6 fL (80.0-100.0); Platelet Count 233 K/uL (130-400); RDW Standard Deviation 54.2 fL (36.4-46.3); Red Blood Count 3.75 M/uL (4.20-5.40); White Blood Count 5.25 K/ul (4.8-10.8)
[2025-04-07 12:26] LABS: Alanine Aminotransferase 8.0 U/L (7-52); Albumin Globulin Ratio 1.5 (0.9-2); Albumin Level 4.4 gm/dl (3.4-5.0); Alkaline Phosphatase 50.0 U/L (34-104); Anion Gap 8.0 (3-11); Bilirubin,Total 0.5 mg/dl (0.2-1.0); Blood Urea Nitrogen 7.0 mg/dl (6-23); Calcium 10.5 mg/dl (8.6-10.3); Carbon Dioxide 37.0 mmol/L (21-32); Chloride 92.0 mmol/L (98-107); Creatinine Clr Calc Pharmacy 44.5 ml/min; Globulin 3.0 gm/dl (2.5-4.0); Glucose 132.0 mg/dl (70-99(Fasting)); Potassium 3.3 mmol/L (3.5-5.1); Sodium 137.0 mmol/L (136-145); Total Protein 7.4 gm/dl (6.0-8.3)
[2025-04-07 12:37] LABS: INR 1.0 (0.9-1.1); Partial Thromboplastin Time 26 Seconds (21-31); Prothrombin Time 10.3 Seconds (9.0-12.0)
--- NOTE | 2025-04-07 12:56 | Emergency Department Note ---
Impression & Plan Rectal bleeding, Abdominal pain, Confusion ED Provider Note NAME: JOHNATHAN MISHRA AGE: 69 SEX: F : 1955 ARRIVES VIA: Walk-In INFORMANT: The patient herself and son at bedside. ED PROVIDER(S): Kait Díaz PA-C, [Lindsay Pagan MD] CHIEF COMPLAINT: Anal bleeding and discharge HISTORY OF PRESENTING ILLNESS: The patient is a 69-year-old female with a PMH squamous cell carcinoma of the anus, fibromyalgia, COPD, DM type II, HLD, chronic back pain, essential tremor, lung cancer being treated at [facility], small bowel obstruction, and anemia who presents to the emergency department with complaints of anal bleeding and discharge that began today with associated lower abdominal pain. She does have a colostomy after resection of squamous cell cancer of the anus. She denies any issues with the colostomy and reports its contents are consistent with her normal. No blood in colostomy. She has been in remission for 2 to 3 years. Reports nausea but denies vomiting. She denies fever, chest pain, shortness of breath, urinary symptoms. REVIEW OF SYSTEMS: See HPI for pertinent positives and pertinent negatives. ALLERGIES: NKDA, adhesive MEDICATIONS: See below PAST MEDICAL HISTORY: See below PHYSICAL EXAM: VITALS: Vitals are noted on the nurses note and reviewed by myself. Vital signs stable. GENERAL: 69-year-old female, in no acute distress, nondiaphoretic, well- developed well-nourished. SKIN: Capillary refill less than 2 seconds. HEENT: Normocephalic. PERRLA. EOMI. Nares patent. Mucous membranes moist. Neck is supple without nuchal rigidity. HEART: Regular rate and rhythm without murmurs gallops or rubs. LUNGS: Diffuse rhonchi. No wheezing or rales. No retraction or accessory muscle use. No coughing. ABDOMEN: Positive BS x 4. Colostomy without complication. Brown liquid seen in bag. Diffuse tenderness. Soft, without masses. No guarding or rebound tenderness. MUSCULOSKELETAL: No gross musculoskeletal defects. NEURO: Patient was alert and oriented to person place and time. No focal neurological deficits. RECTAL - No rectal fissures. No active bleeding. A sterile, water-soluble lubricant was applied to the examiner's finger prior to internal exam. No rectal vault tenderness. No rectal masses. No fecal impaction. Stool Guaiac Test: Hemoccult positive. DIFFERENTIAL DIAGNOSIS: Differential diagnosis includes upper GI bleed, hemorrhoids, diverticulitis, SBO, malignancy, ostomy problem, appendicitis, inflammatory bowel disease, renal colic, PUD, biliary pathology, pancreatitis, mesenteric ischemia, aortic pathology, infection, genitourinary, UTI, perforated viscus, among others. ED COURSE AND MEDICAL DECISION MAKING: MEDICATIONS GIVEN: Morphine 2 mg IV, Zofran 4 mg IV, 1 L normal saline, potassium 20 PO, morphine 2 mg IV, 500 mL normal saline, potassium 10 IV, Reglan 10 IV MONITOR: Continuous nurse monitoring: Order was placed for continuous nurse monitoring. Patient was placed on the nurse monitoring and continuous pulse ox. Patient was noted to be in normal sinus rhythm at an initial rate of 87 bpm per my interpretation. EKG: EKG was interpreted by myself as normal sinus rhythm. No obvious arrhythmia. No ST or T wave abnormality. ID interval 152 ms. QTc 438 ms. When compared to previous EKG from 02/15/2025 no significant change seen. INTERPRETATION OF LABS: I interpreted the labs with full lab results as below in the lab section of this note. Pertinent lab results discussed in the MDM section below. INTERPRETATION OF IMAGING: I informally interpreted the patient's CT abdomen and pelvis and reviewed the formal report below. CONSULTATIONS: Tadeo Fernandez on-call hospitalist MDM SUMMARY: I evaluated the 69-year-old female who presents to the emergency department due to blood and discharge from her rectum that began today with associated lower abdominal pain and nausea. See HPI and PE above. Vitals are stable. EKG obtained initial rate 87 bpm normal sinus rhythm. No acute changes. IV access was established and labs obtained. Morphine, Zofran, and 1 L normal saline given for symptom management. Colostomy bag is noticed without complication. Brown liquid seen in bag. No occult blood. Rectal exam performed showing in no acute abnormality. Hemoccult positive. Labs show no leukocytosis. Hemodynamically stable. Coagulation panel within normal limits. Mild hypokalemia 3.3. This was repleted with oral and IV. No JOSEPHINE. Normal LFTs. Troponin 7.0. Urinalysis shows 2+ ketones. No UTI. Additional fluids given. CT abdomen and pelvis obtained showing diffuse colitis with a few small areas that could represent small clots or trace hemorrhage. There is no bowel obstruction. Otherwise incidental findings reviewed with the patient at bedside. She does request something for nausea. Reglan was given. She was tolerating oral fluids however is now complaining of worsening nausea and abdominal pain. I evaluated the patient at bedside with the son who then became confused. She was mumbling phrases and was not making sense. The son states "she is like this sometimes but often when she is tired". Discussed with the patient and the son I do believe it is best for her to be admitted for further management and evaluation. Both are agreeable. Consulted with on-call hospitalist. They agreed to evaluating the patient and admitting them to medicine. See that note for further workup. The patient was admitted in stable condition. DIAGNOSIS: Rectal bleeding, abdominal pain, confusion The chart was completed utilizing [employer] Speech voice recognition software. Grammatical errors, random word insertions, pronoun errors, and incomplete sentences are an occasional consequence of this system due to software limitations, ambient noise, and hardware issues. Any formal questions or concerns about the content, text, or information contained within the body of this dictation should be directly addressed to the provider for clarification. TREATMENT PLAN/DISCHARGE INSTRUCTIONS: The patient was admitted to medicine. See that note for further management of the patient. Past Med/Surg History Problem List (Updated 04/08/25 @ 10:59 by Kait Díaz PA-C) Confusion (Acute) Abdominal pain (Acute) Rectal bleeding (Acute) Opioid dependence Type 2 diabetes mellitus COPD (chronic obstructive pulmonary disease) Colostomy status Rectal bleeding Lung cancer hx L sided lesions, s/p XRT; now with R lesions on imaging Anemia Chronic hypoxemic respiratory failure (Acute) Multiple pulmonary nodules determined by computed tomography of lung Malignant neoplasm of upper lobe, left bronchus or lung Nausea & vomiting (Acute) Right sided abdominal pain (Acute) SBO (small bowel obstruction) (Acute) 03/2024 GI bleed Acute hyponatremia (Acute) 12/2023 Acute GI bleeding (Acute) 12/2023 Acute exacerbation of chronic obstructive pulmonary disease (Acute) 08/2023 Acute respiratory failure with hypoxia and hypercarbia (Acute) duplicafe Lactic acidosis 08/2023 Hypotension 08/2023 Acute hypoxic respiratory failure 3L O2 PRN Primary cancer of left upper lobe of lung (Chronic 11/26/22) Tachycardia 02/2022 Ileostomy present Hypoxia on home O2; 3L PRN Essential tremor DVT prophylaxis Chronic back pain HLD (hyperlipidemia) DM type 2 (diabetes mellitus, type 2) Parastomal hernia with obstruction and without gangrene (Acute) COPD (chronic obstructive pulmonary disease) Fibromyalgia 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) Medical History Acute hyponatremia Hypokalemia 04/2024 Hypomagnesemia 04/2024 JOSEPHINE (acute kidney injury) 04/2024 2/2 SBO Elevated troponin I level History of ectopic Hyponatremia chronic hyponatremia; PCP and cardio monitoring (HFpEF) heart failure with preserved ejection fraction HTN (hypertension) CKD (chronic kidney disease), stage III Cigarette smoker pt continues to smoke Hyperlipidemia Fibromyalgia On home O2 uses 3L O2 PRN (usually wears every night) Ileostomy present hx of anal ca Essential tremor Primary cancer of left upper lobe of lung dx 01/2023; tx with 5 XRT Chronic pain DMII (diabetes mellitus, type 2) COPD (chronic obstructive pulmonary disease) uses 3L O2 PRN (usually wears every night) Insomnia GERD (gastroesophageal reflux disease) DJD (degenerative joint disease) Diabetic neuropathy Bilateral hands and feet Squamous cell carcinoma of anal canal Diagnosed 05/05/2019. Invasive, moderately differentiated, P-16 positive, Positive margin. s/p ileostomy, completed mitomycin x1 dose on 06/14/2019 and Xeloda along with radiation treatment between 06/09/2019-07/28/2019 Breast infection in female Hx of chronic left breast infections for 20 years; no current issues per pt Heart murmur per 12/2023 ECHO: mild aortic sclerosis without aortic stenosis. mild TR. Degenerative disc disease History of hemorrhoids Low back pain with right-sided sciatica multiple pain management injections with Dr. Archer Hip pain, chronic right Surgical History Hx of foot surgery left History of ankle surgery left History of carpal tunnel surgery History of tubal ligation History of hand surgery middle finger "knuckle" surgery History of tooth extraction Hx of cataract extraction right/left Hx of ileostomy 2020 S/P trigger finger release Status post trigger finger release History of shoulder surgery right 2009, ;left-2012. History of hernia repair History of breast surgery nipple areola reconstruction, s/p multiple infections History of neck surgery excision of lipoma-08/23/17 History of cholecystectomy 08/17/16 History of arthroscopy of right knee History of arthroplasty of left knee History of rectal abscess with I &D 05/05/19 History of colonoscopy 2016 History of breast biopsy 2001 History of hysterectomy age 37 History of hemorrhoidectomy 02/17/19 Family History Grandmother (Maternal) , in 60's Lung cancer Brother No problems noted. Sister No problems noted. Daughter No problems noted. Son No problems noted. Other No family history of adverse response to anesthesia No pertinent family history in first degree relatives Social History Smoking Status: Current every day smoker Tobacco Type: Cigarettes packs per day: 1; Cigarettes Per Day: less than 10 per day- advised; Second Hand Exposure: No; Do You Dip or Chew Tobacco: No; Hx Alcohol Use: No Hx Substance Use: No Preferred Language: Citizen Of [place] Communication Ability: Effective Visual Impairment: Limited Hearing Ability: Hard of Hearing [employer] Required: No Beliefs That Will Affect Care: None marital status: Current Living Situation: Significant Other Current Living Situation Comment: boyfriend current occupational status: disabled 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 Feel Safe at Home: Yes Childhood Exposure to Second-Hand Smoke: Yes caffeine: Yes (mountain dew daily 2 liters a day) Dental Care, Regularly: No Assistive Devices: Glasses and Oxygen - Continuous Allergies Allergies Allergy/AdvReac Type Severity Reaction Status Date / Time adhesive AdvReac Intermediate ITCHY RASH Verified 12/21/24 16:48 Home Meds Home Medications Medication Instructions Recorded Confirmed aspirin 81 mg tablet,delayed 81 mg PO QAM 02/26/19 04/07/25 release atorvastatin 20 mg tablet 0 mg PO DAILY 02/26/19 04/07/25 fluticasone propionate 50 2 spray intranasal QAM PRN Allergy 02/26/19 04/07/25 mcg/actuation nasal Symptoms spray,suspension (Flonase Allergy Relief) metformin 1,000 mg tablet 1,000 mg PO BIDM 02/26/19 04/07/25 trazodone 50 mg tablet 50 mg PO HS 02/26/19 04/07/25 albuterol sulfate 90 mcg/actuation 2 puff inhalation Q4H PRN 03/31/19 04/07/25 aerosol inhaler Shortness Of Breath Or Wheezing ondansetron HCl 8 mg tablet 8 mg PO Q8H PRN Nausea 05/29/20 04/07/25 fluticasone fur. 200 mcg-umeclid 1 inh inhalation DAILY 03/02/22 04/07/25 62.5 mcg-vilant 25 mcg inhalat.powder (Trelegy Ellipta) propranolol 20 mg tablet 20 mg PO AMHS 03/02/22 04/07/25 furosemide 40 mg tablet (Lasix) 40 mg PO DAILY PRN Edema 03/26/22 04/07/25 bupropion HCl 300 mg 24 hr tablet, 300 mg PO QAM 12/24/23 04/07/25 extended release (Wellbutrin XL) gabapentin 300 mg capsule 0 mg PO TID 12/24/23 04/07/25 nystatin 100,000 unit/gram topical 1 applic topical TID PRN as needed 12/24/23 04/07/25 powder (Klayesta) tizanidine 2 mg tablet 2 mg PO Q6H PRN Pain 04/09/24 04/07/25 magnesium 200 mg tablet 200 mg PO QAM 05/16/24 04/07/25 cyanocobalamin (vitamin B-12) 1,000 mcg PO QAM 09/07/24 04/07/25 1,000 mcg tablet (Vitamin B-12) oxycodone 10 mg tablet 10 mg PO Q4H PRN Severe Pain 09/07/24 04/07/25 (Scale Score 7-10) pramipexole 1 mg tablet 1 mg PO TID 09/07/24 04/07/25 albuterol sulfate 0.63 mg/3 mL 0.63 mg inhalation Q6H PRN Wheezing 10/24/24 04/07/25 solution for nebulization dexamethasone 4 mg tablet 4 mg PO DIRECTED PRN PRIOR TO 12/21/24 04/07/25 CHEMO folic acid 1 mg tablet 1 mg PO DAILY 12/21/24 04/07/25 morphine 15 mg tablet,extended 15 mg PO BID 12/21/24 04/07/25 release pantoprazole 40 mg tablet,delayed 40 mg PO DAILY PRN Heartburn 12/21/24 04/07/25 release prochlorperazine maleate 10 mg 10 mg PO Q6H PRN NAUSEA/VOMITING 12/21/24 04/07/25 tablet valacyclovir 1 gram tablet 2,000 mg PO BID PRN COLD SORES 12/21/24 04/07/25 (Valtrex) NEEDED Previous Rx's Medication Instructions Recorded potassium chloride 10 mEq 20 meq (2 x 10 mEq) PO DAILY #6 12/22/24 capsule,extended release caps benzonatate 100 mg capsule 100 mg PO TID PRN cough #10 caps 02/18/25 loperamide 2 mg capsule 4 mg (2 x 2 mg) PO DAILY PRN loose 02/18/25 stool/increased ostomy output #14 caps Results & Data (ED) Vital Signs Vital Signs - 24 hr 04/07/25 11:28 04/07/25 12:40 04/07/25 13:00 Temperature 36.8 C Temperature Source Temporal Artery Scan Pulse Rate 101 H 90 Pulse Rate [Apical] Pulse Rate from SpO2 Sensor 82 Respiratory Rate 20 Respiratory Effort / Characteristics Respiratory Depth Blood Pressure 116/73 130/86 Blood Pressure Mean 87 100 Pulse Oximetry 95 99 Oxygen Delivery Method Nasal Cannula Nasal Cannula Oxygen Flow Rate 3 3 Sepsis Recent Fever Within 48 Hours No Sepsis New/Unexplained Change in Mental Status N/A Sepsis Action Taken by Nursing No Action Required 04/07/25 15:00 04/07/25 15:00 04/07/25 15:30 Temperature Temperature Source Pulse Rate 79 Pulse Rate [Apical] Pulse Rate from SpO2 Sensor 78 Respiratory Rate 12 Respiratory Effort / Characteristics Respiratory Depth Blood Pressure 129/82 140/75 Blood Pressure Mean 91 99 Pulse Oximetry 99 Oxygen Delivery Method Oxygen Flow Rate Sepsis Recent Fever Within 48 Hours Sepsis New/Unexplained Change in Mental Status Sepsis Action Taken by Nursing 04/07/25 15:30 04/07/25 15:30 04/07/25 15:30 Temperature Temperature Source Pulse Rate Pulse Rate [Apical] Pulse Rate from SpO2 Sensor Respiratory Rate Respiratory Effort / Characteristics Respiratory Depth Blood Pressure 140/75 140/75 140/75 Blood Pressure Mean 99 99 99 Pulse Oximetry Oxygen Delivery Method Oxygen Flow Rate Sepsis Recent Fever Within 48 Hours Sepsis New/Unexplained Change in Mental Status Sepsis Action Taken by Nursing 04/07/25 15:30 04/07/25 15:30 04/07/25 17:00 Temperature Temperature Source Pulse Rate 78 Pulse Rate [Apical] 90 Pulse Rate from SpO2 Sensor 78 Respiratory Rate 15 18 Respiratory Effort / Characteristics Non-Labored Spontaneous Respiratory Depth Normal Blood Pressure 140/75 Blood Pressure Mean 99 Pulse Oximetry 99 97 Oxygen Delivery Method Nasal Cannula Oxygen Flow Rate 3 Sepsis Recent Fever Within 48 Hours Sepsis New/Unexplained Change in Mental Status Sepsis Action Taken by Nursing Laboratory Data 04/08/25 04:58 04/08/25 04:58 Lab Results 04/07/25 04/07/25 Range/Units 11:45 13:17 WBC 5.25 (4.8-10.8) K/ul RBC 3.75 L (4.20-5.40) M/uL Hgb 12.0 (12.0-16.0) g/dL Hct 36.6 L (37.0-47.0) % MCV 97.6 (80.0-100.0) fL MCH 32.0 (25.0-34.0) pg MCHC 32.8 (32.0-36.0) g/dL RDW Std Deviation 54.2 H (36.4-46.3) fL RDW Coeff of Chelle 15.1 H (11.5-14.5) % Plt Count 233 (130-400) K/uL MPV 8.4 L (9.4-12.4) fL PT 10.3 (9.0-12.0) Seconds INR 1.0 (0.9-1.1) APTT 26 (21-31) Seconds PTT Ratio 1.0 Sodium 137 (136-145) mmol/L Potassium 3.3 L (3.5-5.1) mmol/L Chloride 92 L (98-107) mmol/L Carbon Dioxide 37 H (21-32) mmol/L Anion Gap 8 (3-11) BUN 7 (6-23) mg/dl Creatinine 1.03 (0.6-1.2) mg/dl Est Cr Clr Drug Dosing 44.5 ml/min eGFR 58.86 BUN/Creatinine Ratio 6.8 L (10-20) Glucose 132 H (70-99(Fasting)) mg/dl Calcium 10.5 H (8.6-10.3) mg/dl Total Bilirubin 0.5 (0.2-1.0) mg/dl AST 13 (13-39) U/L ALT 8 (7-52) U/L Alkaline Phosphatase 50 (34-104) U/L Troponin I High Sens 7.0 (0-14) pg/ml Total Protein 7.4 (6.0-8.3) gm/dl Albumin 4.4 (3.4-5.0) gm/dl Globulin 3.0 (2.5-4.0) gm/dl Albumin/Globulin Ratio 1.5 (0.9-2) POC Stool Occult Blood Positive A (Negative) Blood Type O Positive Antibody Screen NEGATIVE Administered Medications Atorvastatin Calcium (Atorvastatin 20 Mg Tab) 20 mg PO DAILY HANNAH Stop: 05/08/25 08:59 Last Admin: 04/08/25 08:39 Dose: 20 mg Documented By: TOMAS Bupropion HCl (Bupropion Xl 300 Mg Tabcr) 300 mg PO QAM [facility] Stop: 05/08/25 08:59 Last Admin: 04/08/25 08:39 Dose: 300 mg Documented By: TOMAS Cyanocobalamin (Cyanocobalamin (B-12) 500 Mcg Tablet) 1,000 mcg PO QAM [facility] Stop: 05/08/25 08:59 Last Admin: 04/08/25 08:39 Dose: 1,000 mcg Documented By: TOMAS Fluticasone Furoate (Fluticasone Furoate 200mcg 14 Puffs/Inhaler) 1 puffs INH DAILY [facility]ANNAH Stop: 05/08/25 08:59 Last Admin: 04/08/25 09:33 Dose: 1 puffs Documented By: TOMAS Folic Acid (Folic Acid 1 Mg Tab) 1 mg PO DAILY [facility]NA[facility] Stop: 05/08/25 08:59 Last Admin: 04/08/25 08:39 Dose: 1 mg Documented By: TOMAS Gabapentin (Gabapentin 300 Mg Cap) 300 mg PO TID [facility] Stop: 05/07/25 20:59 Last Admin: 04/08/25 08:39 Dose: 300 mg Documented By: Admin: 04/07/25 22:00 Dose: 300 mg Documented By: HARPER Pantoprazole Sodium (Protonix) 40 mg in 10 mls @ 5 mls/min IV DAILY [facility]ANNAH Stop: 05/08/25 08:59 Last Admin: 04/08/25 09:23 Dose: 5 mls/min Documented By: TOMAS Potassium Chloride 40 meq/ (Sodium Chloride) 1,020 mls @ 60 mls/hr IV .Q17H [facility] Stop: 04/11/25 10:14 Last Infusion: 04/08/25 09:31 Dose: 0 mls/hr Documented By: Admin: 04/08/25 08:36 Dose: 60 mls/hr Documented By: TOMAS Insulin Aspart (Insulin Aspart Per Unit Charge) 0 units SC ACHS [facility] Stop: 05/07/25 20:59 Last Admin: 04/08/25 08:29 Dose: Not Given Documented By: TOMAS Co-signed By: CEF Admin: 04/07/25 20:51 Dose: Not Given Documented By: HARPER Magnesium Oxide (Magnesium Oxide 400 Mg Tab) 200 mg PO QAM [facility] Stop: 05/08/25 08:59 Last Admin: 04/08/25 08:38 Dose: 200 mg Documented By: TOMAS Morphine Sulfate (Morphine Sulfate 2 Mg/Ml Carp) 1 mg IV Q3H PRN PRN Reason: Pain Stop: 04/21/25 19:50 Last Admin: 04/07/25 20:20 Dose: 1 mg Documented By: HARPER Morphine Sulfate (Morphine Sulfate Cr 15 Mg Tabcr) 15 mg PO BID [facility] Stop: 04/22/25 08:59 Last Admin: 04/08/25 08:37 Dose: 15 mg Documented By: TOMAS Oxycodone HCl (Oxycodone Hcl Ir 10 Mg Tab (Immediate Release)) 10 mg PO Q4H PRN PRN Reason: Severe Pain (Scale Score 7-10) Stop: 04/21/25 21:21 Last Admin: 04/07/25 23:43 Dose: 10 mg Documented By: SULTANA Pramipexole Dihydrochloride (Pramipexole Dihydrochlo 0.5 Mg Tab) 1 mg PO TID [facility] Stop: 05/07/25 20:59 Last Admin: 04/08/25 08:37 Dose: 1 mg Documented By: Admin: 04/07/25 22:00 Dose: 1 mg Documented By: HARPER Propranolol HCl (Propranolol Hcl 20 Mg Tab) 20 mg PO AMHS [facility] Stop: 05/07/25 20:59 Last Admin: 04/08/25 08:38 Dose: 20 mg Documented By: Admin: 04/07/25 22:00 Dose: 20 mg Documented By: HARPER Trazodone HCl (Trazodone Hcl 50 Mg Tab) 50 mg PO HS [facility] Stop: 05/07/25 20:59 Last Admin: 04/07/25 22:01 Dose: 50 mg Documented By: HARPER Umeclidinium/Vilanterol (Umeclidinium/Vilanterol 62.5/25mcg 7 Puffs/Inhaler) 1 puffs INH DAILY [facility]AN[facility] Stop: 05/08/25 08:59 Last Admin: 04/08/25 09:33 Dose: 1 puffs Documented By: TOMAS Discontinued Medications Acetaminophen (Ofirmev) 1,000 mg in 100 mls @ 400 mls/hr IV NOW STA Stop: 04/07/25 13:31 Last Admin: 04/07/25 13:23 Dose: Not Given Documented By: JE Sodium Chloride (Nss) 1,000 mls @ 999 mls/hr IV .Q1H1M ONE Stop: 04/07/25 14:17 Last Infusion: 04/07/25 14:55 Dose: Infused Documented By: Admin: 04/07/25 13:23 Dose: 999 mls/hr Documented By: JE Potassium Chloride (K Kyaw / Wtr) 10 meq in 100 mls @ 100 mls/hr IV ONE ONE Stop: 04/07/25 15:39 Last Infusion: 04/07/25 16:52 Dose: Infused Documented By: Admin: 04/07/25 15:07 Dose: 100 mls/hr Documented By: TDJd Sodium Chloride (Nss) 500 mls @ 999 mls/hr IV .Q31M ONE Stop: 04/07/25 15:10 Last Infusion: 04/07/25 15:54 Dose: Infused Documented By: Admin: 04/07/25 15:06 Dose: 999 mls/hr Documented By: TDM Sodium Chloride (Nss) 1,000 mls @ 60 mls/hr IV .[id number] [facility] Stop: 04/10/25 19:50 Last Infusion: 04/08/25 08:36 Dose: 0 mls/hr Documented By: Admin: 04/07/25 20:20 Dose: 60 mls/hr Documented By: HARPER Potassium Chloride (K [place]aw / Wtr) 10 meq in 100 mls @ 100 mls/hr IV Q1H [facility] Stop: 04/08/25 10:14 Last Admin: 04/08/25 09:30 Dose: 100 mls/hr Documented By: TOMAS Ioversol (Optiray 320 100ml) 94 ml IV ONCE ONE Stop: 04/07/25 13:34 Last Admin: 04/07/25 13:33 Dose: 94 ml Documented By: ROBERT Metoclopramide HCl (Metoclopramide Hcl Inj 5 Mg/Ml 2 Ml Vial) 10 mg IV NOW STA Stop: 04/07/25 16:19 Last Admin: 04/07/25 16:28 Dose: 10 mg Documented By: KILEY Morphine Sulfate (Morphine Sulfate 2 Mg/Ml Carp) 2 mg IV NOW STA Stop: 04/07/25 13:57 Last Admin: 04/07/25 14:09 Dose: 2 mg Documented By: MUMTAZ Morphine Sulfate (Morphine Sulfate 2 Mg/Ml Carp) 2 mg IV NOW STA Stop: 04/07/25 14:59 Last Admin: 04/07/25 15:06 Dose: 2 mg Documented By: MUMTAZ Morphine Sulfate (Morphine Sulfate Cr 15 Mg Tabcr) 15 mg PO NOW STA Stop: 04/07/25 21:29 Last Admin: 04/07/25 21:53 Dose: 15 mg Documented By: HARPER Ondansetron HCl (Ondansetron Inj 2 Mg/Ml 2 Ml Vial) 4 mg IV NOW STA Stop: 04/07/25 13:57 Last Admin: 04/07/25 14:09 Dose: 4 mg Documented By: MUMTAZ Potassium Chloride (Potassium Chloride Crtab 20 Meq Tabcr) 20 meq PO NOW STA Stop: 04/07/25 14:41 Last Admin: 04/07/25 15:06 Dose: 20 meq Documented By: EVAM Trazodone HCl (Trazodone Hcl 50 Mg Tab) 50 mg PO NOW ONE Stop: 04/08/25 01:45 Last Admin: 04/08/25 01:56 Dose: 50 mg Documented By: SULTANA Discharge Plan Visit Data Chief Complaint: Rectal Bleed Stated Complaint: BLEEDING AND ANAL DISCHARGE ED Provider: Lindsay Pagan ED Midlevel Provider: Kait Díaz Discharge Problem: Rectal bleeding, Abdominal pain, Confusion Patient Disposition: Admitted As Inpatient Condition: Good Discharge Instructions Interventions: ED Discharge Assessment Last Done: 04/07/25 19:51 Discharge Problem: Abdominal pain Qualifiers: Abdominal location: generalized Qualified Code(s): R10.84 - Generalized abdominal pain
[2025-04-07] MEDS: ACETAMINOPHEN 1,000 MG/100 ML VIAL IV STA (13:23)
[2025-04-07] MEDS: SODIUM CHLORIDE 0.9% 1,000 ML IV ONE (13:23)
[2025-04-07] MEDS: OPTIRAY 320 100ml IV ONE (13:33)
--- NOTE | 2025-04-07 13:51 | CT Scan Report ---
ABDOMEN AND PELVIS CT WITH IV CONTRAST CT DOSE: 792.24 mGy.cm HISTORY: lower abdominal pain, heme + stool, hx anal ca TECHNIQUE: Multiaxial CT images of the abdomen and pelvis were performed following the IV administrat ion of 90 cc of Optiray, A dose lowering technique was utilized adhering to the principles of ALARA. COMPARISON STUDY: 04/09/2024 FINDINGS: ABDOMEN: Gallbladder is surgically absent. Liver, spleen, pancreas, are unremarkable. Stable hypodens e bilateral adrenal nodules measuring 5 cm on the left 4 cm on the right. Kidneys show no hydronephro sis or calculi. There are scattered atherosclerotic calcifications. No abdominal aortic aneurysm. Pelvis: Stable right lower quadrant ostomy with small peristomal hernia containing a few bowel loops. There is mild diffuse wall thickening at the colon which could represent mild colitis. There are a f ew small areas of ill-defined increased density within the lumen of the colon, largest in the rectum which could represent small amounts of clot or hemorrhage. No other bowel inflammation or obstruction seen. No free fluid, free air, or abscess. No enlarged adenopathy. Urinary bladder is nondistended. Osseous structures: There is diffuse lumbar degenerative disc disease. IMPRESSION: 1. Findings suggestive of mild diffuse colitis with a few small areas of increased density which coul d represent small clots or trace hemorrhage. 2. No bowel obstruction. 3. Otherwise as described. ACT 112: Negative or not required by law. The above report was generated using voice recognition software. It may contain grammatical, syntax o r spelling errors. Electronically signed by: Bo Swann M.D. 04/07/2025 1:49 PM
[2025-04-07] MEDS: ONDANSETRON INJ 2 MG/ML 2 ML VIAL IV STA (14:09)
[2025-04-07] MEDS: MoRPHine SULFATE 2 MG/ML CARP IV STA ×2 (14:09→15:06)
[2025-04-07] MEDS: SODIUM CHLORIDE 0.9% 500 ML IV ONE (15:06)
[2025-04-07] MEDS: POTASSIUM CHLORIDE CRTAB 20 MEQ TABCR PO STA (15:06)
[2025-04-07] MEDS: POTASSIUM CHLORIDE / WTR 10 MEQ/100 ML PLCT IV ONE (15:07)
[2025-04-07] MEDS: METOCLOPRAMIDE HCL INJ 5 MG/ML 2 ML VIAL IV STA (16:28)
--- NOTE | 2025-04-07 18:11 | History & Physical Report ---
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 Hemoglobin is stable. She denies syncope. She states this has occurred off and on for several days now. Gastroenterology consultation requested (2) Colostomy status: Plan: Previous surgery for squamous cell cancer of the anus. Colostomy fluid is dark brown liquid with no evidence of overt blood. (3) COPD (chronic obstructive pulmonary disease): Plan: Stable. Nebulizers as needed (4) Type 2 diabetes mellitus: Plan: Clear liquid diet for now. Sliding scale coverage (5) Opioid dependence: Plan: Chronic opioid use at home. Morphine will be administered intravenously as needed Plan To be determined History of Present Illness Chief Complaint: Rectal bleeding, abdominal discomfort Primary Care Provider: Sukh Holman MD 69-year-old white female with a history of squamous cell cancer of the anus status post resection in the past and colostomy. She is currently being treated for lung cancer by the [facility] oncologist. She states she has had bloody rectal drainage off-and-on for several days, confirmed by her son who is at the bedside. She also has abdominal pain and some nausea but denies vomiting. Colostomy is functioning well and there has been no bloody drainage in the colostomy bag. She came to the ED for evaluation. CT scan of the abdomen and pelvis reveals evidence of colitis with some luminal densities seen which could be clots. No obstruction. Current hemoglobin is 12. Potassium is slightly low at 3.3. She denies any syncope. She is admitted for further evaluation and treatment Allergies Allergy/AdvReac Type Severity Reaction Status Date / Time adhesive AdvReac Intermediate ITCHY RASH Verified 12/21/24 16:48 Home Medications Medication Instructions Recorded Confirmed Type aspirin 81 mg tablet,delayed 81 mg PO QAM 02/26/19 02/15/25 History release atorvastatin 20 mg tablet 0 mg PO DAILY 02/26/19 02/15/25 History fluticasone propionate 50 2 spray intranasal QAM PRN Allergy 02/26/19 02/15/25 History mcg/actuation nasal Symptoms spray,suspension (Flonase Allergy Relief) metformin 1,000 mg tablet 0 mg PO BIDM 02/26/19 02/15/25 History trazodone 50 mg tablet 50 mg PO HS 02/26/19 02/15/25 History albuterol sulfate 90 mcg/actuation 2 puff inhalation Q4H PRN 03/31/19 02/15/25 History aerosol inhaler Shortness Of Breath Or Wheezing ondansetron HCl 8 mg tablet 8 mg PO Q8H PRN Nausea 05/29/20 02/15/25 History fluticasone fur. 200 mcg-umeclid 1 inh inhalation DAILY 03/02/22 02/15/25 History 62.5 mcg-vilant 25 mcg inhalat.powder (Trelegy Ellipta) propranolol 20 mg tablet 20 mg PO AMHS 03/02/22 02/15/25 History furosemide 40 mg tablet (Lasix) 40 mg PO DAILY PRN Edema 03/26/22 02/15/25 History bupropion HCl 300 mg 24 hr tablet, 300 mg PO QAM 12/24/23 02/15/25 History extended release (Wellbutrin XL) gabapentin 300 mg capsule 0 mg PO TID 12/24/23 02/15/25 History nystatin 100,000 unit/gram topical 1 applic topical TID PRN as needed 12/24/23 02/15/25 History powder (Klayesta) tizanidine 2 mg tablet 2 mg PO Q6H PRN Pain 04/09/24 02/15/25 History magnesium 200 mg tablet 200 mg PO QAM 05/16/24 02/15/25 History cyanocobalamin (vitamin B-12) 1,000 mcg PO QAM 09/07/24 02/15/25 History 1,000 mcg tablet (Vitamin B-12) oxycodone 10 mg tablet 10 mg PO Q4H PRN Severe Pain 09/07/24 02/15/25 History (Scale Score 7-10) pramipexole 1 mg tablet 1 mg PO TID 09/07/24 02/15/25 History albuterol sulfate 0.63 mg/3 mL 0.63 mg inhalation Q6H PRN Wheezing 10/24/24 02/15/25 History solution for nebulization dexamethasone 4 mg tablet 4 mg PO DIRECTED PRN PRIOR TO 12/21/24 02/15/25 History CHEMO folic acid 1 mg tablet 1 mg PO DAILY 12/21/24 02/15/25 History morphine 15 mg tablet,extended 0 mg PO BID 12/21/24 02/15/25 History release pantoprazole 40 mg tablet,delayed 40 mg PO DAILY PRN Heartburn 12/21/24 02/15/25 History release prochlorperazine maleate 10 mg 10 mg PO Q6H PRN NAUSEA/VOMITING 12/21/24 02/15/25 History tablet valacyclovir 1 gram tablet 2,000 mg PO BID PRN COLD SORES 12/21/24 02/15/25 History (Valtrex) NEEDED potassium chloride 10 mEq 20 meq (2 x 10 mEq) PO DAILY #6 12/22/24 02/15/25 Rx capsule,extended release caps benzonatate 100 mg capsule 100 mg PO TID PRN cough #10 caps 02/18/25 Rx loperamide 2 mg capsule 4 mg (2 x 2 mg) PO DAILY PRN loose 02/18/25 Rx stool/increased ostomy output #14 caps Past Med/Surg History Problem List (Updated 04/07/25 @ 18:10 by Nikita Amaya MD) Opioid dependence Type 2 diabetes mellitus COPD (chronic obstructive pulmonary disease) Colostomy status Rectal bleeding Lung cancer hx L sided lesions, s/p XRT; now with R lesions on imaging Anemia Chronic hypoxemic respiratory failure (Acute) Multiple pulmonary nodules determined by computed tomography of lung Malignant neoplasm of upper lobe, left bronchus or lung Nausea & vomiting (Acute) Right sided abdominal pain (Acute) SBO (small bowel obstruction) (Acute) 03/2024 GI bleed Acute hyponatremia (Acute) 12/2023 Acute GI bleeding (Acute) 12/2023 Acute exacerbation of chronic obstructive pulmonary disease (Acute) 08/2023 Acute respiratory failure with hypoxia and hypercarbia (Acute) duplicafe Lactic acidosis 08/2023 Hypotension 08/2023 Acute hypoxic respiratory failure 3L O2 PRN Primary cancer of left upper lobe of lung (Chronic 11/26/22) Tachycardia 02/2022 Ileostomy present Hypoxia on home O2; 3L PRN Essential tremor DVT prophylaxis Chronic back pain HLD (hyperlipidemia) DM type 2 (diabetes mellitus, type 2) Parastomal hernia with obstruction and without gangrene (Acute) COPD (chronic obstructive pulmonary disease) Fibromyalgia 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) Medical History History of ectopic Hyponatremia chronic hyponatremia; PCP and cardio monitoring (HFpEF) heart failure with preserved ejection fraction HTN (hypertension) CKD (chronic kidney disease), stage III Cigarette smoker pt continues to smoke Hyperlipidemia Fibromyalgia Lung cancer hx L sided lesions, s/p XRT; now with R lesions on imaging On home O2 uses 3L O2 PRN (usually wears every night) Ileostomy present hx of anal ca Essential tremor Primary cancer of left upper lobe of lung dx 01/2023; tx with 5 XRT Chronic pain DMII (diabetes mellitus, type 2) COPD (chronic obstructive pulmonary disease) uses 3L O2 PRN (usually wears every night) Insomnia GERD (gastroesophageal reflux disease) DJD (degenerative joint disease) Diabetic neuropathy Bilateral hands and feet Squamous cell carcinoma of anal canal Diagnosed 05/05/2019. Invasive, moderately differentiated, P-16 positive, Positive margin. s/p ileostomy, completed mitomycin x1 dose on 06/14/2019 and Xeloda along with radiation treatment between 06/09/2019-07/28/2019 Breast infection in female Hx of chronic left breast infections for 20 years; no current issues per pt Heart murmur per 12/2023 ECHO: mild aortic sclerosis without aortic stenosis. mild TR. Degenerative disc disease History of hemorrhoids Low back pain with right-sided sciatica multiple pain management injections with Dr. Archer Hip pain, chronic right Surgical History Hx of foot surgery left History of ankle surgery left History of carpal tunnel surgery History of tubal ligation History of hand surgery middle finger "knuckle" surgery History of tooth extraction Hx of cataract extraction right/left Hx of ileostomy 2020 S/P trigger finger release Status post trigger finger release History of shoulder surgery right 2009, ;left-2012. History of hernia repair History of breast surgery nipple areola reconstruction, s/p multiple infections History of neck surgery excision of lipoma-08/23/17 History of cholecystectomy 08/17/16 History of arthroscopy of right knee History of arthroplasty of left knee History of rectal abscess with I &D 05/05/19 History of colonoscopy 2010, 2016 History of breast biopsy 1994, 2001 History of hysterectomy age 37 History of hemorrhoidectomy 02/17/19 Family History Grandmother (Maternal) , in 60's Lung cancer Brother No problems noted. Sister No problems noted. Daughter No problems noted. Son No problems noted. Other No family history of adverse response to anesthesia No pertinent family history in first degree relatives Social History Smoking Status: Current every day smoker Tobacco Type: Cigarettes packs per day: 1; Cigarettes Per Day: less than 10 per day- advised; Second Hand Exposure: No; Do You Dip or Chew Tobacco: No; Hx Alcohol Use: No Hx Substance Use: No Preferred Language: Nigerien Communication Ability: Effective Visual Impairment: Limited Hearing Ability: Hard of Hearing Financial Services Director Required: No Beliefs That Will Affect Care: None marital status: Current Living Situation: Significant Other Current Living Situation Comment: boyfriend current occupational status: disabled 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 Colostomy appears to be functioning well with brown liquid and no overt hematochezia seen in the bag GUno urinary retention, no urinary incontinence, no dysuria, no hematuria Musculoskeletalno joint pain, no muscle tenderness Skinno bruising, no rashes, no pruritus Neurono isolated weakness, no paresthesia, no weakness Psychno depression, no anxiety Physical Exam 2 Physical Exam: General-alert and oriented x3, no fever, no chills HEENT-head atraumatic and normocephalic, pupils equal and reactive to light, extraocular muscles intact Neck-no lymphadenopathy or thyromegaly, trachea midline Chest-clear to auscultation. No rales, wheezing or rhonchi Cardiac-regular rate and rhythm, normal S1 and S2 Abdomen no hepatosplenomegaly. Functioning colostomy right lower quadrant. Diffusely tender with active bowel sounds. No palpable masses. No rebound or guarding Extremities-no cyanosis, clubbing, or edema Neuro-cranial nerves II through XII intact, motor and sensory function within normal limits, strength symmetrical, no focal deficits Psych-flat affect Results & Data Results & Data Vital Signs (Past 12 Hours) Vital Signs Temp Pulse Pulse Resp BP BP Pulse Ox 04/07/25 17:58 97 H 20 153/86 H 98 04/07/25 17:00 90 18 97 04/07/25 15:30 78 15 99 04/07/25 15:30 140/75 04/07/25 15:30 140/75 04/07/25 15:30 140/75 04/07/25 15:30 140/75 04/07/25 15:30 140/75 04/07/25 15:00 79 12 99 04/07/25 15:00 129/82 04/07/25 13:00 130/86 99 04/07/25 12:40 90 04/07/25 11:28 36.8 C 101 H 20 116/73 95 O2 Del Method O2 Flow Rate 04/07/25 17:58 Room Air 04/07/25 17:00 Nasal Cannula 3 04/07/25 15:30 04/07/25 15:30 04/07/25 15:30 04/07/25 15:30 04/07/25 15:30 04/07/25 15:30 04/07/25 15:00 04/07/25 15:00 04/07/25 13:00 Nasal Cannula 3 04/07/25 12:40 04/07/25 11:28 Nasal Cannula 3 Laboratory Results 04/07/25 11:45 04/07/25 11:45 Code Status & VTE Plan Code Status Full code VTE Prophylaxis Plan VTE Prophylaxis will be ordered: Yes PG Care Time/CCT Total # of Minutes Spent Total Time Spent with Patient: Total time spent is greater than 50% in coordination of care (as documented) at patient's floor/unit and/or counseling patient: Coding Level of Care Code 78629 INT INP/OBS CARE 3/75MIN Diagnoses Rectal bleeding K62.5 Colostomy status Z93.3 COPD (chronic obstructive pulmonary disease) J44.9 Type 2 diabetes mellitus E11.9 Opioid dependence F11.20
[2025-04-07 18:33] LABS: Appearance Urine Clear (Clear); Bacteria Urine Automated None Seen (None Seen); Cast Urine Automated 0-2 /lpf (0-2); Glucose Urine UA Negative (Negative); WBC Urine Automated 0-5 /hpf (0-5)
[2025-04-07] MEDS ORDERED: GLUCOSE 10 TAB/TUBE PO PRN (19:51)
[2025-04-07] MEDS ORDERED: GLUCAGON FOR INJ 1 MG VIAL SQ PRN (19:51)
[2025-04-07] MEDS ORDERED: DEXTROSE 50% 50 ML SYRINGE IV PRN (19:51)
[2025-04-07] MEDS ORDERED: GLUCOSE 40% GEL 15 GM TUBE PO PRN (19:51)
[2025-04-07] MEDS ORDERED: CARBOHYDRATES FOR HYPOGLYCEMIA PO PRN (19:51)
[2025-04-07] MEDS ORDERED: ALBUTEROL 0.083% NEBU SOLN 3 ML VIAL INH PRN (20:17)
[2025-04-07] MEDS: SODIUM CHLORIDE 0.9% 1,000 ML IV SCH (20:20)
[2025-04-07] MEDS: MoRPHine SULFATE 2 MG/ML CARP IV PRN (20:20)
[2025-04-07] MEDS: INSULIN ASPART PER UNIT CHARGE SC SCH (20:51)
--- NOTE | 2025-04-07 21:47 | Communication Note ---
Date of Service: April 07, 2025 Patient experiencing significant discomfort. Review of home medications and PDMP indicate that she is on Morphine ER 15mg po BID as well as Oxycodone 10mg po q 4 hours PRN. She confirmed these medications with me. States that she typically needs the Oxycodone every 4 hours at home. -Will order her home opiates -Continue Morphine 1mg IV q 3 hours as needed for breakthrough pain
[2025-04-07] MEDS: MoRPHine SULFATE CR 15 MG TABCR PO STA (21:53)
[2025-04-07] MEDS: GABAPENTIN 300 MG CAP PO SCH (22:00)
[2025-04-07] MEDS: PRAMIPEXOLE DIHYDROCHLO 0.5 MG TAB PO SCH (22:00)
[2025-04-07] MEDS: PROPRANOLOL HCL 20 MG TAB PO SCH (22:00)
--- NOTE | 2025-04-07 22:19 | XRay Report ---
Exam(s): XR CXR 1 VIEW EXAM: XR Chest, 1 View CLINICAL HISTORY: COPD and rectal bleed. TECHNIQUE: Frontal view of the chest. COMPARISON: Chest radiographs 02/15/2025 FINDINGS: Lungs: Unremarkable. No consolidation. Pleural space: Unremarkable. No pneumothorax. Heart: Unremarkable. No cardiomegaly. Mediastinum: Unremarkable. Normal mediastinal contour. Bones/joints: There are degenerative changes of the spine. No acute fracture. IMPRESSION: No acute findings in the chest. Electronically signed by: Cynthia Kirkland MD 04/07/25 22:18 PM
[2025-04-07 22:56] LABS: Hematocrit (blood only) 33.6 % (37.0-47.0); Hemoglobin 11.0 g/dL (12.0-16.0)
[2025-04-08 05:46] LABS: Hematocrit (blood only) 33.7 % (37.0-47.0); Hemoglobin 11.1 g/dL (12.0-16.0); Immature Granulocytes # (auto) 0.03 K/uL (0.01-0.20); Immature Granulocytes % (auto) 0.5 %; Mean Corpuscular Hemoglobin 32.3 pg (25.0-34.0); Mean Corpuscular Volume 98.0 fL (80.0-100.0); Platelet Count 207 K/uL (130-400); RDW Standard Deviation 53.9 fL (36.4-46.3); Red Blood Count 3.44 M/uL (4.20-5.40); White Blood Count 5.56 K/ul (4.8-10.8)
[2025-04-08 06:05] LABS: Anion Gap 7.0 (3-11); Blood Urea Nitrogen 7.0 mg/dl (6-23); Calcium 9.6 mg/dl (8.6-10.3); Carbon Dioxide 33.0 mmol/L (21-32); Chloride 97.0 mmol/L (98-107); Creatinine Clr Calc Pharmacy 49.3 ml/min; Glucose 92.0 mg/dl (70-99(Fasting)); Potassium 3.3 mmol/L (3.5-5.1); Sodium 137.0 mmol/L (136-145)
[2025-04-08] MEDS: POTASSIUM CHLORIDE 40 MEQ in SODIUM CHLORIDE 0.9% 1,000 ML IV SCH (08:36)
[2025-04-08] MEDS: MoRPHine SULFATE CR 15 MG TABCR PO SCH (08:37)
[2025-04-08] MEDS: MAGNESIUM OXIDE 400 MG TAB PO SCH (08:38)
[2025-04-08] MEDS: CYANOCOBALAMIN (B-12) 500 MCG TABLET PO SCH (08:39)
[2025-04-08] MEDS: FOLIC ACID 1 MG TAB PO SCH (08:39)
[2025-04-08] MEDS: ATORVASTATIN 20 MG TAB PO SCH (08:39)
[2025-04-08] MEDS ORDERED: NON-FORMULARY MEDICATION (Fluticasone-Umeclidin-Vilanter [Trelegy Ellipta] 200-62.5-25 mcg INH SCH (09:00)
[2025-04-08] MEDS: PANTOprazole 40 MG/10 ML SYR IV SCH (09:23)
[2025-04-08] MEDS: POTASSIUM CHLORIDE / WTR 10 MEQ/100 ML PLCT IV SCH (09:30)
[2025-04-08] MEDS: UMECLIDINIUM/VILANTEROL 62.5/25MCG 7 PUFFS/INHALER INH SCH (09:33)
[2025-04-08] MEDS: FLUTICASONE FUROATE 200MCG 14 PUFFS/INHALER INH SCH (09:33)
--- NOTE | 2025-04-08 10:45 | Gastrointestinal Consultation ---
Date of Consultation April 08, 2025 Assessment & Plan (1) Rectal bleeding: Pleasant female with minimal rectal bleeding. I understand her concern with her history of anal cancer and do feel colonoscopy is warranted. She does not need to be in hospital for this as she is asymptomatic and her H/H are stable. She would prefer to go home and do this as an outpatient which is fine with me. She tells me that [facility] usually gets her in quickly when she needs something. I am not really clear as to how they prep her for her colonoscopies as everything she eats or drinks comes through her ileostomy, which is why it is better she has this with her regular GI team. History of Present Illness Reason for Consultation: rectal bleeding Attending Physician: Nikita Amaya MD History of Present Illness 69 year old female with a history of anal cancer many years ago, colovaginal fistula with diverting ileostomy who noted she had some rectal drainage and she saw blood with it. She does not usually have anything coming from her rectum due to her diverting ileostomy. She does not recall how she preps for her colonoscopies. Her last procedure was done in 2020 and she knows she is due for one soon. She has no abdominal pain. She doesn't know how many times she has passed blood but with her history she always "gets it checked out" when these things happen. CT suggests mild colitis. She denies NSAID usage. She has not seen blood in her ileal effluent. Allergies Allergy/AdvReac Type Severity Reaction Status Date / Time adhesive AdvReac Intermediate ITCHY RASH Verified 12/21/24 16:48 Home Medications Medication Instructions Recorded Confirmed Type aspirin 81 mg tablet,delayed 81 mg PO QAM 02/26/19 04/07/25 History release atorvastatin 20 mg tablet 0 mg PO DAILY 02/26/19 04/07/25 History fluticasone propionate 50 2 spray intranasal QAM PRN Allergy 02/26/19 04/07/25 History mcg/actuation nasal Symptoms spray,suspension (Flonase Allergy Relief) metformin 1,000 mg tablet 1,000 mg PO BIDM 02/26/19 04/07/25 History trazodone 50 mg tablet 50 mg PO HS 02/26/19 04/07/25 History albuterol sulfate 90 mcg/actuation 2 puff inhalation Q4H PRN 03/31/19 04/07/25 History aerosol inhaler Shortness Of Breath Or Wheezing ondansetron HCl 8 mg tablet 8 mg PO Q8H PRN Nausea 05/29/20 04/07/25 History fluticasone fur. 200 mcg-umeclid 1 inh inhalation DAILY 03/02/22 04/07/25 History 62.5 mcg-vilant 25 mcg inhalat.powder (Trelegy Ellipta) propranolol 20 mg tablet 20 mg PO AMHS 03/02/22 04/07/25 History furosemide 40 mg tablet (Lasix) 40 mg PO DAILY PRN Edema 03/26/22 04/07/25 History bupropion HCl 300 mg 24 hr tablet, 300 mg PO QAM 12/24/23 04/07/25 History extended release (Wellbutrin XL) gabapentin 300 mg capsule 0 mg PO TID 12/24/23 04/07/25 History nystatin 100,000 unit/gram topical 1 applic topical TID PRN as needed 12/24/23 04/07/25 History powder (Klayesta) tizanidine 2 mg tablet 2 mg PO Q6H PRN Pain 04/09/24 04/07/25 History magnesium 200 mg tablet 200 mg PO QAM 05/16/24 04/07/25 History cyanocobalamin (vitamin B-12) 1,000 mcg PO QAM 09/07/24 04/07/25 History 1,000 mcg tablet (Vitamin B-12) oxycodone 10 mg tablet 10 mg PO Q4H PRN Severe Pain 09/07/24 04/07/25 History (Scale Score 7-10) pramipexole 1 mg tablet 1 mg PO TID 09/07/24 04/07/25 History albuterol sulfate 0.63 mg/3 mL 0.63 mg inhalation Q6H PRN Wheezing 10/24/24 04/07/25 History solution for nebulization dexamethasone 4 mg tablet 4 mg PO DIRECTED PRN PRIOR TO 12/21/24 04/07/25 History CHEMO folic acid 1 mg tablet 1 mg PO DAILY 12/21/24 04/07/25 History morphine 15 mg tablet,extended 15 mg PO BID 12/21/24 04/07/25 History release pantoprazole 40 mg tablet,delayed 40 mg PO DAILY PRN Heartburn 12/21/24 04/07/25 History release prochlorperazine maleate 10 mg 10 mg PO Q6H PRN NAUSEA/VOMITING 12/21/24 04/07/25 History tablet valacyclovir 1 gram tablet 2,000 mg PO BID PRN COLD SORES 12/21/24 04/07/25 History (Valtrex) NEEDED potassium chloride 10 mEq 20 meq (2 x 10 mEq) PO DAILY #6 12/22/24 04/07/25 Rx capsule,extended release caps benzonatate 100 mg capsule 100 mg PO TID PRN cough #10 caps 02/18/25 04/07/25 Rx loperamide 2 mg capsule 4 mg (2 x 2 mg) PO DAILY PRN loose 02/18/25 04/07/25 Rx stool/increased ostomy output #14 caps Patient History Medical History Acute hyponatremia Hypokalemia 04/2024 Hypomagnesemia 04/2024 JOSEPHINE (acute kidney injury) 04/2024 2/2 SBO Elevated troponin I level History of ectopic Hyponatremia chronic hyponatremia; PCP and cardio monitoring (HFpEF) heart failure with preserved ejection fraction HTN (hypertension) CKD (chronic kidney disease), stage III Cigarette smoker pt continues to smoke Hyperlipidemia Fibromyalgia On home O2 uses 3L O2 PRN (usually wears every night) Ileostomy present hx of anal ca Essential tremor Primary cancer of left upper lobe of lung dx 01/2023; tx with 5 XRT Chronic pain DMII (diabetes mellitus, type 2) COPD (chronic obstructive pulmonary disease) uses 3L O2 PRN (usually wears every night) Insomnia GERD (gastroesophageal reflux disease) DJD (degenerative joint disease) Diabetic neuropathy Bilateral hands and feet Squamous cell carcinoma of anal canal Diagnosed 05/05/2019. Invasive, moderately differentiated, P-16 positive, Positive margin. s/p ileostomy, completed mitomycin x1 dose on 06/14/2019 and Xeloda along with radiation treatment between 06/09/2019-07/28/2019 Breast infection in female Hx of chronic left breast infections for 20 years; no current issues per pt Heart murmur per 12/2023 ECHO: mild aortic sclerosis without aortic stenosis. mild TR. Degenerative disc disease History of hemorrhoids Low back pain with right-sided sciatica multiple pain management injections with Dr. Cousins Hip pain, chronic right Surgical History Hx of foot surgery left History of ankle surgery left History of carpal tunnel surgery History of tubal ligation History of hand surgery middle finger "knuckle" surgery History of tooth extraction Hx of cataract extraction right/left Hx of ileostomy 2020 S/P trigger finger release Status post trigger finger release History of shoulder surgery right 2009, ;left-2012. History of hernia repair History of breast surgery nipple areola reconstruction, s/p multiple infections History of neck surgery excision of lipoma-08/23/17 History of cholecystectomy 08/17/16 History of arthroscopy of right knee History of arthroplasty of left knee History of rectal abscess with I &D 05/05/19 History of colonoscopy 2010, 2016 History of breast biopsy 1994, 2001 History of hysterectomy age 37 History of hemorrhoidectomy 02/17/19 Family History Grandmother (Maternal) , in 60's Lung cancer Brother No problems noted. Sister No problems noted. Daughter No problems noted. Son No problems noted. Other No family history of adverse response to anesthesia No pertinent family history in first degree relatives Social History Smoking Status: Current every day smoker Tobacco Type: Cigarettes packs per day: 1; Cigarettes Per Day: less than 10 per day- advised; Second Hand Exposure: No; Do You Dip or Chew Tobacco: No; Hx Alcohol Use: No Hx Substance Use: No Preferred Language: Latvian Communication Ability: Effective Visual Impairment: Limited Hearing Ability: Hard of Hearing Detention Deputy Required: No Beliefs That Will Affect Care: None marital status: Current Living Situation: Significant Other Current Living Situation Comment: boyfriend current occupational status: disabled 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 Feels Safe at Home: Yes Childhood Exposure to Second-Hand Smoke: Yes caffeine: Yes (mountain dew daily 2 liters a day) Dental Care, Regularly: No Assistive Devices: Glasses and Oxygen - Continuous Physical Exam Physical Exam: Very pleasant female in no distress Constitutional: WD/WN, vitals as above Neck: trachea midline, no thyromegaly Respiratory: normal respiratory effort, lungs clear to auscultation Cardiovascular: RRR, no murmur, no edema Gastrointestinal (Abdomen): normal bowel sounds, soft, nontender, no hepatosplenomegaly ileostomy in right lower abdomen Results & Data Vital Signs (Past 12 Hours) Vital Signs Pulse Resp BP Pulse Ox O2 Del Method O2 Flow Rate 04/08/25 08:00 106 H 18 128/77 96 Room Air 04/08/25 07:00 157 H 20 95 Nasal Cannula 3 04/08/25 06:00 77 14 103/58 L 96 Nasal Cannula 3 04/08/25 05:30 82 16 04/08/25 05:12 92 H 18 118/54 L 04/08/25 05:00 90 15 04/08/25 04:17 88 04/08/25 04:00 80 15 97 Nasal Cannula 3 04/08/25 03:30 85 19 97 Nasal Cannula 3 04/08/25 03:00 83 12 99 Nasal Cannula 3 04/08/25 02:00 82 22 123/71 95 Nasal Cannula 3 04/08/25 00:30 82 25 H 04/08/25 00:00 85 19 04/07/25 23:33 90 19 04/07/25 23:32 144/79 H 04/07/25 23:00 95 H 15 Laboratory Results 04/08/25 04/08/25 04/07/25 Range/Units 07:32 04:58 22:41 WBC 5.56 (4.8-10.8) K/ul RBC 3.44 L (4.20-5.40) M/uL Hgb 11.1 L 11.0 L (12.0-16.0) g/dL Hct 33.7 L 33.6 L (37.0-47.0) % MCV 98.0 (80.0-100.0) fL MCH 32.3 (25.0-34.0) pg MCHC 32.9 (32.0-36.0) g/dL RDW Std Deviation 53.9 H (36.4-46.3) fL RDW Coeff of Chelle 15.0 H (11.5-14.5) % Plt Count 207 (130-400) K/uL MPV 8.7 L (9.4-12.4) fL Immature Gran % (Auto) 0.5 % Neut % (Auto) 72.6 % Lymph % (Auto) 14.7 % Slope % (Auto) 11.0 % Eos % (Auto) 0.7 % Baso % (Auto) 0.5 % Neut # (Auto) 4.03 (1.40-6.50) K/uL Lymph # (Auto) 0.82 L (1.20-3.40) K/uL Slope # (Auto) 0.61 H (0.11-0.59) K/uL Eos # (Auto) 0.04 (0.00-0.50) K/uL Baso # (Auto) 0.03 (0.00-0.20) K/uL Immature Gran # (Auto) 0.03 (0.01-0.20) K/uL PT (9.0-12.0) Seconds INR (0.9-1.1) APTT (21-31) Seconds PTT Ratio Sodium 137 (136-145) mmol/L Potassium 3.3 L (3.5-5.1) mmol/L Chloride 97 L (98-107) mmol/L Carbon Dioxide 33 H (21-32) mmol/L Anion Gap 7 (3-11) BUN 7 (6-23) mg/dl Creatinine 0.93 (0.6-1.2) mg/dl Est Cr Clr Drug Dosing 49.3 ml/min eGFR 66.53 BUN/Creatinine Ratio 7.5 L (10-20) Glucose 92 (70-99(Fasting)) mg/dl POC Glucose 94 (70-99) mg/dl Calcium 9.6 (8.6-10.3) mg/dl Total Bilirubin (0.2-1.0) mg/dl AST (13-39) U/L ALT (7-52) U/L Alkaline Phosphatase (34-104) U/L Troponin I High Sens (0-14) pg/ml Total Protein (6.0-8.3) gm/dl Albumin (3.4-5.0) gm/dl Globulin (2.5-4.0) gm/dl Albumin/Globulin Ratio (0.9-2) Urine Color Urine Appearance (Clear) Urine pH (4.5-7.5) Ur Specific [place] (1.000-1.030) Urine Protein (Negative) Urine Glucose (UA) (Negative) Urine Ketones (Negative) Urine Blood (Negative) Urine Nitrite (Negative) Urine Bilirubin (Negative) Urine Urobilinogen (Negative) Ur Leukocyte Esterase (Negative) Urine WBC (Auto) (0-5) /hpf Urine RBC (Auto) (0-2) /hpf U Hyaline Cast (Auto) (0-2) /lpf U Epithel Cells (Auto) (0-2) /hpf Urine Bacteria (Auto) (None Seen) Urine Comment POC Stool Occult Blood (Negative) Blood Type Antibody Screen 04/07/25 04/07/25 04/07/25 Range/Units 20:19 18:06 13:17 WBC (4.8-10.8) K/ul RBC (4.20-5.40) M/uL Hgb (12.0-16.0) g/dL Hct (37.0-47.0) % MCV (80.0-100.0) fL MCH (25.0-34.0) pg MCHC (32.0-36.0) g/dL RDW Std Deviation (36.4-46.3) fL RDW Coeff of Chelle (11.5-14.5) % Plt Count (130-400) K/uL MPV (9.4-12.4) fL Immature Gran % (Auto) % Neut % (Auto) % Lymph % (Auto) % [place] % (Auto) % Eos % (Auto) % Baso % (Auto) % Neut # (Auto) (1.40-6.50) K/uL Lymph # (Auto) (1.20-3.40) K/uL [place] # (Auto) (0.11-0.59) K/uL Eos # (Auto) (0.00-0.50) K/uL Baso # (Auto) (0.00-0.20) K/uL Immature Gran # (Auto) (0.01-0.20) K/uL PT (9.0-12.0) Seconds INR (0.9-1.1) APTT (21-31) Seconds PTT Ratio Sodium (136-145) mmol/L Potassium (3.5-5.1) mmol/L Chloride (98-107) mmol/L Carbon Dioxide (21-32) mmol/L Anion Gap (3-11) BUN (6-23) mg/dl Creatinine (0.6-1.2) mg/dl Est Cr Clr Drug Dosing ml/min eGFR BUN/Creatinine Ratio (10-20) Glucose (70-99(Fasting)) mg/dl POC Glucose 141 H (70-99) mg/dl Calcium (8.6-10.3) mg/dl Total Bilirubin (0.2-1.0) mg/dl AST (13-39) U/L ALT (7-52) U/L Alkaline Phosphatase (34-104) U/L Troponin I High Sens (0-14) pg/ml Total Protein (6.0-8.3) gm/dl Albumin (3.4-5.0) gm/dl Globulin (2.5-4.0) gm/dl Albumin/Globulin Ratio (0.9-2) Urine Color Yellow Urine Appearance Clear (Clear) Urine pH 8.5 H (4.5-7.5) Ur Specific [place] > 1.045 H (1.000-1.030) Urine Protein 2+ H (Negative) Urine Glucose (UA) Negative (Negative) Urine Ketones 2+ H (Negative) Urine Blood Negative (Negative) Urine Nitrite Negative (Negative) Urine Bilirubin Negative (Negative) Urine Urobilinogen Negative (Negative) Ur Leukocyte Esterase Negative (Negative) Urine WBC (Auto) 0-5 (0-5) /hpf Urine RBC (Auto) 3-5 H (0-2) /hpf U Hyaline Cast (Auto) 0-2 (0-2) /lpf U Epithel Cells (Auto) 6-10 H (0-2) /hpf Urine Bacteria (Auto) None Seen (None Seen) Urine Comment POC Stool Occult Blood Positive A (Negative) Blood Type Antibody Screen 04/07/25 Range/Units 11:45 WBC 5.25 (4.8-10.8) K/ul RBC 3.75 L (4.20-5.40) M/uL Hgb 12.0 (12.0-16.0) g/dL Hct 36.6 L (37.0-47.0) % MCV 97.6 (80.0-100.0) fL MCH 32.0 (25.0-34.0) pg MCHC 32.8 (32.0-36.0) g/dL RDW Std Deviation 54.2 H (36.4-46.3) fL RDW Coeff of Chelle 15.1 H (11.5-14.5) % Plt Count 233 (130-400) K/uL MPV 8.4 L (9.4-12.4) fL Immature Gran % (Auto) % Neut % (Auto) % Lymph % (Auto) % [place] % (Auto) % Eos % (Auto) % Baso % (Auto) % Neut # (Auto) (1.40-6.50) K/uL Lymph # (Auto) (1.20-3.40) K/uL [place] # (Auto) (0.11-0.59) K/uL Eos # (Auto) (0.00-0.50) K/uL Baso # (Auto) (0.00-0.20) K/uL Immature Gran # (Auto) (0.01-0.20) K/uL PT 10.3 (9.0-12.0) Seconds INR 1.0 (0.9-1.1) APTT 26 (21-31) Seconds PTT Ratio 1.0 Sodium 137 (136-145) mmol/L Potassium 3.3 L (3.5-5.1) mmol/L Chloride 92 L (98-107) mmol/L Carbon Dioxide 37 H (21-32) mmol/L Anion Gap 8 (3-11) BUN 7 (6-23) mg/dl Creatinine 1.03 (0.6-1.2) mg/dl Est Cr Clr Drug Dosing 44.5 ml/min eGFR 58.86 BUN/Creatinine Ratio 6.8 L (10-20) Glucose 132 H (70-99(Fasting)) mg/dl POC Glucose (70-99) mg/dl Calcium 10.5 H (8.6-10.3) mg/dl Total Bilirubin 0.5 (0.2-1.0) mg/dl AST 13 (13-39) U/L ALT 8 (7-52) U/L Alkaline Phosphatase 50 (34-104) U/L Troponin I High Sens 7.0 (0-14) pg/ml Total Protein 7.4 (6.0-8.3) gm/dl Albumin 4.4 (3.4-5.0) gm/dl Globulin 3.0 (2.5-4.0) gm/dl Albumin/Globulin Ratio 1.5 (0.9-2) Urine Color Urine Appearance (Clear) Urine pH (4.5-7.5) Ur Specific [place] (1.000-1.030) Urine Protein (Negative) Urine Glucose (UA) (Negative) Urine Ketones (Negative) Urine Blood (Negative) Urine Nitrite (Negative) Urine Bilirubin (Negative) Urine Urobilinogen (Negative) Ur Leukocyte Esterase (Negative) Urine WBC (Auto) (0-5) /hpf Urine RBC (Auto) (0-2) /hpf U Hyaline Cast (Auto) (0-2) /lpf U Epithel Cells (Auto) (0-2) /hpf Urine Bacteria (Auto) (None Seen) Urine Comment POC Stool Occult Blood (Negative) Blood Type O Positive Antibody Screen NEGATIVE Diagnostic Findings Abdomen/Pelvis CT 04/07/25 13:[address] WITH IV CONTRAST CT DOSE: 792.24 mGy.cm HISTORY: lower abdominal pain, heme + stool, hx anal ca TECHNIQUE: Multiaxial CT images of the abdomen and pelvis were performed following the IV administration of 90 cc of Optiray, A dose lowering technique was utilized adhering to the principles of ALARA. COMPARISON STUDY: 04/09/2024 FINDINGS: ABDOMEN: Gallbladder is surgically absent. Liver, spleen, pancreas, are unremarkable. Stable hypodense bilateral adrenal nodules measuring 5 cm on the left 4 cm on the right. Kidneys show no hydronephrosis or calculi. There are scattered atherosclerotic calcifications. No abdominal aortic aneurysm. Pelvis: Stable right lower quadrant ostomy with small peristomal hernia containing a few bowel loops. There is mild diffuse wall thickening at the colon which could represent mild colitis. There are a few small areas of ill-defined increased density within the lumen of the colon, largest in the rectum which could represent small amounts of clot or hemorrhage. No other bowel inflammation or obstruction seen. No free fluid, free air, or abscess. No enlarged adenopathy. Urinary bladder is nondistended. Osseous structures: There is diffuse lumbar degenerative disc disease. IMPRESSION: 1. Findings suggestive of mild diffuse colitis with a few small areas of increased density which could represent small clots or trace hemorrhage. 2. No bowel obstruction. 3. Otherwise as described. ACT 112: Negative or not required by law. The above report was generated using voice recognition software. It may contain grammatical, syntax or spelling errors. Electronically signed by: Bo Swann M.D. 04/07/2025 1:49 PM Chest X-Ray 04/07/25 19:51 Exam(s): XR CXR 1 VIEW EXAM: XR Chest, 1 View CLINICAL HISTORY: COPD and rectal bleed. TECHNIQUE: Frontal view of the chest. COMPARISON: Chest radiographs 02/15/2025 FINDINGS: Lungs: Unremarkable. No consolidation. Pleural space: Unremarkable. No pneumothorax. Heart: Unremarkable. No cardiomegaly. Mediastinum: Unremarkable. Normal mediastinal contour. Bones/joints: There are degenerative changes of the spine. No acute fracture. IMPRESSION: No acute findings in the chest. Electronically signed by: Cynthia Kirkland MD 04/07/25 22:18 PM
--- NOTE | 2025-04-08 11:11 | Discharge Summary ---
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 Now resolved. Hemoglobin is stable. She denies syncope. She has been seen by gastroenterology and since her bleeding has stopped and she is stable. They recommend follow-up with [facility] oncology and gastroenterology (2) Colostomy status: Previous surgery for squamous cell cancer of the anus. Colostomy fluid is dark brown liquid with no evidence of overt blood. (3) COPD (chronic obstructive pulmonary disease): Stable. Nebulizers as needed (4) Type 2 diabetes mellitus: She was given a clear liquid diet while hospitalized. She will resume her norm al oral intake at discharge. Sliding scale coverage while hospitalized (5) Opioid dependence: Chronic opioid use at home. Continue home medications. Use morphine IV as need ed Plan Home today, April 08 Admission HPI Per Admitting Provider 69-year-old white female with a history of squamous cell cancer of the anus status post resection in the past and colostomy. She is currently being treated for lung cancer by the [facility] oncologist. She states she has had bloody rectal drainage off-and-on for several days, confirmed by her son who is at the bedside. She also has abdominal pain and some nausea but denies vomiting. Colostomy is functioning well and there has been no bloody drainage in the colostomy bag. She came to the ED for evaluation. CT scan of the abdomen and pelvis reveals evidence of colitis with some luminal densities seen which could be clots. No obstruction. Current hemoglobin is 12. Potassium is slightly low at 3.3. She denies any syncope. She is admitted for further evaluation and treatment Discharge Exam General-alert and oriented x3, no fever, no chills HEENT-head atraumatic and normocephalic, pupils equal and reactive to light, extraocular muscles intact Neck-no lymphadenopathy or thyromegaly, trachea midline Chest-clear to auscultation. No rales, wheezing or rhonchi Cardiac-regular rate and rhythm, normal S1 and S2 Abdomen no hepatosplenomegaly. Functioning colostomy right lower quadrant. Diffusely tender with active bowel sounds. No palpable masses. No rebound or guarding Extremities-no cyanosis, clubbing, or edema Neuro-cranial nerves II through XII intact, motor and sensory function within normal limits, strength symmetrical, no focal deficits Psych-flat affect Discharge Plan Discharge Items Patient Disposition: Home - Self-Care Reason For Visit: RECTAL BLEEDING Discharge Diagnosis: Rectal bleeding Condition on Discharge: Good Activity: Resume your previous activity Non-emergency contact: Primary Care Provider, Fine D[employer] Server and Oncologist Call non-emergency contact if: you have any medication questions and your symptoms worsen Follow-up/Referrals: Sukh Holman MD [Primary Care Provider] - Diet: Carb Consistent or DM2 Addtl Attending Provider Instructions: Follow-up with your [facility] oncologist and hedis coordinator as soon as possible. All medications remain the same. Resume usual diabetic management at home Pending Studies at Discharge: No Stand-Alone Forms: My [employer], Smoking Cessation Medications and DC Order Prescriptions: Continued pramipexole 1 mg Tablet 1 mg PO TID cyanocobalamin (vitamin B-12) [Vitamin B-12] 1,000 mcg Tablet 1,000 mcg PO QAM Patient Comments: 02/15- otc unable to verify oxycodone 10 mg Tablet 10 mg PO Q4H MDD 3 TABS/24 HOURS PRN (Reason: Severe Pain (Scale Score 7-10)) ondansetron HCl 8 mg tablet 8 mg PO Q8H PRN (Reason: Nausea) albuterol sulfate 90 mcg/actuation HFA aerosol inhaler 2 puff inhalation Q4H PRN (Reason: Shortness Of Breath Or Wheezing) trazodone 50 mg tablet 50 mg PO HS metformin 1,000 mg tablet 1,000 mg PO BIDM Patient Comments: 02/15- last filled 04/26 90 day #180 fluticasone propionate [Flonase Allergy Relief] 50 mcg/actuation spray,suspension 2 spray INTRANASAL QAM PRN (Reason: Allergy Symptoms) atorvastatin 20 mg Tablet 0 mg PO DAILY Patient Comments: 02/15-last filled 08/05 90 day supply #90 aspirin 81 mg Tablet,Delayed Release (Dr/Ec) 81 mg PO QAM Patient Comments: 02/15- otc unable to verify Trelegy Ellipta 200-62.5-25 mcg blister with device 1 inh INHALATION DAILY propranolol 20 mg tablet 20 mg PO AMHS furosemide [Lasix] 40 mg tablet 40 mg PO DAILY PRN (Reason: Edema) Patient Comments: 02/15-last filled 06/12 90 day supply nystatin [Klayesta] 100,000 unit/gram powder 1 applic TOPICAL TID PRN (Reason: as needed) Patient Comments: 02/15- no fill history unable to verify bupropion HCl [Wellbutrin XL] 300 mg tablet extended release 24 hr 300 mg PO QAM gabapentin 300 mg capsule 0 mg PO TID Patient Comments: 02/15- last filled 10/16 90 day supply BID #180; original directions: 300mg TID albuterol sulfate 0.63 mg/3 mL Solution For Nebulization 0.63 mg INHALATION Q6H PRN (Reason: Wheezing) pantoprazole 40 mg tablet,delayed release (DR/EC) 40 mg PO DAILY PRN (Reason: Heartburn) Patient Comments: 02/15- last filled 04/01 90 day supply #90 valacyclovir [Valtrex] 1 gram Tablet 2,000 mg PO BID PRN (Reason: COLD SORES NEEDED) Patient Comments: 02/15- no fill history unable to verify prochlorperazine maleate 10 mg tablet 10 mg PO Q6H PRN (Reason: NAUSEA/VOMITING) folic acid 1 mg Tablet 1 mg PO DAILY Patient Comments: 02/15- otc unable to verify morphine 15 mg tablet extended release 15 mg PO BID Patient Comments: 02/15- last filled 01/08 30 day supply #60 dexamethasone 4 mg tablet 4 mg PO DIRECTED PRN (Reason: PRIOR TO CHEMO) potassium chloride 10 mEq capsule, extended release 20 meq PO DAILY Qty: 6 0RF tizanidine 2 mg tablet 2 mg PO Q6H PRN (Reason: Pain) magnesium 200 mg tablet 200 mg PO QAM Patient Comments: 02/15- otc unable to verify loperamide 2 mg capsule 4 mg PO DAILY PRN (Reason: loose stool/increased ostomy output) Qty: 14 0RF Rx Instructions: Take 2 capsules (4 mg) daily as needed for increased/liquid ostomy output measuring > 1000 mL in a day benzonatate 100 mg capsule 100 mg PO TID PRN (Reason: cough) Qty: 10 0RF Rx Instructions: Take 1 capsule 3 times daily as needed for cough Discharge Orders: Discharge Order (Routine); Ordered 04/08/25 Ordered By: Nikita Amaya Admission Data Admit Date/Time: 04/07/25 17:55 Attending Provider: Nikita Amaya Admit Provider: Nikita Amaya Primary Care Provider: Sukh Holman Other Providers: Christy Bhatia; Geovany Adorno; Annette Arnold; Carla Briones; Angelica Salvador; Madison Yanez; Bg Skaggs; Callie Harvey; Michelle Aguilar; Clara Marino; Kamini Beverly; Juanita Guillen; Radha Marcano; Emilia Pedersen; Heraclio Frye; Gerhard Garrido; Elli Olsen; Andrea Bynum Jr; Hong Greco; Russ Fraire; Jani Alarcon; Faviola Rosa; Carloz Roy I; Cami Morris; Darryl Cheung; Roni Ziegler; Jaime España; Keith Carpenter; Agatha Zuniga Hospital Stay Data Consultations 04/07/25 19:51 Consult Gastroenterology Routine Diagnostic Imagining Performed 04/07/25 13:17 CT abd pelvis IV con only Stat Pending Results Patient Have Any Pending Studies at Discharge: No Discharge Instructions Given to Patient (Per Discharging Provider) [facility] as possible. All medications remain the same. Resume usual diabetic management at home Total Time Total Time Spent Total Time Spent (In Minutes): 45 minutes. Total time included patient exam, discharge planning, medication reconciliation, and communication with other providers. Coding Level of Care Code 56485 INP/OBS DISCH >30 MIN Diagnoses Rectal bleeding K62.5 Colostomy status Z93.3 COPD (chronic obstructive pulmonary disease) J44.9 Type 2 diabetes mellitus E11.9 Opioid dependence F11.20
[2025-04-08 13:27] VITALS: BP 107/64; PULSE 68; RESP 22; TEMP 99.3; O2SAT 98
--- NOTE | 2025-04-08 21:19 | Electrocardiogram Report ---
Test Reason : Blood Pressure : */* mmHG Vent. Rate : 87 BPM Atrial Rate : 87 BPM P-R Int : 152 ms QRS Dur : 72 ms QT Int : 364 ms P-R-T Axes : 53 49 44 degrees QTcB Int : 438 ms Normal sinus rhythm inferior mi, old with possible posterior extension Abnormal ECG When compared with ECG [id number] 11:22, Premature atrial complexesare no longerPresent Confirmed by Jennifer Ness (Jj) on 04/08/2025 9:18:57 PM Referred By: REFERRED SELF Confirmed By: Jennifer Ness
--- NOTE | 2025-04-09 10:52 | Electrocardiogram Report ---
Test Reason : Blood Pressure : */* mmHG Vent. Rate : 94 BPM Atrial Rate : 94 BPM P-R Int : 144 ms QRS Dur : 72 ms QT Int : 344 ms P-R-T Axes : 62 52 55 degrees QTcB Int : 430 ms Sinus rhythm with Premature atrial complexes in a pattern of bigeminy Otherwise normal ECG When compared with ECG of 07-Apr-2025 11:44, Premature atrial complexes are now Present Confirmed by Jennifer Ness (Jj) on 04/09/2025 10:52:20 AM Referred By: REFERRED SELF Confirmed By: Jennifer Ness
== END 2025-04-08 13:27 | disposition home or self-care (01) | DRG 378 ==
LOC: SUATTDRO → ED 11:06 → EDINP 17:55 → INTOOBSV 17:55 → EDINP 19:51